=== PATIENT | male | born 1955 | race Caucasian/White ===

== ENCOUNTER 2016-05-28 11:41 | Emergency (ER) | payer MEDICARE, OTHER ==
[~2016-05-28] VITALS: Ht 180.3 cm; Wt 66.0 kg
[~2016-05-28 11:41] MED LIST: ASPI81TA82 PO; DILA8TAB4 PO; LOSA25TA31 PO; METO100 PO; NORV5TAB PO
[2016-05-28 11:43] VITALS: BP 216/117; PULSE 84; RESP 20; TEMP 97.8; O2SAT 95
[2016-05-28] MEDS ORDERED: CLINDAMYCIN PHOS 900 MG/6 ML VIAL IM ONE (13:00)
[2016-05-28] MEDS ORDERED: KETOROLAC TROMETHAMINE 60 MG/2 ML (IM) VIAL IM ONE (13:00)
[2016-05-28] MEDS ORDERED: LIDOCAINE 1%/EPINEPHrine 1:100,000 SOLN 20 ML VIAL INFIL ONE (13:00)
--- NOTE | 2016-05-28 13:04 | PD ---
HPI Chief Complaint: Skin Problem Time Seen by Provider: 12:59 Travel History International Travel<30 days: No Contact w/Intl Traveler<30days: No Traveled to known affect area: No History of Present Illness HPI 61-year-old male presents the emergency department with abscess to the right upper arm. 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 Patient states he had some erythema in the area yesterday and today has a very large indurated firm abscess with pain 10 over 10. Patient is in moderate distress. He denies fever, chills, or other symptoms. He has history of MRSA in the past. He is allergic to simvastatin. PFSH Past Medical History Arthritis: Yes Asthma: No Blood Disorders: No Anxiety: Yes Depression: No Heart Rhythm Problems: No Cancer: Yes Cardiovascular Problems: Yes Chemotherapy: Yes Chest Pain: No Congestive Heart Failure: No COPD: No Cerebrovascular Accident: Yes Coronary Artery Disease: Yes Diabetes: No Diminished Hearing: No Endocrine: No GERD: No Genitourinary: No Headaches: No Hepatitis: Yes (HEP C) Hiatal Hernia: No Hypertension: Yes Immune Disorder: Yes (HEP C) Kidney Stones: No Musculoskeletal: Yes Neurologic: Yes Psychiatric: Yes (PTSD) Respiratory: No Migraines: No Myocardial Infarction: Yes (2007) Radiation Therapy: Yes Renal Failure: No Seizures: No Sleep Apnea: Yes Ulcer: Yes Past Surgical History Abdominal Surgery: No AICD: No Appendectomy: No Arteriovenous Shunt: No Cardiac Surgery: No Cholecystectomy: No Ear Surgery: No Endocrine Surgery: No Eye Surgery: Yes Genitourinary Surgery: No Gynecologic Surgery: No Insulin Pump: No Joint Replacement: Yes (L SHOULDER) Oral Surgery: No Pacemaker: No Thoracic Surgery: No Other Surgery: Yes (PLASTIC SURGERY TO HEAD AND FACE ,) Social History Alcohol Use: No Tobacco Use: Yes (1 ppd) Substance Use: No Allergies-Medications (Allergen,Severity, Reaction): Coded Allergies: Simvastatin (Verified Allergy, Severe, Joint Pain, 10/07/15) COULD NOT TOLERATE STATINS *MDRO Multi-Drug Resistant Organism (Verified Allergy, Unknown, 10/07/15) MRSA Reported Meds & Prescriptions Reported Meds & Active Scripts Active Reported Norvasc (Amlodipine Besylate) 5 Mg Tab 5 Mg PO DAILY Dilaudid 8 mg (Hydromorphone HCl) 8 Mg Tab 8 Mg PO Q6H PRN Cozaar (Losartan Potassium) 25 Mg Tab 25 Mg PO DAILY Aspir-81 (Aspirin) 81 Mg Tab 162 Mg PO DAILY Metoprolol Tartrate 100 Mg Tab 100 Mg PO BID Review of Systems Except as stated in HPI: all other systems reviewed are Neg General / Constitutional: No: Fever Eyes: No: Visual changes HENT: No: Headaches Cardiovascular: No: Chest Pain or Discomfort Respiratory: No: Shortness of Breath Gastrointestinal: No: Abdominal Pain Genitourinary: No: Dysuria Musculoskeletal: No: Pain Skin: Positive Other (abscess), No Rash Neurologic: No: Weakness Psychiatric: No: Depression Endocrine: No: Polydipsia Hematologic/Lymphatic: No: Easy Bruising Physical Exam Narrative GENERAL: Patient is in moderate distress. SKIN: Warm and dry. Patient has a large obvious abscess to the right upper inner arm measuring 7 cm x 5 cm with localized erythema but no lymphangitis. HEAD: Atraumatic. Normocephalic. EYES: Pupils equal and round. No scleral icterus. No injection or drainage. ENT: No nasal bleeding or discharge. Mucous membranes pink and moist. Pharynx is normal. NECK: Trachea midline. No JVD. Supple without significant lymphadenopathy. CARDIOVASCULAR: Regular rate and rhythm. RESPIRATORY: No accessory muscle use. Clear to auscultation. Breath sounds equal bilaterally. MUSCULOSKELETAL: Extremities without clubbing, cyanosis, or edema. No obvious deformities. NEUROLOGICAL: Awake and alert. No obvious cranial nerve deficits. Motor grossly within normal limits. Five out of 5 muscle strength in the arms and legs. Normal speech. PSYCHIATRIC: Appropriate mood and affect; insight and judgment normal. Data Data Last Documented VS Vital Signs Date Time Temp Pulse Resp B/P Pulse Ox O2 Delivery O2 Flow Rate FiO2 05/28/16 11:43 97.8 84 20 216/117 95 Room Air Orders Wound Culture And Gram Stain (05/28/16 12:57) Ketorolac Inj (Toradol Inj) (05/28/16 13:00) Clindamycin Inj (Cleocin Inj) (05/28/16 13:00) Lidocai-Epi 1%-1:100,000 Inj (Xylocaine- (05/28/16 13:00) MDM Medical Decision Making Medical Screen Exam Complete: Yes Emergency Medical Condition: Yes Medical Record Reviewed: Yes Differential Diagnosis Cellulitis. Abscess. MRSA. Narrative Course Patient is medically stable at time of exam. I&D of abscess is performed with a large amount of pus removed as well as blood clots, and packing is applied. Patient is given 900 mg clindamycin IM as well as 60 mg Toradol IM. Wound cultures sent to the lab. Patient is given a prescription for clindamycin 300 mg 4 times a day for 10 days. Patient is given a prescription for ibuprofen 800 mg 3 times daily with food # 30. Dressing is to remain in place as discussed with the patient. Patient is return to the emergency Department in 2 days for packing removal and wound check. Patient should return sooner for any worsening symptoms develop as discussed. Work note is given. Procedures Procedure Narrative After the risks and benefits were discussed the following procedure was performed: INCISION AND DRAINAGE OF ABSCESS: The area was prepped and was sterilely draped. A subcutaneous wheal of 1 % Xylocaine with epinephrine with a total number 3 mL was used to anesthetize the area. The area was properly anesthetized. A number 11 scalpel was used to make a 1-cm incision across the area of the abscess. Cultures were obtained. The abscess was drained an irrigated with normal saline. Quarter inch iodoform packing was placed in the wound. Sterile dressing applied. Patient advised to have packing removed in two days. Diagnosis Primary Impression: Abscess Patient Instructions: Abscess Incision and Drainage (ED), General Instructions Departure Forms: Work Release Enter return to work date: Jun 01, 2016 Additional Instructions: I&D of abscess is performed with a large amount of pus removed as well as blood clots, and packing is applied. Patient is given 900 mg clindamycin IM as well as 60 mg Toradol IM. Wound cultures sent to the lab. Patient is given a prescription for clindamycin 300 mg 4 times a day for 10 days. Patient is given a prescription for ibuprofen 800 mg 3 times daily with food # 30. Dressing is to remain in place as discussed with the patient. Patient is return to the emergency Department in 2 days for packing removal and wound check. Patient should return sooner for any worsening symptoms develop as discussed. Work note is given. Med/Other Pt SpecificInfo: Prescription(s) given Disposition: 01 DISCHARGE HOME Condition: Stable Luther Villalba May 28, 2016 13:04
[2016-05-28] MEDS ORDERED: IBUP800T23 PO (13:06)
[2016-05-28] MEDS ORDERED: CLIN1CAP5 PO (13:06)
[2016-05-28] MEDS ORDERED: CLINDAMYCIN PHOS 600 MG/4 ML VIAL IM ONE (13:15)
== END 2016-05-28 14:36 | disposition home or self-care (01) ==
LOC: NEPB 11:41
DX: L02.413 Cutaneous abscess of right upper limb (principal); B95.61 Methicillin susceptible Staphylococcus aureus infection as the cause of diseases classified elsewhere
CPT/HCPCS: 10061; 86403; 87070; 87186; 96372; 99283; J1885

== ENCOUNTER 2016-05-29 12:07 | Inpatient (IN) | payer MEDICARE, OTHER ==
[2016-05-29] VITALS (12 sets, daily range): BP systolic 129–175; BP diastolic 58–100; PULSE 56–104; RESP 12–20; TEMP 92.7–99.2; O2SAT 95–99
[~2016-05-29] VITALS: Ht 180.3 cm; Wt 73.8 kg
[~2016-05-29 12:07] MED LIST changes: +CLIN1CAP5 PO; +IBUP800T23 PO; +NORMOSOL R INJ 2,000 ML IV ONE; +PHENYLEPH/NS 1000 MCG/10 ML SYR IV ONE; +PROPOFOL 200 MG/20 ML AMP IV ONE; +ePHEDrine/NS 25 MG/5 ML SYR IV ONE
[2016-05-29] MEDS ORDERED: MORPHINE SULFATE 8 MG/ML INJ ONE (12:19)
[2016-05-29] MEDS ORDERED: ONDANSETRON HCL 4 MG/2 ML VIAL ONE (12:19)
--- NOTE | 2016-05-29 12:41 | PD ---
HPI Chief Complaint: Bleeding Time Seen by Provider: 12:13 Travel History International Travel<30 days: No Contact w/Intl Traveler<30days: No Traveled to known affect area: No History of Present Illness HPI Patient is a pleasant 61-year-old male who presents the emergency department with complaint of bleeding. Patient was here yesterday and had an I&D of an abscess in his right upper extremity on the inner aspect of the bicep. 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 The abscess was incised, drained and purulent fluid and a small amount of clot was removed. This is packed and patient has been doing well in the interim. Approximately 15 minutes prior to arrival patient had pulsatile blood coming from the area of the incision and drainage. He notes pain at the site, denies any lightheadedness, dizziness or syncope. PFSH Past Medical History Arthritis: Yes Asthma: No Blood Disorders: No Anxiety: Yes Depression: No Heart Rhythm Problems: No Cancer: Yes Cardiovascular Problems: Yes Chemotherapy: Yes (X 2 R/T PROSTATE CA) Chest Pain: No Congestive Heart Failure: No COPD: No Cerebrovascular Accident: Yes Coronary Artery Disease: Yes Diabetes: No Diminished Hearing: No Endocrine: No Gastrointestinal Disorders: Yes GERD: No Genitourinary: No Headaches: No Hepatitis: Yes (HEP C) Hiatal Hernia: No Hypertension: Yes Immune Disorder: Yes (HEP C) Kidney Stones: No Musculoskeletal: Yes Neurologic: Yes Psychiatric: Yes (PTSD) Respiratory: No Migraines: No Myocardial Infarction: Yes (2007) Radiation Therapy: Yes Renal Failure: No Seizures: No Sleep Apnea: Yes Ulcer: Yes Past Surgical History Abdominal Surgery: No AICD: No Appendectomy: No Arteriovenous Shunt: No Cardiac Surgery: No Cholecystectomy: No Ear Surgery: No Endocrine Surgery: No Eye Surgery: Yes Genitourinary Surgery: No Gynecologic Surgery: No Insulin Pump: No Joint Replacement: Yes (L SHOULDER) Neurologic Surgery: No Oral Surgery: No Pacemaker: No Thoracic Surgery: No Other Surgery: Yes (PLASTIC SURGERY TO HEAD AND FACE ,) Social History Alcohol Use: No Tobacco Use: Yes (1 ppd) Substance Use: No Allergies-Medications (Allergen,Severity, Reaction): Coded Allergies: Simvastatin (Verified Allergy, Severe, Joint Pain, 05/29/16) COULD NOT TOLERATE STATINS *MDRO Multi-Drug Resistant Organism (Verified Allergy, Unknown, 05/29/16) MRSA Reported Meds & Prescriptions Reported Meds & Active Scripts Active Ibuprofen 800 Mg Tab 800 Mg PO Q8H PRN Clindamycin (Clindamycin HCl) 150 Mg Cap 300 Mg PO Q6H 10 Days Reported Norvasc (Amlodipine Besylate) 5 Mg Tab 5 Mg PO DAILY Dilaudid 8 mg (Hydromorphone HCl) 8 Mg Tab 8 Mg PO Q6H PRN Cozaar (Losartan Potassium) 25 Mg Tab 25 Mg PO DAILY Aspir-81 (Aspirin) 81 Mg Tab 162 Mg PO DAILY Metoprolol Tartrate 100 Mg Tab 100 Mg PO BID Review of Systems ROS Limitations: Clinical Condition Except as stated in HPI: all other systems reviewed are Neg Physical Exam Exam Limitations: Clinical Condition Narrative GENERAL: Well-appearing male with arterial bleeding come from the right upper extremity SKIN: Warm slightly diaphoretic. Focused exam of the skin of the right upper extremity reveals wound, see below HEAD: Normocephalic. EYES: No scleral icterus. No injection or drainage. ENT: Mucous membranes pink and moist. NECK: Supple CARDIOVASCULAR: Regular rate and rhythm. RESPIRATORY: No accessory muscle use. MUSCULOSKELETAL: Right upper extremity incision and drainage site along the inner aspect of the bicep region with ecchymotic swollen region with palpable thrill, pulse. There is active arterial bleeding, direct pressure was placed. Distal pulses, capillary refill are intact. Denies any numbness or tingling in distal strength/function intact. NEUROLOGICAL: Awake and alert. Normal speech. PSYCHIATRIC: Appropriate mood and affect; insight and judgment normal. Data Data Last Documented VS Vital Signs Date Time Temp Pulse Resp B/P Pulse Ox O2 Delivery O2 Flow Rate FiO2 05/29/16 12:07 98.0 104 20 140/100 99 Orders Basic Metabolic Panel (Bmp) (05/29/16 12:14) Complete Blood Count With Diff (05/29/16 12:14) Prothrombin Time / Inr (Pt) (05/29/16 12:14) Act Partial Throm Time (Ptt) (05/29/16 12:14) Type And Screen (05/29/16 12:14) Iv Access Insert/Monitor (05/29/16 12:14) Ecg Monitoring (05/29/16 12:14) Oximetry (05/29/16 12:14) Oxygen Administration (05/29/16 12:14) Sodium Chloride 0.9% Flush (Ns Flush) (05/29/16 12:15) Us Arm Hematoma/Pseudoaneurysm (05/29/16 ) Morphine Inj (Morphine Inj) (05/29/16 12:19) Ondansetron Inj (Zofran Inj) (05/29/16 12:19) Admit Order (Ed Use Only) (05/29/16 12:34) MDM Medical Decision Making Medical Screen Exam Complete: Yes Emergency Medical Condition: Yes Medical Record Reviewed: Yes Differential Diagnosis 61-year-old male here with complaint of right upper extremity bleeding after I& D performed yesterday. Differential includes pseudoaneurysm, AV fistula, arterial and/or venous injury. Narrative Course Patient emergently bedded and met by myself. Placed on monitor, multiple IV attempts were unsuccessful by nursing in the EJ was placed by myself. Blood obtained. Direct pressure was held along the active arterial bleeding in the right upper extremity with hemostasis. Patient's distal pulses remain intact. A tourniquet was placed prophylactically but was not use while the patient was in the emergency department. Vascular surgery was emergently consulted and emergent ultrasound was performed to evaluate for AV fistula versus pseudoaneurysm. Dr. Martino came to bedside as ultrasound was being performed, showing pseudoaneurysm. Patient will be taken emergently to the OR for operative control. Labs remain pending at time of this dictation. Critical Care Narrative Aggregate critical care time was 40 minutes. Time to perform other separately billable procedures was not included in the critical care time. My time did not include minutes spent treating any other patients simultaneously or on activities that did not directly contribute to the patient's treatment. The services I provided to this patient were to treat and/or prevent clinically significant deterioration that could result in: Hemorrhage, loss of limb, , disability I provided critical care services requiring my management, as noted below: Chart data review, documentation time, medication orders and management, vital sign assessments/reviewing monitor data, ordering and reviewing lab tests, ordering and interpreting/reviewing x-rays and diagnostic studies, care of the patient and discussion of the patient with the admitting physicians. Procedures Procedure Narrative External jugular 18-gauge IV was placed in the left neck with success. Diagnosis Primary Impression: Pseudoaneurysm of brachial artery Admitting Information Admitting Physician Requests: Admit Sita Heard MD May 29, 2016 12:41
[2016-05-29 12:45] LABS: AUTOMATED NEUTROPHIL # 7.8 TH/MM3 (1.8-7.7); BASOPHIL # 0.1 TH/MM3 (0-0.2); BASOPHIL % 0.6 % (0.0-2.0); EOSINOPHIL # 0.2 TH/MM3 (0-0.4); EOSINOPHIL % 2.2 % (0.0-4.0); HEMATOCRIT 33.4 % (39.0-51.0); HEMO FLAGS DIFF FINAL; LYMPH % 15.2 % (9.0-44.0); LYMPHOCYTE # 1.6 TH/MM3 (1.0-4.8); MEAN CELL VOLUME 84.5 FL (80.0-100.0); MEAN CORPUSCULAR HEMOGLOBIN 28.9 PG (27.0-34.0); MEAN CORPUSCULAR HGB CONC 34.2 % (32.0-36.0); MONO % 9.4 % (0.0-8.0); NEUT % 72.6 % (16.0-70.0); PLATELET COUNT 248 TH/MM3 (150-450); RED BLOOD COUNT 3.96 MIL/MM3 (4.50-5.90); RED CELL DISTRIBUTION WIDTH 14.9 % (11.6-17.2); WHITE BLOOD COUNT 10.8 TH/MM3 (4.0-11.0)
--- NOTE | 2016-05-29 12:50 | RADRPT ---
EXAM DATE/TIME: 05/29/2016 12:19 CORRECTION Corrected on: May 29, 2016; [facility] COMPARISON: No previous studies available for comparison. INDICATIONS : Right arm puncture four days ago, irrigation and drainage 05/28/16. Patient has pulsatile mass right a rm today. MEDICAL HISTORY : Hypertension. Cardiovascular disease Hepatitis C. Chemotherapy. CVA. CAD. SURGICAL HISTORY : Left shoulder surgery. I&D 05/28/16 right arm. ENCOUNTER: Initial ACUITY: 1 day PAIN SCORE: Nonresponsive. LOCATION: Right arm. AREA EVALUATED: Right arm. FINDINGS: There is a pseudoaneurysm in the right arm with pulsatile flow is 2.5 cm. CONCLUSION: Pseudoaneurysm right arm. Corey Hays MD FACR on May 29, 2016 at 12:48 Board Certified Radiologist. This report was verified electronically. Corey Hays MD FACR on May 29, 2016 at 13:10 Board Certified Radiologist. This report was verified electronically.
--- NOTE | 2016-05-29 12:52 | PD.VS.CON ---
History of Present Illness Chief Complaint: R arm pseudoaneurysm Consult Requested by: Dr. Heard, ED History of Present Illness 61 yo male with h/o "boil" R UE, lanced in ED yesterday, swollen today and presented to ED, started bleeding and clinically has clear pseudoaneurysm. No hand trouble. 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 Home Medications Active Scripts Ibuprofen 800 Mg [id number] Mg PO Q8H PRN (Pain/Inflammation) #30 TAB Prov:Guido Del Rio MD 05/28/16 Clindamycin 150 Mg [id number] Mg PO Q6H 10 Days Prov:Guido Del Rio MD 05/28/16 Reported Medications Norvasc 5 Mg Tab5 Mg PO DAILY 09/01/14 Hydromorphone 8 mg (Dilaudid 8 mg)8 Mg Tab8 Mg PO Q6H PRN 07/04/13 Losartan Potassium (Cozaar)25 Mg Tab25 Mg PO DAILY 12/05/11 Aspirin (Aspir-81)81 Mg [id number] Mg PO DAILY 12/05/11 Metoprolol Tartrate 100 Mg [id number] Mg PO BID 12/05/11 Coded Allergies: Simvastatin (Verified Allergy, Severe, Joint Pain, 05/29/16) COULD NOT TOLERATE STATINS *MDRO Multi-Drug Resistant Organism (Verified Allergy, Unknown, 05/29/16) MRSA Review of Systems Constitutional: DENIES: Fever, Chills Cardiovascular: DENIES: Chest pain, Claudication Physical Exam Vitals/I&O Date Time Temp Pulse Resp B/P Pulse Ox O2 Delivery O2 Flow Rate FiO2 05/29/16 12:07 98.0 104 20 140/100 99 Neuro: intact, alert, responsive HEENT: NC/AT old posterior head trauma Neck: no JVD Heart: reg rate Lungs: nonlabored Vascular: R UE palpable ulnar pulse R UE with clear pseudoaneurysm with no active extravasation but very tenuous Laboratory Tests Test 05/29/16 12:35 White Blood Count 10.8 Red Blood Count 3.96 Hemoglobin 11.4 Hematocrit 33.4 Mean Corpuscular Volume 84.5 Mean Corpuscular Hemoglobin 28.9 Mean Corpuscular Hemoglobin 34.2 Concent Red Cell Distribution Width 14.9 Platelet Count 248 Mean Platelet Volume 7.9 Neutrophils (%) (Auto) 72.6 Lymphocytes (%) (Auto) 15.2 Monocytes (%) (Auto) 9.4 Eosinophils (%) (Auto) 2.2 Basophils (%) (Auto) 0.6 Neutrophils # (Auto) 7.8 Lymphocytes # (Auto) 1.6 Monocytes # (Auto) 1.0 Eosinophils # (Auto) 0.2 Basophils # (Auto) 0.1 CBC Comment DIFF FINAL Differential Comment Assessment and Plan Plan OR emergently for exploration and likely arterial bypass. I explained the procedure to the patient and he understands. Operative site marked. To OR. Ismael Martino MD May 29, 2016 12:51
[2016-05-29 12:58] LABS: APTT (PATIENT) 22.2 SEC (24.3-30.1); PROTHROMBIN TIME - PATIENT 10.8 SEC (9.8-11.6)
[2016-05-29 12:59] LABS: BICARBONATE 23.8 MEQ/L (21.0-32.0); POTASSIUM 3.8 MEQ/L (3.5-5.1)
[2016-05-29] MEDS ORDERED: ceFAZolin INJ 1,000 MG VIAL IV ONE (13:35)
[2016-05-29] MEDS ORDERED: HEPARIN SODIUM - IV 10,000 UNITS/10 ML VIAL ONE (14:10)
[2016-05-29] MEDS ORDERED: ceFAZolin 2 GM PREMIX 50 ML ONE (14:10)
[2016-05-29] MEDS ORDERED: HEPARIN SODIUM - SQ 10,000 UNITS/ML VIAL ONE (14:10)
[2016-05-29] MEDS ORDERED: THROMBIN (TOPICAL) 5,000 UNIT VIAL OTHER ONE (15:04)
--- NOTE | 2016-05-29 15:35 | HHI.PR ---
Immediate Post Op Note Procedure Date: May 29, 2016 Pre Op Diagnosis: RIGHT brachial pseudoaneurysm Post Op Diagnosis: RIGHT brachial pseudoaneurysm Surgeon: Ismael Martino Brick Burner(s): Kristy Dorsey Procedure: R brachial artery bypass with interposition R GSV (reversed) Findings: pseudoaneurysm with degenerated artery, very inflamed tissue Additional Information: strong radial and ulnar Doppler signals after bypass Complications: none apparent Specimen(s) removed: none Estimated blood loss: 250 mL Anesthesia: General Drains: None Fluids: 4700 mL x'oid; 250 mL UOP IVF Patient to: Other ([facility]) Patient Condition: Good Implant/Devices: SEE IMPLANT LOG (if applicable) Date/Time of Procedure: SEE SURGICAL CARE RECORD Ismael Martino MD May 29, 2016 15:35
[2016-05-29] MEDS ORDERED: diphenhydrAMINE HCL 50 MG/ML VIAL IV PRN (15:45)
[2016-05-29] MEDS ORDERED: diphenhydrAMINE HCL 25 MG CAP PO PRN (15:45)
[2016-05-29] MEDS ORDERED: NALOXONE HCL 0.4 MG/ML AMP IV PRN (15:45)
[2016-05-29] MEDS ORDERED: DO NOT ADM ANY ANTICOAGULANT DRUGS XX PRN (15:48)
[2016-05-29] MEDS ORDERED: THROMBIN (TOPICAL) 5,000 UNIT VIAL ONE (16:10)
[2016-05-29] MEDS ORDERED: MIDAZOLAM HCL 2 MG/2 ML VIAL ONE (16:13)
[2016-05-29] MEDS ORDERED: MORPHINE SULFATE 4 MG/ML INJ ONE ×3 (16:13→17:49)
[2016-05-29] MEDS ORDERED: fentaNYL CITRATE 250 MCG/5 ML AMP ONE (16:13)
[2016-05-29] MEDS ORDERED: ENALAPRILAT 2.5 MG/2 ML VIAL ONE (16:38)
[2016-05-29] MEDS: HYDROmorphone HCL PCA 6 MG/30 ML IV SCH ×2 (16:48→23:07)
[2016-05-29 18:00] LABS: HEMATOCRIT 26.4 % (39.0-51.0); MEAN CELL VOLUME 83.7 FL (80.0-100.0); MEAN CORPUSCULAR HEMOGLOBIN 28.4 PG (27.0-34.0); MEAN CORPUSCULAR HGB CONC 33.9 % (32.0-36.0); PLATELET COUNT 194 TH/MM3 (150-450); RED BLOOD COUNT 3.16 MIL/MM3 (4.50-5.90); REVIEW FLAG FINAL; WHITE BLOOD COUNT 9.5 TH/MM3 (4.0-11.0)
[2016-05-29] MEDS: MORPHINE SULFATE 4 MG/ML INJ IV PRN ×5 (18:09→22:33)
[2016-05-29 18:29] LABS: POTASSIUM 3.4 MEQ/L (3.5-5.1)
[2016-05-29 19:15] LABS: CALCIUM-PROTEIN CORRECTED 7.7 MG/DL (8.5-10.1)
[2016-05-29] MEDS ORDERED: ENOXAPARIN SODIUM 30 MG/0.3 ML SYRINGE SQ SCH (20:00)
[2016-05-29] MEDS: ATORVASTATIN 40 MG TAB PO SCH (20:30)
[2016-05-29] MEDS: SODIUM CHLORIDE 0.9% FLUSH 5 ML FLUSH IVF PRN (20:30)
[2016-05-29] MEDS: METOPROLOL TARTRATE 50 MG TAB PO SCH (20:30)
[2016-05-29] MEDS: DOCUSATE SODIUM 100 MG CAP PO SCH (21:00)
[2016-05-29] MEDS: PCA - TOTAL MG DILAUDID DELIVERED PER SHIFT OTHER SCH (22:00)
[2016-05-29] MEDS: ceFAZolin 1,000 MG/NS 100 ML IV SCH ×2 (22:42)
[2016-05-30] VITALS (15 sets, daily range): BP systolic 129–164; BP diastolic 59–90; PULSE 51–80; RESP 16–20; TEMP 98.7–102.5; O2SAT 94–98
[2016-05-30] MEDS: MORPHINE SULFATE 4 MG/ML INJ IV PRN ×7 (01:51→22:53)
[2016-05-30] MEDS: METOPROLOL TARTRATE 5 MG/5 ML VIAL IV PUSH PRN (01:52)
[2016-05-30] MEDS ORDERED: ACETAMINOPHEN 325 MG TAB ONE (03:17)
[2016-05-30] MEDS ORDERED: ACETAMINOPHEN 325 MG TAB PO PRN (03:30)
[2016-05-30 04:09] LABS: HEMATOCRIT 24.4 % (39.0-51.0); MEAN CELL VOLUME 83.4 FL (80.0-100.0); MEAN CORPUSCULAR HEMOGLOBIN 28.6 PG (27.0-34.0); MEAN CORPUSCULAR HGB CONC 34.3 % (32.0-36.0); PLATELET COUNT 177 TH/MM3 (150-450); RED BLOOD COUNT 2.93 MIL/MM3 (4.50-5.90); RED CELL DISTRIBUTION WIDTH 15.2 % (11.6-17.2); REVIEW FLAG FINAL; WHITE BLOOD COUNT 5.9 TH/MM3 (4.0-11.0)
[2016-05-30 04:27] LABS: BICARBONATE 25.5 MEQ/L (21.0-32.0); POTASSIUM 3.8 MEQ/L (3.5-5.1)
[2016-05-30] MEDS: PCA - TOTAL MG DILAUDID DELIVERED PER SHIFT OTHER SCH ×3 (06:00→22:00)
[2016-05-30] MEDS: ceFAZolin 1,000 MG/NS 100 ML IV SCH ×6 (06:18→22:49)
[2016-05-30] MEDS: PANTOPRAZOLE SOD 40 MG DELAYED RELEASE TAB PO SCH (08:12)
[2016-05-30] MEDS: METOPROLOL TARTRATE 50 MG TAB PO SCH ×2 (08:12→20:39)
[2016-05-30] MEDS: ASPIRIN 325 MG TAB PO SCH (08:12)
[2016-05-30] MEDS: DOCUSATE SODIUM 100 MG CAP PO SCH ×2 (08:13→20:39)
[2016-05-30] MEDS: SODIUM CHLORIDE 0.9% FLUSH 5 ML FLUSH IVF PRN (08:14)
--- NOTE | 2016-05-30 09:14 | PD.VS.PN ---
Subjective POD #: 1 Procedure(s): R brachial artery bypass with rR GSV Subjective/Hospital Course Burning in R arm but hand ok with good strength and normal motor function. Objective Vitals/I&O Date Time Temp Pulse Resp B/P Pulse Ox O2 Delivery O2 Flow Rate FiO2 05/30/16 08:17 98 Nasal Cannula 2.00 05/30/16 08:00 58 05/30/16 08:00 99.0 64 20 164/72 94 155/59 05/30/16 07:17 18 05/30/16 06:00 22 05/30/16 06:00 80 05/30/16 03:00 102.5 76 18 156/78 96 135/64 05/30/16 03:00 76 05/30/16 02:00 73 05/30/16 01:20 98 Nasal Cannula 2.00 05/30/16 01:00 61 05/30/16 00:00 58 05/29/16 23:07 18 05/29/16 23:00 99.2 65 18 146/90 95 145/58 05/29/16 23:00 76 05/29/16 22:00 71 05/29/16 22:00 20 05/29/16 21:00 72 05/29/16 20:00 70 05/29/16 19:01 18 05/29/16 19:00 72 05/29/16 19:00 97.6 72 18 129/62 97 05/29/16 16:48 12 05/29/16 16:24 92.7 62 12 154/62 98 151/93 05/29/16 16:00 56 05/29/16 12:50 86 18 150/86 96 Room Air 05/29/16 12:45 82 18 169/91 97 Room Air 05/29/16 12:38 84 18 175/98 96 Room Air 05/29/16 12:30 85 18 97 Room Air 05/29/16 12:30 96 Room Air 05/29/16 12:30 97 Room Air 05/29/16 12:07 98.0 104 20 140/100 99 Exam: R arm wrapped Palpable R radial pulse, 2+ Good hand strength Laboratory Laboratory Tests Test 05/29/16 05/29/16 05/29/16 05/30/16 12:35 16:00 17:30 03:45 White Blood Count 10.8 9.5 5.9 Red Blood Count 3.96 3.16 2.93 Hemoglobin 11.4 9.0 8.4 Hematocrit 33.4 26.4 24.4 Mean Corpuscular Volume 84.5 83.7 83.4 Mean Corpuscular Hemoglobin 28.9 28.4 28.6 Mean Corpuscular Hemoglobin 34.2 33.9 34.3 Concent Red Cell Distribution Width 14.9 15.0 15.2 Platelet Count 248 194 177 Mean Platelet Volume 7.9 7.5 7.9 Neutrophils (%) (Auto) 72.6 Lymphocytes (%) (Auto) 15.2 Monocytes (%) (Auto) 9.4 Eosinophils (%) (Auto) 2.2 Basophils (%) (Auto) 0.6 Neutrophils # (Auto) 7.8 Lymphocytes # (Auto) 1.6 Monocytes # (Auto) 1.0 Eosinophils # (Auto) 0.2 Basophils # (Auto) 0.1 CBC Comment DIFF FINAL Differential Comment Prothrombin Time 10.8 Prothromb Time International 1.0 Ratio Activated Partial 22.2 Thromboplast Time Sodium Level 138 140 143 Potassium Level 3.8 3.4 3.8 Chloride Level 105 105 108 Carbon Dioxide Level 23.8 26.0 25.5 Anion Gap 9 9 10 Blood Urea Nitrogen 48 39 36 Creatinine 2.47 2.00 2.10 Estimat Glomerular Filtration 27 34 32 Rate Random Glucose 142 101 115 Calcium Level 8.1 7.0 7.5 Blood Type O POSITIVE Antibody Screen NEGATIVE Nasal Screen MRSA (PCR) NEGATIVE Protein Corrected Calcium 7.7 Total Protein 5.8 Assessment and Plan Plan 1. Bypass patent; needs PT/hand exercises 2. Hct stable. 3. Will take arm dressing down tomorrow 4. Cardiac diet, Servin out, a-line out 5. Creatinine 2.1 from 2.5. Likely baseline. Good UOP. Ismael Martino MD May 30, 2016 09:14
[2016-05-30] MEDS: HYDROmorphone HCL PCA 6 MG/30 ML IV SCH (11:10)
[2016-05-30] MEDS: HEPARIN SODIUM - SQ 10,000 UNITS/ML VIAL SQ SCH ×2 (15:16→22:49)
[2016-05-30] MEDS: ATORVASTATIN 40 MG TAB PO SCH (20:39)
[2016-05-31] VITALS (11 sets, daily range): BP systolic 155–175; BP diastolic 74–94; PULSE 50–72; RESP 16–18; TEMP 97.4–98.3; O2SAT 94–99
[2016-05-31] MEDS: SODIUM CHLOR 0.9% 1000 ML INJ 1,000 ML IV SCH ×3 (00:59→17:38)
[2016-05-31] MEDS: MORPHINE SULFATE 4 MG/ML INJ IV PRN ×8 (01:43→23:52)
[2016-05-31] MEDS: PCA - TOTAL MG DILAUDID DELIVERED PER SHIFT OTHER SCH ×3 (05:28→22:00)
[2016-05-31] MEDS: HEPARIN SODIUM - SQ 10,000 UNITS/ML VIAL SQ SCH ×2 (06:07→15:00)
[2016-05-31] MEDS: ceFAZolin 1,000 MG/NS 100 ML IV SCH ×4 (06:07→15:00)
[2016-05-31 07:11] LABS: HEMATOCRIT 22.2 % (39.0-51.0); MEAN CELL VOLUME 84.7 FL (80.0-100.0); MEAN CORPUSCULAR HEMOGLOBIN 28.6 PG (27.0-34.0); MEAN CORPUSCULAR HGB CONC 33.8 % (32.0-36.0); PLATELET COUNT 158 TH/MM3 (150-450); RED BLOOD COUNT 2.62 MIL/MM3 (4.50-5.90); RED CELL DISTRIBUTION WIDTH 15.2 % (11.6-17.2); REVIEW FLAG FINAL; WHITE BLOOD COUNT 5.7 TH/MM3 (4.0-11.0)
[2016-05-31 07:26] LABS: BICARBONATE 25.5 MEQ/L (21.0-32.0); POTASSIUM 4.3 MEQ/L (3.5-5.1)
[2016-05-31] MEDS: PANTOPRAZOLE SOD 40 MG DELAYED RELEASE TAB PO SCH (08:21)
[2016-05-31] MEDS: ASPIRIN 325 MG TAB PO SCH (08:21)
[2016-05-31] MEDS: DOCUSATE SODIUM 100 MG CAP PO SCH ×2 (08:21→20:01)
[2016-05-31] MEDS: METOPROLOL TARTRATE 50 MG TAB PO SCH ×2 (08:21→20:01)
[2016-05-31] MEDS: HYDROmorphone HCL PCA 6 MG/30 ML IV SCH (08:34)
--- NOTE | 2016-05-31 09:20 | MP ---
cc: EDWARDO MARTINO MD DATE OF SURGERY: 05/29/2016 PREOPERATIVE DIAGNOSIS: 1. Right brachial artery pseudoaneurysm. POSTOPERATIVE DIAGNOSIS: 1. Right brachial artery pseudoaneurysm. PROCEDURE Repair of right brachial artery pseudoaneurysm with interposition graft using reverse right saphenous vein. ATTENDING SURGEON Edwardo Martino MD BRAND EXECUTIVE SURGEON Kristy Dorsey ANESTHESIA General. INDICATION Mr. Beard is a 61-year-old gentleman who came in through the emergency department with a clear pseudoaneurysm, active extravasation and zoë bleeding. Manual pressure was held and he was taken to the operating room emergently. DESCRIPTION OF PROCEDURE No informed consent was obtained from the patient, this is an emergency procedure, but I had a long conversation with the patient and detailed the operative risks and he verbally provided consent in front of several witnesses. He was taken to the operating room, placed supine on the operating table. Appropriate timeout was taken to ensure the patient's identity, the operative site and planned procedure. 2 grams of Kefzol was initiated prior to skin incision, but we discontinued after a single preoperative dose. Everyone in the room agreed with the timeout procedure. His right arm was prepped and draped as well as both lower extremities. Incision was made in the medial aspect of the upper thigh on the right-hand side, carried down to subcutaneous tissue with electrocautery. The saphenous vein was identified, side branches were ligated with 3-0 Silk. The vein was marked for orientation, clamped proximally and distally, tied and resected. The wound was irrigated and closed with 2-0 Polysorb, 3-0 Polysorb and 4-0 Monocryl. Proximal control of the brachial artery was obtained. We now make an incision in the upper arm and carried down to the subcutaneous tissue with electrocautery. Dense inflammation was encountered and the mid brachial artery was encircled with a vessel loop. We then dissected down distally into the pseudoaneurysm itself. A hematoma was encountered. Two fresh ends of the artery were identified and completely and were clamped with the profunda clamps. The edges were then cleaned up and we resected these back proximally and distally. The patient was systemically heparinized with 6000 units of IV heparin. The mid brachial artery was transected, the distal ends oversewn with 3-0 Silk. The artery was spatulated and the vein was flushed and sewn end-to-end with running 6-0 Prolene suture. At the completion it was flushed and noted to be hemostastic. The vein was then clamped distally, marked for orientation and the distal end of the brachial artery was freshened surgically. The edges of the distal endobrachial artery were freshened surgically and the vein and artery were spatulated and sewn end-to-end with running 6-0 Prolene suture. At the completion it was flushed and noted to be hemostatic. There were nice Doppler signals in the wrist. The heparin was reversed with protamine. The wound was then irrigated with pulse lavage, debrided and closed with 2-0 Polysorb, 3-0 Polysorb and 3-0 Nylon. Sponge and needle counts were correct at the end of the case. I was present and scrubbed and performed the entire procedure. MD MOHAN Salazar/MO /3:38 PM /8:35 AM
--- NOTE | 2016-05-31 09:33 | PD.VS.PN ---
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 Hand ok, good strength. Objective Vitals/I&O Date Time Temp Pulse Resp B/P Pulse Ox O2 Delivery O2 Flow Rate FiO2 05/31/16 08:34 18 05/31/16 07:32 97 Nasal Cannula 2.00 05/31/16 05:30 16 05/31/16 05:28 16 05/31/16 04:00 98.2 52 16 155/80 94 05/31/16 03:30 50 05/30/16 23:50 51 05/30/16 23:00 99.0 51 16 150/85 96 05/30/16 22:00 16 05/30/16 20:39 18 05/30/16 20:00 99.4 61 16 151/86 97 Arterial Line 05/30/16 19:55 96 Nasal Cannula 2.00 05/30/16 19:08 68 05/30/16 15:00 61 05/30/16 15:00 99.7 61 20 153/90 97 05/30/16 14:00 16 05/30/16 13:20 16 05/30/16 11:10 21 05/30/16 11:00 53 05/30/16 11:00 98.7 53 20 129/80 95 05/31/16 05/31/16 05/31/16 07:00 15:00 23:00 Intake Total 1772 ml Output Total 550 ml Balance 1222 ml Exam: R UE with incision intact, minimal erythema mid-wound. R LE saphenectomy intact Pulses: Palpable radial pulse Laboratory Laboratory Tests Test 05/31/16 05:45 White Blood Count 5.7 Red Blood Count 2.62 Hemoglobin 7.5 Hematocrit 22.2 Mean Corpuscular Volume 84.7 Mean Corpuscular Hemoglobin 28.6 Mean Corpuscular Hemoglobin 33.8 Concent Red Cell Distribution Width 15.2 Platelet Count 158 Mean Platelet Volume 8.6 Sodium Level 142 Potassium Level 4.3 Chloride Level 112 Carbon Dioxide Level 25.5 Anion Gap 5 Blood Urea Nitrogen 32 Creatinine 1.83 Estimat Glomerular Filtration 38 Rate Random Glucose 101 Calcium Level 7.8 Assessment and Plan Plan 1. Bypass patent; continue hand exercises 2. Daily dry dressing 3. On Kefzol - if worsening erythema tomorrow, will broaden 4. Creatinine continues to improve - 1.8 today Ismael Martino MD May 31, 2016 09:33
[2016-05-31] MEDS ORDERED: hydrALAZINE HCL 20 MG/ML VIAL ONE (17:06)
[2016-05-31] MEDS: hydrALAZINE HCL 20 MG/ML VIAL IV PRN (17:16)
[2016-05-31] MEDS: ATORVASTATIN 40 MG TAB PO SCH (20:01)
[2016-06-01] VITALS (15 sets, daily range): BP systolic 143–197; BP diastolic 76–104; PULSE 55–81; RESP 16–18; TEMP 98.3–99.5; O2SAT 95–98
[2016-06-01] MEDS: HEPARIN SODIUM - SQ 10,000 UNITS/ML VIAL SQ SCH ×4 (01:03→23:17)
[2016-06-01] MEDS: ceFAZolin 1,000 MG/NS 100 ML IV SCH ×8 (01:03→23:17)
[2016-06-01] MEDS: MORPHINE SULFATE 4 MG/ML INJ IV PRN ×4 (03:13→21:46)
[2016-06-01] MEDS: hydrALAZINE HCL 20 MG/ML VIAL IV PRN ×3 (03:35→22:23)
[2016-06-01] MEDS: SODIUM CHLOR 0.9% 1000 ML INJ 1,000 ML IV SCH (03:38)
[2016-06-01 04:32] LABS: BICARBONATE 24.4 MEQ/L (21.0-32.0); POTASSIUM 4.3 MEQ/L (3.5-5.1)
[2016-06-01] MEDS: METOPROLOL TARTRATE 5 MG/5 ML VIAL IV PUSH PRN ×2 (04:55→05:00)
[2016-06-01 05:03] LABS: HEMATOCRIT 25.7 % (39.0-51.0); MEAN CELL VOLUME 83.3 FL (80.0-100.0); MEAN CORPUSCULAR HEMOGLOBIN 28.5 PG (27.0-34.0); MEAN CORPUSCULAR HGB CONC 34.2 % (32.0-36.0); PLATELET COUNT 170 TH/MM3 (150-450); RED BLOOD COUNT 3.09 MIL/MM3 (4.50-5.90); RED CELL DISTRIBUTION WIDTH 15.3 % (11.6-17.2); REVIEW FLAG FINAL; WHITE BLOOD COUNT 8.7 TH/MM3 (4.0-11.0)
[2016-06-01] MEDS: PCA - TOTAL MG DILAUDID DELIVERED PER SHIFT OTHER SCH (06:00)
--- NOTE | 2016-06-01 07:49 | PD.VS.PN ---
Subjective POD #: 3 Procedure(s): R brachial artery bypass with rR GSV Subjective/Hospital Course Still has arm pain but tolerable Jay po. Objective Vitals/I&O Date Time Temp Pulse Resp B/P Pulse Ox O2 Delivery O2 Flow Rate FiO2 06/01/16 07:22 96 21 06/01/16 06:00 20 06/01/16 03:00 66 06/01/16 03:00 95 Room Air 06/01/16 03:00 98.3 66 18 180/93 95 06/01/16 00:00 18 05/31/16 23:00 98.3 63 18 175/90 98 05/31/16 23:00 63 05/31/16 22:00 18 05/31/16 21:30 20 05/31/16 21:10 18 05/31/16 19:59 95 21 05/31/16 19:00 99 Room Air 05/31/16 19:00 57 05/31/16 19:00 98.3 54 18 160/81 99 05/31/16 16:00 66 05/31/16 15:15 98.3 54 18 167/94 97 05/31/16 14:00 18 05/31/16 11:25 97.4 72 18 158/74 95 05/31/16 11:25 95 Room Air 05/31/16 11:00 60 05/31/16 08:34 18 06/01/16 06/01/16 06/01/16 07:00 15:00 23:00 Intake Total 1130 ml Output Total 1350 ml Balance -220 ml Exam: R UE edematous, erythema slightly improved Pulses: palpable radial pulse Incisions: intact RUE with serous drainage to mid-arm Laboratory Laboratory Tests Test 06/01/16 03:59 White Blood Count 8.7 Red Blood Count 3.09 Hemoglobin 8.8 Hematocrit 25.7 Mean Corpuscular Volume 83.3 Mean Corpuscular Hemoglobin 28.5 Mean Corpuscular Hemoglobin 34.2 Concent Red Cell Distribution Width 15.3 Platelet Count 170 Mean Platelet Volume 9.1 Hematology Comments Sodium Level 142 Potassium Level 4.3 Chloride Level 110 Carbon Dioxide Level 24.4 Anion Gap 8 Blood Urea Nitrogen 28 Creatinine 1.51 Estimat Glomerular Filtration 48 Rate Random Glucose 89 Calcium Level 8.0 Assessment and Plan Plan 1. Bypass patent; continue hand exercises 2. Daily dry dressing 3. On Kefzol - will continue until Wednesday (7d total) 4. Creatinine continues to improve - 1.5 today 5. 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 Transfer to [facility] Ismael Martino MD Jun 01, 2016 07:49
[2016-06-01] MEDS: PANTOPRAZOLE SOD 40 MG DELAYED RELEASE TAB PO SCH (08:46)
[2016-06-01] MEDS: METOPROLOL TARTRATE 50 MG TAB PO SCH ×2 (08:46→20:53)
[2016-06-01] MEDS: DOCUSATE SODIUM 100 MG CAP PO SCH ×2 (08:46→20:53)
[2016-06-01] MEDS: ASPIRIN 325 MG TAB PO SCH (08:46)
[2016-06-01] MEDS: ATORVASTATIN 40 MG TAB PO SCH (20:53)
[2016-06-02] VITALS (31 sets, daily range): BP systolic 156–242; BP diastolic 78–103; PULSE 52–90; RESP 16–17; TEMP 98.1–98.7; O2SAT 97–99
[2016-06-02] MEDS: MORPHINE SULFATE 4 MG/ML INJ IV PRN ×7 (00:59→21:38)
[2016-06-02] MEDS: hydrALAZINE HCL 20 MG/ML VIAL IV PRN ×6 (01:07→23:23)
[2016-06-02] MEDS: HEPARIN SODIUM - SQ 10,000 UNITS/ML VIAL SQ SCH ×3 (06:34→23:19)
[2016-06-02] MEDS: ceFAZolin 1,000 MG/NS 100 ML IV SCH ×6 (06:34→23:20)
[2016-06-02] MEDS: SODIUM CHLORIDE 0.9% FLUSH 5 ML FLUSH IVF PRN (07:29)
[2016-06-02] MEDS: PANTOPRAZOLE SOD 40 MG DELAYED RELEASE TAB PO SCH (07:32)
[2016-06-02] MEDS: ASPIRIN 325 MG TAB PO SCH (07:32)
[2016-06-02] MEDS: METOPROLOL TARTRATE 50 MG TAB PO SCH ×2 (07:32→20:18)
[2016-06-02] MEDS: DOCUSATE SODIUM 100 MG CAP PO SCH ×2 (07:32→20:18)
--- NOTE | 2016-06-02 10:13 | PD.VS.PN ---
Subjective POD #: 4 Procedure(s): R brachial artery bypass with rR GSV Subjective/Hospital Course Pt c/o Right arm swelling with improvement and pain Slight serous drainage from center of incision Objective Vitals/I&O Date Time Temp Pulse Resp B/P Pulse Ox O2 Delivery O2 Flow Rate FiO2 06/02/16 09:28 98 21 06/02/16 09:00 58 06/02/16 08:00 60 06/02/16 07:49 97 Room Air 06/02/16 07:23 68 17 177/88 97 06/02/16 07:00 63 06/02/16 06:00 54 06/02/16 05:00 60 06/02/16 04:00 60 06/02/16 03:00 98 Room Air 06/02/16 03:00 98.1 60 16 163/84 98 06/02/16 03:00 60 06/02/16 02:00 61 06/02/16 01:45 156/80 06/02/16 01:00 61 06/02/16 01:00 172/92 06/02/16 00:00 70 06/01/16 23:00 76 06/01/16 23:00 98.5 81 16 168/85 97 06/01/16 23:00 97 Room Air 06/01/16 22:19 197/102 06/01/16 22:00 80 06/01/16 21:00 68 06/01/16 20:30 99.5 70 16 174/90 98 06/01/16 20:30 98 Room Air 06/01/16 20:00 66 06/01/16 19:06 97 Nasal Cannula 2.00 06/01/16 19:00 64 06/01/16 18:14 182/92 06/01/16 18:01 18 06/01/16 18:00 196/104 06/01/16 15:00 Room Air 06/01/16 15:00 98.4 57 18 170/82 98 06/01/16 15:00 57 06/01/16 11:00 55 06/01/16 11:00 96 Room Air 06/01/16 11:00 98.6 55 18 143/84 96 06/02/16 06/02/16 06/02/16 07:00 15:00 23:00 Intake Total 340 ml Output Total 1800 ml Balance -1460 ml Exam: GENERAL: A&OX3, GSC15, NAD noted SKIN: Warm and dry. sutures intact, dressing changed while at BS, Incision to RUE intact with "improved" swelling and minimal serous drainage (center) of incision NECK: Supple CARDIOVASCULAR: RRR RESPIRATORY: Breath sounds equal bilaterally. No accessory muscle use. Bilat radial pulses palpable strong and bounding Pulses: Radial pulses palpable and strong Incisions: Sutures and incision to right arm intact Laboratory Allergies Coded Allergies Type Severity Reaction Last Updated Verified Simvastatin Allergy Severe Joint Pain 05/29/16 Yes *MDRO Multi-Drug Resistant Organism Allergy Unknown 05/29/16 Yes 05/31//5/173/6/6/173/7/ 06:00 18:00 06:00 18:00 06:00 18:00 Intake Total 2500 ml 3562 ml 1130 ml 730 ml 340 ml Output Total 900 ml 1750 ml 1350 ml 1150 ml 1800 ml Balance 1600 ml 1812 ml -220 ml -420 ml -1460 ml Intake Oral 1200 ml 1240 ml 630 ml 730 ml 240 ml IV Total 1300 ml 2322 ml 500 ml 100 ml Output Urine Total 900 ml 1750 ml 1350 ml 1150 ml 1800 ml # Bowel Movements 0 0 0 0 Laboratory Tests Test 05/31/16 06/01/16 05:45 03:59 White Blood Count 5.7 TH/MM3 8.7 TH/MM3 Red Blood Count 2.62 MIL/MM3 3.09 MIL/MM3 Hemoglobin 7.5 GM/DL 8.8 GM/DL Hematocrit 22.2 % 25.7 % Mean Corpuscular Volume 84.7 FL 83.3 FL Mean Corpuscular Hemoglobin 28.6 PG 28.5 PG Mean Corpuscular Hemoglobin 33.8 % 34.2 % Concent Red Cell Distribution Width 15.2 % 15.3 % Platelet Count 158 TH/MM3 170 TH/MM3 Mean Platelet Volume 8.6 FL 9.1 FL Sodium Level 142 MEQ/L 142 MEQ/L Potassium Level 4.3 MEQ/L 4.3 MEQ/L Chloride Level 112 MEQ/L 110 MEQ/L Carbon Dioxide Level 25.5 MEQ/L 24.4 MEQ/L Anion Gap 5 MEQ/L 8 MEQ/L Blood Urea Nitrogen 32 MG/DL 28 MG/DL Creatinine 1.83 MG/DL 1.51 MG/DL Estimat Glomerular Filtration 38 ML/MIN 48 ML/MIN Rate Random Glucose 101 MG/DL 89 MG/DL Calcium Level 7.8 MG/DL 8.0 MG/DL Hematology Comments Procedure Category Date Status Time Diet Heart Healthy DIET 05/30/16 Transmitted Dinner Resp Oxygen Travis C RSP 05/30/16 Logged Titrat 1-4 L 09:15 Basic Metabolic Panel LAB 06/01/16 Complete (Bmp) 06:00 Cbc No Diff, Includes LAB 06/01/16 Complete Plts 06:00 Hydralazine Inj MED 05/31/16 Complete (Apresoline Inj) 17:06 Hydralazine Inj MED 05/31/16 In Process (Apresoline Inj) 17:15 Oxycodone (Roxicodone) MED 06/01/16 In Process 07:45 ^ Other Nursing Orders DAVIS 06/01/16 In Process 07:47 Tunnel Kiln Firer / DAVIS 06/01/16 Complete Telemetry 07:47 Patient Transfer ADMITTING 06/01/16 Transmitted Oxycodone (Roxicodone) MED 06/01/16 In Process 10:00 Mrsa Screen LORIN 06/01/16 In Process 11:37 Vital Signs Date Time Temp Pulse Resp B/P Pulse Ox O2 Delivery O2 Flow Rate FiO2 06/02/16 09:28 98 21 06/02/16 09:00 58 06/02/16 08:00 60 06/02/16 07:49 97 Room Air 06/02/16 07:23 68 17 177/88 97 06/02/16 07:00 63 06/02/16 06:00 54 06/02/16 05:00 60 06/02/16 04:00 60 06/02/16 03:00 98 Room Air 06/02/16 03:00 98.1 60 16 163/84 98 06/02/16 03:00 60 06/02/16 02:00 61 06/02/16 01:45 156/80 06/02/16 01:00 61 06/02/16 01:00 172/92 06/02/16 00:00 70 06/01/16 23:00 76 06/01/16 23:00 98.5 81 16 168/85 97 06/01/16 23:00 97 Room Air 06/01/16 22:19 197/102 06/01/16 22:00 80 06/01/16 21:00 68 06/01/16 20:30 99.5 70 16 174/90 98 06/01/16 20:30 98 Room Air 06/01/16 20:00 66 06/01/16 19:06 97 Nasal Cannula 2.00 06/01/16 19:00 64 06/01/16 18:14 182/92 06/01/16 18:01 18 06/01/16 18:00 196/104 06/01/16 15:00 Room Air 06/01/16 15:00 98.4 57 18 170/82 98 06/01/16 15:00 57 06/01/16 11:00 55 06/01/16 11:00 96 Room Air 06/01/16 11:00 98.6 55 18 143/84 96 06/01/16 07:22 96 21 06/01/16 07:00 98.4 69 16 163/76 97 06/01/16 07:00 97 Room Air 06/01/16 07:00 69 06/01/16 06:00 20 06/01/16 03:00 66 06/01/16 03:00 95 Room Air 06/01/16 03:00 98.3 66 18 180/93 95 05/31/16 23:00 98.3 63 18 175/90 98 05/31/16 23:00 63 05/31/16 22:00 18 05/31/16 21:30 20 05/31/16 21:10 18 05/31/16 19:59 95 21 05/31/16 19:00 99 Room Air 05/31/16 19:00 57 05/31/16 19:00 98.3 54 18 160/81 99 05/31/16 16:00 66 05/31/16 15:15 98.3 54 18 167/94 97 05/31/16 14:00 18 05/31/16 11:25 97.4 72 18 158/74 95 05/31/16 11:25 95 Room Air 05/31/16 11:00 60 05/31/16 08:34 18 05/31/16 07:32 97 Nasal Cannula 2.00 05/31/16 07:00 60 05/31/16 07:00 98 Nasal Cannula 1.00 05/31/16 07:00 97.4 72 18 171/83 98 05/31/16 05:28 16 05/31/16 04:00 98.2 52 16 155/80 94 05/31/16 03:30 50 05/30/16 23:50 51 05/30/16 23:00 99.0 51 16 150/85 96 05/30/16 22:00 16 05/30/16 20:00 99.4 61 16 151/86 97 Arterial Line 05/30/16 19:55 96 Nasal Cannula 2.00 05/30/16 19:08 68 05/30/16 15:00 61 05/30/16 15:00 99.7 61 20 153/90 97 05/30/16 14:00 16 05/30/16 11:10 21 05/30/16 11:00 53 05/30/16 11:00 98.7 53 20 129/80 95 Date/Time Procedure Status Source Growth 06/01/16 10:35 MRSA Surveillance Culture Received Other Pending Assessment and Plan Assessment: (1) Pseudoaneurysm of brachial artery Status: Acute (2) Abscess Status: Acute Plan 1.Continue hand exercises 2. Daily dry dressing 3. OOB today Discharge Planning Potentially tomorrow AM Karime Ruiz Jun 02, 2016 10:13
[2016-06-02] MEDS ORDERED: DILTIAZEM HCL 60 MG TAB PO SCH (18:00)
[2016-06-02] MEDS: ATORVASTATIN 40 MG TAB PO SCH (20:18)
[2016-06-03] VITALS (16 sets, daily range): BP systolic 161–179; BP diastolic 83–99; PULSE 52–93; RESP 16–18; TEMP 97.2–98.1; O2SAT 98–100
[2016-06-03] MEDS: MORPHINE SULFATE 4 MG/ML INJ IV PRN ×3 (01:11→07:52)
[2016-06-03] MEDS: hydrALAZINE HCL 20 MG/ML VIAL IV PRN ×2 (05:16→07:52)
[2016-06-03] MEDS: HEPARIN SODIUM - SQ 10,000 UNITS/ML VIAL SQ SCH (06:46)
[2016-06-03] MEDS: ceFAZolin 1,000 MG/NS 100 ML IV SCH ×2 (06:46)
[2016-06-03] MEDS: DOCUSATE SODIUM 100 MG CAP PO SCH (07:52)
[2016-06-03] MEDS: SODIUM CHLORIDE 0.9% FLUSH 5 ML FLUSH IVF PRN (07:53)
[2016-06-03] MEDS: PANTOPRAZOLE SOD 40 MG DELAYED RELEASE TAB PO SCH (07:53)
[2016-06-03] MEDS: METOPROLOL TARTRATE 50 MG TAB PO SCH (07:53)
[2016-06-03] MEDS: ASPIRIN 325 MG TAB PO SCH (07:53)
--- NOTE | 2016-06-03 10:36 | PD.VS.PN ---
Subjective POD #: 5 Procedure(s): R brachial artery bypass with rR GSV Subjective/Hospital Course Arm better, hand ok. Pain controlled Objective Vitals/I&O Date Time Temp Pulse Resp B/P Pulse Ox O2 Delivery O2 Flow Rate FiO2 06/03/16 10:00 52 06/03/16 09:50 99 21 06/03/16 09:00 55 06/03/16 08:25 17 06/03/16 08:00 76 06/03/16 07:30 97.2 85 18 161/87 99 06/03/16 07:30 Room Air 06/03/16 07:00 92 06/03/16 06:00 84 06/03/16 05:45 170/84 06/03/16 05:00 84 06/03/16 05:00 179/83 06/03/16 04:00 84 06/03/16 03:00 89 06/03/16 03:00 98.1 93 16 174/94 98 06/03/16 03:00 98 Room Air 06/03/16 02:00 83 06/03/16 01:00 89 06/03/16 00:00 86 06/02/16 23:00 97 Room Air 06/02/16 23:00 90 06/02/16 23:00 98.7 81 16 175/85 97 06/02/16 22:00 74 06/02/16 21:20 176/91 06/02/16 21:00 74 06/02/16 21:00 21 06/02/16 20:45 190/93 06/02/16 20:00 99 Room Air 06/02/16 20:00 66 06/02/16 20:00 98.3 71 16 242/103 99 06/02/16 19:00 70 06/02/16 18:09 17 06/02/16 18:00 61 06/02/16 17:00 62 06/02/16 16:06 59 06/02/16 15:34 180/83 06/02/16 15:11 98.1 59 17 182/84 98 06/02/16 15:00 98 Room Air 06/02/16 15:00 60 06/02/16 14:00 59 06/02/16 13:00 58 06/02/16 12:00 52 06/02/16 11:00 98.2 54 17 160/78 98 3/7/17 11:00 54 06/02/16 11:00 98 Room Air 06/03/16 06/03/16 06/03/16 07:00 15:00 23:00 Intake Total 580 ml Output Total 875 ml Balance -295 ml Exam: R UE incision with serous drainage but intact Pulses: palpable radial artery Laboratory Date/Time Procedure Status Source Growth 06/01/16 10:35 MRSA Surveillance Culture - Final Complete Other NO MRSA ISOLATED Assessment and Plan Assessment: (1) Pseudoaneurysm of brachial artery Status: Acute (2) Abscess Status: Acute Plan 1.D/C today 2. Finish 7d total of antibiotics (stop 06/05) 3. RTC Thursday 06/08 Discharge Planning today Ismael Martino MD Jun 03, 2016 10:35
[2016-06-03] MEDS ORDERED: BACT800T5 PO (12:23)
--- NOTE | 2016-06-03 12:34 | PD.VS.DC ---
Discharge Summary Admission Date: May 29, 2016 at 12:35 Discharge Date: Jun 03, 2016 Admission Diagnosis: (1) Abscess (2) Pseudoaneurysm of brachial artery Discharge Diagnosis: (1) Pseudoaneurysm of brachial artery Status: Resolved (2) Abscess Status: Acute Brief History from admission 61 yo male with h/o "boil" R UE, lanced in ED, Pt c/o increased swelling and presented to the ED, Pt started bleeding and clinically has clear pseudoaneurysm. No hand trouble. 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 Procedure(s): R brachial artery bypass with rR GSV Significant Findings GENERAL: A&OX3, GCS 15, NAD SKIN: Warm and dry. Incision to right arm intact, sutures intact, No redness, minimal arm swelling noted- improved since yesterday's assessment, denies pain NECK: Supple CARDIOVASCULAR: + S1, S2, RRR RESPIRATORY: Breath sounds equal bilaterally. No accessory muscle use. Palpable bilat strong Radial pulses noted Allergies Coded Allergies Type Severity Reaction Last Updated Verified Simvastatin Allergy Severe Joint Pain 05/29/16 Yes *MDRO Multi-Drug Resistant Organism Allergy Unknown 05/29/16 Yes 06/01//6/173/7/173/7/173/8/173/11/12 06:00 18:00 06:00 18:00 06:00 18:00 Intake Total 1130 ml 730 ml 340 ml 1380 ml Output Total 1350 ml 1150 ml 1800 ml 2025 ml Balance -220 ml -420 ml -1460 ml -645 ml Intake Oral 630 ml 730 ml 240 ml 1280 ml IV Total 500 ml 100 ml 100 ml Output Urine Total 1350 ml 1150 ml 1800 ml 2025 ml # Bowel Movements 0 0 0 Laboratory Tests Test 06/01/16 03:59 White Blood Count 8.7 TH/MM3 Red Blood Count 3.09 MIL/MM3 Hemoglobin 8.8 GM/DL Hematocrit 25.7 % Mean Corpuscular Volume 83.3 FL Mean Corpuscular Hemoglobin 28.5 PG Mean Corpuscular Hemoglobin 34.2 % Concent Red Cell Distribution Width 15.3 % Platelet Count 170 TH/MM3 Mean Platelet Volume 9.1 FL Hematology Comments Sodium Level 142 MEQ/L Potassium Level 4.3 MEQ/L Chloride Level 110 MEQ/L Carbon Dioxide Level 24.4 MEQ/L Anion Gap 8 MEQ/L Blood Urea Nitrogen 28 MG/DL Creatinine 1.51 MG/DL Estimat Glomerular Filtration 48 ML/MIN Rate Random Glucose 89 MG/DL Calcium Level 8.0 MG/DL Procedure Category Date Status Time Hydralazine Inj MED 05/31/16 Complete (Apresoline Inj) 17:06 Hydralazine Inj MED 05/31/16 In Process (Apresoline Inj) 17:15 Oxycodone (Roxicodone) MED 06/01/16 In Process 07:45 ^ Other Nursing Orders DAVIS 06/01/16 In Process 07:47 Call Or Contact Centre Coach / DAVIS 06/01/16 Complete Telemetry 07:47 Patient Transfer ADMITTING 06/01/16 Transmitted Oxycodone (Roxicodone) MED 06/01/16 In Process 10:00 Mrsa Screen LORIN 06/01/16 Complete 11:37 ^ Other Nursing Orders [facility] 06/02/16 In Process 10:24 Eveline Tavarez Disp Lrg SPD 06/02/16 Transmitted 10:24 Pt Activity PT 06/02/16 Logged 10:24 ^ Sling [facility] 06/02/16 In Process 10:24 Vascular Access Team [facility] 06/02/16 In Process Consult 11:04 Vascular Poc IMGUS 06/02/16 Taken Ultrasound Propofol 200 Mg/20 Ml MED 05/29/16 Complete Inj (Diprivan 200 12:00 Ephedrine/Ns 25 Mg/5 MED 05/29/16 Complete Ml Syr (Ephedrine/N 12:00 Phenyleph/Ns 1000 MED 05/29/16 Complete Mcg/10ml Syr (Neosynep 12:00 Normosol R Inj MED 05/29/16 Complete (Normosol R Inj) 12:00 Diltiazem (Cardizem) MED 06/02/16 Complete 18:00 Attending Discharge DISCHARGE 06/03/16 Transmitted Order Vital Signs Date Time Temp Pulse Resp B/P Pulse Ox O2 Delivery O2 Flow Rate FiO2 06/03/16 11:29 97.9 64 18 179/99 100 06/03/16 11:09 Room Air 06/03/16 11:00 65 06/03/16 10:00 52 06/03/16 09:50 99 21 06/03/16 09:00 55 06/03/16 08:25 17 06/03/16 08:00 76 06/03/16 07:30 97.2 85 18 161/87 99 06/03/16 07:30 Room Air 06/03/16 07:00 92 06/03/16 06:00 84 06/03/16 05:45 170/84 06/03/16 05:00 84 06/03/16 05:00 179/83 06/03/16 04:00 84 06/03/16 03:00 89 06/03/16 03:00 98.1 93 16 174/94 98 06/03/16 03:00 98 Room Air 06/03/16 02:00 83 06/03/16 01:00 89 06/03/16 00:00 86 06/02/16 23:00 97 Room Air 06/02/16 23:00 90 06/02/16 23:00 98.7 81 16 175/85 97 06/02/16 22:00 74 06/02/16 21:20 176/91 06/02/16 21:00 74 06/02/16 21:00 21 06/02/16 20:45 190/93 06/02/16 20:00 99 Room Air 06/02/16 20:00 66 06/02/16 20:00 98.3 71 16 242/103 99 06/02/16 19:00 70 06/02/16 18:09 17 06/02/16 18:00 61 06/02/16 17:00 62 06/02/16 16:06 59 06/02/16 15:34 180/83 06/02/16 15:11 98.1 59 17 182/84 98 06/02/16 15:00 98 Room Air 06/02/16 15:00 60 06/02/16 14:00 59 06/02/16 13:00 58 06/02/16 12:00 52 06/02/16 11:00 98.2 54 17 160/78 98 06/02/16 11:00 54 06/02/16 11:00 98 Room Air 06/02/16 10:00 55 06/02/16 09:28 98 21 06/02/16 09:00 58 06/02/16 08:00 60 06/02/16 07:49 97 Room Air 06/02/16 07:23 68 17 177/88 97 06/02/16 07:00 63 06/02/16 06:00 54 06/02/16 05:00 60 06/02/16 04:00 60 06/02/16 03:00 98 Room Air 06/02/16 03:00 98.1 60 16 163/84 98 06/02/16 03:00 60 06/02/16 02:00 61 06/02/16 01:45 156/80 06/02/16 01:00 61 06/02/16 01:00 172/92 06/02/16 00:00 70 06/01/16 23:00 76 06/01/16 23:00 98.5 81 16 168/85 97 06/01/16 23:00 97 Room Air 06/01/16 22:19 197/102 06/01/16 22:00 80 06/01/16 21:00 68 06/01/16 20:30 99.5 70 16 174/90 98 06/01/16 20:30 98 Room Air 06/01/16 20:00 66 06/01/16 19:06 97 Nasal Cannula 2.00 06/01/16 19:00 64 06/01/16 18:14 182/92 06/01/16 18:00 196/104 06/01/16 15:00 Room Air 06/01/16 15:00 98.4 57 18 170/82 98 06/01/16 15:00 57 06/01/16 11:00 55 06/01/16 11:00 96 Room Air 06/01/16 11:00 98.6 55 18 143/84 96 06/01/16 07:22 96 21 06/01/16 07:00 98.4 69 16 163/76 97 06/01/16 07:00 97 Room Air 06/01/16 07:00 69 06/01/16 06:00 20 06/01/16 03:00 66 06/01/16 03:00 95 Room Air 06/01/16 03:00 98.3 66 18 180/93 95 05/31/16 23:00 98.3 63 18 175/90 98 05/31/16 23:00 63 05/31/16 22:00 18 05/31/16 21:10 18 05/31/16 19:59 95 21 05/31/16 19:00 99 Room Air 05/31/16 19:00 57 05/31/16 19:00 98.3 54 18 160/81 99 05/31/16 16:00 66 05/31/16 15:15 98.3 54 18 167/94 97 05/31/16 14:00 18 Laboratory Tests Test 06/01/16 03:59 Red Blood Count 3.09 MIL/MM3 (4.50-5.90) Hemoglobin 8.8 GM/DL (13.0-17.0) Hematocrit 25.7 % (39.0-51.0) Chloride Level 110 MEQ/L (98-107) Blood Urea Nitrogen 28 MG/DL (7-18) Creatinine 1.51 MG/DL (0.60-1.30) Estimat Glomerular Filtration 48 ML/MIN (>89) Rate Calcium Level 8.0 MG/DL (8.5-10.1) Hospital Course: 61 yo male with h/o "boil" R UE, lanced in ED, Pt c/o increased swelling and presented to the ED, Pt started bleeding and clinically has clear pseudoaneurysm. No hand trouble. 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 Pt procedure- R brachial artery bypass with rR GSV- done on 06/12 pt has done well post-op with right arm feeling better with a minimal and improved R arm swelling noted, hand ok-Pain controlled, pt will RTC on Wednesday for follow-up. Allergies Coded Allergies Type Severity Reaction Last Updated Verified Simvastatin Allergy Severe Joint Pain 05/29/16 Yes *MDRO Multi-Drug Resistant Organism Allergy Unknown 05/29/16 Yes 06/01//6/173/7/// 06:00 18:00 06:00 18:00 06:00 18:00 Intake Total 1130 ml 730 ml 340 ml 1380 ml Output Total 1350 ml 1150 ml 1800 ml 2025 ml Balance -220 ml -420 ml -1460 ml -645 ml Intake Oral 630 ml 730 ml 240 ml 1280 ml IV Total 500 ml 100 ml 100 ml Output Urine Total 1350 ml 1150 ml 1800 ml 2025 ml # Bowel Movements 0 0 0 Laboratory Tests Test 06/01/16 03:59 White Blood Count 8.7 TH/MM3 Red Blood Count 3.09 MIL/MM3 Hemoglobin 8.8 GM/DL Hematocrit 25.7 % Mean Corpuscular Volume 83.3 FL Mean Corpuscular Hemoglobin 28.5 PG Mean Corpuscular Hemoglobin 34.2 % Concent Red Cell Distribution Width 15.3 % Platelet Count 170 TH/MM3 Mean Platelet Volume 9.1 FL Hematology Comments Sodium Level 142 MEQ/L Potassium Level 4.3 MEQ/L Chloride Level 110 MEQ/L Carbon Dioxide Level 24.4 MEQ/L Anion Gap 8 MEQ/L Blood Urea Nitrogen 28 MG/DL Creatinine 1.51 MG/DL Estimat Glomerular Filtration 48 ML/MIN Rate Random Glucose 89 MG/DL Calcium Level 8.0 MG/DL Procedure Category Date Status Time Hydralazine Inj MED 05/31/16 Complete (Apresoline Inj) 17:06 Hydralazine Inj MED 05/31/16 In Process (Apresoline Inj) 17:15 Oxycodone (Roxicodone) MED 06/01/16 In Process 07:45 ^ Other Nursing Orders DAVIS 06/01/16 In Process 07:47 Call Or Contact Centre Coach / DAVIS 06/01/16 Complete Telemetry 07:47 Patient Transfer ADMITTING 06/01/16 Transmitted Oxycodone (Roxicodone) MED 06/01/16 In Process 10:00 Mrsa Screen LORIN 06/01/16 Complete 11:37 ^ Other Nursing Orders [facility] 06/02/16 In Process 10:24 Eveline Tavarez Disp Lrg SPD 06/02/16 Transmitted 10:24 Pt Activity PT 06/02/16 Logged 10:24 ^ Sling [facility]IS 06/02/16 In Process 10:24 Vascular Access Team [facility]IS 06/02/16 In Process Consult 11:04 Vascular Poc IMGUS 06/02/16 Taken Ultrasound Propofol 200 Mg/20 Ml MED 05/29/16 Complete Inj (Diprivan 200 12:00 Ephedrine/Ns 25 Mg/5 MED 05/29/16 Complete Ml Syr (Ephedrine/N 12:00 Phenyleph/Ns 1000 MED 05/29/16 Complete Mcg/10ml Syr (Neosynep 12:00 Normosol R Inj MED 05/29/16 Complete (Normosol R Inj) 12:00 Diltiazem (Cardizem) MED 06/02/16 Complete 18:00 Attending Discharge DISCHARGE 06/03/16 Transmitted Order Vital Signs Date Time Temp Pulse Resp B/P Pulse Ox O2 Delivery O2 Flow Rate FiO2 06/03/16 11:29 97.9 64 18 179/99 100 06/03/16 11:09 Room Air 06/03/16 11:00 65 06/03/16 10:00 52 06/03/16 09:50 99 21 06/03/16 09:00 55 06/03/16 08:25 17 06/03/16 08:00 76 06/03/16 07:30 97.2 85 18 161/87 99 06/03/16 07:30 Room Air 06/03/16 07:00 92 06/03/16 06:00 84 06/03/16 05:45 170/84 06/03/16 05:00 84 06/03/16 05:00 179/83 06/03/16 04:00 84 06/03/16 03:00 89 06/03/16 03:00 98.1 93 16 174/94 98 06/03/16 03:00 98 Room Air 06/03/16 02:00 83 06/03/16 01:00 89 06/03/16 00:00 86 06/02/16 23:00 97 Room Air 06/02/16 23:00 90 06/02/16 23:00 98.7 81 16 175/85 97 06/02/16 22:00 74 06/02/16 21:20 176/91 06/02/16 21:00 74 06/02/16 21:00 21 06/02/16 20:45 190/93 06/02/16 20:00 99 Room Air 06/02/16 20:00 66 06/02/16 20:00 98.3 71 16 242/103 99 06/02/16 19:00 70 06/02/16 18:09 17 06/02/16 18:00 61 06/02/16 17:00 62 06/02/16 16:06 59 06/02/16 15:34 180/83 06/02/16 15:11 98.1 59 17 182/84 98 06/02/16 15:00 98 Room Air 06/02/16 15:00 60 06/02/16 14:00 59 06/02/16 13:00 58 06/02/16 12:00 52 06/02/16 11:00 98.2 54 17 160/78 98 06/02/16 11:00 54 06/02/16 11:00 98 Room Air 06/02/16 10:00 55 06/02/16 09:28 98 21 06/02/16 09:00 58 06/02/16 08:00 60 06/02/16 07:49 97 Room Air 06/02/16 07:23 68 17 177/88 97 06/02/16 07:00 63 06/02/16 06:00 54 06/02/16 05:00 60 06/02/16 04:00 60 06/02/16 03:00 98 Room Air 06/02/16 03:00 98.1 60 16 163/84 98 06/02/16 03:00 60 06/02/16 02:00 61 06/02/16 01:45 156/80 06/02/16 01:00 61 06/02/16 01:00 172/92 06/02/16 00:00 70 06/01/16 23:00 76 06/01/16 23:00 98.5 81 16 168/85 97 06/01/16 23:00 97 Room Air 06/01/16 22:19 197/102 06/01/16 22:00 80 06/01/16 21:00 68 06/01/16 20:30 99.5 70 16 174/90 98 06/01/16 20:30 98 Room Air 06/01/16 20:00 66 06/01/16 19:06 97 Nasal Cannula 2.00 06/01/16 19:00 64 06/01/16 18:14 182/92 06/01/16 18:00 196/104 06/01/16 15:00 Room Air 06/01/16 15:00 98.4 57 18 170/82 98 06/01/16 15:00 57 06/01/16 11:00 55 06/01/16 11:00 96 Room Air 06/01/16 11:00 98.6 55 18 143/84 96 06/01/16 07:22 96 21 06/01/16 07:00 98.4 69 16 163/76 97 06/01/16 07:00 97 Room Air 06/01/16 07:00 69 06/01/16 06:00 20 06/01/16 03:00 66 06/01/16 03:00 95 Room Air 06/01/16 03:00 98.3 66 18 180/93 95 05/31/16 23:00 98.3 63 18 175/90 98 05/31/16 23:00 63 05/31/16 22:00 18 05/31/16 21:10 18 05/31/16 19:59 95 21 05/31/16 19:00 99 Room Air 05/31/16 19:00 57 05/31/16 19:00 98.3 54 18 160/81 99 05/31/16 16:00 66 05/31/16 15:15 98.3 54 18 167/94 97 05/31/16 14:00 18 Discharge Condition: Good Discharge Disposition: Discharge Home Discharge Instructions: Follow-up in OPC on Wednesday06/08/16 at 1100 Keep dressing dry and intact, change dressing daily or as needed if soiled Call the office with any questions or concerns Karime VILLEGAS [facility] [phone] Any questions or concerns: Call [facility] at [facility] [phone] Karime Ruiz Jun 03, 2016 12:34
== END 2016-06-03 13:00 | disposition home or self-care (01) | DRG 908 ==
LOC: NEPI 12:07 → NEDA 12:35 → HCVR 16:17 → HCIN 06-01 13:40
PROVIDERS: ADMIT Surgery; ATTEND Surgery
PROC: 03B70ZZ Excision of Right Brachial Artery, Open Approach (ICD-10-PCS; principal; 2016-05-29 12:57)
DX: T81.89XA Other complications of procedures, not elsewhere classified, initial encounter (principal); L02.413 Cutaneous abscess of right upper limb; I72.1 Aneurysm of artery of upper extremity; I10 Essential (primary) hypertension; Y83.8 Other surgical procedures as the cause of abnormal reaction of the patient, or of later complication, without mention of misadventure at the time of the procedure; F41.9 Anxiety disorder, unspecified; F17.210 Nicotine dependence, cigarettes, uncomplicated; B95.61 Methicillin susceptible Staphylococcus aureus infection as the cause of diseases classified elsewhere
CPT/HCPCS: 10061; 76937; 80048; 84155; 85025; 85027; 85610; 85730; 86403; 86850; 86900; 86901; 87070; 87081; 87186; 87641; 93931; 96372; 99291; J0360; J0690; J1170; J1644; J1885; J2250; J2270; J2370; J2405; J3010; J7030

== ENCOUNTER 2016-06-10 08:57 | Emergency (ER) | payer MEDICARE, OTHER ==
[~2016-06-10] VITALS: Ht 175.3 cm; Wt 70.0 kg
[~2016-06-10 08:57] MED LIST changes: +BACT800T5 PO; -CLIN1CAP5 PO; -NORMOSOL R INJ 2,000 ML IV ONE; -PHENYLEPH/NS 1000 MCG/10 ML SYR IV ONE; -PROPOFOL 200 MG/20 ML AMP IV ONE; -ePHEDrine/NS 25 MG/5 ML SYR IV ONE
[2016-06-10 09:19] VITALS: BP 231/102; PULSE 85; RESP 18; TEMP 98.4; O2SAT 99
[2016-06-10] MEDS ORDERED: CLINDAMYCIN INJ 600 MG in SODIUM CHLORIDE 0.9% INJ 100 ML IV ONE (09:30)
--- NOTE | 2016-06-10 09:48 | PD ---
HPI Chief Complaint: Edema Time Seen by Provider: 09:07 Travel History International Travel<30 days: No Contact w/Intl Traveler<30days: No Traveled to known affect area: No History of Present Illness HPI The patient is a 61-year-old male who presents to the emergency department for right upper extremity pain and swelling. The patient has a history of recent abscess status post incision and drainage, accompanied the next day by pseudoaneurysm that bled. The patient was seen in the emergency department and went to the operating room with Dr. Martino, and underwent a right brachial artery bypass with radial to radial grafting. The patient was placed on antibiotics, was in the hospital for several days, and assisted going home because he had [id number] to take care of. The patient states he has been at home, doing well, to yesterday when he started having increasing swelling to the right arm and right hand. He now notes numbness over the fifth , fourth, third digit of the right hand. He also notes swelling over the extensor surface of the right hand that extends into the forearm. He does complain of mild pain over the medial aspect of the surgical incision, but denies any significant drainage from the affected area. However, he is not changed bandages since going home. He has been taking antibiotics, Septra. The patient states he missed his follow-up appointment with his vascular surgeon several days ago. PFSH Past Medical History Arthritis: Yes Asthma: No Blood Disorders: No Anxiety: Yes Depression: No Heart Rhythm Problems: No Cancer: Yes Cardiovascular Problems: Yes Chemotherapy: Yes Chest Pain: Yes Congestive Heart Failure: No COPD: No Cerebrovascular Accident: Yes Coronary Artery Disease: Yes Diabetes: No Diminished Hearing: No Endocrine: No Gastrointestinal Disorders: Yes GERD: No Genitourinary: No Headaches: No Hepatitis: Yes (HEP C) Hiatal Hernia: No Hypertension: Yes Immune Disorder: Yes (HEP C) Kidney Stones: No Musculoskeletal: Yes Neurologic: Yes Psychiatric: Yes Respiratory: Yes Migraines: No Myocardial Infarction: Yes (2007) Radiation Therapy: Yes Renal Failure: No Seizures: No Sleep Apnea: Yes Ulcer: Yes Past Surgical History Abdominal Surgery: No AICD: No Appendectomy: No Arteriovenous Shunt: No Cardiac Surgery: No Cholecystectomy: No Ear Surgery: No Endocrine Surgery: No Eye Surgery: Yes Genitourinary Surgery: No Gynecologic Surgery: No Insulin Pump: No Joint Replacement: Yes (L SHOULDER) Neurologic Surgery: No Oral Surgery: Yes Pacemaker: No Thoracic Surgery: No Other Surgery: Yes (PLASTIC SURGERY TO HEAD AND FACE ,) Social History Alcohol Use: No Tobacco Use: Yes (1 ppd) Substance Use: No Allergies-Medications (Allergen,Severity, Reaction): Coded Allergies: Simvastatin (Verified Allergy, Severe, Joint Pain, 06/10/16) COULD NOT TOLERATE STATINS *MDRO Multi-Drug Resistant Organism (Verified Allergy, Unknown, 06/10/16) MRSA Reported Meds & Prescriptions Reported Meds & Active Scripts Active Bactrim DS (Sulfamethoxazole-Trimethoprim) 800-160 Mg Tab 1 Tab PO BID 10 Days Ibuprofen 800 Mg Tab 800 Mg PO Q8H PRN Clindamycin (Clindamycin HCl) 150 Mg Cap 300 Mg PO Q6H 10 Days Reported Dilaudid 8 mg (Hydromorphone HCl) 8 Mg Tab 8 Mg PO Q6H PRN Cozaar (Losartan Potassium) 25 Mg Tab 25 Mg PO DAILY Aspir-81 (Aspirin) 81 Mg Tab 162 Mg PO DAILY Metoprolol Tartrate 100 Mg Tab 100 Mg PO BID Review of Systems Except as stated in HPI: all other systems reviewed are Neg General / Constitutional: Positive: Fever (subjective fever last night) Cardiovascular: No: Chest Pain or Discomfort Respiratory: No: Shortness of Breath Gastrointestinal: No: Nausea, Vomiting Musculoskeletal: Positive: Edema, Pain Skin: Positive Other (as noted in history of present illness) Neurologic: Positive: Paresthesia, Sensory Disturbance Physical Exam Narrative GENERAL: Awake, alert, pleasant 61-year-old male who appears his stated age and is in no acute respiratory distress. SKIN: Warm and dry. HEAD: Atraumatic. Normocephalic. EYES: No injection or drainage. ENT: No nasal bleeding or discharge. Mucous membranes pink and moist. NECK: Trachea midline. No JVD. CARDIOVASCULAR: Regular rate and rhythm. No murmur appreciated. RESPIRATORY: No accessory muscle use. Clear to auscultation. Breath sounds equal bilaterally. GASTROINTESTINAL: Abdomen soft, non-tender, nondistended. Hepatic and splenic margins not palpable. MUSCULOSKELETAL: The right upper extremity does have an incision medial aspect of the right arm with sutures in place. There is a slight open area measuring 3 cm x 1.5 cm with a slight foul smell. There is edema the forearm and hand. Positive right radial pulse. Slightly diminished capillary refill. Intrinsic hand muscles are intact, no weakness noted of intrinsic hand muscles. NEUROLOGICAL: Awake and alert. No obvious cranial nerve deficits. Motor grossly within normal limits. Normal speech. Sensation is decreased to soft touch over the ulnar distribution of the right hand, intact to the median and radial distribution. PSYCHIATRIC: Appropriate mood and affect; insight and judgment normal. Data Data Last Documented VS Vital Signs Date Time Temp Pulse Resp B/P Pulse Ox O2 Delivery O2 Flow Rate FiO2 06/10/16 09:23 76 18 99 Room Air 06/10/16 09:19 98.4 231/102 Orders Complete Blood Count With Diff (06/10/16 09:23) Comprehensive Metabolic Panel (06/10/16 09:23) Blood Culture (06/10/16 09:23) Lactic Acid (06/10/16 09:23) Us Arm Venous Doppler (06/10/16 ) Clindamycin Inj (Cleocin Inj) (06/10/16 09:30) Morphine Inj (Morphine Inj) (06/10/16 10:15) Ondansetron Inj (Zofran Inj) (06/10/16 10:15) Labs Laboratory Tests Test 06/10/16 09:35 White Blood Count 10.4 TH/MM3 Red Blood Count 3.32 MIL/MM3 Hemoglobin 9.5 GM/DL Hematocrit 28.6 % Mean Corpuscular Volume 86.0 FL Mean Corpuscular Hemoglobin 28.6 PG Mean Corpuscular Hemoglobin 33.3 % Concent Red Cell Distribution Width 16.4 % Platelet Count 402 TH/MM3 Mean Platelet Volume 7.5 FL Neutrophils (%) (Auto) 77.6 % Lymphocytes (%) (Auto) 11.8 % Monocytes (%) (Auto) 8.6 % Eosinophils (%) (Auto) 1.5 % Basophils (%) (Auto) 0.5 % Neutrophils # (Auto) 8.1 TH/MM3 Lymphocytes # (Auto) 1.2 TH/MM3 Monocytes # (Auto) 0.9 TH/MM3 Eosinophils # (Auto) 0.2 TH/MM3 Basophils # (Auto) 0.0 TH/MM3 CBC Comment DIFF FINAL Differential Comment Sodium Level 138 MEQ/L Potassium Level 4.5 MEQ/L Chloride Level 104 MEQ/L Carbon Dioxide Level 25.2 MEQ/L Anion Gap 9 MEQ/L Blood Urea Nitrogen 30 MG/DL Creatinine 2.36 MG/DL Estimat Glomerular Filtration 28 ML/MIN Rate Random Glucose 163 MG/DL Lactic Acid Level 1.0 mmol/L Calcium Level 8.9 MG/DL Total Bilirubin 0.2 MG/DL Aspartate Amino Transf 49 U/L (AST/SGOT) Alanine Aminotransferase 46 U/L (ALT/SGPT) Alkaline Phosphatase 176 U/L Total Protein 8.3 GM/DL Albumin 2.9 GM/DL [facility] Medical Decision Making Medical Screen Exam Complete: Yes Emergency Medical Condition: Yes Medical Record Reviewed: Yes Interpretation(s) Ultrasound arm negative for DVT anastomosis. Laboratory Tests Test 06/10/16 09:35 White Blood Count 10.4 TH/MM3 Red Blood Count 3.32 MIL/MM3 Hemoglobin 9.5 GM/DL Hematocrit 28.6 % Mean Corpuscular Volume 86.0 FL Mean Corpuscular Hemoglobin 28.6 PG Mean Corpuscular Hemoglobin 33.3 % Concent Red Cell Distribution Width 16.4 % Platelet Count 402 TH/MM3 Mean Platelet Volume 7.5 FL Neutrophils (%) (Auto) 77.6 % Lymphocytes (%) (Auto) 11.8 % Monocytes (%) (Auto) 8.6 % Eosinophils (%) (Auto) 1.5 % Basophils (%) (Auto) 0.5 % Neutrophils # (Auto) 8.1 TH/MM3 Lymphocytes # (Auto) 1.2 TH/MM3 Monocytes # (Auto) 0.9 TH/MM3 Eosinophils # (Auto) 0.2 TH/MM3 Basophils # (Auto) 0.0 TH/MM3 CBC Comment DIFF FINAL Differential Comment Sodium Level 138 MEQ/L Potassium Level 4.5 MEQ/L Chloride Level 104 MEQ/L Carbon Dioxide Level 25.2 MEQ/L Anion Gap 9 MEQ/L Blood Urea Nitrogen 30 MG/DL Creatinine 2.36 MG/DL Estimat Glomerular Filtration 28 ML/MIN Rate Random Glucose 163 MG/DL Lactic Acid Level 1.0 mmol/L Calcium Level 8.9 MG/DL Total Bilirubin 0.2 MG/DL Aspartate Amino Transf 49 U/L (AST/SGOT) Alanine Aminotransferase 46 U/L (ALT/SGPT) Alkaline Phosphatase 176 U/L Total Protein 8.3 GM/DL Albumin 2.9 GM/DL Differential Diagnosis Differential diagnosis includes DVT, abscess, cellulitis, postoperative infection, ulnar neuropathy. Narrative Course Ultrasound-guided IV was placed of the left upper extremity. Ultrasound was obtained of the right upper extremity to evaluate for DVT. I discussed the patient with the on-call vascular surgeon, Dr. Parekh, who states the patient is expected to have some edema of the affected area. After discussion was agreed the patient a laboratory evaluation and ultrasound, if negative for DVT, will go to the [address] [place] [address], [address], to be evaluated for vascular surgery. If ultrasound is positive for DVT, patient will be admitted. We also had a discussion regarding antibiotics, the patient will receive clindamycin assess her milligrams intravenously 1 and we will evaluate his previous cultures. The patient's creatinine is 2.38, his baseline is approximately 2. DVT ultrasound is negative. The patient will be sent to the vascular surgeon's office directly from echo pod. Procedures Procedure Narrative I placed an ultrasound-guided IV in the left upper extremity with a 20-gauge, 1.88 inch, ultrasound-guided IV using a linear probe. The IV was placed easily , there was good blood return, and the IV flowed without difficulty. The patient tolerated the procedure without any complications. Diagnosis Primary Impression: Postoperative cellulitis of surgical wound Qualified Code: T81.4XXA - Postoperative cellulitis of surgical wound, initial encounter Patient Instructions: General Instructions Additional Instructions: Go directly to Dr. Parekh's office in the [address] [place] [address], [address]. Please bring a copy of the patient's ultrasound and lab results to the vascular surgeon 's office. Med/Other Pt SpecificInfo: Prescription(s) given Scripts Hydrocodone-Acetaminophen ([place])5-325 mg Tab1 Tab PO Q6H PRN (PAIN) #20 TAB Ref 0 Prov:Jose Coats MD 06/10/16 Clindamycin (Cleocin)150 Mg [id number] Mg PO Q6H 7 Days Ref 0 Prov:Jose Coats MD 06/10/16 Disposition: 01 DISCHARGE HOME Condition: Stable Jose Coats MD Jun 10, 2016 09:48
[2016-06-10 09:57] LABS: AUTOMATED NEUTROPHIL # 8.1 TH/MM3 (1.8-7.7); BASOPHIL % 0.5 % (0.0-2.0); EOSINOPHIL # 0.2 TH/MM3 (0-0.4); EOSINOPHIL % 1.5 % (0.0-4.0); HEMATOCRIT 28.6 % (39.0-51.0); HEMO FLAGS DIFF FINAL; LYMPH % 11.8 % (9.0-44.0); LYMPHOCYTE # 1.2 TH/MM3 (1.0-4.8); MEAN CORPUSCULAR HEMOGLOBIN 28.6 PG (27.0-34.0); MEAN CORPUSCULAR HGB CONC 33.3 % (32.0-36.0); MONO % 8.6 % (0.0-8.0); NEUT % 77.6 % (16.0-70.0); PLATELET COUNT 402 TH/MM3 (150-450); RED BLOOD COUNT 3.32 MIL/MM3 (4.50-5.90); RED CELL DISTRIBUTION WIDTH 16.4 % (11.6-17.2); WHITE BLOOD COUNT 10.4 TH/MM3 (4.0-11.0)
[2016-06-10] MEDS ORDERED: ONDANSETRON HCL 4 MG/2 ML VIAL IV PUSH ONE (10:15)
[2016-06-10] MEDS ORDERED: MORPHINE SULFATE 4 MG/ML INJ IV PUSH ONE (10:15)
[2016-06-10 10:49] LABS: ALKALINE PHOSPHATASE 176 U/L (45-117); ALT (GPT) 46 U/L (12-78); ANION GAP 9 MEQ/L (5-15); AST (GOT) 49 U/L (15-37); BICARBONATE 25.2 MEQ/L (21.0-32.0); BLOOD UREA NITROGEN 30 MG/DL (7-18); CHLORIDE 104 MEQ/L (98-107); GLOMERULAR FILTRATION RATE 28 ML/MIN (>89); POTASSIUM 4.5 MEQ/L (3.5-5.1); SODIUM (NA) 138 MEQ/L (136-145); TOTAL BILIRUBIN ADULT 0.2 MG/DL (0.2-1.0)
--- NOTE | 2016-06-10 12:44 | RADRPT ---
EXAM DATE/TIME: 06/10/2016 10:37 [facility] COMPARISON: No previous studies available for comparison. INDICATIONS : Right arm edema. MEDICAL HISTORY : Pseudoaneurysm, right arm 05/29/16.Hypertension. Cardiovascular disease. Hepat itis C. Chemotherapy. CVA. CAD. SURGICAL HISTORY : Left shoulder surgery. I&D 05/28/16 right arm. Right brachial artery bypass with radial to radial grafting, 05/29/16. ENCOUNTER: Subsequent ACUITY: 1 week PAIN SCORE: 3/10 LOCATION: Right arm. FINDINGS: There is spontaneous flow documented in the brachial, basilic, cephalic, axillary, and subclavian vei ns. The vessels are compressible and augmentation response is documented. No filling defects are se en. The flow is phasic with respiration. Direction of flow in the jugular vein is caudal. CONCLUSION: Negative for DVT anastomosis. Corey Hays MD FACR on June 10, 2016 at 12:42 Board Certified Radiologist. This report was verified electronically.
[2016-06-10] MEDS ORDERED: CLIN150 PO (12:55)
[2016-06-10] MEDS ORDERED: NORC5TAB PO (12:55)
== END 2016-06-10 13:22 | disposition home or self-care (01) ==
LOC: NEPE 08:57
DX: T81.4XXA Infection following a procedure, initial encounter (principal); R20.0 Anesthesia of skin; I10 Essential (primary) hypertension; G47.30 Sleep apnea, unspecified; I25.2 Old myocardial infarction; F17.200 Nicotine dependence, unspecified, uncomplicated; Z87.39 Personal history of other diseases of the musculoskeletal system and connective tissue; Z86.79 Personal history of other diseases of the circulatory system; Z87.19 Personal history of other diseases of the digestive system; Z86.19 Personal history of other infectious and parasitic diseases; Z86.69 Personal history of other diseases of the nervous system and sense organs; Z87.09 Personal history of other diseases of the respiratory system; Z86.59 Personal history of other mental and behavioral disorders
CPT/HCPCS: 80053; 83605; 85025; 87040; 93971; 96374; 96375; 99284; J2270; J2405

== ENCOUNTER 2016-06-15 15:38 | Inpatient (IN) | payer MEDICARE, OTHER ==
[2016-06-15] VITALS (8 sets, daily range): BP systolic 158–186; BP diastolic 89–98; PULSE 62–76; RESP 18; TEMP 98–98.2; O2SAT 98
[~2016-06-15 15:38] MED LIST changes: +CLIN150 PO; +NORC5TAB PO
[2016-06-15] MEDS ORDERED: HYDROmorphone HCL 2 MG TAB PO PRN (16:45)
--- NOTE | 2016-06-15 17:05 | HHI.HP ---
History of Present Illness Chief Complaint: Mr. Beard is a pleasant 61/M patient c/o dehisced incision at the center of the incision with increased redness and swelling History of Present Illness Pt was seen in our OPC this afternoon c/o dehisced area at the center of the incision with increased redness and swelling. Pt has failed out patient antibiotic therapy and recently completed Bactrim DS and Clindamycin PO. Pt denies any chills or fevers. Pt was admitted as a direct admit to [facility] from our OPC S/P: RUE pseudoaneurysm of the brachial artery that was repaired by Dr. Martino on 05/29/16. 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 Home Medications Active Scripts Hydrocodone-Acetaminophen (Maud)5-325 mg Tab1 Tab PO Q6H PRN (PAIN) #20 TAB Ref 0 Prov:Jose Coats MD 06/10/16 Clindamycin (Cleocin)150 Mg [id number] Mg PO Q6H 7 Days Ref 0 Prov:Jose Coats MD 06/10/16 Sulfamethoxazole-Trimethoprim (Bactrim DS)800-160 Mg Tab1 Tab PO BID 10 Days Ref 0 Prov:Karime Ruiz 06/03/16 Ibuprofen 800 Mg [id number] Mg PO Q8H PRN (Pain/Inflammation) #30 TAB Prov:Guido Del Rio MD 05/28/16 Reported Medications Norvasc 5 Mg Tab5 Mg PO DAILY 09/01/14 Hydromorphone 8 mg (Dilaudid 8 mg)8 Mg Tab8 Mg PO Q6H PRN 07/04/13 Losartan Potassium (Cozaar)25 Mg Tab25 Mg PO DAILY 12/05/11 Aspirin (Aspir-81)81 Mg [id number] Mg PO DAILY 12/05/11 Metoprolol Tartrate 100 Mg [id number] Mg PO BID 12/05/11 Coded Allergies: Simvastatin (Verified Allergy, Severe, Joint Pain, 06/10/16) COULD NOT TOLERATE STATINS *MDRO Multi-Drug Resistant Organism (Verified Allergy, Unknown, 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 Martino IV antibiotics and pain management Problem Qualifiers (1) Cellulitis: Karime Ruiz Jun 15, 2016 17:05
[2016-06-15] MEDS: MORPHINE SULFATE 4 MG/ML INJ IV PRN ×2 (17:24→20:14)
[2016-06-15] MEDS: VANCOMYCIN INJ 1,000 MG in SODIUM CHLOR 0.9% 250 ML INJ 250 ML IV SCH (17:26)
[2016-06-15] MEDS: METOPROLOL TARTRATE 25 MG TAB PO SCH (20:14)
[2016-06-15] MEDS ORDERED: ATORVASTATIN 40 MG TAB PO SCH (21:00)
[2016-06-15] MEDS ORDERED: hydrALAZINE HCL 20 MG/ML VIAL IV PRN (22:00)
[2016-06-15 22:46] LABS: HEMATOCRIT 25.2 % (39.0-51.0); MEAN CELL VOLUME 85.2 FL (80.0-100.0); MEAN CORPUSCULAR HEMOGLOBIN 29.4 PG (27.0-34.0); MEAN CORPUSCULAR HGB CONC 34.5 % (32.0-36.0); PLATELET COUNT 375 TH/MM3 (150-450); RED BLOOD COUNT 2.96 MIL/MM3 (4.50-5.90); WHITE BLOOD COUNT 6.1 TH/MM3 (4.0-11.0)
[2016-06-15 22:47] LABS: REVIEW FLAG FINAL
[2016-06-15 23:02] LABS: BICARBONATE 23.9 MEQ/L (21.0-32.0); POTASSIUM 4.2 MEQ/L (3.5-5.1); VANCOMYCIN TROUGH 10.6 MCG/ML (5.0-10.0)
[2016-06-16] VITALS (18 sets, daily range): BP systolic 148–162; BP diastolic 76–93; PULSE 50–84; RESP 18–20; TEMP 97.5–98.7; O2SAT 98
[2016-06-16] MEDS ORDERED: D5-1/2 NS + KCL 20 MEQ INJ 1,000 ML IV SCH (00:01)
[2016-06-16] MEDS: MORPHINE SULFATE 4 MG/ML INJ IV PRN ×5 (00:17→22:45)
[2016-06-16] MEDS ORDERED: SODIUM CHLORID 0.9% 500 ML IV SCH (03:45)
[2016-06-16] MEDS ORDERED: LACTATED RINGER'S 1000 ML IV SCH (03:45)
[2016-06-16] MEDS ORDERED: INSULIN HUMAN REGULAR 1,000 UNITS/10 ML VIAL SQ PRN (03:45)
--- NOTE | 2016-06-16 05:26 | PD.VS.PN ---
Pre-operative Note Pre-operative diagnosis: R arm wound s/p pseudoaneurysm repair (brachial artery bypass with R GSV) Planned procedure: wound exploration, closure Interval History: pt was adm yesterday with wound separation and concern for infection. Started on IV antibitiotics and will be taken to OR urgently today. Has palpable R UE pulse Labs: Laboratory Results Test 06/15/16 22:23 White Blood Count 6.1 TH/MM3 (4.0-11.0) Red Blood Count 2.96 MIL/MM3 (4.50-5.90) Hemoglobin 8.7 GM/DL (13.0-17.0) Hematocrit 25.2 % (39.0-51.0) Mean Corpuscular Volume 85.2 FL (80.0-100.0) Mean Corpuscular Hemoglobin 29.4 PG (27.0-34.0) Mean Corpuscular Hemoglobin 34.5 % Concent (32.0-36.0) Red Cell Distribution Width 16.0 % (11.6-17.2) Platelet Count 375 TH/MM3 (150-450) Mean Platelet Volume 7.4 FL (7.0-11.0) Sodium Level 139 MEQ/L (136-145) Potassium Level 4.2 MEQ/L (3.5-5.1) Chloride Level 106 MEQ/L (98-107) Carbon Dioxide Level 23.9 MEQ/L (21.0-32.0) Anion Gap 9 MEQ/L (5-15) Blood Urea Nitrogen 36 MG/DL (7-18) Random Glucose 127 MG/DL (74-106) Calcium Level 8.4 MG/DL (8.5-10.1) Blood: T&C 2U Imaging: none needed Orders: NPO after MN on Vancomycin Post-operative destination: PACU Operative site marked: Yes Consent: Informed consent has been obtained from Kwadwo Beard. I have explained the procedure in detail and discussed the risks, benefits, and potential complications. All questions have been answered. Ismael Martino MD Jun 16, 2016 05:26
[2016-06-16] MEDS: METOPROLOL TARTRATE 25 MG TAB PO SCH (08:23)
[2016-06-16] MEDS: amLODIPine BESYLATE 5 MG TAB PO SCH (08:23)
[2016-06-16] MEDS: LOSARTAN 25 MG TAB PO SCH (08:23)
[2016-06-16] MEDS ORDERED: ASPIRIN 325 MG TAB PO SCH (09:00)
[2016-06-16] MEDS ORDERED: LACTATED RINGER'S 1000 ML INJ 1,000 ML IV ONE (12:00)
[2016-06-16] MEDS ORDERED: PROPOFOL 200 MG/20 ML AMP IV ONE (12:00)
[2016-06-16] MEDS ORDERED: PHENYLEPH/NS 1000 MCG/10 ML SYR IV ONE (12:00)
[2016-06-16] MEDS ORDERED: NEOSTIGMINE 3 MG/3 ML SYR IV ONE (12:00)
[2016-06-16] MEDS ORDERED: ONDANSETRON HCL 4 MG/2 ML VIAL IV PUSH ONE (12:00)
[2016-06-16] MEDS ORDERED: ePHEDrine/NS 25 MG/5 ML SYR IV ONE (12:00)
[2016-06-16] MEDS ORDERED: FAMOTIDINE 20 MG/2 ML VIAL ONE (14:55)
[2016-06-16] MEDS ORDERED: MIDAZOLAM HCL 2 MG/2 ML VIAL ONE (14:55)
[2016-06-16] MEDS ORDERED: fentaNYL CITRATE 250 MCG/5 ML AMP ONE (15:01)
[2016-06-16] MEDS ORDERED: MORPHINE SULFATE 4 MG/ML INJ ONE (15:06)
[2016-06-16] MEDS: VANCOMYCIN INJ 1,000 MG in SODIUM CHLOR 0.9% 250 ML INJ 250 ML IV SCH ×2 (16:23→20:00)
[2016-06-16] MEDS ORDERED: HEPARIN SODIUM - IV 10,000 UNITS/10 ML VIAL ONE (16:28)
[2016-06-16] MEDS ORDERED: PROTAMINE SULFATE 50 MG/5 ML VIAL ONE (16:46)
--- NOTE | 2016-06-16 17:24 | HHI.PR ---
Immediate Post Op Note Procedure Date: Jun 16, 2016 Pre Op Diagnosis: R brachial pseudoaneurysm, wound dehiscence Post Op Diagnosis: R brachial pseudoaneurysm, wound dehiscence Surgeon: Ismael Martino Disaster Recovery Manager(s): none Procedure: R brachial artery bypass revision rotational flap of biceps Findings: section of bypass excised and primary anastomosis Biceps muscle rotated over for coverage Complications: none apparent Specimen(s) removed: none Estimated blood loss: 100 mL Anesthesia: General Drains: None Fluids: 700 mL IVF Patient to: PACU Patient Condition: Good Implant/Devices: SEE IMPLANT LOG (if applicable) Date/Time of Procedure: SEE SURGICAL CARE RECORD Ismael Martino MD Jun 16, 2016 17:24
[2016-06-16] MEDS ORDERED: ACETAMINOPHEN/HYDROcodone 325 MG/5 MG TAB PO PRN (17:30)
[2016-06-16] MEDS ORDERED: IBUPROFEN 800 MG TAB PO PRN (17:30)
[2016-06-16] MEDS ORDERED: DO NOT ADM ANY ANTICOAGULANT DRUGS XX PRN (17:30)
[2016-06-16] MEDS ORDERED: *morphine SULFATE 8 MG/ML PERIprocedure ONLY ONE (17:41)
--- NOTE | 2016-06-16 18:29 | RADRPT ---
EXAM DATE/TIME: 06/16/2016 17:39 [place] COMPARISON: No previous studies available for comparison. INDICATIONS : Central line placement. MEDICAL HISTORY : Carcinoma, prostatic SURGICAL HISTORY : None. ENCOUNTER: Initial ACUITY: 1 day PAIN SCORE: Non-responsive. LOCATION: Bilateral chest FINDINGS: The lungs are clear without infiltrate, nodule, or mass. There is no appreciable pleural effusion fo r technique. Heart and mediastinum are unremarkable. Left IJ line is present with tip overlapping th e expected region of the SVC. No definite pneumothorax is seen for technique. CONCLUSION: No acute cardiopulmonary disease. Jose Alejandro Tran MD on June 16, 2016 at 18:26 Board Certified Radiologist. This report was verified electronically.
[2016-06-16] MEDS ORDERED: LACTATED RINGER'S 1000 ML INJ 1,000 ML IV SCH (19:00)
[2016-06-16] MEDS: HYDROmorphone HCL 4 MG TAB PO PRN (20:42)
[2016-06-16] MEDS: METOPROLOL TARTRATE 100 MG TAB PO SCH (22:06)
[2016-06-17] VITALS (28 sets, daily range): BP systolic 153–185; BP diastolic 84–96; PULSE 52–70; RESP 14–20; TEMP 97.9–98.6; O2SAT 98–100
[2016-06-17] MEDS: MORPHINE SULFATE 4 MG/ML INJ IV PRN ×4 (01:34→20:27)
[2016-06-17] MEDS: HYDROmorphone HCL 4 MG TAB PO PRN ×4 (04:44→23:48)
[2016-06-17 06:33] LABS: HEMATOCRIT 25.2 % (39.0-51.0); MEAN CELL VOLUME 83.9 FL (80.0-100.0); MEAN CORPUSCULAR HEMOGLOBIN 28.2 PG (27.0-34.0); MEAN CORPUSCULAR HGB CONC 33.7 % (32.0-36.0); PLATELET COUNT 361 TH/MM3 (150-450); RED BLOOD COUNT 3.01 MIL/MM3 (4.50-5.90); RED CELL DISTRIBUTION WIDTH 15.8 % (11.6-17.2); REVIEW FLAG FINAL; WHITE BLOOD COUNT 5.3 TH/MM3 (4.0-11.0)
[2016-06-17 06:49] LABS: BICARBONATE 25.1 MEQ/L (21.0-32.0); POTASSIUM 4.3 MEQ/L (3.5-5.1)
--- NOTE | 2016-06-17 07:01 | PD.VS.PN ---
Subjective POD #: 1 Procedure(s): R arm bypass revision and biceps rotational flap Subjective/Hospital Course c/o arm (not hand) pain. Swelling better. Hand ok Objective Vitals/I&O Date Time Temp Pulse Resp B/P Pulse Ox O2 Delivery O2 Flow Rate FiO2 06/17/16 06:00 58 06/17/16 05:00 54 06/17/16 04:49 98.0 56 14 168/88 99 06/17/16 03:00 56 06/17/16 02:00 58 06/17/16 01:49 97.9 64 18 165/84 99 06/17/16 01:00 60 06/17/16 00:00 67 06/16/16 23:00 64 06/16/16 22:00 64 06/16/16 21:00 62 06/16/16 20:00 67 06/16/16 19:43 97.5 67 20 160/90 98 06/16/16 19:00 62 06/16/16 18:43 60 06/16/16 18:00 63 12 149/86 100 Room Air 06/16/16 17:45 70 12 160/83 100 Room Air 06/16/16 17:29 97.4 63 12 140/72 100 Room Air 06/16/16 12:12 98.0 50 18 148/76 98 06/16/16 09:17 98.0 58 18 158/88 98 06/16/16 07:56 84 06/17/16 06/17/16 06/17/16 07:00 15:00 23:00 Intake Total 850 ml Output Total 1250 ml Balance -400 ml Exam: Forearm swollen; arm ok. Jig Builder strength good. Pulses: Palpable radial Incisions: serosanguinous drainage in incision Laboratory Laboratory Tests Test 06/17/16 05:45 White Blood Count 5.3 Red Blood Count 3.01 Hemoglobin 8.5 Hematocrit 25.2 Mean Corpuscular Volume 83.9 Mean Corpuscular Hemoglobin 28.2 Mean Corpuscular Hemoglobin 33.7 Concent Red Cell Distribution Width 15.8 Platelet Count 361 Mean Platelet Volume 7.3 Sodium Level 141 Potassium Level 4.3 Chloride Level 107 Carbon Dioxide Level 25.1 Anion Gap 9 Blood Urea Nitrogen 29 Creatinine 1.88 Estimat Glomerular Filtration 37 Rate Random Glucose 124 Calcium Level 8.5 Assessment and Plan Assessment: (1) Cellulitis Status: Acute (2) Pseudoaneurysm of brachial artery Status: Resolved Plan Doing well - incisional but not hand pain. Bypass patent by clinical exam Creatinine better. Hct stable. 1. PT/OT for hand 2. Compression fingers to shoulder 3. OOB ad darinel, reg diet 4. Continue vanc and check trough before 4th dose. Vanc at 1g IV q24h for renal insufficiency 5. D/C dressing tomorrow (POD#2) Problem Qualifiers (1) Cellulitis: Ismael Martino MD Jun 17, 2016 07:01
[2016-06-17] MEDS: METOPROLOL TARTRATE 100 MG TAB PO SCH ×3 (08:35→20:33)
[2016-06-17] MEDS: LOSARTAN 25 MG TAB PO SCH (08:35)
[2016-06-17] MEDS: amLODIPine BESYLATE 5 MG TAB PO SCH (08:35)
[2016-06-17] MEDS: ASPIRIN 81 MG CHEW TAB PO SCH (08:36)
--- NOTE | 2016-06-17 11:05 | EKG ---
Date Performed: 06/16/2016 Time Performed: 14:14:32 PTAGE: 61 years EKG: SINUS BRADYCARDIA BORDERLINE LEFT AXIS DEVIATION RIGHT BUNDLE BRANCH BLOCK ABNORMAL ECG PREVIOUS TRACING : 12/02/2011 20.48 DOCTOR: Angel Murillo Interpretating Date/Time 06/17/2016 11:04:54
[2016-06-17] MEDS: HEPARIN SODIUM - SQ 10,000 UNITS/ML VIAL SQ SCH ×2 (18:10→23:50)
[2016-06-17] MEDS: VANCOMYCIN INJ 1,000 MG in SODIUM CHLOR 0.9% 250 ML INJ 250 ML IV SCH (23:49)
[2016-06-18] VITALS (9 sets, daily range): BP systolic 151–190; BP diastolic 90–100; PULSE 50–65; RESP 14–20; TEMP 98–98.8; O2SAT 98
[2016-06-18] MEDS: MORPHINE SULFATE 4 MG/ML INJ IV PRN ×3 (01:20→08:36)
[2016-06-18] MEDS: HYDROmorphone HCL 4 MG TAB PO PRN ×2 (06:15→11:01)
--- NOTE | 2016-06-18 07:14 | MP ---
cc: ISMAEL MARTINO MD DATE OF SURGERY 06/16/2016 PREOPERATIVE DIAGNOSIS Wound dehiscence status post right brachial artery bypass for pseudoaneurysm. POSTOPERATIVE DIAGNOSIS Wound dehiscence status post right brachial artery bypass for pseudoaneurysm. PROCEDURE 1. Right upper extremity bypass revision (resection of bypass and primary reanastomosis. 2. Rotational right biceps flap. SURGEON Ismael Martino MD RESIDENT SURGEON None ANESTHESIA General INDICATIONS Mr. Beard is a 61 year-old gentleman who had a clear bleeding pseudoaneurysm that was repaired emergently. He had immense arm swelling and despite having a palpable radial pulse, he presented to the clinic with a wound dehiscence. Because of the proximity of the graft to the wound, he was taken to the operating room for surgical exploration and eventual revision of his bypass. DESCRIPTION OF PROCEDURE Informed consent was obtained from the patient. He was taken to the operating room, placed supine on the operating room table. An appropriate time out was taken to ensure the patient's identity, operative site and planned procedure. The administration of antibiotics was not necessary. The patient was already on systemic Vancomycin and it was dosed appropriately for his diminished renal function and will be continued postoperatively for ongoing therapy of cellulitis. Everyone in the room agreed with the time out and we proceeded. His right arm and left leg were prepped and draped. His previous incision was opened and the graft was noted to be palpable and intact. Pulse lavage was used to irrigate the entire area with a nice result. There was one area of the graft which was denuded and appeared quite weak. After several attempts to primarily buttress a weakening in the wall, we decided to resect this portion of the graft. The patient was systemically heparinized with 3000 units of IV Heparin. Proximal control of this area was obtained with profunda clamps and this portion of the graft was excised. The end had been mobilized and a primary venovenostomy was then made with running 6-0 Prolene sutures. At the conclusion it was flushed, noted to be hemostatic. The clamps were released. There was a nice Doppler signal in the radial and ulnar locations at the wrist and the heparin was reversed with Protamine. The wound was then made hemostatic. On the medial aspect of the wound, the biceps muscle was identified. It was incised and rotated around its pedicle to provide additional coverage for the graft. It was secured in place over top of the graft with running 2-0 Polysorb suture. The subdermal layer was then closed with 3-0 interrupted suture and the skin was closed with 2-0 nylon sutures. The sponge and needle counts were correct at the end of the case. I was present and scrubbed for the entire procedure. MD MOHAN Salazar/FITO /9:28 PM /7:02 AM
[2016-06-18 07:17] LABS: BICARBONATE 27.4 MEQ/L (21.0-32.0); POTASSIUM 4.2 MEQ/L (3.5-5.1)
--- NOTE | 2016-06-18 08:35 | HHI.FF ---
Face to Face Verification Diagnosis: (1) Postoperative cellulitis of surgical wound (2) Pseudoaneurysm of brachial artery Home Health Nursing Order: Wound care and dressing changes (Pt will need home heealth for wound care changes daily once D/C'd ) I have seen patient Kwadwo Beard on 06/18/16. My clinical findings support the need for the requested home health care services because: Pt has failed out patient wound care from previous episode. Pt will need assistance with monitoring wound care/daily dressing changes while at home. Ltd mobility - disease progression Infection w/ risk of complications I certify that my clinical findings support that this patient is homebound because: Post-op weakness (Pt will need assisitance with large right arm incision) Karime Ruiz Jun 18, 2016 08:35
[2016-06-18] MEDS: HEPARIN SODIUM - SQ 10,000 UNITS/ML VIAL SQ SCH (09:07)
[2016-06-18] MEDS: METOPROLOL TARTRATE 100 MG TAB PO SCH (09:08)
[2016-06-18] MEDS: LOSARTAN 25 MG TAB PO SCH (09:08)
[2016-06-18] MEDS: amLODIPine BESYLATE 5 MG TAB PO SCH (09:08)
[2016-06-18] MEDS: ASPIRIN 81 MG CHEW TAB PO SCH (09:08)
--- NOTE | 2016-06-18 10:03 | PD.VS.PN ---
Subjective POD #: 3 Procedure(s): R arm bypass revision and biceps rotational flap Subjective/Hospital Course c/o arm (not hand) pain that is better Swelling much better. Hand ok Objective Vitals/I&O Date Time Temp Pulse Resp B/P Pulse Ox O2 Delivery O2 Flow Rate FiO2 06/18/16 08:27 98.8 65 14 190/100 98 06/18/16 06:00 50 06/18/16 05:00 52 06/18/16 04:38 98.0 56 20 168/95 98 06/18/16 04:00 98.2 54 20 168/95 98 06/18/16 04:00 50 06/18/16 03:00 54 06/18/16 02:01 53 06/18/16 01:00 54 06/18/16 00:00 98.2 56 20 151/90 98 06/18/16 00:00 54 06/17/16 23:00 62 06/17/16 22:00 66 06/17/16 21:00 68 06/17/16 20:00 98.2 69 20 169/90 98 06/17/16 20:00 70 06/17/16 19:00 66 06/17/16 18:01 64 06/17/16 17:00 66 06/17/16 16:00 60 06/17/16 15:01 98.3 61 18 185/96 98 06/17/16 15:00 56 06/17/16 14:00 56 06/17/16 13:00 54 06/17/16 12:01 52 06/17/16 11:01 98.6 52 20 153/85 100 06/17/16 11:00 55 Exam: R UE incision c/d/i; serosanguinous drainage Good hand strength Laboratory Laboratory Tests Test 06/18/16 06:24 Sodium Level 139 Potassium Level 4.2 Chloride Level 104 Carbon Dioxide Level 27.4 Anion Gap 8 Blood Urea Nitrogen 28 Creatinine 1.50 Estimat Glomerular Filtration 48 Rate Random Glucose 99 Calcium Level 8.8 Assessment and Plan Assessment: (1) Cellulitis Status: Acute (2) Pseudoaneurysm of brachial artery Status: Resolved Plan Doing well, wound ok Hand ok creatinine better 1. PT/OT for hand 2. Compression fingers to shoulder 3. OOB ad darinel, reg diet 4. Continue vanc and check trough before 4th dose (today's dose) anticipate d/c on bactrim Discharge Planning likely tomorrow with HHRN Problem Qualifiers (1) Cellulitis: Ismael Martino MD Jun 18, 2016 10:03
[2016-06-18] MEDS ORDERED: BACT800T5 PO (10:55)
--- NOTE | 2016-06-18 11:11 | PD.VS.DC ---
Discharge Summary Admission Date: Jun 15, 2016 at 15:39 Discharge Date: Jun 18, 2016 Admission Diagnosis: (1) Postoperative cellulitis of surgical wound Discharge Diagnosis: (1) Cellulitis Status: Acute (2) Pseudoaneurysm of brachial artery Status: Resolved (3) Postoperative cellulitis of surgical wound Status: Resolved Brief History from admission Pt was seen in our OPC this afternoon c/o dehisced area at the center of the incision with increased redness and swelling. Pt has failed out patient antibiotic therapy and recently completed Bactrim DS and Clindamycin PO. Pt denies any chills or fevers. Pt was admitted as a direct admit to [facility] from our OPC S/P: RUE pseudoaneurysm of the brachial artery that was repaired by Dr. Martino on 05/29/16. Procedure(s): R arm bypass revision and biceps rotational flap Significant Findings GENERAL: A&OX3, GCS 15, NAD, afebrile SKIN: Warm and dry. Incision to right arm intact with sutures in place, No redness with minimal swelling, + serosanguineous fluid NECK: Supple, No JVD or lymphadenopathy. CARDIOVASCULAR: +S1,S2 RRR RESPIRATORY: Breath sounds equal bilaterally. No accessory muscle use. GASTROINTESTINAL: Abdomen soft, non-tender, nondistended. MUSCULOSKELETAL: No cyanosis, or edema. Bilat Radial pulses palpable Laboratory Tests Test 06/15/16 06/17/16 06/18/16 22:23 05:45 06:24 Red Blood Count 2.96 MIL/MM3 3.01 MIL/MM3 (4.50-5.90) (4.50-5.90) Hemoglobin 8.7 GM/DL 8.5 GM/DL (13.0-17.0) (13.0-17.0) Hematocrit 25.2 % 25.2 % (39.0-51.0) (39.0-51.0) Blood Urea Nitrogen 36 MG/DL (7-18) 29 MG/DL (7-18) 28 MG/DL (7-18) Creatinine 2.17 MG/DL 1.88 MG/DL 1.50 MG/DL (0.60-1.30) (0.60-1.30) (0.60-1.30) Estimat Glomerular Filtration 31 ML/MIN (>89) 37 ML/MIN (>89) 48 ML/MIN (>89) Rate Random Glucose 127 MG/DL 124 MG/DL (74-106) (74-106) Calcium Level 8.4 MG/DL (8.5-10.1) Vancomycin Level Trough 10.6 MCG/ML (5.0-10.0) Hospital Course: Pt was seen in our OPC and was directly admitted to [facility] with post operative cellulitis of surgical wound Pt underwent R arm bypass revision/biceps rotational flap surgical intervention Pt has done well post-op and is Ok to be d/c today Will continue to follow up with pt in our OPC (06/19/16) Allergies Coded Allergies Type Severity Reaction Last Updated Verified Simvastatin Allergy Severe Joint Pain 06/10/16 Yes *MDRO Multi-Drug Resistant Organism Adverse Reaction Unknown 06/16/16 Yes Recent Impressions Chest X-Ray 06/16/16 0000 Signed Impressions: Service Date/Time: Thursday, June 16, 2016 17:39 - CONCLUSION: No acute cardiopulmonary disease. Jose Alejandro Tran MD ///// 06:00 18:00 06:00 18:00 06:00 18:00 Intake Total 960 ml 880 ml 850 ml 1150 ml Output Total 975 ml 100 ml 600 ml 650 ml 600 ml Balance -15 ml 780 ml -600 ml 200 ml 550 ml Intake Oral 960 ml 0 ml 600 ml 900 ml IV Total 180 ml 250 ml 250 ml Other 700 ml Output Urine Total 975 ml 600 ml 650 ml 600 ml Estimated Blood Loss 100 ml # Voids 3 3 # Bowel Movements 0 0 1 Laboratory Tests Test 06/15/16 06/15/16 06/17/16 06/18/16 18:56 22:23 05:45 06:24 Blood Type O POSITIVE Antibody Screen NEGATIVE White Blood Count 6.1 TH/MM3 5.3 TH/MM3 Red Blood Count 2.96 MIL/MM3 3.01 MIL/MM3 Hemoglobin 8.7 GM/DL 8.5 GM/DL Hematocrit 25.2 % 25.2 % Mean Corpuscular Volume 85.2 FL 83.9 FL Mean Corpuscular Hemoglobin 29.4 PG 28.2 PG Mean Corpuscular Hemoglobin 34.5 % 33.7 % Concent Red Cell Distribution Width 16.0 % 15.8 % Platelet Count 375 TH/MM3 361 TH/MM3 Mean Platelet Volume 7.4 FL 7.3 FL Sodium Level 139 MEQ/L 141 MEQ/L 139 MEQ/L Potassium Level 4.2 MEQ/L 4.3 MEQ/L 4.2 MEQ/L Chloride Level 106 MEQ/L 107 MEQ/L 104 MEQ/L Carbon Dioxide Level 23.9 MEQ/L 25.1 MEQ/L 27.4 MEQ/L Anion Gap 9 MEQ/L 9 MEQ/L 8 MEQ/L Blood Urea Nitrogen 36 MG/DL 29 MG/DL 28 MG/DL Creatinine 2.17 MG/DL 1.88 MG/DL 1.50 MG/DL Estimat Glomerular Filtration 31 ML/MIN 37 ML/MIN 48 ML/MIN Rate Random Glucose 127 MG/DL 124 MG/DL 99 MG/DL Calcium Level 8.4 MG/DL 8.5 MG/DL 8.8 MG/DL Vancomycin Level Trough 10.6 MCG/ML Procedure Category Date Status Time Admit To Inpatient ADMITTING 06/15/16 Transmitted Vital Signs (Adult) [facility] 06/15/16 Complete 15:59 Activity Oob Ad Mili DAVIS 06/15/16 In Process 15:59 ^ Notify Dr. CANNON 06/15/16 In Process Parameters 15:59 ^ Wound [facility] 06/15/16 In Process 15:59 Basic Metabolic Panel LAB 06/15/16 Complete (Bmp) 15:59 Cbc No Diff, Includes LAB 06/15/16 Complete Plts 15:59 D5-1/2 Ns + Kcl 20 MED 06/16/16 Complete Meq Inj (D5-1/2 Ns + 00:01 Aspirin (Aspirin) MED 06/16/16 Complete 09:00 Metoprolol Tartrate MED 06/15/16 Complete (Lopressor) 21:00 Atorvastatin (Lipitor) MED 06/15/16 Complete 21:00 Inpatient ADMITTING 06/15/16 Transmitted Certification Type And Screen BBK 06/15/16 Complete 16:17 Vancomycin Inj MED 06/15/16 Complete (Vancomycin Inj) 17:00 Vascular Access Team DAVIS 06/15/16 In Process Consult 16:29 Vascular Poc IMGUS 3/20/17 Taken Ultrasound Oxycodone (Roxicodone) MED 06/15/16 Complete 16:45 Hydromorphone MED 06/15/16 Complete (Dilaudid) 16:45 Morphine Inj MED 06/15/16 In Process (Morphine Inj) 16:45 ^ Other Nursing Orders DAVIS 06/15/16 In Process 16:43 Losartan (Cozaar) MED 06/16/16 In Process 09:00 Amlodipine (Norvasc) MED 06/16/16 In Process 09:00 Equip, Iv Pump Use Of [facility] 06/15/16 Logged 17:22 Diet Heart Healthy DIET 06/15/16 Complete Dinner Equip, Isolation Cart [facility] 06/15/16 Logged 21:53 Isolation DAVIS 06/15/16 In Process 21:53 Hydralazine Inj MED 06/15/16 In Process (Apresoline Inj) 22:00 Vancomycin Trough LAB 06/15/16 Complete 22:23 Diet Npo DIET 06/16/16 Complete Breakfast ^ Diet Progression DAVIS 06/16/16 In Process Instruction 03:32 ^ Obtain DAVIS 06/16/16 In Process 03:32 ^ Lab Studies DAVIS 06/16/16 In Process 03:32 ^ Write Order DAVIS 06/16/16 In Process 03:32 Scd / Luis / Foot Pump DAVIS 06/16/16 In Process 03:32 ^ Iv Setup For Or DAVIS 06/16/16 In Process 03:32 ^ IV DAVIS 06/16/16 In Process 03:32 ^ Iv Piggyback For Or DAVIS 06/16/16 In Process 03:32 Bedside Glucose DAVIS 06/16/16 In Process 03:32 ^ Medication DAVIS 06/16/16 In Process Indications 03:32 Lactated Ringer's MED 06/16/16 Complete 1000 Ml Inj (Lr 1000 M 03:45 Sodium Chlorid 0.9% MED 06/16/16 Complete 500 Ml Inj (Ns 500 M 03:45 Insulin Human Regular MED 06/16/16 Complete Inj (Novolin R Inj 03:45 ^ Other Nursing Orders DAVIS 06/16/16 In Process 10:27 Electrocardiogram CAV 06/16/16 Resulted Midazolam Inj (Versed MED 06/16/16 Complete Inj) 14:55 Famotidine Inj MED 06/16/16 Complete (Pepcid Inj) 14:55 Fentanyl Inj MED 06/16/16 Complete (Fentanyl Inj) 15:01 Morphine Inj MED 06/16/16 Complete (Morphine Inj) 15:06 Heparin Inj (Heparin MED 06/16/16 Complete Inj) 16:28 Protamine Sulfate Inj MED 06/16/16 Complete (Protamine Sulfate 16:46 Admit To Inpatient ADMITTING 06/16/16 Transmitted Code Status CODE 06/16/16 Transmitted 17:24 Vital Signs (Adult) [facility] 06/16/16 Complete 17:24 Extractor Operator Helper / DAVIS 06/16/16 Complete Telemetry 17:24 Activity Bed Rest DAVIS 06/16/16 In Process 17:24 ^ Notify Dr. CANNON 06/16/16 In Process Parameters 17:24 ^ Precautions DAVIS 06/16/16 In Process 17:24 Diet Heart Healthy DIET 06/16/16 Transmitted Dinner Basic Metabolic Panel LAB 06/17/16 Complete (Bmp) 06:00 Cbc No Diff, Includes LAB 06/17/16 Complete Plts 06:00 Case Management CONS 06/16/16 Transmitted Consult Consult Pt Eval & PT 06/16/16 Complete Treat 17:24 Lactated Ringer's MED 06/16/16 In Process 1000 Ml Inj (Lr 1000 M 19:00 Inpatient ADMITTING 06/16/16 Transmitted Certification Aspirin Chew (Aspirin MED 06/17/16 In Process Chew) 09:00 Acetamin-Hydrocod MED 06/16/16 In Process 325-5 Mg (Pinon 5-325 17:30 Hydromorphone MED 06/16/16 In Process (Dilaudid) 17:30 Ibuprofen (Motrin) MED 06/16/16 Complete 17:30 Metoprolol Tartrate MED 06/16/16 In Process (Lopressor) 21:00 Vancomycin Inj MED 06/16/16 In Process (Vancomycin Inj) 20:00 Chest, Single Ap RADDIAG 06/16/16 Resulted *Morphine Inj MED 06/16/16 Complete (*Morphine Inj 17:41 Heparin Inj (Heparin MED 06/17/16 In Process Inj) 16:30 Misc Nursing MED 06/16/16 Complete Information 17:30 [facility] Complete MIN [facility] 06/16[facility]16 Complete Post Anesthesia [facility]16 Complete Basic Metabolic Panel LAB 06/18/16 Complete (Bmp) 06:00 Propofol 200 Mg/20 Ml MED 06/16/16 Complete Inj (Diprivan 200 12:00 Ephedrine/Ns 25 Mg/5 MED 06/16/16 Complete Ml Syr (Ephedrine/N 12:00 Neostigmine Inj MED 06/16/16 Complete (Prostigmin Inj) 12:00 Ondansetron Inj MED 06/16/16 Complete (Zofran Inj) 12:00 Phenyleph/Ns 1000 MED 06/16/16 Complete Mcg/10ml Syr (Neosynep 12:00 Lactated Ringer's MED 06/16/16 Complete 1000 Ml Inj (Lr 1000 M 12:00 Vancomycin Trough LAB 06/18/16 In Process 19:00 Attending Discharge DISCHARGE 06/18/16 Transmitted Order Vital Signs Date Time Temp Pulse Resp B/P Pulse Ox O2 Delivery O2 Flow Rate FiO2 06/18/16 08:27 98.8 65 14 190/100 98 06/18/16 06:00 50 06/18/16 05:00 52 06/18/16 04:38 98.0 56 20 168/95 98 06/18/16 04:00 98.2 54 20 168/95 98 06/18/16 04:00 50 06/18/16 03:00 54 06/18/16 02:01 53 06/18/16 01:00 54 06/18/16 00:00 98.2 56 20 151/90 98 06/18/16 00:00 54 06/17/16 23:00 62 06/17/16 22:00 66 06/17/16 21:00 68 06/17/16 20:00 98.2 69 20 169/90 98 06/17/16 20:00 70 06/17/16 19:00 66 06/17/16 18:01 64 06/17/16 17:00 66 06/17/16 16:00 60 06/17/16 15:01 98.3 61 18 185/96 98 06/17/16 15:00 56 06/17/16 14:00 56 06/17/16 13:00 54 06/17/16 12:01 52 06/17/16 11:01 98.6 52 20 153/85 100 06/17/16 11:00 55 06/17/16 10:00 56 06/17/16 09:00 52 06/17/16 08:01 98.6 55 18 177/91 98 06/17/16 08:00 58 06/17/16 07:00 56 06/17/16 06:00 58 06/17/16 05:00 54 06/17/16 04:49 98.0 56 14 168/88 99 06/17/16 03:00 56 06/17/16 02:00 58 06/17/16 01:49 97.9 64 18 165/84 99 06/17/16 01:00 60 06/17/16 00:00 67 06/16/16 23:00 64 06/16/16 22:00 64 06/16/16 21:00 62 06/16/16 20:00 67 06/16/16 19:43 97.5 67 20 160/90 98 06/16/16 19:00 62 06/16/16 18:43 60 06/16/16 18:00 63 12 149/86 100 Room Air 06/16/16 17:45 70 12 160/83 100 Room Air 06/16/16 17:29 97.4 63 12 140/72 100 Room Air 06/16/16 12:12 98.0 50 18 148/76 98 06/16/16 09:17 98.0 58 18 158/88 98 06/16/16 07:56 84 06/16/16 06:00 54 06/16/16 05:00 52 06/16/16 04:20 98.7 60 18 162/93 98 06/16/16 04:00 54 06/16/16 03:00 56 06/16/16 02:00 54 06/16/16 01:00 52 06/16/16 00:25 16 06/16/16 00:00 54 06/15/16 23:09 98.2 64 18 158/89 98 06/15/16 23:00 62 06/15/16 22:05 18 06/15/16 22:00 64 06/15/16 22:00 172/92 06/15/16 21:00 72 06/15/16 20:00 70 06/15/16 19:15 98.2 66 18 186/96 98 06/15/16 19:00 72 06/15/16 16:30 98.0 76 18 176/98 98 Discharge Condition: Good Discharge Disposition: Disch w/ Home Health Serv (daily wound care dressing changes) Discharge Instructions: Follow up tomorrow in our OPC at 1130 Report any new onset fever, chills, increased redness or swelling Call the office with any questions or concern Keep dressing clean any dry Change dressing daily or as needed if soiled Apply non stick (telfa), 4x4, Kerlix then tape to R arm Karime VILLEGAS [facility] [phone] Any questions or concerns: Call [facility] at [facility] [phone] Karime Ruiz Jun 18, 2016 11:11
== END 2016-06-18 12:30 | disposition home or self-care (01) | DRG 253 ==
LOC: HCIS 15:38 → OBSVTOIN 15:39
PROVIDERS: ADMIT Surgery; ATTEND Surgery
PROC: 03WY07Z Revision of Autologous Tissue Substitute in Upper Artery, Open Approach (ICD-10-PCS; principal; 2016-06-16 15:08)
PROC: 0KX Muscles, Transfer (ICD-10-PCS; 2016-06-16 15:08)
DX: I72.1 Aneurysm of artery of upper extremity (principal); T81.30XA Disruption of wound, unspecified, initial encounter; L03.113 Cellulitis of right upper limb; I69.151 Hemiplegia and hemiparesis following nontraumatic intracerebral hemorrhage affecting right dominant side; I10 Essential (primary) hypertension; F17.210 Nicotine dependence, cigarettes, uncomplicated; M06.9 Rheumatoid arthritis, unspecified; Z86.19 Personal history of other infectious and parasitic diseases; Z85.46 Personal history of malignant neoplasm of prostate
CPT/HCPCS: 71010; 76937; 80048; 80202; 85027; 86850; 86900; 86901; 93005; J0360; J1644; J2250; J2270; J2370; J2405; J2710; J2720; J3010; J3370; J3480; J7050; J7120

== ENCOUNTER 2016-06-30 16:28 | Emergency (ER) | payer MEDICARE, OTHER ==
[~2016-06-30] VITALS: Ht 180.3 cm; Wt 70.0 kg
[2016-06-30 16:30] VITALS: BP 186/94; PULSE 85; RESP 12; TEMP 98; O2SAT 98
--- NOTE | 2016-06-30 16:38 | PD ---
Physical Exam Date Seen by Provider: Jun 30, 2016 Time Seen by Provider: 16:36 Narrative 61 YOWM 6DAY H/O N/V, R FLANK PAIN,INCREASE URINE OUTPUT. JUST IN THE HOSP VSS, AWAITING BED PLACEMENT Data Data Last Documented VS Vital Signs Date Time Temp Pulse Resp B/P Pulse Ox O2 Delivery O2 Flow Rate FiO2 06/30/16 16:30 98.0 85 12 186/94 98 MDM Medical Record Reviewed: Yes Supervised Visit with SHAR: Yes Neel Duque Jun 30, 2016 16:38
[2016-06-30] MEDS ORDERED: SODIUM CHLOR 0.9% 1000 ML INJ 1,000 ML IV SCH (18:24)
[2016-06-30] MEDS ORDERED: ONDANSETRON HCL 4 MG/2 ML VIAL IVP ONE (18:30)
[2016-06-30] MEDS ORDERED: SODIUM CHLORIDE 0.9% FLUSH 10 ML FLUSH IV FLUSH PRN (18:30)
--- NOTE | 2016-06-30 18:37 | PD ---
HPI Chief Complaint: GI Complaint Time Seen by Provider: 18:33 Travel History International Travel<30 days: No Contact w/Intl Traveler<30days: No Traveled to known affect area: No History of Present Illness HPI Patient comes in complaining of vomiting 4 days and right flank pain 2 days. Patient denies any known fevers, chest pain, shortness of breath, diarrhea, or abdominal pain. Patient states he's been trying to eat cereal and drank milk has not been helping. Patient reports he's vomited approximately 12 times today alone. Patient reports one episode of blood in his vomit yesterday and since cleared up. PFSH Past Medical History Arthritis: Yes Asthma: No Blood Disorders: No Anxiety: Yes Depression: No Heart Rhythm Problems: No Cancer: Yes Cardiovascular Problems: Yes Chemotherapy: Yes Chest Pain: Yes Congestive Heart Failure: No COPD: No Cerebrovascular Accident: Yes Coronary Artery Disease: Yes Diabetes: No Diminished Hearing: No Endocrine: No Gastrointestinal Disorders: Yes GERD: No Genitourinary: No Headaches: No Hepatitis: Yes (HEP C) Hiatal Hernia: No Hypertension: Yes Immune Disorder: Yes (HEP C) Kidney Stones: No Musculoskeletal: Yes Neurologic: Yes Psychiatric: Yes Respiratory: Yes Migraines: No Myocardial Infarction: Yes (2007) Radiation Therapy: Yes Renal Failure: No Seizures: No Sleep Apnea: Yes Ulcer: Yes Past Surgical History Abdominal Surgery: No AICD: No Appendectomy: No Arteriovenous Shunt: No Cardiac Surgery: No Cholecystectomy: No Ear Surgery: No Endocrine Surgery: No Eye Surgery: Yes Genitourinary Surgery: No Gynecologic Surgery: No Insulin Pump: No Joint Replacement: Yes (L SHOULDER) Neurologic Surgery: Yes Oral Surgery: Yes Pacemaker: No Thoracic Surgery: No Other Surgery: Yes (PLASTIC SURGERY TO HEAD AND FACE ,) Social History Alcohol Use: No Tobacco Use: Yes (1 ppd) Substance Use: No Allergies-Medications (Allergen,Severity, Reaction): Coded Allergies: Simvastatin (Verified Allergy, Severe, Joint Pain, 06/30/16) COULD NOT TOLERATE STATINS *MDRO Multi-Drug Resistant Organism (Verified Adverse Reaction, Unknown, ) 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 Reported Meds & Prescriptions Reported Meds & Active Scripts Active Zofran Odt (Ondansetron Odt) 4 Mg Tab 4 Mg SL Q6HR PRN [place] (Hydrocodone-Acetaminophen) 5-325 mg Tab 1 Tab PO Q6H PRN Cleocin (Clindamycin HCl) 150 Mg Cap 150 Mg PO Q6H 7 Days Ibuprofen 800 Mg Tab 800 Mg PO Q8H PRN Reported Norvasc (Amlodipine Besylate) 5 Mg Tab 5 Mg PO DAILY Lisinopril 10 Mg Tab 10 Mg PO DAILY Dilaudid (Hydromorphone HCl) 8 Mg Tab 8 Mg PO Q6H PRN Review of Systems Except as stated in HPI: all other systems reviewed are Neg Physical Exam Narrative GENERAL: Well-developed, well nourished, in no acute distress, and non-ill appearing. SKIN: Focused skin assessment warm and dry. Healing surgical wound noted right upper extremity sutures in place there dry clean intact is mildly erythematous, afebrile, nontender, and without fluctuation, drainage, crepitus, or induration. HEAD: Atraumatic. Normocephalic. EYES: Pupils equal and round. EOMI. No scleral icterus. No injection or drainage. ENT: No nasal bleeding or discharge. Mucous membranes pink and moist. NECK: Trachea midline. Supple. No nuclear rigidity. CARDIOVASCULAR: Regular rate and rhythm. No murmur appreciated. RESPIRATORY: No accessory muscle use. No respiratory distress. Clear to auscultation. Breath sounds equal bilaterally. GASTROINTESTINAL: Abdomen soft, non-tender, nondistended. Hepatic and splenic margins not palpable. Normal bowel sounds 4. No pulsatile mass. No tenderness to bilateral CVA. Patient reports tenderness just inferior to the right CVA on his back. MUSCULOSKELETAL: No obvious deformities. No clubbing. No cyanosis. No edema. Full range of motion. NEUROLOGICAL: Awake and alert. No obvious cranial nerve deficits. Motor grossly within normal limits. Normal speech. PSYCHIATRIC: Appropriate mood and affect; insight and judgment normal. Data Data Last Documented VS Vital Signs Date Time Temp Pulse Resp B/P Pulse Ox O2 Delivery O2 Flow Rate FiO2 06/30/16 22:13 98.5 81 16 186/88 97 06/30/16 19:56 Room Air Orders Complete Blood Count With Diff (06/30/16 18:24) Comprehensive Metabolic Panel (06/30/16 18:24) Lipase (06/30/16 18:24) Lactic Acid (06/30/16 18:24) Prothrombin Time / Inr (Pt) (06/30/16 18:24) Act Partial Throm Time (Ptt) (06/30/16 18:24) Urinalysis - C+S If Indicated (06/30/16 18:24) Iv Access Insert/Monitor (06/30/16 18:24) Ecg Monitoring (06/30/16 18:24) Oximetry (06/30/16 18:24) Ondansetron Inj (Zofran Inj) (06/30/16 18:30) Sodium Chlor 0.9% 1000 Ml Inj (Ns 1000 M (06/30/16 18:24) Sodium Chloride 0.9% Flush (Ns Flush) (06/30/16 18:30) Clonidine (Catapres) (06/30/16 19:00) Ct Abd/Pel W/O Iv Contrast (06/30/16 ) Diatrizoate Liq ( Gastroview Liq) (06/30/16 19:52) Hydromorphone Pf Inj (Dilaudid Pf Inj) (06/30/16 20:00) Oral Contrast - Adult (06/30/16 19:53) Labs Laboratory Tests Test 06/30/16 06/30/16 18:45 18:50 Urine Color YELLOW Urine Turbidity CLEAR Urine pH 6.0 Urine Specific [place] 1.021 Urine Protein 300 mg/dL Urine Glucose (UA) TRACE mg/dL Urine Ketones NEG mg/dL Urine Occult Blood NEG Urine Nitrite NEG Urine Bilirubin NEG Urine Urobilinogen 2.0 MG/DL Urine Leukocyte Esterase NEG Urine RBC LESS THAN 1 /hpf Urine WBC 1 /hpf Microscopic Urinalysis Comment CULT NOT INDICATED White Blood Count 7.3 TH/MM3 Red Blood Count 4.15 MIL/MM3 Hemoglobin 11.7 GM/DL Hematocrit 34.7 % Mean Corpuscular Volume 83.7 FL Mean Corpuscular Hemoglobin 28.2 PG Mean Corpuscular Hemoglobin 33.6 % Concent Red Cell Distribution Width 15.6 % Platelet Count 328 TH/MM3 Mean Platelet Volume 7.1 FL Neutrophils (%) (Auto) 69.0 % Lymphocytes (%) (Auto) 20.8 % Monocytes (%) (Auto) 7.0 % Eosinophils (%) (Auto) 2.6 % Basophils (%) (Auto) 0.6 % Neutrophils # (Auto) 5.1 TH/MM3 Lymphocytes # (Auto) 1.5 TH/MM3 Monocytes # (Auto) 0.5 TH/MM3 Eosinophils # (Auto) 0.2 TH/MM3 Basophils # (Auto) 0.0 TH/MM3 CBC Comment DIFF FINAL Differential Comment Prothrombin Time 10.6 SEC Prothromb Time International 1.0 RATIO Ratio Activated Partial 27.5 SEC Thromboplast Time Sodium Level 138 MEQ/L Potassium Level 4.8 MEQ/L Chloride Level 105 MEQ/L Carbon Dioxide Level 26.0 MEQ/L Anion Gap 7 MEQ/L Blood Urea Nitrogen 42 MG/DL Creatinine 2.30 MG/DL Estimat Glomerular Filtration 29 ML/MIN Rate Random Glucose 96 MG/DL Lactic Acid Level 1.6 mmol/L Calcium Level 9.0 MG/DL Total Bilirubin 0.2 MG/DL Aspartate Amino Transf 48 U/L (AST/SGOT) Alanine Aminotransferase 55 U/L (ALT/SGPT) Alkaline Phosphatase 162 U/L Total Protein 8.2 GM/DL Albumin 3.0 GM/DL Lipase 453 U/L [facility] Medical Decision Making Medical Screen Exam Complete: Yes Emergency Medical Condition: Yes Differential Diagnosis Renal calculi, renal colic, cholelithiasis, gastroenteritis, pancreatitis, other Narrative Course 0 RN informs me patient Elvia as he does not feel nauseous currently and is requesting something to eat. The patient presented with vomiting and right low back pain. The patient appeared comfortable, hydrated and the abdominal exam was unremarkable and nontender to me, and without defined focal tenderness. Laboratory and radiographic evaluation revealed no significant abnormality. There was no evidence of an acute, surgical abdomen at this time. There was no clinical or radiological evidence to support bowel obstruction, cholecystitis/cholelithiasis , pancreatitis, perforation of gastric ulcer, colitis, diverticulitis, bacterial peritonitis, obstruction, volvulus, early appendicitis, or hernial incarceration or strangulation at this time. There was no evidence to support vascular pathology such as AAA, mesenteric ischemia, nor significant GIB. There was also no clinical evidence by history, exam or risk factors to suggest atypical presentation of cardiac disease such as ACS, AMI or atypical angina. No evidence to suggest genitourinary etiology as well. During the course of the ED visit the patient was given IVF, the patient noted improvement. The patient was able to tolerate fluids at discharge. Clinical picture was discussed with the patient, as well as plan of care. The patient was instructed to follow up with their physician. Abdominal pain warnings were discussed with the patient. The patient is to return if worsens, pain worsens or changes, develop fever, inability to tolerate fluids with or without vomiting, unable to establish follow up or as needed. The patient agrees with plan. Patient in no obvious distress upon re-evaluation. All pertinent laboratory/ Radiology result(s) discussed with patient. Patient was asked if they wanted to speak to my attending, which the patient did not wish to do at this time. I discussed patient with Dr. Dorsey prior to discharge, who is in agreement care and disposition. Any questions/concerns in reference to patient diagnosis/ condition discussed and clarified prior to patient's discharge. Reinforced sheer importance of close follow up with patient's primary physician or primary care clinic. Instructed patient to return to ED immediately, if symptoms return/ worsen. Pt showed understanding of above instructions. Further instructions and recommendations were detailed in discharge paperwork. Pt ambulated without difficulty out of ED at discharge. Diagnosis Primary Impression: Vomiting Qualified Code: R11.10 - Non-intractable vomiting, presence of nausea not specified, unspecified vomiting type Referrals: Sofi Glynn MD Patient Instructions: Acute Nausea and Vomiting (ED), General Instructions Additional Instructions: Follow-up with your primary care physician and/or GI this week. Take all medication as prescribed. Drink plenty of non-caffeinated and nonalcoholic fluids Return to the emergency department if symptoms get worse. Med/Other Pt SpecificInfo: Prescription(s) given Scripts Ondansetron Odt (Zofran Odt)4 Mg Tab4 Mg SL Q6HR PRN (Nausea/Vomiting) #12 TAB Ref 0 Prov:Марина Dorsey MD 06/30/16 Disposition: 01 DISCHARGE HOME Condition: Stable Roe Gutierrez Jun 30, 2016 18:37
[2016-06-30] MEDS ORDERED: AMLO5 PO (18:43)
[2016-06-30] MEDS ORDERED: LISI10TA3 PO (18:43)
[2016-06-30] MEDS ORDERED: DILA8TAB4 PO (18:43)
[2016-06-30] MEDS ORDERED: cloNIDine HCL 0.1 MG TAB PO ONE (19:00)
[2016-06-30 19:05] LABS: AUTOMATED NEUTROPHIL # 5.1 TH/MM3 (1.8-7.7); BASOPHIL % 0.6 % (0.0-2.0); EOSINOPHIL # 0.2 TH/MM3 (0-0.4); EOSINOPHIL % 2.6 % (0.0-4.0); HEMATOCRIT 34.7 % (39.0-51.0); HEMO FLAGS DIFF FINAL; LYMPH % 20.8 % (9.0-44.0); LYMPHOCYTE # 1.5 TH/MM3 (1.0-4.8); MEAN CELL VOLUME 83.7 FL (80.0-100.0); MEAN CORPUSCULAR HEMOGLOBIN 28.2 PG (27.0-34.0); MEAN CORPUSCULAR HGB CONC 33.6 % (32.0-36.0); PLATELET COUNT 328 TH/MM3 (150-450); RED BLOOD COUNT 4.15 MIL/MM3 (4.50-5.90); RED CELL DISTRIBUTION WIDTH 15.6 % (11.6-17.2); WHITE BLOOD COUNT 7.3 TH/MM3 (4.0-11.0)
[2016-06-30 19:14] VITALS: BP 189/98; PULSE 64; RESP 18; O2SAT 98
[2016-06-30 19:23] LABS: BLOOD, URINE NEG (NEG); GLUCOSE,URINE TRACE mg/dL (NEG); KETONE, URINE NEG (NEG); NITRITE,URINE NEG (NEG); URINE COLOR YELLOW (YELLW/STRAW)
[2016-06-30 19:25] LABS: COMMENT (UR) CULT NOT INDICATED; CULTURE IF INDICATED CULT NOT INDICATED
[2016-06-30 19:26] LABS: ANION GAP 7 MEQ/L (5-15); AST (GOT) 48 U/L (15-37); BLOOD UREA NITROGEN 42 MG/DL (7-18); CHLORIDE 105 MEQ/L (98-107); GLOMERULAR FILTRATION RATE 29 ML/MIN (>89); POTASSIUM 4.8 MEQ/L (3.5-5.1); SODIUM (NA) 138 MEQ/L (136-145)
[2016-06-30 19:29] LABS: ALKALINE PHOSPHATASE 162 U/L (45-117); ALT (GPT) 55 U/L (12-78); TOTAL BILIRUBIN ADULT 0.2 MG/DL (0.2-1.0)
[2016-06-30 19:43] LABS: APTT (PATIENT) 27.5 SEC (24.3-30.1); PROTHROMBIN TIME - PATIENT 10.6 SEC (9.8-11.6)
[2016-06-30] MEDS ORDERED: DIATRIZOATE MEGLUM/DIATRIZOATE SOD 9 ML CUP ONE (19:52)
[2016-06-30 19:56] VITALS: BP 195/97; PULSE 60; RESP 18; O2SAT 99
[2016-06-30] MEDS ORDERED: HYDROmorphone HCL PF 1 MG/ML VIAL IV PUSH ONE (20:00)
--- NOTE | 2016-06-30 21:49 | RADRPT ---
EXAM DATE/TIME: 06/30/2016 21:00 [place] COMPARISON: No previous studies available for comparison. INDICATIONS : Right sided abdominal pain. ORAL CONTRAST: Prescribed oral contrast ingested. RADIATION DOSE: 8.90 CTDIvol (mGy) MEDICAL HISTORY : Hypertension. Hepatitis C. Carcinoma, prostate.Ulcer SURGICAL HISTORY : None. ENCOUNTER: Initial ACUITY: 1 day PAIN SCALE: 6/10 LOCATION: Right Abdomen/pelvis TECHNIQUE: Volumetric scanning of the abdomen and pelvis was performed. Using automated exposure control and ad justment of the mA and/or kV according to patient size, radiation dose was kept as low as reasonably achievable to obtain optimal diagnostic quality images. FINDINGS: LOWER LUNGS: The visualized lower lungs are clear. LIVER: Homogeneous density without lesion for noncontrast technique. There is no dilation of the biliary tr ee. No calcified gallstones. SPLEEN: Normal size without lesion. PANCREAS: Within normal limits. KIDNEYS: Normal in size and shape. There is no mass, stone, or hydronephrosis. ADRENAL GLANDS: Within normal limits. VASCULAR: There is no aortic aneurysm. BOWEL/MESENTERY: The stomach, small bowel, and colon demonstrate no acute abnormality. There is no free intraperitone al air or fluid. ABDOMINAL WALL: Within normal limits. RETROPERITONEUM: There is no lymphadenopathy. BLADDER: No wall thickening or mass. REPRODUCTIVE: Within normal limits. INGUINAL: There is no lymphadenopathy or hernia. MUSCULOSKELETAL: Within normal limits for patient age. CONCLUSION: Negative CT abdomen/pelvis without contrast. Bernabe Nicole MD on June 30, 2016 at 21:46 Board Certified Radiologist. This report was verified electronically.
[2016-06-30] MEDS ORDERED: ZOFR4TAB3 SL (22:01)
[2016-06-30 22:13] VITALS: BP 186/88; TEMP 98.5
== END 2016-06-30 22:13 | disposition home or self-care (01) ==
LOC: NEPE 16:28
DX: R11.10 Vomiting, unspecified (principal); R10.9 Unspecified abdominal pain; M54.5 Low back pain; I10 Essential (primary) hypertension; G47.30 Sleep apnea, unspecified; F17.200 Nicotine dependence, unspecified, uncomplicated; Z87.39 Personal history of other diseases of the musculoskeletal system and connective tissue; Z86.59 Personal history of other mental and behavioral disorders; Z86.79 Personal history of other diseases of the circulatory system; Z87.19 Personal history of other diseases of the digestive system; Z86.69 Personal history of other diseases of the nervous system and sense organs; Z87.09 Personal history of other diseases of the respiratory system
CPT/HCPCS: 74176; 80053; 81001; 83605; 83690; 85025; 85610; 85730; 96361; 96374; 99284; J1170; J7030; Q9963

== ENCOUNTER 2016-09-06 09:31 | Emergency (ER) | payer MEDICARE, OTHER ==
[~2016-09-06] VITALS: Ht 180.3 cm; Wt 66.0 kg
[~2016-09-06 09:31] MED LIST changes: +AMLO5 PO; -ASPI81TA82 PO; -BACT800T5 PO; +LISI10TA3 PO; -LOSA25TA31 PO; -METO100 PO; -NORV5TAB PO; +ZOFR4TAB3 SL
[2016-09-06 09:34] VITALS: BP 203/109; PULSE 89; RESP 16; TEMP 97.8; O2SAT 98
[2016-09-06 09:36] VITALS: BP 192/93; PULSE 74; RESP 16; O2SAT 100
[2016-09-06] MEDS ORDERED: ERYTOIN10 RIGHT EYE (10:51)
--- NOTE | 2016-09-06 10:51 | PD ---
HPI Chief Complaint: Eye Problems/Injury Time Seen by Provider: 10:29 Travel History International Travel<30 days: No Contact w/Intl Traveler<30days: No Traveled to known affect area: No History of Present Illness HPI Patient is a 61-year-old male who presents the emergency department with complaint of pain and redness in the right eye. Patient was working on the car approximately 4 days ago when he felt something in the right eye. He states that he washed the right eye out, and did not see any foreign body. Patient however has been having pain in the right eye, blurry vision, and redness since. He denies any foreign body sensation. Notes a previous ocular surgery on the right eye for "weak muscles". He does not work contacts or glasses. PFSH Past Medical History Arthritis: Yes Asthma: No Blood Disorders: No Anxiety: Yes Depression: No Heart Rhythm Problems: No Cancer: Yes (PROSTATE) Cardiovascular Problems: Yes Chemotherapy: Yes (5 YEARS AGO) Chest Pain: Yes Congestive Heart Failure: No COPD: No Cerebrovascular Accident: Yes (2011) Coronary Artery Disease: Yes Diabetes: No Diminished Hearing: No Endocrine: No Gastrointestinal Disorders: Yes GERD: No Genitourinary: No Headaches: No Hepatitis: Yes (HEP C) Hiatal Hernia: No Hypertension: Yes Immune Disorder: Yes (HEP C) Kidney Stones: No Musculoskeletal: Yes Neurologic: Yes Psychiatric: Yes Respiratory: Yes Migraines: No Myocardial Infarction: Yes (2007) Radiation Therapy: Yes Renal Failure: No Seizures: No Sleep Apnea: Yes Ulcer: Yes Past Surgical History Abdominal Surgery: No AICD: No Appendectomy: No Arteriovenous Shunt: No Cardiac Surgery: No Cholecystectomy: No Ear Surgery: No Endocrine Surgery: No Eye Surgery: Yes Genitourinary Surgery: No Gynecologic Surgery: No Insulin Pump: No Joint Replacement: Yes (L SHOULDER) Neurologic Surgery: Yes Oral Surgery: Yes Pacemaker: No Thoracic Surgery: Yes (RIGHT UPPER ARM ARTERY SURGERY) Other Surgery: Yes (PLASTIC SURGERY TO HEAD AND FACE ,) Social History Alcohol Use: No Tobacco Use: Yes (1 ppd) Substance Use: No Allergies-Medications (Allergen,Severity, Reaction): Coded Allergies: Simvastatin (Verified Allergy, Severe, Joint Pain, 09/06/16) COULD NOT TOLERATE STATINS *MDRO Multi-Drug Resistant Organism (Verified Adverse Reaction, Unknown, ) 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 Reported Meds & Prescriptions Reported Meds & Active Scripts Active Erythromycin Opth Oint 5 Mg/Gm Oint 1 Applic RIGHT EYE QID Reported Norvasc (Amlodipine Besylate) 5 Mg Tab 5 Mg PO DAILY Lisinopril 10 Mg Tab 10 Mg PO DAILY Dilaudid (Hydromorphone HCl) 8 Mg Tab 8 Mg PO Q6H PRN Review of Systems Except as stated in HPI: all other systems reviewed are Neg Physical Exam Narrative GENERAL: Well-appearing adult male appearing older than stated age in no acute distress SKIN: Focused skin assessment warm/dry. HEAD: Normocephalic. EYES: The right eye is injected, erythematous. There is some sparing of the limbus. Pupils are 3 mm bilaterally, equal and reactive. No afferent pupillary defect. No significant photophobia. There does appear to be a foreign body in the cornea grossly. With fluorescein staining there is a small abrasion/foreign body along the cornea but no other uptake. No evidence of open globe/Joshua sign. Visual acuity is 20/40 in the left, unaffected eye. 20 /200 in the right, unaffected eye. Intraocular pressure 13 in the right, 12 in the left. Slit lamp examination confirms foreign body in the right cornea, this appears superficial. There does not appear to be any cell or flare, hypopyon in the anterior chamber. NECK: Supple CARDIOVASCULAR: Regular rate and rhythm. RESPIRATORY: No accessory muscle use. MUSCULOSKELETAL: Normal gait NEUROLOGICAL: Awake and alert. No obvious cranial nerve deficits other than visual acuity as above. Motor grossly within normal limits. Normal speech. PSYCHIATRIC: Appropriate mood and affect; insight and judgment normal. Data Data Last Documented VS Vital Signs Date Time Temp Pulse Resp B/P Pulse Ox O2 Delivery O2 Flow Rate FiO2 09/06/16 09:36 74 16 192/93 100 09/06/16 09:34 97.8 MDM Medical Decision Making Medical Screen Exam Complete: Yes Emergency Medical Condition: Yes Medical Record Reviewed: Yes Differential Diagnosis 61-year-old male with complaint of right eye pain and blurry vision 3-4 days since he felt a foreign body sensation while working on a vehicle. Exam is consistent with corneal foreign body with concurrent abrasion. There does not appear to be any open globe, iritis, hypopyon, endophthalmitis, corneal ulcer. Narrative Course During slit lamp examination after proparacaine was instilled into the eye a 27- gauge needle was used to remove the superficial foreign body in the right cornea successfully. This was then removed with a Q-tip from the inferior palpebral fissure. Repeat examination of the eye reveals small abrasion surrounding the foreign body bed, but again no evidence of open globe, Joshua sign. The patient will be discharged home with erythromycin ointment and outpatient ophthalmology follow-up in 1-2 days. Diagnosis Primary Impression: Corneal foreign body Qualified Code: T15.01XA - Corneal foreign body, right, initial encounter Additional Impression: Corneal abrasion Qualified Code: S05.01XA - Corneal abrasion, right, initial encounter Referrals: Amy Merchant MD 1 day Call ophthalmology tomorrow for follow-up appointment in the next 1-2 days for repeat eye exam. Additional Instructions: Antibiotic ointment as prescribed. Call ophthalmology tomorrow for follow-up appointment Wednesday/Wednesday. Med/Other Pt SpecificInfo: Prescription(s) given Scripts Erythromycin Opth Oint 5 Mg/Gm Oint1 Applic RIGHT EYE QID #1 TUBE Ref 0 Prov:Sita Heard MD 09/06/16 Disposition: 01 DISCHARGE HOME Condition: Stable Sita Heard MD Sep 06, 2016 10:51 Condition: Stable Sita Heard MD Sep 06, 2016 10:51
== END 2016-09-06 11:18 | disposition home or self-care (01) ==
LOC: NEPD 09:31
DX: T15.01XA Foreign body in cornea, right eye, initial encounter (principal); S05.01XA Injury of conjunctiva and corneal abrasion without foreign body, right eye, initial encounter; I25.10 Atherosclerotic heart disease of native coronary artery without angina pectoris; B19.20 Unspecified viral hepatitis C without hepatic coma; I25.2 Old myocardial infarction; F17.210 Nicotine dependence, cigarettes, uncomplicated; X58.XXXA Exposure to other specified factors, initial encounter
CPT/HCPCS: 65222

== ENCOUNTER 2016-10-12 08:27 | Emergency (ER) | payer MEDICARE, OTHER ==
[~2016-10-12] VITALS: Ht 180.3 cm; Wt 69.0 kg
[~2016-10-12 08:27] MED LIST changes: -CLIN150 PO; +ERYTOIN10 RIGHT EYE; -IBUP800T23 PO; -NORC5TAB PO; -ZOFR4TAB3 SL
[2016-10-12 08:29] VITALS: BP 215/104; PULSE 80; RESP 15; TEMP 98.2; O2SAT 99
[2016-10-12] MEDS ORDERED: IBUPROFEN 600 MG TAB PO ONE (09:30)
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
--- NOTE | 2016-10-12 10:02 | PD ---
HPI Chief Complaint: Pain: Acute or Chronic Time Seen by Provider: 08:47 Travel History International Travel<30 days: No Contact w/Intl Traveler<30days: No Traveled to known affect area: No History of Present Illness HPI 61-year-old male complains of left shoulder left arm pain. Patient states that doing some heavy lifting last night and started having sharp stabbing pain localized left axilla area. Patient denies any pain radiation. Patient states the pain is worse with movement of the left shoulder joint. Patient has history of chronic right and left upper arm pain from injury to the right arm and vascular surgery to left upper arm. Patient denies any fever chills. On a scale of 1-10 the pain is an 8. Patient on Dilaudid for chronic pain. PFSH Past Medical History Arthritis: Yes Asthma: No Blood Disorders: No Anxiety: Yes Depression: No Heart Rhythm Problems: No Cancer: Yes (PROSTATE) Cardiovascular Problems: Yes (CAD) Chemotherapy: Yes (PROSTATE CA) Chest Pain: Yes Congestive Heart Failure: No COPD: No Cerebrovascular Accident: Yes (X3) Coronary Artery Disease: Yes Diabetes: No Diminished Hearing: No Endocrine: No Gastrointestinal Disorders: Yes GERD: No Genitourinary: No Headaches: No Hepatitis: Yes (HEP C) Hiatal Hernia: No Hypertension: Yes Immune Disorder: Yes (HEP C) Kidney Stones: No Musculoskeletal: Yes Neurologic: Yes Psychiatric: Yes Respiratory: Yes Immunizations Current: No Migraines: No Myocardial Infarction: Yes (2008) Radiation Therapy: Yes Renal Failure: No Seizures: No Sleep Apnea: Yes Ulcer: Yes Past Surgical History Abdominal Surgery: No AICD: No Appendectomy: No Arteriovenous Shunt: No Cardiac Surgery: No Cholecystectomy: No Ear Surgery: No Endocrine Surgery: No Eye Surgery: Yes Genitourinary Surgery: No Gynecologic Surgery: No Insulin Pump: No Joint Replacement: Yes (L SHOULDER) Neurologic Surgery: Yes Oral Surgery: Yes Pacemaker: No Thoracic Surgery: Yes (RIGHT UPPER ARM ARTERY SURGERY) Other Surgery: Yes (PLASTIC SURGERY TO HEAD AND FACE ,) Social History Alcohol Use: No Tobacco Use: Yes (1 ppd) Substance Use: No Allergies-Medications (Allergen,Severity, Reaction): Coded Allergies: Simvastatin (Verified Allergy, Severe, Joint Pain, 09/06/16) COULD NOT TOLERATE STATINS *MDRO Multi-Drug Resistant Organism (Verified Adverse Reaction, Unknown, ) 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 Reported Meds & Prescriptions Reported Meds & Active Scripts Active Reported Norvasc (Amlodipine Besylate) 5 Mg Tab 5 Mg PO DAILY Lisinopril 10 Mg Tab 10 Mg PO DAILY Dilaudid (Hydromorphone HCl) 8 Mg Tab 8 Mg PO Q6H PRN Review of Systems General / Constitutional: No: Fever Eyes: No: Visual changes HENT: No: Headaches Cardiovascular: No: Chest Pain or Discomfort Respiratory: No: Shortness of Breath Gastrointestinal: No: Abdominal Pain Genitourinary: No: Dysuria Musculoskeletal: Positive: Pain Skin: No Rash Neurologic: No: Weakness Psychiatric: No: Depression Endocrine: No: Polydipsia Hematologic/Lymphatic: No: Easy Bruising Physical Exam Narrative GENERAL: Well-nourished, well-developed patient. SKIN: Focused skin assessment warm/dry. HEAD: Normocephalic. EYES: No scleral icterus. No injection or drainage. NECK: Supple, trachea midline. No JVD or lymphadenopathy. CARDIOVASCULAR: Regular rate and rhythm without murmurs, gallops, or rubs. RESPIRATORY: Breath sounds equal bilaterally. No accessory muscle use. GASTROINTESTINAL: Abdomen soft, non-tender, nondistended. MUSCULOSKELETAL: No cyanosis, or edema. BACK: Nontender without obvious deformity. No CVA tenderness. Patient has mild to moderate tenderness on palpation left axilla area. No redness no heat noted. Limited range of motion the left shoulder secondary to pain. Sensorimotor function distally intact. Data Data Last Documented VS Vital Signs Date Time Temp Pulse Resp B/P Pulse Ox O2 Delivery O2 Flow Rate FiO2 10/12/16 08:29 98.2 80 15 215/104 99 Orders Shoulder, Limited(2vws) (10/12/16 08:52) Ibuprofen (Motrin) (10/12/16 09:30) MDM Medical Decision Making Medical Screen Exam Complete: Yes Emergency Medical Condition: Yes Interpretation(s) Last Impressions Shoulder X-Ray 10/12/1672 Signed Impressions: Service Date/Time: Wednesday, October 12, 2016 09:20 - CONCLUSION: 1. Mild degenerative osteoarthritis. 2. No acute fracture or dislocation. Freddy Duong MD Differential Diagnosis Differential diagnosis including strain, sprain, fracture, dislocation. Narrative Course 61-year-old male with sudden onset of left axilla pain secondary to lifting last night. History of left arm surgery in the past. Diagnosis Primary Impression: Left shoulder strain Qualified Code: S46.912A - Left shoulder strain, initial encounter Patient Instructions: General Instructions Additional Instructions: Tylenol ibuprofen as needed for pain. Ice pack as needed. Sling to left arm. Follow-up with an orthopedist if persistent problem. Med/Other Pt SpecificInfo: No Change to Meds Disposition: 01 DISCHARGE HOME Condition: Stable Guido Del Rio MD Oct 12, 2016 10:02
== END 2016-10-12 10:20 | disposition home or self-care (01) ==
LOC: NEPE 08:27
DX: S46.912A Strain of unspecified muscle, fascia and tendon at shoulder and upper arm level, left arm, initial encounter (principal); X50.9XXA Other and unspecified overexertion or strenuous movements or postures, initial encounter
CPT/HCPCS: 73030; 99283

== ENCOUNTER 2016-12-17 06:03 | Inpatient (IN) | payer MEDICARE, OTHER ==
[~2016-12-17] VITALS: Ht 180.3 cm; Wt 64.9 kg
[2016-12-17] VITALS (7 sets, daily range): BP systolic 164–217; BP diastolic 74–110; PULSE 53–62; RESP 15–25; TEMP 97.8–98.3; O2SAT 96–98
[~2016-12-17 06:03] MED LIST changes: -ERYTOIN10 RIGHT EYE
[2016-12-17] MEDS ORDERED: GADOBENATE DIM PF 529 MG/ML 5 ML VIAL (for RAD MRI) IV ONE (06:04)
[2016-12-17] MEDS ORDERED: ONDANSETRON HCL 4 MG/2 ML VIAL IV PUSH ONE ×2 (06:45→10:20)
[2016-12-17] MEDS ORDERED: HYDROmorphone HCL PF 1 MG/ML VIAL IV PUSH ONE ×2 (06:45→09:45)
[2016-12-17] MEDS ORDERED: SODIUM CHLOR 0.9% 1000 ML INJ 1,000 ML IV SCH (06:45)
--- NOTE | 2016-12-17 06:54 | PD ---
HPI Chief Complaint: Pain: Acute or Chronic Time Seen by Provider: 06:43 Travel History International Travel<30 days: No Contact w/Intl Traveler<30days: No Traveled to known affect area: No History of Present Illness HPI 61-year-old male presents to the emergency department by EMS transport from home for complaint of neck pain radiating into the right posterior shoulder and trapezius distribution. Patient states she's had progressive worsening neck pain over the past several days to weeks. Patient states she's been taking his prescription pain medication and ibuprofen without relief. Patient states he recently was hospitalized for repair of a vessel in the right upper extremity which has been described as a pseudoaneurysm repair which was performed May 2016. Patient was admitted subsequently for cellulitis of the same side. Patient has not been on antibiotic for some time and has had no fever no chills. No history of IV drug abuse. Patient has prior history of degenerative disc disease of the cervical spine but does not report any upper extremity or lower extremity numbness tingling or weakness. Patient rates pain as 10 over 10 in intensity. Patient has had no previous surgery to the cervical spine or head and neck area. 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 saphenous graft bypass , abscess, Hypertension, CVA, CAD, MS, CAD; tobacco use; nursing notes reviewed Arthritis: Yes Asthma: No Blood Disorders: No Anxiety: Yes Depression: No Heart Rhythm Problems: No Cancer: Yes (PROSTATE) Cardiovascular Problems: Yes (CAD) Chemotherapy: Yes (PROSTATE CA) Chest Pain: Yes Congestive Heart Failure: No COPD: No Cerebrovascular Accident: Yes (X3) Coronary Artery Disease: Yes Diabetes: No Diminished Hearing: No Endocrine: No Gastrointestinal Disorders: Yes GERD: No Genitourinary: No Headaches: No Hepatitis: Yes (HEP C) Hiatal Hernia: No Hypertension: Yes Immune Disorder: Yes (HEP C) Kidney Stones: No Musculoskeletal: Yes Neurologic: Yes Psychiatric: Yes Respiratory: Yes Immunizations Current: No Migraines: No Myocardial Infarction: Yes (2007) Radiation Therapy: Yes Renal Failure: No Seizures: No Sleep Apnea: Yes Ulcer: Yes Past Surgical History Abdominal Surgery: No AICD: No Appendectomy: No Arteriovenous Shunt: No Cardiac Surgery: No Cholecystectomy: No Ear Surgery: No Endocrine Surgery: No Eye Surgery: Yes Genitourinary Surgery: No Gynecologic Surgery: No Insulin Pump: No Joint Replacement: Yes (L SHOULDER) Neurologic Surgery: Yes Oral Surgery: Yes Pacemaker: No Thoracic Surgery: Yes (RIGHT UPPER ARM ARTERY SURGERY) Other Surgery: Yes (PLASTIC SURGERY TO HEAD AND FACE ,) Social History Alcohol Use: No Tobacco Use: Yes (1 ppd) Substance Use: No Allergies-Medications (Allergen,Severity, Reaction): Coded Allergies: simvastatin (Unverified Allergy, Severe, Joint Pain, 11/10/16) COULD NOT TOLERATE STATINS *MDRO Multi-Drug Resistant Organism (Verified Adverse Reaction, Unknown, ) 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 Reported Meds & Prescriptions Reported Meds & Active Scripts Active Reported Norvasc (Amlodipine Besylate) 5 Mg Tab 5 Mg PO DAILY Lisinopril 10 Mg Tab 10 Mg PO DAILY Dilaudid (Hydromorphone HCl) 8 Mg Tab 8 Mg PO Q6H PRN Review of Systems Except as stated in HPI: all other systems reviewed are Neg General / Constitutional: No: Fever, Chills HENT: No: Congestion Cardiovascular: No: Chest Pain or Discomfort, Palpitations, Tachycardia, Diaphoresis, Syncope, Dyspnea on exertion Respiratory: No: Shortness of Breath, Wheezing Gastrointestinal: No: Nausea, Vomiting, Abdominal Pain Genitourinary: No: Dysuria, Flank Pain Musculoskeletal: Positive: Pain (neck--MRI 2012 degenerative disc disease, right upper extremity since 05/2016), No: Myalgias, Arthralgias, Limited ROM Skin: No Rash (neck) Neurologic: No: Weakness, Dizziness, Syncope, Focal Abnormalities, Coordination Problem Psychiatric: No: Anxiety Endocrine: No: Heat Intolerance Hematologic/Lymphatic: No: Easy Bruising Physical Exam Narrative GENERAL: Well-developed well-nourished male in no acute distress no respiratory distress SKIN: Warm and dry. HEAD: Normocephalic. EYES: No scleral icterus. No injection or drainage. NECK: Supple, trachea midline. No JVD or lymphadenopathy. Tenderness to palpation along the posterior cervical spine mild right paracervical muscle spasm and tenderness to palpation in the trapezius distribution. CARDIOVASCULAR: Regular rate and rhythm without murmurs, gallops, or rubs. RESPIRATORY: Breath sounds equal bilaterally. No accessory muscle use. GASTROINTESTINAL: Abdomen soft, non-tender, nondistended. MUSCULOSKELETAL: No cyanosis, or edema. Bilateral upper extremity over 5 motor strength radial pulses 2+ to palpation. Sensory exam intact. Well healing scar volar aspect of right upper arm no redness no induration no tenderness no increased warmth no drainage no fluctuance no axillary tenderness or lymphadenopathy. BACK: Nontender without obvious deformity. No CVA tenderness. Data Data Last Documented VS Vital Signs Date Time Temp Pulse Resp B/P (MAP) Pulse Ox O2 Delivery O2 Flow Rate FiO2 12/17/16 06:19 62 18 196/108 (137) Room Air 12/17/16 06:16 97 Orders Orders ^ Saline Lock (12/17/16 06:43) Complete Blood Count With Diff (12/17/16 06:43) Basic Metabolic Panel (Bmp) (12/17/16 06:43) Ct Cerv Spine W/O Contrast (12/17/16 ) Hydromorphone Pf Inj (Dilaudid Pf Inj) (12/17/16 06:45) Ondansetron Inj (Zofran Inj) (12/17/16 06:45) Sodium Chlor 0.9% 1000 Ml Inj (Ns 1000 M (12/17/16 06:45) Ketorolac Inj (Toradol Inj) (12/17/16 07:00) Labs Laboratory Tests Test 12/17/16 06:50 White Blood Count 7.0 TH/MM3 Red Blood Count 4.24 MIL/MM3 Hemoglobin 11.7 GM/DL Hematocrit 35.5 % Mean Corpuscular Volume 83.8 FL Mean Corpuscular Hemoglobin 27.5 PG Mean Corpuscular Hemoglobin Concent 32.9 % Red Cell Distribution Width 15.1 % Platelet Count 377 TH/MM3 Mean Platelet Volume 7.1 FL Neutrophils (%) (Auto) 68.6 % Lymphocytes (%) (Auto) 19.6 % Monocytes (%) (Auto) 7.4 % Eosinophils (%) (Auto) 3.6 % Basophils (%) (Auto) 0.8 % Neutrophils # (Auto) 4.8 TH/MM3 Lymphocytes # (Auto) 1.4 TH/MM3 Monocytes # (Auto) 0.5 TH/MM3 Eosinophils # (Auto) 0.3 TH/MM3 Basophils # (Auto) 0.1 TH/MM3 CBC Comment DIFF FINAL Differential Comment MDM Medical Decision Making Medical Screen Exam Complete: Yes Emergency Medical Condition: Yes Medical Record Reviewed: Yes Interpretation(s) CBC & BMP Diagram 9/21/17 06:50 Vital Signs Date Time Temp Pulse Resp B/P (MAP) Pulse Ox O2 Delivery O2 Flow Rate FiO2 12/17/16 06:19 62 18 196/108 (137) Room Air 12/17/16 06:16 59 18 217/105 (142) 97 Differential Diagnosis Cervical strain, HNP, cervical radiculopathy; also to consider epidural abscess Narrative Course care signerd over to Dr Varsha Andre,Annalisa Cox MD Dec 17, 2016 06:54
[2016-12-17] MEDS ORDERED: KETOROLAC TROMETHAMINE 30 MG/ML (IVP) VIAL IV PUSH ONE (07:00)
[2016-12-17 07:01] LABS: AUTOMATED NEUTROPHIL # 4.8 TH/MM3 (1.8-7.7); BASOPHIL # 0.1 TH/MM3 (0-0.2); BASOPHIL % 0.8 % (0.0-2.0); EOSINOPHIL # 0.3 TH/MM3 (0-0.4); EOSINOPHIL % 3.6 % (0.0-4.0); HEMATOCRIT 35.5 % (39.0-51.0); HEMO FLAGS DIFF FINAL; LYMPH % 19.6 % (9.0-44.0); LYMPHOCYTE # 1.4 TH/MM3 (1.0-4.8); MEAN CELL VOLUME 83.8 FL (80.0-100.0); MEAN CORPUSCULAR HEMOGLOBIN 27.5 PG (27.0-34.0); MEAN CORPUSCULAR HGB CONC 32.9 % (32.0-36.0); MONO % 7.4 % (0.0-8.0); NEUT % 68.6 % (16.0-70.0); PLATELET COUNT 377 TH/MM3 (150-450); RED BLOOD COUNT 4.24 MIL/MM3 (4.50-5.90); RED CELL DISTRIBUTION WIDTH 15.1 % (11.6-17.2)
[2016-12-17 07:22] LABS: BICARBONATE 25.4 MEQ/L (21.0-32.0); POTASSIUM 3.5 MEQ/L (3.5-5.1)
--- NOTE | 2016-12-17 07:37 | RADRPT ---
EXAM DATE/TIME: 12/17/2016 07:08 [facility] COMPARISON: No previous studies available for comparison. INDICATIONS : Neck pain, no recent trauma. RADIATION DOSE: 22.52 CTDIvol (mGy) MEDICAL HISTORY : Stroke. Cardiovascular disease Carcinoma, prostate.Hypertension. SURGICAL HISTORY : None. ENCOUNTER: Initial ACUITY: 1 day PAIN SCALE: 10/10 LOCATION: Bilateral neck TECHNIQUE: Volumetric scanning of the cervical spine was performed. Multiplanar reconstructions in the sagittal, coronal and oblique axial planes were performed. Using automated exposure control and adjustment o f the mA and/or kV according to patient size, radiation dose was kept as low as reasonably achievable to obtain optimal diagnostic quality images. DICOM format image data is available electronically f or review and comparison. FINDINGS: VERTEBRAE: There is vertebral body height loss at the inferior aspect of C5 and superior endplate of C6. There a re irregular endplates at C5-C6. No fracture is identified. ALIGNMENT: There is 3 mm of anterolisthesis of C3 on C4. Focal kyphotic hyperangulation is present at C5-C6. The craniocervical junction and C1-C2 level demonstrate no abnormality. C2-C3: No disc herniation, canal stenosis, or neural foraminal stenosis is present. C3-C4: There is 3 mm of anterolisthesis with severe right facet arthrosis. Mild diffuse disc bulge is presen t. No canal stenosis or left neural foraminal narrowing is present. There is mild right neural forami nal stenosis. C4-C5: There is mild decreased disc height with small diffuse posterior disc osteophyte complex. However, no significant spinal canal stenosis or neural foraminal stenosis is present. C5-C6: There are irregular endplates with disc height loss and there is a diffuse posterior disc osteophyte complex. Canal appears mildly narrowed. There is mild bilateral neural foraminal stenosis. C6-C7: There is decreased disc height with partial fusion between the vertebral bodies. No disc herniation, canal stenosis, or neural foraminal narrowing is present. There is minimal posterior osteophyte. C7-T1: No disc herniation, canal stenosis, or neural foraminal stenosis. Visualized paraspinous structures demonstrate possible prevertebral or retropharyngeal edema/fluid an terior to the C4-C5 level. CONCLUSION: 1. Abnormal C5-C6 level with endplate destruction and irregularity with associated kyphosis. This mario earance is nonspecific but may related to prior infection. Based on the appearance, acute discitis is felt unlikely. However, since there is questionable prevertebral fluid near this level suggest corre lation for any clinical signs of infection. MRI could offer additional characterization, if needed. 2. Partial fusion between C6-C7 possibly related to a similar process has occurred at C5-C6. 3. There is degenerative disease disease at C4-C5 and there is grade one anterolisthesis at C3-C4 sec ondary to right facet arthrosis. Jaylan Mayer MD on December 17, 2016 at 7:28 Board Certified Radiologist. This report was verified electronically.
[2016-12-17] MEDS ORDERED: SODIUM CHLOR 0.9% 1000 ML INJ 1,000 ML IV ONE (08:00)
--- NOTE | 2016-12-17 09:55 | PD ---
Physical Exam Narrative GENERAL: Well-nourished, well-developed patient. SKIN: Warm and dry. HEAD: Normocephalic and atraumatic. EYES: No injection or drainage. ENT: No nasal drainage noted. NECK: Supple, trachea midline. notes pain with movement of neck to lower cervical spine CARDIOVASCULAR: Regular rate and rhythm RESPIRATORY: no increased effort. No accessory muscle use. EXTREMITIES: No edema. NEUROLOGICAL: Awake and alert. Motor and sensory grossly within normal limits. Normal speech. Data Data Last Documented VS Vital Signs Date Time Temp Pulse Resp B/P (MAP) Pulse Ox O2 Delivery O2 Flow Rate FiO2 12/17/16 10:45 53 15 164/74 (104) 98 12/17/16 08:09 97.8 Room Air Orders Orders ^ Saline Lock (12/17/16 06:43) Complete Blood Count With Diff (12/17/16 06:43) Basic Metabolic Panel (Bmp) (12/17/16 06:43) Ct Cerv Spine W/O Contrast (12/17/16 ) Hydromorphone Pf Inj (Dilaudid Pf Inj) (12/17/16 06:45) Ondansetron Inj (Zofran Inj) (12/17/16 06:45) Sodium Chlor 0.9% 1000 Ml Inj (Ns 1000 M (12/17/16 06:45) Ketorolac Inj (Toradol Inj) (12/17/16 07:00) Lactic Acid Sepsis Protocol (12/17/16 07:47) Blood Culture (12/17/16 07:47) Sodium Chlor 0.9% 1000 Ml Inj (Ns 1000 M (12/17/16 08:00) Hydromorphone Pf Inj (Dilaudid Pf Inj) (12/17/16 09:45) Mri C Spine W&W/O Contrast (12/17/16 09:35) Gadobenate Dimeglimine Pf Inj (Multihanc (12/17/16 06:04) NPO (12/17/16 13:10) Admit Order (Ed Use Only) (12/17/16 13:11) Consult Neurosurgery (12/17/16 ) Labs Laboratory Tests Test 12/17/16 06:50 12/17/16 08:19 White Blood Count 7.0 TH/MM3 Red Blood Count 4.24 MIL/MM3 Hemoglobin 11.7 GM/DL Hematocrit 35.5 % Mean Corpuscular Volume 83.8 FL Mean Corpuscular Hemoglobin 27.5 PG Mean Corpuscular Hemoglobin Concent 32.9 % Red Cell Distribution Width 15.1 % Platelet Count 377 TH/MM3 Mean Platelet Volume 7.1 FL Neutrophils (%) (Auto) 68.6 % Lymphocytes (%) (Auto) 19.6 % Monocytes (%) (Auto) 7.4 % Eosinophils (%) (Auto) 3.6 % Basophils (%) (Auto) 0.8 % Neutrophils # (Auto) 4.8 TH/MM3 Lymphocytes # (Auto) 1.4 TH/MM3 Monocytes # (Auto) 0.5 TH/MM3 Eosinophils # (Auto) 0.3 TH/MM3 Basophils # (Auto) 0.1 TH/MM3 CBC Comment DIFF FINAL Differential Comment Blood Urea Nitrogen 30 MG/DL Creatinine 2.07 MG/DL Random Glucose 135 MG/DL Calcium Level 8.7 MG/DL Sodium Level 140 MEQ/L Potassium Level 3.5 MEQ/L Chloride Level 107 MEQ/L Carbon Dioxide Level 25.4 MEQ/L Anion Gap 8 MEQ/L Estimat Glomerular Filtration Rate 33 ML/MIN Lactic Acid Level 1.0 mmol/L MDM Supervised Visit with SHAR: No Interpretation(s) Last 24 hours Impressions [address]ine CT 12/17/16 0000 Signed Impressions: Service Date/Time: November 07:08 - CONCLUSION: 1. Abnormal C5-C6 level with endplate destruction and irregularity with associated kyphosis. This appearance is nonspecific but may related to prior infection. Based on the appearance, acute discitis is felt unlikely. However, since there is questionable prevertebral fluid near this level suggest correlation for any clinical signs of infection. MRI could offer additional characterization, if needed. 2. Partial fusion between C6-C7 possibly related to a similar process has occurred at C5-C6. 3. There is degenerative disease disease at C4-C5 and there is grade one anterolisthesis at C3-C4 secondary to right facet arthrosis. Jaylan Mayer MD Last 24 hours Impressions Cervical Spine MRI 12/17/16 0935 Signed Impressions: Service Date/Time: November 09:58 - CONCLUSION: 1. Extensive marrow edema and enhancement in C5 and C6 with destruction of the disc interspace and some fluid in the area of the disc interspace. Findings are most characteristic of an osteomyelitis probably with a previous associated discitis. Also questionable early involvement of C4 inferiorly and C7 superiorly. There is also edema and inflammation around the posterior elements. There is mild canal stenosis between C4 and C7 but no cord edema identified. No enhancing epidural fluid collections to suggest epidural abscess. Neel Lal MD Cervical Spine CT 12/17/16 0000 Signed Impressions: Service Date/Time: November 07:08 - CONCLUSION: 1. Abnormal C5-C6 level with endplate destruction and irregularity with associated kyphosis. This appearance is nonspecific but may related to prior infection. Based on the appearance, acute discitis is felt unlikely. However, since there is questionable prevertebral fluid near this level suggest correlation for any clinical signs of infection. MRI could offer additional characterization, if needed. 2. Partial fusion between C6-C7 possibly related to a similar process has occurred at C5-C6. 3. There is degenerative disease disease at C4-C5 and there is grade one anterolisthesis at C3-C4 secondary to right facet arthrosis. Jaylan Mayer MD CBC & BMP Diagram 12/17/16 06:50 Calcium Level 8.7 Narrative Course patient updated agrees to mri patient given dilaudid to help with mri imaging Given MRI findings patient will need to be admitted, will discuss with neurosurgeon patient updated, agrees to admit, understands importance of npo Physician Communication Physician Communication dr caicedo states to hold antibiotics and check mri dr caicedo states keep npo, admit to medicine, wait on antibiotics for OR culture resident team agrees to admit Diagnosis Primary Impression: Osteomyelitis of cervical spine Admitting Information Admitting Physician Requests: Admit Margo Maddox MD Dec 17, 2016 09:55
[2016-12-17] MEDS ORDERED: ceFAZolin INJ 1,000 MG VIAL IV ONE ×2 (10:20→19:03)
[2016-12-17] MEDS ORDERED: GLYCOPYRROLATE 1 MG/5 ML SYRINGE IV PUSH ONE (10:20)
[2016-12-17] MEDS ORDERED: PROPOFOL 200 MG/20 ML AMP IV ONE (10:20)
[2016-12-17] MEDS ORDERED: ROCURONIUM INJ 50 MG/5 ML SYRINGE IV PUSH ONE (10:20)
[2016-12-17] MEDS ORDERED: SODIUM CHLORIDE 0.9% 20 ML VIAL IV ONE (10:20)
[2016-12-17] MEDS ORDERED: LIDOCAINE HCL 1% PF 5 ML AMPULE OTHER ONE (10:20)
[2016-12-17] MEDS ORDERED: DEXAMETHASONE SOD PHOS 4 MG/ML VIAL IV ONE (10:20)
[2016-12-17] MEDS ORDERED: hydrALAZINE HCL 20 MG/ML VIAL IV ONE (10:20)
[2016-12-17] MEDS ORDERED: LACTATED RINGER'S 1000 ML INJ 1,000 ML IV ONE (10:20)
[2016-12-17] MEDS ORDERED: NEOSTIGMINE 3 MG/3 ML SYR IV ONE (10:20)
[2016-12-17] MEDS ORDERED: LABETALOL HCL 20 MG/4 ML VIAL IV ONE (10:20)
[2016-12-17] MEDS ORDERED: STERILE WATER FOR INJECTION 20 ML VIAL IV ONE (10:20)
--- NOTE | 2016-12-17 11:01 | RADRPT ---
EXAM DATE/TIME: 12/17/2016 09:58 [facility] COMPARISON: No previous studies available for comparison. INDICATIONS : Osteomyelitis. Severe neck pain. No known injury. Abnormal CT . CONTRAST: 14 cc Multihance (gadobenate) IV MEDICAL HISTORY : Hypertension. Arthritis. Myocardial infarction. SURGICAL HISTORY : Rotator cuff, left. Right arm graft. Bilateral knee surgery. Left ankle surgery. Orbital recon structive surgery. ENCOUNTER: Subsequent ACUITY: 1 day PAIN SCORE: 9/10 LOCATION: NECK TECHNIQUE: Multiplanar, multisequence MRI examination of the cervical spine was performed. FINDINGS: There is extensive abnormal marrow replacement and marrow enhancement in the C5-6 vertebral bodies wi th destruction of the joint space. Findings are most characteristic of an osteomyelitis which may hav e began as a discitis. There is some fluid between the C5 and C6 vertebral bodies. There is some mini mal edema and enhancement also at the inferior endplate of C4 and superior endplate of C7. There is s light reversal of the normal cervical lordosis. There is a mild AP canal stenosis between C4 and C7. There is no significant cord compression. There is slight deflection of the cord posteriorly. No cord edema. There is also some mild edema in the posterior elements around C5 and C6. CONCLUSION: 1. Extensive marrow edema and enhancement in C5 and C6 with destruction of the disc interspace and so me fluid in the area of the disc interspace. Findings are most characteristic of an osteomyelitis pro bably with a previous associated discitis. Also questionable early involvement of C4 inferiorly and C 7 superiorly. There is also edema and inflammation around the posterior elements. There is mild canal stenosis between C4 and C7 but no cord edema identified. No enhancing epidural fluid collections to suggest epidural abscess. Neel Lal MD on December 17, 2016 at 10:46 Board Certified Radiologist. This report was verified electronically.
--- NOTE | 2016-12-17 13:42 | HHI.HP ---
HPI Service Family Medicine Primary Care Physician No Primary Care Physician Admission Diagnosis cervical osteomyelitis Diagnoses: Chief Complaint: neck pain International Travel<30 Days: No Contact w/Intl Traveler<30days: No Known Affected Area: No History of Present Illness Mr Beard is a 61 YO male w/PMHx HTN, CVA, CAD, [place], CAD and tobacco use s/p abscess I&D of right arm requiring vascular repair of right brachial artery with right greater saphenous graft bypass in May 2016 who presents today with at least 4 days of increasing pain in his neck. Pt states pain is incredible and makes him "want to put a gun to his head" it is so bad. Describes pain as throbbing in nature and constant; his PO dilaudid and ibuprofen (lots of ibuprofen) bring pain relief while standing up makes it worse. Pt denies IVDU, CP, SOB, N/D, dizziness, fever, chills, but had nonbloody, nonbilious emesis yesterday x3. MRI of cervical spine shows osteomyelitis of cervical spine; neurosurgery will be performing surgical exploration and bone bx; ID has been consulted. (Kaveh Casiano MD R1) Review of Systems Constitutional: COMPLAINS OF: Night Sweats (neck sweats while sleeping), DENIES : Fever, Weight gain, Weight loss, Chills, Dizziness Eyes: DENIES: Blurred vision, Eye inflammation, Eye pain, Vision loss Ears, nose, mouth, throat: DENIES: Tinnitus, Hearing loss, Running Nose, Epistaxis, Sinus Pain, Toothache Respiratory: DENIES: Cough, Wheezing, Sputum production, Shortness of breath Cardiovascular: DENIES: Chest pain, Palpitations, Syncope Gastrointestinal: COMPLAINS OF: Vomiting (3x yesterday, nonbilious, nonbloody) , DENIES: Abdominal pain, Black stools, Bloody stools, Constipation, Diarrhea, Nausea Genitourinary: DENIES: Urinary incontinence, Urgency, Dysuria Musculoskeletal: COMPLAINS OF: Back pain, Neck pain Integumentary: DENIES: Pruritus, Rash Hematologic/lymphatic: DENIES: Lymphadenopathy Immunologic/allergic: DENIES: Urticaria (Kaveh Casiano MD R1) Past Family Social History Past Medical History Rheumatoid arthritis in remission (last flare 9 years ago) HTN CVA CAD [place] tobacco use PTSD prostate cancer 15 yrs ago -- chemo, interferon, radiation Past Surgical History Pseudoaneurysm post abscess I&D repair with right greater saphenous graft bypass 2016 arthroscopic surgery on both knees left ankle fracture repair ([facility]) Reported Medications Reported Meds & Active Scripts Active Reported Norvasc (Amlodipine Besylate) 5 Mg Tab 5 Mg PO DAILY Lisinopril 10 Mg Tab 10 Mg PO DAILY Dilaudid (Hydromorphone HCl) 8 Mg Tab 8 Mg PO Q6H PRN (Kaveh Casiano MD R1) Allergies: Coded Allergies: simvastatin (Unverified Allergy, Severe, Joint Pain, 11/10/16) COULD NOT TOLERATE STATINS *MDRO Multi-Drug Resistant Organism (Verified Adverse Reaction, Unknown, ) 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 Active Ordered Medications Current Medications Medications (Trade) Dose Ordered Sig/James Route Start Time Stop Time Status Last Admin (Norvasc) 5 mg DAILY PO 12/18/16 09:00 (Dilaudid) 8 mg Q6H PRN PO 12/17/16 14:00 (Prinivil) 10 mg DAILY PO 12/18/16 09:00 (Dilaudid Pf Inj) 1 mg Q2HR PRN IV PUSH 12/17/16 14:00 12/17/16 15:00 Sodium Chloride 1,000 ml @ 110 mls/hr Q9H6M IV 12/17/16 14:54 (NS Flush) 2 ml UNSCH PRN IV FLUSH 12/17/16 15:00 (NS Flush) 2 ml BID IV FLUSH 12/17/16 21:00 (Tylenol) 650 mg Q4H PRN PO 12/17/16 15:00 (Zofran Inj) 4 mg Q6H PRN IVP 12/17/16 15:00 (Narcan Inj) 0.4 mg UNSCH PRN IV PUSH 12/17/16 15:00 (Mary Lou-Colace) 1 tab BID PO 12/17/16 21:00 (Milk Of Magnesia Liq) 30 ml Q12H PRN PO 12/17/16 15:00 (Senokot) 17.2 mg Q12H PRN PO 12/17/16 15:00 (Dulcolax Supp) 10 mg DAILY PRN RECTAL 12/17/16 15:00 (Lactulose Liq) 30 ml DAILY PRN PO 12/17/16 15:00 (Catapres) 0.1 mg Q6H PRN PO 12/17/16 15:15 (Apresoline Inj) 10 mg Q6H PRN IV 12/17/16 15:15 Family History Father: Mother: PNA 23 yrs ago Social History tobacco: 1 cigarette every 3-4 days EtOH: no Drugs: no IVDU, on PO dilaudid for rheumatoid arthritis 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 SKIN: No rashes, ecchymoses or lesions. Cool and dry. HEAD: Atraumatic. Normocephalic. No temporal or scalp tenderness. EYES: Pupils equal round and reactive. Extraocular motions intact. No scleral icterus. No injection or drainage. ENT: Nose without bleeding, purulent drainage or septal hematoma. Poor dentition. Uvula midline. Airway patent. NECK: Trachea midline. No lymphadenopathy. Tender, no meningeal signs. CARDIOVASCULAR: Regular rate and rhythm without murmurs, gallops, or rubs. RESPIRATORY: Clear to auscultation. Breath sounds equal bilaterally. No wheezes , rales, or rhonchi. GASTROINTESTINAL: Abdomen soft, non-tender, nondistended. No hepato-splenomegaly , or palpable masses. No guarding. MUSCULOSKELETAL: Extremities without clubbing, cyanosis, or edema. No joint tenderness, effusion, or edema noted. No calf tenderness. NEUROLOGICAL: Awake and alert. Cranial nerves II through XII intact. Motor and sensory grossly within normal limits. Five out of 5 muscle strength in all muscle groups. Normal speech. Laboratory Laboratory Tests Test 12/17/16 06:50 12/17/16 08:19 White Blood Count 7.0 Red Blood Count 4.24 Hemoglobin 11.7 Hematocrit 35.5 Mean Corpuscular Volume 83.8 Mean Corpuscular Hemoglobin 27.5 Mean Corpuscular Hemoglobin Concent 32.9 Red Cell Distribution Width 15.1 Platelet Count 377 Mean Platelet Volume 7.1 Neutrophils (%) (Auto) 68.6 Lymphocytes (%) (Auto) 19.6 Monocytes (%) (Auto) 7.4 Eosinophils (%) (Auto) 3.6 Basophils (%) (Auto) 0.8 Neutrophils # (Auto) 4.8 Lymphocytes # (Auto) 1.4 Monocytes # (Auto) 0.5 Eosinophils # (Auto) 0.3 Basophils # (Auto) 0.1 CBC Comment DIFF FINAL Differential Comment Blood Urea Nitrogen 30 Creatinine 2.07 Random Glucose 135 Calcium Level 8.7 Sodium Level 140 Potassium Level 3.5 Chloride Level 107 Carbon Dioxide Level 25.4 Anion Gap 8 Estimat Glomerular Filtration Rate 33 Lactic Acid Level 1.0 Date/Time Source Procedure Growth Status 12/17/16 08:15 Blood Peripheral Aerobic Blood Culture Pending Received 12/17/16 08:15 Blood Peripheral Anaerobic Blood Culture Pending Received (Kaveh Casiano MD R1) Result Diagram: 12/17/16 0650 12/17/16 0650 Imaging Last Impressions Cervical Spine MRI 12/17/16 0935 Signed Impressions: Service Date/Time: November 09:58 - CONCLUSION: 1. Extensive marrow edema and enhancement in C5 and C6 with destruction of the disc interspace and some fluid in the area of the disc interspace. Findings are most characteristic of an osteomyelitis probably with a previous associated discitis. Also questionable early involvement of C4 inferiorly and C7 superiorly. There is also edema and inflammation around the posterior elements. There is mild canal stenosis between C4 and C7 but no cord edema identified. No enhancing epidural fluid collections to suggest epidural abscess. Neel Lal MD Cervical Spine CT 12/17/16 0000 Signed Impressions: Service Date/Time: November 07:08 - CONCLUSION: 1. Abnormal C5-C6 level with endplate destruction and irregularity with associated kyphosis. This appearance is nonspecific but may related to prior infection. Based on the appearance, acute discitis is felt unlikely. However, since there is questionable prevertebral fluid near this level suggest correlation for any clinical signs of infection. MRI could offer additional characterization, if needed. 2. Partial fusion between C6-C7 possibly related to a similar process has occurred at C5-C6. 3. There is degenerative disease disease at C4-C5 and there is grade one anterolisthesis at C3-C4 secondary to right facet arthrosis. Jaylan Mayer MD (Kaveh Casiano MD R1) Septic Shock Reassessment Heart: Regular rate and rhythm Lungs: Clear Skin: Cold, Dry Peripheral Pulses: Bounding Right Dorsalis Pedis Bounding Left Dorsalis Pedis Capillary Refill: <2 seconds (Kaveh Casiano MD R1) Caprini VTE Risk Assessment Caprini VTE Risk Assessment: No/Low Risk (score <= 1) VTE Pharm Contraindication: Spinal surgery (Kaveh Casiano MD R1) Assessment and Plan Assessment and Plan 61 YO male with MRI positive for osteomyelitis of cervical spine and epidural abscess ruled out for now. Neurosurgery taking to OR this afternoon for exploration and bone biopsy. ID, Dr Dumont has seen and will start Cefepime and Vancomycin after surgery. Code Status FULL Discussed Condition With Dr Garcia and will be discussed with Dr Becerra (Kaveh Casiano MD R1) Attending Attestation Patient seen and examined. Case reviewed and discussed with the resident team. Agree with plan of care as discussed with me and documented in the resident note. pt seen in ED initially prior to going to his bone biopsy (Nalini Becerra MD) Problem List: (1) Osteomyelitis of cervical spine ICD Codes: M46.22 - Osteomyelitis of vertebra, cervical region Status: Acute Plan: MRI positive for osteomyelitis of cervical spine and negative for epidural abscess -Dr Dumont ID has seen and plan is: --No Abx until after surgery -- then Cefepime and Vancomycin with renal dosing q12h -Hold NPO for surgery this afternoon -Tylenol for fever -Pain control: home dose PO dilaudid 8 mg q6h pain 1-10, dilaudid 1mg IV q2h -Blood cx x2 -Daily CBC, BMP -Monitor vitals (2) SELIN (acute kidney injury) ICD Codes: N17.9 - Acute kidney failure, unspecified Status: Acute Plan: BL Cr 1.5-1.8 in the HH record at 2.07 on admit -- acute on chronic selin -Fluids: NS IVF @ 110 ml/hr -Renal dosing of meds -Monitor labs (3) Hypertension ICD Codes: I10 - Essential (primary) hypertension Status: Acute Plan: Elevated BP on admission to 212/110 with bradycardia to 53 -Continue home Lisinopril 10 mg day -Continue home Norvasc 5 mg day -Start hydralyzine 10 mg PO PRN -Start Clonidine 0.1 mg PRN (4) FEN/GI/PPx Status: Acute Plan: Fluids: NS IVF GI: no PPI indicated; zofran 4 mg IV PRN for nausea Diet: NPO for surgery DVT PPx: SCDs Constipation: Mary Lou-colace, senna PRN OOB ad darinel (Kaveh Casiano MD R1) Physician Certification 2 Midnight Certification Type: Admission for Inpatient Services Order for Inpatient Services The services are ordered in accordance with Medicare regulations or non- Medicare payer requirements, as applicable. In the case of services not specified as inpatient-only, they are appropriately provided as inpatient services in accordance with the 2-midnight benchmark. Estimated LOS (days): 2 2 days is the estimated time the patient will need to remain in the hospital, assuming treatment plan goals are met and no additional complications. Post-Hospital Plan: Home (Kaveh Casiano MD R1) Problem Qualifiers (1) Hypertension: Qualified Codes: I10 - Essential (primary) hypertension Kaveh Casiano MD R1 Dec 17, 2016 13:42 Nalini Becerra MD Dec 18, 2016 14:45
[2016-12-17] MEDS: SODIUM CHLOR 0.9% 1000 ML INJ 1,000 ML IV SCH (14:54)
[2016-12-17] MEDS ORDERED: LACTULOSE SYRUP 20 GM/30 ML CUP PO PRN (15:00)
[2016-12-17] MEDS ORDERED: ACETAMINOPHEN 325 MG TAB PO PRN (15:00)
[2016-12-17] MEDS ORDERED: NALOXONE HCL 0.4 MG/ML AMP IV PUSH PRN (15:00)
[2016-12-17] MEDS ORDERED: SODIUM CHLORIDE 0.9% FLUSH 10 ML FLUSH IV FLUSH PRN (15:00)
[2016-12-17] MEDS ORDERED: BISACODYL 10 MG SUPP RECTAL PRN (15:00)
[2016-12-17] MEDS: HYDROmorphone HCL PF 1 MG/ML VIAL IV PUSH PRN ×2 (15:00→22:13)
[2016-12-17] MEDS ORDERED: cloNIDine HCL 0.1 MG TAB PO PRN (15:15)
[2016-12-17] MEDS ORDERED: hydrALAZINE HCL 20 MG/ML VIAL IV PRN (15:15)
--- NOTE | 2016-12-17 15:41 | PD.ID.CON ---
History of Present Illness Service ID Consult Requested By Dr Mcdonald Reason for Consult C spine osteo Primary Care Physician No Primary Care Physician Diagnoses: History of Present Illness 61 male with h/o necrotizing fasciitis of R forearm in May 2016 s/p sx and antibiotics tx presented today with 2 weeks of new onset neck pain + radiating down BUE denies fever, chills, night sweats No incontinenc no walking issues MRI of C spine showed discitis , osteomyelitis, and no epidural abscess Dr Mcdonald saw the pt and planned to operate Pt has no abx use prior to his surgery (prior to admission and during admission) Review of Systems Musculoskeletal: COMPLAINS OF: Neck pain Except as stated in HPI: all other systems reviewed are Neg Past Family Social History Allergies: Coded Allergies: simvastatin (Unverified Allergy, Severe, Joint Pain, 11/10/16) COULD NOT TOLERATE STATINS *MDRO Multi-Drug Resistant Organism (Verified Adverse Reaction, Unknown, ) 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 Past Medical History Rheumatoid arthritis in remission (last flare 9 years ago) HTN CVA CAD AL tobacco use PTSD prostate cancer 15 yrs ago -- chemo, interferon, radiation Past Surgical History Pseudoaneurysm post abscess I&D repair with right greater saphenous graft bypass 2017 arthroscopic surgery on both knees left ankle fracture repair (ORIF) Active Ordered Medications Medications where reviewed in EMR Antibiotics Include: none Family History reviewed non contributory to current condiotion Social History + tobacco: 1 cigarette every 3-4 days No EtOH: no IVDU, - denies, ever Physical Exam Vital Signs Vital Signs Date Time Temp Pulse Resp B/P (MAP) Pulse Ox O2 Delivery O2 Flow Rate FiO2 12/17/16 15:04 98.3 61 20 212/110 (144) 98 Room Air 12/17/16 13:44 58 25 98 12/17/16 10:45 53 15 164/74 (104) 98 12/17/16 08:09 97.8 54 15 (137) 96 Room Air 12/17/16 06:19 62 18 196/108 (137) Room Air 12/17/16 06:16 59 18 217/105 (142) 97 Physical Exam CONSTITUTIONAL/GENERAL: This is an adequately nourished patient, in no apparent distress. TUBES/LINES/DRAINS: SKIN: No jaundice, rashes, or lesions. Skin temperature appropriate. Not diaphoretic. HEAD: Atraumatic. Normocephalic. EYES: Pupils equal and round and reactive. Extraocular motions intact. No scleral icterus. No injection or drainage. Fundi not examined. ENT: Hearing grossly normal. Nose without bleeding or purulent drainage. Oral mucosae moist without visible erythema, exudates, masses, or lesions. POor denttion NECK: Trachea midline. Supple, +tender. CARDIOVASCULAR: Regular rate and rhythm without murmurs, gallops, or rubs. No JVD. Peripheral pulses symmetric. RESPIRATORY/CHEST: Symmetric, unlabored respirations. Clear to auscultation. Breath sounds equal bilaterally. No wheezes, rales, or rhonchi. GASTROINTESTINAL: Abdomen soft, non-tender, nondistended. No hepato-splenomegaly , or palpable masses. No guarding. Bowel sounds present. GENITOURINARY: Without palpable bladder distension. MUSCULOSKELETAL: Extremities without clubbing, cyanosis, or edema. No joint tenderness or effusion noted. No calf tenderness. No mottling or clubbing. Well healed incision RUE LYMPHATICS: No palpable cervical or supraclavicular adenopathy. NEUROLOGICAL: Awake and alert. Motor and sensory grossly within normal limits. Follows commands. Clear speech . Moves all extremities. PSYCHIATRIC: No obvious anxiety/depression. no apparent hallucinations or other psychotic thought process. Laboratory Laboratory Tests Test 12/17/16 06:50 12/17/16 08:19 White Blood Count 7.0 Red Blood Count 4.24 Hemoglobin 11.7 Hematocrit 35.5 Mean Corpuscular Volume 83.8 Mean Corpuscular Hemoglobin 27.5 Mean Corpuscular Hemoglobin Concent 32.9 Red Cell Distribution Width 15.1 Platelet Count 377 Mean Platelet Volume 7.1 Neutrophils (%) (Auto) 68.6 Lymphocytes (%) (Auto) 19.6 Monocytes (%) (Auto) 7.4 Eosinophils (%) (Auto) 3.6 Basophils (%) (Auto) 0.8 Neutrophils # (Auto) 4.8 Lymphocytes # (Auto) 1.4 Monocytes # (Auto) 0.5 Eosinophils # (Auto) 0.3 Basophils # (Auto) 0.1 CBC Comment DIFF FINAL Differential Comment Blood Urea Nitrogen 30 Creatinine 2.07 Random Glucose 135 Calcium Level 8.7 Sodium Level 140 Potassium Level 3.5 Chloride Level 107 Carbon Dioxide Level 25.4 Anion Gap 8 Estimat Glomerular Filtration Rate 33 Lactic Acid Level 1.0 Date/Time Source Procedure Growth Status 12/17/16 08:15 Blood Peripheral Aerobic Blood Culture Pending Received 12/17/16 08:15 Blood Peripheral Anaerobic Blood Culture Pending Received Result Diagram: 12/17/16 0650 12/17/16 0650 Imaging Last Impressions Cervical Spine MRI 12/17/16 0935 Signed Impressions: Service Date/Time: November 09:58 - CONCLUSION: 1. Extensive marrow edema and enhancement in C5 and C6 with destruction of the disc interspace and some fluid in the area of the disc interspace. Findings are most characteristic of an osteomyelitis probably with a previous associated discitis. Also questionable early involvement of C4 inferiorly and C7 superiorly. There is also edema and inflammation around the posterior elements. There is mild canal stenosis between C4 and C7 but no cord edema identified. No enhancing epidural fluid collections to suggest epidural abscess. Neel aLl MD Cervical Spine CT 12/17/16 0000 Signed Impressions: Service Date/Time: November 07:08 - CONCLUSION: 1. Abnormal C5-C6 level with endplate destruction and irregularity with associated kyphosis. This appearance is nonspecific but may related to prior infection. Based on the appearance, acute discitis is felt unlikely. However, since there is questionable prevertebral fluid near this level suggest correlation for any clinical signs of infection. MRI could offer additional characterization, if needed. 2. Partial fusion between C6-C7 possibly related to a similar process has occurred at C5-C6. 3. There is degenerative disease disease at C4-C5 and there is grade one anterolisthesis at C3-C4 secondary to right facet arthrosis. Jaylan Mayer MD Assessment and Plan Assessment and Plan C spine diskitis, osteo for sx today MSSA cSSTI RUE in May 2016 pt is going to OR will start broad spectrum abx (vanco, cefepime) while op clx are P after specimen obtained fu op clx chk BCx 2 Discussed Condition With Stephenie Bergman,Shayla Noble MD Dec 17, 2016 15:41
[2016-12-17] MEDS ORDERED: LACTATED RINGER'S 1000 ML INJ 1,000 ML ONE (15:57)
[2016-12-17] MEDS ORDERED: THROMBIN (TOPICAL) 5,000 UNIT VIAL ONE (16:04)
[2016-12-17] MEDS ORDERED: GELFOAM SIZE 100 ONE ×2 (16:04→16:08)
[2016-12-17] MEDS ORDERED: GENTAMICIN SULFATE 80 MG/2 ML VIAL ONE (16:05)
[2016-12-17] MEDS ORDERED: LIDOCAINE 2%/EPINEPHrine PF 1:200,000 20ML SDV ONE (16:08)
[2016-12-17] MEDS ORDERED: MIDAZOLAM HCL 2 MG/2 ML VIAL ONE (16:20)
[2016-12-17] MEDS ORDERED: FAMOTIDINE 20 MG/2 ML VIAL ONE (16:20)
[2016-12-17] MEDS ORDERED: SUFentanil INJ 250 MCG/5 ML AMP ONE (17:07)
--- NOTE | 2016-12-17 17:59 | PD.CONS ---
History of Present Illness Service Neurosurgery Consult Requested By Emergency room Primary Care Physician No Primary Care Physician Diagnoses: (1) Osteomyelitis of cervical spine History of Present Illness 61-year-old male previously presented in early May 2016 with a right upper extremity cellulitis. He underwent repair of a right brachial artery pseudoaneurysm by vascular surgery on 05/29/16. Initial cultures grew staph aureus. He was treated with outpatient antibiotics. He states that he has had no significant previous neck pain up until 2 weeks ago. Since then he has experienced progressive severe neck pain without radiation to the upper extremities. He has no complaint of upper or lower extremity pain weakness or numbness. He has a history of chronic low back pain, which she states is a little worse in the past couple of weeks. He denies any fevers chills. He does complain of nausea yesterday. He has been taking at least 1000 mg of Motrin a day to try to control the pain. He presented to the emergency room today due to the persistent pain symptoms. Review of Systems Constitutional: DENIES: Fatigue, Fever, Weight loss Eyes: DENIES: Blurred vision, Diplopia Ears, nose, mouth, throat: DENIES: Hearing loss, Vertigo Respiratory: COMPLAINS OF: Cough, Sputum production, DENIES: Shortness of breath Cardiovascular: DENIES: Chest pain, Palpitations Gastrointestinal: COMPLAINS OF: Nausea, DENIES: Abdominal pain, Diarrhea Musculoskeletal: COMPLAINS OF: Back pain, Neck pain, DENIES: Joint pain, Muscle aches Hematologic/lymphatic: DENIES: Bruising Neurologic: DENIES: Abnormal gait, Headache, Localized weakness, Speech Problems Psychiatric: DENIES: Anxiety, Confusion Past Family Social History Allergies: Coded Allergies: simvastatin (Unverified Allergy, Severe, Joint Pain, 11/10/16) COULD NOT TOLERATE STATINS *MDRO Multi-Drug Resistant Organism (Verified Adverse Reaction, Unknown, ) 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 Past Medical History Hypertension Rheumatoid arthritis History of MRSA Past Surgical History Bilateral knee surgery Surgery for right upper extremity infection May 2016 Right eye surgery Reported Medications Reported Meds & Active Scripts Active Reported Norvasc (Amlodipine Besylate) 5 Mg Tab 5 Mg PO DAILY Lisinopril 10 Mg Tab 10 Mg PO DAILY Dilaudid (Hydromorphone HCl) 8 Mg Tab 8 Mg PO Q6H PRN Family History Positive for diabetes in his mother and father Social History Stop smoking cigarettes heavily at least 10 years ago. States he smokes 1 cigarette every 2 or 3 days now. No alcohol for approximately 10 years. Denies illicit drug use Physical Exam Vital Signs Vital Signs Date Time Temp Pulse Resp B/P (MAP) Pulse Ox O2 Delivery O2 Flow Rate FiO2 12/17/16 15:56 12/17/16 15:04 98.3 61 20 212/110 (144) 98 Room Air 12/17/16 13:44 58 25 98 12/17/16 10:45 53 15 164/74 (104) 98 12/17/16 08:09 97.8 54 15 (137) 96 Room Air 12/17/16 06:19 62 18 196/108 (137) Room Air 12/17/16 06:16 59 18 217/105 (142) 97 Physical Exam GENERAL: This is a normally developed, somewhat disheveled patient, no apparent distress. SKIN: He has scattered areas of abrasion and superficial skin ulcerations throughout the upper extremities. No significant extremity edema. HEAD: Atraumatic. Normocephalic. No temporal or scalp tenderness. EYES: Sclerae are clear and nonicteric ENT: No facial edema or ecchymosis. No periorbital edema. No CSF otorrhea or rhinorrhea. No palpable facial fracture or deformity. NECK: Trachea midline. Mild to moderate cervical spine tenderness. Normal range of motion. No nuchal rigidity. CARDIOVASCULAR: Regular rate and rhythm without murmurs, gallops, or rubs. RESPIRATORY: Clear to auscultation. Breath sounds equal bilaterally. No wheezes , rales, or rhonchi. GASTROINTESTINAL: Abdomen soft, non-tender, nondistended. No hepato-splenomegaly , or palpable masses. No guarding. MUSCULOSKELETAL: Extremities without cyanosis, or edema. No joint tenderness, or edema noted. No calf tenderness. Dorsalis pedis pulses 2+ bilateral NEUROLOGICAL: Awake and alert Oriented X 3 Speech is clear Conversant and appropriate Follow simple commands well Answers questions appropriately Reasonable judgment and insight Recent and remote memory are intact No evidence of anxiety or depression Pupils are equal and reactive to accommodation. Extra-ocular movements, visual welch to confrontation, facial sensorimotor, tongue, palate, sternocleidomastoid testing, hearing to finger rub testing, and bilateral shoulder shrug are all intact. Sensation is intact to light touch in all extremities Strength normal major flexion and extension groups all extremities Sheree's absent bilaterally No ankle clonus Plantar responses absent bilateral Fine motor movements intact upper extremities Laboratory Laboratory Tests Test 12/17/16 06:50 12/17/16 08:19 White Blood Count 7.0 Red Blood Count 4.24 Hemoglobin 11.7 Hematocrit 35.5 Mean Corpuscular Volume 83.8 Mean Corpuscular Hemoglobin 27.5 Mean Corpuscular Hemoglobin Concent 32.9 Red Cell Distribution Width 15.1 Platelet Count 377 Mean Platelet Volume 7.1 Neutrophils (%) (Auto) 68.6 Lymphocytes (%) (Auto) 19.6 Monocytes (%) (Auto) 7.4 Eosinophils (%) (Auto) 3.6 Basophils (%) (Auto) 0.8 Neutrophils # (Auto) 4.8 Lymphocytes # (Auto) 1.4 Monocytes # (Auto) 0.5 Eosinophils # (Auto) 0.3 Basophils # (Auto) 0.1 CBC Comment DIFF FINAL Differential Comment Blood Urea Nitrogen 30 Creatinine 2.07 Random Glucose 135 Calcium Level 8.7 Sodium Level 140 Potassium Level 3.5 Chloride Level 107 Carbon Dioxide Level 25.4 Anion Gap 8 Estimat Glomerular Filtration Rate 33 Lactic Acid Level 1.0 Date/Time Source Procedure Growth Status 12/17/16 08:15 Blood Peripheral Aerobic Blood Culture Pending Received 12/17/16 08:15 Blood Peripheral Anaerobic Blood Culture Pending Received Result Diagram: 12/17/16 0650 12/17/16 0650 Imaging 12/17/16 CT and MRI cervical spine images reviewed by the undersigned. Agree with findings as noted below: There appears to be a possible small prevertebral fluid collection at the C5 6 level. There is soft tissue edema in the mid cervical prevertebral- retropharyngeal region. Cervical Spine MRI 12/17/16 0935 Signed Impressions: Service Date/Time: November 09:58 - CONCLUSION: 1. Extensive marrow edema and enhancement in C5 and C6 with destruction of the disc interspace and some fluid in the area of the disc interspace. Findings are most characteristic of an osteomyelitis probably with a previous associated discitis. Also questionable early involvement of C4 inferiorly and C7 superiorly. There is also edema and inflammation around the posterior elements. There is mild canal stenosis between C4 and C7 but no cord edema identified. No enhancing epidural fluid collections to suggest epidural abscess. Neel Lal MD Cervical Spine CT 12/17/16 0000 Signed Impressions: Service Date/Time: November 07:08 - CONCLUSION: 1. Abnormal C5-C6 level with endplate destruction and irregularity with associated kyphosis. This appearance is nonspecific but may related to prior infection. Based on the appearance, acute discitis is felt unlikely. However, since there is questionable prevertebral fluid near this level suggest correlation for any clinical signs of infection. MRI could offer additional characterization, if needed. 2. Partial fusion between C6-C7 possibly related to a similar process has occurred at C5-C6. 3. There is degenerative disease disease at C4-C5 and there is grade one anterolisthesis at C3-C4 secondary to right facet arthrosis. Jaylan Mayer MD Assessment and Plan Assessment and Plan Impression: 1. Findings are strongly suggestive of C5 6 discitis-osteomyelitis with possible small prevertebral abscess. 2. Hypertension 3. Rheumatoid arthritis Plan: Findings were discussed with infectious disease. Findings discussed with emergency room physician Findings discussed with the patient in detail in the emergency room. Due to the strong likelihood of C5 6 osteomyelitis with possible prevertebral abscess based on his symptoms and imaging studies, surgical debridement of the disc space, possible evacuation of epidural abscess, possible interbody fusion with instrumentation in the event and significant instability recommended. The procedures been discussed in detail. Risk and possible complications have been discussed including the risk of anesthesia, organ failure, stroke, , bleeding, infection, nerve damage, pain, weakness, numbness, paralysis, loss of bowel, bladder or sexual function, spinal fluid leak, failure of instrumentation or fusion. I advised him that it is very likely that further surgical intervention will be necessary in the future after the infection is treated, in the event of development of instability or significant kyphosis or neural compression. Instrumentation or fusion will be performed at the time of this procedure only if there is evidence of significant neural compression or instability, due to the presence of active infection. Consents have been reviewed with the patient , signed and witnessed in the office today. All questions have been answered. He appears to understand the above and wishes to proceed with surgery in the near future. Ricardo Mcdonald MD Dec 17, 2016 17:59
[2016-12-17] MEDS ORDERED: VANCOMYCIN HCL 1000 MG VIAL ONE (18:23)
[2016-12-17] MEDS: D5-1/2 NS + KCL 20 MEQ INJ 1,000 ML IV SCH (19:31)
[2016-12-17] MEDS ORDERED: SODIUM CHLORIDE 0.9% FLUSH 5 ML FLUSH IVF PRN (19:45)
--- NOTE | 2016-12-17 19:47 | PD.OP ---
Operative Report Date of Surgery: Dec 17, 2016 Preoperative Diagnosis: (1) Osteomyelitis of cervical spine C5-6 discitis-osteomyelitis Postoperative Diagnosis: (1) Osteomyelitis of cervical spine C5-6 discitis-osteomyelitis Procedure: C5-6 anterior cervical discectomy, debridement osteomyelitis Anesthesia: Gen. Surgeon: Ricardo Mcdonald Hitting Coach(s): Marco Alonzo Operation and Findings: Findings: Severely degenerative C5-6 disc with significant inflammation and edema of the anterior longitudinal ligament and surrounding longus coli musculature. Moderate bone erosion of the adjacent anterior C5 and C6 vertebral bodies. Procedure in detail: The patient was brought into the operating room and positioned in supine position on the 3080 table with the head and neck in neutral position. Lines were established by Anesthesia. Gen. endotracheal anesthesia was induced without difficulty, taking care not to significantly flex or extend the patient's neck during intubation and positioning. All extremities were appropriately padded. The neck and upper chest were shaved with clippers and sterilely prepped and draped. Appropriate timeout procedure was performed with all personnel present and in agreement 1% Xylocaine with epinephrine was used for local infiltration over the incision site which was made transversely at the left C5 6 level and carried sharply down through the platysma muscle. The exposure was continued medial to the sternocleidomastoid muscle and carotid artery, and lateral to the trachea and esophagus. The prevertebral fascia was elevated away from the anterior longitudinal ligament with a Kitner sponge. The longus coli muscle on each side was elevated with the Del Toro elevator. The appropriate levels were confirmed with intraoperative C-arm and preoperative imaging studies. There was significant inflammation and edema of the anterior longitudinal ligament and longus coli muscles on each side. The 15 blade knife was used to incise a window in the central anterior longitudinal ligament. Upon entering the intervertebral disc space at C5 6, fragments of severely degenerative-desiccated disc material were removed with the pituitary biopsy forceps. The cartilaginous endplate adjacent to the C5 6 level was absent and there was moderate erosion of the central to anterior C5- C6 vertebral bodies adjacent to the endplates. Small fragments of bone were mixed in with the degenerative disc. The findings were consistent with discitis-osteomyelitis. No abscess was noted in the prevertebral or intervertebral disc space. The areas of damage disc and vertebral body were debrided with the curet and the pituitary biopsy forceps. The thin ligament dissector was used to free the posterior longitudinal ligament away from the vertebral body margin, and some retropulsed bone and disc fragments were removed to decompress the anterior canal. The region of the uncovertebral joint and neural foramen on each side was cleared of any debris. The region was well irrigated with antibiotic irrigation. Bleeding was carefully controlled with bipolar forceps and temporary application of Gelfoam and thrombin. The 10 Frisian drain was brought out through a small incision in the left lower neck and secured to the skin with nylon suture and attached to sterile suction. The closure was performed with 3-0 Vicryl running for the platysma and interrupted for the subcutaneous closure, with 4-0 Vicryl running for the subcuticular closure. A dressing of sterile Mastisol, Steri-Strips, and Primapore dressing was placed. The patient was placed into a cervical collar, and taken to recovery room in stable condition. All counts were correct at the end of the case. Estimated blood loss was 25 cc Specimen of the disc and damage vertebral body at the C5 6 level was sent for bacterial, fungal cultures and AFB. . Ricardo Mcdonald MD Dec 17, 2016 19:47
[2016-12-17] MEDS ORDERED: *RESP: ALBUTEROL 2.5 MG/3 ML NEB (PRN) PERIprocedural Use ONLY NEB ONE (19:49)
--- NOTE | 2016-12-17 19:50 | RADRPT ---
EXAM DATE/TIME: 12/17/2016 18:16 [facility] COMPARISON: MRI CERVICAL SPINE W & W/O CONTRAST, December 17, 2016, 9:58. CT CERVICAL SPINE W/O CONTRAST, Slim damon2016, 7:08. INDICATIONS : Post debridement cervical abscess MEDICAL HISTORY : Hypertension. Arthritis. Myocardial infarction. SURGICAL HISTORY : Rotator cuff, left. Right arm graft. Bilateral knee surgery. Left ankle surgery. Orbital reconstructi ve surgery ENCOUNTER: Initial ACUITY: 1 day PAIN SCORE: Non-responsive. LOCATION: Cervical spine FINDINGS: A single lateral view in the operating room shows anterior pointer at C5/C6. CONCLUSION: Pointer is at C5/C6. Jaylan Eid MD on December 17, 2016 at 19:46 Board Certified Radiologist. This report was verified electronically.
[2016-12-17] MEDS ORDERED: PROPOFOL 1000 MG/100 ML INJ 100 ML ONE (19:59)
[2016-12-17] MEDS ORDERED: SUGAMMADEX SODIUM 200 MG/2 ML VIAL IV PUSH ONE ×2 (20:02)
[2016-12-17 20:26] LABS: BLOOD GAS BASE EXCESS -2.6 mmol/L (-2-2); BLOOD GAS HCO3 22 mmol/L (22-26); BLOOD GAS METHEMOGLOBIN 0.9 % (0-2); BLOOD GAS O2 HGB SATURATION 94 % (90-100); BLOOD GAS OXYGEN CONTENT 13.4 Vol % (12.0-20.0); BLOOD GAS PCO2 43 mmHg (38-42); BLOOD GAS PO2 88 mmHg (61-120); BLOOD GAS TOTAL HGB 10.1 G/DL (12.0-16.0); TEMP CORR TO 98.6
[2016-12-17 20:27] LABS: CRITICAL VALUE NO; DRAW SITE ART LINE; LITER FLOW 4 L/M; OXYGEN DEVICE NASAL CANNULA; STAT YES
[2016-12-17] MEDS ORDERED: *HYDROmorphone PF 1 MG VIAL PERIprocedural Use ONLY ONE ×3 (20:27→21:17)
[2016-12-17] MEDS ORDERED: SODIUM CHLORIDE 0.9% FLUSH 10 ML FLUSH IV FLUSH SCH (21:00)
[2016-12-17] MEDS: DOCUSATE SODIUM 50 MG/SENNA 8.6 MG TAB PO SCH (21:00)
[2016-12-17] MEDS: SODIUM CHLORIDE 0.9% FLUSH 5 ML FLUSH IVF SCH (21:00)
[2016-12-17] MEDS ORDERED: Vancomycin Consult Pharmacy 1 EA OTHER SCH (23:00)
[2016-12-17] MEDS ORDERED: CEFEPIME INJ 2,000 MG in SODIUM CHLORIDE 0.9% INJ 100 ML IV SCH (23:00)
[2016-12-17] MEDS: HYDROmorphone HCL 4 MG TAB PO PRN (23:43)
[2016-12-18] VITALS (11 sets, daily range): BP systolic 144–213; BP diastolic 25–99; PULSE 48–79; RESP 12–18; TEMP 97.6–98.2; O2SAT 92–99
[2016-12-18] MEDS: SODIUM CHLOR 0.9% 1000 ML INJ 1,000 ML IV SCH
[2016-12-18] MEDS ORDERED: VANCOMYCIN INJ 1,250 MG in SODIUM CHLOR 0.9% 250 ML INJ 250 ML IV ONE ×2
[2016-12-18] MEDS ORDERED: hydrALAZINE HCL 20 MG/ML VIAL IV PRN (01:00)
[2016-12-18] MEDS: ACETAMINOPHEN 1000 MG/100 ML VIAL IV SCH ×4 (01:00→17:41)
[2016-12-18] MEDS ORDERED: NALOXONE HCL 0.4 MG/ML AMP IV PUSH PRN (01:00)
[2016-12-18] MEDS: HYDROmorphone HCL PF 2 MG/ML VIAL IV PUSH PRN ×9 (01:17→21:50)
[2016-12-18] MEDS: cloNIDine HCL 0.1 MG TAB PO PRN ×2 (01:17→22:37)
[2016-12-18] MEDS: METHOCARBAMOL 500 MG TAB PO PRN ×2 (05:17→13:47)
[2016-12-18] MEDS: D5-1/2 NS + KCL 20 MEQ INJ 1,000 ML IV SCH ×2 (05:17→11:32)
[2016-12-18 05:53] LABS: AUTOMATED NEUTROPHIL # 5.3 TH/MM3 (1.8-7.7); BASOPHIL % 0.3 % (0.0-2.0); EOSINOPHIL % 0.1 % (0.0-4.0); HEMATOCRIT 28.7 % (39.0-51.0); HEMO FLAGS DIFF FINAL; LYMPH % 11.7 % (9.0-44.0); LYMPHOCYTE # 0.7 TH/MM3 (1.0-4.8); MEAN CELL VOLUME 83.1 FL (80.0-100.0); MEAN CORPUSCULAR HEMOGLOBIN 27.3 PG (27.0-34.0); MEAN CORPUSCULAR HGB CONC 32.8 % (32.0-36.0); MONO % 3.9 % (0.0-8.0); PLATELET COUNT 312 TH/MM3 (150-450); RED BLOOD COUNT 3.46 MIL/MM3 (4.50-5.90); RED CELL DISTRIBUTION WIDTH 14.9 % (11.6-17.2); WHITE BLOOD COUNT 6.3 TH/MM3 (4.0-11.0)
[2016-12-18 06:19] LABS: ANION GAP 7 MEQ/L (5-15); AST (GOT) 49 U/L (15-37); BICARBONATE 24.2 MEQ/L (21.0-32.0); BLOOD UREA NITROGEN 24 MG/DL (7-18); CHLORIDE 110 MEQ/L (98-107); GLOMERULAR FILTRATION RATE 42 ML/MIN (>89); SODIUM (NA) 141 MEQ/L (136-145)
[2016-12-18 06:23] LABS: ALKALINE PHOSPHATASE 140 U/L (45-117); ALT (GPT) 61 U/L (12-78); TOTAL BILIRUBIN ADULT 0.2 MG/DL (0.2-1.0)
[2016-12-18] MEDS: HYDROmorphone HCL 4 MG TAB PO PRN (07:53)
[2016-12-18] MEDS ORDERED: HYDROmorphone HCL 4 MG TAB PO PRN (08:15)
[2016-12-18] MEDS: LISINOPRIL 10 MG TAB PO SCH (08:52)
[2016-12-18] MEDS: DOCUSATE SODIUM 50 MG/SENNA 8.6 MG TAB PO SCH ×2 (08:52→20:21)
[2016-12-18] MEDS: SODIUM CHLORIDE 0.9% FLUSH 5 ML FLUSH IVF SCH ×2 (08:52→20:21)
[2016-12-18] MEDS: amLODIPine BESYLATE 5 MG TAB PO SCH (08:52)
--- NOTE | 2016-12-18 10:09 | HHI.NSPN ---
(Ronny Paris) History Chief Complaint: Headache and aches all over. (Ronny Paris) Interval History 12/17: 61-year-old male previously admitted in May 2016 with right upper extremity cellulitis, MRSA. He states that he has had no significant previous neck pain up until 2 weeks ago. Since then he has experienced progressive severe neck pain without radiation to the upper extremities. He has no complaint of upper or lower extremity pain weakness or numbness. He has a history of chronic low back pain, which she states is a little worse in the past couple of weeks. He denies any fevers chills. He does complain of nausea yesterday. He has been taking at least 1000 mg of Motrin a day to try to control the pain. He presented to the emergency room today due to the persistent pain symptoms. The patient was taken for a C5-6 anterior cervical discetomy. Post-operatively he was transferred to the [facility] due to concerns of pupillary changes. 12/18: The patient has done well since admission to the [facility]. This morning when seen he says he is doing good. He does complain of pain to the base of the skull and aching in "the bones." (Ronny Paris) System Review Comments Constitutional: Patient denies any fever or chills. HEENT: Patient complains of pain to the base of the skull. He denies any visual or hearing problems. Respiratory: Patient denies any shortness of breath or productive cough. Cardiovascular: Patient denies any chest pain, palpitations or irregular heartbeat. Gastrointestinal: Patient complains of abdominal pain. He denies any nausea, vomiting or incontinence of stool. Genitourinary: Patient denies any incontinence of urine. Musculoskeletal: Patient complains of aching all over in the bones. Neurologic: Patient complains of headache at the base of the skull. He denies any dizziness, numbness or tingling. (Ronny Paris) Exam Results 12/16/16 12/16/16 12/17/16 12/17/1617 9/22/17 06:00 18:00 06:00 18:00 06:00 18:00 Intake Total 1000 ml 3268 ml Output Total 570 ml Balance 1000 ml 2698 ml Intake Oral 480 ml IV Total 1000 ml 1088 ml Other 1700 ml Output Urine Total 525 ml Drainage Total 20 ml Estimated Blood Loss 25 ml Vital Signs Date Time Temp Pulse Resp B/P (MAP) Pulse Ox O2 Delivery O2 Flow Rate FiO2 12/18/16 08:00 97.9 57 17 176/94 (121) 97 12/18/16 07:00 98 Room Air 12/18/16 06:00 48 12/18/16 04:00 97.6 52 13 148/62 (90) 98 144/68 (93) 12/18/16 04:00 52 12/18/16 02:00 53 12/18/16 00:16 98 12/18/16 00:00 97.6 73 13 167/72 (103) 97 150/77 (101) 12/18/16 00:00 73 12/17/16 22:00 97 Room Air 12/17/16 22:00 97.8 56 15 178/82 (114) 97 Automatic Cuff 12/17/16 22:00 56 12/17/16 21:15 58 20 133/72 (92) 94 Room Air 12/17/16 21:00 57 20 136/76 (96) 94 Room Air 12/17/16 20:45 57 20 151/75 (100) 100 Room Air 12/17/16 20:30 59 20 157/77 (103) 100 Room Air 12/17/16 20:15 61 20 160/72 (101) 96 Simple Mask 6 12/17/16 19:54 98.1 74 20 214/132 (159) 94 Simple Mask 6 12/17/16 15:56 12/17/16 15:04 98.3 61 20 212/110 (144) 98 Room Air 12/17/16 13:44 58 25 98 12/17/16 10:45 53 15 164/74 (104) 98 12/17/16 08:09 97.8 54 15 (137) 96 Room Air 12/17/16 06:19 62 18 196/108 (137) Room Air 12/17/16 06:16 59 18 217/105 (142) 97 (Ronny Paris) Physical Examination GENERAL: Awake & alert, [facility]. Affect normal. NAD. SKIN: Warm & dry. Anterior neck surgical incision w/intact dressing. Multiple scattered abrasions and superficial skin ulcerations to the upper extremities. HEENT: Normocephalic, atraumatic. PERRLA, EOMI. MMM & pink, poor dentition, tongue midline to protrusion. NECK: [place] J cervical collar in place. Intact dressing to anterior surgical incision w/steri-strips intact, NTTP, VANESSA drain to bulb suction w/scant sanguinous drainage. Midline cervical spine mildly TTP. No JVD, trachea midline. CARDIOVASCULAR: S1S2 w/RRR w/o M/G/R, radial & pedal pulses 2+ bilaterally, cap refill < 2 sec, no pedal edema. Monitor is sinus bradycardia to sinus rhythm w/ o any ectopy noted. RESPIRATORY: CTAB w/o W/R/R, equal excursion, nonlaboured, on RA. GASTROINTESTINAL: Abdomen soft, mildly TTP to RUQ, positive bowel sounds. MUSCULOSKELETAL: TRISTAN w/o difficulty, no evident deformity or clubbing. NEUROLOGICAL: AAOx3. Speech clear & appropriate. Follows simple commands w/o difficulty. Sensation intact to light touch to all extremities. Motor strength 5/5 to all extremities except for right deltoid 4+/5 and right hand intrinsics/extrinsics 3/5. The patient does endorse chronic right upper extremity weakness due to a prior stroke and right hand weakness also due to hand fractures from boxing. (Ronny Paris) Lab, Micro, Other Results Recent Impressions Cervical Spine MRI 12/17/16 0935 Signed Impressions: Service Date/Time: November 09:58 - CONCLUSION: 1. Extensive marrow edema and enhancement in C5 and C6 with destruction of the disc interspace and some fluid in the area of the disc interspace. Findings are most characteristic of an osteomyelitis probably with a previous associated discitis. Also questionable early involvement of C4 inferiorly and C7 superiorly. There is also edema and inflammation around the posterior elements. There is mild canal stenosis between C4 and C7 but no cord edema identified. No enhancing epidural fluid collections to suggest epidural abscess. Neel Lal MD Cervical Spine X-Ray 12/17/16 0000 Signed Impressions: Service Date/Time: November 18:16 - CONCLUSION: Pointer is at C5/C6. Jaylan Eid MD Cervical Spine CT 12/17/16 0000 Signed Impressions: Service Date/Time: November 07:08 - CONCLUSION: 1. Abnormal C5-C6 level with endplate destruction and irregularity with associated kyphosis. This appearance is nonspecific but may related to prior infection. Based on the appearance, acute discitis is felt unlikely. However, since there is questionable prevertebral fluid near this level suggest correlation for any clinical signs of infection. MRI could offer additional characterization, if needed. 2. Partial fusion between C6-C7 possibly related to a similar process has occurred at C5-C6. 3. There is degenerative disease disease at C4-C5 and there is grade one anterolisthesis at C3-C4 secondary to right facet arthrosis. Jaylan Mayer MD Laboratory Tests Test 12/17/16 06:50 12/17/16 08:19 12/17/16 20:08 12/17/16 22:00 White Blood Count 7.0 TH/MM3 Red Blood Count 4.24 MIL/MM3 Hemoglobin 11.7 GM/DL Hematocrit 35.5 % Mean Corpuscular Volume 83.8 FL Mean Corpuscular Hemoglobin 27.5 PG Mean Corpuscular Hemoglobin Concent 32.9 % Red Cell Distribution Width 15.1 % Platelet Count 377 TH/MM3 Mean Platelet Volume 7.1 FL Neutrophils (%) (Auto) 68.6 % Lymphocytes (%) (Auto) 19.6 % Monocytes (%) (Auto) 7.4 % Eosinophils (%) (Auto) 3.6 % Basophils (%) (Auto) 0.8 % Neutrophils # (Auto) 4.8 TH/MM3 Lymphocytes # (Auto) 1.4 TH/MM3 Monocytes # (Auto) 0.5 TH/MM3 Eosinophils # (Auto) 0.3 TH/MM3 Basophils # (Auto) 0.1 TH/MM3 CBC Comment DIFF FINAL Differential Comment Blood Urea Nitrogen 30 MG/DL Creatinine 2.07 MG/DL Random Glucose 135 MG/DL Calcium Level 8.7 MG/DL Sodium Level 140 MEQ/L Potassium Level 3.5 MEQ/L Chloride Level 107 MEQ/L Carbon Dioxide Level 25.4 MEQ/L Anion Gap 8 MEQ/L Estimat Glomerular Filtration Rate 33 ML/MIN Lactic Acid Level 1.0 mmol/L Blood Gas Puncture Site ART LINE Blood Gas Patient Temperature 98.6 Blood Gas HCO3 22 mmol/L Blood Gas Base Excess -2.6 mmol/L Blood Gas Oxygen Saturation 94 % Arterial Blood pH 7.34 Arterial Blood Partial Pressure CO2 43 mmHg Arterial Blood Partial Pressure O2 88 mmHg Arterial Blood Oxygen Content 13.4 Vol % Arterial Blood Carboxyhemoglobin 2.0 % Arterial Blood Methemoglobin 0.9 % Blood Gas Hemoglobin 10.1 G/DL Oxygen Delivery Device NASAL CANNULA Blood Gas Liter Flow 4 L/M Nasal Screen MRSA (PCR) MRSA NOT DETECTED Test 12/18/16 05:25 White Blood Count 6.3 TH/MM3 Red Blood Count 3.46 MIL/MM3 Hemoglobin 9.4 GM/DL Hematocrit 28.7 % Mean Corpuscular Volume 83.1 FL Mean Corpuscular Hemoglobin 27.3 PG Mean Corpuscular Hemoglobin Concent 32.8 % Red Cell Distribution Width 14.9 % Platelet Count 312 TH/MM3 Mean Platelet Volume 7.1 FL Neutrophils (%) (Auto) 84.0 % Lymphocytes (%) (Auto) 11.7 % Monocytes (%) (Auto) 3.9 % Eosinophils (%) (Auto) 0.1 % Basophils (%) (Auto) 0.3 % Neutrophils # (Auto) 5.3 TH/MM3 Lymphocytes # (Auto) 0.7 TH/MM3 Monocytes # (Auto) 0.2 TH/MM3 Eosinophils # (Auto) 0.0 TH/MM3 Basophils # (Auto) 0.0 TH/MM3 CBC Comment DIFF FINAL Differential Comment Blood Urea Nitrogen 24 MG/DL Creatinine 1.68 MG/DL Random Glucose 160 MG/DL Total Protein 6.7 GM/DL Albumin 2.1 GM/DL Calcium Level 8.1 MG/DL Alkaline Phosphatase 140 U/L Aspartate Amino Transf (AST/SGOT) 49 U/L Alanine Aminotransferase (ALT/SGPT) 61 U/L Total Bilirubin 0.2 MG/DL Sodium Level 141 MEQ/L Potassium Level 4.0 MEQ/L Chloride Level 110 MEQ/L Carbon Dioxide Level 24.2 MEQ/L Anion Gap 7 MEQ/L Estimat Glomerular Filtration Rate 42 ML/MIN (Ronny Paris) Medical Decision Making Impression and Plan Impression: 1. Findings are strongly suggestive of C5 6 discitis-osteomyelitis with possible small prevertebral abscess. 2. Hypertension 3. Rheumatoid arthritis Postoperative Diagnosis: (1) Osteomyelitis of cervical spine C5-6 discitis-osteomyelitis Cultures in process. Patient is doing well overall and is neurologically intact. He states that he has chronic weakness to the right hand secondary to fractures from boxing as well as some residual weakness from a stroke. POD #1 () s/p: C5-6 anterior cervical discectomy, debridement osteomyelitis Plan: Plan of care discussed with the patient and Nursing. Primary management per Family Medicine. Antibiotics per Infectious Disease. Neuro checks. Maintain cervical collar when HOB is > 30 degrees or when OOB. Diet as tolerated. PT/OT eval & tx. D/C VANESSA drain. Okay to transfer to a regular med/surg floor from NSGY's perspective. (Ronny Paris) Attending Statement I have personally seen and examined the patient on the date of this note. Pertinent documentation and study results have been reviewed by the undersigned. I have personally developed the treatment plan and performed medical decision making. Agree with findings, exam, and treatment plan as noted above. Minimal drain output. Drain discontinued today. Dressing dry and intact No hoarseness of voice or difficulty swallowing No focal upper or lower extremity sensorimotor deficit. No evidence of myelopathy Initial cultures indicate Pseudomonas. Final LORIN pending Continuing antibiotics per infectious disease A mobilized out of bed with brace as tolerated Continue PT as needed (Ricardo Mcdonald MD) Ronny Paris Dec 18, 2016 10:09 Ricardo Mcdonald MD Dec 18, 2016 20:35
--- NOTE | 2016-12-18 10:21 | HHI.HP ---
HPI Service Family Medicine Primary Care Physician No Primary Care Physician Admission Diagnosis cervical osteomyelitis Diagnoses: (1) Osteomyelitis of cervical spine Diagnosis: Principal (2) SELIN (acute kidney injury) Diagnosis: Principal (3) Hypertension Diagnosis: Principal (4) FEN/GI/PPx Diagnosis: Principal International Travel<30 Days: No Contact w/Intl Traveler<30days: No Known Affected Area: No History of Present Illness Mr Beard is a 61 YO male w/PMHx HTN, CVA, CAD, NE, CAD and tobacco use s/p abscess I&D of right arm requiring vascular repair of right brachial artery with right greater saphenous graft bypass in May 2016 who presented with at least 4 days of increasing pain in his neck. Pt stated pain is incredible and makes him "want to put a gun to his head" it is so bad. Describes pain as throbbing in nature and constant; his PO dilaudid and ibuprofen (lots of ibuprofen) bring pain relief while standing up makes it worse. Pt denies IVDU, CP, SOB, N/D, dizziness, fever, chills, but had nonbloody, nonbilious emesis x3. MRI of cervical spine shows osteomyelitis of cervical spine; neurosurgery performed surgical exploration and bone bx; ID has been consulted. He is lying in bed and feeling his pain is reasonably controlled with his home po dilaudid and iv as needed. He is ready to transfer to the floor as he is hemodynamically stable today. Per ID, he needs to continue current abx until 3 days of negative cultures of bone and blood. If he has positive cultures he will likely need a very extended course of weeks of abx. Review of Systems Other Constitutional: COMPLAINS OF: Night Sweats (neck sweats while sleeping), DENIES : Fever, Weight gain, Weight loss, Chills, Dizziness Eyes: DENIES: Blurred vision, Eye inflammation, Eye pain, Vision loss Ears, nose, mouth, throat: DENIES: Tinnitus, Hearing loss, Running Nose, Epistaxis, Sinus Pain, Toothache Respiratory: DENIES: Cough, Wheezing, Sputum production, Shortness of breath Cardiovascular: DENIES: Chest pain, Palpitations, Syncope Gastrointestinal: COMPLAINS OF: Vomiting (3x yesterday, nonbilious, nonbloody) , DENIES: Abdominal pain, Black stools, Bloody stools, Constipation, Diarrhea, Nausea Genitourinary: DENIES: Urinary incontinence, Urgency, Dysuria Musculoskeletal: COMPLAINS OF: Back pain, Neck pain Integumentary: DENIES: Pruritus, Rash Hematologic/lymphatic: DENIES: Lymphadenopathy Immunologic/allergic: DENIES: Urticaria Past Family Social History Past Medical History per pt Rheumatoid arthritis in remission (last flare 9 years ago) (hands look very good) HTN CVA CAD NE tobacco use PTSD prostate cancer 15 yrs ago -- chemo, interferon, radiation Past Surgical History Pseudoaneurysm post abscess I&D repair with right greater saphenous graft bypass 2017 arthroscopic surgery on both knees left ankle fracture repair (ORIF) Allergies: Coded Allergies: simvastatin (Unverified Allergy, Severe, Joint Pain, 11/10/16) COULD NOT TOLERATE STATINS *MDRO Multi-Drug Resistant Organism (Verified Adverse Reaction, Unknown, ) 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 Family History Father: Mother: PNA 23 yrs ago Social History tobacco: 1 cigarette every 3-4 days EtOH: no Drugs: no IVDU, on PO dilaudid for rheumatoid arthritis 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), 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, 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 Physical Exam Vital Signs Vital Signs Date Time Temp Pulse Resp B/P (MAP) Pulse Ox O2 Delivery O2 Flow Rate FiO2 12/18/16 09:05 21 12/18/16 08:00 97.9 57 17 176/94 (121) 97 12/18/16 07:00 98 Room Air 12/18/16 06:00 48 12/18/16 04:00 97.6 52 13 148/62 (90) 98 144/68 (93) 12/18/16 04:00 52 12/18/16 02:00 53 12/18/16 00:16 98 12/18/16 00:00 97.6 73 13 167/72 (103) 97 150/77 (101) 12/18/16 00:00 73 12/17/16 22:00 97 Room Air 12/17/16 22:00 97.8 56 15 178/82 (114) 97 Automatic Cuff 12/17/16 22:00 56 12/17/16 21:15 58 20 133/72 (92) 94 Room Air 12/17/16 21:00 57 20 136/76 (96) 94 Room Air 12/17/16 20:45 57 20 151/75 (100) 100 Room Air 12/17/16 20:30 59 20 157/77 (103) 100 Room Air 12/17/16 20:15 61 20 160/72 (101) 96 Simple Mask 6 12/17/16 19:54 98.1 74 20 214/132 (159) 94 Simple Mask 6 12/17/16 15:56 12/17/16 15:04 98.3 61 20 212/110 (144) 98 Room Air 12/17/16 13:44 58 25 98 12/17/16 10:45 53 15 164/74 (104) 98 Physical Exam GENERAL: This is a well-nourished, well-developed patient, in mild distress. He is more comfortable now with his neck collar restricting movement and change in medicine SKIN: No rashes, ecchymoses or lesions. Cool and dry. HEAD: Atraumatic. Normocephalic. EYES: Pupils equal round and reactive. Extraocular motions intact. No scleral icterus. No injection or drainage. ENT: Nose without bleeding, purulent drainage or septal hematoma. Poor dentition. Uvula midline. Airway patent. NECK: Trachea midline. No lymphadenopathy. Tender, no meningeal signs. CARDIOVASCULAR: Regular rate and rhythm without murmurs, gallops, or rubs. RESPIRATORY: Clear to auscultation. Breath sounds equal bilaterally. No wheezes , rales, or rhonchi. GASTROINTESTINAL: Abdomen soft, non-tender, nondistended. No hepato-splenomegaly , or palpable masses. No guarding. MUSCULOSKELETAL: Extremities without clubbing, cyanosis, or edema. No joint tenderness, effusion, or edema noted. No calf tenderness. NEUROLOGICAL: Awake and alert. Cranial nerves II through XII intact. Motor and sensory grossly within normal limits. Five out of 5 muscle strength in all muscle groups. Normal speech. Laboratory Laboratory Tests Test 12/17/16 20:08 12/17/16 22:00 12/18/16 05:25 Blood Gas Puncture Site ART LINE Blood Gas Patient Temperature 98.6 Blood Gas HCO3 22 Blood Gas Base Excess -2.6 Blood Gas Oxygen Saturation 94 Arterial Blood pH 7.34 Arterial Blood Partial Pressure CO2 43 Arterial Blood Partial Pressure O2 88 Arterial Blood Oxygen Content 13.4 Arterial Blood Carboxyhemoglobin 2.0 Arterial Blood Methemoglobin 0.9 Blood Gas Hemoglobin 10.1 Oxygen Delivery Device NASAL CANNULA Blood Gas Liter Flow 4 Nasal Screen MRSA (PCR) MRSA NOT DETECTED White Blood Count 6.3 Red Blood Count 3.46 Hemoglobin 9.4 Hematocrit 28.7 Mean Corpuscular Volume 83.1 Mean Corpuscular Hemoglobin 27.3 Mean Corpuscular Hemoglobin Concent 32.8 Red Cell Distribution Width 14.9 Platelet Count 312 Mean Platelet Volume 7.1 Neutrophils (%) (Auto) 84.0 Lymphocytes (%) (Auto) 11.7 Monocytes (%) (Auto) 3.9 Eosinophils (%) (Auto) 0.1 Basophils (%) (Auto) 0.3 Neutrophils # (Auto) 5.3 Lymphocytes # (Auto) 0.7 Monocytes # (Auto) 0.2 Eosinophils # (Auto) 0.0 Basophils # (Auto) 0.0 CBC Comment DIFF FINAL Differential Comment Blood Urea Nitrogen 24 Creatinine 1.68 Random Glucose 160 Total Protein 6.7 Albumin 2.1 Calcium Level 8.1 Alkaline Phosphatase 140 Aspartate Amino Transf (AST/SGOT) 49 Alanine Aminotransferase (ALT/SGPT) 61 Total Bilirubin 0.2 Sodium Level 141 Potassium Level 4.0 Chloride Level 110 Carbon Dioxide Level 24.2 Anion Gap 7 Estimat Glomerular Filtration Rate 42 Date/Time Source Procedure Growth Status 12/17/16 08:15 Blood Peripheral Aerobic Blood Culture Pending Received 12/17/16 08:15 Blood Peripheral Anaerobic Blood Culture Pending Received 12/17/16 19:12 Wound Other Fungal Smear Pending Received 12/17/16 19:12 Wound Other Fungal Culture Pending Received Result Diagram: 12/18/16 0525 12/18/16 0525 Imaging Last Impressions Cervical Spine MRI 12/17/16 0935 Signed Impressions: Service Date/Time: November 09:58 - CONCLUSION: 1. Extensive marrow edema and enhancement in C5 and C6 with destruction of the disc interspace and some fluid in the area of the disc interspace. Findings are most characteristic of an osteomyelitis probably with a previous associated discitis. Also questionable early involvement of C4 inferiorly and C7 superiorly. There is also edema and inflammation around the posterior elements. There is mild canal stenosis between C4 and C7 but no cord edema identified. No enhancing epidural fluid collections to suggest epidural abscess. Neel Lal MD Cervical Spine CT 12/17/16 0000 Signed Impressions: Service Date/Time: November 07:08 - CONCLUSION: 1. Abnormal C5-C6 level with endplate destruction and irregularity with associated kyphosis. This appearance is nonspecific but may related to prior infection. Based on the appearance, acute discitis is felt unlikely. However, since there is questionable prevertebral fluid near this level suggest correlation for any clinical signs of infection. MRI could offer additional characterization, if needed. 2. Partial fusion between C6-C7 possibly related to a similar process has occurred at C5-C6. 3. There is degenerative disease disease at C4-C5 and there is grade one anterolisthesis at C3-C4 secondary to right facet arthrosis. Jaylan Mayer MD Septic Shock Reassessment Heart: Regular rate and rhythm Lungs: Clear Skin: Warm, Dry Caprini VTE Risk Assessment Caprini VTE Risk Assessment: No/Low Risk (score <= 1) VTE Pharm Contraindication: Spinal surgery Caprini Risk Assessment Model Point Value = 1 Point Value = 2 Point Value = 3 Point Value = 5 Age 41-60 Minor surgery BMI > 25 kg/m2 Swollen legs Varicose veins or History of unexplained or recurrent spontaneous Oral contraceptives or hormone replacement Sepsis (< 1 month) Serious lung disease, including pneumonia (< 1 month) Abnormal pulmonary function Acute myocardial infarction Congestive heart failure (< 1 month) History of inflammatory bowel disease Medical patient at bed rest Age 61-74 Arthroscopic surgery Major open surgery (> 45 min) Laparoscopic surgery (> 45 min) Malignancy Confined to bed (> 72 hours) Immobilizing plaster cast Central venous access Age >= 75 History of VTE Family history of VTE Factor V Leiden Prothrombin [id number] Lupus anticoagulant Anticardiolipin antibodies Elevated serum homocysteine Heparin-induced thrombocytopenia Other congenital or acquired thrombophilia Stroke (< 1 month) Elective arthroplasty Hip, pelvis, or leg fracture Acute spinal cord injury (< 1 month) Prophylaxis Regimen Total Risk Factor Score Risk Level Prophylaxis Regimen 0-1 Low Early ambulation 2 Moderate Order ONE of the following: *Sequential Compression Device (SCD) *Heparin 5000 units SQ BID 3-4 Higher Order ONE of the following medications: *Heparin 5000 units SQ TID *Enoxaparin/Lovenox 40 mg SQ daily (WT < 150 kg, CrCl > 30 mL/min) *Enoxaparin/Lovenox 30 mg SQ daily (WT < 150 kg, CrCl > 10-29 mL/min) *Enoxaparin/Lovenox 30 mg SQ BID (WT < 150 kg, CrCl > 30 mL/min) AND/OR *Sequential Compression Device (SCD) 5 or more Highest Order ONE of the following medications: *Heparin 5000 units SQ TID (Preferred with Epidurals) *Enoxaparin/Lovenox 40 mg SQ daily (WT < 150 kg, CrCl > 30 mL/min) *Enoxaparin/Lovenox 30 mg SQ daily (WT < 150 kg, CrCl > 10-29 mL/min) *Enoxaparin/Lovenox 30 mg SQ BID (WT < 150 kg, CrCl > 30 mL/min) AND *Sequential Compression Device (SCD) Assessment and Plan Assessment and Plan 61 YO male with MRI positive for osteomyelitis of cervical spine and epidural abscess ruled out for now. Neurosurgery took pt to OR yesterday afternoon for exploration and bone biopsy. ID, Dr Dumont has seen and started Cefepime and Vancomycin after surgery. Problem List: (1) Osteomyelitis of cervical spine ICD Codes: M46.22 - Osteomyelitis of vertebra, cervical region Status: Acute Plan: MRI positive for osteomyelitis of cervical spine and negative for epidural abscess -Dr Dumont ID has seen and plan is: --No Abx until after surgery -- then Cefepime and Vancomycin with renal dosing q12h -Tylenol for fever -Pain control: home dose PO dilaudid 8 mg q6h pain 1-10, dilaudid 1mg IV q2h -Blood cx x2 -Daily CBC, BMP -Monitor vitals -Pseudomonas is growing in the biopsy, not blood cultures to date. will check UDS to be sure he has no other drug use as Pseudomonas is the second most common organism seen in iv drug abusers. he will be positive for opiates as he has been taking them in and out pt. (2) SELIN (acute kidney injury) ICD Codes: N17.9 - Acute kidney failure, unspecified Status: Acute Plan: BL Cr 1.5-1.8 in the HH record at 2.07 on admit -- acute on chronic selin -Fluids: NS IVF @ 110 ml/hr -Renal dosing of meds -Monitor labs (3) Hypertension ICD Codes: I10 - Essential (primary) hypertension Status: Acute Plan: Elevated BP on admission to 212/110 with bradycardia to 53 -Continue home Lisinopril 10 mg day -Continue home Norvasc 5 mg day -Start hydralyzine 10 mg PO PRN -Start Clonidine 0.1 mg PRN improving BPs today, may be pain related as well (4) FEN/GI/PPx Status: Acute Plan: Fluids: NS IVF GI: no PPI indicated; zofran 4 mg IV PRN for nausea Diet: ad darinel DVT PPx: SCDs, consider starting anticoagulation at least 24 hours after surgery Constipation: Mary Lou-colace, senna PRN OOB ad darinel Physician Certification 2 Midnight Certification Type: Admission for Inpatient Services Order for Inpatient Services The services are ordered in accordance with Medicare regulations or non- Medicare payer requirements, as applicable. In the case of services not specified as inpatient-only, they are appropriately provided as inpatient services in accordance with the 2-midnight benchmark. Estimated LOS (days): 5 5 days is the estimated time the patient will need to remain in the hospital, assuming treatment plan goals are met and no additional complications. Post-Hospital Plan: Not yet determined Problem Qualifiers (1) Hypertension: Qualified Codes: I10 - Essential (primary) hypertension Nalini Becerra MD Dec 18, 2016 10:21
[2016-12-18] MEDS: HYDROmorphone HCL 4 MG TAB PO SCH ×4 (10:36→22:37)
[2016-12-18] MEDS: CEFEPIME INJ 2,000 MG in SODIUM CHLORIDE 0.9% INJ 100 ML IV SCH (11:27)
[2016-12-18] MEDS: MAGNESIUM HYDROXIDE SUSP 30 ML CUP PO PRN (13:23)
[2016-12-18] MEDS ORDERED: HYDROmorphone HCL 2 MG TAB PO PRN (16:00)
--- NOTE | 2016-12-18 16:26 | HHI.PR ---
Addendum to Inpatient Note Additional Information Pt seen and examined today Full note to follow growing CLIVE Casiano dc vanco cont cefpeime add Levaquine Shayla Dumont MD Dec 18, 2016 16:26
[2016-12-18] MEDS ORDERED: PILL SPLITTER OTHER PRN (16:45)
--- NOTE | 2016-12-18 19:15 | HHI.IDPN ---
Subjective Subjective Remarks nmo fever sp surgery Growing pseudomonas from the neck wound clx co neck pain Antibiotics vanco cefepime Allergies: Coded Allergies: simvastatin (Unverified Allergy, Severe, Joint Pain, 11/10/16) COULD NOT TOLERATE STATINS *MDRO Multi-Drug Resistant Organism (Verified Adverse Reaction, Unknown, ) 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 Objective . Vital Signs Date Time Temp Pulse Resp B/P (MAP) Pulse Ox O2 Delivery O2 Flow Rate FiO2 12/18/16 16:00 97.8 61 18 180/25 (76) 99 12/18/16 12:04 Arterial Line 12/18/16 12:00 98.1 79 12 152/79 (103) 97 12/18/16 09:05 21 12/18/16 08:00 97.9 57 17 176/94 (121) 97 12/18/16 07:00 98 Room Air 12/18/16 06:00 48 12/18/16 04:00 97.6 52 13 148/62 (90) 98 144/68 (93) 12/18/16 04:00 52 12/18/16 02:00 53 12/18/16 00:16 98 12/18/16 00:00 97.6 73 13 167/72 (103) 97 150/77 (101) 12/18/16 00:00 73 12/17/16 22:00 97 Room Air 12/17/16 22:00 97.8 56 15 178/82 (114) 97 Automatic Cuff 12/17/16 22:00 56 12/17/16 21:15 58 20 133/72 (92) 94 Room Air 12/17/16 21:00 57 20 136/76 (96) 94 Room Air 12/17/16 20:45 57 20 151/75 (100) 100 Room Air 12/17/16 20:30 59 20 157/77 (103) 100 Room Air 12/17/16 20:15 61 20 160/72 (101) 96 Simple Mask 6 12/17/16 19:54 98.1 74 20 214/132 (159) 94 Simple Mask 6 . Laboratory Tests Test 12/17/16 06:50 12/18/16 05:25 White Blood Count 7.0 TH/MM3 6.3 TH/MM3 Red Blood Count 4.24 MIL/MM3 3.46 MIL/MM3 Hemoglobin 11.7 GM/DL 9.4 GM/DL Hematocrit 35.5 % 28.7 % Mean Corpuscular Volume 83.8 FL 83.1 FL Mean Corpuscular Hemoglobin 27.5 PG 27.3 PG Mean Corpuscular Hemoglobin Concent 32.9 % 32.8 % Red Cell Distribution Width 15.1 % 14.9 % Platelet Count 377 TH/MM3 312 TH/MM3 Mean Platelet Volume 7.1 FL 7.1 FL Neutrophils (%) (Auto) 68.6 % 84.0 % Lymphocytes (%) (Auto) 19.6 % 11.7 % Monocytes (%) (Auto) 7.4 % 3.9 % Eosinophils (%) (Auto) 3.6 % 0.1 % Basophils (%) (Auto) 0.8 % 0.3 % Neutrophils # (Auto) 4.8 TH/MM3 5.3 TH/MM3 Lymphocytes # (Auto) 1.4 TH/MM3 0.7 TH/MM3 Monocytes # (Auto) 0.5 TH/MM3 0.2 TH/MM3 Eosinophils # (Auto) 0.3 TH/MM3 0.0 TH/MM3 Basophils # (Auto) 0.1 TH/MM3 0.0 TH/MM3 CBC Comment DIFF FINAL DIFF FINAL Differential Comment Laboratory Tests Test 12/17/16 06:50 12/17/16 08:19 12/18/16 05:25 Blood Urea Nitrogen 30 MG/DL 24 MG/DL Creatinine 2.07 MG/DL 1.68 MG/DL Random Glucose 135 MG/DL 160 MG/DL Calcium Level 8.7 MG/DL 8.1 MG/DL Sodium Level 140 MEQ/L 141 MEQ/L Potassium Level 3.5 MEQ/L 4.0 MEQ/L Chloride Level 107 MEQ/L 110 MEQ/L Carbon Dioxide Level 25.4 MEQ/L 24.2 MEQ/L Anion Gap 8 MEQ/L 7 MEQ/L Estimat Glomerular Filtration Rate 33 ML/MIN 42 ML/MIN Lactic Acid Level 1.0 mmol/L Total Protein 6.7 GM/DL Albumin 2.1 GM/DL Alkaline Phosphatase 140 U/L Aspartate Amino Transf (AST/SGOT) 49 U/L Alanine Aminotransferase (ALT/SGPT) 61 U/L Total Bilirubin 0.2 MG/DL Microbiology Date/Time Source Procedure Growth Status 12/17/16 08:15 Blood Peripheral Aerobic Blood Culture - Preliminary NO GROWTH IN 1 DAY Resulted 12/17/16 08:15 Blood Peripheral Anaerobic Blood Culture - Preliminary NO GROWTH IN 1 DAY Resulted 12/17/16 08:10 Blood Peripheral Aerobic Blood Culture - Preliminary NO GROWTH IN 1 DAY Resulted 12/17/16 08:10 Blood Peripheral Anaerobic Blood Culture - Preliminary NO GROWTH IN 1 DAY Resulted 12/17/16 19:12 Wound Other Fungal Smear - Final NO FUNGAL ELEMENTS SEEN. Resulted 12/17/16 19:12 Wound Other Fungal Culture Pending Resulted 12/17/16 19:12 Wound Other Acid Fast Stain - Final NO ACID FAST BACILLI SEEN Resulted 12/17/16 19:12 Wound Other Mycobacterial Culture Pending Resulted 12/17/16 19:12 Wound Other Gram Stain - Final Resulted 12/17/16 19:12 Wound Culture - Preliminary Pseudomonas Species Resulted 12/17/16 19:10 Wound Other Fungal Smear - Final NO FUNGAL ELEMENTS SEEN. Resulted 12/17/16 19:10 Wound Other Fungal Culture Pending Resulted 12/17/16 19:10 Wound Other Acid Fast Stain - Final NO ACID FAST BACILLI SEEN Resulted 12/17/16 19:10 Wound Other Mycobacterial Culture Pending Resulted 12/17/16 19:10 Wound Other Gram Stain - Final Resulted 12/17/16 19:10 Wound Culture - Preliminary Pseudomonas Species Resulted Imaging Last Impressions Cervical Spine MRI 12/17/16 0935 Signed Impressions: Service Date/Time: November 09:58 - CONCLUSION: 1. Extensive marrow edema and enhancement in C5 and C6 with destruction of the disc interspace and some fluid in the area of the disc interspace. Findings are most characteristic of an osteomyelitis probably with a previous associated discitis. Also questionable early involvement of C4 inferiorly and C7 superiorly. There is also edema and inflammation around the posterior elements. There is mild canal stenosis between C4 and C7 but no cord edema identified. No enhancing epidural fluid collections to suggest epidural abscess. Neel Lal MD Cervical Spine X-Ray 12/17/16 0000 Signed Impressions: Service Date/Time: November 18:16 - CONCLUSION: Pointer is at C5/C6. Jaylan Eid MD Cervical Spine CT 12/17/16 0000 Signed Impressions: Service Date/Time: November 07:08 - CONCLUSION: 1. Abnormal C5-C6 level with endplate destruction and irregularity with associated kyphosis. This appearance is nonspecific but may related to prior infection. Based on the appearance, acute discitis is felt unlikely. However, since there is questionable prevertebral fluid near this level suggest correlation for any clinical signs of infection. MRI could offer additional characterization, if needed. 2. Partial fusion between C6-C7 possibly related to a similar process has occurred at C5-C6. 3. There is degenerative disease disease at C4-C5 and there is grade one anterolisthesis at C3-C4 secondary to right facet arthrosis. Jaylan Mayer MD Physical Exam CONSTITUTIONAL/GENERAL: This is an adequately nourished patient, in no apparent distress. TUBES/LINES/DRAINS: SKIN: No jaundice, rashes, or lesions. NECK: C collar in place CARDIOVASCULAR: Regular rate and rhythm without murmurs, gallops, or rubs. . RESPIRATORY/CHEST: Symmetric, unlabored respirations. Clear to auscultation. GASTROINTESTINAL: Abdomen soft, non-tender, nondistended. Bowel sounds present. MUSCULOSKELETAL: Extremities without clubbing, cyanosis, or edema. NEUROLOGICAL: Awake and alert. Motor and sensory grossly within normal limits. Follows commands. Clear speech . Moves all extremities. PSYCHIATRIC: No obvious anxiety/depression. no apparent hallucinations or other psychotic thought process. Assessment & Plan Remarks C spine diskitis, osteo - s/p surgery - Pseudomonas from clx MSSA cSSTI RUE in May 2016 REC's: d/c vancomycin cont cefepime add lavaquine 2 D echo antici[[place] long terma IV abx Discussed Condition With Dr Stephenie Dumont,Shayla Noble MD Dec 18, 2016 19:15
[2016-12-18 21:53] LABS: HEMOGLOBIN A1b 1.6 %; HEMOGLOBIN Ao 84.5 %; HEMOGLOBIN LA1C 2.5 %; HEMOGLOBIN P3 5.6 %
[2016-12-18] MEDS: SENNOSIDES 8.6 MG TAB PO PRN (22:15)
[2016-12-18] MEDS ORDERED: VANCOMYCIN 1,500 MG/NS 500 ML IV SCH ×2 (23:00)
[2016-12-19] VITALS (15 sets, daily range): BP systolic 177–228; BP diastolic 92–117; PULSE 73–107; RESP 12–27; TEMP 97.6–98.2; O2SAT 92–97
[2016-12-19] MEDS: hydrALAZINE HCL 10 MG TAB PO SCH ×4 (00:13→17:27)
[2016-12-19] MEDS: HYDROmorphone HCL PF 2 MG/ML VIAL IV PUSH PRN ×7 (00:43→20:32)
[2016-12-19] MEDS: HYDROmorphone HCL 4 MG TAB PO SCH ×6 (02:22→22:08)
--- NOTE | 2016-12-19 02:44 | RADRPT ---
EXAM DATE/TIME: 12/19/2016 02:31 [place] COMPARISON: No previous studies available for comparison. INDICATIONS : Hypertension, blurry vision. RADIATION DOSE: 35.38 CTDIvol (mGy) MEDICAL HISTORY : Cerebrovascular disease. Hepatitis C. SURGICAL HISTORY : None. ENCOUNTER: Initial ACUITY: 1 day PAIN SCALE: 0/10 LOCATION: cranial TECHNIQUE: Multiple contiguous axial images were obtained of the head. Using automated exposure control and adj ustment of the mA and/or kV according to patient size, radiation dose was kept as low as reasonably a chievable to obtain optimal diagnostic quality images. DICOM format image data is available electro nically for review and comparison. FINDINGS: CEREBRUM: The ventricles are normal for age. No evidence of midline shift, mass lesion, hemorrhage or acute in farction. No extra-axial fluid collections are seen. Diffuse decreased attenuation in the supratent orial white matter suggests ischemic change. There is a 1 cm oval cystic structure in the anterior i nferior right middle cranial fossa which could represent a prominent inferior sylvian fissure. POSTERIOR FOSSA: The cerebellum and brainstem are intact. The 4th ventricle is midline. The cerebellopontine angle i s unremarkable. EXTRACRANIAL: The visualized portion of the orbits is intact. SKULL: The calvaria is intact. No evidence of skull fracture. CONCLUSION: No acute findings in the brain. Bernabe Nicole MD on December 19, 2016 at 2:39 Board Certified Radiologist. This report was verified electronically.
--- NOTE | 2016-12-19 02:49 | HHI.FPPN ---
Addendum to progress note ADDENDUM Reason for addendum: Additonal documentation Additional information Patient is a 61 year old male with a PMHx of HTN, CVA, CAD, ND, CAD and tobacco use, who is s/p C5-6 anterior cervical discectomy and debridement on post- operative day two. Resident team was paged at 00:18 with regard to patient's elevated blood pressures. Despite receiving 0.1 mg clonidine at 22:37 in addition to pain medication, patient's blood pressure remained in 200s/90s. Nurse informed team that hydralazine IV PRN cannot be given on floor. Order was changed to hydralazine PO PRN. Patient was to receive hydralazine PO as well as scheduled pain medication with follow-up blood pressure check one hour later. Neuro checks with every vital sign check were also ordered. At one hour blood pressure check, patient was found to have blood pressure of 210/104. Resident team was paged. Resident team evaluated patient at bedside. Subjective: Patient reports pain in his neck, at surgery site. Patient denies headaches. He states that he has been experiencing blurry vision in both eyes, worse in right than left, for the past 6 hours. Patient denies chest pain, heart palpitations and shortness of breath. Patient reports constipation; has not had a bowel movement in two days despite laxatives. Patient denies calf tenderness. Objective: Vital signs: Temperature 97.3F, heart rate 69 bpm, blood pressure 231/95, pulse ox 92% on room air. GENERAL: This is a well-nourished, well-developed patient, in no apparent distress. Patient was not wearing a neck collar at time of exam. EYES: Pupils equal round and reactive. Extraocular motions intact. CARDIOVASCULAR: Regular rate and rhythm without murmurs, gallops, or rubs. RESPIRATORY: Clear to auscultation. Breath sounds equal bilaterally. No wheezes , rales, or rhonchi. NEUROLOGICAL: Awake and alert. Cranial nerves II through XII intact. Motor and sensory grossly within normal limits. Five out of 5 muscle strength in all muscle groups. Normal speech. Assessment and Plan: 1. CVA -rule out Imaging: * STAT Head CT - no acute findings in the brain. * STAT EKG pending. * MRI brain without contrast pending. * MRA brain without contrast pending. * US carotid arteries bilaterally pending. * Echo 2-D with Doppler pending. Labs: * Lipid Profile Consult: * Neurology consulted. Nursing Order: * Activity Bed Rest - HOB flat for 12 hours; may elevate HOB 30 degrees for all meals to prevent aspiration; after 12 hours, OOB ad darinel * Neuro checks q2h x12, q4h. * Cardiac telemetry ordered. Medications: * Aspirin 325 mg PO daily. * Heparin 5,000 units SQ q8h. * Nicardipine HCl 25mg/ NaCl infusion - start infusion if blood pressure > 220/ 120 mmHg; blood pressure should lower no more than 15% within first 24 hours. Transfer to ICU necessary to start infusion. 2. HTN Urgency * Due to neurological symptoms, patient treated as if suffered ischemic stroke until workup has been completed. Therefore, see blood pressure management above. 3. Constipation * Day team may consider more aggressive management. Patient was seen, examined and discussed with Dr. Bateman. Aliyah May MD R1 Dec 19, 2016 02:49
[2016-12-19] MEDS: METHOCARBAMOL 500 MG TAB PO PRN (03:11)
[2016-12-19] MEDS: ASPIRIN 325 MG TAB PO SCH ×2 (03:49→09:08)
[2016-12-19] MEDS: MAGNESIUM HYDROXIDE SUSP 30 ML CUP PO PRN ×2 (04:00→07:41)
[2016-12-19] MEDS: niCARdipine INJ 25 MG in SODIUM CHLOR 0.9% 250 ML INJ 250 ML IV PRN ×2 (05:02→12:03)
[2016-12-19] MEDS: HEPARIN SODIUM - SQ 10,000 UNITS/ML VIAL SQ SCH ×3 (05:54→21:59)
[2016-12-19] MEDS: ONDANSETRON HCL 4 MG/2 ML VIAL IVP PRN (06:42)
[2016-12-19] MEDS: SODIUM CHLORIDE 0.9% FLUSH 5 ML FLUSH IVF SCH ×2 (08:13→20:32)
[2016-12-19] MEDS: LISINOPRIL 10 MG TAB PO SCH (09:08)
[2016-12-19] MEDS: LEVOFLOXACIN 750 MG TAB PO SCH (09:08)
[2016-12-19] MEDS: DOCUSATE SODIUM 50 MG/SENNA 8.6 MG TAB PO SCH ×2 (09:08→20:31)
[2016-12-19] MEDS: amLODIPine BESYLATE 5 MG TAB PO SCH (09:09)
--- NOTE | 2016-12-19 09:24 | RADRPT ---
EXAM DATE/TIME: 12/19/2016 08:22 [facility] COMPARISON: No previous studies available for comparison. INDICATIONS : Cerebrovascular accident. MEDICAL HISTORY : Hypertension. Cerebrovascular disease. Arthritis. Emphysema. RA. Hepatic C. SURGICAL HISTORY : Right arm artery surgery. Left shoulder joint replacement. ENCOUNTER: Initial ACUITY: 1 day PAIN SCORE: 0/10 LOCATION: Bilateral neck PEAK SYSTOLIC VELOCITIES (cm/sec): ICA/CCA RATIO: Right: 0.9 Left: 0.8 ICA: Right: 84 Left: 81 CCA: Right: 178 Left: 122 ECA: Right: 133 Left: 133 VERTEBRAL: Right: 55 antegrade Left: 112 antegrade Elevated flow velocities and ICA/CCA ratios have been found to correlate with increased degrees of vessel stenosis, calculated as percentage of diameter relative to a normal segment of distal ICA/CCA FINDINGS: RIGHT CAROTID: There is a mild to moderate severity calcified plaque in the carotid bulb and proximal internal carot id artery. LEFT CAROTID: There is mild to moderate noncalcified plaque throughout the mid common carotid artery. Noncalcified plaque is present in the carotid bulb and proximal internal carotid artery. VERTEBRAL ARTERIES: Antegrade flow is seen in both vertebral arteries. MISCELLANEOUS: None. CONCLUSION: 1. Mild to moderate atherosclerotic plaque bilaterally, as above. However, Doppler assessment indicat es less than 50% stenosis within both internal carotid arteries. 2. There is antegrade flow within both vertebral arteries. Jaylan Mayer MD on December 19, 2016 at 9:21 Board Certified Radiologist. This report was verified electronically.
--- NOTE | 2016-12-19 11:03 | RADRPT ---
EXAM DATE/TIME: 12/19/2016 09:54 [facility] COMPARISON: No previous studies available for comparison. INDICATIONS : Constipation for 3 days MEDICAL HISTORY : Hypertension. Hepatitis C. Carcinoma, prostate. Ulcer SURGICAL HISTORY : None. ENCOUNTER: Initial ACUITY: 3 days PAIN SCORE: 10/10 LOCATION: Bilateral abdomen FINDINGS: 2 supine frontal views of the abdomen demonstrate air within bowel a nonobstructive pattern. There is stool in the right colon and sigmoid colon and there is air distended transverse and descending colo n. No abnormal mass effect is appreciated. There is no organomegaly. Bones demonstrate no acute findi ng. CONCLUSION: Mild gaseous distention of the colon with stool in the right colon. No acute finding is identified. Jaylan Mayer MD on December 19, 2016 at 11:00 Board Certified Radiologist. This report was verified electronically.
[2016-12-19] MEDS: CEFEPIME INJ 2,000 MG in SODIUM CHLORIDE 0.9% INJ 100 ML IV SCH (12:02)
[2016-12-19] MEDS: SENNOSIDES 8.6 MG TAB PO PRN (12:22)
[2016-12-19 12:29] LABS: AUTOMATED NEUTROPHIL # 8.8 TH/MM3 (1.8-7.7); BASOPHIL # 0.1 TH/MM3 (0-0.2); EOSINOPHIL # 0.2 TH/MM3 (0-0.4); EOSINOPHIL % 1.6 % (0.0-4.0); HEMATOCRIT 38.1 % (39.0-51.0); HEMO FLAGS DIFF FINAL; LYMPH % 14.6 % (9.0-44.0); LYMPHOCYTE # 1.6 TH/MM3 (1.0-4.8); MEAN CELL VOLUME 84.2 FL (80.0-100.0); MEAN CORPUSCULAR HEMOGLOBIN 27.2 PG (27.0-34.0); MEAN CORPUSCULAR HGB CONC 32.3 % (32.0-36.0); MONO % 4.8 % (0.0-8.0); PLATELET COUNT 361 TH/MM3 (150-450); RED BLOOD COUNT 4.53 MIL/MM3 (4.50-5.90); RED CELL DISTRIBUTION WIDTH 14.7 % (11.6-17.2); WHITE BLOOD COUNT 11.3 TH/MM3 (4.0-11.0)
--- NOTE | 2016-12-19 12:29 | MB ---
cc: JENNY WALDRON M.D. DATE OF CONSULTATION: 12/19/2016 REASON FOR CONSULTATION: This is a 61-year-old seen in neurological consultation, in regards to some blurriness of vision. HISTORY: The patient was admitted on the with a couple of weeks history of neck pain, found to have C5-C6 osteomyelitis treated with surgery. Last evening the patient developed some visual complaints. The patient seems to be minimizing the symptoms at this point. He is telling me his neck pain was so severe that his blood pressure became markedly elevated and he had some brief blurriness of vision. He is vague about this and feels this has been overemphasized and he feels he had no stroke at all. He feels is completely back to baseline. It is difficult to gather exactly what symptoms. He head but there was no double vision. At some point in the chart is described that he had some blurriness on his right more than left eye and he may have lasted a few hours. The patient has a history of hypertension, coronary artery disease apparent prior history of stroke. He had the abscess on the right arm requiring brachial artery repair and saphenous graft bypass in May of this year. NEUROLOGIC EXAMINATION: The neurologic exam shows him to be alert, somewhat anxious, oriented. Ocular movements and visual welch full. Pupils equal and reactive. I could not see the disks well. There is no facial weakness. Speech is normal. He has good strength in all four limbs on the bedside exam. I saw him ambulating as he was coming out of the bathroom when I walk in. His reflexes were 2+ throughout, plantar responses flexor. LABORATORY FINDINGS: Laboratory data noted. Lipid profile pending. BUN 24, creatinine 1.68, glucose 160, this is from yesterday. WBC 6.3, hemoglobin 9.4 platelets 312 yesterday. RADIOLOGIC: He had a carotid ultrasound today showing mild to moderate plaque with less than 50% stenosis bilaterally. CT brain also from early this morning showing no acute abnormality. Awaiting for an MRI brain, and echocardiogram studies. ASSESSMENT Transient visual symptoms in association with severe neck pain and elevated blood pressure to above 200. Currently being treated for cervical spinal osteomyelitis. He was started on aspirin, pending lipid profile. Difficult to be certain as to this cause of his visual blurriness and even the better syndrome diagnostic assessment due to the nonspecificity and limitation of the symptoms discussed above. Evidentially being admitted as if this is a cerebral vascular event and I agree with that evaluation. Thank you for asking us to assist in his care. I will follow the neurological course. Jenny Waldron MD [facility]/ /10:48 AM /11:55 AM
[2016-12-19] MEDS ORDERED: niCARdipine INJ 25 MG in SODIUM CHLOR 0.9% 250 ML INJ 250 ML IV PRN ×2 (12:30→13:45)
[2016-12-19] MEDS ORDERED: LACTULOSE SYRUP 20 GM/30 ML CUP PO ONE (12:30)
--- NOTE | 2016-12-19 12:31 | HHI.FPPN ---
Subjective Remarks Overnight, patient complained of blurry vision. He was also noted to have elevated blood pressures at that time up to 228/117. There was concern for stroke, and a stroke workup was initiated. However, patient denied any stroke symptoms at any point last night. He reports that he felt scared last night, he was in a lot of pain after the surgery, almost as much pain as when he initially presented, which she says makes him want to put a gun to his head. He was also thinking about his daughter, his abdominal pain, his neck brace and limited range of motion. Patient still complains of persistent blurry vision and abdominal pain and distension. He reports that he has chronic blurry vision of his right eye. Patient does report a h/o a previous stroke with residual deficits that took years before he returned to baseline. Neurology saw patient and recommended continuing stroke work up. (Kirby Garcia MD R2) Objective Vitals Vital Signs Date Time Temp Pulse Resp B/P (MAP) Pulse Ox O2 Delivery O2 Flow Rate FiO2 12/19/16 10:33 34 12/19/16 10:00 90 12/19/16 08:00 90 12/19/16 08:00 97.7 91 12 182/92 (122) 96 12/19/16 07:37 14 12/19/16 07:00 93 12/19/16 07:00 96 Nasal Cannula 3.00 12/19/16 06:00 104 12/19/16 05:02 85 222/105 12/19/16 05:00 97.9 73 16 222/105 (144) 94 12/19/16 03:35 76 228/117 (154) 96 12/19/16 00:55 97.6 73 20 197/98 (131) 92 12/18/16 22:33 67 207/99 (135) 93 12/18/16 22:30 93 21 12/18/16 20:21 Room Air 12/18/16 20:00 98.2 71 18 213/98 (136) 92 12/18/16 16:00 97.8 61 18 180/25 (76) 99 12/18/16 12:04 Arterial Line I/O 12/18/16 12/18/16 12/18/16 12/19/16 12/19/16 12/19/16 07:00 15:00 23:00 07:00 15:00 23:00 Intake Total 1568 ml 0 ml Output Total 545 ml Balance 1023 ml 0 ml Intake Oral 480 ml IV Total 1088 ml Other 0 ml Output Urine Total 525 ml Drainage Total 20 ml (Kirby Garcia MD R2) Result Diagram: 12/18/1625 12/18/16524 Other Results Microbiology Date/Time Source Procedure Growth Status 12/17/16 08:15 Blood Peripheral Aerobic Blood Culture - Preliminary NO GROWTH IN 2 DAYS Resulted 12/17/16 08:15 Blood Peripheral Anaerobic Blood Culture - Preliminary NO GROWTH IN 2 DAYS Resulted 12/17/16 08:10 Blood Peripheral Aerobic Blood Culture - Preliminary NO GROWTH IN 2 DAYS Resulted 12/17/16 08:10 Blood Peripheral Anaerobic Blood Culture - Preliminary NO GROWTH IN 2 DAYS Resulted 12/17/16 19:12 Wound Other Fungal Smear - Final NO FUNGAL ELEMENTS SEEN. Resulted 12/17/16 19:12 Wound Other Fungal Culture Pending Resulted 12/17/16 19:12 Wound Other Acid Fast Stain - Final NO ACID FAST BACILLI SEEN Resulted 12/17/16 19:12 Wound Other Mycobacterial Culture Pending Resulted 12/17/16 19:12 Wound Other Gram Stain - Final Resulted 12/17/16 19:12 Wound Culture - Preliminary Pseudomonas Species Resulted 12/17/16 19:10 Wound Other Fungal Smear - Final NO FUNGAL ELEMENTS SEEN. Resulted 12/17/16 19:10 Wound Other Fungal Culture Pending Resulted 12/17/16 19:10 Wound Other Acid Fast Stain - Final NO ACID FAST BACILLI SEEN Resulted 12/17/16 19:10 Wound Other Mycobacterial Culture Pending Resulted 12/17/16 19:10 Wound Other Gram Stain - Final Resulted 12/17/16 19:10 Wound Culture - Preliminary Pseudomonas Species Resulted Imaging Last Impressions Head CT 12/19/16 0000 Signed Impressions: Service Date/Time: Monday, December 19, 2016 02:31 - CONCLUSION: No acute findings in the brain. Bernabe Nicole MD Carotid Artery Ultrasound 12/19/16 0000 Signed Impressions: Service Date/Time: Monday, December 19, 2016 08:22 - CONCLUSION: 1. Mild to moderate atherosclerotic plaque bilaterally, as above. However, Doppler assessment indicates less than 50%% stenosis within both internal carotid arteries. 2. There is antegrade flow within both vertebral arteries. Jaylan Mayer MD Abdomen X-Ray 12/19/16 0000 Signed Impressions: Service Date/Time: Monday, December 19, 2016 09:54 - CONCLUSION: Mild gaseous distention of the colon with stool in the right colon. No acute finding is identified. Jaylan Mayer MD Cervical Spine MRI 12/17/16 0935 Signed Impressions: Service Date/Time: November 09:58 - CONCLUSION: 1. Extensive marrow edema and enhancement in C5 and C6 with destruction of the disc interspace and some fluid in the area of the disc interspace. Findings are most characteristic of an osteomyelitis probably with a previous associated discitis. Also questionable early involvement of C4 inferiorly and C7 superiorly. There is also edema and inflammation around the posterior elements. There is mild canal stenosis between C4 and C7 but no cord edema identified. No enhancing epidural fluid collections to suggest epidural abscess. Neel Lal MD Cervical Spine X-Ray 12/17/16 0000 Signed Impressions: Service Date/Time: November 18:16 - CONCLUSION: Pointer is at C5/C6. Jaylan Eid MD Cervical Spine CT 12/17/16 0000 Signed Impressions: Service Date/Time: November 07:08 - CONCLUSION: 1. Abnormal C5-C6 level with endplate destruction and irregularity with associated kyphosis. This appearance is nonspecific but may related to prior infection. Based on the appearance, acute discitis is felt unlikely. However, since there is questionable prevertebral fluid near this level suggest correlation for any clinical signs of infection. MRI could offer additional characterization, if needed. 2. Partial fusion between C6-C7 possibly related to a similar process has occurred at C5-C6. 3. There is degenerative disease disease at C4-C5 and there is grade one anterolisthesis at C3-C4 secondary to right facet arthrosis. Jaylan Mayer MD Objective Remarks GENERAL: Well-nourished, well-developed patient. Talkative. SKIN: Warm and dry. HEAD: Normocephalic. EYES: No scleral icterus. No injection or drainage. NECK: Patient with c-collar on and gauze bandage over the anterior neck that is clean, dry, intact. CARDIOVASCULAR: Regular rate and rhythm without murmurs, gallops, or rubs. RESPIRATORY: Breath sounds equal bilaterally. No accessory muscle use. GASTROINTESTINAL: +BS, Abdomen non-tender, but distended +/- guarding EXTREMITIES: No cyanosis, or edema, or calf tenderness. NEUROLOGICAL: Awake, alert, and oriented x 3. Non-focal. Neurological exam is benign: no facial droop, slurred speech, motor and sensation intact bilaterally. Patient has good visual acuity. chronic blurry vision of his right eye c/w exam. (Kirby Garcia MD R2) A/P Assessment and Plan 61 YO male with MRI positive for osteomyelitis of cervical spine and epidural abscess ruled out for now. Neurosurgery took pt to OR on 12/16/16 afternoon for exploration and bone biopsy, growing pseudomonas from culture. ID, Dr Dumont has seen and started Cefepime and Levaquin after surgery. Anticipate long-term IV antibiotics. Early am of 12/19/16, there was c/f CVA in the context of hypertensive urgency, so CVA w/u initiated. Discharge Planning per ID and neurosurgery rec's (Kirby Garcia MD R2) Attending Attestation Patient seen and examined. Case reviewed and discussed with the resident team. Agree with plan of care as discussed with me and documented in the resident note. agree with keeping him on his home dose of meds and adding on top of that. Osteo and a bone biopsy is painful but his pain should improve over a few days with the antibiotics and bone healing. He has Psychiatric problems like PTSD, etc. which may be contributing to his pain (Nalini Becerra MD) Problem List: (1) Osteomyelitis of cervical spine ICD Codes: M46.22 - Osteomyelitis of vertebra, cervical region Status: Acute Plan: MRI positive for osteomyelitis of cervical spine and negative for epidural abscess. Patient is POD #2 s/p C5-6 anterior cervical discectomy, debridement of osteomyelitis () -Neurosurgery consulted and appreciated Neuro checks. Maintain cervical collar when HOB is > 30 degrees or when OOB. PT/OT eval & tx. PT recommends home with no PT D/C VANESSA drain. -ID has seen pt and plan is: Given the patient is growing Pseudomonas from culture, continue cefepime and add Levaquin. Anticipate long-term IV antibiotics 2-D echo -Tylenol for fever -Pain control: Schedule home dose of Dilaudid 8 mg po q6h, Roxicodone for pain 1 -10, dilaudid 2mg IV q2h for breakthrough pain -Blood cx x2 -Daily CBC, BMP -Monitor vitals -Pseudomonas is growing in the biopsy, but not in blood cultures to date. Will check UDS to be sure he has no other drug use as Pseudomonas is the second most common organism seen in iv drug abusers. he will be positive for opiates as he has been taking them in and out pt. (2) Hypertensive urgency ICD Codes: I16.0 - Hypertensive urgency Status: Acute Plan: Patient is persistently hypertensive despite oral medications. There was c/f CVA overnight (12/19 am) -Neurology consult appreciated: continue CVA w/u -Nicardipine drip with goal bp reduction of 15% for goal systolic blood pressure around 200 to allow for permissive HTN -CVA w/u with MRI, MRA, US carotids <50% stenosis, Echocardiogram -HOB flat, blood glucose control, gentle IVF -neuro and vitals checks as above (3) AICHA (acute kidney injury) ICD Codes: N17.9 - Acute kidney failure, unspecified Status: Resolved Plan: BL Cr 1.5-1.8 in the record at 2.07 on admit -- acute on chronic aicha. back to baseline. -Fluids: NS IVF @ 110 ml/hr -Renal dosing of meds when indicated -Monitor labs (4) Abdominal pain ICD Codes: R10.9 - Unspecified abdominal pain Status: Resolved Plan: Abdominal x-ray shows gas and stool in right colon -Simethicone -Lactulose, mary lou-colace -Other anticonstipation medications when necessary (5) Hypertension ICD Codes: I10 - Essential (primary) hypertension Status: Acute Plan: Elevated BP on admission to 212/110 with bradycardia to 53. still HTNive overnight. -nicardipine drip as above -Continue home Lisinopril 10 mg day -Continue home Norvasc 5 mg day -Hydralazine 10 mg PO PRN -Clonidine 0.1 mg PRN improving BPs today, may be pain related as well (6) FEN/GI/PPx Status: Acute Plan: Fluids: NS IVF GI: no PPI indicated; zofran 4 mg IV PRN for nausea Diet: Regular basic DVT PPx: SCDs, consider starting anticoagulation at least 24 hours after surgery Constipation: Mary Lou-colace, senna and other medications PRN Activity: OOB ad darinel (Kirby Garcai MD R2) Problem Qualifiers (1) Hypertension: Qualified Codes: I10 - Essential (primary) hypertension Kirby Garcia MD R2 Dec 19, 2016 12:31 Nalini Becerra MD Dec 21, 2016 11:09
[2016-12-19 13:05] LABS: HDL CHOLESTEROL 36.9 MG/DL (40.0-60.0)
[2016-12-19 13:19] LABS: ALKALINE PHOSPHATASE 196 U/L (45-117); ALT (GPT) 75 U/L (12-78); ANION GAP 7 MEQ/L (5-15); AST (GOT) 65 U/L (15-37); BICARBONATE 29.5 MEQ/L (21.0-32.0); BLOOD UREA NITROGEN 25 MG/DL (7-18); CHLORIDE 103 MEQ/L (98-107); GLOMERULAR FILTRATION RATE 41 ML/MIN (>89); POTASSIUM 3.7 MEQ/L (3.5-5.1); SODIUM (NA) 139 MEQ/L (136-145); TOTAL BILIRUBIN ADULT 0.5 MG/DL (0.2-1.0)
[2016-12-19] MEDS: SIMETHICONE 125 MG CHEWABLE TAB PO SCH ×2 (13:31→20:31)
[2016-12-19] MEDS: SODIUM CHLOR 0.9% 1000 ML INJ 1,000 ML IV SCH (13:43)
[2016-12-19] MEDS ORDERED: GLUCAGON 1 MG/ML VIAL OTHER PRN (13:45)
[2016-12-19] MEDS ORDERED: DEXTROSE 50% IN WATER 50 ML VIAL(D50) IV PUSH PRN (13:45)
--- NOTE | 2016-12-19 15:01 | HHI.PR ---
Addendum to Inpatient Note Additional Information Full note to follow Pt seen today around 1400 pt Xferred back to ICU 2/2 uncontrolled HTN co abd distention No BM co neck pain CT A./P noted dw Shayla Cisneros MD Dec 19, 2016 15:01
--- NOTE | 2016-12-19 15:26 | ECHRPT ---
Indication: cva/tia CONCLUSIONS The left ventricular systolic function is low normal with an estimated ejection fraction in the rang e of 50- 55%. Normal left ventricular size. Moderate concentric left ventricular hypertrophy. Poyqy-js-ship mitral valve regurgitation. There is mild tricuspid valve regurgitation. The estimated pulmonary arterial pressure is 39.2 mmHg. BP: / HR: Rhythm: MEASUREMENTS (Male / Female) Normal Values Technical Quality:Fair 2D ECHO LV Diastolic Diameter PLAX 5.3 cm 4.2 - 5.9 / 3.9 - 5.3 cm LV Systolic Diameter PLAX 4.2 cm IVS Diastolic Thickness 1.5 cm 0.6 - 1.0 / 0.6 - 0.9 cm LVPW Diastolic Thickness 1.2 cm 0.6 - 1.0 / 0.6 - 0.9 cm LV Relative Wall Thickness 0.5 RV Internal Dim ED PLAX 2.9 cm M-MODE Aortic Root Diameter MM 4.0 cm LA Systolic Diameter MM 3.4 cm LA Ao Ratio MM 0.8 AV Cusp Separation MM 2.6 cm DOPPLER Mitral E Point Velocity 88.8 cm/s Mitral A Point Velocity 123.0 cm/s Mitral E to A Ratio 0.7 LV E' Lateral Velocity 6.8 cm/s Mitral E to LV E' Lateral Ratio 13.0 LV E' Septal Velocity 6.2 cm/s Mitral E to LV E' Septal Ratio 14.2 TR Peak Velocity 270.0 cm/s TR Peak Gradient 29.2 mmHg Right Atrial Pressure 10.0 mmHg Pulmonary Artery Systolic Pressu 39.2 mmHg Right Ventricular Systolic Press 39.2 mmHg FINDINGS LEFT VENTRICLE The left ventricular systolic function is low normal with an estimated ejection fraction in the rang e of 50- 55%. Normal left ventricular size. Moderate concentric left ventricular hypertrophy. Doppler parameters are consistent with impaired left ventricular relaxtion (grade 1 diastolic dysfun ction). RIGHT VENTRICLE Normal right ventricular size and systolic function. LEFT ATRIUM The left atrial size is normal. RIGHT ATRIUM The right atrial size is normal. ATRIAL SEPTUM Normal atrial septal thickness without atrial level shunting by limited color doppler interrogation. AORTA The aortic root and proximal ascending aorta are normal in size on limited imaging. MITRAL VALVE Structurally normal mitral valve. Bcnae-iw-pjua mitral valve regurgitation. AORTIC VALVE Trileaflet aortic valve. No aortic valve stenosis or regurgitation. TRICUSPID VALVE Structurally normal tricuspid valve. There is mild tricuspid valve regurgitation. The estimated pulmonary arterial pressure is 39.2 mmHg. PULMONARY VALVE No pulmonary valve regurgitation or stenosis. VESSELS The inferior vena cava is normal in size. PERICARDIUM No pericardial effusion. Blaise Peterson MD (Electronically Signed) Final Date:19 December 2016 15:25
[2016-12-19] MEDS: INSULIN ASPART SUPPLEMENTAL SCALE SQ SCH ×2 (17:00→21:00)
--- NOTE | 2016-12-19 17:14 | RADRPT ---
EXAM DATE/TIME: 12/19/2016 15:25 [facility] COMPARISON: MRI BRAIN W/O CONTRAST, December 03, 2011, 9:45. INDICATIONS : Blurred vision. MEDICAL HISTORY : Hypertension. Arthritis. SURGICAL HISTORY : Discectomy, cervical. Orthopaedic. ENCOUNTER: Initial ACUITY: 1 day PAIN SCORE: 0/10 LOCATION: cranial TECHNIQUE: Multiplanar, multisequence MRI of the brain was performed without contrast. FINDINGS: CEREBRUM: The ventricles are normal for age. No evidence of midline shift, mass lesion, hemorrhage or acute in farction. No extraaxial fluid collections are seen. The pituitary gland and suprasellar cistern are normal in configuration. WHITE MATTER: Extensive increased signal is again noted throughout the deep white matter and periventricular white matter and this has increased mildly the prior study. POSTERIOR FOSSA: The cerebellum and brainstem are intact. The 4th ventricle is midline. The cerebellopontine angle is unremarkable. The cerebellar tonsils are normal in position. DIFFUSION IMAGING: No focal areas of restricted diffusion are seen. No evidence of acute infarction. EXTRACRANIAL: The visualized portions of the orbits are unremarkable. Chronic opacification of the right maxillary sinus is again noted. CONCLUSION: 1. No acute hemorrhage or stroke. 2. Extensive abnormal white matter signal which has progressed mildly since the prior study. 3. Chronic opacification of the right maxillary sinus is again noted. Kirby López MD on December 19, 2016 at 17:10 Board Certified Radiologist. This report was verified electronically.
--- NOTE | 2016-12-19 17:24 | RADRPT ---
EXAM DATE/TIME: 12/19/2016 15:25 [place] COMPARISON: MRA BRAIN W/O CONTRAST, December 03, 2011, 9:45. INDICATIONS : Blurred vision. MEDICAL HISTORY : Hypertension. Arthritis. SURGICAL HISTORY : Discectomy, cervical. Orthopedic. ENCOUNTER: Initial ACUITY: 1 day PAIN SCORE: 0/10 LOCATION: cranial Please note a normal MRA of the brain does not entirely exclude the possibility of a small aneurysm, nor the possibility of distal intracranial vessel disease. TECHNIQUE: 3D time of flight MRA was performed. Source images, multiplanar STS MIP, and 3D volume MIP reconstru ctions were reviewed. FINDINGS: There is excellent visualization of the major intracranial arteries out to the second-order branch ve ssels. There is no evidence for aneurysm, vessel truncation or stenosis, and no evidence for vascula r malformation. CONCLUSION: Unremarkable exam. Kirby López MD on December 19, 2016 at 17:21 Board Certified Radiologist. This report was verified electronically.
[2016-12-19] MEDS: LORazepam 2 MG/ML VIAL IV PUSH PRN (20:38)
[2016-12-19] MEDS: cloNIDine HCL 0.1 MG TAB PO PRN (21:06)
--- NOTE | 2016-12-19 22:25 | HHI.IDPN ---
Subjective Subjective Remarks delayed note Pt seen today around 1400 Event noted pt Xferred back to ICU 2/2 uncontrolled HTN co abd distention No BM co neck pain CT A./P with ileus, no acute pathology Antibiotics cefepime levaquine Allergies: Coded Allergies: simvastatin (Unverified Allergy, Severe, Joint Pain, 11/10/16) COULD NOT TOLERATE STATINS Objective . Vital Signs Date Time Temp Pulse Resp B/P (MAP) Pulse Ox O2 Delivery O2 Flow Rate FiO2 12/19/16 22:11 97 21 12/19/16 22:00 93 12/19/16 21:17 12 12/19/16 20:00 95 12/19/16 20:00 98.2 95 27 185/94 (124) 95 12/19/16 19:00 99 Nasal Cannula 3.00 12/19/16 18:27 22 12/19/16 18:00 88 12/19/16 16:00 96 12/19/16 16:00 98.0 96 24 177/113 (134) 96 12/19/16 15:00 84 12/19/16 14:00 89 12/19/16 12:03 104 188/88 12/19/16 12:00 101 12/19/16 12:00 97.8 107 25 192/98 (129) 92 12/19/16 10:33 34 12/19/16 10:00 90 12/19/16 08:00 90 12/19/16 08:00 97.7 91 12 182/92 (122) 96 12/19/16 07:00 93 12/19/16 07:00 96 Nasal Cannula 3.00 12/19/16 06:00 104 12/19/16 05:02 85 222/105 12/19/16 05:00 97.9 73 16 222/105 (144) 94 12/19/16 03:35 76 228/117 (154) 96 12/19/16 00:55 97.6 73 20 197/98 (131) 92 12/18/16 22:33 67 207/99 (135) 93 12/18/16 22:30 93 21 12/19/16 12/19/16 12/20/16 15:00 23:00 07:00 Intake Total 1332 ml Output Total 275 ml Balance 1057 ml Intake Oral 500 ml IV Total 832 ml Output Urine Total 275 ml . Last Impressions Head Magnetic Resonance Angiography 12/19/16 Signed Impressions: Service Date/Time: Monday, December 19, 2016 15:25 - CONCLUSION: Unremarkable exam. Kirby López MD Head CT 12/19/16 Signed Impressions: Service Date/Time: Monday, December 19, 2016 02:31 - CONCLUSION: No acute findings in the brain. Bernabe Nicole MD Carotid Artery Ultrasound 12/19/16 Signed Impressions: Service Date/Time: Monday, December 19, 2016 08:22 - CONCLUSION: 1. Mild to moderate atherosclerotic plaque bilaterally, as above. However, Doppler assessment indicates less than 50%% stenosis within both internal carotid arteries. 2. There is antegrade flow within both vertebral arteries. Jaylan Mayer MD Brain MRI 12/19/16 Signed Impressions: Service Date/Time: Monday, December 19, 2016 15:25 - CONCLUSION: 1. No acute hemorrhage or stroke. 2. Extensive abnormal white matter signal which has progressed mildly since the prior study. 3. Chronic opacification of the right maxillary sinus is again noted. Kirby López MD Abdomen X-Ray 12/19/16 Signed Impressions: Service Date/Time: Monday, December 19, 2016 09:54 - CONCLUSION: Mild gaseous distention of the colon with stool in the right colon. No acute finding is identified. Jaylan Mayer MD Cervical Spine MRI 12/17/16 0935 Signed Impressions: Service Date/Time: November 09:58 - CONCLUSION: 1. Extensive marrow edema and enhancement in C5 and C6 with destruction of the disc interspace and some fluid in the area of the disc interspace. Findings are most characteristic of an osteomyelitis probably with a previous associated discitis. Also questionable early involvement of C4 inferiorly and C7 superiorly. There is also edema and inflammation around the posterior elements. There is mild canal stenosis between C4 and C7 but no cord edema identified. No enhancing epidural fluid collections to suggest epidural abscess. Neel Lal MD Cervical Spine X-Ray 12/17/16 Signed Impressions: Service Date/Time: November 18:16 - CONCLUSION: Pointer is at C5/C6. Jaylan Eid MD Cervical Spine CT 12/17/16 Signed Impressions: Service Date/Time: November 07:08 - CONCLUSION: 1. Abnormal C5-C6 level with endplate destruction and irregularity with associated kyphosis. This appearance is nonspecific but may related to prior infection. Based on the appearance, acute discitis is felt unlikely. However, since there is questionable prevertebral fluid near this level suggest correlation for any clinical signs of infection. MRI could offer additional characterization, if needed. 2. Partial fusion between C6-C7 possibly related to a similar process has occurred at C5-C6. 3. There is degenerative disease disease at C4-C5 and there is grade one anterolisthesis at C3-C4 secondary to right facet arthrosis. Jaylan Mayer MD Imaging Last Impressions Cervical Spine MRI 12/17/16 0935 Signed Impressions: Service Date/Time: November 09:58 - CONCLUSION: 1. Extensive marrow edema and enhancement in C5 and C6 with destruction of the disc interspace and some fluid in the area of the disc interspace. Findings are most characteristic of an osteomyelitis probably with a previous associated discitis. Also questionable early involvement of C4 inferiorly and C7 superiorly. There is also edema and inflammation around the posterior elements. There is mild canal stenosis between C4 and C7 but no cord edema identified. No enhancing epidural fluid collections to suggest epidural abscess. Neel Lal MD Cervical Spine X-Ray 12/17/16 0000 Signed Impressions: Service Date/Time: November 18:16 - CONCLUSION: Pointer is at C5/C6. Jaylan Eid MD Cervical Spine CT 12/17/16 0000 Signed Impressions: Service Date/Time: November 07:08 - CONCLUSION: 1. Abnormal C5-C6 level with endplate destruction and irregularity with associated kyphosis. This appearance is nonspecific but may related to prior infection. Based on the appearance, acute discitis is felt unlikely. However, since there is questionable prevertebral fluid near this level suggest correlation for any clinical signs of infection. MRI could offer additional characterization, if needed. 2. Partial fusion between C6-C7 possibly related to a similar process has occurred at C5-C6. 3. There is degenerative disease disease at C4-C5 and there is grade one anterolisthesis at C3-C4 secondary to right facet arthrosis. Jaylan Mayer MD Physical Exam CONSTITUTIONAL/GENERAL: This is an adequately nourished patient, in no apparent distress. TUBES/LINES/DRAINS: SKIN: No jaundice, rashes, or lesions. NECK: C collar in place CARDIOVASCULAR: Regular rate and rhythm without murmurs, gallops, or rubs. . RESPIRATORY/CHEST: Symmetric, unlabored respirations. Clear to auscultation. GASTROINTESTINAL: Abdomen soft, mildly to moderately tender, markedly distended. Bowel sounds diminished MUSCULOSKELETAL: Extremities without clubbing, cyanosis, or edema. NEUROLOGICAL: Awake and alert. Motor and sensory grossly within normal limits. Follows commands. Clear speech . Moves all extremities. PSYCHIATRIC: No obvious anxiety/depression. no apparent hallucinations or other psychotic thought process. Assessment & Plan Remarks C spine diskitis, osteo - s/p surgery - Pseudomonas from clx No bactremia 2 D echo w/o vegetations MSSA cSSTI RUE in May 2016 REC's: cont cefepime cont lavaquine 2 D echo antici[monroy long terma IV abx Discussed Condition With Shayla Cisneros MD Dec 19, 2016 22:25
[2016-12-20] VITALS (14 sets, daily range): BP systolic 155–192; BP diastolic 79–101; PULSE 84–95; RESP 11–28; TEMP 97.6–98.7; O2SAT 93–96
[2016-12-20] MEDS: hydrALAZINE HCL 10 MG TAB PO SCH ×4 (00:03→18:20)
[2016-12-20] MEDS: HYDROmorphone HCL PF 2 MG/ML VIAL IV PUSH PRN ×6 (00:24→23:04)
[2016-12-20] MEDS: SODIUM CHLOR 0.9% 1000 ML INJ 1,000 ML IV SCH (00:28)
[2016-12-20] MEDS: hydrALAZINE HCL 20 MG/ML VIAL IV PUSH PRN ×2 (00:42→08:42)
[2016-12-20] MEDS: HYDROmorphone HCL 4 MG TAB PO SCH ×6 (01:46→22:34)
[2016-12-20] MEDS: HEPARIN SODIUM - SQ 10,000 UNITS/ML VIAL SQ SCH ×3 (05:15→21:09)
[2016-12-20] MEDS: SIMETHICONE 125 MG CHEWABLE TAB PO SCH ×3 (05:16→21:09)
[2016-12-20 05:22] LABS: HDL CHOLESTEROL 35.9 MG/DL (40.0-60.0)
[2016-12-20] MEDS: SODIUM CHLORIDE 0.9% FLUSH 5 ML FLUSH IVF SCH ×2 (08:10→21:00)
[2016-12-20] MEDS: LEVOFLOXACIN 750 MG TAB PO SCH (08:10)
[2016-12-20] MEDS: amLODIPine BESYLATE 5 MG TAB PO SCH (08:10)
[2016-12-20] MEDS: DOCUSATE SODIUM 50 MG/SENNA 8.6 MG TAB PO SCH ×2 (08:10→19:41)
[2016-12-20] MEDS: LISINOPRIL 10 MG TAB PO SCH (08:10)
[2016-12-20] MEDS: ASPIRIN 325 MG TAB PO SCH (08:11)
[2016-12-20] MEDS: niCARdipine INJ 25 MG in SODIUM CHLOR 0.9% 250 ML INJ 250 ML IV PRN ×2 (09:17→16:58)
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
[2016-12-20] MEDS: LORazepam 2 MG/ML VIAL IV PUSH PRN ×2 (10:03→21:10)
--- NOTE | 2016-12-20 10:28 | HHI.NSPN ---
(Savannah Almeida) Note Status Status: Progress Note (Savannah Almeida) Interval History Interval History 12/17: 61-year-old male previously admitted in May 2016 with right upper extremity cellulitis, MRSA. He states that he has had no significant previous neck pain up until 2 weeks ago. Since then he has experienced progressive severe neck pain without radiation to the upper extremities. He has no complaint of upper or lower extremity pain weakness or numbness. He has a history of chronic low back pain, which she states is a little worse in the past couple of weeks. He denies any fevers chills. He does complain of nausea yesterday. He has been taking at least 1000 mg of Motrin a day to try to control the pain. He presented to the emergency room today due to the persistent pain symptoms. The patient was taken for a C5-6 anterior cervical discetomy. Post-operatively he was transferred to the [facility] due to concerns of pupillary changes. 12/18: The patient has done well since admission to the [facility]. This morning when seen he says he is doing good. He does complain of pain to the base of the skull and aching in "the bones." 12/20: pt was transferred to [facility] Wednesday evening due to vision changes, Neurology consulted. MRI Brain neg for acute CVA. Patient on cardene for bp control. c/ o persistent severe cervical pain. denies new sx to extremities, he is ambulating (Savannah Almeida) Labs, Micro, & Vital Signs Results Date Time Temp Pulse Resp B/P (MAP) Pulse Ox O2 Delivery O2 Flow Rate FiO2 12/20/16 09:17 76 213/90 12/20/16 08:00 98.7 86 11 182/79 (113) 96 12/20/16 08:00 86 12/20/16 07:49 96 21 12/20/16 07:19 10 12/20/16 07:00 96 Room Air 12/20/16 06:00 87 12/20/16 04:00 98.5 93 12 192/93 (126) 93 12/20/16 04:00 93 12/20/16 03:47 11 12/20/16 02:00 95 12/20/16 00:03 15 12/20/16 00:00 98.3 84 28 187/101 (129) 95 12/20/16 00:00 84 12/19/16 22:11 97 21 12/19/16 22:00 93 12/19/16 20:00 95 12/19/16 20:00 98.2 95 27 185/94 (124) 95 12/19/16 19:00 99 Nasal Cannula 3.00 12/19/16 18:00 88 12/19/16 16:00 96 12/19/16 16:00 98.0 96 24 177/113 (134) 96 12/19/16 15:00 84 12/19/16 14:00 89 12/19/16 12:03 104 188/88 12/19/16 12:00 101 12/19/16 12:00 97.8 107 25 192/98 (129) 92 12/19/16 10:33 34 Constitutional Vital Signs Date Time Temp Pulse Resp B/P (MAP) Pulse Ox O2 Delivery O2 Flow Rate FiO2 12/20/16 09:17 76 213/90 12/20/16 08:00 98.7 86 11 182/79 (113) 96 12/20/16 08:00 86 12/20/16 07:49 96 21 12/20/16 07:19 10 12/20/16 07:00 96 Room Air 12/20/16 06:00 87 12/20/16 04:00 98.5 93 12 192/93 (126) 93 12/20/16 04:00 93 12/20/16 03:47 11 12/20/16 02:00 95 12/20/16 00:03 15 12/20/16 00:00 98.3 84 28 187/101 (129) 95 12/20/16 00:00 84 12/19/16 22:11 97 21 12/19/16 22:00 93 12/19/16 20:00 95 12/19/16 20:00 98.2 95 27 185/94 (124) 95 12/19/16 19:00 99 Nasal Cannula 3.00 12/19/16 18:00 88 12/19/16 16:00 96 12/19/16 16:00 98.0 96 24 177/113 (134) 96 12/19/16 15:00 84 12/19/16 14:00 89 12/19/16 12:03 104 188/88 12/19/16 12:00 101 12/19/16 12:00 97.8 107 25 192/98 (129) 92 12/19/16 10:33 34 (Savannah Almeida) Review of Systems Constitutional: DENIES: Fever, Chills Eyes: COMPLAINS OF: Blurred vision Respiratory: DENIES: Apneas Cardiovascular: DENIES: Chest pain Genitourinary: DENIES: Urinary incontinence Musculoskeletal: COMPLAINS OF: Neck pain Neurologic: DENIES: Seizures (Savannah Almeida) Physical Exam Alert, oriented x 3. Anxious due to his current disability. Speech is fluent. Follows commands without apraxia. Surgical wound with dressing in place. Neck: immobilized with [place] collar CN: pupils equal, facial motor symmetric. Tongue midline. Motor: moves all major muscle groups of both upper and lower extremities well, decreased fine motor movement to hands. (Savannah Almeida) Medications Current Medications Current Medications Medications (Trade) Dose Ordered Sig/James Route PRN Reason Start Time Stop Time Status Last Admin Dose Admin Amlodipine Besylate (Norvasc) 5 mg DAILY PO 12/18/16 09:00 12/20/16 08:10 Lisinopril (Prinivil) 10 mg DAILY PO 12/18/16 09:00 12/20/16 08:10 Acetaminophen (Tylenol) 650 mg Q4H PRN PO TEMP > 100.4 12/17/16 15:00 Ondansetron HCl (Zofran Inj) 4 mg Q6H PRN IVP NAUSEA OR VOMITING 12/17/16 15:00 12/19/16 06:42 Senna/Docusate Sodium (Mary Lou-Colace) 1 tab BID PO 12/17/16 21:00 12/20/16 08:10 Magnesium Hydroxide (Milk Of Magnesia Liq) 30 ml Q12H PRN PO MILD - MODERATE CONSTIPATION 12/17/16 15:00 12/19/16 07:41 Sennosides (Senokot) 17.2 mg Q12H PRN PO MODERATE - SEVERE CONSTIPATION 12/17/16 15:00 12/19/16 12:22 Bisacodyl (Dulcolax Supp) 10 mg DAILY PRN RECTAL SEVERE CONSITIPATION 12/17/16 15:00 Lactulose (Lactulose Liq) 30 ml DAILY PRN PO SEVERE CONSITIPATION 12/17/16 15:00 12/18/16 16:45 IV Flush (NS Flush) 2 ml UNSCH PRN IVF FLUSH AFTER USING IV ACCESS 12/17/16 19:45 IV Flush (NS Flush) 2 ml BID IVF 12/17/16 21:00 12/20/16 08:10 Methocarbamol (Robaxin) 500 mg Q8HR PRN PO SPASM 12/17/16 20:45 12/19/16 03:11 Clonidine (Catapres) 0.1 mg Q1H PRN PO SEE LABEL COMMENTS 12/18/16 00:45 12/19/16 21:06 Naloxone HCl (Narcan Inj) 0.4 mg UNSCH PRN IV PUSH SEE LABEL COMMENTS 12/18/16 01:00 Oxycodone HCl (Roxicodone) 5 mg Q4H PRN PO PAIN SCALE 1 TO 5 12/18/16 08:15 Oxycodone HCl (Roxicodone) 10 mg Q4H PRN PO PAIN SCALE 6 TO 10 12/18/16 08:15 12/20/16 08:10 Hydromorphone HCl (Dilaudid) 8 mg Q4H PO 12/18/16 10:00 12/20/16 10:02 Cefepime HCl 2000 mg/Sodium Chloride 100 ml @ 200 mls/hr Q24H IV 12/18/16 12:00 12/19/16 12:02 Miscellaneous Information SPECIFIC LAB TO BE GEOVANI... ONCE ONCE .XX 12/20/16 22:45 12/20/16 22:46 Levofloxacin (Levaquin) 750 mg DAILY PO 12/19/16 09:00 12/20/16 08:10 Hydralazine HCl (Apresoline) 10 mg Q6HR PO 12/19/16 00:00 12/20/16 05:16 Aspirin (Aspirin) 325 mg DAILY PO 12/19/16 03:00 12/20/16 08:11 Heparin Sodium (Porcine) (Heparin Inj) 5,000 units Q8HR SQ 12/19/16 06:00 12/20/16 05:15 Hydromorphone HCl (Dilaudid Pf Inj) 2 mg Q2HR PRN IV PUSH BREAKTHROUGH PAIN 12/19/16 12:15 12/20/16 07:24 Lorazepam (Ativan Inj) 1 mg Q2H PRN IV PUSH anxiety 12/19/16 12:15 12/20/16 10:03 Simethicone (Phazyme Chew) 125 mg Q8HR PO 12/19/16 14:00 12/20/16 05:16 Sodium Chloride 1,000 ml @ 70 mls/hr [id number] IV 12/19/16 13:43 12/20/16 00:28 Dextrose (D50w (Vial) Inj) 50 ml UNSCH PRN IV PUSH HYPOGLYCEMIA-SEE COMMENTS 12/19/16 13:45 Glucagon (Glucagon Inj) 1 mg UNSCH PRN OTHER HYPOGLYCEMIA-SEE COMMENTS 12/19/16 13:45 Hydralazine HCl (Apresoline Inj) 10 mg Q6H PRN IV PUSH SBP> OR = 180, DBP> OR = 100 12/19/16 22:30 12/20/16 08:42 Nicardipine HCl 25 mg/Sodium Chloride 260 ml @ 52 mls/hr TITRATE PRN IV Maintain BP goal 12/20/16 09:00 12/20/16 09:17 (Savannah Almeida) Medical Decision Making MDM Remarks 61 y/o male with 1. C5 6 discitis-osteomyelitis with possible small prevertebral abscess s/p C5- 6 ACD, debridement osteomyelitis. neuro exam stable, ambulating, persistent cervical pain 2. Hypertension 3. Rheumatoid arthritis (Savannah Almeida) Plan Plan Remarks cont antibiotics per Infectious Disease cont OT, PT maintain cervical collar dressing changes - dw nursing cont pain control cont medical management - bp control (Savannah Almeida) Attending Statement The patient tolerated the procedure well without complication. The exam, history , and the medical decision-making described in the above note were completed with the assistance of the mid-level provider. I reviewed and agree with the findings presented. I attest that I had a [id number] encounter with the patient on the same day, and personally performed and documented my assessment and findings in the medical record. (AdamDanny godinez Margaux A. PA Dec 20, 2016 10:28 Danny Medina MD Dec 20, 2016 20:53
[2016-12-20 11:59] LABS: HEMATOCRIT 34.9 % (39.0-51.0); MEAN CORPUSCULAR HEMOGLOBIN 28.1 PG (27.0-34.0); MEAN CORPUSCULAR HGB CONC 33.8 % (32.0-36.0); PLATELET COUNT 277 TH/MM3 (150-450); RED BLOOD COUNT 4.21 MIL/MM3 (4.50-5.90); RED CELL DISTRIBUTION WIDTH 14.9 % (11.6-17.2); REVIEW FLAG FINAL; WHITE BLOOD COUNT 9.4 TH/MM3 (4.0-11.0)
[2016-12-20] MEDS: CEFEPIME INJ 2,000 MG in SODIUM CHLORIDE 0.9% INJ 100 ML IV SCH (12:00)
[2016-12-20 12:13] LABS: BICARBONATE 27.5 MEQ/L (21.0-32.0); POTASSIUM 3.9 MEQ/L (3.5-5.1)
[2016-12-20] MEDS ORDERED: amLODIPine BESYLATE 5 MG TAB PO ONE (14:15)
[2016-12-20] MEDS ORDERED: PHARMACY ORDERED LAB ONE (22:45)
[2016-12-21] VITALS (14 sets, daily range): BP systolic 157–172; BP diastolic 81–92; PULSE 76–97; RESP 11–23; TEMP 97.5–98.2; O2SAT 90–98
[2016-12-21] MEDS: ONDANSETRON HCL 4 MG/2 ML VIAL IVP PRN
[2016-12-21] MEDS: LORazepam 2 MG/ML VIAL IV PUSH PRN (00:13)
[2016-12-21] MEDS: hydrALAZINE HCL 10 MG TAB PO SCH ×3 (00:13→11:06)
[2016-12-21] MEDS: HYDROmorphone HCL PF 2 MG/ML VIAL IV PUSH PRN ×3 (01:09→13:03)
[2016-12-21] MEDS: niCARdipine INJ 25 MG in SODIUM CHLOR 0.9% 250 ML INJ 250 ML IV PRN ×2 (04:58→14:38)
[2016-12-21] MEDS: HYDROmorphone HCL 4 MG TAB PO SCH ×6 (04:59→21:58)
[2016-12-21] MEDS: SIMETHICONE 125 MG CHEWABLE TAB PO SCH ×3 (05:44→21:15)
[2016-12-21] MEDS: HEPARIN SODIUM - SQ 10,000 UNITS/ML VIAL SQ SCH (05:44)
[2016-12-21] MEDS: LEVOFLOXACIN 750 MG TAB PO SCH (08:49)
[2016-12-21] MEDS: ASPIRIN 325 MG TAB PO SCH (08:49)
[2016-12-21] MEDS: SODIUM CHLORIDE 0.9% FLUSH 5 ML FLUSH IVF SCH ×2 (08:49→21:15)
[2016-12-21] MEDS: LISINOPRIL 10 MG TAB PO SCH (08:50)
[2016-12-21] MEDS: DOCUSATE SODIUM 50 MG/SENNA 8.6 MG TAB PO SCH ×2 (08:50→21:15)
--- NOTE | 2016-12-21 10:00 | HHI.FPPN ---
Subjective Remarks No acute events overnight. Patient is lying in bed comfortably. He shouldn't continues to complain of pain despite his multiple pain medications. She has the collar off during the exam but is putting it back on. Patient denies any chest pain/shortness breath/dizziness. Patient denies any fever/chills. (Ashley Chavez MD R2) Objective Vitals Vital Signs Date Time Temp Pulse Resp B/P (MAP) Pulse Ox O2 Delivery O2 Flow Rate FiO2 12/21/16 08:00 97.5 94 13 167/84 (111) 90 12/21/16 08:00 94 12/21/16 06:00 82 12/21/16 04:58 82 145/81 12/21/16 04:00 82 12/21/16 04:00 82 21 158/92 (114) 93 12/21/16 02:00 84 12/21/16 00:00 97 12/21/16 00:00 98.2 97 11 170/89 (116) 98 12/20/16 22:00 91 12/20/16 20:01 95 21 12/20/16 20:00 97.6 88 18 175/92 (119) 95 12/20/16 20:00 88 12/20/16 19:00 96 Room Air 12/20/16 18:00 85 12/20/16 16:58 97 156/73 12/20/16 16:00 97.9 94 19 168/82 (110) 96 12/20/16 16:00 94 12/20/16 14:00 95 12/20/16 12:00 95 12/20/16 12:00 98.7 95 13 155/93 (113) 96 12/20/16 10:00 95 12/20/16 10:00 90 161/80 I/O 12/20/16 12/20/16 12/20/16 12/21/16 12/21/16 12/21/16 07:00 15:00 23:00 07:00 15:00 23:00 Intake Total 1340 ml 667 ml 287 ml 349 ml Output Total 700 ml Balance 640 ml 667 ml 287 ml 349 ml Intake Oral 480 ml IV Total 860 ml 667 ml 287 ml 349 ml Output Urine Total 700 ml Stool Total 0 ml # Voids 1 5 3 # Bowel Movements 1 0 (Ashley Chavez MD R2) Result Diagram: 12/20/16 1127 12/21/16 0450 Objective Remarks GENERAL: Well-nourished, well-developed patient. Patient is talkative SKIN: Warm and dry. HEAD: Normocephalic. EYES: No scleral icterus. No injection or drainage. NECK: Patient with c-collar off and on and gauze bandage over the anterior neck that is clean, dry, intact. CARDIOVASCULAR: Regular rate and rhythm without murmurs, gallops, or rubs. RESPIRATORY: Breath sounds equal bilaterally. No accessory muscle use. GASTROINTESTINAL: +BS, Abdomen non-tender, no distention no guarding EXTREMITIES: No cyanosis, or edema, or calf tenderness. NEUROLOGICAL: Awake, alert, and oriented x 3. Non-focal. No facial droop, slurred speech, motor and sensation intact bilaterally. (Ashley Chavez MD R2) A/P Assessment and Plan 61 YO male with MRI positive for osteomyelitis of cervical spine and epidural abscess ruled out for now. Neurosurgery took pt to OR on 12/16/16 for exploration and bone biopsy, growing pseudomonas from culture. ID, Dr Dumont has seen and started Cefepime and Levaquin after surgery. Anticipate long-term IV antibiotics. 12/19/16, there was c/f CVA in the context of hypertensive urgency, so CVA w/u initiated; results negative. Discharge Planning per ID and neurosurgery rec's (Ashley Chavez MD R2) Attending Attestation Patient examined and case discussed with resident physicians I have read the above note and agree with the assessment/plan as discussed with me I was involved in all medical decision making for this patient Jeffery Wright M.D. (Jeffery Wright MD) Problem List: (1) Osteomyelitis of cervical spine ICD Codes: M46.22 - Osteomyelitis of vertebra, cervical region Status: Acute Plan: MRI positive for osteomyelitis of cervical spine and negative for epidural abscess. Patient is POD #3 s/p C5-6 anterior cervical discectomy, debridement of osteomyelitis () -Neurosurgery consulted and appreciated Continue PT/OT eval & tx. PT recommends home with no PT maintain cervical collar dressing changes -ID has seen pt and plan is: Given the patient is growing Pseudomonas from culture, continue cefepime and add Levaquin. Anticipate long-term IV antibiotics 2-D echo: WNL -Tylenol for fever -Pain control: Ativan seems to work better than pain medications. Schedule half home dose of Dilaudid 4 mg po q4h, Dilaudid 2mg IV q2h for breakthrough pain -Blood cx x3 -Daily CBC, BMP -Monitor vitals -Pseudomonas is growing in the biopsy, negative blood cultures. - UDS positive for opiates (home dilaudid) and benzos (UDS was drawn BEFORE Ativan given) - We suspect Benzo abuse before admission - Pseudomonas is the second most common organism seen in iv drug abusers (2) Hypertensive urgency ICD Codes: I16.0 - Hypertensive urgency Status: Acute Plan: Patient is persistently hypertensive despite oral medications. There was c/f CVA overnight (12/19 am) -Neurology consult appreciated: continue CVA w/u -Nicardipine drip with goal bp reduction of 25-30% for goal systolic blood pressure 160-180; patient has completed 24 hours of permissive HTN -CVA w/u. MRI showed no acute hemorrhage or stroke, MRA unremarkable, US carotids <50% stenosis, Echocardiogram -neuro and vitals checks as above (3) Red stool ICD Codes: R19.5 - Other fecal abnormalities Plan: Patient reports having red in the stools this morning (12/20) -Hemoccult (4) SELIN (acute kidney injury) ICD Codes: N17.9 - Acute kidney failure, unspecified Status: Resolved Plan: BL Cr 1.5-1.8 in the HH record at 2.07 on admit -- acute on chronic selin. back to baseline. -no IVF -Renal dosing of meds when indicated -Monitor labs (5) Abdominal pain ICD Codes: R10.9 - Unspecified abdominal pain Status: Resolved Plan: Pt had abdominal pain & constipation on 12/20 that has resolved. No BM yet today -Simethicone -Mary Lou-colace -Other anticonstipation medications when necessary (6) Hypertension ICD Codes: I10 - Essential (primary) hypertension Status: Acute Plan: Elevated BP on admission to 212/110 with bradycardia to 53. still HTNive overnight but better control, with highest BP 182/79 -nicardipine drip as above -Continue home Lisinopril 10 mg day -Continue home Norvasc 5 mg day -Hydralazine 10 mg PO PRN -Clonidine 0.1 mg PRN improving BPs today, may be pain related as well (7) FEN/GI/PPx Status: Acute Plan: Fluids: none GI: no PPI indicated; zofran 4 mg IV PRN for nausea Diet: Regular basic DVT PPx: heparin q8h, SCDs Constipation: Mary Lou-colace, senna and other medications PRN Activity: OOB ad darinel (Ashley Chavez MD R2) Problem Qualifiers (1) Hypertension: Qualified Codes: I10 - Essential (primary) hypertension Ashley Chavez MD R2 Dec 21, 2016 10:00 Jeffery Wright MD Dec 21, 2016 14:48
--- NOTE | 2016-12-21 10:29 | HHI.NSPN ---
(Ronny Paris) History Chief Complaint: Pain to the back of the neck. (Ronny Paris) Interval History 12/17: 61-year-old male previously admitted in May 2016 with right upper extremity cellulitis, MRSA. He states that he has had no significant previous neck pain up until 2 weeks ago. Since then he has experienced progressive severe neck pain without radiation to the upper extremities. He has no complaint of upper or lower extremity pain weakness or numbness. He has a history of chronic low back pain, which she states is a little worse in the past couple of weeks. He denies any fevers chills. He does complain of nausea yesterday. He has been taking at least 1000 mg of Motrin a day to try to control the pain. He presented to the emergency room today due to the persistent pain symptoms. The patient was taken for a C5-6 anterior cervical discetomy. Post-operatively he was transferred to the [facility] due to concerns of pupillary changes. 12/18: The patient has done well since admission to the [facility]. This morning when seen he says he is doing good. He does complain of pain to the base of the skull and aching in "the bones." 12/20: pt was transferred to [facility] Wednesday evening due to vision changes, Neurology consulted. MRI Brain neg for acute CVA. Patient on cardene for bp control. c/ o persistent severe cervical pain. denies new sx to extremities, he is ambulating 12/21: The patient is alseep when seen but awakens to voice. He readily drifts back off to sleep. He does complain of pain to the back of the neck that runs down both upper extremities to the elbow. He also endorses a headache to the back of the head as well. He states the pain isn't nearly like what it was before surgery. (Ronny Paris) System Review Comments Constitutional: Patient denies any fever or chills. HEENT: Patient denies any visual or hearing problems. Respiratory: Patient denies any shortness of breath or productive cough. Cardiovascular: Patient had some chest pain last night that resolved, none at present. He denies any palpitations or irregular heartbeat. Gastrointestinal: Patient had some abdominal pain last night that resolved, none at present. He denies any nausea, vomiting or incontinence of stool. Genitourinary: Patient denies any incontinence of urine. Musculoskeletal: Patient complains of pain to the back of the neck that radiates down both arms to the elbows. Neurologic: Patient complains of headache to the back of the head. He endorses chronic right-sided weakness from a prior stroke. He denies any dizziness, numbness or tingling. (Ronny Paris) Exam Results 12/19/16 12/19/16 12/20/16 12/20/16 12/21/16 12/21/16 06:00 18:00 06:00 18:00 06:00 18:00 Intake Total 0 ml 1309 ml 1363 ml 954 ml 349 ml Output Total 275 ml 700 ml Balance 0 ml 1034 ml 663 ml 954 ml 349 ml Intake Oral 500 ml 480 ml IV Total 809 ml 883 ml 954 ml 349 ml Other 0 ml Output Urine Total 275 ml 700 ml Stool Total 0 ml # Voids 1 5 3 # Bowel Movements 1 0 Vital Signs Date Time Temp Pulse Resp B/P (MAP) Pulse Ox O2 Delivery O2 Flow Rate FiO2 12/21/16 08:00 97.5 94 13 167/84 (111) 90 12/21/16 08:00 94 12/21/16 06:00 82 12/21/16 04:58 82 145/81 12/21/16 04:00 82 12/21/16 04:00 82 21 158/92 (114) 93 12/21/16 02:00 84 12/21/16 00:00 97 12/21/16 00:00 98.2 97 11 170/89 (116) 98 12/20/16 22:00 91 12/20/16 20:01 95 21 12/20/16 20:00 97.6 88 18 175/92 (119) 95 12/20/16 20:00 88 12/20/16 19:00 96 Room Air 12/20/16 18:00 85 12/20/16 16:58 97 156/73 12/20/16 16:00 97.9 94 19 168/82 (110) 96 12/20/16 16:00 94 12/20/16 14:00 95 12/20/16 12:00 95 12/20/16 12:00 98.7 95 13 155/93 (113) 96 12/20/16 10:00 95 12/20/16 10:00 90 161/80 12/20/16 09:17 76 213/90 12/20/16 08:00 98.7 86 11 182/79 (113) 96 12/20/16 08:00 86 12/20/16 07:49 96 21 12/20/16 07:19 10 12/20/16 07:00 96 Room Air 12/20/16 06:00 87 12/20/16 04:00 98.5 93 12 192/93 (126) 93 12/20/16 04:00 93 12/20/16 03:47 11 12/20/16 02:00 95 12/20/16 00:03 15 12/20/16 00:00 98.3 84 28 187/101 (129) 95 12/20/16 00:00 84 12/19/16 22:11 97 21 12/19/16 22:00 93 12/19/16 20:00 95 12/19/16 20:00 98.2 95 27 185/94 (124) 95 12/19/16 19:00 99 Nasal Cannula 3.00 12/19/16 18:00 88 12/19/16 16:00 96 12/19/16 16:00 98.0 96 24 177/113 (134) 96 12/19/16 15:00 84 12/19/16 14:00 89 12/19/16 12:03 104 188/88 12/19/16 12:00 101 12/19/16 12:00 97.8 107 25 192/98 (129) 92 12/19/16 10:33 34 12/19/16 10:00 90 12/19/16 08:00 90 12/19/16 08:00 97.7 91 12 182/92 (122) 96 12/19/16 07:00 93 12/19/16 07:00 96 Nasal Cannula 3.00 12/19/16 06:00 104 12/19/16 05:02 85 222/105 12/19/16 05:00 97.9 73 16 222/105 (144) 94 12/19/16 03:35 76 228/117 (154) 96 12/19/16 00:55 97.6 73 20 197/98 (131) 92 12/18/16 22:33 67 207/99 (135) 93 12/18/16 22:30 93 21 12/18/16 20:21 Room Air 12/18/16 20:00 98.2 71 18 213/98 (136) 92 12/18/16 16:00 97.8 61 18 180/25 (76) 99 12/18/16 12:04 Arterial Line 12/18/16 12:00 98.1 79 12 152/79 (103) 97 (Ronny Paris) Physical Examination GENERAL: Asleep but awakens to voice. Readily interacts but drifts off back to sleep. Affect normal. NAD. SKIN: Warm & dry. Anterior neck surgical incision w/steri-strips & dressing intact. Multiple scattered abrasions and superficial skin ulcerations to the upper extremities. HEENT: Normocephalic, atraumatic. NECK: Latimer J cervical collar in place. Intact dressing to anterior surgical incision w/steri-strips intact, NTTP. Midline cervical spine mildly TTP. No JVD , trachea midline. CARDIOVASCULAR: S1S2 w/RRR w/o M/G/R, radial & pedal pulses 2+ bilaterally, cap refill < 2 sec, no pedal edema. Monitor is sinus sinus rhythm w/o any ectopy noted. SBP in the 170s when seen, on nicardipine drip at 3 mg/hr. RESPIRATORY: CTAB w/o W/R/R, equal excursion, nonlaboured, on RA. GASTROINTESTINAL: Abdomen soft, NTTP, positive bowel sounds. MUSCULOSKELETAL: TRISTAN w/o difficulty, no evident deformity or clubbing. NEUROLOGICAL: Asleep but awakens to verbal stimulation. He readily interacts but does drift back off to sleep. GCS 14 (E3 V5 M6). Speech clear & appropriate. Follows simple commands w/o difficulty. Sensation intact to light touch to all extremities. Motor strength: LUE: 5/5 to all major flexion & extension muscle groups. LLE: 5/5 to all major flexion & extension muscle groups. RUE: Deltoid 3/5, triceps, biceps 3+ to 4/5. Patient states that weakness is chronic. RLE: Iliopsoas 3+ to 4/5, quadriceps 4+/5, hamstrings 3/5, gastrocnemius 5/5 , extensor hallucis 2+ to 3/5, extensor digitorum 2+ to 3/5. (Ronny Paris) Lab, Micro, Other Results Recent Impressions Head Magnetic Resonance Angiography 12/19/16 Signed Impressions: Service Date/Time: Monday, December 19, 2016 15:25 - CONCLUSION: Unremarkable exam. Kirby López MD Head CT 12/19/16 Signed Impressions: Service Date/Time: Monday, December 19, 2016 02:31 - CONCLUSION: No acute findings in the brain. Bernabe Nicole MD Carotid Artery Ultrasound 12/19/16 0000 Signed Impressions: Service Date/Time: Monday, December 19, 2016 08:22 - CONCLUSION: 1. Mild to moderate atherosclerotic plaque bilaterally, as above. However, Doppler assessment indicates less than 50%% stenosis within both internal carotid arteries. 2. There is antegrade flow within both vertebral arteries. Jaylan Mayre MD Brain MRI 12/19/16 0000 Signed Impressions: Service Date/Time: Monday, December 19, 2016 15:25 - CONCLUSION: 1. No acute hemorrhage or stroke. 2. Extensive abnormal white matter signal which has progressed mildly since the prior study. 3. Chronic opacification of the right maxillary sinus is again noted. Kirby López MD Abdomen X-Ray 12/19/16 0000 Signed Impressions: Service Date/Time: Monday, December 19, 2016 09:54 - CONCLUSION: Mild gaseous distention of the colon with stool in the right colon. No acute finding is identified. Jalyan Mayer MD Laboratory Tests Test 12/18/16 17:00 12/19/16 11:42 12/20/16 04:30 12/20/16 11:27 Urine Opiates Screen POS Urine Barbiturates Screen NEG Urine Amphetamines Screen NEG Urine Benzodiazepines Screen POS Urine Cocaine Screen NEG Urine Cannabinoids Screen NEG White Blood Count 11.3 TH/MM3 9.4 TH/MM3 Red Blood Count 4.53 MIL/MM3 4.21 MIL/MM3 Hemoglobin 12.3 GM/DL 11.8 GM/DL Hematocrit 38.1 % 34.9 % Mean Corpuscular Volume 84.2 FL 83.0 FL Mean Corpuscular Hemoglobin 27.2 PG 28.1 PG Mean Corpuscular Hemoglobin Concent 32.3 % 33.8 % Red Cell Distribution Width 14.7 % 14.9 % Platelet Count 361 TH/MM3 277 TH/MM3 Mean Platelet Volume 7.3 FL 7.6 FL Neutrophils (%) (Auto) 78.0 % Lymphocytes (%) (Auto) 14.6 % Monocytes (%) (Auto) 4.8 % Eosinophils (%) (Auto) 1.6 % Basophils (%) (Auto) 1.0 % Neutrophils # (Auto) 8.8 TH/MM3 Lymphocytes # (Auto) 1.6 TH/MM3 Monocytes # (Auto) 0.5 TH/MM3 Eosinophils # (Auto) 0.2 TH/MM3 Basophils # (Auto) 0.1 TH/MM3 CBC Comment DIFF FINAL Differential Comment Blood Urea Nitrogen 25 MG/DL 22 MG/DL Creatinine 1.70 MG/DL 1.36 MG/DL Random Glucose 99 MG/DL 78 MG/DL Total Protein 8.3 GM/DL Albumin 3.0 GM/DL Calcium Level 9.2 MG/DL 8.7 MG/DL Alkaline Phosphatase 196 U/L Aspartate Amino Transf (AST/SGOT) 65 U/L Alanine Aminotransferase (ALT/SGPT) 75 U/L Total Bilirubin 0.5 MG/DL Sodium Level 139 MEQ/L 138 MEQ/L Potassium Level 3.7 MEQ/L 3.9 MEQ/L Chloride Level 103 MEQ/L 102 MEQ/L Carbon Dioxide Level 29.5 MEQ/L 27.5 MEQ/L Anion Gap 7 MEQ/L 9 MEQ/L Estimat Glomerular Filtration Rate 41 ML/MIN 54 ML/MIN Triglycerides Level 137 MG/DL 114 MG/DL Cholesterol Level 169 MG/DL 139 MG/DL LDL Cholesterol 105 MG/DL 80 MG/DL HDL Cholesterol 36.9 MG/DL 35.9 MG/DL Cholesterol/HDL Ratio 4.57 RATIO 3.87 RATIO Hematology Comments Test 12/21/16 04:50 Creatinine 1.40 MG/DL Estimat Glomerular Filtration Rate 52 ML/MIN (Ronny Paris) Medical Decision Making Impression and Plan Impression: 1. Findings are strongly suggestive of C5 6 discitis-osteomyelitis with possible small prevertebral abscess. 2. Hypertension 3. Rheumatoid arthritis Postoperative Diagnosis: (1) Osteomyelitis of cervical spine C5-6 discitis-osteomyelitis Wound culture with Pseudomonas aeruginosa, all other cultures negative so far. Patient continues to do well overall and appears neurologically intact. Right- sided weakness more evident today. Hypertensive. POD #4 () s/p: C5-6 anterior cervical discectomy, debridement osteomyelitis Plan: Plan of care discussed with the patient and Nursing. Primary management per Family Medicine. Antibiotics per Infectious Disease. Neuro checks. Maintain cervical collar when HOB is > 30 degrees or when OOB. Diet as tolerated. PT/OT eval & tx. Okay to transfer to a regular med/surg floor from NSGY's perspective. (Ronny Paris) Attending Statement The exam, history, and the medical decision-making described in the above note were completed with the assistance of the mid-level provider. I reviewed and agree with the findings presented. I attest that I had a [id number] encounter with the patient on the same day, and personally performed and documented my assessment and findings in the medical record. Stable neurologic exam following C5 6 discectomy Wound dry and intact No hoarseness of voice No significant dysphagia Okay to floor ID following (Ricardo Mcdonald MD) Ronny Paris Dec 21, 2016 10:29 Ricardo Mcdonald MD Jan 04, 2017 05:40
[2016-12-21] MEDS: CEFEPIME INJ 2,000 MG in SODIUM CHLORIDE 0.9% INJ 100 ML IV SCH (11:06)
[2016-12-21] MEDS ORDERED: niCARdipine INJ 25 MG in SODIUM CHLOR 0.9% 250 ML INJ 250 ML IV PRN (15:45)
--- NOTE | 2016-12-21 15:47 | HHI.FPPN ---
Addendum to progress note ADDENDUM Reason for addendum: Additonal documentation Additional information Resident paged by nursing for the following neuro status changes; patient stating that he had a hard time getting words out and had a new onset of right arm pain. Patient seen and examined bedside. He shouldn't is talkative and is able to have conversation without difficulty. Patient states is taking him a little longer to get his words out. Patient is stating his right shoulder is in severe 10 out of 10 pain and he would like more pain medication. Patient denies any weakness or numbness of any extremity. GENERAL: Well-nourished, well-developed patient. He is in no acute distress and talkative as mentioned above CARDIOVASCULAR: Regular rate and rhythm without murmurs, gallops, or rubs. RESPIRATORY: Breath sounds equal bilaterally. No accessory muscle use. EXTREMITIES: No cyanosis, or edema. NEUROLOGICAL: Awake, alert, and oriented x 3. Non-focal. Pupils reactive and equal bilaterally. Cranial nerves I-12 intact. Negative pronator drift. Sensation intact in 10 out of 10 in all extremities. Motor strength intact to 10 in all extremities. A/P: Patient is well-appearing and physical exam is benign as mentioned above. Patient's new onset right shoulder pain is likely due to delay in pain medications today. - Follow pain medicine schedule as prescribed - Addition of IV Tylenol 1 dose for right shoulder pain Ashley Chavez MD R2 Dec 21, 2016 15:47
[2016-12-21] MEDS ORDERED: ACETAMINOPHEN 1000 MG/100 ML VIAL IV ONE (16:15)
[2016-12-21 16:19] LABS: AUTOMATED NEUTROPHIL # 6.5 TH/MM3 (1.8-7.7); BASOPHIL % 0.2 % (0.0-2.0); EOSINOPHIL # 0.1 TH/MM3 (0-0.4); EOSINOPHIL % 1.7 % (0.0-4.0); HEMATOCRIT 35.4 % (39.0-51.0); HEMO FLAGS DIFF FINAL; LYMPH % 12.7 % (9.0-44.0); LYMPHOCYTE # 1.1 TH/MM3 (1.0-4.8); MEAN CELL VOLUME 83.7 FL (80.0-100.0); MEAN CORPUSCULAR HEMOGLOBIN 27.6 PG (27.0-34.0); MONO % 9.7 % (0.0-8.0); NEUT % 75.7 % (16.0-70.0); PLATELET COUNT 316 TH/MM3 (150-450); RED BLOOD COUNT 4.23 MIL/MM3 (4.50-5.90); RED CELL DISTRIBUTION WIDTH 14.7 % (11.6-17.2); WHITE BLOOD COUNT 8.6 TH/MM3 (4.0-11.0)
[2016-12-21] MEDS: cloNIDine HCL 0.1 MG TAB PO SCH ×2 (16:24→21:15)
[2016-12-21] MEDS: hydrALAZINE HCL 20 MG/ML VIAL IV PUSH PRN (16:27)
[2016-12-21] MEDS: hydrALAZINE HCL 50 MG TAB PO SCH (18:28)
[2016-12-21] MEDS: cloNIDine HCL 0.1 MG TAB PO PRN (21:58)
[2016-12-22] VITALS (10 sets, daily range): BP systolic 138–173; BP diastolic 68–87; PULSE 64–85; RESP 11–23; TEMP 98–98.6; O2SAT 97–98
[2016-12-22] MEDS: hydrALAZINE HCL 50 MG TAB PO SCH ×5 (00:21→22:42)
[2016-12-22] MEDS: HYDROmorphone HCL PF 2 MG/ML VIAL IV PUSH PRN ×6 (00:28→20:23)
[2016-12-22] MEDS: HYDROmorphone HCL 4 MG TAB PO SCH ×5 (02:59→22:42)
[2016-12-22] MEDS: hydrALAZINE HCL 20 MG/ML VIAL IV PUSH PRN (04:51)
[2016-12-22 05:29] LABS: BICARBONATE 30.2 MEQ/L (21.0-32.0); POTASSIUM 3.9 MEQ/L (3.5-5.1)
[2016-12-22] MEDS: SIMETHICONE 125 MG CHEWABLE TAB PO SCH ×3 (05:58→20:24)
[2016-12-22] MEDS: cloNIDine HCL 0.1 MG TAB PO SCH ×3 (05:59→20:24)
[2016-12-22] MEDS: ASPIRIN 325 MG TAB PO SCH (08:11)
[2016-12-22] MEDS: DOCUSATE SODIUM 50 MG/SENNA 8.6 MG TAB PO SCH ×2 (08:11→20:24)
[2016-12-22] MEDS: LEVOFLOXACIN 750 MG TAB PO SCH (08:11)
[2016-12-22] MEDS: LISINOPRIL 20 MG TAB PO SCH (08:11)
[2016-12-22] MEDS: SODIUM CHLORIDE 0.9% FLUSH 5 ML FLUSH IVF SCH ×2 (08:12→20:24)
--- NOTE | 2016-12-22 10:01 | HHI.NSPN ---
(Ronny Paris) History Chief Complaint: Neck pain (Ronny Paris) Interval History 12/17: 61-year-old male previously admitted in May 2016 with right upper extremity cellulitis, MRSA. He states that he has had no significant previous neck pain up until 2 weeks ago. Since then he has experienced progressive severe neck pain without radiation to the upper extremities. He has no complaint of upper or lower extremity pain weakness or numbness. He has a history of chronic low back pain, which she states is a little worse in the past couple of weeks. He denies any fevers chills. He does complain of nausea yesterday. He has been taking at least 1000 mg of Motrin a day to try to control the pain. He presented to the emergency room today due to the persistent pain symptoms. The patient was taken for a C5-6 anterior cervical discetomy. Post-operatively he was transferred to the [facility] due to concerns of pupillary changes. 12/18: The patient has done well since admission to the [facility]. This morning when seen he says he is doing good. He does complain of pain to the base of the skull and aching in "the bones." 12/20: pt was transferred to [facility] Wednesday evening due to vision changes, Neurology consulted. MRI Brain neg for acute CVA. Patient on cardene for bp control. c/ o persistent severe cervical pain. denies new sx to extremities, he is ambulating 12/21: The patient is alseep when seen but awakens to voice. He readily drifts back off to sleep. He does complain of pain to the back of the neck that runs down both upper extremities to the elbow. He also endorses a headache to the back of the head as well. He states the pain isn't nearly like what it was before surgery. 12/22: The patient is awake and watching TV when seen this morning. The cervical collar is laying on the bed. He states that he isn't doing good. He then lists a litany of complaints to include pain to the neck, otherwise the complaints are related to his chronic issues. It was reinforced that the patient needed to have the cervical collar on when the HOB was greater than 30 degrees or if he was out of bed. The patient verbalised his understanding. Nursing reported that the patient's blood pressure medications were adjusted and he just received them shortly before seen and his pressure should come down. She expects that he will be able to transfer to a regular med/surg floor. (Ronny Paris) System Review Comments Constitutional: Patient denies any fever or chills. HEENT: Patient denies any visual or hearing problems. Respiratory: Patient denies any shortness of breath or productive cough. Cardiovascular: Patient denies any chest pain, palpitations or irregular heartbeat. Gastrointestinal: Patient denies any abdominal pain, nausea, vomiting or incontinence of stool. Genitourinary: Patient denies any incontinence of urine. Musculoskeletal: Patient complains of pain to the back of the neck and the back. Neurologic: Patient complains of headache to the back of the head. He endorses chronic right-sided weakness from a prior stroke. He also states that he has chronic numbness to the 3rd, 4th and 5th digits of the right hand and to the right lateral foot, but no change. (Ronny Paris) Exam Results 12/20/16 12/20/16 12/21/16 12/21/16 12/22/16 12/22/16 06:00 18:00 06:00 18:00 06:00 18:00 Intake Total 1363 ml 954 ml 349 ml 1251 ml 400 ml Output Total 700 ml 1475 ml Balance 663 ml 954 ml 349 ml 1251 ml -1075 ml Intake Oral 480 ml 580 ml 400 ml IV Total 883 ml 954 ml 349 ml 671 ml Output Urine Total 700 ml 1475 ml Stool Total 0 ml # Voids 1 5 3 4 4 # Bowel Movements 1 0 0 0 Vital Signs Date Time Temp Pulse Resp B/P (MAP) Pulse Ox O2 Delivery O2 Flow Rate FiO2 12/22/16 08:00 98.0 66 18 138/68 (91) 97 12/22/16 08:00 66 12/22/16 06:00 76 12/22/16 04:00 66 12/22/16 04:00 98.0 66 13 171/87 (115) 98 12/22/16 02:00 64 12/22/16 00:00 98.6 74 11 165/86 (112) 98 12/22/16 00:00 74 12/21/16 22:00 86 12/21/16 20:11 98 21 12/21/16 20:00 98.0 84 23 157/81 (106) 98 12/21/16 20:00 84 12/21/16 18:00 88 12/21/16 16:00 97.8 81 15 162/87 (112) 94 12/21/16 16:00 81 12/21/16 14:38 88 168/94 12/21/16 14:00 87 12/21/16 12:00 98.0 76 18 172/84 (113) 96 12/21/16 12:00 77 12/21/16 11:28 95 12/21/16 10:00 83 12/21/16 08:00 97.5 94 13 167/84 (111) 90 12/21/16 08:00 94 12/21/16 06:00 82 12/21/16 04:58 82 145/81 12/21/16 04:00 82 12/21/16 04:00 82 21 158/92 (114) 93 12/21/16 02:00 84 12/21/16 00:00 97 12/21/16 00:00 98.2 97 11 170/89 (116) 98 12/20/16 22:00 91 12/20/16 20:01 95 21 12/20/16 20:00 97.6 88 18 175/92 (119) 95 12/20/16 20:00 88 12/20/16 19:00 96 Room Air 12/20/16 18:00 85 12/20/16 16:58 97 156/73 12/20/16 16:00 97.9 94 19 168/82 (110) 96 12/20/16 16:00 94 12/20/16 14:00 95 12/20/16 12:00 95 12/20/16 12:00 98.7 95 13 155/93 (113) 96 12/20/16 10:00 95 12/20/16 10:00 90 161/80 12/20/16 09:17 76 213/90 12/20/16 08:00 98.7 86 11 182/79 (113) 96 12/20/16 08:00 86 12/20/16 07:49 96 21 12/20/16 07:19 10 12/20/16 07:00 96 Room Air 12/20/16 06:00 87 12/20/16 04:00 98.5 93 12 192/93 (126) 93 12/20/16 04:00 93 12/20/16 03:47 11 12/20/16 02:00 95 12/20/16 00:03 15 12/20/16 00:00 98.3 84 28 187/101 (129) 95 12/20/16 00:00 84 12/19/16 22:11 97 21 12/19/16 22:00 93 12/19/16 20:00 95 12/19/16 20:00 98.2 95 27 185/94 (124) 95 12/19/16 19:00 99 Nasal Cannula 3.00 12/19/16 18:00 88 12/19/16 16:00 96 12/19/16 16:00 98.0 96 24 177/113 (134) 96 12/19/16 15:00 84 12/19/16 14:00 89 12/19/16 12:03 104 188/88 12/19/16 12:00 101 12/19/16 12:00 97.8 107 25 192/98 (129) 92 12/19/16 10:33 34 12/19/16 10:00 90 (Ronny Paris) Physical Examination GENERAL: Awake & alert, readily interacts. Affect normal. NAD. SKIN: Warm & dry. Anterior neck surgical incision w/steri-strips & dressing intact. Multiple scattered abrasions and superficial skin ulcerations to the upper extremities. HEENT: Normocephalic, atraumatic. NECK: Adams J cervical collar laying on bed. Intact dressing to anterior surgical incision w/steri-strips intact, NTTP. Midline cervical spine minimally TTP. No JVD, trachea midline. CARDIOVASCULAR: S1S2 w/RRR w/o M/G/R, radial & pedal pulses 2+ bilaterally, cap refill < 2 sec, no pedal edema. Monitor is sinus sinus rhythm w/o any ectopy noted. SBP in the 160s when seen, on nicardipine drip at 3 mg/hr. RESPIRATORY: CTAB w/o W/R/R, equal excursion, nonlaboured, on RA. GASTROINTESTINAL: Abdomen soft, NTTP, positive bowel sounds. MUSCULOSKELETAL: TRISTAN w/o difficulty, no evident deformity or clubbing. NEUROLOGICAL: AAOx3, GCS 15. Speech clear & appropriate. Follows simple commands w/o difficulty. Sensation intact to light touch to all extremities. Motor strength: LUE: 5/5 to all major flexion & extension muscle groups. LLE: 5/5 to all major flexion & extension muscle groups. RUE: Deltoid 3/5, triceps 4/5, biceps 4 to 4+/5. Patient states that weakness is chronic. RLE: Iliopsoas 4 to 4+/5, quadriceps 4+/5, hamstrings 4 to 4+/5, gastrocnemius 5/5, tibialis anterior 4+/5, extensor hallucis 4 to 4+/5, extensor digitorum 4 to 4+/5. The patient is initially able to give strong resistance with toes but then cannot. Patient states that weakness is chronic. (Ronny Paris) Lab, Micro, Other Results Laboratory Tests Test 12/19/16 11:42 12/20/16 04:30 12/20/16 11:27 12/21/16 04:50 White Blood Count 11.3 TH/MM3 9.4 TH/MM3 Red Blood Count 4.53 MIL/MM3 4.21 MIL/MM3 Hemoglobin 12.3 GM/DL 11.8 GM/DL Hematocrit 38.1 % 34.9 % Mean Corpuscular Volume 84.2 FL 83.0 FL Mean Corpuscular Hemoglobin 27.2 PG 28.1 PG Mean Corpuscular Hemoglobin Concent 32.3 % 33.8 % Red Cell Distribution Width 14.7 % 14.9 % Platelet Count 361 TH/MM3 277 TH/MM3 Mean Platelet Volume 7.3 FL 7.6 FL Neutrophils (%) (Auto) 78.0 % Lymphocytes (%) (Auto) 14.6 % Monocytes (%) (Auto) 4.8 % Eosinophils (%) (Auto) 1.6 % Basophils (%) (Auto) 1.0 % Neutrophils # (Auto) 8.8 TH/MM3 Lymphocytes # (Auto) 1.6 TH/MM3 Monocytes # (Auto) 0.5 TH/MM3 Eosinophils # (Auto) 0.2 TH/MM3 Basophils # (Auto) 0.1 TH/MM3 CBC Comment DIFF FINAL Differential Comment Blood Urea Nitrogen 25 MG/DL 22 MG/DL Creatinine 1.70 MG/DL 1.36 MG/DL 1.40 MG/DL Random Glucose 99 MG/DL 78 MG/DL Total Protein 8.3 GM/DL Albumin 3.0 GM/DL Calcium Level 9.2 MG/DL 8.7 MG/DL Alkaline Phosphatase 196 U/L Aspartate Amino Transf (AST/SGOT) 65 U/L Alanine Aminotransferase (ALT/SGPT) 75 U/L Total Bilirubin 0.5 MG/DL Sodium Level 139 MEQ/L 138 MEQ/L Potassium Level 3.7 MEQ/L 3.9 MEQ/L Chloride Level 103 MEQ/L 102 MEQ/L Carbon Dioxide Level 29.5 MEQ/L 27.5 MEQ/L Anion Gap 7 MEQ/L 9 MEQ/L Estimat Glomerular Filtration Rate 41 ML/MIN 54 ML/MIN 52 ML/MIN Triglycerides Level 137 MG/DL 114 MG/DL Cholesterol Level 169 MG/DL 139 MG/DL LDL Cholesterol 105 MG/DL 80 MG/DL HDL Cholesterol 36.9 MG/DL 35.9 MG/DL Cholesterol/HDL Ratio 4.57 RATIO 3.87 RATIO Hematology Comments Test 12/21/16 15:23 12/22/16 03:51 White Blood Count 8.6 TH/MM3 Red Blood Count 4.23 MIL/MM3 Hemoglobin 11.7 GM/DL Hematocrit 35.4 % Mean Corpuscular Volume 83.7 FL Mean Corpuscular Hemoglobin 27.6 PG Mean Corpuscular Hemoglobin Concent 33.0 % Red Cell Distribution Width 14.7 % Platelet Count 316 TH/MM3 Mean Platelet Volume 7.0 FL Neutrophils (%) (Auto) 75.7 % Lymphocytes (%) (Auto) 12.7 % Monocytes (%) (Auto) 9.7 % Eosinophils (%) (Auto) 1.7 % Basophils (%) (Auto) 0.2 % Neutrophils # (Auto) 6.5 TH/MM3 Lymphocytes # (Auto) 1.1 TH/MM3 Monocytes # (Auto) 0.8 TH/MM3 Eosinophils # (Auto) 0.1 TH/MM3 Basophils # (Auto) 0.0 TH/MM3 CBC Comment DIFF FINAL Differential Comment Blood Urea Nitrogen 26 MG/DL Creatinine 1.53 MG/DL Random Glucose 92 MG/DL Calcium Level 9.0 MG/DL Sodium Level 138 MEQ/L Potassium Level 3.9 MEQ/L Chloride Level 101 MEQ/L Carbon Dioxide Level 30.2 MEQ/L Anion Gap 7 MEQ/L Estimat Glomerular Filtration Rate 47 ML/MIN (Ronny Paris) Medical Decision Making Impression and Plan Impression: 1. Findings are strongly suggestive of C5 6 discitis-osteomyelitis with possible small prevertebral abscess. 2. Hypertension 3. Rheumatoid arthritis Postoperative Diagnosis: (1) Osteomyelitis of cervical spine C5-6 discitis-osteomyelitis Wound culture with Pseudomonas aeruginosa, all other cultures negative so far. Patient continues to do well overall and appears neurologically intact. Less right-sided weakness today. Hypertension improved. POD #5 () s/p: C5-6 anterior cervical discectomy, debridement osteomyelitis Plan: Plan of care discussed with the patient and Nursing. Primary management per Family Medicine. Antibiotics per Infectious Disease. Neuro checks. Maintain cervical collar when HOB is > 30 degrees or when OOB. Diet as tolerated. PT/OT eval & tx. Okay to transfer to a regular med/surg floor from NSGY's perspective. (Ronny Paris) Attending Statement The exam, history, and the medical decision-making described in the above note were completed with the assistance of the mid-level provider. I reviewed and agree with the findings presented. I attest that I had a [id number] encounter with the patient on the same day, and personally performed and documented my assessment and findings in the medical record. Remains with stable neurologic exam postop Advance diet He may transfer to the floor (Ricardo Mcdonald MD) Ronny Paris Dec 22, 2016 10:01 Ricardo Mcdonald MD Jan 04, 2017 05:41
[2016-12-22] MEDS: CEFEPIME INJ 2,000 MG in SODIUM CHLORIDE 0.9% INJ 100 ML IV SCH (11:17)
--- NOTE | 2016-12-22 12:19 | HHI.FPPN ---
Subjective Remarks No acute events overnight. Patient still hypertensive overnight, but successfully weaned off of nicardipine drip and onto oral medications. Otherwise , afebrile vital signs stable. Patient complains of diffuse pain, especially in his neck, sore throat, problems with his memory. He also continues to express concern for his daughter. (Kirby Garcia MD R2) Objective Vitals Vital Signs Date Time Temp Pulse Resp B/P (MAP) Pulse Ox O2 Delivery O2 Flow Rate FiO2 12/22/16 10:00 75 12/22/16 08:00 98.0 66 18 138/68 (91) 97 12/22/16 08:00 66 12/22/16 06:00 76 12/22/16 04:00 66 12/22/16 04:00 98.0 66 13 171/87 (115) 98 12/22/16 02:00 64 12/22/16 00:00 98.6 74 11 165/86 (112) 98 12/22/16 00:00 74 12/21/16 22:00 86 12/21/16 20:11 98 21 12/21/16 20:00 98.0 84 23 157/81 (106) 98 12/21/16 20:00 84 12/21/16 18:00 88 12/21/16 16:00 97.8 81 15 162/87 (112) 94 12/21/16 16:00 81 12/21/16 14:38 88 168/94 12/21/16 14:00 87 I/O 12/21/16 12/21/16 12/21/16 12/22/16 12/22/16 12/22/16 07:00 15:00 23:00 07:00 15:00 23:00 Intake Total 349 ml 1251 ml 400 ml Output Total 1475 ml Balance 349 ml 1251 ml -1075 ml Intake Oral 580 ml 400 ml IV Total 349 ml 671 ml Output Urine Total 1475 ml # Voids 3 4 4 # Bowel Movements 0 0 0 (Kirby Garcia MD R2) Result Diagram: 12/21/16 1523 12/22/16 0351 Imaging Last Impressions Head Magnetic Resonance Angiography 12/19/16 0000 Signed Impressions: Service Date/Time: Monday, December 19, 2016 15:25 - CONCLUSION: Unremarkable exam. Kirby López MD Head CT 12/19/16 Signed Impressions: Service Date/Time: Monday, December 19, 2016 02:31 - CONCLUSION: No acute findings in the brain. Bernabe Nicole MD Carotid Artery Ultrasound 12/19/16 Signed Impressions: Service Date/Time: Monday, December 19, 2016 08:22 - CONCLUSION: 1. Mild to moderate atherosclerotic plaque bilaterally, as above. However, Doppler assessment indicates less than 50%% stenosis within both internal carotid arteries. 2. There is antegrade flow within both vertebral arteries. Jaylan Mayer MD Brain MRI 12/19/16 Signed Impressions: Service Date/Time: Monday, December 19, 2016 15:25 - CONCLUSION: 1. No acute hemorrhage or stroke. 2. Extensive abnormal white matter signal which has progressed mildly since the prior study. 3. Chronic opacification of the right maxillary sinus is again noted. Kirby López MD Abdomen X-Ray 12/19/16 Signed Impressions: Service Date/Time: Monday, December 19, 2016 09:54 - CONCLUSION: Mild gaseous distention of the colon with stool in the right colon. No acute finding is identified. Jaylan Mayer MD Cervical Spine MRI 12/17/16 0935 Signed Impressions: Service Date/Time: November 09:58 - CONCLUSION: 1. Extensive marrow edema and enhancement in C5 and C6 with destruction of the disc interspace and some fluid in the area of the disc interspace. Findings are most characteristic of an osteomyelitis probably with a previous associated discitis. Also questionable early involvement of C4 inferiorly and C7 superiorly. There is also edema and inflammation around the posterior elements. There is mild canal stenosis between C4 and C7 but no cord edema identified. No enhancing epidural fluid collections to suggest epidural abscess. Neel Lal MD Cervical Spine X-Ray 12/17/16 Signed Impressions: Service Date/Time: November 18:16 - CONCLUSION: Pointer is at C5/C6. Jaylan Eid MD Cervical Spine CT 12/17/16 Signed Impressions: Service Date/Time: November 07:08 - CONCLUSION: 1. Abnormal C5-C6 level with endplate destruction and irregularity with associated kyphosis. This appearance is nonspecific but may related to prior infection. Based on the appearance, acute discitis is felt unlikely. However, since there is questionable prevertebral fluid near this level suggest correlation for any clinical signs of infection. MRI could offer additional characterization, if needed. 2. Partial fusion between C6-C7 possibly related to a similar process has occurred at C5-C6. 3. There is degenerative disease disease at C4-C5 and there is grade one anterolisthesis at C3-C4 secondary to right facet arthrosis. Jaylan Mayer MD Objective Remarks GENERAL: Well-nourished, well-developed patient. Patient is talkative. SKIN: Warm and dry. HEAD: Normocephalic. EYES: No scleral icterus. No injection or drainage. NECK: Patient with c-collar off and gauze bandage over the anterior neck that is clean, dry, intact. CARDIOVASCULAR: Regular rate and rhythm without murmurs, gallops, or rubs. RESPIRATORY: Breath sounds equal bilaterally. No accessory muscle use. GASTROINTESTINAL: +BS, Abdomen non-tender, no distention no guarding EXTREMITIES: No cyanosis, or edema, or calf tenderness. Less right arm weakness today. NEUROLOGICAL: Awake, alert, and oriented x 3. Non-focal. Sensation grossly intact. (Kirby Garcia MD R2) A/P Assessment and Plan 61 YO male with MRI positive for osteomyelitis of cervical spine and epidural abscess ruled out for now. Neurosurgery took pt to OR on 12/16/16 for exploration and bone biopsy, growing pseudomonas from culture. ID, Dr Dumont has seen and started Cefepime and Levaquin after surgery. Anticipate long-term IV antibiotics. 12/19/16, there was c/f CVA in the context of hypertensive urgency, so CVA w/u initiated; results negative. Discharge Planning per ID and neurosurgery rec's (Kirby Garcia MD R2) Attending Attestation Pt. examined and case discussed with resident physicians. I have read the above note and agree with the assessment and plan as discussed with me. I was involved in all medical decision making for this patient. Jeffery Wright MD (Jeffery Wright MD) Problem List: (1) Osteomyelitis of cervical spine ICD Codes: M46.22 - Osteomyelitis of vertebra, cervical region Status: Acute Plan: MRI positive for osteomyelitis of cervical spine and negative for epidural abscess. Patient is POD #5 () s/p C5-6 anterior cervical discectomy, debridement osteomyelitis and biopsy culture growing pseudomonas. -Neurosurgery consulted and appreciated Continue PT/OT eval & tx. PT recommends home with no PT Neuro checks maintain cervical collar when the HOB is greater than 30 degrees or if he is out of bed. ok to transfer to med/surg floor -ID has seen pt and plan is: Given that the patient is growing Pseudomonas from culture, continue cefepime and Levaquin. Anticipate long-term IV antibiotics 2-D echo: WNL -Tylenol for fever -Pain control: Ativan seems to work better than pain medications. Schedule acetaminophen 1 g IV every 6 hours, Toradol 15 mg every 6 hours, home dose of Dilaudid 8 mg po q6h -Roxicodone for pain 1-10, Dilaudid 2mg IV q2h for breakthrough pain -Ativan 1 mg IV push every 2 hours when necessary for anxiety -Methocarbamol/Robaxin 500 mg by mouth every 8 hours when necessary for muscle spasm -Simethicone -Mary Lou-colace -Other anticonstipation medications when necessary -Blood cx NGTD -Daily CBC, BMP -Monitor vitals -Pseudomonas is growing in the biopsy, negative blood cultures. - UDS positive for opiates (home dilaudid) and benzos (UDS was drawn BEFORE Ativan given) - We suspect Benzo abuse before admission - Pseudomonas is the second most common organism seen in IV drug abusers (2) Hypertensive urgency ICD Codes: I16.0 - Hypertensive urgency Status: Acute Plan: Patient is persistently hypertensive. There was c/f CVA in the am on . Neurology consult appreciated: CVA w/u negative. -Nicardipine drip stopped; transitioned to oral antihypertensive medications as below -neuro and vitals checks as above (3) Red stool ICD Codes: R19.5 - Other fecal abnormalities Plan: Patient reports having red in his stools on 12/20. -Hemoccult (4) Hypertension ICD Codes: I10 - Essential (primary) hypertension Status: Chronic Plan: Elevated BP on admission to 212/110 with bradycardia to 53. still HTNive overnight but controlled on oral medications without the Cardene drip -nicardipine drip stopped -Lisinopril 40 mg day -Norvasc 10 mg day -Clonidine 0.1 mg by mouth every 8 hours -Hydralazine 50 mg by mouth every 6 hours -Hydralazine 20 mg IV every 4 hours PRN blood pressure over 170/100 -Clonidine 0.1 mg PRN for blood pressure over 160/95 -Vasotec 1.25 mg IV push every 6 hours when necessary for hypertension over 180/ 105 (5) Sore throat ICD Codes: J02.9 - Acute pharyngitis, unspecified Status: Acute Plan: -Chloraseptic [place] PRN for sore throat -Magic mouthwash 4 times a day (6) FEN/GI/PPx Status: Acute Plan: Fluids: none GI: no PPI indicated; zofran 4 mg IV PRN for nausea Diet: Regular basic DVT PPx: heparin q8h, SCDs Constipation: Mary Lou-colace, senna and other medications PRN Activity: OOB ad darinel (Kirby Garcia MD R2) Problem Qualifiers (1) Hypertension: Qualified Codes: I10 - Essential (primary) hypertension Kirby Garcia MD R2 Dec 22, 2016 12:19 Jeffery Wright MD Dec 22, 2016 18:33
[2016-12-22] MEDS: NYSTAT/DIPHENHY/LIDO MOUTHWASH (Adult) 120ML SWISH-SWAL SCH ×3 (13:00→20:24)
[2016-12-22] MEDS ORDERED: KETOROLAC TROMETHAMINE 60 MG/2 ML (IM) VIAL IM SCH (13:00)
[2016-12-22] MEDS ORDERED: PHENOL 1.4% SOLN 180 ML BTL OROPHARYNG PRN (14:00)
[2016-12-22] MEDS: KETOROLAC TROMETHAMINE 30 MG/ML (IVP) VIAL IV PUSH SCH ×3 (14:16→22:41)
[2016-12-22] MEDS: ACETAMINOPHEN 1000 MG/100 ML VIAL IV SCH ×3 (14:16→22:42)
[2016-12-22] MEDS ORDERED: ENALAPRILAT 1.25 MG/ML VIAL IV PUSH PRN (17:30)
[2016-12-23] VITALS (10 sets, daily range): BP systolic 144–208; BP diastolic 43–93; PULSE 55–73; RESP 12–22; TEMP 97.6–98.8; O2SAT 97–99
[2016-12-23] MEDS: HYDROmorphone HCL PF 2 MG/ML VIAL IV PUSH PRN ×6 (00:32→20:48)
[2016-12-23] MEDS: LORazepam 2 MG/ML VIAL IV PUSH PRN (03:01)
[2016-12-23] MEDS: cloNIDine HCL 0.1 MG TAB PO PRN (03:09)
[2016-12-23] MEDS: ACETAMINOPHEN 1000 MG/100 ML VIAL IV SCH ×3 (05:41→18:35)
[2016-12-23] MEDS: hydrALAZINE HCL 50 MG TAB PO SCH ×4 (05:42→23:57)
[2016-12-23] MEDS: SIMETHICONE 125 MG CHEWABLE TAB PO SCH ×3 (05:42→20:47)
[2016-12-23] MEDS: cloNIDine HCL 0.1 MG TAB PO SCH ×3 (05:42→21:43)
[2016-12-23] MEDS: KETOROLAC TROMETHAMINE 30 MG/ML (IVP) VIAL IV PUSH SCH ×4 (05:42→23:57)
[2016-12-23] MEDS: HYDROmorphone HCL 4 MG TAB PO SCH ×4 (05:42→23:15)
[2016-12-23] MEDS: LEVOFLOXACIN 750 MG TAB PO SCH (08:09)
[2016-12-23] MEDS: LISINOPRIL 20 MG TAB PO SCH (08:09)
[2016-12-23] MEDS: ASPIRIN 325 MG TAB PO SCH (08:09)
[2016-12-23] MEDS: DOCUSATE SODIUM 50 MG/SENNA 8.6 MG TAB PO SCH ×2 (08:09→20:40)
[2016-12-23] MEDS: NYSTAT/DIPHENHY/LIDO MOUTHWASH (Adult) 120ML SWISH-SWAL SCH ×4 (08:10→20:39)
[2016-12-23] MEDS: SODIUM CHLORIDE 0.9% FLUSH 5 ML FLUSH IVF SCH ×2 (08:10→20:38)
[2016-12-23 09:15] LABS: HEMATOCRIT 36.2 % (39.0-51.0); MEAN CELL VOLUME 83.7 FL (80.0-100.0); MEAN CORPUSCULAR HEMOGLOBIN 28.1 PG (27.0-34.0); MEAN CORPUSCULAR HGB CONC 33.6 % (32.0-36.0); PLATELET COUNT 303 TH/MM3 (150-450); RED BLOOD COUNT 4.32 MIL/MM3 (4.50-5.90); RED CELL DISTRIBUTION WIDTH 14.7 % (11.6-17.2); REVIEW FLAG FINAL; WHITE BLOOD COUNT 5.4 TH/MM3 (4.0-11.0)
--- NOTE | 2016-12-23 09:51 | HHI.NSPN ---
(Ronny Paris) History Chief Complaint: Some neck pain. (Ronny Paris) Interval History 12/17: 61-year-old male previously admitted in May 2016 with right upper extremity cellulitis, MRSA. He states that he has had no significant previous neck pain up until 2 weeks ago. Since then he has experienced progressive severe neck pain without radiation to the upper extremities. He has no complaint of upper or lower extremity pain weakness or numbness. He has a history of chronic low back pain, which she states is a little worse in the past couple of weeks. He denies any fevers chills. He does complain of nausea yesterday. He has been taking at least 1000 mg of Motrin a day to try to control the pain. He presented to the emergency room today due to the persistent pain symptoms. The patient was taken for a C5-6 anterior cervical discetomy. Post-operatively he was transferred to the [facility] due to concerns of pupillary changes. 12/18: The patient has done well since admission to the [facility]. This morning when seen he says he is doing good. He does complain of pain to the base of the skull and aching in "the bones." 12/20: pt was transferred to [facility] Wednesday evening due to vision changes, Neurology consulted. MRI Brain neg for acute CVA. Patient on cardene for bp control. c/ o persistent severe cervical pain. denies new sx to extremities, he is ambulating 12/21: The patient is alseep when seen but awakens to voice. He readily drifts back off to sleep. He does complain of pain to the back of the neck that runs down both upper extremities to the elbow. He also endorses a headache to the back of the head as well. He states the pain isn't nearly like what it was before surgery. 12/22: The patient is awake and watching TV when seen this morning. The cervical collar is laying on the bed. He states that he isn't doing good. He then lists a litany of complaints to include pain to the neck, otherwise the complaints are related to his chronic issues. It was reinforced that the patient needed to have the cervical collar on when the HOB was greater than 30 degrees or if he was out of bed. The patient verbalised his understanding. Nursing reported that the patient's blood pressure medications were adjusted and he just received them shortly before seen and his pressure should come down. She expects that he will be able to transfer to a regular med/surg floor. 12/23: This morning the patient is awake and alert and eating breakfast. He says he is doing good. He does have some neck pain that is better and the headache is less. He is off the nicardipine drip and transfer orders were written for a regular med/surg floor yesterday. (Ronny Paris) System Review Comments Constitutional: Patient denies any fever or chills. HEENT: Patient denies any visual or hearing problems. Respiratory: Patient feels that he is not able to catch his breath at times. He denies any productive cough. Cardiovascular: Patient denies any chest pain, palpitations or irregular heartbeat. Gastrointestinal: Patient denies any abdominal pain, nausea, vomiting or incontinence of stool. Genitourinary: Patient denies any incontinence of urine. Musculoskeletal: Patient has some neck pain. He denies any pain to the back or the extremities. Neurologic: Patient states his headache is better. He endorses chronic right- sided weakness and numbness from a prior stroke without change. (Ronny Paris) Exam Results 12/21/16 12/21/16 12/22/16 12/22/16 12/23/16 12/23/16 06:00 18:00 06:00 18:00 06:00 18:00 Intake Total 349 ml 1251 ml 400 ml 100 ml 990 ml Output Total 1475 ml 1750 ml Balance 349 ml 1251 ml -1075 ml 100 ml -760 ml Intake Oral 580 ml 400 ml 590 ml IV Total 349 ml 671 ml 100 ml 400 ml Output Urine Total 1475 ml 1750 ml # Voids 3 4 4 # Bowel Movements 0 0 0 0 Vital Signs Date Time Temp Pulse Resp B/P (MAP) Pulse Ox O2 Delivery O2 Flow Rate FiO2 12/23/16 08:00 55 12/23/16 08:00 98.1 55 15 156/91 (112) 97 12/23/16 06:42 18 12/23/16 06:42 18 12/23/16 06:11 10 12/23/16 06:00 55 12/23/16 04:00 98.6 62 18 208/93 (131) 12/23/16 04:00 62 12/23/16 03:31 10 12/23/16 02:33 99 21 12/23/16 02:00 69 12/23/16 01:02 12 12/23/16 00:00 68 12/23/16 00:00 98.6 68 12 173/85 (114) 97 12/22/16 22:00 66 12/22/16 20:00 65 12/22/16 20:00 98.5 65 12 173/85 (114) 97 12/22/16 16:00 98.0 69 13 152/81 (104) 97 12/22/16 16:00 69 12/22/16 12:00 98.0 85 23 154/75 (101) 98 12/22/16 12:00 85 12/22/16 10:00 75 12/22/16 08:00 98.0 66 18 138/68 (91) 97 12/22/16 08:00 66 12/22/16 06:00 76 12/22/16 04:00 66 12/22/16 04:00 98.0 66 13 171/87 (115) 98 12/22/16 02:00 64 12/22/16 00:00 98.6 74 11 165/86 (112) 98 12/22/16 00:00 74 12/21/16 22:00 86 12/21/16 20:11 98 21 12/21/16 20:00 98.0 84 23 157/81 (106) 98 12/21/16 20:00 84 12/21/16 18:00 88 12/21/16 16:00 97.8 81 15 162/87 (112) 94 12/21/16 16:00 81 12/21/16 14:38 88 168/94 12/21/16 14:00 87 12/21/16 12:00 98.0 76 18 172/84 (113) 96 12/21/16 12:00 77 12/21/16 11:28 95 12/21/16 10:00 83 12/21/16 08:00 97.5 94 13 167/84 (111) 90 12/21/16 08:00 94 12/21/16 06:00 82 12/21/16 04:58 82 145/81 12/21/16 04:00 82 12/21/16 04:00 82 21 158/92 (114) 93 12/21/16 02:00 84 12/21/16 00:00 97 12/21/16 00:00 98.2 97 11 170/89 (116) 98 12/20/16 22:00 91 12/20/16 20:01 95 21 12/20/16 20:00 97.6 88 18 175/92 (119) 95 12/20/16 20:00 88 12/20/16 19:00 96 Room Air 12/20/16 18:00 85 12/20/16 16:58 97 156/73 12/20/16 16:00 97.9 94 19 168/82 (110) 96 12/20/16 16:00 94 12/20/16 14:00 95 12/20/16 12:00 95 12/20/16 12:00 98.7 95 13 155/93 (113) 96 12/20/16 10:00 95 12/20/16 10:00 90 161/80 (Ronny Paris) Physical Examination GENERAL: Awake & alert, readily interacts. Affect normal. NAD. SKIN: Warm & dry. Anterior neck surgical incision w/steri-strips & dressing intact. Multiple scattered abrasions and superficial skin ulcerations to the upper extremities. HEENT: Normocephalic, atraumatic. NECK: Fisher J cervical collar laying on bed. Intact dressing to anterior surgical incision w/steri-strips intact, NTTP. Midline cervical spine minimally TTP. No JVD, trachea midline. CARDIOVASCULAR: S1S2 w/RRR w/o M/G/R, radial & pedal pulses 2+ bilaterally, cap refill < 2 sec, no pedal edema. Monitor is sinus sinus bradycardia w/o any ectopy noted. RESPIRATORY: CTAB w/o W/R/R, equal excursion, nonlaboured, on RA. GASTROINTESTINAL: Abdomen soft, NTTP, positive bowel sounds. MUSCULOSKELETAL: TRISTAN w/o difficulty, no evident deformity or clubbing. NEUROLOGICAL: AAOx3, GCS 15. Speech clear & appropriate. Follows simple commands w/o difficulty. Sensation intact to light touch to all extremities. Motor strength: LUE: 5/5 to all major flexion & extension muscle groups. LLE: 5/5 to all major flexion & extension muscle groups. RUE: Deltoid 4/5, triceps 4/5, biceps 4 to 4+/5. Patient states that weakness is chronic. RLE: Iliopsoas 4+/5, quadriceps 4+/5, hamstrings 4 to 4+/5, gastrocnemius 5/ 5, tibialis anterior 4+/5, extensor hallucis 4 to 4+/5, extensor digitorum 4 to 4+/5. The patient is initially able to give strong resistance with toes but then cannot. Patient states that weakness is chronic. (Ronny Paris) Lab, Micro, Other Results Laboratory Tests Test 12/20/16 11:27 12/21/16 04:50 12/21/16 15:23 12/22/16 03:51 White Blood Count 9.4 TH/MM3 8.6 TH/MM3 Red Blood Count 4.21 MIL/MM3 4.23 MIL/MM3 Hemoglobin 11.8 GM/DL 11.7 GM/DL Hematocrit 34.9 % 35.4 % Mean Corpuscular Volume 83.0 FL 83.7 FL Mean Corpuscular Hemoglobin 28.1 PG 27.6 PG Mean Corpuscular Hemoglobin Concent 33.8 % 33.0 % Red Cell Distribution Width 14.9 % 14.7 % Platelet Count 277 TH/MM3 316 TH/MM3 Mean Platelet Volume 7.6 FL 7.0 FL Hematology Comments Blood Urea Nitrogen 22 MG/DL 26 MG/DL Creatinine 1.36 MG/DL 1.40 MG/DL 1.53 MG/DL Random Glucose 78 MG/DL 92 MG/DL Calcium Level 8.7 MG/DL 9.0 MG/DL Sodium Level 138 MEQ/L 138 MEQ/L Potassium Level 3.9 MEQ/L 3.9 MEQ/L Chloride Level 102 MEQ/L 101 MEQ/L Carbon Dioxide Level 27.5 MEQ/L 30.2 MEQ/L Anion Gap 9 MEQ/L 7 MEQ/L Estimat Glomerular Filtration Rate 54 ML/MIN 52 ML/MIN 47 ML/MIN Neutrophils (%) (Auto) 75.7 % Lymphocytes (%) (Auto) 12.7 % Monocytes (%) (Auto) 9.7 % Eosinophils (%) (Auto) 1.7 % Basophils (%) (Auto) 0.2 % Neutrophils # (Auto) 6.5 TH/MM3 Lymphocytes # (Auto) 1.1 TH/MM3 Monocytes # (Auto) 0.8 TH/MM3 Eosinophils # (Auto) 0.1 TH/MM3 Basophils # (Auto) 0.0 TH/MM3 CBC Comment DIFF FINAL Differential Comment Test 12/23/16 08:24 White Blood Count 5.4 TH/MM3 Red Blood Count 4.32 MIL/MM3 Hemoglobin 12.2 GM/DL Hematocrit 36.2 % Mean Corpuscular Volume 83.7 FL Mean Corpuscular Hemoglobin 28.1 PG Mean Corpuscular Hemoglobin Concent 33.6 % Red Cell Distribution Width 14.7 % Platelet Count 303 TH/MM3 Mean Platelet Volume 7.8 FL (Ronny Paris) Medical Decision Making Impression and Plan Impression: 1. Findings are strongly suggestive of C5 6 discitis-osteomyelitis with possible small prevertebral abscess. 2. Hypertension 3. Rheumatoid arthritis Postoperative Diagnosis: (1) Osteomyelitis of cervical spine C5-6 discitis-osteomyelitis Wound culture with Pseudomonas aeruginosa, all other cultures negative so far. Patient is doing well and is neurologically stable. Hypertension improved. POD #6 () s/p: C5-6 anterior cervical discectomy, debridement osteomyelitis Plan: Plan of care discussed with the patient and Nursing. Primary management per Family Medicine. Antibiotics per Infectious Disease. Neuro checks. Maintain cervical collar when HOB is > 30 degrees or when OOB. Diet as tolerated. PT/OT eval & tx. Okay to transfer to a regular med/surg floor from NSGY's perspective. (Ronny Paris) Attending Statement The exam, history, and the medical decision-making described in the above note were completed with the assistance of the mid-level provider. I reviewed and agree with the findings presented. I attest that I had a [id number] encounter with the patient on the same day, and personally performed and documented my assessment and findings in the medical record. Neurologic exam remained stable Tolerating diet PT Arrange outpatient antibiotics (Ricardo Mcdonald MD) Ronny Paris Dec 23, 2016 09:51 Ricardo Mcdonald MD Jan 04, 2017 05:41
[2016-12-23 10:45] LABS: ALKALINE PHOSPHATASE 288 U/L (45-117); TOTAL BILIRUBIN ADULT 0.2 MG/DL (0.2-1.0)
--- NOTE | 2016-12-23 10:49 | HHI.FPPN ---
Subjective Remarks Patient was visited by his 8-year-old daughter last night, which made him very happy. He did have one episode of hypertension up to 208/, which resolved with pain medication. Patient is still hypertensive, but blood pressure is mostly stable on oral medications. Patient also reports that his current pain medication regimen the best pain control he has had since being in the hospital. Patient vocalizes understanding of the instructions about how to use the c-collar. (Kirby Garcia MD R2) Objective Vitals Vital Signs Date Time Temp Pulse Resp B/P (MAP) Pulse Ox O2 Delivery O2 Flow Rate FiO2 12/23/16 10:00 55 12/23/16 08:00 55 12/23/16 08:00 98.1 55 15 156/91 (112) 97 12/23/16 06:42 18 12/23/16 06:42 18 12/23/16 06:11 10 12/23/16 06:00 55 12/23/16 04:00 98.6 62 18 208/93 (131) 12/23/16 04:00 62 12/23/16 03:31 10 12/23/16 02:33 99 21 12/23/16 02:00 69 12/23/16 01:02 12 12/23/16 00:00 68 12/23/16 00:00 98.6 68 12 173/85 (114) 97 12/22/16 22:00 66 12/22/16 20:00 65 12/22/16 20:00 98.5 65 12 173/85 (114) 97 12/22/16 16:00 98.0 69 13 152/81 (104) 97 12/22/16 16:00 69 12/22/16 12:00 98.0 85 23 154/75 (101) 98 12/22/16 12:00 85 I/O 12/22/16 12/22/16 12/22/16 12/23/16 12/23/16 12/23/16 07:00 15:00 23:00 07:00 15:00 23:00 Intake Total 400 ml 100 ml 550 ml 440 ml Output Total 1475 ml 1050 ml 700 ml Balance -1075 ml 100 ml -500 ml -260 ml Intake Oral 400 ml 350 ml 240 ml IV Total 100 ml 200 ml 200 ml Output Urine Total 1475 ml 1050 ml 700 ml # Voids 4 # Bowel Movements 0 0 0 (Kirby Garcia MD R2) Result Diagram: 12/23/16 0824 12/22/16 0351 Imaging Last Impressions Head Magnetic Resonance Angiography 12/19/16 0000 Signed Impressions: Service Date/Time: Monday, December 19, 2016 15:25 - CONCLUSION: Unremarkable exam. Kirby López MD Head CT 12/19/16 0000 Signed Impressions: Service Date/Time: Monday, December 19, 2016 02:31 - CONCLUSION: No acute findings in the brain. Bernabe Nicole MD Carotid Artery Ultrasound 12/19/16 0000 Signed Impressions: Service Date/Time: Monday, December 19, 2016 08:22 - CONCLUSION: 1. Mild to moderate atherosclerotic plaque bilaterally, as above. However, Doppler assessment indicates less than 50%% stenosis within both internal carotid arteries. 2. There is antegrade flow within both vertebral arteries. Jaylan Mayer MD Brain MRI 12/19/16 0000 Signed Impressions: Service Date/Time: Monday, December 19, 2016 15:25 - CONCLUSION: 1. No acute hemorrhage or stroke. 2. Extensive abnormal white matter signal which has progressed mildly since the prior study. 3. Chronic opacification of the right maxillary sinus is again noted. Kirby López MD Abdomen X-Ray 12/19/16 Signed Impressions: Service Date/Time: Monday, December 19, 2016 09:54 - CONCLUSION: Mild gaseous distention of the colon with stool in the right colon. No acute finding is identified. Jaylan Mayer MD Cervical Spine MRI 12/17/16 0935 Signed Impressions: Service Date/Time: November 09:58 - CONCLUSION: 1. Extensive marrow edema and enhancement in C5 and C6 with destruction of the disc interspace and some fluid in the area of the disc interspace. Findings are most characteristic of an osteomyelitis probably with a previous associated discitis. Also questionable early involvement of C4 inferiorly and C7 superiorly. There is also edema and inflammation around the posterior elements. There is mild canal stenosis between C4 and C7 but no cord edema identified. No enhancing epidural fluid collections to suggest epidural abscess. Neel Lal MD Cervical Spine X-Ray 12/17/16 0000 Signed Impressions: Service Date/Time: November 18:16 - CONCLUSION: Pointer is at C5/C6. Jaylan Eid MD Cervical Spine CT 12/17/16 0000 Signed Impressions: Service Date/Time: November 07:08 - CONCLUSION: 1. Abnormal C5-C6 level with endplate destruction and irregularity with associated kyphosis. This appearance is nonspecific but may related to prior infection. Based on the appearance, acute discitis is felt unlikely. However, since there is questionable prevertebral fluid near this level suggest correlation for any clinical signs of infection. MRI could offer additional characterization, if needed. 2. Partial fusion between C6-C7 possibly related to a similar process has occurred at C5-C6. 3. There is degenerative disease disease at C4-C5 and there is grade one anterolisthesis at C3-C4 secondary to right facet arthrosis. Jaylan Mayer MD Objective Remarks GENERAL: Well-nourished, well-developed patient. Patient is sleepy as he is finishing his breakfast. SKIN: Warm and dry. HEAD: Normocephalic. EYES: No scleral icterus. No injection or drainage. NECK: Patient is lying in bed with head of bed elevated about 30. Patient with c-collar off and Steri-Strips over the anterior neck that are clean, dry, intact. CARDIOVASCULAR: Regular rate and rhythm without murmurs, gallops, or rubs. RESPIRATORY: Breath sounds equal bilaterally. No accessory muscle use. GASTROINTESTINAL: +BS, Abdomen non-tender, no distention no guarding EXTREMITIES: No cyanosis, or edema, or calf tenderness. NEUROLOGICAL: Awake, alert, and oriented x 3. Non-focal. Normal speech. (Kirby Garcia MD R2) A/P Assessment and Plan 61 YO male with MRI positive for osteomyelitis of cervical spine and epidural abscess ruled out for now. Neurosurgery took pt to OR on 12/16/16 for exploration and bone biopsy, growing pseudomonas from culture. ID has seen and started Cefepime and Levaquin after surgery. Anticipate long-term IV antibiotics. Unable to discharge patient with long-term IV access given history of IVDU. 12/19/16, there was c/f CVA in the context of hypertensive urgency, so CVA w/u initiated; results negative. Discharge Planning per ID and neurosurgery rec's (Kirby Garcia MD R2) Attending Attestation Pt. examined and case discussed with resident physicians. I have read the above note and agree with the assessment and plan as discussed with me. I was involved in all medical decision making for this patient. Jeffery Wright MD (Jeffery Wright MD) Problem List: (1) Osteomyelitis of cervical spine ICD Codes: M46.22 - Osteomyelitis of vertebra, cervical region Status: Acute Plan: MRI positive for osteomyelitis of cervical spine and negative for epidural abscess. Patient is POD #5 () s/p C5-6 anterior cervical discectomy, debridement osteomyelitis and biopsy culture growing pseudomonas. -Neurosurgery consulted and appreciated Continue PT/OT eval & tx. PT recommends home with no PT Neuro checks maintain cervical collar when the HOB is greater than 30 degrees or if he is out of bed. ok to transfer to med/surg floor -ID has seen pt and plan is: Given that the patient is growing Pseudomonas from culture, continue cefepime and Levaquin. Anticipate long-term IV antibiotics 2-D echo: EF 50-55% -Tylenol for fever -Pain control: Stop Scheduled acetaminophen 1 g IV every 6 hours because of increase in LFT's, Toradol 15 mg every 6 hours, home dose of Dilaudid 8 mg po q6h -Roxicodone for pain 1-10, Dilaudid 2mg IV q2h for breakthrough pain -Ativan 1 mg IV push every 2 hours when necessary for anxiety -Methocarbamol/Robaxin 500 mg by mouth every 8 hours when necessary for muscle spasm -Simethicone -Mary Lou-colace -Other anticonstipation medications when necessary -Blood cx NGTD -Daily CBC, BMP -Monitor vitals -Pseudomonas is growing in the biopsy, negative blood cultures. - UDS positive for opiates (home dilaudid) and benzos (UDS was drawn BEFORE Ativan given) - We suspect Benzo abuse before admission - Pseudomonas is the second most common organism seen in IV drug abusers (2) Hypertensive urgency ICD Codes: I16.0 - Hypertensive urgency Status: Acute Plan: Patient is persistently hypertensive. There was c/f CVA in the am on . Neurology consult appreciated: CVA w/u negative. -Nicardipine drip stopped; transitioned to oral antihypertensive medications as below -neuro and vitals checks as above (3) Red stool ICD Codes: R19.5 - Other fecal abnormalities Plan: Patient reports having red in his stools on 12/20. Hgb stable. -Hemoccult (4) Hypertension ICD Codes: I10 - Essential (primary) hypertension Status: Chronic Plan: Elevated BP on admission to 212/110 with bradycardia to 53. still HTNive overnight but controlled on oral medications without the Cardene drip -nicardipine drip stopped -Lisinopril 40 mg day -Norvasc 10 mg day -Increased Clonidine from 0.1 mg to 0.2 by mouth every 8 hours -Hydralazine 50 mg by mouth every 6 hours -Clonidine 0.1 mg PRN for blood pressure over 160/95 -Hydralazine 20 mg IV every 4 hours PRN blood pressure over 170/100 -Vasotec 1.25 mg IV push every 6 hours when necessary for hypertension over 180/ 105 (5) Sore throat ICD Codes: J02.9 - Acute pharyngitis, unspecified Status: Acute Plan: -Chloraseptic [place] PRN for sore throat -Magic mouthwash 4 times a day (6) FEN/GI/PPx Status: Acute Plan: Fluids: none GI: no PPI indicated; zofran 4 mg IV PRN for nausea Diet: Regular basic DVT PPx: heparin q8h, SCDs Constipation: Mary Lou-colace, and other medications PRN Activity: OOB ad darinel with c-collar (Kirby Garcia MD R2) Problem Qualifiers (1) Hypertension: Qualified Codes: I10 - Essential (primary) hypertension Kirby Garcia MD R2 Dec 23, 2016 10:49 Jeffery Wright MD Dec 23, 2016 21:24
[2016-12-23 10:58] LABS: ALT (GPT) 99 U/L (12-78); ANION GAP 6 MEQ/L (5-15); AST (GOT) 132 U/L (15-37); BICARBONATE 28.4 MEQ/L (21.0-32.0); BLOOD UREA NITROGEN 28 MG/DL (7-18); CHLORIDE 102 MEQ/L (98-107); GLOMERULAR FILTRATION RATE 45 ML/MIN (>89); POTASSIUM 4.3 MEQ/L (3.5-5.1); SODIUM (NA) 136 MEQ/L (136-145)
[2016-12-23] MEDS: CEFEPIME INJ 2,000 MG in SODIUM CHLORIDE 0.9% INJ 100 ML IV SCH (11:01)
--- NOTE | 2016-12-23 13:53 | HHI.PR ---
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
--- NOTE | 2016-12-23 23:27 | HHI.IDPN ---
Subjective Subjective Remarks Pt seen arounf 1330 today delayed entry co neck pain, stable afebrile Antibiotics cefepime levaquine Allergies: Coded Allergies: simvastatin (Unverified Allergy, Severe, Joint Pain, 11/10/16) COULD NOT TOLERATE STATINS Objective . Vital Signs Date Time Temp Pulse Resp B/P (MAP) Pulse Ox O2 Delivery O2 Flow Rate FiO2 12/23/16 20:48 21 12/23/16 20:00 98.8 58 15 177/43 (87) 12/23/16 16:00 97.6 66 22 151/88 (109) 98 12/23/16 12:00 98.4 73 18 144/65 (91) 98 12/23/16 10:00 55 12/23/16 08:00 55 12/23/16 08:00 98.1 55 15 156/91 (112) 97 12/23/16 06:42 18 12/23/16 06:42 18 12/23/16 06:11 10 12/23/16 06:00 55 12/23/16 04:00 98.6 62 18 208/93 (131) 12/23/16 04:00 62 12/23/16 03:31 10 12/23/16 02:33 99 21 12/23/16 02:00 69 12/23/16 01:02 12 12/23/16 00:00 68 12/23/16 00:00 98.6 68 12 173/85 (114) 97 12/23/16 12/23/16 12/24/16 15:00 23:00 07:00 Intake Total 900 ml Output Total 800 ml Balance 100 ml Intake Oral 600 ml IV Total 300 ml Output Urine Total 800 ml # Bowel Movements 0 . Laboratory Tests Test 12/23/16 08:24 White Blood Count 5.4 TH/MM3 Red Blood Count 4.32 MIL/MM3 Hemoglobin 12.2 GM/DL Hematocrit 36.2 % Mean Corpuscular Volume 83.7 FL Mean Corpuscular Hemoglobin 28.1 PG Mean Corpuscular Hemoglobin Concent 33.6 % Red Cell Distribution Width 14.7 % Platelet Count 303 TH/MM3 Mean Platelet Volume 7.8 FL Laboratory Tests Test 12/22/16 03:51 12/23/16 08:24 Blood Urea Nitrogen 26 MG/DL 28 MG/DL Creatinine 1.53 MG/DL 1.59 MG/DL Random Glucose 92 MG/DL 87 MG/DL Calcium Level 9.0 MG/DL 9.0 MG/DL Sodium Level 138 MEQ/L 136 MEQ/L Potassium Level 3.9 MEQ/L 4.3 MEQ/L Chloride Level 101 MEQ/L 102 MEQ/L Carbon Dioxide Level 30.2 MEQ/L 28.4 MEQ/L Anion Gap 7 MEQ/L 6 MEQ/L Estimat Glomerular Filtration Rate 47 ML/MIN 45 ML/MIN Total Protein 7.4 GM/DL Albumin 2.4 GM/DL Alkaline Phosphatase 288 U/L Aspartate Amino Transf (AST/SGOT) 132 U/L Alanine Aminotransferase (ALT/SGPT) 99 U/L Total Bilirubin 0.2 MG/DL Imaging Last Impressions Head Magnetic Resonance Angiography 12/19/16 0000 Signed Impressions: Service Date/Time: Monday, December 19, 2016 15:25 - CONCLUSION: Unremarkable exam. Kirby López MD Head CT 12/19/16 0000 Signed Impressions: Service Date/Time: Monday, December 19, 2016 02:31 - CONCLUSION: No acute findings in the brain. Bernabe Nicole MD Carotid Artery Ultrasound 12/19/16 0000 Signed Impressions: Service Date/Time: Monday, December 19, 2016 08:22 - CONCLUSION: 1. Mild to moderate atherosclerotic plaque bilaterally, as above. However, Doppler assessment indicates less than 50%% stenosis within both internal carotid arteries. 2. There is antegrade flow within both vertebral arteries. Jaylan Mayer MD Brain MRI 12/19/16 0000 Signed Impressions: Service Date/Time: Monday, December 19, 2016 15:25 - CONCLUSION: 1. No acute hemorrhage or stroke. 2. Extensive abnormal white matter signal which has progressed mildly since the prior study. 3. Chronic opacification of the right maxillary sinus is again noted. Kirby López MD Abdomen X-Ray 12/19/16 0000 Signed Impressions: Service Date/Time: Monday, December 19, 2016 09:54 - CONCLUSION: Mild gaseous distention of the colon with stool in the right colon. No acute finding is identified. Jaylan Mayer MD Cervical Spine MRI 12/17/16 0935 Signed Impressions: Service Date/Time: November 09:58 - CONCLUSION: 1. Extensive marrow edema and enhancement in C5 and C6 with destruction of the disc interspace and some fluid in the area of the disc interspace. Findings are most characteristic of an osteomyelitis probably with a previous associated discitis. Also questionable early involvement of C4 inferiorly and C7 superiorly. There is also edema and inflammation around the posterior elements. There is mild canal stenosis between C4 and C7 but no cord edema identified. No enhancing epidural fluid collections to suggest epidural abscess. Neel Lal MD Cervical Spine X-Ray 12/17/16 0000 Signed Impressions: Service Date/Time: November 18:16 - CONCLUSION: Pointer is at C5/C6. Jaylan Eid MD Cervical Spine CT 12/17/16 0000 Signed Impressions: Service Date/Time: November 07:08 - CONCLUSION: 1. Abnormal C5-C6 level with endplate destruction and irregularity with associated kyphosis. This appearance is nonspecific but may related to prior infection. Based on the appearance, acute discitis is felt unlikely. However, since there is questionable prevertebral fluid near this level suggest correlation for any clinical signs of infection. MRI could offer additional characterization, if needed. 2. Partial fusion between C6-C7 possibly related to a similar process has occurred at C5-C6. 3. There is degenerative disease disease at C4-C5 and there is grade one anterolisthesis at C3-C4 secondary to right facet arthrosis. Jaylan Mayer MD Physical Exam CONSTITUTIONAL/GENERAL: This is an adequately nourished patient, in no apparent distress. TUBES/LINES/DRAINS: SKIN: No jaundice, rashes, or lesions. NECK: C collar in place Incision looks clean, dry CARDIOVASCULAR: Regular rate and rhythm without murmurs, gallops, or rubs. . RESPIRATORY/CHEST: Symmetric, unlabored respirations. Clear to auscultation. GASTROINTESTINAL: Abdomen soft, mildly to moderately tender, markedly distended. Bowel sounds diminished MUSCULOSKELETAL: Extremities without clubbing, cyanosis, or edema. NEUROLOGICAL: Awake and alert. Motor and sensory grossly within normal limits. Follows commands. Clear speech . Moves all extremities. PSYCHIATRIC: No obvious anxiety/depression. no apparent hallucinations or other psychotic thought process. Assessment & Plan Remarks C spine diskitis, osteo - s/p surgery - Pseudomonas from clx No bactremia 2 D echo w/o vegetations MSSA cSSTI RUE in May 2016 REC's: cont cefepime cont levaquine OK to dc to SNF [facility][[place] long terma IV followed by po Discussed Condition With Shayla Cisneros MD Dec 23, 2016 23:27
[2016-12-24] VITALS (7 sets, daily range): BP systolic 134–185; BP diastolic 74–97; PULSE 57–80; RESP 11–27; TEMP 97.8–98.7; O2SAT 99
[2016-12-24] MEDS: HYDROmorphone HCL PF 2 MG/ML VIAL IV PUSH PRN ×4 (00:45→15:01)
[2016-12-24] MEDS: HYDROmorphone HCL 4 MG TAB PO SCH ×3 (04:20→16:16)
[2016-12-24] MEDS: hydrALAZINE HCL 20 MG/ML VIAL IV PUSH PRN (04:21)
[2016-12-24 05:46] LABS: BICARBONATE 29.3 MEQ/L (21.0-32.0); POTASSIUM 4.4 MEQ/L (3.5-5.1)
[2016-12-24] MEDS: SIMETHICONE 125 MG CHEWABLE TAB PO SCH ×3 (06:00→14:00)
[2016-12-24] MEDS: hydrALAZINE HCL 50 MG TAB PO SCH ×3 (06:47→16:16)
[2016-12-24] MEDS: cloNIDine HCL 0.1 MG TAB PO SCH ×2 (06:47→13:52)
[2016-12-24] MEDS: KETOROLAC TROMETHAMINE 30 MG/ML (IVP) VIAL IV PUSH SCH ×3 (06:47→17:19)
[2016-12-24] MEDS: LEVOFLOXACIN 750 MG TAB PO SCH (08:42)
[2016-12-24] MEDS: DOCUSATE SODIUM 50 MG/SENNA 8.6 MG TAB PO SCH (08:42)
[2016-12-24] MEDS: ASPIRIN 325 MG TAB PO SCH (08:42)
[2016-12-24] MEDS: LISINOPRIL 20 MG TAB PO SCH (08:42)
[2016-12-24] MEDS: SODIUM CHLORIDE 0.9% FLUSH 5 ML FLUSH IVF SCH (08:43)
[2016-12-24] MEDS: NYSTAT/DIPHENHY/LIDO MOUTHWASH (Adult) 120ML SWISH-SWAL SCH ×3 (08:43→17:19)
--- NOTE | 2016-12-24 09:00 | HHI.FPPN ---
Subjective Remarks Patient reports that overnight he had significant back pain. Patient still hypertensive overnight. Otherwise, he denies any complaints. He reports that he recently had 2 bowel movements. He denied any red or black in these bowel movements. (Kirby Garcia MD R2) Objective Vitals Vital Signs Date Time Temp Pulse Resp B/P (MAP) Pulse Ox O2 Delivery O2 Flow Rate FiO2 12/24/16 08:03 99 21 12/24/16 08:00 97.8 73 14 157/88 (111) 12/24/16 07:54 18 12/24/16 04:00 98.1 58 12 185/88 (120) 12/24/16 00:00 98.6 57 11 149/93 (111) 12/23/16 20:48 21 12/23/16 20:00 98.8 58 15 177/43 (87) 12/23/16 16:00 97.6 66 22 151/88 (109) 98 12/23/16 12:00 98.4 73 18 144/65 (91) 98 12/23/16 10:00 55 I/O 12/23/16 12/23/16 12/23/16 12/24/16 12/24/16 12/24/16 07:00 15:00 23:00 07:00 15:00 23:00 Intake Total 440 ml 900 ml Output Total 700 ml 800 ml 925 ml Balance -260 ml 100 ml -925 ml Intake Oral 240 ml 600 ml IV Total 200 ml 300 ml Output Urine Total 700 ml 800 ml 925 ml # Bowel Movements 0 0 2 (Kirby Garcia MD R2) Result Diagram: 12/23/16 0824 12/24/16 0448 Imaging Last Impressions Head Magnetic Resonance Angiography 12/19/16 0000 Signed Impressions: Service Date/Time: Monday, December 19, 2016 15:25 - CONCLUSION: Unremarkable exam. Kirby López MD Head CT 12/19/16 0000 Signed Impressions: Service Date/Time: Monday, December 19, 2016 02:31 - CONCLUSION: No acute findings in the brain. Bernabe Nicole MD Carotid Artery Ultrasound 12/19/16 0000 Signed Impressions: Service Date/Time: Monday, December 19, 2016 08:22 - CONCLUSION: 1. Mild to moderate atherosclerotic plaque bilaterally, as above. However, Doppler assessment indicates less than 50%% stenosis within both internal carotid arteries. 2. There is antegrade flow within both vertebral arteries. Jaylan Mayer MD Brain MRI 12/19/16 Signed Impressions: Service Date/Time: Monday, December 19, 2016 15:25 - CONCLUSION: 1. No acute hemorrhage or stroke. 2. Extensive abnormal white matter signal which has progressed mildly since the prior study. 3. Chronic opacification of the right maxillary sinus is again noted. Kirby López MD Abdomen X-Ray 12/19/16 Signed Impressions: Service Date/Time: Monday, December 19, 2016 09:54 - CONCLUSION: Mild gaseous distention of the colon with stool in the right colon. No acute finding is identified. Jaylan Mayer MD Cervical Spine MRI 12/17/16 0935 Signed Impressions: Service Date/Time: November 09:58 - CONCLUSION: 1. Extensive marrow edema and enhancement in C5 and C6 with destruction of the disc interspace and some fluid in the area of the disc interspace. Findings are most characteristic of an osteomyelitis probably with a previous associated discitis. Also questionable early involvement of C4 inferiorly and C7 superiorly. There is also edema and inflammation around the posterior elements. There is mild canal stenosis between C4 and C7 but no cord edema identified. No enhancing epidural fluid collections to suggest epidural abscess. Neel Lal MD Cervical Spine X-Ray 12/17/16 Signed Impressions: Service Date/Time: November 18:16 - CONCLUSION: Pointer is at C5/C6. Jaylan Eid MD Cervical Spine CT 12/17/16 Signed Impressions: Service Date/Time: November 07:08 - CONCLUSION: 1. Abnormal C5-C6 level with endplate destruction and irregularity with associated kyphosis. This appearance is nonspecific but may related to prior infection. Based on the appearance, acute discitis is felt unlikely. However, since there is questionable prevertebral fluid near this level suggest correlation for any clinical signs of infection. MRI could offer additional characterization, if needed. 2. Partial fusion between C6-C7 possibly related to a similar process has occurred at C5-C6. 3. There is degenerative disease disease at C4-C5 and there is grade one anterolisthesis at C3-C4 secondary to right facet arthrosis. Jaylan Mayer MD Objective Remarks GENERAL: Well-nourished, well-developed patient. Patient is asleep but wakes up when he hears us after the room and is quickly back to his talkative self. SKIN: Warm and dry. HEAD: Normocephalic. EYES: No scleral icterus. No injection or drainage. NECK: Patient is lying in bed with head of bed elevated about 30. Patient with c-collar off and Steri-Strips over the anterior neck that are clean, dry, intact. CARDIOVASCULAR: Borderline bradycardic rate and regular rhythm without murmurs, gallops, or rubs. RESPIRATORY: Breath sounds equal bilaterally. No accessory muscle use. GASTROINTESTINAL: +BS, Abdomen non-tender, no distention no guarding EXTREMITIES: No cyanosis, or edema, or calf tenderness. NEUROLOGICAL: Awake, alert, and oriented x 3. Non-focal. Normal speech. Decreased strength in right upper extremity. (Kirby Garcia MD R2) A/P Assessment and Plan 61 YO male with MRI positive for osteomyelitis of cervical spine and epidural abscess ruled out for now. Neurosurgery took pt to OR on 12/16/16 for exploration and bone biopsy, growing pseudomonas from culture. ID has seen and started Cefepime and Levaquin after surgery. Anticipate long-term IV antibiotics. Unable to discharge patient with long-term IV access given history of IVDU. 12/19/16, there was c/f CVA in the context of hypertensive urgency, so CVA w/u initiated; results negative. Discharge Planning ID and neurosurgery are okay with patient being discharged to SNF for long-term IV antibiotics (Kirby Garcia MD R2) Attending Attestation Pt. examined and case discussed with resident physicians I have read the above note and agree with the assessment/plan as discussed with me I was involved in all medical decision making for this patient Jeffery Wright MD (Jeffery Wright MD) Problem List: (1) Osteomyelitis of cervical spine ICD Codes: M46.22 - Osteomyelitis of vertebra, cervical region Status: Acute Plan: MRI positive for osteomyelitis of cervical spine and negative for epidural abscess. Patient is POD #5 () s/p C5-6 anterior cervical discectomy, debridement osteomyelitis and biopsy culture growing pseudomonas. -Neurosurgery consulted and appreciated Continue PT/OT eval & tx. PT recommends home with no PT Neuro checks maintain cervical collar when the HOB is greater than 30 degrees or if he is out of bed. ok to transfer to SNF [facility] IV abx -ID has seen pt and plan is: Given that the patient is growing Pseudomonas from culture, continue cefepime and Levaquin. Anticipate long-term IV antibiotics followed by PO. 2-D echo: EF 50-55% ok to transfer to SNF for [place] [facility] IV abx -Tylenol for fever -Pain control: Stop Scheduled acetaminophen 1 g IV every 6 hours because of increase in LFT's, Toradol 15 mg every 6 hours, home dose of Dilaudid 8 mg po q6h -Roxicodone for pain 1-10, Dilaudid 2mg IV q2h for breakthrough pain -Ativan 1 mg IV push every 2 hours when necessary for anxiety -Methocarbamol/Robaxin 500 mg by mouth every 8 hours when necessary for muscle spasm -Simethicone -Mary Lou-colace -Other anticonstipation medications when necessary -Blood cx NGTD -Daily CBC, BMP -Monitor vitals -Pseudomonas is growing in the biopsy, negative blood cultures. - UDS positive for opiates (home dilaudid) and benzos (UDS was drawn BEFORE Ativan given) - We suspect Benzo abuse before admission - Pseudomonas is the second most common organism seen in IV drug abusers (2) Hypertensive urgency ICD Codes: I16.0 - Hypertensive urgency Status: Resolved Plan: Patient is persistently hypertensive. There was c/f CVA in the am on . Neurology consult appreciated: CVA w/u negative. -Nicardipine drip stopped; transitioned to oral antihypertensive medications as below -neuro and vitals checks as above (3) Red stool ICD Codes: R19.5 - Other fecal abnormalities Status: Resolved Plan: Patient reports having red in his stools on 12/20. Hgb stable. Denied on . Resolved. (4) Hypertension ICD Codes: I10 - Essential (primary) hypertension Status: Chronic Plan: Elevated BP on admission to 212/110 with bradycardia to 53. still HTNive overnight but controlled on oral medications without the Cardene drip -nicardipine drip stopped -Lisinopril 40 mg day -Norvasc 10 mg day -Increased Clonidine 0.2 by mouth every 8 hours -Hydralazine 50 mg by mouth increased to every 4 hours -Clonidine 0.1 mg PRN for blood pressure over 160/95 -Hydralazine 20 mg IV every 4 hours PRN blood pressure over 170/100 -Vasotec 1.25 mg IV push every 6 hours when necessary for hypertension over 180/ 105 (5) Sore throat ICD Codes: J02.9 - Acute pharyngitis, unspecified Status: Acute Plan: -Chloraseptic [place] PRN for sore throat -Magic mouthwash 4 times a day (6) FEN/GI/PPx Status: Acute Plan: Fluids: none GI: no PPI indicated; zofran 4 mg IV PRN for nausea Diet: Regular basic DVT PPx: heparin q8h, SCDs Constipation: Mary Lou-colace, and other medications PRN Activity: OOB ad darinel with c-collar (Kirby Garcia MD R2) Problem Qualifiers (1) Hypertension: Qualified Codes: I10 - Essential (primary) hypertension Kirby Garcia MD R2 Dec 24, 2016 09:00 Jeffery Wright MD Dec 24, 2016 14:47
[2016-12-24] MEDS: CEFEPIME INJ 2,000 MG in SODIUM CHLORIDE 0.9% INJ 100 ML IV SCH (12:19)
[2016-12-24] MEDS ORDERED: DILA8TAB4 PO (13:32)
[2016-12-24] MEDS ORDERED: OXYC-395 PO (13:32)
[2016-12-24] MEDS ORDERED: OXYC-392 PO (13:32)
[2016-12-24] MEDS ORDERED: ATIV2INJ2 IV PUSH (13:32)
[2016-12-24] MEDS ORDERED: HYDR2INJ6 IV PUSH (13:32)
--- NOTE | 2016-12-24 14:16 | HHI.DCPOC ---
Discharge Care Plan Diagnosis: (1) Osteomyelitis of cervical spine (2) Abscess (3) SELIN (acute kidney injury) (4) Hypertension Goals to Promote Your Health * To prevent worsening of your condition and complications * To maintain your health at the optimal level Directions to Meet Your Goals Take your medications as prescribed Follow your dietary instruction Follow activity as directed Keep your appointments as scheduled Take your immunizations and boosters as scheduled If your symptoms worsen call your PCP, if no PCP go to Urgent Care Center or Emergency Room Smoking is Dangerous to Your Health. Avoid second hand smoke Call the 24-hour hour crisis hotline for domestic abuse at Ashley Chavez MD R2 Dec 24, 2016 14:16
--- NOTE | 2016-12-24 15:17 | HHI.FF ---
Infusion Therapy Location of Infusion Therapy: [facility] Infusion Therapy Order Patient Information Patient Weight 64.9 kg Diagnosis: Diagnosis epidural abscess Coded Allergies: simvastatin (Unverified Allergy, Severe, Joint Pain, 11/10/16) COULD NOT TOLERATE STATINS Administer Medication Cefepime 2 grams IV q 8 hours Start Treatment: Dec 24, 2016 Stop Treatment: Jan 27, 2017 Additional Information Venous access: PICC Line Additional Instructions [x] Peripheral flush and dressing changes per protocol [x] Implanted port and central online content coordinator: * Implanted port: 10 ml Normal Saline followed by 5 ml Heparin 100 units/ml Heparin flush after each use and monthly to maintain. [] May leave port accessed during therapy. [] May leave peripheral site accessed for duration of therapy. [x] If patient has SOB or respiratory distress, check oxygen saturation. If less than 90% or clinical signs of respiratory distress, administer oxygen at 2 L/min. via nasal cannula and notify physician. [x] Anaphylaxis/Reaction orders: * Stop infusion. * Keep IV line open with saline flush. * Notify physician. * Monitor vital signs every 15 minutes until symptoms resolve. * Check Oxygen saturation; Oxygen at 2 L/min. via nasal cannula if less than 90% or clinical signs of respiratory distress. * Administer diphenhydramine (Benadryl) 25 mg IV STAT, (unless patient has received as pre-med). May repeat once, if necessary. * Solu-Cortef 250 mg IVP over 30-60 seconds, use 100 mg vials for each dissolution. * Epinephrine (1mg/1 ml) 0.3 mg subcutaneously or IVP now with any signs of respiratory distress. * Check with physician for new additional pre-med orders if patient is re- challenged or re-treated. [x] May remove PICC line when treatment complete, after confirming with Physician. [x] If the patient is admitted to the hospital, the ED, or transferred via [facility] , complete transfer form including medication reconciliation order sheet. Laboratory Tests Weekly Labs: CBC w/diff, Creatinine, LFT's (Hepatic function test), SED Rate Shayla Dumont MD Dec 24, 2016 15:17
[2016-12-24] MEDS ORDERED: CEFE2INJ9 IV (15:20)
[2016-12-24] MEDS ORDERED: EPIN1INJ21 SQ (15:20)
[2016-12-24] MEDS ORDERED: EPIN1INJ21 IV PUSH (15:20)
[2016-12-24] MEDS ORDERED: SOLU250I IV PUSH (15:20)
[2016-12-24] MEDS ORDERED: LEVA750T9 PO (15:39)
--- NOTE | 2016-12-24 15:41 | HHI.PR ---
Addendum to Inpatient Note Additional Information Pt need to complete 6 weeks of IV cefepime with concommitant Levaquine up to 8 weeks based on clincil radiological pic and ESR Treatment progress should be monitored by weekly ESR OK to dc to [facility] residents OPAT filled out PICCordered Shayla Dumont MD Dec 24, 2016 15:41
--- NOTE | 2016-12-28 10:45 | HHI.DS ---
Discharge Summary Admission Date Dec 17, 2016 at 13:13 Discharge Date: Dec 24, 2016 Admitting Diagnosis cervical osteomyelitis (1) Osteomyelitis of cervical spine Plan: MRI positive for osteomyelitis of cervical spine and negative for epidural abscess. Patient is POD #5 () s/p C5-6 anterior cervical discectomy, debridement osteomyelitis and biopsy culture growing pseudomonas. -Neurosurgery consulted and appreciated Continue PT/OT eval & tx. PT recommends home with no PT Neuro checks maintain cervical collar when the HOB is greater than 30 degrees or if he is out of bed. ok to transfer to SNF for [facility] IV abx -ID has seen pt and plan is: Given that the patient is growing Pseudomonas from culture, continue cefepime and Levaquin. Anticipate long-term IV antibiotics followed by PO. 2-D echo: EF 50-55% ok to transfer to SNF for [facility] IV abx -Tylenol for fever -Pain control: Stop Scheduled acetaminophen 1 g IV every 6 hours because of increase in LFT's, Toradol 15 mg every 6 hours, home dose of Dilaudid 8 mg po q6h -Roxicodone for pain 1-10, Dilaudid 2mg IV q2h for breakthrough pain -Ativan 1 mg IV push every 2 hours when necessary for anxiety -Methocarbamol/Robaxin 500 mg by mouth every 8 hours when necessary for muscle spasm -Simethicone -Mary Lou-colace -Other anticonstipation medications when necessary -Blood cx NGTD -Daily CBC, BMP -Monitor vitals -Pseudomonas is growing in the biopsy, negative blood cultures. - UDS positive for opiates (home dilaudid) and benzos (UDS was drawn BEFORE Ativan given) - We suspect Benzo abuse before admission - Pseudomonas is the second most common organism seen in IV drug abusers ICD Codes: M46.22 - Osteomyelitis of vertebra, cervical region Status: Resolved (2) Hypertensive urgency Plan: Patient is persistently hypertensive. There was c/f CVA in the am on . Neurology consult appreciated: CVA w/u negative. -Nicardipine drip stopped; transitioned to oral antihypertensive medications as below -neuro and vitals checks as above ICD Codes: I16.0 - Hypertensive urgency Status: Resolved (3) Red stool Plan: Patient reports having red in his stools on 12/20. Hgb stable. Denied on . Resolved. ICD Codes: R19.5 - Other fecal abnormalities Status: Resolved (4) Hypertension Plan: Elevated BP on admission to 212/110 with bradycardia to 53. still HTNive overnight but controlled on oral medications without the Cardene drip -nicardipine drip stopped -Lisinopril 40 mg day -Norvasc 10 mg day -Increased Clonidine 0.2 by mouth every 8 hours -Hydralazine 50 mg by mouth increased to every 4 hours -Clonidine 0.1 mg PRN for blood pressure over 160/95 -Hydralazine 20 mg IV every 4 hours PRN blood pressure over 170/100 -Vasotec 1.25 mg IV push every 6 hours when necessary for hypertension over 180/ 105 ICD Codes: I10 - Essential (primary) hypertension Status: Chronic (5) Sore throat Plan: -Chloraseptic [place] PRN for sore throat -Magic mouthwash 4 times a day ICD Codes: J02.9 - Acute pharyngitis, unspecified Status: Acute (6) FEN/GI/PPx Plan: Fluids: none GI: no PPI indicated; zofran 4 mg IV PRN for nausea Diet: Regular basic DVT PPx: heparin q8h, SCDs Constipation: Mary Lou-colace, and other medications PRN Activity: OOB ad darinel with c-collar Status: Acute Brief History Mr Beard is a 61 YO male w/PMHx HTN, CVA, CAD, [place], CAD and tobacco use s/p abscess I&D of right arm requiring vascular repair of right brachial artery with right greater saphenous graft bypass in May 2016 who presented with at least 4 days of increasing pain in his neck. Pt stated pain is incredible and makes him "want to put a gun to his head" it is so bad. Describes pain as throbbing in nature and constant; his PO dilaudid and ibuprofen (lots of ibuprofen) bring pain relief while standing up makes it worse. Pt denies IVDU, CP, SOB, N/D, dizziness, fever, chills, but had nonbloody, nonbilious emesis x3. MRI of cervical spine shows osteomyelitis of cervical spine; neurosurgery performed surgical exploration and bone bx; ID has been consulted. He is lying in bed and feeling his pain is reasonably controlled with his home po dilaudid and iv as needed. He is ready to transfer to the floor as he is hemodynamically stable today. Per ID, he needs to continue current abx until 3 days of negative cultures of bone and blood. If he has positive cultures he will likely need a very extended course of weeks of abx. CBC/BMP: 12/24/16 0448 PE at Discharge GENERAL: Well-nourished, well-developed patient. Patient is asleep but wakes up when he hears us after the room and is quickly back to his talkative self. SKIN: Warm and dry. HEAD: Normocephalic. EYES: No scleral icterus. No injection or drainage. NECK: Patient is lying in bed with head of bed elevated about 30. Patient with c-collar off and Steri-Strips over the anterior neck that are clean, dry, intact. CARDIOVASCULAR: Borderline bradycardic rate and regular rhythm without murmurs, gallops, or rubs. RESPIRATORY: Breath sounds equal bilaterally. No accessory muscle use. GASTROINTESTINAL: +BS, Abdomen non-tender, no distention no guarding EXTREMITIES: No cyanosis, or edema, or calf tenderness. NEUROLOGICAL: Awake, alert, and oriented x 3. Non-focal. Normal speech. Decreased strength in right upper extremity. Pt Condition on Discharge: Stable Discharge Disposition: Discharge to SNF Discharge Instructions DIET: Follow Instructions for: As Tolerated, No Restrictions Activities you can perform: See Additionl Instruction Other Activity Instructions: Use Collar when not at 30degree angle Follow up Referrals: Neurosurgery - 2 Weeks PCP Follow-up - 2 Weeks SNF/CUSTODIAL/ with [facility] New Medications: Cefepime Inj (Maxipime Inj) 2 Gram Inj 2 GM IV Q8H for Infection for 35 Days, VIAL 0 Refills Epinephrine Inj (Epinephrine Inj) 1 Mg/Ml (1 Ml) Inj 0.3 MG IV PUSH ONCE PRN for ALLERGIC REACTION, #1 VIAL Epinephrine Inj (Epinephrine Inj) 1 Mg/Ml (1 Ml) Inj 0.3 MG SQ ONCE PRN for ALLERGIC REACTION, #1 VIAL Give with any signs of respiratory distress. Hydrocortisone Inj (Solu-Cortef Inj) 250 Mg/2 Ml Inj 250 MG IV PUSH ONCE PRN for ALLERGIC REACTION, #1 VIAL 0 Refills Give over 30-60 seconds. Levofloxacin (Levaquin) 750 Mg Tablet 750 MG PO DAILY for Infection for 60 Days, #60 TAB 0 Refills Hydromorphone (Hydromorphone Dosette) 2 Mg/Ml Inj 2 MG IV PUSH Q2HR PRN for BREAKTHROUGH PAIN for 30 Days, INJECTION Lorazepam Inj (Ativan Inj) 2 Mg/Ml Inj 1 MG IV PUSH Q2H PRN for anxiety for 30 Days, INJECTION Oxycodone (Oxycodone) 10 Mg Tab 20 MG PO Q4HR PRN for PAIN SCALE 6 TO 10 for 30 Days, #120 TAB Oxycodone (Oxycodone) 5 Mg Tab 10 MG PO Q4H PRN for PAIN SCALE 1 TO 5 for 30 Days, #120 TAB Continued Medications: Hydromorphone (Dilaudid) 8 Mg Tab 8 MG PO Q6H PRN for Pain Management for 30 Days, #120 TAB 0 Refills (This prescription has been renewed) Discontinued Medications: Amlodipine (Norvasc) 5 Mg Tab 5 MG PO DAILY for Blood Pressure Management, #30 TAB 0 Refills Lisinopril (Lisinopril) 10 Mg Tab 10 MG PO DAILY, #30 TAB 0 Refills Additional Information Mr Beard is a 61 YO male w/PMHx HTN, CVA, CAD, [place], CAD and tobacco use s/p abscess I&D of right arm requiring vascular repair of right brachial artery with right greater saphenous graft bypass in May 2016 who presented with at least 4 days of increasing pain in his neck. MRI of cervical spine shows osteomyelitis of cervical spine; neurosurgery performed surgical exploration and bone bx; ID has been consulted. ID gave confirmation of ok to d/c to SNF on 6weeks of IV cefepime and Levaquine up to 8weeks depending on radiology f/u and ESR. Weekly ESR will be monitored. Ashley Chavez MD R2 Dec 28, 2016 10:44
== END 2016-12-24 18:09 | DRG 519 ==
LOC: NEPC 06:03 → NEDA 13:13 → N03A 21:39 → N05B 12-18 14:13 → N03A 12-19 04:47
PROVIDERS: ADMIT Family Medicine; ATTEND Family Medicine
PROC: 0PB30ZZ Excision of Cervical Vertebra, Open Approach (ICD-10-PCS; 2016-12-17)
PROC: 0RB30ZZ Excision of Cervical Vertebral Disc, Open Approach (ICD-10-PCS; principal; 2016-12-17 17:20)
DX: M46.22 Osteomyelitis of vertebra, cervical region (principal); B96.5 Pseudomonas (aeruginosa) (mallei) (pseudomallei) as the cause of diseases classified elsewhere; N17.9 Acute kidney failure, unspecified; M46.42 Discitis, unspecified, cervical region; I10 Essential (primary) hypertension; I25.10 Atherosclerotic heart disease of native coronary artery without angina pectoris; Z86.73 Personal history of transient ischemic attack (TIA), and cerebral infarction without residual deficits; I25.2 Old myocardial infarction; F43.10 Post-traumatic stress disorder, unspecified; I16.0 Hypertensive urgency; H53.8 Other visual disturbances; K59.00 Constipation, unspecified; J02.9 Acute pharyngitis, unspecified; R19.5 Other fecal abnormalities; F17.210 Nicotine dependence, cigarettes, uncomplicated; Z86.14 Personal history of Methicillin resistant Staphylococcus aureus infection; Z86.19 Personal history of other infectious and parasitic diseases; Z85.46 Personal history of malignant neoplasm of prostate; Z92.21 Personal history of antineoplastic chemotherapy; Z92.3 Personal history of irradiation
CPT/HCPCS: 70450; 70544; 70551; 72020; 72125; 72156; 74000; 76000; 76937; 80048; 80053; 80061; 80307; 82565; 82805; 82948; 83036; 83605; 85025; 85027; 87015; 87040; 87070; 87077; 87102; 87116; 87186; 87205; 87206; 87641; 93306; 93880; 94150; 96361; 96374; 96375; 96376; A9577; J0131; J0360; J0690; J0692; J1100; J1170; J1580; J1644; J1885; J2060; J2250; J2405; J2710; J3370; J3480; J7030; J7050; J7120; J7613; L0150; L0172

== ENCOUNTER 2017-01-04 22:00 | Emergency (ER) | payer MEDICARE, OTHER ==
[~2017-01-04] VITALS: Ht 177.8 cm; Wt 60.0 kg
[~2017-01-04 22:00] MED LIST changes: -AMLO5 PO; +ATIV2INJ2 IV PUSH; +CEFE2INJ9 IV; +EPIN1INJ21 IV PUSH; +EPIN1INJ21 SQ; +HYDR2INJ6 IV PUSH; +LEVA750T9 PO; -LISI10TA3 PO; +OXYC-392 PO; +OXYC-395 PO; +SOLU250I IV PUSH
[2017-01-04 22:02] VITALS: BP 179/92; PULSE 96; RESP 18; TEMP 98.2; O2SAT 94
--- NOTE | 2017-01-04 22:46 | PD ---
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 He reports that this evening after receiving his third dose of cefepime for the day he attempted to flush his PICC line and it was clogged. Nursing staff attempted to flush it again upon arrival here and this was unsuccessful. The patient denies pain. Symptoms are aggravated by inability to flush PICC line, no alleviating factors. He denies any other complaints at this time. PFSH Past Medical History Arthritis: Yes Asthma: No Autoimmune Disease: No Blood Disorders: No Anxiety: Yes Depression: No Heart Rhythm Problems: No Cancer: Yes (PROSTATE) Cardiovascular Problems: Yes (CAD) High Cholesterol: No Chemotherapy: Yes (PROSTATE CA) Chest Pain: Yes Congestive Heart Failure: No COPD: No Cerebrovascular Accident: Yes (X3) Coronary Artery Disease: Yes Diabetes: No Diminished Hearing: No Endocrine: No Gastrointestinal Disorders: Yes GERD: No Genitourinary: No Headaches: No Hepatitis: Yes (HEP C) Hiatal Hernia: No Hypertension: Yes Immune Disorder: Yes (HEP C) Kidney Stones: No Musculoskeletal: Yes Neurologic: Yes Psychiatric: Yes Reproductive: No Respiratory: Yes Immunizations Current: No Migraines: No Myocardial Infarction: Yes (2008) Radiation Therapy: Yes Renal Failure: No Seizures: No Sickle Cell Disease: No Sleep Apnea: Yes Thyroid Disease: No Ulcer: Yes Tetanus Vaccination: < 5 Years Past Surgical History Abdominal Surgery: No AICD: No Appendectomy: No Arteriovenous Shunt: No Cardiac Surgery: No Cholecystectomy: No Ear Surgery: No Endocrine Surgery: No Eye Surgery: Yes Genitourinary Surgery: No Gynecologic Surgery: No Insulin Pump: No Joint Replacement: Yes (L SHOULDER) Neurologic Surgery: Yes Oral Surgery: Yes Pacemaker: No Thoracic Surgery: Yes (RIGHT UPPER ARM ARTERY SURGERY) Other Surgery: Yes (PLASTIC SURGERY TO HEAD AND FACE ,) Social History Alcohol Use: No Tobacco Use: Yes (1 ppd) Substance Use: No Allergies-Medications (Allergen,Severity, Reaction): Coded Allergies: simvastatin (Unverified Allergy, Severe, Joint Pain, 01/04/17) COULD NOT TOLERATE STATINS Reported Meds & Prescriptions Reported Meds & Active Scripts Active Levaquin (Levofloxacin) 750 Mg Tablet 750 Mg PO DAILY 60 Days Epinephrine Inj 1 Mg/Ml (1 Ml) Inj 0.3 Mg SQ ONCE PRN Give with any signs of respiratory distress. Epinephrine Inj 1 Mg/Ml (1 Ml) Inj 0.3 Mg IV PUSH ONCE PRN Solu-Cortef Inj (Hydrocortisone Sodium Succinate) 250 Mg/2 Ml Inj 250 Mg IV PUSH ONCE PRN Give over 30-60 seconds. Maxipime Inj (Cefepime HCl) 2 Gram Inj 2 Gm IV Q8H 35 Days Ativan Inj (Lorazepam) 2 Mg/Ml Inj 1 Mg IV PUSH Q2H PRN 30 Days Oxycodone (Oxycodone HCl) 5 Mg Tab 10 Mg PO Q4H PRN 30 Days Oxycodone (Oxycodone HCl) 10 Mg Tab 20 Mg PO Q4HR PRN 30 Days Hydromorphone Dosette (Hydromorphone HCl) 2 Mg/Ml Inj 2 Mg IV PUSH Q2HR PRN 30 Days Dilaudid (Hydromorphone HCl) 8 Mg Tab 8 Mg PO Q6H PRN 30 Days Review of Systems Except as stated in HPI: all other systems reviewed are Neg Physical Exam Narrative GENERAL: Well-nourished male in no acute distress cervical collar in place SKIN: Warm and dry. HEAD: Atraumatic. Normocephalic. EYES: Pupils equal and round. No scleral icterus. No injection or drainage. ENT: No nasal bleeding or discharge. Mucous membranes pink and moist. NECK: Trachea midline. No JVD. CARDIOVASCULAR: Regular rate and rhythm. No murmur appreciated. RESPIRATORY: No accessory muscle use. Clear to auscultation. Breath sounds equal bilaterally. GASTROINTESTINAL: Abdomen soft, non-tender, nondistended. Hepatic and splenic margins not palpable. MUSCULOSKELETAL: No obvious deformities. PICC line noted on the left arm with no obvious extravasation of fluids and no tenderness to palpation or ecchymosis. NEUROLOGICAL: Awake and alert. No obvious cranial nerve deficits. Motor grossly within normal limits. Normal speech. PSYCHIATRIC: Appropriate mood and affect; insight and judgment normal. Data Data Last Documented VS Vital Signs Date Time Temp Pulse Resp B/P (MAP) Pulse Ox O2 Delivery O2 Flow Rate FiO2 01/04/17 22:08 98 18 96 Room Air 01/04/17 22:02 98.2 179/92 (121) [facility] Medical Decision Making Medical Screen Exam Complete: Yes Emergency Medical Condition: Yes Medical Record Reviewed: Yes Differential Diagnosis PICC line malfunction, infiltration, thrombosis Narrative Course The patient will be given a prescription for outpatient PICC line insertion and he will follow up tomorrow with interventional radiology. Discussed the instructions with him at great detail. He is stable for discharge. Diagnosis Primary Impression: Occluded PICC line Qualified Codes: T82.898A - Other specified complication of vascular prosthetic devices, implants and grafts, initial encounter Additional Instructions: As discussed, call centralized scheduling tomorrow in order to schedule having PICC line replacement with interventional radiology. Return for any emergent medical conditions. Med/Other Pt SpecificInfo: No Change to Meds Disposition: 01 DISCHARGE HOME Condition: Stable Billy aFlk Jan 04, 2017 22:46
== END 2017-01-04 23:05 | disposition home or self-care (01) ==
LOC: NEPE 22:00
DX: T82.898A Other specified complication of vascular prosthetic devices, implants and grafts, initial encounter (principal); M83.9 Adult osteomalacia, unspecified; I25.10 Atherosclerotic heart disease of native coronary artery without angina pectoris; I10 Essential (primary) hypertension
CPT/HCPCS: 99283

== ENCOUNTER 2017-01-08 10:58 | Emergency (ER) | payer MEDICARE, OTHER ==
[~2017-01-08] VITALS: Ht 180.3 cm; Wt 60.0 kg
[2017-01-08 11:01] VITALS: BP 213/114; PULSE 102; RESP 16; TEMP 98.5; O2SAT 98
--- NOTE | 2017-01-08 11:54 | PD ---
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 Patient reports easy minutes during cefepime 2 g every 8 hours for osteomyelitis. Patient states he last had a dose yesterday. Patient has his antibiotics with him, but is unable to use his PICC line secondary to coming out. Patient denies any fevers, nausea or vomiting, chest pain, shortness of breath, or other concerns. Patient states the EMS tried to maneuver back in without success. Denies anything making it worse. Patient reports he is supposed to be on IV antibiotics for another 30 days. Denies any fevers, chest pain, shortness of breath, nausea, vomiting, or other medical concerns. PFSH Past Medical History Arthritis: Yes Asthma: No Autoimmune Disease: No Blood Disorders: No Anxiety: Yes Depression: No Heart Rhythm Problems: No Cancer: Yes (PROSTATE) Cardiovascular Problems: Yes (CAD) High Cholesterol: No Chemotherapy: Yes (PROSTATE CA) Chest Pain: Yes Congestive Heart Failure: No COPD: No Cerebrovascular Accident: Yes (X3) Coronary Artery Disease: Yes Diabetes: No Diminished Hearing: No Endocrine: No Gastrointestinal Disorders: Yes GERD: No Genitourinary: No Headaches: No Hepatitis: Yes (HEP C) Hiatal Hernia: No Heparin Induced Thrombocytopen: No Hypertension: Yes Immune Disorder: Yes (HEP C) Kidney Stones: No Musculoskeletal: Yes Neurologic: Yes Psychiatric: Yes Reproductive: No Respiratory: Yes Immunizations Current: No Migraines: No Myocardial Infarction: Yes (2007) Radiation Therapy: Yes Renal Failure: No Seizures: No Sickle Cell Disease: No Sleep Apnea: Yes Thyroid Disease: No Ulcer: Yes Tetanus Vaccination: > 5 Years Influenza Vaccination: Yes Past Surgical History Abdominal Surgery: No AICD: No Appendectomy: No Arteriovenous Shunt: No Cardiac Surgery: No Cholecystectomy: No Ear Surgery: No Endocrine Surgery: No Eye Surgery: Yes Genitourinary Surgery: No Gynecologic Surgery: No Insulin Pump: No Joint Replacement: Yes (L SHOULDER) Neurologic Surgery: Yes Oral Surgery: Yes Pacemaker: No Thoracic Surgery: Yes (RIGHT UPPER ARM ARTERY SURGERY) Other Surgery: Yes (PLASTIC SURGERY TO HEAD AND FACE ,) Social History Alcohol Use: No Tobacco Use: Yes (1 ppd) Substance Use: No Allergies-Medications (Allergen,Severity, Reaction): Coded Allergies: simvastatin (Unverified Adverse Reaction, Severe, Joint Pain, 01/08/17) COULD NOT TOLERATE STATINS Reported Meds & Prescriptions Reported Meds & Active Scripts Active Epinephrine Inj 1 Mg/Ml (1 Ml) Inj 0.3 Mg SQ ONCE PRN Give with any signs of respiratory distress. Maxipime Inj (Cefepime HCl) 2 Gram Inj 2 Gm IV Q8H 35 Days Oxycodone (Oxycodone HCl) 5 Mg Tab 10 Mg PO Q4H PRN 30 Days Dilaudid (Hydromorphone HCl) 8 Mg Tab 8 Mg PO Q6H PRN 30 Days Review of Systems Except as stated in HPI: all other systems reviewed are Neg Physical Exam Narrative GENERAL: Well-developed, under nourished, in no acute distress, and non-ill appearing. SKIN: Focused skin assessment warm and dry. PICC line left upper extremity appears to be out 80% [address] the way. HEAD: Atraumatic. Normocephalic. EYES: Pupils equal and round. EOMI. No scleral icterus. No injection or drainage. ENT: No nasal bleeding or discharge. Mucous membranes pink and moist. NECK: Trachea midline. Supple. No nuclear rigidity. RESPIRATORY: No accessory muscle use. No respiratory distress. MUSCULOSKELETAL: No obvious deformities. No clubbing. No cyanosis. No edema. Full range of motion. NEUROLOGICAL: Awake and alert. No obvious cranial nerve deficits. Motor grossly within normal limits. Normal speech. PSYCHIATRIC: Appropriate mood and affect; insight and judgment normal. Data Data Last Documented VS Vital Signs Date Time Temp Pulse Resp B/P (MAP) Pulse Ox O2 Delivery O2 Flow Rate FiO2 01/08/17 13:45 01/08/17 11:21 100 17 98 01/08/17 11:01 98.5 Orders Orders Iv Access Insert/Monitor (01/08/17 11:46) Cefepime Inj (Maxipime Inj) (01/08/17 12:00) MDM Medical Decision Making Medical Screen Exam Complete: Yes Emergency Medical Condition: Yes Differential Diagnosis PICC line exchanged, PICC line malfunction, other Narrative Course Patient was seen and examined. IV established patient was given a dose of his cefepime here. Vascular access was consult as they were unable to place the PICC line. I spoke with special procedures who stated that vascular access team to do this. Again spoke with vascular access, who stated they would evaluate the patient. Vascular access called back stating that they could not do this and he can be scheduled as an outpatient. Dr. De Guzman then spoke to vascular access secondary to the patient and his antibiotics every 8 hours for his osteomyelitis and it being Wednesday with no primary care doctor. [place] as it was reported to Dr. De Guzman will come and place the PICC line. Patient got tired of waiting as he is going to get on the road and hit the work and signed out AGAINST MEDICAL ADVICE. Patient states he will stop at a hospital along the way to get a PICC line placed. The risks of leaving against medical advice without further evaluation treatment were discussed with the patient. These risks include cardiac dysfunction, cardiac dysrhythmia, possible heart attack, possible stroke or . The patient indicated understanding of these risks and appeared to have the capacity to make this decision. Patient in no obvious distress upon re-evaluation. Patient ambulated without difficulty out of ED at discharge AGAINST MEDICAL ADVICE. Diagnosis Primary Impression: Left against medical advice Disposition: 07 AGAINST MEDICAL ADVICE Condition: Stable Roe Gutierrez Jan 08, 2017 11:54
[2017-01-08] MEDS ORDERED: CEFEPIME INJ 2,000 MG in SODIUM CHLORIDE 0.9% INJ 100 ML IV ONE (12:00)
== END 2017-01-08 13:45 | disposition left against medical advice (07) ==
LOC: NEPC 10:58
DX: T82.897A Other specified complication of cardiac prosthetic devices, implants and grafts, initial encounter (principal); M86.10 Other acute osteomyelitis, unspecified site; F41.9 Anxiety disorder, unspecified; I25.10 Atherosclerotic heart disease of native coronary artery without angina pectoris; Z86.73 Personal history of transient ischemic attack (TIA), and cerebral infarction without residual deficits; Z85.46 Personal history of malignant neoplasm of prostate; I10 Essential (primary) hypertension; B19.20 Unspecified viral hepatitis C without hepatic coma; I25.2 Old myocardial infarction; F17.200 Nicotine dependence, unspecified, uncomplicated; Z79.899 Other long term (current) drug therapy; Y82.8 Other medical devices associated with adverse incidents
CPT/HCPCS: 96365; 99284; J0692

== ENCOUNTER 2017-07-01 18:14 | Inpatient (IN) | payer MEDICARE, OTHER ==
[~2017-07-01] VITALS: Ht 180.3 cm; Wt 67.9 kg
[~2017-07-01 18:14] MED LIST changes: -ATIV2INJ2 IV PUSH; -EPIN1INJ21 IV PUSH; -HYDR2INJ6 IV PUSH; -LEVA750T9 PO; -OXYC-395 PO; -SOLU250I IV PUSH
[2017-07-01 18:47] VITALS: BP 191/99; PULSE 90; RESP 16; TEMP 98.1; O2SAT 98
[2017-07-01] MEDS ORDERED: AMLO10 PO (19:12)
[2017-07-01] MEDS ORDERED: LISI10TA3 PO (19:12)
--- NOTE | 2017-07-01 19:12 | PD ---
HPI Chief Complaint: Cardiac Complaint Time Seen by Provider: 19:00 Travel History International Travel<30 days: No Contact w/Intl Traveler<30days: No Traveled to known affect area: No History of Present Illness HPI 62-year-old male with history of CAD, hypertension, cervical osteomyelitis last year, tobaccoism, here for evaluation of 2 separate complaints. For 1 the patient complains of a painful right-sided neck mass. He states he first noticed the mass about 1.5 months ago and since then it has been increasing in size. Today the past became painful, 6 out of 10, constant, worse with palpation. He is able to swallow and tolerate his secretions. Patient is also noted intermittent chest tightness throughout the day today. There are no modifying factors to this pain. Currently he is pain-free. No new paresthesias or motor deficits. No dyspnea. No fevers. He denies IVDU. PFSH Past Medical History Arthritis: Yes Asthma: No Autoimmune Disease: No Blood Disorders: No Anxiety: Yes Depression: No Heart Rhythm Problems: No Cancer: Yes (PROSTATE) Cardiovascular Problems: Yes (CAD) High Cholesterol: No Chemotherapy: Yes (PROSTATE CA) Chest Pain: Yes Congestive Heart Failure: No COPD: No Cerebrovascular Accident: Yes (X3) Coronary Artery Disease: Yes Diabetes: No Diminished Hearing: No Endocrine: No Gastrointestinal Disorders: Yes GERD: No Genitourinary: No Headaches: No Hepatitis: Yes (HEP C) Hiatal Hernia: No Heparin Induced Thrombocytopen: No Hypertension: Yes Immune Disorder: Yes (HEP C) Kidney Stones: No Musculoskeletal: Yes Neurologic: Yes Psychiatric: Yes Reproductive: No Respiratory: Yes Immunizations Current: No Migraines: No Myocardial Infarction: Yes (2007) Radiation Therapy: Yes Renal Failure: No Seizures: No Sickle Cell Disease: No Sleep Apnea: Yes Thyroid Disease: No Ulcer: Yes Past Surgical History Abdominal Surgery: No AICD: No Appendectomy: No Arteriovenous Shunt: No Cardiac Surgery: No Cholecystectomy: No Ear Surgery: No Endocrine Surgery: No Eye Surgery: Yes Genitourinary Surgery: No Gynecologic Surgery: No Insulin Pump: No Joint Replacement: Yes (L SHOULDER) Neurologic Surgery: Yes Oral Surgery: Yes Pacemaker: No Thoracic Surgery: Yes (RIGHT UPPER ARM ARTERY SURGERY) Other Surgery: Yes (PLASTIC SURGERY TO HEAD AND FACE ,) Social History Alcohol Use: No Tobacco Use: Yes (1 ppd) Substance Use: No Allergies-Medications (Allergen,Severity, Reaction): Coded Allergies: simvastatin (Unverified Adverse Reaction, Severe, Joint Pain, 01/19/17) COULD NOT TOLERATE STATINS Reported Meds & Prescriptions Reported Meds & Active Scripts Active Reported Norvasc (Amlodipine Besylate) 10 Mg Tab 10 Mg PO DAILY Lisinopril 10 Mg Tab 10 Mg PO DAILY Review of Systems Except as stated in HPI: all other systems reviewed are Neg Physical Exam Narrative GENERAL: Well-developed, well-nourished, comfortable, no apparent distress. SKIN: Focused skin assessment warm/dry. HEAD: Atraumatic. Normocephalic. EYES: Pupils equal and round. No scleral icterus. No injection or drainage. ENT: No nasal bleeding or discharge. Mucous membranes pink and moist. Poor dentition with upper dentures. No drooling or stridor. Normal phonation. Normal pharynx. NECK: Trachea midline. No JVD. Right lateral neck preauricular nodule about 3 cm x 3 cm, firm, fixed, slightly tender. CARDIOVASCULAR: Regular rate and rhythm. RESPIRATORY: No accessory muscle use. Clear to auscultation. Breath sounds equal bilaterally. GASTROINTESTINAL: Abdomen soft, non-tender, nondistended. Hepatic and splenic margins not palpable. MUSCULOSKELETAL: No obvious deformities. No clubbing. No cyanosis. No edema. NEUROLOGICAL: Awake and alert. No obvious cranial nerve deficits. Motor grossly within normal limits. Normal speech. PSYCHIATRIC: Appropriate mood and affect; insight and judgment normal. Data Data Last Documented VS Vital Signs Date Time Temp Pulse Resp B/P (MAP) Pulse Ox O2 Delivery O2 Flow Rate FiO2 07/01/17 18:47 98.1 90 16 191/99 (129) 98 Orders Orders Electrocardiogram (07/01/17 19:06) Ckmb (Isoenzyme) Profile (07/01/17 19:06) Complete Blood Count With Diff (07/01/17 19:06) Comprehensive Metabolic Panel (07/01/17 19:06) Magnesium (Mg) (07/01/17 19:06) Prothrombin Time / Inr (Pt) (07/01/17 19:06) Act Partial Throm Time (Ptt) (07/01/17 19:06) Troponin I (07/01/17 19:06) Chest, Single Ap (07/01/17 19:06) Ecg Monitoring (07/01/17 19:06) Iv Access Insert/Monitor (07/01/17 19:06) Oximetry (07/01/17 19:06) Aspirin Chew (Aspirin Chew) (07/01/17 19:15) Sodium Chloride 0.9% Flush (Ns Flush) (07/01/17 19:15) Ct Soft Tiss Neck W/O Iv Cont (07/01/17 ) CKMB (07/01/17 19:35) CKMB% (07/01/17 19:35) Sodium Chlor 0.9% 1000 Ml Inj (Ns 1000 M (07/01/17 20:29) Morphine Inj (Morphine Inj) (07/01/17 21:45) Labs Laboratory Tests Test 07/01/17 19:35 White Blood Count 7.6 TH/MM3 Red Blood Count 4.26 MIL/MM3 Hemoglobin 12.6 GM/DL Hematocrit 37.0 % Mean Corpuscular Volume 86.9 FL Mean Corpuscular Hemoglobin 29.5 PG Mean Corpuscular Hemoglobin Concent 33.9 % Red Cell Distribution Width 14.9 % Platelet Count 262 TH/MM3 Mean Platelet Volume 7.6 FL Neutrophils (%) (Auto) 68.2 % Lymphocytes (%) (Auto) 21.4 % Monocytes (%) (Auto) 7.8 % Eosinophils (%) (Auto) 1.7 % Basophils (%) (Auto) 0.9 % Neutrophils # (Auto) 5.2 TH/MM3 Lymphocytes # (Auto) 1.6 TH/MM3 Monocytes # (Auto) 0.6 TH/MM3 Eosinophils # (Auto) 0.1 TH/MM3 Basophils # (Auto) 0.1 TH/MM3 CBC Comment DIFF FINAL Differential Comment Prothrombin Time 10.6 SEC Prothromb Time International Ratio 1.0 RATIO Activated Partial Thromboplast Time 27.3 SEC Blood Urea Nitrogen 28 MG/DL Creatinine 2.88 MG/DL Random Glucose 69 MG/DL Total Protein 8.0 GM/DL Albumin 3.3 GM/DL Calcium Level 8.6 MG/DL Magnesium Level 1.9 MG/DL Alkaline Phosphatase 151 U/L Aspartate Amino Transf (AST/SGOT) 74 U/L Alanine Aminotransferase (ALT/SGPT) 93 U/L Total Bilirubin 0.3 MG/DL Sodium Level 139 MEQ/L Potassium Level 4.2 MEQ/L Chloride Level 109 MEQ/L Carbon Dioxide Level 19.5 MEQ/L Anion Gap 11 MEQ/L Estimat Glomerular Filtration Rate 22 ML/MIN Total Creatine Kinase 181 U/L Creatine Kinase MB 5.5 NG/ML Troponin I 0.06 NG/ML MDM Medical Decision Making Medical Screen Exam Complete: Yes Emergency Medical Condition: Yes Interpretation(s) EKG: Sinus, rate 83, leftward axis, RBBB, T-wave inversions in precordial and lateral leads which are new compared to May 2016, Q waves in septal and anterior leads. Differential Diagnosis Neck mass, ACS, pneumothorax, pericarditis, PE, pneumonia Narrative Course Initial vital signs show heart rate 90, blood pressure 191/99, pulse ox 98% on room air, oral temperature 98.1F. CBC: WBC 7.6, hemoglobin 12.6, hematocrit 37, platelets 262. CMP is remarkable for BUN 20, creatinine 1.8, GFR 22, AST 74, ALT 93. Troponin is 0.06. Chest x-ray shows no acute disease. CT soft tissue neck: 1. There is a least a 2.5 cm mass in the posterior right lingual region with probable metastatic adenopathy in the upper right cervical region measuring up to 2.9 cm in diameter. 2. Chronic right maxillary sinus disease with thinning or erosion of the anterior and posterior patiño of the right maxillary sinus and complete sinus opacification. 3. Extensive dental caries with small periapical abscesses in the mandible. Patient was made aware of all findings. He is complaining of pain mainly in his right neck. No chest pain while in the emergency department. Patient has an EKG with signs of ischemia with T-wave inversions in precordial and lateral leads as well as a troponin of 0.06. He also has acute on chronic renal insufficiency and a new neck mass. Because of this she will be admitted for further treatment and evaluation. Case discussed with hospitalist Dr. Brooks who will admit the patient to her service. Diagnosis Primary Impression: Chest pain Qualified Codes: R07.9 - Chest pain, unspecified Additional Impressions: Abnormal EKG Acute on chronic renal insufficiency Neck mass Admitting Information Admitting Physician Requests: Admit Sanju Beltrán MD Jul 01, 2017 19:12
[2017-07-01] MEDS ORDERED: SODIUM CHLORIDE 0.9% FLUSH 10 ML FLUSH IVF PRN (19:15)
[2017-07-01] MEDS ORDERED: ASPIRIN 81 MG CHEW TAB PO ONE (19:15)
[2017-07-01 19:50] LABS: AUTOMATED NEUTROPHIL # 5.2 TH/MM3 (1.8-7.7); BASOPHIL # 0.1 TH/MM3 (0-0.2); BASOPHIL % 0.9 % (0.0-2.0); EOSINOPHIL # 0.1 TH/MM3 (0-0.4); EOSINOPHIL % 1.7 % (0.0-4.0); HEMOGLOBIN 12.6 GM/DL (13.0-17.0); LYMPH % 21.4 % (9.0-44.0); LYMPHOCYTE # 1.6 TH/MM3 (1.0-4.8); MEAN CELL VOLUME 86.9 FL (80.0-100.0); MEAN CORPUSCULAR HEMOGLOBIN 29.5 PG (27.0-34.0); MEAN CORPUSCULAR HGB CONC 33.9 % (32.0-36.0); MEAN PLATELET VOLUME 7.6 FL (7.0-11.0); MONO % 7.8 % (0.0-8.0); MONOCYTE # 0.6 TH/MM3 (0-0.9); NEUT % 68.2 % (16.0-70.0); PLATELET COUNT 262 TH/MM3 (150-450); RED BLOOD COUNT 4.26 MIL/MM3 (4.50-5.90); RED CELL DISTRIBUTION WIDTH 14.9 % (11.6-17.2); WHITE BLOOD COUNT 7.6 TH/MM3 (4.0-11.0)
[2017-07-01 19:54] LABS: PROTHROMBIN TIME - PATIENT 10.6 SEC (9.8-11.6)
[2017-07-01 20:00] VITALS: BP 169/90; PULSE 76; RESP 21; O2SAT 98
--- NOTE | 2017-07-01 20:06 | RADRPT ---
EXAM DATE/TIME: 07/01/2017 19:49 [facility] COMPARISON: CHEST SINGLE AP, June 16, 2016, 17:39. INDICATIONS : Chest pain MEDICAL HISTORY : Hypertension. Arthritis SURGICAL HISTORY : Discectomy, cervical. ENCOUNTER: Initial ACUITY: 1 day PAIN SCORE: 3/10 LOCATION: chest FINDINGS: A single view of the chest demonstrates the lungs to be symmetrically aerated without evidence of mas s, infiltrate or effusion. The cardiomediastinal contours are unremarkable. Osseous structures are intact. CONCLUSION: No acute disease. No significant change has occurred. Neel Lal MD on July 01, 2017 at 20:03 Board Certified Radiologist. This report was verified electronically.
[2017-07-01 20:15] LABS: ALBUMIN 3.3 GM/DL (3.4-5.0); ALT (GPT) 93 U/L (12-78); AST (GOT) 74 U/L (15-37); BICARBONATE 19.5 MEQ/L (21.0-32.0); BLOOD UREA NITROGEN 28 MG/DL (7-18); CALCIUM 8.6 MG/DL (8.5-10.1); CHLORIDE 109 MEQ/L (98-107); CREATININE 2.88 MG/DL (0.60-1.30); GLOMERULAR FILTRATION RATE 22 ML/MIN (>89); GLUCOSE,RANDOM 69 MG/DL (74-106); MAGNESIUM 1.9 MG/DL (1.5-2.5); SODIUM (NA) 139 MEQ/L (136-145)
[2017-07-01 20:19] LABS: ALKALINE PHOSPHATASE 151 U/L (45-117); TOTAL BILIRUBIN ADULT 0.3 MG/DL (0.2-1.0); TROPONIN I 0.06 NG/ML (0.02-0.05)
[2017-07-01] MEDS: SODIUM CHLOR 0.9% 1000 ML INJ 1,000 ML IV SCH ×3 (21:05→23:42)
--- NOTE | 2017-07-01 21:39 | RADRPT ---
EXAM DATE/TIME: 07/01/2017 20:52 [facility] COMPARISON: No previous studies available for comparison. INDICATIONS : Swelling to right side of neck. RADIATION DOSE: 16.80 CTDIvol (mGy) MEDICAL HISTORY : Carcinoma, prostate. Hepatitis C. Hypertension. SURGICAL HISTORY : None. ENCOUNTER: Initial ACUITY: 1 month PAIN SCORE: 3/10 LOCATION: Right neck TECHNIQUE: Volumetric scanning of the neck was performed. Using automated exposure control and adjustment of th e mA and/or kV according to patient size, radiation dose was kept as low as reasonably achievable to obtain optimal diagnostic quality images. DICOM format image data is available electronically for re view and comparison. FINDINGS: There is an irregular mass in the posterior lingual region on the right side extending into the perera cula. Contrast not administered and exact dimensions are difficult to ascertain but lesion measures a t least 2.5 cm in diameter. There is a soft tissue mass in the upper right cervical region measuring up to 2.9 cm in diameter, pr obably metastatic lymph node. Other smaller surrounding lymph nodes are present.. There are carotid a rtery calcifications bilaterally. There is chronic right maxillary sinus disease with some erosion of the anterior and posterior patiño. Extensive dental caries and probable small periapical abscesses bilaterally in the mandible. CONCLUSION: 1. There is a least a 2.5 cm mass in the posterior right lingual region with probable metastatic la opathy in the upper right cervical region measuring up to 2.9 cm in diameter. 2. Chronic right maxillary sinus disease with thinning or erosion of the anterior and posterior patiño of the right maxillary sinus and complete sinus opacification. 3. Extensive dental caries with small periapical abscesses in the mandible. Neel Lal MD on July 01, 2017 at 21:30 Board Certified Radiologist. This report was verified electronically.
[2017-07-01] MEDS ORDERED: MORPHINE SULFATE 2 MG/ML SYRINGE IV PUSH ONE ×2 (21:45→23:00)
[2017-07-01] MEDS ORDERED: ACETAMINOPHEN/HYDROcodone 325 MG/7.5 MG TAB PO PRN (22:30)
[2017-07-01] MEDS ORDERED: ACETAMINOPHEN 500 MG CPLT PO PRN (22:30)
[2017-07-01] MEDS ORDERED: NITROGLYCERIN 0.4 MG SL 25 TABS/BTL SL PRN (22:30)
[2017-07-01] MEDS ORDERED: SODIUM CHLORIDE 0.9% FLUSH 10 ML FLUSH IV FLUSH PRN (22:30)
[2017-07-01 23:00] VITALS: BP 169/94; PULSE 77; RESP 20; O2SAT 97
[2017-07-01] MEDS: HEPARIN SODIUM - SQ 10,000 UNITS/ML VIAL SQ SCH (23:27)
[2017-07-02] VITALS (17 sets, daily range): BP systolic 126–191; BP diastolic 57–121; PULSE 60–88; RESP 16–24; TEMP 97.4–98.6; O2SAT 96–100
[2017-07-02] MEDS ORDERED: hydrALAZINE HCL 20 MG/ML VIAL IV PUSH ONE ×2 (00:15→04:15)
[2017-07-02 01:23] LABS: ALBUMIN 2.7 GM/DL (3.4-5.0); ALT (GPT) 81 U/L (12-78); AST (GOT) 64 U/L (15-37); BICARBONATE 24.1 MEQ/L (21.0-32.0); BLOOD UREA NITROGEN 30 MG/DL (7-18); CALCIUM 7.9 MG/DL (8.5-10.1); CHLORIDE 113 MEQ/L (98-107); CREATININE 2.65 MG/DL (0.60-1.30); GLOMERULAR FILTRATION RATE 25 ML/MIN (>89); GLUCOSE,RANDOM 86 MG/DL (74-106); SODIUM (NA) 142 MEQ/L (136-145)
[2017-07-02 01:26] LABS: ALKALINE PHOSPHATASE 133 U/L (45-117); TOTAL BILIRUBIN ADULT 0.3 MG/DL (0.2-1.0); TROPONIN I 0.07 NG/ML (0.02-0.05)
[2017-07-02] MEDS: cloNIDine HCL 0.1 MG TAB PO PRN ×2 (01:54→20:22)
[2017-07-02] MEDS: MORPHINE SULFATE 2 MG/ML SYRINGE IV PUSH PRN ×5 (02:36→23:18)
[2017-07-02 03:15] LABS: AUTOMATED NEUTROPHIL # 4.1 TH/MM3 (1.8-7.7); BASOPHIL # 0.1 TH/MM3 (0-0.2); BASOPHIL % 0.9 % (0.0-2.0); EOSINOPHIL # 0.3 TH/MM3 (0-0.4); HEMOGLOBIN 12.2 GM/DL (13.0-17.0); LYMPH % 27.8 % (9.0-44.0); LYMPHOCYTE # 1.9 TH/MM3 (1.0-4.8); MEAN CELL VOLUME 86.5 FL (80.0-100.0); MEAN CORPUSCULAR HEMOGLOBIN 29.3 PG (27.0-34.0); MEAN CORPUSCULAR HGB CONC 33.9 % (32.0-36.0); MEAN PLATELET VOLUME 7.7 FL (7.0-11.0); MONO % 9.1 % (0.0-8.0); MONOCYTE # 0.6 TH/MM3 (0-0.9); NEUT % 58.2 % (16.0-70.0); PLATELET COUNT 266 TH/MM3 (150-450); RED BLOOD COUNT 4.17 MIL/MM3 (4.50-5.90); RED CELL DISTRIBUTION WIDTH 14.9 % (11.6-17.2)
--- NOTE | 2017-07-02 05:34 | EKG ---
Date Performed: 07/01/2017 Time Performed: 19:07:35 PTAGE: 62 years EKG: Sinus rhythm LEFT ATRIAL ENLARGEMENT LEFT AXIS DEVIATION RIGHT BUNDLE BRANCH BLOCK ANTEROSEPTAL MYOCARDIAL INFARC TION T-WAVE ABNORMALITY, CONSIDER ANTEROLATERAL ISCHEMIA ABNORMAL ECG PREVIOUS TRACING : 06/16/2016 14.14 Compared to previous tracing, anterolateral T wave inversio n is now present, heart rate has increased. DOCTOR: Kimani Brock Interpretating Date/Time 07/02/2017 05:34:17
[2017-07-02] MEDS: HEPARIN SODIUM - SQ 10,000 UNITS/ML VIAL SQ SCH ×2 (06:02→14:41)
[2017-07-02] MEDS: SODIUM CHLOR 0.9% 1000 ML INJ 1,000 ML IV SCH ×2 (08:00→22:18)
[2017-07-02] MEDS: SODIUM CHLORIDE 0.9% FLUSH 10 ML FLUSH IV FLUSH SCH ×2 (08:57→20:18)
[2017-07-02 09:25] LABS: TROPONIN I 0.08 NG/ML (0.02-0.05)
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
[2017-07-02] MEDS ORDERED: NITROGLYCERIN 0.4 MG SL 25 TABS/BTL SL PRN (18:15)
[2017-07-02] MEDS ORDERED: HEPARIN-D5W 25,000 U/250 ML 250 ML IV PRN (18:15)
[2017-07-02] MEDS ORDERED: HEPARIN 25,000 UNITS-D5W 250 ML - PREMIX IV PRN (18:45)
[2017-07-02 18:49] LABS: HEMATOCRIT 39.6 % (39.0-51.0); HEMOGLOBIN 13.3 GM/DL (13.0-17.0); MEAN CELL VOLUME 87.3 FL (80.0-100.0); MEAN CORPUSCULAR HEMOGLOBIN 29.2 PG (27.0-34.0); MEAN CORPUSCULAR HGB CONC 33.5 % (32.0-36.0); MEAN PLATELET VOLUME 7.8 FL (7.0-11.0); PLATELET COUNT 252 TH/MM3 (150-450); RED BLOOD COUNT 4.54 MIL/MM3 (4.50-5.90); WHITE BLOOD COUNT 6.6 TH/MM3 (4.0-11.0)
[2017-07-02 19:02] LABS: PROTHROMBIN TIME - PATIENT 10.5 SEC (9.8-11.6)
[2017-07-02] MEDS: METOPROLOL TARTRATE 25 MG TAB PO SCH (20:17)
[2017-07-02] MEDS: ATORVASTATIN 10 MG TAB PO SCH (20:17)
[2017-07-02 20:31] LABS: CHOLESTEROL/ HDL RATIO 3.07 RATIO; HDL CHOLESTEROL 41.6 MG/DL (40.0-60.0)
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
[2017-07-02] MEDS: ENALAPRILAT 1.25 MG/ML VIAL IV PUSH PRN (22:22)
--- NOTE | 2017-07-02 23:55 | RADRPT ---
EXAM DATE/TIME: 07/02/2017 23:23 [facility] COMPARISON: CT SOFT TISSUE NECK W/O CONTRAST, July 01, 2017, 20:52. INDICATIONS : Mass. Evaluate for metastatic disease. RADIATION DOSE: 6.15 CTDIvol (mGy) MEDICAL HISTORY : Carcinoma, not otherwise specified. SURGICAL HISTORY : None. ENCOUNTER: Initial ACUITY: 1 day PAIN SCALE: 0/10 LOCATION: chest TECHNIQUE: Volumetric scanning of the chest was performed. Using automated exposure control and adjustment of t he mA and/or kV according to patient size, radiation dose was kept as low as reasonably achievable to obtain optimal diagnostic quality images. DICOM format image data is available electronically for r eview and comparison. Follow-up recommendations for detected pulmonary nodules are based at a minimum on nodule size and pa tient risk factors according to Fleischner Society Guidelines. FINDINGS: LUNGS: Linear opacity at the lung apices indicating scarring. Scattered mild linear and groundglass opacitie s in the midlungs indicating scarring or atelectasis. Dependent atelectasis at the lung bases. No nod ules or masses identified.. PLEURAE: Trace bilateral pleural effusions. MEDIASTINUM: Aortic and coronary artery calcification indicating atherosclerotic disease. Precarinal lymph node me asuring 2.0 x 1.2 cm. Pretracheal lymph node measuring 1.8 x 1.6 cm. AXILLAE: Within normal limits. No lymphadenopathy. MUSCULOSKELETAL: Within normal limits for patient age. MISCELLANEOUS: The visualized upper abdominal organs demonstrate no acute abnormality. CONCLUSION: 1. Mild patchy atelectasis and scarring in the lungs. No pulmonary nodules or masses identified. 2. Borderline enlarged pretracheal and precarinal lymph nodes. 3. Small bilateral pleural effusions. Greg Muro MD on July 02, 2017 at 23:47 Board Certified Radiologist. This report was verified electronically.
[2017-07-03] VITALS (22 sets, daily range): BP systolic 142–174; BP diastolic 88–101; PULSE 51–122; RESP 16–20; TEMP 97.4–98.7; O2SAT 65–97
[2017-07-03] MEDS: MORPHINE SULFATE 2 MG/ML SYRINGE IV PUSH PRN ×3 (03:11→09:19)
[2017-07-03] MEDS: cloNIDine HCL 0.1 MG TAB PO PRN ×2 (04:37→17:09)
--- NOTE | 2017-07-03 08:37 | PD.CONS ---
HPI Consult Requested By Primary Care Physician No Primary Care Physician History of Present Illness 62-year-old male with a past medical history of CAD, HTN, hep C, CKD who presented for neck pain. He states that he has known cancer in his neck and came for this. It also been noted that he has been having chest pain recently, but he is not concerned about this, states it is related to stress. 2 days ago he had a few minutes of chest discomfort. He states the last time he has had discomfort like this was about 10 years ago and reports that he had a heart attack at that time that was related to stress. His troponins are minimally elevated at 0.08, likely secondary to acute on chronic renal insufficiency with creatinine 2.65. However, his EKG does seem to show some anterolateral T-wave inversions that are new from previous. The patient has been seen by oncology and ENT here and plan is for biopsy of neck mass early next week. (Man Thomas) Review of Systems Negative except as stated in the HPI (Man Thomas) Past Family Social History Allergies: Coded Allergies: simvastatin (Unverified Adverse Reaction, Severe, Joint Pain, 01/19/17) COULD NOT TOLERATE STATINS Past Medical History History of OR Hypertension Hepatitis C Chronic kidney disease stage III/IV Past Surgical History Multiple left shoulder surgery Neck surgery due to vertebral osteomyelitis Right facial surgery due to physical trauma Reported Medications Reported Meds & Active Scripts Active Reported Norvasc (Amlodipine Besylate) 10 Mg Tab 10 Mg PO DAILY Lisinopril 10 Mg Tab 10 Mg PO DAILY Active Ordered Medications Current Medications Medications (Trade) Dose Ordered Sig/James Route Start Time Stop Time Status Last Admin Sodium Chloride 1,000 ml @ 100 mls/hr Q10H IV 07/01/17 23:00 07/02/17 22:18 (NS Flush) 2 ml BID IV FLUSH 07/02/17 09:00 07/02/17 20:18 (NS Flush) 2 ml UNSCH PRN IV FLUSH 07/01/17 22:30 (Nitrostat Sl) 0.4 mg Q5M PRN SL 07/01/17 22:30 (Tylenol) 500 mg Q4H PRN PO 07/01/17 22:30 (Lucas 7.5-325 Mg) 1 tab Q4H PRN PO 07/01/17 22:30 07/02/17 12:35 (Morphine Inj) 2 mg Q3H PRN IV PUSH 07/01/17 23:00 07/03/17 06:00 (Norvasc) 10 mg DAILY PO 07/02/17 09:00 07/02/17 08:57 (Catapres) 0.1 mg Q6H PRN PO 07/02/17 00:15 07/03/17 04:37 (Ecotrin Ec) 325 mg DAILY PO 07/03/17 09:00 (Nitrostat Sl) 0.4 mg Q5M PRN SL 07/02/17 18:15 (Lopressor) 12.5 mg BID PO 07/02/17 21:00 07/02/17 20:17 (Lipitor) 10 mg HS PO 07/02/17 21:00 07/02/17 20:17 Heparin Sodium/ Dextrose 250 ml @ 8 mls/hr TITRATE PRN IV 07/02/17 18:45 07/02/17 20:37 (Vasotec Inj) 1.25 mg Q6H PRN IV PUSH 07/02/17 19:15 07/02/17 22:22 (Prinivil) 10 mg DAILY PO 07/03/17 09:00 Family History Grandmother with heart disease Social History Current tobacco use denies alcohol or illicit drug abuse (Man Thomas) Physical Exam Vital Signs Vital Signs Date Time Temp Pulse Resp B/P (MAP) Pulse Ox O2 Delivery O2 Flow Rate FiO2 07/03/17 08:03 98.2 122 18 157/95 (115) 97 07/03/17 06:00 54 07/03/17 05:00 54 07/03/17 04:32 97.7 61 18 154/98 (116) 97 07/03/17 04:00 51 07/03/17 03:00 56 07/03/17 02:00 56 07/03/17 01:00 56 07/03/17 00:02 55 07/03/17 00:00 97.7 57 20 142/88 (106) 97 07/02/17 23:18 152/89 (110) 07/02/17 23:00 60 07/02/17 22:12 66 18 163/97 (119) 96 07/02/17 22:00 68 07/02/17 21:00 88 07/02/17 20:15 98.0 74 18 187/116 (139) 100 07/02/17 20:09 66 07/02/17 16:00 98.6 70 18 150/80 (103) 100 07/02/17 13:35 18 07/02/17 11:38 97.4 71 19 156/86 (109) 96 Physical Exam GENERAL: Well-developed well-nourished. In no acute distress. NECK: No carotid bruits. No JVD. CARDIOVASCULAR: Regular rate and rhythm. No murmur appreciated. RESPIRATORY: No accessory muscle use. Clear to auscultation. Breath sounds equal bilaterally. MUSCULOSKELETAL: No clubbing or cyanosis. No edema. NEUROLOGICAL: Awake and alert. Normal speech. Laboratory Laboratory Tests Test 07/02/17 18:31 07/03/17 02:21 White Blood Count 6.6 Red Blood Count 4.54 Hemoglobin 13.3 Hematocrit 39.6 Mean Corpuscular Volume 87.3 Mean Corpuscular Hemoglobin 29.2 Mean Corpuscular Hemoglobin Concent 33.5 Red Cell Distribution Width 15.0 Platelet Count 252 Mean Platelet Volume 7.8 Prothrombin Time 10.5 Prothromb Time International Ratio 1.0 Activated Partial Thromboplast Time 25.8 29.9 (Man Thomas) Result Diagram: 07/02/17 1831 07/02/17 0030 Imaging Last Impressions Chest CT 07/02/17 0000 Signed Impressions: Service Date/Time: Sunday, July 02, 2017 23:23 - CONCLUSION: 1. Mild patchy atelectasis and scarring in the lungs. No pulmonary nodules or masses identified. 2. Borderline enlarged pretracheal and precarinal lymph nodes. 3. Small bilateral pleural effusions. Greg Muro MD Chest X-Ray 07/01/17 1906 Signed Impressions: Service Date/Time: June 19:49 - CONCLUSION: No acute disease. No significant change has occurred. Neel Lal MD Neck CT 07/01/17 0000 Signed Impressions: Service Date/Time: June 20:52 - CONCLUSION: 1. There is a least a 2.5 cm mass in the posterior right lingual region with probable metastatic adenopathy in the upper right cervical region measuring up to 2.9 cm in diameter. 2. Chronic right maxillary sinus disease with thinning or erosion of the anterior and posterior patiño of the right maxillary sinus and complete sinus opacification. 3. Extensive dental caries with small periapical abscesses in the mandible. Neel Lal MD (Man Thomas) Assessment and Plan Assessment and Plan 62-year-old male with a past medical history of CAD, HTN, hep C, CKD who presented for neck pain. He states that he has known cancer in his neck and came for this. It also been noted that he has been having chest pain recently, but he is not concerned about this, states it is related to stress. 2 days ago he had a few minutes of chest discomfort. He states the last time he has had discomfort like this was about 10 years ago and reports that he had a heart attack at that time that was related to stress. The patient has been seen by oncology and ENT here and plan is for biopsy of neck mass early next week. Chest pain: Minimal troponin elevation is likely secondary to renal disease, however there do appear to be nonspecific EKG changes. Regardless, with advanced renal disease, the patient is a poor interventional candidate currently. Could consider ischemic evaluation if renal function were to improve , however for now will medically manage, add Imdur and titrate metoprolol as heart rate allows. Aspirin and statin. Discussed Condition With Patient, Dr. Murillo (Man Thomas) Assessment and Plan given SELIN on CKD, will proceed with medical mgt approach. BB ASA nitrate if Cr improves, and symptoms worsen, could consider ischemic workup clear from cardio perspective for biopsy will sign off call with further questions (Angel Murillo MD) Man Thomas Jul 03, 2017 08:37 Angel Murillo MD Jul 03, 2017 10:16
[2017-07-03] MEDS: ASPIRIN EC 325 MG TABEC PO SCH (09:00)
[2017-07-03] MEDS: ISOSORBIDE MONONITRATE 30 MG CR TAB (IMDUR) PO SCH (09:10)
[2017-07-03] MEDS: LISINOPRIL 10 MG TAB PO SCH (09:11)
[2017-07-03] MEDS: METOPROLOL TARTRATE 25 MG TAB PO SCH ×2 (09:11→20:02)
[2017-07-03] MEDS: SODIUM CHLORIDE 0.9% FLUSH 10 ML FLUSH IV FLUSH SCH ×2 (09:12→20:03)
[2017-07-03] MEDS: SODIUM CHLOR 0.9% 1000 ML INJ 1,000 ML IV SCH ×2 (11:00→15:00)
--- NOTE | 2017-07-03 11:11 | HHI.PR ---
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 Patient presented to the hospital complaining of almost few days of chest pain comes and goes no diaphoresis in the center of the chest no cough no fever or chills. No exacerbating or alleviating factor, patient also have right sided neck mass under his jaw that he noticed a few weeks ago it is about 2 cm rubbery, patient is concerned about having lymphoma or infection he denied drug abuse. Patient mentioned he has breast prostate cancer 10 years ago which has been treated with surgery and in remission, patient had physical injury that caused him to lose the right side and he has a metal reconstruction facial surgery in the past, history of hep C, COPD, history of PTSD 4-7 PATIENT SEEN BY ENT AND ONCOLOGY TO HAVE BIOPSY OF RIGHT NECK TOMORROW NPO AFTERMIDNIGHT DW RN AND PT AND CASE MANAGEMENT PAIN CONTROL Objective Vitals Vital Signs Date Time Temp Pulse Resp B/P (MAP) Pulse Ox O2 Delivery O2 Flow Rate FiO2 07/03/17 09:22 65 21 07/03/17 08:03 98.2 122 18 157/95 (115) 97 07/03/17 06:00 54 07/03/17 05:00 54 07/03/17 04:32 97.7 61 18 154/98 (116) 97 07/03/17 04:00 51 07/03/17 03:00 56 07/03/17 02:00 56 07/03/17 01:00 56 07/03/17 00:02 55 07/03/17 00:00 97.7 57 20 142/88 (106) 97 07/02/17 23:18 152/89 (110) 07/02/17 23:00 60 07/02/17 22:12 66 18 163/97 (119) 96 07/02/17 22:00 68 07/02/17 21:00 88 07/02/17 20:15 98.0 74 18 187/116 (139) 100 07/02/17 20:09 66 07/02/17 16:00 98.6 70 18 150/80 (103) 100 07/02/17 13:35 18 07/02/17 11:38 97.4 71 19 156/86 (109) 96 I/O 07/02/17 07/02/17 07/02/17 07/03/17 07/03/17 07/03/17 07:00 15:00 23:00 07:00 15:00 23:00 Intake Total 600 ml 240 ml Output Total 1 ml 120 ml Balance 599 ml 120 ml Intake Oral 600 ml 240 ml Output Urine Total 120 ml Stool Total 1 ml # Voids 4 4 Result Diagram: 07/02/17 1831 07/02/17 0030 Other Results Laboratory Tests Test 07/01/17 19:35 07/02/17 00:30 07/02/17 02:54 07/02/17 07:44 White Blood Count 7.6 TH/MM3 7.0 TH/MM3 Red Blood Count 4.26 MIL/MM3 4.17 MIL/MM3 Hemoglobin 12.6 GM/DL 12.2 GM/DL Hematocrit 37.0 % 36.0 % Mean Corpuscular Volume 86.9 FL 86.5 FL Mean Corpuscular Hemoglobin 29.5 PG 29.3 PG Mean Corpuscular Hemoglobin Concent 33.9 % 33.9 % Red Cell Distribution Width 14.9 % 14.9 % Platelet Count 262 TH/MM3 266 TH/MM3 Mean Platelet Volume 7.6 FL 7.7 FL Neutrophils (%) (Auto) 68.2 % 58.2 % Lymphocytes (%) (Auto) 21.4 % 27.8 % Monocytes (%) (Auto) 7.8 % 9.1 % Eosinophils (%) (Auto) 1.7 % 4.0 % Basophils (%) (Auto) 0.9 % 0.9 % Neutrophils # (Auto) 5.2 TH/MM3 4.1 TH/MM3 Lymphocytes # (Auto) 1.6 TH/MM3 1.9 TH/MM3 Monocytes # (Auto) 0.6 TH/MM3 0.6 TH/MM3 Eosinophils # (Auto) 0.1 TH/MM3 0.3 TH/MM3 Basophils # (Auto) 0.1 TH/MM3 0.1 TH/MM3 CBC Comment DIFF FINAL DIFF FINAL Differential Comment Prothrombin Time 10.6 SEC Prothromb Time International Ratio 1.0 RATIO Activated Partial Thromboplast Time 27.3 SEC Blood Urea Nitrogen 28 MG/DL 30 MG/DL Creatinine 2.88 MG/DL 2.65 MG/DL Random Glucose 69 MG/DL 86 MG/DL Total Protein 8.0 GM/DL 7.0 GM/DL Albumin 3.3 GM/DL 2.7 GM/DL Calcium Level 8.6 MG/DL 7.9 MG/DL Magnesium Level 1.9 MG/DL Alkaline Phosphatase 151 U/L 133 U/L Aspartate Amino Transf (AST/SGOT) 74 U/L 64 U/L Alanine Aminotransferase (ALT/SGPT) 93 U/L 81 U/L Total Bilirubin 0.3 MG/DL 0.3 MG/DL Sodium Level 139 MEQ/L 142 MEQ/L Potassium Level 4.2 MEQ/L 4.0 MEQ/L Chloride Level 109 MEQ/L 113 MEQ/L Carbon Dioxide Level 19.5 MEQ/L 24.1 MEQ/L Anion Gap 11 MEQ/L 5 MEQ/L Estimat Glomerular Filtration Rate 22 ML/MIN 25 ML/MIN Total Creatine Kinase 181 U/L 140 U/L 111 U/L Creatine Kinase MB 5.5 NG/ML Troponin I 0.06 NG/ML 0.07 NG/ML 0.08 NG/ML Triglycerides Level 69 MG/DL Cholesterol Level 128 MG/DL LDL Cholesterol 73 MG/DL HDL Cholesterol 41.6 MG/DL Cholesterol/HDL Ratio 3.07 RATIO Test 07/02/17 18:31 07/03/17 02:21 07/03/17 09:15 White Blood Count 6.6 TH/MM3 Red Blood Count 4.54 MIL/MM3 Hemoglobin 13.3 GM/DL Hematocrit 39.6 % Mean Corpuscular Volume 87.3 FL Mean Corpuscular Hemoglobin 29.2 PG Mean Corpuscular Hemoglobin Concent 33.5 % Red Cell Distribution Width 15.0 % Platelet Count 252 TH/MM3 Mean Platelet Volume 7.8 FL Prothrombin Time 10.5 SEC Prothromb Time International Ratio 1.0 RATIO Activated Partial Thromboplast Time 25.8 SEC 29.9 SEC 32.5 SEC Imaging Last Impressions Chest CT 07/02/17 0000 Signed Impressions: Service Date/Time: Sunday, July 02, 2017 23:23 - CONCLUSION: 1. Mild patchy atelectasis and scarring in the lungs. No pulmonary nodules or masses identified. 2. Borderline enlarged pretracheal and precarinal lymph nodes. 3. Small bilateral pleural effusions. Greg Muro MD Chest X-Ray 07/01/17 1906 Signed Impressions: Service Date/Time: June 19:49 - CONCLUSION: No acute disease. No significant change has occurred. Neel Lal MD Neck CT 07/01/17 0000 Signed Impressions: Service Date/Time: June 20:52 - CONCLUSION: 1. There is a least a 2.5 cm mass in the posterior right lingual region with probable metastatic adenopathy in the upper right cervical region measuring up to 2.9 cm in diameter. 2. Chronic right maxillary sinus disease with thinning or erosion of the anterior and posterior patiño of the right maxillary sinus and complete sinus opacification. 3. Extensive dental caries with small periapical abscesses in the mandible. Neel Lal MD Objective Remarks GENERAL: Awake alert and oriented 3 talkative and cooperative SKIN: Warm and dry. HEAD: Atraumatic. Normocephalic. EYES: Pupils equal and round. No scleral icterus. No injection or drainage. Extraocular muscles intact ENT: No nasal bleeding or discharge. Mucous membranes pink and moist. Tongue is midline NECK: Trachea midline. No JVD. Supple right-sided lymphadenopathy CARDIOVASCULAR: Regular rate and rhythm. S1-S2 no S3-S4 RESPIRATORY: No accessory muscle use. Clear to auscultation. Breath sounds equal bilaterally. GASTROINTESTINAL: Abdomen soft, non-tender, nondistended. Hepatic and splenic margins not palpable. MUSCULOSKELETAL: Extremities without clubbing, cyanosis, or edema. No obvious deformities. NEUROLOGICAL: Awake and alert. No obvious cranial nerve deficits. Motor grossly within normal limits. Five out of 5 muscle strength in the arms and legs. Normal speech. PSYCHIATRIC: Appropriate mood and affect; insight and judgment normal. Medications and IVs Laboratory Tests Test 07/01/17 19:35 07/02/17 00:30 07/02/17 02:54 07/02/17 07:44 Red Blood Count 4.26 MIL/MM3 (4.50-5.90) 4.17 MIL/MM3 (4.50-5.90) Hemoglobin 12.6 GM/DL (13.0-17.0) 12.2 GM/DL (13.0-17.0) Hematocrit 37.0 % (39.0-51.0) 36.0 % (39.0-51.0) Blood Urea Nitrogen 28 MG/DL (7-18) 30 MG/DL (7-18) Creatinine 2.88 MG/DL (0.60-1.30) 2.65 MG/DL (0.60-1.30) Random Glucose 69 MG/DL (74-106) Albumin 3.3 GM/DL (3.4-5.0) 2.7 GM/DL (3.4-5.0) Alkaline Phosphatase 151 U/L (45-117) 133 U/L (45-117) Aspartate Amino Transf (AST/SGOT) 74 U/L (15-37) 64 U/L (15-37) Alanine Aminotransferase (ALT/SGPT) 93 U/L (12-78) 81 U/L (12-78) Chloride Level 109 MEQ/L (98-107) 113 MEQ/L (98-107) Carbon Dioxide Level 19.5 MEQ/L (21.0-32.0) Estimat Glomerular Filtration Rate 22 ML/MIN (>89) 25 ML/MIN (>89) Creatine Kinase MB 5.5 NG/ML (0.5-3.6) Troponin I 0.06 NG/ML (0.02-0.05) 0.07 NG/ML (0.02-0.05) 0.08 NG/ML (0.02-0.05) Calcium Level 7.9 MG/DL (8.5-10.1) Monocytes (%) (Auto) 9.1 % (0.0-8.0) Test 07/02/17 18:31 07/03/17 02:21 07/03/17 09:15 Activated Partial Thromboplast Time 32.5 SEC (24.3-30.1) A/P Assessment and Plan 62 years old male veterans with history of prostate cancer presented with chest pain and right neck mass Chest pain atypical rule out ACS 2.5 cm adenopathy submandibular showed on CT of the neck Elevated troponin Uncontrolled hypertension History of coronary artery disease patient had stress test 10 years ago which was negative Chronic kidney disease with creatinine baseline around 2 History of prostate cancer in remission 10 years ago History of PTSD History of hep C DVT prophylaxis will be on heparin drip Plan: Admit to inpatient with telemetry 3 sets of cardiac enzymes [id number] Morphine, sublingual nitroglycerin, Start heparin drip, consult cardiology, EKG reviewed personally by me showing sinus rhythm with left atrial hypertrophy, which can explain the extra heart sounds revealed on exam, RBBB with possible anteroseptal ischemia Consult oncology for neck lymph node, discussed with Dr. Pena and he showed me on the CT scan possible basal lung mass which can be contributed, recommended ENT consult Continue amlodipine and lisinopril from med rec, creatinine seems to be around his baseline so we will continue DILMA inhibitor, Vasotec as needed Discharge Planning Pending ENT and oncology clearance Corey Mann DO Jul 03, 2017 11:11
[2017-07-03] MEDS ORDERED: MORPHINE SULFATE 2 MG/ML SYRINGE IV PUSH PRN (11:15)
[2017-07-03] MEDS ORDERED: oxyCODONE/ACETAMINOPHEN 5 MG/325 MG TAB PO PRN (11:15)
[2017-07-03] MEDS ORDERED: ACETAMINOPHEN 325 MG TAB PO PRN ×2 (11:15)
[2017-07-03] MEDS ORDERED: ONDANSETRON HCL 4 MG/2 ML VIAL IVP PRN (11:15)
[2017-07-03] MEDS ORDERED: MAGNESIUM HYDROXIDE SUSP 30 ML CUP PO PRN (11:15)
[2017-07-03] MEDS ORDERED: ZOLPIDEM TARTRATE 5 MG TAB PO PRN (11:15)
[2017-07-03] MEDS ORDERED: BISACODYL 10 MG SUPP RECTAL PRN (11:15)
[2017-07-03] MEDS ORDERED: SENNOSIDES 8.6 MG TAB PO PRN (11:15)
[2017-07-03] MEDS ORDERED: METOCLOPRAMIDE HCL 10 MG/2 ML VIAL IV PUSH PRN (11:15)
[2017-07-03] MEDS ORDERED: LACTULOSE SYRUP 20 GM/30 ML CUP PO PRN (11:15)
[2017-07-03] MEDS ORDERED: NALOXONE HCL 0.4 MG/ML AMP IV PUSH PRN (11:15)
[2017-07-03] MEDS: oxyCODONE/ACETAMINOPHEN 10 MG/325 MG TAB PO PRN ×2 (12:36→20:03)
[2017-07-03] MEDS: MORPHINE SULFATE 4 MG/ML INJ IV PUSH PRN ×3 (14:11→21:17)
--- NOTE | 2017-07-03 17:22 | EKG ---
Date Performed: 07/02/2017 Time Performed: 18:39:30 PTAGE: 62 years EKG: Sinus rhythm INDETERMINATE AXIS RIGHT BUNDLE BRANCH BLOCK LEFT ANTERIOR FASCICULAR BLOCK SEPTAL MYOCARDIAL INFARC TION , OF INDETERMINATE AGE MODERATE T-WAVE ABNORMALITY, CONSIDER ANTEROLATERAL ISCHEMIA Compared to previous tracing, there's improvement in the R force in V3, which may be due to lead placement, other [place] no significant change ABNORMAL ECG PREVIOUS TRACING : 07/01/2017 19.07 DOCTOR: Silvestre Woodall Interpretating Date/Time 07/03/2017 17:22:02
--- NOTE | 2017-07-03 17:23 | EKG ---
Date Performed: 07/03/2017 Time Performed: 06:13:06 PTAGE: 62 years EKG: Sinus bradycardia Left axis deviation RBBB with left anterior fascicular block Cannot rule out anteroseptal infarct - age undetermined LVH with secondary repolarization abnormality Inferior/la teral ST-T changes may be due to hypertrophy and/or ischemia Compared to previous tracing, no signifi cant change noted Abnormal ECG PREVIOUS TRACING : 07/02/2017 23.48 DOCTOR: Silvestre Woodall Interpretating Date/Time 07/03/2017 17:23:14
--- NOTE | 2017-07-03 17:23 | EKG ---
Date Performed: 07/02/2017 Time Performed: 23:48:58 PTAGE: 62 years EKG: Sinus bradycardia Left axis deviation RBBB with left anterior fascicular block Anteroseptal infarct - age undetermined LVH with secondary repolarization abnormality Inferior/lateral ST-T hernandez es may be due to hypertrophy and/or ischemia Compared to previous tracing, Q wave change is slightly more prominent anterolaterally, otherwise no significant change Abnormal ECG PREVIOUS TRACING : 07/02/2017 18.39 DOCTOR: Silvestre Woodall Interpretating Date/Time 07/03/2017 17:22:52
--- NOTE | 2017-07-03 18:07 | ECHRPT ---
Indication: CHEST PAIN CONCLUSIONS The left ventricular systolic function is low normal with an estimated ejection fraction in the rang e of 50- 55%. Moderate concentric left ventricular hypertrophy. Mild mitral valve regurgitation. Trace aortic valve regurgitation. There is trace tricuspid valve regurgitation. Trivial pulmonary valve regurgitation. BP: 154 / 98 HR: 116 Rhythm: Sinus MEASUREMENTS (Male / Female) Normal Values Technical Quality:Good 2D ECHO LV Diastolic Diameter PLAX 5.4 cm 4.2 - 5.9 / 3.9 - 5.3 cm LV Systolic Diameter PLAX 3.9 cm IVS Diastolic Thickness 2.0 cm 0.6 - 1.0 / 0.6 - 0.9 cm LVPW Diastolic Thickness 1.8 cm 0.6 - 1.0 / 0.6 - 0.9 cm LV Relative Wall Thickness 0.7 RV Internal Dim ED PLAX 2.6 cm LVOT Diameter 2.1 cm LA Systolic Diameter LX 3.8 cm 3.0 - 4.0 / 2.7 - 3.8 cm LV Ejection Fraction MOD 4C 61.2 % LV Ejection Fraction 4C AL 63.4 % M-MODE Aortic Root Diameter MM 3.0 cm AV Cusp Separation MM 2.0 cm DOPPLER AV Peak Velocity 139.0 cm/s AV Peak Gradient 7.7 mmHg LVOT Peak Velocity 116.0 cm/s LVOT Peak Gradient 5.4 mmHg AV Area Cont Eq pk 2.9 cm MV Area PHT 2.6 cm Mitral E Point Velocity 102.0 cm/s Mitral A Point Velocity 46.9 cm/s Mitral E to A Ratio 2.2 TR Peak Velocity 307.0 cm/s TR Peak Gradient 37.7 mmHg Right Atrial Pressure 10.0 mmHg Pulmonary Artery Systolic Pressu 47.7 mmHg Right Ventricular Systolic Press 47.7 mmHg PV Peak Velocity 89.6 cm/s PV Peak Gradient 3.2 mmHg FINDINGS LEFT VENTRICLE The left ventricular systolic function is low normal with an estimated ejection fraction in the rang e of 50- 55%. Normal left ventricular size. Moderate concentric left ventricular hypertrophy. No regional wall motion abnormalities are present. This study was not technically sufficient to allow for evaluation of left ventricular diastolic func tion. RIGHT VENTRICLE Normal right ventricular size and systolic function. LEFT ATRIUM The left atrial size is upper limits of normal. RIGHT ATRIUM The right atrial size is normal. ATRIAL SEPTUM Normal atrial septal thickness AORTA The aortic root and proximal ascending aorta are normal in size on limited imaging. MITRAL VALVE Structurally normal mitral valve. Mild mitral valve regurgitation. No mitral valve stenosis. AORTIC VALVE Trileaflet aortic valve. Trace aortic valve regurgitation. No aortic valve stenosis. TRICUSPID VALVE Structurally normal tricuspid valve. There is trace tricuspid valve regurgitation. The estimated pulmonary arterial pressure is 47.7 mmHg. PULMONARY VALVE Trivial pulmonary valve regurgitation. VESSELS The inferior vena cava is normal in size. PERICARDIUM No pericardial effusion. Mal Lebron DO (Electronically Signed) Final Date:03 July 2017 18:05
[2017-07-03] MEDS: ATORVASTATIN 10 MG TAB PO SCH (20:02)
[2017-07-03] MEDS: DOCUSATE SODIUM 50 MG/SENNA 8.6 MG TAB PO SCH (20:03)
[2017-07-03] MEDS: ENALAPRILAT 1.25 MG/ML VIAL IV PUSH PRN (21:25)
[2017-07-04] VITALS (13 sets, daily range): BP systolic 150–185; BP diastolic 91–113; PULSE 62–77; RESP 16–20; TEMP 97.3–98.4; O2SAT 90–96
[2017-07-04] MEDS: SODIUM CHLOR 0.9% 1000 ML INJ 1,000 ML IV SCH (01:04)
[2017-07-04] MEDS: oxyCODONE/ACETAMINOPHEN 10 MG/325 MG TAB PO PRN ×3 (02:09→19:54)
[2017-07-04] MEDS: cloNIDine HCL 0.1 MG TAB PO PRN (03:44)
[2017-07-04] MEDS ORDERED: RESP: ALBUTEROL 2.5 MG/IPRATROPIUM 0.5 MG NEB (PRN) NEB (06:15)
[2017-07-04] MEDS ORDERED: RESP: ALBUTEROL 2.5 MG/IPRATROPIUM 0.5 MG NEB (SCH) NEB ONE (06:15)
[2017-07-04] MEDS ORDERED: LORazepam 2 MG/ML VIAL IV PUSH ONE (06:15)
[2017-07-04] MEDS: ENALAPRILAT 1.25 MG/ML VIAL IV PUSH PRN (06:19)
--- NOTE | 2017-07-04 06:41 | RADRPT ---
EXAM DATE/TIME: 07/04/2017 06:10 [facility] COMPARISON: CHEST SINGLE AP, July 01, 2017, 19:49. INDICATIONS : Shortness of breath. MEDICAL HISTORY : Carcinoma, not otherwise specified. SURGICAL HISTORY : None. ENCOUNTER: Subsequent ACUITY: 1 day PAIN SCORE: 0/10 LOCATION: Bilateral chest FINDINGS: Single AP view of the chest. Bilateral diffuse hazy/ interstitial pulmonary opacity with lower lung z one predominance. Mild cardiac silhouette enlargement unchanged. Small right pleural effusion. No radhika dence of pneumothorax. CONCLUSION: New bilateral interstitial lung opacity with lower lobe predominance suggesting pulmonary edema. Mild cardiac silhouette enlargement unchanged. Greg Muro MD on July 04, 2017 at 6:38 Board Certified Radiologist. This report was verified electronically.
[2017-07-04] MEDS ORDERED: FUROSEMIDE 40 MG/4 ML VIAL IV PUSH ONE (06:45)
[2017-07-04 07:37] LABS: AUTOMATED NEUTROPHIL # 5.9 TH/MM3 (1.8-7.7); BASOPHIL # 0.1 TH/MM3 (0-0.2); BASOPHIL % 0.7 % (0.0-2.0); EOSINOPHIL # 0.2 TH/MM3 (0-0.4); EOSINOPHIL % 2.5 % (0.0-4.0); HEMATOCRIT 36.8 % (39.0-51.0); HEMOGLOBIN 12.3 GM/DL (13.0-17.0); LYMPH % 17.8 % (9.0-44.0); LYMPHOCYTE # 1.5 TH/MM3 (1.0-4.8); MEAN CORPUSCULAR HEMOGLOBIN 29.5 PG (27.0-34.0); MEAN CORPUSCULAR HGB CONC 33.5 % (32.0-36.0); MEAN PLATELET VOLUME 8.9 FL (7.0-11.0); MONO % 7.5 % (0.0-8.0); MONOCYTE # 0.6 TH/MM3 (0-0.9); NEUT % 71.5 % (16.0-70.0); PLATELET COUNT 228 TH/MM3 (150-450); RED BLOOD COUNT 4.18 MIL/MM3 (4.50-5.90); RED CELL DISTRIBUTION WIDTH 15.2 % (11.6-17.2); WHITE BLOOD COUNT 8.2 TH/MM3 (4.0-11.0)
[2017-07-04] MEDS: LISINOPRIL 10 MG TAB PO SCH (07:57)
[2017-07-04] MEDS: METOPROLOL TARTRATE 25 MG TAB PO SCH ×2 (07:57→19:53)
[2017-07-04] MEDS: ISOSORBIDE MONONITRATE 30 MG CR TAB (IMDUR) PO SCH (07:57)
[2017-07-04] MEDS: DOCUSATE SODIUM 50 MG/SENNA 8.6 MG TAB PO SCH ×2 (07:57→19:54)
[2017-07-04] MEDS: ASPIRIN EC 325 MG TABEC PO SCH (07:58)
[2017-07-04] MEDS: SODIUM CHLORIDE 0.9% FLUSH 10 ML FLUSH IV FLUSH SCH ×2 (07:58→19:56)
[2017-07-04 08:16] LABS: ALBUMIN 2.9 GM/DL (3.4-5.0); AST (GOT) 65 U/L (15-37); BICARBONATE 22.2 MEQ/L (21.0-32.0); BLOOD UREA NITROGEN 29 MG/DL (7-18); CALCIUM 8.5 MG/DL (8.5-10.1); CHLORIDE 111 MEQ/L (98-107); CREATININE 2.39 MG/DL (0.60-1.30); GLOMERULAR FILTRATION RATE 28 ML/MIN (>89); GLUCOSE,RANDOM 88 MG/DL (74-106); MAGNESIUM 2.1 MG/DL (1.5-2.5); SODIUM (NA) 141 MEQ/L (136-145)
[2017-07-04 08:26] LABS: ALKALINE PHOSPHATASE 134 U/L (45-117); ALT (GPT) 81 U/L (12-78); FREE T4 1.04 NG/DL (0.76-1.46); PHOSPHORUS 3.1 MG/DL (2.5-4.9); TOTAL BILIRUBIN ADULT 0.3 MG/DL (0.2-1.0); TOTAL PROTEIN 7.6 GM/DL (6.4-8.2)
--- NOTE | 2017-07-04 10:51 | HHI.PR ---
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 Patient presented to the hospital complaining of almost few days of chest pain comes and goes no diaphoresis in the center of the chest no cough no fever or chills. No exacerbating or alleviating factor, patient also have right sided neck mass under his jaw that he noticed a few weeks ago it is about 2 cm rubbery, patient is concerned about having lymphoma or infection he denied drug abuse. Patient mentioned he has breast prostate cancer 10 years ago which has been treated with surgery and in remission, patient had physical injury that caused him to lose the right side and he has a metal reconstruction facial surgery in the past, history of hep C, COPD, history of PTSD 4-7 PATIENT SEEN BY ENT AND ONCOLOGY TO HAVE BIOPSY OF RIGHT NECK TOMORROW NPO AFTERMIDNIGHT LELO RN AND PT AND CASE MANAGEMENT PAIN CONTROL 4-8 WILL CONSULT IR FOR BIOPSY OF RIGHT SIDE LYMPH NODE LELO RN AND PT AND CM HAD ATIVAN LAST NIGHT BECAME CONFUSED NO MORE ATIVAN EVER Objective Vitals Vital Signs Date Time Temp Pulse Resp B/P (MAP) Pulse Ox O2 Delivery O2 Flow Rate FiO2 07/04/17 10:39 92 Nasal Cannula 3.00 07/04/17 08:05 96 Nasal Cannula 3.00 07/04/17 08:05 69 07/04/17 06:30 73 16 179/113 (135) 91 07/04/17 06:15 95 Nasal Cannula 3.00 07/04/17 05:58 70 185/102 (129) 94 07/04/17 04:00 63 07/04/17 03:41 98.0 64 17 175/102 (126) 95 07/04/17 01:06 92 Nasal Cannula 2.50 07/04/17 00:50 97.3 67 16 157/92 (113) 90 07/04/17 00:00 62 07/03/17 23:45 55 07/03/17 23:00 67 16 165/98 (120) 94 07/03/17 21:30 65 16 161/98 (119) 92 07/03/17 21:20 174/93 (120) 07/03/17 20:00 60 07/03/17 19:53 97.7 62 18 165/93 (117) 95 07/03/17 19:21 21 07/03/17 16:30 98.7 85 18 162/101 (121) 94 07/03/17 16:00 55 07/03/17 12:30 97.4 67 18 160/95 (116) 96 07/03/17 12:00 56 I/O 07/03/17 07/03/17 07/03/17 07/04/17 07/04/17 07/04/17 07:00 15:00 23:00 07:00 15:00 23:00 Intake Total 240 ml 1000 ml 960 ml 480 ml Output Total 120 ml 500 ml 600 ml Balance 120 ml 1000 ml 460 ml -120 ml Intake Oral 240 ml 960 ml 480 ml IV Total 1000 ml Output Urine Total 120 ml 500 ml 600 ml # Voids 4 2 # Bowel Movements 1 Result Diagram: 07/04/17 0533 07/04/17 0533 Other Results Laboratory Tests Test 07/01/17 19:35 07/02/17 00:30 07/02/17 02:54 07/02/17 07:44 White Blood Count 7.6 TH/MM3 7.0 TH/MM3 Red Blood Count 4.26 MIL/MM3 4.17 MIL/MM3 Hemoglobin 12.6 GM/DL 12.2 GM/DL Hematocrit 37.0 % 36.0 % Mean Corpuscular Volume 86.9 FL 86.5 FL Mean Corpuscular Hemoglobin 29.5 PG 29.3 PG Mean Corpuscular Hemoglobin Concent 33.9 % 33.9 % Red Cell Distribution Width 14.9 % 14.9 % Platelet Count 262 TH/MM3 266 TH/MM3 Mean Platelet Volume 7.6 FL 7.7 FL Neutrophils (%) (Auto) 68.2 % 58.2 % Lymphocytes (%) (Auto) 21.4 % 27.8 % Monocytes (%) (Auto) 7.8 % 9.1 % Eosinophils (%) (Auto) 1.7 % 4.0 % Basophils (%) (Auto) 0.9 % 0.9 % Neutrophils # (Auto) 5.2 TH/MM3 4.1 TH/MM3 Lymphocytes # (Auto) 1.6 TH/MM3 1.9 TH/MM3 Monocytes # (Auto) 0.6 TH/MM3 0.6 TH/MM3 Eosinophils # (Auto) 0.1 TH/MM3 0.3 TH/MM3 Basophils # (Auto) 0.1 TH/MM3 0.1 TH/MM3 CBC Comment DIFF FINAL DIFF FINAL Differential Comment Prothrombin Time 10.6 SEC Prothromb Time International Ratio 1.0 RATIO Activated Partial Thromboplast Time 27.3 SEC Blood Urea Nitrogen 28 MG/DL 30 MG/DL Creatinine 2.88 MG/DL 2.65 MG/DL Random Glucose 69 MG/DL 86 MG/DL Total Protein 8.0 GM/DL 7.0 GM/DL Albumin 3.3 GM/DL 2.7 GM/DL Calcium Level 8.6 MG/DL 7.9 MG/DL Magnesium Level 1.9 MG/DL Alkaline Phosphatase 151 U/L 133 U/L Aspartate Amino Transf (AST/SGOT) 74 U/L 64 U/L Alanine Aminotransferase (ALT/SGPT) 93 U/L 81 U/L Total Bilirubin 0.3 MG/DL 0.3 MG/DL Sodium Level 139 MEQ/L 142 MEQ/L Potassium Level 4.2 MEQ/L 4.0 MEQ/L Chloride Level 109 MEQ/L 113 MEQ/L Carbon Dioxide Level 19.5 MEQ/L 24.1 MEQ/L Anion Gap 11 MEQ/L 5 MEQ/L Estimat Glomerular Filtration Rate 22 ML/MIN 25 ML/MIN Total Creatine Kinase 181 U/L 140 U/L 111 U/L Creatine Kinase MB 5.5 NG/ML Troponin I 0.06 NG/ML 0.07 NG/ML 0.08 NG/ML Triglycerides Level 69 MG/DL Cholesterol Level 128 MG/DL LDL Cholesterol 73 MG/DL HDL Cholesterol 41.6 MG/DL Cholesterol/HDL Ratio 3.07 RATIO Test 07/02/17 18:31 07/03/17 02:21 07/03/17 09:15 07/04/17 05:33 White Blood Count 6.6 TH/MM3 8.2 TH/MM3 Red Blood Count 4.54 MIL/MM3 4.18 MIL/MM3 Hemoglobin 13.3 GM/DL 12.3 GM/DL Hematocrit 39.6 % 36.8 % Mean Corpuscular Volume 87.3 FL 88.0 FL Mean Corpuscular Hemoglobin 29.2 PG 29.5 PG Mean Corpuscular Hemoglobin Concent 33.5 % 33.5 % Red Cell Distribution Width 15.0 % 15.2 % Platelet Count 252 TH/MM3 228 TH/MM3 Mean Platelet Volume 7.8 FL 8.9 FL Prothrombin Time 10.5 SEC Prothromb Time International Ratio 1.0 RATIO Activated Partial Thromboplast Time 25.8 SEC 29.9 SEC 32.5 SEC Neutrophils (%) (Auto) 71.5 % Lymphocytes (%) (Auto) 17.8 % Monocytes (%) (Auto) 7.5 % Eosinophils (%) (Auto) 2.5 % Basophils (%) (Auto) 0.7 % Neutrophils # (Auto) 5.9 TH/MM3 Lymphocytes # (Auto) 1.5 TH/MM3 Monocytes # (Auto) 0.6 TH/MM3 Eosinophils # (Auto) 0.2 TH/MM3 Basophils # (Auto) 0.1 TH/MM3 CBC Comment DIFF FINAL Differential Comment Blood Urea Nitrogen 29 MG/DL Creatinine 2.39 MG/DL Random Glucose 88 MG/DL Total Protein 7.6 GM/DL Albumin 2.9 GM/DL Calcium Level 8.5 MG/DL Phosphorus Level 3.1 MG/DL Magnesium Level 2.1 MG/DL Alkaline Phosphatase 134 U/L Aspartate Amino Transf (AST/SGOT) 65 U/L Alanine Aminotransferase (ALT/SGPT) 81 U/L Total Bilirubin 0.3 MG/DL Sodium Level 141 MEQ/L Potassium Level 4.6 MEQ/L Chloride Level 111 MEQ/L Carbon Dioxide Level 22.2 MEQ/L Anion Gap 8 MEQ/L Estimat Glomerular Filtration Rate 28 ML/MIN Free Thyroxine 1.04 NG/DL Thyroid Stimulating Hormone 3rd Gen 2.370 uIU/ML Test 07/04/17 07:20 Blood Gas Puncture Site LT RADIAL Blood Gas Patient Temperature 98.6 Blood Gas HCO3 22 mmol/L Blood Gas Base Excess -3.5 mmol/L Blood Gas Oxygen Saturation 90 % Arterial Blood pH 7.32 Arterial Blood Partial Pressure CO2 44 mmHg Arterial Blood Partial Pressure O2 70 mmHg Arterial Blood Oxygen Content 14.9 Vol % Arterial Blood Carboxyhemoglobin 1.2 % Arterial Blood Methemoglobin 1.0 % Blood Gas Hemoglobin 11.7 G/DL Blood Gas Liter Flow 3 L/M Imaging Last Impressions Chest X-Ray 07/04/17 0000 Signed Impressions: Service Date/Time: Tuesday, July 04, 2017 06:10 - CONCLUSION: New bilateral interstitial lung opacity with lower lobe predominance suggesting pulmonary edema. Mild cardiac silhouette enlargement unchanged. Greg Muro MD Chest CT 07/02/17 0000 Signed Impressions: Service Date/Time: Sunday, July 02, 2017 23:23 - CONCLUSION: 1. Mild patchy atelectasis and scarring in the lungs. No pulmonary nodules or masses identified. 2. Borderline enlarged pretracheal and precarinal lymph nodes. 3. Small bilateral pleural effusions. Greg Muro MD Neck CT 07/01/17 0000 Signed Impressions: Service Date/Time: June 20:52 - CONCLUSION: 1. There is a least a 2.5 cm mass in the posterior right lingual region with probable metastatic adenopathy in the upper right cervical region measuring up to 2.9 cm in diameter. 2. Chronic right maxillary sinus disease with thinning or erosion of the anterior and posterior patiño of the right maxillary sinus and complete sinus opacification. 3. Extensive dental caries with small periapical abscesses in the mandible. Neel Lal MD Objective Remarks GENERAL: Awake alert and oriented 3 talkative and cooperative SKIN: Warm and dry. HEAD: Atraumatic. Normocephalic. EYES: Pupils equal and round. No scleral icterus. No injection or drainage. Extraocular muscles intact ENT: No nasal bleeding or discharge. Mucous membranes pink and moist. Tongue is midline NECK: Trachea midline. No JVD. Supple right-sided lymphadenopathy CARDIOVASCULAR: Regular rate and rhythm. S1-S2 no S3-S4 RESPIRATORY: No accessory muscle use. Clear to auscultation. Breath sounds equal bilaterally. GASTROINTESTINAL: Abdomen soft, non-tender, nondistended. Hepatic and splenic margins not palpable. MUSCULOSKELETAL: Extremities without clubbing, cyanosis, or edema. No obvious deformities. NEUROLOGICAL: Awake and alert. No obvious cranial nerve deficits. Motor grossly within normal limits. Five out of 5 muscle strength in the arms and legs. Normal speech. PSYCHIATRIC: Appropriate mood and affect; insight and judgment normal. Medications and IVs Current Medications Aspirin (Aspirin Chew) 324 mg ONCE ONCE PO Last administered on 07/01/17at 19:45 ; Start 07/01/17 at 19:15; Stop 07/01/17 at 19:16; Status DC Sodium Chloride (NS Flush) 2 ml UNSCH PRN IVF FLUSH AFTER USING IV ACCESS; Start 07/01/17 at 19:15; Stop 07/01/17 at 22:52; Status DC Sodium Chloride 1,000 ml @ 125 mls/hr Q8H IV Last administered on 07/01/17 23: 28; Start 07/01/17 at 20:29; Stop 07/02/17 at 04:28; Status DC Morphine Sulfate (Morphine Inj) 4 mg ONCE ONCE IV PUSH Last administered on 23:27; Start 07/01/17 at 21:45; Stop 07/01/17 at 21:46; Status DC Sodium Chloride 1,000 ml @ 100 mls/hr Q10H IV Last administered on 07/04/17at 01 :04; Start 07/01/17 at 23:00; Status Future Hold Sodium Chloride (NS Flush) 2 ml BID IV FLUSH Last administered on 07/04/17at 07: 58; Start 07/02/17 at 09:00 Sodium Chloride (NS Flush) 2 ml UNSCH PRN IV FLUSH FLUSH AFTER USING IV ACCESS ; Start 07/01/17 at 22:30 Nitroglycerin (Nitrostat Sl) 0.4 mg Q5M PRN SL ANGINA; Start 07/01/17 at 22:30; Stop 07/03/17 at 08:40; Status DC Acetaminophen (Tylenol) 500 mg Q4H PRN PO HEADACHE; Start 07/01/17 at 22:30 Acetaminophen/ Hydrocodone Bitart (Erskine 7.5-325 Mg) 1 tab Q4H PRN PO PAIN SCALE 1 TO 5 Last administered on 07/02/17at 12:35; Start 07/01/17 at 22:30; Stop 07/03/17 at 11:32; Status DC Morphine Sulfate (Morphine Inj) 2 mg Q3H PRN IV PUSH PAIN SCALE 6 TO 10 Last administered on 07/03/17at 09:19; Start 07/01/17 at 23:00; Stop 07/03/17 at 11:32; Status DC Heparin Sodium (Porcine) (Heparin Inj) 5,000 units Q8H SQ Last administered on 07/02/17at 14:41; Start 07/01/17 at 22:30; Stop 07/02/17 at 18:11; Status DC Amlodipine Besylate (Norvasc) 10 mg DAILY PO Last administered on 07/04/17at 07: 57; Start 07/02/17 at 09:00 Morphine Sulfate (Morphine Inj) 4 mg ONCE ONCE IV PUSH ; Start 07/01/17 at 23:00 ; Stop 07/01/17 at 23:01; Status DC Hydralazine HCl (Apresoline Inj) 10 mg ONCE ONCE IV PUSH Last administered on 07/02/17at 00:39; Start 07/02/17 at 00:15; Stop 07/02/17 at 00:16; Status DC Clonidine (Catapres) 0.1 mg Q6H PRN PO SBP>160, DBP>90 Last administered on 07/04 03:44; Start 07/02/17 at 00:15 Hydralazine HCl (Apresoline Inj) 20 mg ONCE ONCE IV PUSH Last administered on 07/02/17 04:25; Start 07/02/17 at 04:15; Stop 07/02/17 at 04:17; Status DC Aspirin (Ecotrin Ec) 325 mg DAILY PO Last administered on 07/04/17 07:58; Start 07/03/17 at 09:00 Nitroglycerin (Nitrostat Sl) 0.4 mg Q5M PRN SL CHEST PAIN; Start 07/02/17 at 18: 15 Metoprolol Tartrate (Lopressor) 12.5 mg BID PO Last administered on 07/04/17 07 :57; Start 07/02/17 at 21:00 Atorvastatin Calcium (Lipitor) 10 mg HS PO Last administered on 07/03/17 20:02 ; Start 07/02/17 at 21:00 Heparin Sodium/ Dextrose 250 ml @ 0 mls/hr TITRATE PRN IV Coagulation Management; Start 07/02/17 at 18:15; Status UNV Heparin Sodium/ Dextrose 250 ml @ 8 mls/hr TITRATE PRN IV Coagulation Management Last administered on 07/02/17 20:37; Start 07/02/17 at 18:45; Stop 07/03/17 at 08:30; Status DC Enalaprilat (Vasotec Inj) 1.25 mg Q6H PRN IV PUSH bp>160/90 Last administered on 07/04/17 06:19; Start 07/02/17 at 19:15 Lisinopril (Prinivil) 10 mg DAILY PO Last administered on 07/04/17 07:57; Start 07/03/17 at 09:00 Isosorbide Mononitrate (Imdur) 30 mg DAILY@07 PO Last administered on 07/04/17at 07:57; Start 07/03/17 at 09:00 Acetaminophen (Tylenol) 650 mg Q4H PRN PO TEMP > 100.4; Start 07/03/17 at 11:15 Ondansetron HCl (Zofran Inj) 4 mg Q6H PRN IVP NAUSEA OR VOMITING Last administered on 07/03/17at 20:06; Start 07/03/17 at 11:15 Metoclopramide HCl (Reglan Inj) 5 mg Q6H PRN IV PUSH NAUSEA OR VOMITING; Start 07/03/17 at 11:15 Zolpidem Tartrate (Ambien) 5 mg HS PRN PO INSOMNIA; Start 07/03/17 at 11:15 Acetaminophen (Tylenol) 650 mg Q6H PRN PO PAIN SCALE 1 TO 2; Start 07/03/17 at 11:15 Oxycodone/ Acetaminophen (Percocet 5-325 Mg) 1 tab Q6H PRN PO PAIN SCALE 3 TO 5; Start 07/03/17 at 11:15 Oxycodone/ Acetaminophen (Percocet 10-325 Mg) 1 tab Q6H PRN PO PAIN SCALE 6 TO 10 Last administered on 07/04/17at 02:09; Start 07/03/17 at 11:15 Morphine Sulfate (Morphine Inj) 2 mg Q3H PRN IV PUSH Pain 3-5; if PO NOT WORKING Last administered on 07/04/17at 03:36; Start 07/03/17 at 11:15 Morphine Sulfate (Morphine Inj) 4 mg Q3H PRN IV PUSH Pain 6-10;if PO NOT WORKING Last administered on 07/03/17at 17:09; Start 07/03/17 at 11:15 Morphine Sulfate (Morphine Inj) 4 mg Q3H PRN IV PUSH BREAKTHROUGH PAIN Last administered on 07/03/17at 21:17; Start 07/03/17 at 11:15 Naloxone HCl (Narcan Inj) 0.4 mg UNSCH PRN IV PUSH SEE LABEL COMMENTS; Start at 11:15 Senna/Docusate Sodium (Mary Lou-Colace) 1 tab BID PO Last administered on 07/04/17at 07:57; Start 07/03/17 at 21:00 Magnesium Hydroxide (Milk Of Magnesia Liq) 30 ml Q12H PRN PO Mild constipation ; Start 07/03/17 at 11:15 Sennosides (Senokot) 17.2 mg Q12H PRN PO Moderate constipation; Start 07/03/17 at 11:15 Bisacodyl (Dulcolax Supp) 10 mg DAILY PRN RECTAL SEVERE CONSITIPATION; Start at 11:15 Lactulose (Lactulose Liq) 30 ml DAILY PRN PO SEVERE CONSITIPATION; Start at 11:15 Lorazepam (Ativan Inj) 0.5 mg ONCE ONCE IV PUSH Last administered on 07/04/17at 06:18; Start 07/04/17 at 06:15; Stop 07/04/17 at 06:16; Status DC Albuterol/ Ipratropium (Duoneb Neb) 1 ampule ONCE ONCE NEB Last administered on 07/04/17at 06:44; Start 07/04/17 at 06:15; Stop 07/04/17 at 06:16; Status DC Albuterol/ Ipratropium (Duoneb Neb) 1 ampule Q4HR NEB PRN NEB sob/wheezing; Start 07/04/17 at 06:15 Furosemide (Lasix Inj) 40 mg ONCE ONCE IV PUSH Last administered on 07/04/17at 06:49; Start 07/04/17 at 06:45; Stop 07/04/17 at 06:46; Status DC A/P Assessment and Plan 62 years old male veterans with history of prostate cancer presented with chest pain and right neck mass Chest pain atypical rule out ACS 2.5 cm adenopathy submandibular showed on CT of the neck Elevated troponin Uncontrolled hypertension ADD HYDRALAZINE- ON DILMA, BETA, AMLODIPINE,PRN CATAPRES ADD HYDRALAZINE History of coronary artery disease patient had stress test 10 years ago which was negative Chronic kidney disease with creatinine baseline around 2 History of prostate cancer in remission 10 years ago History of PTSD History of hep C DVT prophylaxis will be on heparin drip Plan: Admit to inpatient with telemetry 3 sets of cardiac enzymes [id number] Morphine, sublingual nitroglycerin, Start heparin drip, consult cardiology, EKG reviewed personally by me showing sinus rhythm with left atrial hypertrophy, which can explain the extra heart sounds revealed on exam, RBBB with possible anteroseptal ischemia- NO INTERVENTIONS PER CARDIOLOGY Consult oncology for neck lymph node, discussed with Dr. Pena and he showed me on the CT scan possible basal lung mass which can be contributed, recommended ENT consult - WILL CONSULT IR FOR LYMPH NODE BIOPSY Continue amlodipine and lisinopril from med rec, creatinine seems to be around his baseline so we will continue DILMA inhibitor, Vasotec as needed Discharge Planning Pending oncology clearance Corey Mann DO Jul 04, 2017 10:51
[2017-07-04] MEDS ORDERED: NICOTINE 14 MG/24 HR PATCH T-DERMAL ONE (12:00)
[2017-07-04 12:49] LABS: HEMOGLOBIN A1C 5.1 % (4.3-6.0)
[2017-07-04] MEDS: hydrALAZINE HCL 50 MG TAB PO SCH ×3 (15:00→22:00)
[2017-07-04] MEDS: ATORVASTATIN 10 MG TAB PO SCH (19:54)
[2017-07-04] MEDS: MORPHINE SULFATE 4 MG/ML INJ IV PUSH PRN (22:16)
[2017-07-05] VITALS (14 sets, daily range): BP systolic 165–202; BP diastolic 90–118; PULSE 60–87; RESP 12–20; TEMP 97–97.8; O2SAT 92–98
[2017-07-05] MEDS: cloNIDine HCL 0.1 MG TAB PO PRN ×2 (01:15→15:24)
[2017-07-05] MEDS: oxyCODONE/ACETAMINOPHEN 10 MG/325 MG TAB PO PRN (03:14)
[2017-07-05] MEDS: ENALAPRILAT 1.25 MG/ML VIAL IV PUSH PRN ×3 (03:17→18:22)
[2017-07-05] MEDS: hydrALAZINE HCL 50 MG TAB PO SCH ×3 (04:50→22:33)
[2017-07-05] MEDS: MORPHINE SULFATE 4 MG/ML INJ IV PUSH PRN ×6 (04:50→22:34)
[2017-07-05] MEDS: ISOSORBIDE MONONITRATE 30 MG CR TAB (IMDUR) PO SCH (06:22)
--- NOTE | 2017-07-05 08:06 | PD.ONC.PN ---
Subjective Subjective Remarks Patient seen and examined, vital signs, labs, medications reviewed. Patient tells me he was seen by an ENT surgeon over the weekend who performed a laryngoscopy. The patient was told the tumor was found behind his tongue. The patient is now reporting pain with swallowing and pain along the right side of his neck. He tells me he has a history of hepatitis C. He is not aware of kidney problems. Objective Data Date Time Temp Pulse Resp B/P (MAP) Pulse Ox O2 Delivery O2 Flow Rate FiO2 07/05/17 04:00 81 07/05/17 03:16 73 16 175/92 (119) 93 07/05/17 02:17 77 07/05/17 01:20 92 Nasal Cannula 3.00 07/05/17 01:01 97.6 87 17 191/106 (134) 92 07/05/17 00:00 70 07/04/17 20:00 75 18 175/100 (125) 95 07/04/17 20:00 95 Room Air 07/04/17 20:00 77 07/04/17 16:46 98.4 64 18 150/91 (110) 96 07/04/17 16:00 64 07/04/17 12:40 97.8 69 20 170/99 (122) 94 07/04/17 12:00 65 07/04/17 10:39 92 Nasal Cannula 3.00 07/05/17 07/05/17 07/05/17 07:00 15:00 23:00 Intake Total 240 ml Output Total 200 ml Balance 40 ml Result Diagram: 07/04/17 0533 07/04/17 0533 Administered Medications Medications (Trade) Dose Ordered Sig/James Route PRN Reason Start Time Stop Time Status Last Admin Dose Admin Sodium Chloride 1,000 ml @ 100 mls/hr Q10H IV 07/01/17 23:00 Future Hold 07/04/17 01:04 Sodium Chloride (NS Flush) 2 ml BID IV FLUSH 07/02/17 09:00 07/04/17 19:56 Amlodipine Besylate (Norvasc) 10 mg DAILY PO 07/02/17 09:00 07/04/17 07:57 Aspirin (Ecotrin Ec) 325 mg DAILY PO 07/03/17 09:00 07/04/17 07:58 Metoprolol Tartrate (Lopressor) 12.5 mg BID PO 07/02/17 21:00 07/04/17 19:53 Atorvastatin Calcium (Lipitor) 10 mg HS PO 07/02/17 21:00 07/04/17 19:54 Enalaprilat (Vasotec Inj) 1.25 mg Q6H PRN IV PUSH bp>160/90 07/02/17 19:15 07/05/17 03:17 Lisinopril (Prinivil) 10 mg DAILY PO 07/03/17 09:00 07/04/17 07:57 Isosorbide Mononitrate (Imdur) 30 mg DAILY@07 PO 07/03/17 09:00 07/05/17 06:22 Ondansetron HCl (Zofran Inj) 4 mg Q6H PRN IVP NAUSEA OR VOMITING 07/03/17 11:15 07/03/17 20:06 Oxycodone/ Acetaminophen (Percocet 10-325 Mg) 1 tab Q6H PRN PO PAIN SCALE 6 TO 10 07/03/17 11:15 07/05/17 03:14 Morphine Sulfate (Morphine Inj) 2 mg Q3H PRN IV PUSH Pain 3-5; if PO NOT WORKING 07/03/17 11:15 07/04/17 03:36 Morphine Sulfate (Morphine Inj) 4 mg Q3H PRN IV PUSH Pain 6-10;if PO NOT WORKING 07/03/17 11:15 07/03/17 17:09 Morphine Sulfate (Morphine Inj) 4 mg Q3H PRN IV PUSH BREAKTHROUGH PAIN 07/03/17 11:15 07/05/17 04:50 Senna/Docusate Sodium (Mary Lou-Colace) 1 tab BID PO 07/03/17 21:00 07/04/17 19:54 Hydralazine HCl (Apresoline) 50 mg Q8HR PO 07/04/17 14:00 07/05/17 04:50 Clonidine (Catapres) 0.1 mg Q4H PRN PO SBP>160, DBP>90 07/04/17 11:00 07/05/17 01:15 Objective Remarks GENERAL PHYSICAL APPEARANCE: Mr. Beard is a middle-aged male. He is of medium height and moderate build. He appears to be in no acute distress and has a pleasant disposition. HEENT: Head is atraumatic, normocephalic. Conjunctivae are non pale. Sclerae are anicteric, EOMI, PERRLA. Oral exam - No pharyngeal erythema. No masses noted. He has multiple teeth in various stages of decay. NECK: Pathologically enlarged right level II cervical lymph node. This is attached to the underlying soft tissues. No additional submental, cervical or supraclavicular lymphadenopathy is noted. RESPIRATORY: Good air movement bilaterally, no added breath sounds. CARDIOVASCULAR: Regular rate and rhythm. S1, S2. No obvious murmurs, rubs or gallops. ABDOMEN: Thin belly. Soft and nontender, nondistended. No palpable organ enlargement. EXTREMITIES: No pretibial edema, no calf tenderness. LICENSED DIRECT ENTRY MIDWIFE: Focal sensory or motor deficits. MUSCULOSKELETAL: Adequate muscle mass, tone and strength. Assessment/Plan Assessment Mr. Beard is a 62-year-old male with a significant history of tobaccoism who presents to the hospital with complaints of a mass along the right side of the neck, which has been enlarging over the past 1 month. He denies symptoms of difficulty swallowing or soreness in the throat. 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 On imaging studies, he was noted to have a mass along the right base of the tongue/hypopharyngeal area associated with pathologically enlarged right-sided upper cervical lymphadenopathy. Additionally, he was noted to have renal insufficiency with a creatinine of 2.8 at the time of presentation with an EGFR in the low 20s. The patient's renal failure appears to be acute on chronic. 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 Plan Mr. Beard was found to have a mass involving the hypopharynx on flexible laryngoscopy per his own report. I do not see a written report either in the chart or in the EMR from the ENT consultation. The patient is not certain which surgeon was in to see him he does not recall the name. CT thorax results are reviewed, there is no definite evidence of metastatic disease to mediastinal lymph nodes or to the lung parenchyma. He will still need an outpatient PET CT scan for staging. Mr. Beard is expressed his desire to have pre-treatment workup performed in the inpatient setting. He tells me he wants to get going "as soon as possible ". I have therefore requested a radiation oncology evaluation as well as an evaluation by an oral surgeon for tooth extraction. A feeding tube will be required to help maintain nutrition once he does start treatment. At this point I do not see the role for neoadjuvant therapy given the anticipation of starting treatment with minimal delays. 1. Await ultrasound/image guided biopsy of the right level II cervical lymph node. 2. I will consult that oral surgery for maxillary tooth extraction in preparation for radiation. 3. Consult radiation oncology. 4. Interventional radiology consultation for feeding tube placement. Disposition: Remain inpatient until pretreatment workup/evaluations and procedures are performed. Mateo Pena MD Jul 05, 2017 08:06
[2017-07-05] MEDS: NICOTINE 14 MG/24 HR PATCH T-DERMAL SCH (08:46)
[2017-07-05] MEDS: METOPROLOL TARTRATE 25 MG TAB PO SCH ×2 (08:47→22:32)
[2017-07-05] MEDS: DOCUSATE SODIUM 50 MG/SENNA 8.6 MG TAB PO SCH ×2 (08:48→22:33)
[2017-07-05] MEDS: LISINOPRIL 10 MG TAB PO SCH (08:48)
[2017-07-05] MEDS: ASPIRIN EC 325 MG TABEC PO SCH (08:49)
[2017-07-05] MEDS: SODIUM CHLORIDE 0.9% FLUSH 10 ML FLUSH IV FLUSH SCH ×2 (08:49→22:29)
[2017-07-05] MEDS: REMOVE OLD PATCH T-DERMAL SCH (09:00)
[2017-07-05 09:02] LABS: WHITE BLOOD COUNT 9.3 TH/MM3 (4.0-11.0)
[2017-07-05 09:03] LABS: AUTOMATED NEUTROPHIL # 6.2 TH/MM3 (1.8-7.7); BASOPHIL # 0.1 TH/MM3 (0-0.2); EOSINOPHIL # 0.2 TH/MM3 (0-0.4); EOSINOPHIL % 2.2 % (0.0-4.0); HEMATOCRIT 38.7 % (39.0-51.0); LYMPH % 21.2 % (9.0-44.0); MEAN CELL VOLUME 85.9 FL (80.0-100.0); MEAN CORPUSCULAR HEMOGLOBIN 28.9 PG (27.0-34.0); MEAN CORPUSCULAR HGB CONC 33.7 % (32.0-36.0); MEAN PLATELET VOLUME 8.3 FL (7.0-11.0); MONO % 8.7 % (0.0-8.0); MONOCYTE # 0.8 TH/MM3 (0-0.9); NEUT % 66.9 % (16.0-70.0); PLATELET COUNT 275 TH/MM3 (150-450); RED CELL DISTRIBUTION WIDTH 14.5 % (11.6-17.2)
[2017-07-05 09:05] LABS: INTERNATIONAL NORMALIZED RATIO 1.1 RATIO; PROTHROMBIN TIME - PATIENT 10.7 SEC (9.8-11.6)
[2017-07-05 09:48] LABS: ALBUMIN 3.1 GM/DL (3.4-5.0); ALT (GPT) 83 U/L (12-78); AST (GOT) 65 U/L (15-37); BICARBONATE 23.7 MEQ/L (21.0-32.0); BLOOD UREA NITROGEN 31 MG/DL (7-18); CALCIUM 8.9 MG/DL (8.5-10.1); CHLORIDE 108 MEQ/L (98-107); CREATININE 2.41 MG/DL (0.60-1.30); GLOMERULAR FILTRATION RATE 28 ML/MIN (>89); GLUCOSE,RANDOM 88 MG/DL (74-106); SODIUM (NA) 137 MEQ/L (136-145)
[2017-07-05 09:51] LABS: ALKALINE PHOSPHATASE 161 U/L (45-117); TOTAL BILIRUBIN ADULT 0.7 MG/DL (0.2-1.0); TOTAL PROTEIN 8.1 GM/DL (6.4-8.2)
--- NOTE | 2017-07-05 10:52 | HHI.PR ---
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 Patient presented to the hospital complaining of almost few days of chest pain comes and goes no diaphoresis in the center of the chest no cough no fever or chills. No exacerbating or alleviating factor, patient also have right sided neck mass under his jaw that he noticed a few weeks ago it is about 2 cm rubbery, patient is concerned about having lymphoma or infection he denied drug abuse. Patient mentioned he has breast prostate cancer 10 years ago which has been treated with surgery and in remission, patient had physical injury that caused him to lose the right side and he has a metal reconstruction facial surgery in the past, history of hep C, COPD, history of PTSD 4-7 PATIENT SEEN BY ENT AND ONCOLOGY TO HAVE BIOPSY OF RIGHT NECK TOMORROW NPO AFTERMIDNIGHT DW RN AND PT AND CASE MANAGEMENT PAIN CONTROL 4-8 WILL CONSULT IR FOR BIOPSY OF RIGHT SIDE LYMPH NODE LELO RN AND PT AND CM HAD ATIVAN LAST NIGHT BECAME CONFUSED NO MORE ATIVAN EVER 4-9 patient is scheduled to have biopsy of right side of neck/lymph node Discussed with patient and RN and case management Oncology has consulted interventional radiology for PEG as well as for dentistry for tooth removal has also been consulted by radiation Objective Vitals Vital Signs Date Time Temp Pulse Resp B/P (MAP) Pulse Ox O2 Delivery O2 Flow Rate FiO2 07/05/17 04:00 81 07/05/17 03:16 73 16 175/92 (119) 93 07/05/17 02:17 77 07/05/17 01:20 92 Nasal Cannula 3.00 07/05/17 01:01 97.6 87 17 191/106 (134) 92 07/05/17 00:00 70 07/04/17 20:00 75 18 175/100 (125) 95 07/04/17 20:00 95 Room Air 07/04/17 20:00 77 07/04/17 16:46 98.4 64 18 150/91 (110) 96 07/04/17 16:00 64 07/04/17 12:40 97.8 69 20 170/99 (122) 94 07/04/17 12:00 65 I/O 4/8/18 4/11/1307/04/17 07/05/17 07/05/17 07/05/17 07:00 15:00 23:00 07:00 15:00 23:00 Intake Total 480 ml 1320 ml 240 ml Output Total 600 ml 1250 ml 200 ml Balance -120 ml 70 ml 40 ml Intake Oral 480 ml 1320 ml 240 ml Output Urine Total 600 ml 1250 ml 200 ml # Voids 2 # Bowel Movements 1 Result Diagram: 07/05/17 0754 07/05/17 0754 Other Results Laboratory Tests Test 07/02/17 18:31 07/03/17 02:21 07/03/17 09:15 07/04/17 05:33 White Blood Count 6.6 TH/MM3 8.2 TH/MM3 Red Blood Count 4.54 MIL/MM3 4.18 MIL/MM3 Hemoglobin 13.3 GM/DL 12.3 GM/DL Hematocrit 39.6 % 36.8 % Mean Corpuscular Volume 87.3 FL 88.0 FL Mean Corpuscular Hemoglobin 29.2 PG 29.5 PG Mean Corpuscular Hemoglobin Concent 33.5 % 33.5 % Red Cell Distribution Width 15.0 % 15.2 % Platelet Count 252 TH/MM3 228 TH/MM3 Mean Platelet Volume 7.8 FL 8.9 FL Prothrombin Time 10.5 SEC Prothromb Time International Ratio 1.0 RATIO Activated Partial Thromboplast Time 25.8 SEC 29.9 SEC 32.5 SEC Neutrophils (%) (Auto) 71.5 % Lymphocytes (%) (Auto) 17.8 % Monocytes (%) (Auto) 7.5 % Eosinophils (%) (Auto) 2.5 % Basophils (%) (Auto) 0.7 % Neutrophils # (Auto) 5.9 TH/MM3 Lymphocytes # (Auto) 1.5 TH/MM3 Monocytes # (Auto) 0.6 TH/MM3 Eosinophils # (Auto) 0.2 TH/MM3 Basophils # (Auto) 0.1 TH/MM3 CBC Comment DIFF FINAL Differential Comment Blood Urea Nitrogen 29 MG/DL Creatinine 2.39 MG/DL Random Glucose 88 MG/DL Total Protein 7.6 GM/DL Albumin 2.9 GM/DL Calcium Level 8.5 MG/DL Phosphorus Level 3.1 MG/DL Magnesium Level 2.1 MG/DL Alkaline Phosphatase 134 U/L Aspartate Amino Transf (AST/SGOT) 65 U/L Alanine Aminotransferase (ALT/SGPT) 81 U/L Total Bilirubin 0.3 MG/DL Sodium Level 141 MEQ/L Potassium Level 4.6 MEQ/L Chloride Level 111 MEQ/L Carbon Dioxide Level 22.2 MEQ/L Anion Gap 8 MEQ/L Estimat Glomerular Filtration Rate 28 ML/MIN Hemoglobin A1c 5.1 % Free Thyroxine 1.04 NG/DL Thyroid Stimulating Hormone 3rd Gen 2.370 uIU/ML Test 07/04/17 07:20 07/05/17 07:54 Blood Gas Puncture Site LT RADIAL Blood Gas Patient Temperature 98.6 Blood Gas HCO3 22 mmol/L Blood Gas Base Excess -3.5 mmol/L Blood Gas Oxygen Saturation 90 % Arterial Blood pH 7.32 Arterial Blood Partial Pressure CO2 44 mmHg Arterial Blood Partial Pressure O2 70 mmHg Arterial Blood Oxygen Content 14.9 Vol % Arterial Blood Carboxyhemoglobin 1.2 % Arterial Blood Methemoglobin 1.0 % Blood Gas Hemoglobin 11.7 G/DL Blood Gas Liter Flow 3 L/M White Blood Count 9.3 TH/MM3 Red Blood Count 4.50 MIL/MM3 Hemoglobin 13.0 GM/DL Hematocrit 38.7 % Mean Corpuscular Volume 85.9 FL Mean Corpuscular Hemoglobin 28.9 PG Mean Corpuscular Hemoglobin Concent 33.7 % Red Cell Distribution Width 14.5 % Platelet Count 275 TH/MM3 Mean Platelet Volume 8.3 FL Neutrophils (%) (Auto) 66.9 % Lymphocytes (%) (Auto) 21.2 % Monocytes (%) (Auto) 8.7 % Eosinophils (%) (Auto) 2.2 % Basophils (%) (Auto) 1.0 % Neutrophils # (Auto) 6.2 TH/MM3 Lymphocytes # (Auto) 2.0 TH/MM3 Monocytes # (Auto) 0.8 TH/MM3 Eosinophils # (Auto) 0.2 TH/MM3 Basophils # (Auto) 0.1 TH/MM3 CBC Comment DIFF FINAL Differential Comment Prothrombin Time 10.7 SEC Prothromb Time International Ratio 1.1 RATIO Blood Urea Nitrogen 31 MG/DL Creatinine 2.41 MG/DL Random Glucose 88 MG/DL Total Protein 8.1 GM/DL Albumin 3.1 GM/DL Calcium Level 8.9 MG/DL Phosphorus Level 3.0 MG/DL Magnesium Level 2.0 MG/DL Alkaline Phosphatase 161 U/L Aspartate Amino Transf (AST/SGOT) 65 U/L Alanine Aminotransferase (ALT/SGPT) 83 U/L Total Bilirubin 0.7 MG/DL Sodium Level 137 MEQ/L Potassium Level 4.0 MEQ/L Chloride Level 108 MEQ/L Carbon Dioxide Level 23.7 MEQ/L Anion Gap 5 MEQ/L Estimat Glomerular Filtration Rate 28 ML/MIN Imaging Last Impressions Chest X-Ray 07/04/17 0000 Signed Impressions: Service Date/Time: Tuesday, July 04, 2017 06:10 - CONCLUSION: New bilateral interstitial lung opacity with lower lobe predominance suggesting pulmonary edema. Mild cardiac silhouette enlargement unchanged. Greg Muro MD Chest CT 07/02/17 0000 Signed Impressions: Service Date/Time: Sunday, July 02, 2017 23:23 - CONCLUSION: 1. Mild patchy atelectasis and scarring in the lungs. No pulmonary nodules or masses identified. 2. Borderline enlarged pretracheal and precarinal lymph nodes. 3. Small bilateral pleural effusions. Greg Muro MD Neck CT 07/01/17 0000 Signed Impressions: Service Date/Time: June 20:52 - CONCLUSION: 1. There is a least a 2.5 cm mass in the posterior right lingual region with probable metastatic adenopathy in the upper right cervical region measuring up to 2.9 cm in diameter. 2. Chronic right maxillary sinus disease with thinning or erosion of the anterior and posterior patiño of the right maxillary sinus and complete sinus opacification. 3. Extensive dental caries with small periapical abscesses in the mandible. Neel Lal MD Objective Remarks GENERAL: Awake alert and oriented 3 talkative and cooperative SKIN: Warm and dry. HEAD: Atraumatic. Normocephalic. EYES: Pupils equal and round. No scleral icterus. No injection or drainage. Extraocular muscles intact ENT: No nasal bleeding or discharge. Mucous membranes pink and moist. Tongue is midline NECK: Trachea midline. No JVD. Supple right-sided lymphadenopathy CARDIOVASCULAR: Regular rate and rhythm. S1-S2 no S3-S4 RESPIRATORY: No accessory muscle use. Clear to auscultation. Breath sounds equal bilaterally. GASTROINTESTINAL: Abdomen soft, non-tender, nondistended. Hepatic and splenic margins not palpable. MUSCULOSKELETAL: Extremities without clubbing, cyanosis, or edema. No obvious deformities. NEUROLOGICAL: Awake and alert. No obvious cranial nerve deficits. Motor grossly within normal limits. Five out of 5 muscle strength in the arms and legs. Normal speech. PSYCHIATRIC: Appropriate mood and affect; insight and judgment normal. Medications and IVs Current Medications Aspirin (Aspirin Chew) 324 mg ONCE ONCE PO Last administered on 07/01/17 19:45 ; Start 07/01/17 at 19:15; Stop 07/01/17 at 19:16; Status DC Sodium Chloride (NS Flush) 2 ml UNSCH PRN IVF FLUSH AFTER USING IV ACCESS; Start 07/01/17 at 19:15; Stop 07/01/17 at 22:52; Status DC Sodium Chloride 1,000 ml @ 125 mls/hr Q8H IV Last administered on 07/01/17at 23: 28; Start 07/01/17 at 20:29; Stop 07/02/17 at 04:28; Status DC Morphine Sulfate (Morphine Inj) 4 mg ONCE ONCE IV PUSH Last administered on 07/01/17at 23:27; Start 07/01/17 at 21:45; Stop 07/01/17 at 21:46; Status DC Sodium Chloride 1,000 ml @ 100 mls/hr Q10H IV Last administered on 07/04/17at 01 :04; Start 07/01/17 at 23:00; Status Future Hold Sodium Chloride (NS Flush) 2 ml BID IV FLUSH Last administered on 07/05/17at 08: 49; Start 07/02/17 at 09:00 Sodium Chloride (NS Flush) 2 ml UNSCH PRN IV FLUSH FLUSH AFTER USING IV ACCESS ; Start 07/01/17 at 22:30 Nitroglycerin (Nitrostat Sl) 0.4 mg Q5M PRN SL ANGINA; Start 07/01/17 at 22:30; Stop 07/03/17 at 08:40; Status DC Acetaminophen (Tylenol) 500 mg Q4H PRN PO HEADACHE; Start 07/01/17 at 22:30 Acetaminophen/ Hydrocodone Bitart ([place] 7.5-325 Mg) 1 tab Q4H PRN PO PAIN SCALE 1 TO 5 Last administered on 07/02/17at 12:35; Start 07/01/17 at 22:30; Stop 07/03/17 at 11:32; Status DC Morphine Sulfate (Morphine Inj) 2 mg Q3H PRN IV PUSH PAIN SCALE 6 TO 10 Last administered on 4/7/18at 09:19; Start 07/01/17 at 23:00; Stop 07/03/17 at 11:32; Status DC Heparin Sodium (Porcine) (Heparin Inj) 5,000 units Q8H SQ Last administered on 07/02/17at 14:41; Start 07/01/17 at 22:30; Stop 07/02/17 at 18:11; Status DC Amlodipine Besylate (Norvasc) 10 mg DAILY PO Last administered on 07/05/17at 08: 46; Start 07/02/17 at 09:00 Morphine Sulfate (Morphine Inj) 4 mg ONCE ONCE IV PUSH ; Start 07/01/17 at 23:00 ; Stop 07/01/17 at 23:01; Status DC Hydralazine HCl (Apresoline Inj) 10 mg ONCE ONCE IV PUSH Last administered on 07/02/17at 00:39; Start 07/02/17 at 00:15; Stop 07/02/17 at 00:16; Status DC Clonidine (Catapres) 0.1 mg Q6H PRN PO SBP>160, DBP>90 Last administered on 07/04at 03:44; Start 07/02/17 at 00:15; Stop 07/04/17 at 11:20; Status DC Hydralazine HCl (Apresoline Inj) 20 mg ONCE ONCE IV PUSH Last administered on 07/02/17 04:25; Start 07/02/17 at 04:15; Stop 07/02/17 at 04:17; Status DC Aspirin (Ecotrin Ec) 325 mg DAILY PO Last administered on 07/04/17at 07:58; Start 07/03/17 at 09:00 Nitroglycerin (Nitrostat Sl) 0.4 mg Q5M PRN SL CHEST PAIN; Start 07/02/17 at 18: 15 Metoprolol Tartrate (Lopressor) 12.5 mg BID PO Last administered on 07/05/17at 08 :47; Start 07/02/17 at 21:00 Atorvastatin Calcium (Lipitor) 10 mg HS PO Last administered on 07/04/17at 19:54 ; Start 07/02/17 at 21:00 Heparin Sodium/ Dextrose 250 ml @ 0 mls/hr TITRATE PRN IV Coagulation Management; Start 07/02/17 at 18:15; Status UNV Heparin Sodium/ Dextrose 250 ml @ 8 mls/hr TITRATE PRN IV Coagulation Management Last administered on 07/02/17at 20:37; Start 07/02/17 at 18:45; Stop 07/03/17 at 08:30; Status DC Enalaprilat (Vasotec Inj) 1.25 mg Q6H PRN IV PUSH bp>160/90 Last administered on 07/05/17at 03:17; Start 07/02/17 at 19:15 Lisinopril (Prinivil) 10 mg DAILY PO Last administered on 07/05/17at 08:48; Start 07/03/17 at 09:00 Isosorbide Mononitrate (Imdur) 30 mg DAILY@07 PO Last administered on 07/05/17at 06:22; Start 07/03/17 at 09:00 Acetaminophen (Tylenol) 650 mg Q4H PRN PO TEMP > 100.4; Start 07/03/17 at 11:15 Ondansetron HCl (Zofran Inj) 4 mg Q6H PRN IVP NAUSEA OR VOMITING Last administered on 07/03/17at 20:06; Start 07/03/17 at 11:15 Metoclopramide HCl (Reglan Inj) 5 mg Q6H PRN IV PUSH NAUSEA OR VOMITING; Start 07/03/17 at 11:15 Zolpidem Tartrate (Ambien) 5 mg HS PRN PO INSOMNIA; Start 07/03/17 at 11:15 Acetaminophen (Tylenol) 650 mg Q6H PRN PO PAIN SCALE 1 TO 2; Start 07/03/17 at 11:15 Oxycodone/ Acetaminophen (Percocet 5-325 Mg) 1 tab Q6H PRN PO PAIN SCALE 3 TO 5; Start 07/03/17 at 11:15 Oxycodone/ Acetaminophen (Percocet 10-325 Mg) 1 tab Q6H PRN PO PAIN SCALE 6 TO 10 Last administered on 07/05/17at 03:14; Start 07/03/17 at 11:15 Morphine Sulfate (Morphine Inj) 2 mg Q3H PRN IV PUSH Pain 3-5; if PO NOT WORKING Last administered on 07/04/17at 03:36; Start 07/03/17 at 11:15 Morphine Sulfate (Morphine Inj) 4 mg Q3H PRN IV PUSH Pain 6-10;if PO NOT WORKING Last administered on 07/05/17at 08:48; Start 07/03/17 at 11:15 Morphine Sulfate (Morphine Inj) 4 mg Q3H PRN IV PUSH BREAKTHROUGH PAIN Last administered on 07/05/17at 04:50; Start 07/03/17 at 11:15 Naloxone HCl (Narcan Inj) 0.4 mg UNSCH PRN IV PUSH SEE LABEL COMMENTS; Start at 11:15 Senna/Docusate Sodium ([place]-Colace) 1 tab BID PO Last administered on 07/05/17at 08:48; Start 07/03/17 at 21:00 Magnesium Hydroxide (Milk Of Magnesia Liq) 30 ml Q12H PRN PO Mild constipation ; Start 07/03/17 at 11:15 Sennosides (Senokot) 17.2 mg Q12H PRN PO Moderate constipation; Start 07/03/17 at 11:15 Bisacodyl (Dulcolax Supp) 10 mg DAILY PRN RECTAL SEVERE CONSITIPATION; Start at 11:15 Lactulose (Lactulose Liq) 30 ml DAILY PRN PO SEVERE CONSITIPATION; Start at 11:15 Lorazepam (Ativan Inj) 0.5 mg ONCE ONCE IV PUSH Last administered on 07/04/17at 06:18; Start 07/04/17 at 06:15; Stop 07/04/17 at 06:16; Status DC Albuterol/ Ipratropium (Duoneb Neb) 1 ampule ONCE ONCE NEB Last administered on 07/04/17at 06:44; Start 07/04/17 at 06:15; Stop 07/04/17 at 06:16; Status DC Albuterol/ Ipratropium (Duoneb Neb) 1 ampule Q4HR NEB PRN NEB sob/wheezing; Start 07/04/17 at 06:15 Furosemide (Lasix Inj) 40 mg ONCE ONCE IV PUSH Last administered on 07/04/17at 06:49; Start 07/04/17 at 06:45; Stop 07/04/17 at 06:46; Status DC Hydralazine HCl (Apresoline) 50 mg Q8HR PO Last administered on 07/05/17at 04:50 ; Start 07/04/17 at 14:00 Clonidine (Catapres) 0.1 mg Q4H PRN PO SBP>160, DBP>90 Last administered on 07/05at 01:15; Start 07/04/17 at 11:00 Nicotine (Habitrol 14 Mg Patch.24 Hr) 1 patch ONCE ONCE T-DERMAL Last administered on 07/04/17at 15:00; Start 07/04/17 at 12:00; Stop 07/04/17 at 12:05; Status DC Nicotine (Habitrol 14 Mg Patch.24 Hr) 1 patch DAILY T-DERMAL ; Start 07/05/17 at 09:00 Miscellaneous Information 1 DAILY T-DERMAL ; Start 07/05/17 at 09:00 A/P Assessment and Plan 62 years old male veterans with history of prostate cancer presented with chest pain and right neck mass Chest pain atypical rule out ACS 2.5 cm adenopathy submandibular showed on CT of the neck Elevated troponin Uncontrolled hypertension ADD HYDRALAZINE- ON DILMA, BETA, AMLODIPINE,PRN CATAPRES ADD HYDRALAZINE History of coronary artery disease patient had stress test 10 years ago which was negative Chronic kidney disease with creatinine baseline around 2 History of prostate cancer in remission 10 years ago History of PTSD History of hep C DVT prophylaxis will be on heparin drip Plan: Admit to inpatient with telemetry 3 sets of cardiac enzymes [id number] Morphine, sublingual nitroglycerin, Start heparin drip, consult cardiology, EKG reviewed personally by me showing sinus rhythm with left atrial hypertrophy, which can explain the extra heart sounds revealed on exam, RBBB with possible anteroseptal ischemia- NO INTERVENTIONS PER CARDIOLOGY Consult oncology for neck lymph node, discussed with Dr. Pena and he showed me on the CT scan possible basal lung mass which can be contributed, recommended ENT consult - WILL CONSULT IR FOR LYMPH NODE BIOPSY Continue amlodipine and lisinopril from med rec, creatinine seems to be around his baseline so we will continue DILMA inhibitor, Vasotec as needed Interventional radiology for right lymph node biopsies Consult radiation oncology Consult palliative care Consult oral surgery for teeth extraction Consult interventional radiology for PEG tube placed Discharge Planning Pending oncology clearance Corey Mann DO Jul 05, 2017 10:52
[2017-07-05] MEDS ORDERED: LIDOCAINE HCL 1% PF 30 ML VIAL ONE (14:48)
--- NOTE | 2017-07-05 15:48 | RADRPT ---
EXAM DATE/TIME: 07/05/2017 13:30 [facility] COMPARISON: No previous studies available for comparison. INDICATIONS : Right neck mass. MEDICAL HISTORY : PTSD. Hepatitis C. CKD. CAD. Prostate cancer. SURGICAL HISTORY : Left shoulder surgery. ENCOUNTER: Initial ACUITY: 2 weeks PAIN SCORE: 5/10 LOCATION: Right neck. ORGAN: Right lymph node SPECIMENS: One core specimen(s) submitted for pathologic evaluation. DEVICE: 18 gauge needle Post procedure scanning reveals no hematoma or other complication. The possibility does exist that the tissue obtained will be non-diagnostic. If the sample is non-govind gnostic a repeat biopsy or surgical biopsy may need to be performed. TECHNIQUE: 1. Ultrasound guidance for needle biopsy. 2. Needle biopsy. The risks, benefits and alternatives to the procedure were explained and verbal and written consent w as obtained. The site was prepped in sterile fashion. Full sterile technique was used, including ca p, mask, sterile gloves and gown and a large sterile sheet. Hand hygiene and 2% chlorhexidine and/or betadine/alcohol prep was utilized per protocol for cutaneous antisepsis. The skin and subcutaneous tissues were infiltrated with local anesthetic solution. Sterile gel and sterile probe cover were u tilized for ultrasound guidance. With the patient on the ultrasound table, images were obtained. A needle was advanced into the identified target and the number of specimens as above obtained and mathis bmitted for pathologic evaluation. The patient tolerated the procedure well and left the ultrasound suite in stable condition. CONCLUSION: Uncomplicated ultrasound guided needle biopsy right periparotid lymph node.. Corey Hays MD FACR on July 05, 2017 at 15:45 Board Certified Radiologist. This report was verified electronically.
[2017-07-05] MEDS: ATORVASTATIN 10 MG TAB PO SCH (22:33)
[2017-07-06] VITALS (13 sets, daily range): BP systolic 152–180; BP diastolic 84–114; PULSE 50–75; RESP 16–20; TEMP 97.5–98.3; O2SAT 94–99
[2017-07-06] MEDS: ENALAPRILAT 1.25 MG/ML VIAL IV PUSH PRN (00:51)
[2017-07-06] MEDS: MORPHINE SULFATE 4 MG/ML INJ IV PUSH PRN ×7 (01:04→23:32)
[2017-07-06] MEDS: ISOSORBIDE MONONITRATE 30 MG CR TAB (IMDUR) PO SCH (07:08)
[2017-07-06] MEDS: hydrALAZINE HCL 50 MG TAB PO SCH ×3 (07:08→20:37)
[2017-07-06] MEDS: NICOTINE 14 MG/24 HR PATCH T-DERMAL SCH (09:00)
[2017-07-06] MEDS: REMOVE OLD PATCH T-DERMAL SCH (09:00)
[2017-07-06] MEDS: ASPIRIN EC 325 MG TABEC PO SCH (09:00)
[2017-07-06] MEDS: LISINOPRIL 10 MG TAB PO SCH (09:29)
[2017-07-06] MEDS: METOPROLOL TARTRATE 25 MG TAB PO SCH ×2 (09:30→20:37)
[2017-07-06] MEDS: DOCUSATE SODIUM 50 MG/SENNA 8.6 MG TAB PO SCH ×2 (09:30→20:36)
[2017-07-06] MEDS: SODIUM CHLORIDE 0.9% FLUSH 10 ML FLUSH IV FLUSH SCH ×2 (09:31→20:38)
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
[2017-07-06] MEDS ORDERED: cloNIDine HCL 0.1 MG TAB PO PRN (15:00)
[2017-07-06] MEDS: ATORVASTATIN 10 MG TAB PO SCH (20:36)
[2017-07-07] VITALS (11 sets, daily range): BP systolic 153–170; BP diastolic 84–90; PULSE 50–62; RESP 18–20; TEMP 97.5–97.8; O2SAT 95–98
[2017-07-07] MEDS: MORPHINE SULFATE 4 MG/ML INJ IV PUSH PRN ×3 (02:23→09:23)
[2017-07-07] MEDS: ISOSORBIDE MONONITRATE 30 MG CR TAB (IMDUR) PO SCH (05:23)
[2017-07-07] MEDS: hydrALAZINE HCL 50 MG TAB PO SCH ×2 (05:23→12:23)
[2017-07-07 08:00] LABS: AUTOMATED NEUTROPHIL # 5.9 TH/MM3 (1.8-7.7); BASOPHIL # 0.1 TH/MM3 (0-0.2); BASOPHIL % 0.6 % (0.0-2.0); EOSINOPHIL # 0.2 TH/MM3 (0-0.4); EOSINOPHIL % 2.7 % (0.0-4.0); HEMOGLOBIN 13.2 GM/DL (13.0-17.0); LYMPH % 15.9 % (9.0-44.0); LYMPHOCYTE # 1.3 TH/MM3 (1.0-4.8); MEAN CELL VOLUME 86.6 FL (80.0-100.0); MEAN CORPUSCULAR HEMOGLOBIN 29.4 PG (27.0-34.0); MEAN CORPUSCULAR HGB CONC 33.9 % (32.0-36.0); MEAN PLATELET VOLUME 8.4 FL (7.0-11.0); MONO % 8.9 % (0.0-8.0); MONOCYTE # 0.7 TH/MM3 (0-0.9); NEUT % 71.9 % (16.0-70.0); PLATELET COUNT 265 TH/MM3 (150-450); RED CELL DISTRIBUTION WIDTH 14.6 % (11.6-17.2); WHITE BLOOD COUNT 8.2 TH/MM3 (4.0-11.0)
[2017-07-07 08:24] LABS: ALT (GPT) 73 U/L (12-78); AST (GOT) 57 U/L (15-37); BICARBONATE 23.3 MEQ/L (21.0-32.0); BLOOD UREA NITROGEN 35 MG/DL (7-18); CALCIUM 8.9 MG/DL (8.5-10.1); CHLORIDE 108 MEQ/L (98-107); CREATININE 2.33 MG/DL (0.60-1.30); GLOMERULAR FILTRATION RATE 29 ML/MIN (>89); GLUCOSE,RANDOM 113 MG/DL (74-106); MAGNESIUM 2.2 MG/DL (1.5-2.5); SODIUM (NA) 139 MEQ/L (136-145)
[2017-07-07 08:27] LABS: ALKALINE PHOSPHATASE 158 U/L (45-117); PHOSPHORUS 3.5 MG/DL (2.5-4.9); TOTAL BILIRUBIN ADULT 0.3 MG/DL (0.2-1.0); TOTAL PROTEIN 7.8 GM/DL (6.4-8.2)
[2017-07-07] MEDS: REMOVE OLD PATCH T-DERMAL SCH (09:00)
[2017-07-07] MEDS: NICOTINE 14 MG/24 HR PATCH T-DERMAL SCH (09:00)
[2017-07-07] MEDS: LISINOPRIL 10 MG TAB PO SCH (09:20)
[2017-07-07] MEDS: METOPROLOL TARTRATE 25 MG TAB PO SCH (09:21)
[2017-07-07] MEDS: DOCUSATE SODIUM 50 MG/SENNA 8.6 MG TAB PO SCH (09:21)
[2017-07-07] MEDS: SODIUM CHLORIDE 0.9% FLUSH 10 ML FLUSH IV FLUSH SCH (09:22)
[2017-07-07] MEDS: ASPIRIN EC 325 MG TABEC PO SCH (09:22)
--- NOTE | 2017-07-07 09:22 | PD.ONC.PN ---
Subjective Subjective Remarks Afebrile overnight. patient resting in bed. wants to go home and get started on treatment as soon as possible. waiting for PEG tube placement. Objective Data Date Time Temp Pulse Resp B/P (MAP) Pulse Ox O2 Delivery O2 Flow Rate FiO2 07/07/17 08:41 97.7 51 18 153/87 (109) 98 07/07/17 06:00 58 07/07/17 05:28 18 07/07/17 05:21 97.5 55 20 164/90 (114) 95 07/07/17 05:00 50 07/07/17 03:52 54 07/07/17 03:00 56 07/07/17 02:00 50 07/07/17 01:00 62 07/07/17 00:14 55 07/06/17 23:27 98.3 55 20 173/98 (123) 98 07/06/17 23:00 62 07/06/17 22:00 66 07/06/17 21:00 52 07/06/17 20:27 97.7 60 16 180/114 (136) 97 07/06/17 20:27 Room Air 07/06/17 20:07 99 21 07/06/17 20:07 75 07/06/17 18:04 60 171/95 (120) 97 07/06/17 16:05 97.5 54 16 168/104 (125) 97 07/06/17 12:12 97.7 50 16 152/84 (106) 97 07/07/17 07/07/17 07/07/17 07:00 15:00 23:00 Intake Total 480 ml Balance 480 ml Result Diagram: 07/07/1765707/07/1758 Laboratory Results Laboratory Tests Test 07/07/17 06:58 White Blood Count 8.2 TH/MM3 Red Blood Count 4.50 MIL/MM3 Hemoglobin 13.2 GM/DL Hematocrit 39.0 % Mean Corpuscular Volume 86.6 FL Mean Corpuscular Hemoglobin 29.4 PG Mean Corpuscular Hemoglobin Concent 33.9 % Red Cell Distribution Width 14.6 % Platelet Count 265 TH/MM3 Mean Platelet Volume 8.4 FL Neutrophils (%) (Auto) 71.9 % Lymphocytes (%) (Auto) 15.9 % Monocytes (%) (Auto) 8.9 % Eosinophils (%) (Auto) 2.7 % Basophils (%) (Auto) 0.6 % Neutrophils # (Auto) 5.9 TH/MM3 Lymphocytes # (Auto) 1.3 TH/MM3 Monocytes # (Auto) 0.7 TH/MM3 Eosinophils # (Auto) 0.2 TH/MM3 Basophils # (Auto) 0.1 TH/MM3 CBC Comment DIFF FINAL Differential Comment Blood Urea Nitrogen 35 MG/DL Creatinine 2.33 MG/DL Random Glucose 113 MG/DL Total Protein 7.8 GM/DL Albumin 3.0 GM/DL Calcium Level 8.9 MG/DL Phosphorus Level 3.5 MG/DL Magnesium Level 2.2 MG/DL Alkaline Phosphatase 158 U/L Aspartate Amino Transf (AST/SGOT) 57 U/L Alanine Aminotransferase (ALT/SGPT) 73 U/L Total Bilirubin 0.3 MG/DL Sodium Level 139 MEQ/L Potassium Level 4.1 MEQ/L Chloride Level 108 MEQ/L Carbon Dioxide Level 23.3 MEQ/L Anion Gap 8 MEQ/L Estimat Glomerular Filtration Rate 29 ML/MIN Administered Medications Medications (Trade) Dose Ordered Sig/James Route PRN Reason Start Time Stop Time Status Last Admin Dose Admin Sodium Chloride 1,000 ml @ 100 mls/hr Q10H IV 07/01/17 23:00 Future Hold 07/04/17 01:04 Sodium Chloride (NS Flush) 2 ml BID IV FLUSH 07/02/17 09:00 07/06/17 20:38 Amlodipine Besylate (Norvasc) 10 mg DAILY PO 07/02/17 09:00 07/06/17 09:29 Aspirin (Ecotrin Ec) 325 mg DAILY PO 07/03/17 09:00 07/06/17 09:00 Metoprolol Tartrate (Lopressor) 12.5 mg BID PO 07/02/17 21:00 07/06/17 20:37 Atorvastatin Calcium (Lipitor) 10 mg HS PO 07/02/17 21:00 07/06/17 20:36 Enalaprilat (Vasotec Inj) 1.25 mg Q6H PRN IV PUSH bp>160/90 07/02/17 19:15 07/06/17 00:51 Lisinopril (Prinivil) 10 mg DAILY PO 07/03/17 09:00 07/06/17 09:29 Isosorbide Mononitrate (Imdur) 30 mg DAILY@07 PO 07/03/17 09:00 07/07/17 05:23 Ondansetron HCl (Zofran Inj) 4 mg Q6H PRN IVP NAUSEA OR VOMITING 07/03/17 11:15 07/03/17 20:06 Oxycodone/ Acetaminophen (Percocet 10-325 Mg) 1 tab Q6H PRN PO PAIN SCALE 6 TO 10 07/03/17 11:15 07/05/17 03:14 Morphine Sulfate (Morphine Inj) 2 mg Q3H PRN IV PUSH Pain 3-5; if PO NOT WORKING 07/03/17 11:15 07/04/17 03:36 Morphine Sulfate (Morphine Inj) 4 mg Q3H PRN IV PUSH Pain 6-10;if PO NOT WORKING 07/03/17 11:15 07/07/17 05:23 Morphine Sulfate (Morphine Inj) 4 mg Q3H PRN IV PUSH BREAKTHROUGH PAIN 07/03/17 11:15 07/05/17 04:50 Senna/Docusate Sodium (Mary Lou-Colace) 1 tab BID PO 07/03/17 21:00 07/06/17 20:36 Clonidine (Catapres) 0.2 mg Q4H PRN PO SBP>160, DBP>90 07/06/17 15:00 07/06/17 23:31 Hydralazine HCl (Apresoline) 100 mg Q8HR PO 07/06/17 14:00 07/07/17 05:23 Objective Remarks GENERAL: Middle aged male, sitting up in bed in [facility]. SKIN: Warm and dry. HEAD: Normocephalic. EYES: No scleral icterus. No injection or drainage. NECK: Supple, trachea midline. right neck with bandage in place, c/d/i. CARDIOVASCULAR: Regular rate and rhythm RESPIRATORY: Breath sounds equal bilaterally. No accessory muscle use. GASTROINTESTINAL: Abdomen soft, non-tender, nondistended. EXTREMITIES: No cyanosis, or edema. NEUROLOGICAL: no obvious focal deficit. Assessment/Plan Assessment 62y/o male with suspected head and neck cancer, admitted with right neck mass, now s/p biopsy, awaiting pathology. History (from initial consult): Mr. Beard is a 62-year-old male with a significant history of tobaccoism who presents to the hospital with complaints of a mass along the right side of the neck, which has been enlarging over the past 1 month. He denies symptoms of difficulty swallowing or soreness in the throat. 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 On imaging studies, he was noted to have a mass along the right base of the tongue/hypopharyngeal area associated with pathologically enlarged right-sided upper cervical lymphadenopathy. Additionally, he was noted to have renal insufficiency with a creatinine of 2.8 at the time of presentation with an EGFR in the low 20s. The patient's renal failure appears to be acute on chronic. 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 CT thorax shows no definite evidence of metastatic disease to mediastinal lymph nodes or to the lung parenchyma. will still need an outpatient PET CT scan for staging. Plan 1. PEG tube placement today 2. face sheet faxed to new patient referrals for follow up next week 3. once PEG tube placed patient clear for discharge home. Candelaria Perez Jul 07, 2017 09:22
--- NOTE | 2017-07-07 11:20 | HHI.PR ---
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 Patient presented to the hospital complaining of almost few days of chest pain comes and goes no diaphoresis in the center of the chest no cough no fever or chills. No exacerbating or alleviating factor, patient also have right sided neck mass under his jaw that he noticed a few weeks ago it is about 2 cm rubbery, patient is concerned about having lymphoma or infection he denied drug abuse. Patient mentioned he has breast prostate cancer 10 years ago which has been treated with surgery and in remission, patient had physical injury that caused him to lose the right side and he has a metal reconstruction facial surgery in the past, history of hep C, COPD, history of PTSD 4-7 PATIENT SEEN BY ENT AND ONCOLOGY TO HAVE BIOPSY OF RIGHT NECK TOMORROW NPO AFTERMIDNIGHT L[facility] RN AND PT AND CASE MANAGEMENT PAIN CONTROL 4-8 WILL CONSULT IR FOR BIOPSY OF RIGHT SIDE LYMPH NODE L[facility] RN AND PT AND CM HAD ATIVAN LAST NIGHT BECAME CONFUSED NO MORE ATIVAN EVER 4-9 patient is scheduled to have biopsy of right side of neck/lymph node Discussed with patient and RN and case management Oncology has consulted interventional radiology for PEG as well as for dentistry for tooth removal has also been consulted by radiation 4-10 patient had the lymph node biopsy on the right side of his neck yesterday July 05 Await pathology Has been seen by dentistry they recommend that he start radiation and his teeth can be extracted later Patient has a 8-year-old child that is staying with his boss at this time--this will probably make his treatment more difficult States he is taking some pain medications for the right-sided neck pain Await pathology Discussed with RN and patient and case management Blood pressure still not at goal increase hydralazine AM LABS - LELO RN AND PT AND CM TO GET PEG WITH IR TODAY DC TO HOME TODAY AFTER PROCEDURE FOLLOW UP WITH [facility] FOLLOW UP WITH ONCOLOGY AND RADIATION DC LATER TODAY IF STABLE AFTER PEG PLACEMENT Objective Vitals Vital Signs Date Time Temp Pulse Resp B/P (MAP) Pulse Ox O2 Delivery O2 Flow Rate FiO2 07/07/17 08:41 97.7 51 18 153/87 (109) 98 07/07/17 06:00 58 4/11/18 05:28 18 07/07/17 05:21 97.5 55 20 164/90 (114) 95 07/07/17 05:00 50 07/07/17 03:52 54 07/07/17 03:00 56 07/07/17 02:00 50 07/07/17 01:00 62 07/07/17 00:14 55 07/06/17 23:27 98.3 55 20 173/98 (123) 98 07/06/17 23:00 62 07/06/17 22:00 66 07/06/17 21:00 52 07/06/17 20:27 97.7 60 16 180/114 (136) 97 07/06/17 20:27 Room Air 07/06/17 20:07 99 21 07/06/17 20:07 75 07/06/17 18:04 60 171/95 (120) 97 07/06/17 16:05 97.5 54 16 168/104 (125) 97 07/06/17 12:12 97.7 50 16 152/84 (106) 97 I/O 07/06/17 07/06/17 07/06/17 07/07/17 07/07/17 07/07/17 07:00 15:00 23:00 07:00 15:00 23:00 Intake Total 240 ml 480 ml Balance 240 ml 480 ml Intake Oral 240 ml 480 ml # Voids 3 Result Diagram: 07/07/1765707/07/17657 Other Results Laboratory Tests Test 07/05/17 07:54 07/05/17 11:30 07/07/17 06:58 White Blood Count 9.3 TH/MM3 8.2 TH/MM3 Red Blood Count 4.50 MIL/MM3 4.50 MIL/MM3 Hemoglobin 13.0 GM/DL 13.2 GM/DL Hematocrit 38.7 % 39.0 % Mean Corpuscular Volume 85.9 FL 86.6 FL Mean Corpuscular Hemoglobin 28.9 PG 29.4 PG Mean Corpuscular Hemoglobin Concent 33.7 % 33.9 % Red Cell Distribution Width 14.5 % 14.6 % Platelet Count 275 TH/MM3 265 TH/MM3 Mean Platelet Volume 8.3 FL 8.4 FL Neutrophils (%) (Auto) 66.9 % 71.9 % Lymphocytes (%) (Auto) 21.2 % 15.9 % Monocytes (%) (Auto) 8.7 % 8.9 % Eosinophils (%) (Auto) 2.2 % 2.7 % Basophils (%) (Auto) 1.0 % 0.6 % Neutrophils # (Auto) 6.2 TH/MM3 5.9 TH/MM3 Lymphocytes # (Auto) 2.0 TH/MM3 1.3 TH/MM3 Monocytes # (Auto) 0.8 TH/MM3 0.7 TH/MM3 Eosinophils # (Auto) 0.2 TH/MM3 0.2 TH/MM3 Basophils # (Auto) 0.1 TH/MM3 0.1 TH/MM3 CBC Comment DIFF FINAL DIFF FINAL Differential Comment Prothrombin Time 10.7 SEC Prothromb Time International Ratio 1.1 RATIO Blood Urea Nitrogen 31 MG/DL 35 MG/DL Creatinine 2.41 MG/DL 2.33 MG/DL Random Glucose 88 MG/DL 113 MG/DL Total Protein 8.1 GM/DL 7.8 GM/DL Albumin 3.1 GM/DL 3.0 GM/DL Calcium Level 8.9 MG/DL 8.9 MG/DL Phosphorus Level 3.0 MG/DL 3.5 MG/DL Magnesium Level 2.0 MG/DL 2.2 MG/DL Alkaline Phosphatase 161 U/L 158 U/L Aspartate Amino Transf (AST/SGOT) 65 U/L 57 U/L Alanine Aminotransferase (ALT/SGPT) 83 U/L 73 U/L Total Bilirubin 0.7 MG/DL 0.3 MG/DL Sodium Level 137 MEQ/L 139 MEQ/L Potassium Level 4.0 MEQ/L 4.1 MEQ/L Chloride Level 108 MEQ/L 108 MEQ/L Carbon Dioxide Level 23.7 MEQ/L 23.3 MEQ/L Anion Gap 5 MEQ/L 8 MEQ/L Estimat Glomerular Filtration Rate 28 ML/MIN 29 ML/MIN Hepatitis A IgM Antibody NONREACTIVE Hepatitis B Surface Antigen NONREACTIVE Hepatitis B Core IgM Antibody NONREACTIVE Hepatitis C IgG Antibody REACTIVE Imaging Last Impressions Lymph Node Biopsy Ultrasound 07/05/17 0000 Signed Impressions: Service Date/Time: Wednesday, July 05, 2017 13:30 - CONCLUSION: Uncomplicated ultrasound guided needle biopsy right periparotid lymph node.. Corey Hays MD FACR Chest X-Ray 07/04/17 0000 Signed Impressions: Service Date/Time: Tuesday, July 04, 2017 06:10 - CONCLUSION: New bilateral interstitial lung opacity with lower lobe predominance suggesting pulmonary edema. Mild cardiac silhouette enlargement unchanged. Greg Muro MD Chest CT 07/02/17 0000 Signed Impressions: Service Date/Time: Sunday, July 02, 2017 23:23 - CONCLUSION: 1. Mild patchy atelectasis and scarring in the lungs. No pulmonary nodules or masses identified. 2. Borderline enlarged pretracheal and precarinal lymph nodes. 3. Small bilateral pleural effusions. Greg Muro MD Neck CT 07/01/17 0000 Signed Impressions: Service Date/Time: June 20:52 - CONCLUSION: 1. There is a least a 2.5 cm mass in the posterior right lingual region with probable metastatic adenopathy in the upper right cervical region measuring up to 2.9 cm in diameter. 2. Chronic right maxillary sinus disease with thinning or erosion of the anterior and posterior patiño of the right maxillary sinus and complete sinus opacification. 3. Extensive dental caries with small periapical abscesses in the mandible. Neel Lal MD Objective Remarks GENERAL: Awake alert and oriented 3 talkative and cooperative SKIN: Warm and dry. HEAD: Atraumatic. Normocephalic. EYES: Pupils equal and round. No scleral icterus. No injection or drainage. Extraocular muscles intact ENT: No nasal bleeding or discharge. Mucous membranes pink and moist. Tongue is midline NECK: Trachea midline. No JVD. Supple right-sided lymphadenopathy CARDIOVASCULAR: Regular rate and rhythm. S1-S2 no S3-S4 RESPIRATORY: No accessory muscle use. Clear to auscultation. Breath sounds equal bilaterally. GASTROINTESTINAL: Abdomen soft, non-tender, nondistended. Hepatic and splenic margins not palpable. MUSCULOSKELETAL: Extremities without clubbing, cyanosis, or edema. No obvious deformities. NEUROLOGICAL: Awake and alert. No obvious cranial nerve deficits. Motor grossly within normal limits. Five out of 5 muscle strength in the arms and legs. Normal speech. PSYCHIATRIC: Appropriate mood and affect; insight and judgment normal. Procedures Right side of neck biopsy by interventional radiology PEG TUBE LATER TODAY- 07-07 Medications and IVs Current Medications Aspirin (Aspirin Chew) 324 mg ONCE ONCE PO Last administered on 07/01/17at 19:45 ; Start 07/01/17 at 19:15; Stop 07/01/17 at 19:16; Status DC Sodium Chloride (NS Flush) 2 ml UNSCH PRN IVF FLUSH AFTER USING IV ACCESS; Start 07/01/17 at 19:15; Stop 07/01/17 at 22:52; Status DC Sodium Chloride 1,000 ml @ 125 mls/hr Q8H IV Last administered on 07/01/17at 23: 28; Start 07/01/17 at 20:29; Stop 07/02/17 at 04:28; Status DC Morphine Sulfate (Morphine Inj) 4 mg ONCE ONCE IV PUSH Last administered on 07/01/17at 23:27; Start 07/01/17 at 21:45; Stop 07/01/17 at 21:46; Status DC Sodium Chloride 1,000 ml @ 100 mls/hr Q10H IV Last administered on 07/04/17at 01 :04; Start 07/01/17 at 23:00; Status Future Hold Sodium Chloride (NS Flush) 2 ml BID IV FLUSH Last administered on 07/07/17at 09: 22; Start 07/02/17 at 09:00 Sodium Chloride (NS Flush) 2 ml UNSCH PRN IV FLUSH FLUSH AFTER USING IV ACCESS ; Start 07/01/17 at 22:30 Nitroglycerin (Nitrostat Sl) 0.4 mg Q5M PRN SL ANGINA; Start 07/01/17 at 22:30; Stop 07/03/17 at 08:40; Status DC Acetaminophen (Tylenol) 500 mg Q4H PRN PO HEADACHE; Start 07/01/17 at 22:30 Acetaminophen/ Hydrocodone Bitart ([place] 7.5-325 Mg) 1 tab Q4H PRN PO PAIN SCALE 1 TO 5 Last administered on 07/02/17at 12:35; Start 07/01/17 at 22:30; Stop 07/03/17 at 11:32; Status DC Morphine Sulfate (Morphine Inj) 2 mg Q3H PRN IV PUSH PAIN SCALE 6 TO 10 Last administered on 07/03/17at 09:19; Start 07/01/17 at 23:00; Stop 07/03/17 at 11:32; Status DC Heparin Sodium (Porcine) (Heparin Inj) 5,000 units Q8H SQ Last administered on 07/02/17at 14:41; Start 07/01/17 at 22:30; Stop 07/02/17 at 18:11; Status DC Amlodipine Besylate (Norvasc) 10 mg DAILY PO Last administered on 07/07/17at 09: 21; Start 07/02/17 at 09:00 Morphine Sulfate (Morphine Inj) 4 mg ONCE ONCE IV PUSH ; Start 07/01/17 at 23:00 ; Stop 07/01/17 at 23:01; Status DC Hydralazine HCl (Apresoline Inj) 10 mg ONCE ONCE IV PUSH Last administered on 07/02/17at 00:39; Start 07/02/17 at 00:15; Stop 07/02/17 at 00:16; Status DC Clonidine (Catapres) 0.1 mg Q6H PRN PO SBP>160, DBP>90 Last administered on 07/04at 03:44; Start 07/02/17 at 00:15; Stop 07/04/17 at 11:20; Status DC Hydralazine HCl (Apresoline Inj) 20 mg ONCE ONCE IV PUSH Last administered on 07/02/17at 04:25; Start 07/02/17 at 04:15; Stop 07/02/17 at 04:17; Status DC Aspirin (Ecotrin Ec) 325 mg DAILY PO Last administered on 07/07/17at 09:22; Start 07/03/17 at 09:00 Nitroglycerin (Nitrostat Sl) 0.4 mg Q5M PRN SL CHEST PAIN; Start 07/02/17 at 18: 15 Metoprolol Tartrate (Lopressor) 12.5 mg BID PO Last administered on 07/07/17at 09:21; Start 07/02/17 at 21:00 Atorvastatin Calcium (Lipitor) 10 mg HS PO Last administered on 07/06/17at 20:36 ; Start 07/02/17 at 21:00 Heparin Sodium/ Dextrose 250 ml @ 0 mls/hr TITRATE PRN IV Coagulation Management; Start 07/02/17 at 18:15; Status UNV Heparin Sodium/ Dextrose 250 ml @ 8 mls/hr TITRATE PRN IV Coagulation Management Last administered on 07/02/17at 20:37; Start 07/02/17 at 18:45; Stop 07/03/17 at 08:30; Status DC Enalaprilat (Vasotec Inj) 1.25 mg Q6H PRN IV PUSH bp>160/90 Last administered on 07/06/17at 00:51; Start 07/02/17 at 19:15 Lisinopril (Prinivil) 10 mg DAILY PO Last administered on 07/07/17at 09:20; Start 07/03/17 at 09:00 Isosorbide Mononitrate (Imdur) 30 mg DAILY@07 PO Last administered on at 05:23; Start 07/03/17 at 09:00 Acetaminophen (Tylenol) 650 mg Q4H PRN PO TEMP > 100.4; Start 07/03/17 at 11:15 Ondansetron HCl (Zofran Inj) 4 mg Q6H PRN IVP NAUSEA OR VOMITING Last administered on 07/03/17at 20:06; Start 07/03/17 at 11:15 Metoclopramide HCl (Reglan Inj) 5 mg Q6H PRN IV PUSH NAUSEA OR VOMITING; Start 07/03/17 at 11:15 Zolpidem Tartrate (Ambien) 5 mg HS PRN PO INSOMNIA; Start 07/03/17 at 11:15 Acetaminophen (Tylenol) 650 mg Q6H PRN PO PAIN SCALE 1 TO 2; Start 07/03/17 at 11:15 Oxycodone/ Acetaminophen (Percocet 5-325 Mg) 1 tab Q6H PRN PO PAIN SCALE 3 TO 5; Start 07/03/17 at 11:15; Stop 07/07/17 at 11:14; Status DC Oxycodone/ Acetaminophen (Percocet 10-325 Mg) 1 tab Q6H PRN PO PAIN SCALE 6 TO 10 Last administered on 07/05/17at 03:14; Start 07/03/17 at 11:15; Stop 07/07/17 at 11:14; Status DC Morphine Sulfate (Morphine Inj) 2 mg Q3H PRN IV PUSH Pain 3-5; if PO NOT WORKING Last administered on 07/04/17at 03:36; Start 07/03/17 at 11:15 Morphine Sulfate (Morphine Inj) 4 mg Q3H PRN IV PUSH Pain 6-10;if PO NOT WORKING Last administered on 07/07/17at 09:23; Start 07/03/17 at 11:15 Morphine Sulfate (Morphine Inj) 4 mg Q3H PRN IV PUSH BREAKTHROUGH PAIN Last administered on 07/05/17at 04:50; Start 07/03/17 at 11:15 Naloxone HCl (Narcan Inj) 0.4 mg UNSCH PRN IV PUSH SEE LABEL COMMENTS; Start at 11:15 Senna/Docusate Sodium (Mary Lou-Colace) 1 tab BID PO Last administered on at 09:21; Start 07/03/17 at 21:00 Magnesium Hydroxide (Milk Of Magnesia Liq) 30 ml Q12H PRN PO Mild constipation ; Start 07/03/17 at 11:15 Sennosides (Senokot) 17.2 mg Q12H PRN PO Moderate constipation; Start 07/03/17 at 11:15 Bisacodyl (Dulcolax Supp) 10 mg DAILY PRN RECTAL SEVERE CONSITIPATION; Start at 11:15 Lactulose (Lactulose Liq) 30 ml DAILY PRN PO SEVERE CONSITIPATION; Start at 11:15 Lorazepam (Ativan Inj) 0.5 mg ONCE ONCE IV PUSH Last administered on 07/04/17at 06:18; Start 07/04/17 at 06:15; Stop 07/04/17 at 06:16; Status DC Albuterol/ Ipratropium (Duoneb Neb) 1 ampule ONCE ONCE NEB Last administered on 07/04/17at 06:44; Start 07/04/17 at 06:15; Stop 07/04/17 at 06:16; Status DC Albuterol/ Ipratropium (Duoneb Neb) 1 ampule Q4HR NEB PRN NEB sob/wheezing; Start 07/04/17 at 06:15 Furosemide (Lasix Inj) 40 mg ONCE ONCE IV PUSH Last administered on 07/04/17at 06:49; Start 07/04/17 at 06:45; Stop 07/04/17 at 06:46; Status DC Hydralazine HCl (Apresoline) 50 mg Q8HR PO Last administered on 07/06/17at 07:08 ; Start 07/04/17 at 14:00; Stop 07/06/17 at 11:59; Status DC Clonidine (Catapres) 0.1 mg Q4H PRN PO SBP>160, DBP>90 Last administered on 07/05at 15:24; Start 07/04/17 at 11:00; Stop 07/06/17 at 11:59; Status DC Nicotine (Habitrol 14 Mg Patch.24 Hr) 1 patch ONCE ONCE T-DERMAL Last administered on 07/04/17at 15:00; Start 07/04/17 at 12:00; Stop 07/04/17 at 12:05; Status DC Nicotine (Habitrol 14 Mg Patch.24 Hr) 1 patch DAILY T-DERMAL ; Start 07/05/17 at 09:00 Miscellaneous Information 1 DAILY T-DERMAL ; Start 07/05/17 at 09:00 Lidocaine HCl (Xylocaine-Mpf 1% Inj) 30 ml STK-MED ONCE .ROUTE ; Start 07/05/17 at 14:48; Stop 07/05/17 at 14:49; Status DC Clonidine (Catapres) 0.2 mg Q4H PRN PO SBP>160, DBP>90 Last administered on 01/13at 23:31; Start 07/06/17 at 15:00 Hydralazine HCl (Apresoline) 100 mg Q8HR PO Last administered on 07/07/17at 05: 23; Start 07/06/17 at 14:00 Oxycodone HCl (Roxicodone) 5 mg Q4H PRN PO PAIN 1 TO 5; Start 07/07/17 at 11:15 ; Status UNV Oxycodone HCl (Roxicodone) 10 mg Q4H PRN PO PAIN 6 TO 10; Start 07/07/17 at 11: 15; Status UNV A/P Assessment and Plan 62 years old male with history of prostate cancer presented with chest pain and right neck mass Chest pain atypical rule out ACS 2.5 cm adenopathy submandibular showed on CT of the neck status post right sided interventional radiology lymph node biopsy Elevated troponin Uncontrolled hypertension ADD HYDRALAZINE- ON DILMA, BETA, AMLODIPINE,PRN CATAPRES ADD HYDRALAZINE will need to adjust History of coronary artery disease patient had stress test 10 years ago which was negative Chronic kidney disease with creatinine baseline around 2 History of prostate cancer in remission 10 years ago History of PTSD History of hep C DVT prophylaxis will be on heparin drip Plan: Admit to inpatient with telemetry 3 sets of cardiac enzymes [id number] Morphine, sublingual nitroglycerin, Start heparin drip, consult cardiology, EKG reviewed personally by me showing sinus rhythm with left atrial hypertrophy, which can explain the extra heart sounds revealed on exam, RBBB with possible anteroseptal ischemia- NO INTERVENTIONS PER CARDIOLOGY Consult oncology for neck lymph node, discussed with Dr. Pena and he showed me on the CT scan possible basal lung mass which can be contributed, recommended ENT consult - WILL CONSULT IR FOR LYMPH NODE BIOPSY Continue amlodipine and lisinopril from med rec, creatinine seems to be around his baseline so we will continue DILMA inhibitor, Vasotec as needed we will need to increase hydralazine Interventional radiology for right lymph node biopsies Consult radiation oncology Consult palliative care Consult oral surgery for teeth extraction Consult interventional radiology for PEG tube placed WILL NEED ONCOLOGY FOLLOW UP RADIATION FOLLOW UP ENT FOLLOW UP REGARDING TONGUE DENTAL FOLLOW UP REGARDING TEETH Discharge Planning Pending oncology clearance Corey Mann DO Jul 07, 2017 11:20
[2017-07-07] MEDS ORDERED: ZOFR8TAB PO (11:26)
[2017-07-07] MEDS ORDERED: LIPI10TA PO (11:26)
[2017-07-07] MEDS ORDERED: METO25TA3 PO (11:26)
[2017-07-07] MEDS ORDERED: NITR0.4S SL (11:26)
[2017-07-07] MEDS ORDERED: AMLO10 PO (11:26)
[2017-07-07] MEDS ORDERED: ISOS30TA3 PO (11:26)
[2017-07-07] MEDS ORDERED: SENN187 PO (11:26)
[2017-07-07] MEDS ORDERED: Albuterol-Ipratropium Neb NEB (11:26)
[2017-07-07] MEDS ORDERED: HYDR-3800 PO (11:26)
[2017-07-07] MEDS ORDERED: OXYC-395 PO (11:26)
[2017-07-07] MEDS ORDERED: LISI10TA3 PO (11:26)
--- NOTE | 2017-07-07 11:30 | HHI.DS ---
Discharge Summary Admission Date Jul 01, 2017 at 22:14 Discharge Date: Jul 07, 2017 Admitting Diagnosis Chest pain, abnormal EKG, neck mass (1) Acute on chronic renal insufficiency ICD Code: N28.9 - Disorder of kidney and ureter, unspecified; N18.9 - Chronic kidney disease, unspecified Diagnosis: Secondary Status: Acute (2) Chest pain ICD Code: R07.9 - Chest pain, unspecified Diagnosis: Secondary Status: Acute (3) Neck mass ICD Code: R22.1 - Localized swelling, mass and lump, neck Diagnosis: Principal Status: Acute (4) Hypertension ICD Code: I10 - Essential (primary) hypertension Diagnosis: Principal Status: Chronic (5) Hypertensive urgency ICD Code: I16.0 - Hypertensive urgency Diagnosis: Principal Status: Resolved (6) Sore throat ICD Code: J02.9 - Acute pharyngitis, unspecified Diagnosis: Principal Status: Acute (7) Vomiting ICD Code: R11.10 - Vomiting, unspecified Diagnosis: Secondary Status: Acute Procedures Right side of neck biopsy by interventional radiology PEG TUBE LATER TODAY- 07-07 Brief History - From Admission 62 years old male with history of hypertension coronary artery disease , cervical osteomyelitis of the vertebra status post surgery, tobacco abuse, patient is a who had multiple injuries on his shoulder and on his legs in the past. Patient presented to the hospital complaining of almost few days of chest pain comes and goes no diaphoresis in the center of the chest no cough no fever or chills. No exacerbating or alleviating factor, patient also have right sided neck mass under his jaw that he noticed a few weeks ago it is about 2 cm rubbery, patient is concerned about having lymphoma or infection he denied drug abuse. Patient mentioned he has breast prostate cancer 10 years ago which has been treated with surgery and in remission, patient had physical injury that caused him to lose the right side and he has a metal reconstruction facial surgery in the past, history of hep C, COPD, history of PTSD CBC/BMP: 07/07/17 0658 07/07/17 0658 Significant Findings Laboratory Tests Test 07/05/17 07:54 07/05/17 11:30 07/07/17 06:58 Hematocrit 38.7 % (39.0-51.0) Monocytes (%) (Auto) 8.7 % (0.0-8.0) 8.9 % (0.0-8.0) Blood Urea Nitrogen 31 MG/DL (7-18) 35 MG/DL (7-18) Creatinine 2.41 MG/DL (0.60-1.30) 2.33 MG/DL (0.60-1.30) Albumin 3.1 GM/DL (3.4-5.0) 3.0 GM/DL (3.4-5.0) Alkaline Phosphatase 161 U/L (45-117) 158 U/L (45-117) Aspartate Amino Transf (AST/SGOT) 65 U/L (15-37) 57 U/L (15-37) Alanine Aminotransferase (ALT/SGPT) 83 U/L (12-78) Chloride Level 108 MEQ/L (98-107) 108 MEQ/L (98-107) Estimat Glomerular Filtration Rate 28 ML/MIN (>89) 29 ML/MIN (>89) Hepatitis C IgG Antibody REACTIVE (NONREACTIVE) Neutrophils (%) (Auto) 71.9 % (16.0-70.0) Random Glucose 113 MG/DL (74-106) Imaging Last Impressions Lymph Node Biopsy Ultrasound 07/05/17 0000 Signed Impressions: Service Date/Time: Wednesday, July 05, 2017 13:30 - CONCLUSION: Uncomplicated ultrasound guided needle biopsy right periparotid lymph node.. Corey Hays MD FACR Chest X-Ray 07/04/17 0000 Signed Impressions: Service Date/Time: Tuesday, July 04, 2017 06:10 - CONCLUSION: New bilateral interstitial lung opacity with lower lobe predominance suggesting pulmonary edema. Mild cardiac silhouette enlargement unchanged. Greg Muro MD Chest CT 07/02/17 0000 Signed Impressions: Service Date/Time: Sunday, July 02, 2017 23:23 - CONCLUSION: 1. Mild patchy atelectasis and scarring in the lungs. No pulmonary nodules or masses identified. 2. Borderline enlarged pretracheal and precarinal lymph nodes. 3. Small bilateral pleural effusions. Greg Muro MD Neck CT 07/01/17 0000 Signed Impressions: Service Date/Time: June 20:52 - CONCLUSION: 1. There is a least a 2.5 cm mass in the posterior right lingual region with probable metastatic adenopathy in the upper right cervical region measuring up to 2.9 cm in diameter. 2. Chronic right maxillary sinus disease with thinning or erosion of the anterior and posterior patiño of the right maxillary sinus and complete sinus opacification. 3. Extensive dental caries with small periapical abscesses in the mandible. Neel Lal MD PE at Discharge GENERAL: Awake alert and oriented 3 talkative and cooperative SKIN: Warm and dry. HEAD: Atraumatic. Normocephalic. EYES: Pupils equal and round. No scleral icterus. No injection or drainage. Extraocular muscles intact ENT: No nasal bleeding or discharge. Mucous membranes pink and moist. Tongue is midline NECK: Trachea midline. No JVD. Supple right-sided lymphadenopathy CARDIOVASCULAR: Regular rate and rhythm. S1-S2 no S3-S4 RESPIRATORY: No accessory muscle use. Clear to auscultation. Breath sounds equal bilaterally. GASTROINTESTINAL: Abdomen soft, non-tender, nondistended. Hepatic and splenic margins not palpable. MUSCULOSKELETAL: Extremities without clubbing, cyanosis, or edema. No obvious deformities. NEUROLOGICAL: Awake and alert. No obvious cranial nerve deficits. Motor grossly within normal limits. Five out of 5 muscle strength in the arms and legs. Normal speech. PSYCHIATRIC: Appropriate mood and affect; insight and judgment normal. Hospital Course 62 years old male with history of hypertension coronary artery disease , cervical osteomyelitis of the vertebra status post surgery, tobacco abuse, patient is a who had multiple injuries on his shoulder and on his legs in the past. Patient presented to the hospital complaining of almost few days of chest pain comes and goes no diaphoresis in the center of the chest no cough no fever or chills. No exacerbating or alleviating factor, patient also have right sided neck mass under his jaw that he noticed a few weeks ago it is about 2 cm rubbery, patient is concerned about having lymphoma or infection he denied drug abuse. Patient mentioned he has breast prostate cancer 10 years ago which has been treated with surgery and in remission, patient had physical injury that caused him to lose the right side and he has a metal reconstruction facial surgery in the past, history of hep C, COPD, history of PTSD 4-7 PATIENT SEEN BY ENT AND ONCOLOGY TO HAVE BIOPSY OF RIGHT NECK TOMORROW NPO AFTERMIDNIGHT DW RN AND PT AND CASE MANAGEMENT PAIN CONTROL -8 WILL CONSULT IR FOR BIOPSY OF RIGHT SIDE LYMPH NODE DW RN AND PT AND CM HAD ATIVAN LAST NIGHT BECAME CONFUSED NO MORE ATIVAN EVER 4-9 patient is scheduled to have biopsy of right side of neck/lymph node Discussed with patient and RN and case management Oncology has consulted interventional radiology for PEG as well as for dentistry for tooth removal has also been consulted by radiation - patient had the lymph node biopsy on the right side of his neck yesterday July 05 Await pathology Has been seen by dentistry they recommend that he start radiation and his teeth can be extracted later Patient has a 8-year-old child that is staying with his boss at this time--this will probably make his treatment more difficult States he is taking some pain medications for the right-sided neck pain Await pathology Discussed with RN and patient and case management Blood pressure still not at goal increase hydralazine AM LABS Pt Condition on Discharge: Fair Discharge Disposition: Discharge Home Discharge Time: > 30 minutes Discharge Instructions DIET: Follow Instructions for: As Tolerated, No Restrictions, Heart Healthy Diet Speech Therapy-Diet Recommends: Regular Activities you can perform: Regular-No Restrictions Other Activity Instructions: NO TUB BATHS OR SWIMMING Follow up Referrals: Dental - 3-5 Days Ear Nose Throat - 1 Week with Kirby Coles MD Oncology - 1 Week Oncology/Hematology - 1 Week PCP Follow-up - 3-5 Days @ [facility] New Medications: Ondansetron (Zofran) 8 Mg Tab 8 MG PO TID PRN for NAUSEA, #30 TAB 0 Refills Atorvastatin (Lipitor) 10 Mg Tab 10 MG PO HS for Cholesterol Management, #30 TAB Hydralazine HCl (Hydralazine HCl) 50 Mg Tablet 100 MG PO Q8HR for Blood Pressure Management, #180 TAB Isosorbide Mononitrate ER (Isosorbide Mononitrate ER) 30 Mg Dhruv 30 MG PO DAILY@07 for Blood Pressure Management, #30 TAB Metoprolol Tartrate (Metoprolol Tartrate) 25 Mg Tab 12.5 MG PO BID for Blood Pressure Management, #60 TAB Nitroglycerin SL (Nitrostat SL) 0.4 Mg Subl 0.4 MG SL Q5M PRN for CHEST PAIN, #100 TAB Oxycodone (Oxycodone) 10 Mg Tab 10 MG PO Q4H PRN for PAIN 6 TO 10, #60 TAB Sennosides (Senna-Lax) 8.6 Mg Tab 17.2 MG PO Q12H PRN for Moderate constipation, #120 TAB [Albuterol-Ipratropium Neb] () 1 AMPULE NEBU 1 AMPULE NEB Q4HR NEB PRN for sob/wheezing, #180 AMPULE Continued Medications: Amlodipine (Norvasc) 10 Mg Tab 10 MG PO DAILY for Blood Pressure Management, #30 TAB 0 Refills (This prescription has been renewed) Lisinopril (Lisinopril) 10 Mg Tab 10 MG PO DAILY for Blood Pressure Management, #30 TAB 0 Refills (This prescription has been renewed) Corey Mann DO Jul 07, 2017 11:30
== END 2017-07-07 15:15 | disposition home or self-care (01) | DRG 803 ==
LOC: NEPC 18:14 → NEDA 22:14 → NEDH 07-02 02:14 → HCIN 07-02 13:11
PROVIDERS: ADMIT Hospitalist; ATTEND Hospitalist
PROC: 07B13ZX Excision of Right Neck Lymphatic, Percutaneous Approach, Diagnostic (ICD-10-PCS; principal; 2017-07-05)
DX: R59.0 Localized enlarged lymph nodes (principal); N18.4 Chronic kidney disease, stage 4 (severe); I12.9 Hypertensive chronic kidney disease with stage 1 through stage 4 chronic kidney disease, or unspecified chronic kidney disease; J44.9 Chronic obstructive pulmonary disease, unspecified; J02.9 Acute pharyngitis, unspecified; I16.0 Hypertensive urgency; R11.10 Vomiting, unspecified; R07.9 Chest pain, unspecified; F17.210 Nicotine dependence, cigarettes, uncomplicated; I25.10 Atherosclerotic heart disease of native coronary artery without angina pectoris; Z85.46 Personal history of malignant neoplasm of prostate; I45.10 Unspecified right bundle-branch block; J32.0 Chronic maxillary sinusitis; M27.2 Inflammatory conditions of jaws; G47.30 Sleep apnea, unspecified; K04.7 Periapical abscess without sinus; K02.9 Dental caries, unspecified; Z86.14 Personal history of Methicillin resistant Staphylococcus aureus infection; I25.2 Old myocardial infarction; Z86.73 Personal history of transient ischemic attack (TIA), and cerebral infarction without residual deficits; Z86.19 Personal history of other infectious and parasitic diseases; Z88.8 Allergy status to other drugs, medicaments and biological substances
CPT/HCPCS: 36600; 38505; 70490; 71045; 71250; 76937; 76942; 80053; 80061; 80074; 82550; 82552; 82805; 83036; 83735; 84100; 84439; 84443; 84484; 85025; 85027; 85610; 85730; 88305; 88333; 88341; 88342; 93005; 93306; 94664; 96360; J0360; J1644; J1940; J2060; J2270; J2405; J7030

== ENCOUNTER 2017-08-07 01:31 | Inpatient (IN) | payer MEDICARE ==
[2017-08-07] MEDS ORDERED: SODIUM CHLORIDE 0.9% FLUSH 10 ML FLUSH IVF (02:15)
[2017-08-07] MEDS: SODIUM CHLOR 0.9% 1000 ML INJ 1,000 ML IV ×2 (02:22→09:55)
[2017-08-07] MEDS: ACETAMINOPHEN 325 MG TAB PO (02:23)
[2017-08-07] MEDS: HYDROmorphone HCL PF 2 MG/ML VIAL IV PUSH ×2 (02:23→08:47)
[2017-08-07 02:31] LABS: AUTOMATED NEUTROPHIL # 4.7 TH/MM3 (1.8-7.7); BASOPHIL # 0.1 TH/MM3 (0-0.2); BASOPHIL % 0.9 % (0.0-2.0); EOSINOPHIL # 0.3 TH/MM3 (0-0.4); EOSINOPHIL % 3.7 % (0.0-4.0); HEMATOCRIT 37.7 % (39.0-51.0); HEMO FLAGS DIFF FINAL; LYMPHOCYTE # 2.3 TH/MM3 (1.0-4.8); MEAN CELL VOLUME 84.3 FL (80.0-100.0); MEAN CORPUSCULAR HGB CONC 34.4 % (32.0-36.0); MEAN PLATELET VOLUME 7.3 FL (7.0-11.0); MONO % 10.1 % (0.0-8.0); MONOCYTE # 0.8 TH/MM3 (0-0.9); NEUT % 57.3 % (16.0-70.0); PLATELET COUNT 285 TH/MM3 (150-450); RED BLOOD COUNT 4.46 MIL/MM3 (4.50-5.90); RED CELL DISTRIBUTION WIDTH 14.1 % (11.6-17.2); WHITE BLOOD COUNT 8.3 TH/MM3 (4.0-11.0)
[2017-08-07 02:44] LABS: APTT (PATIENT) 27.6 SEC (24.3-30.1); PROTHROMBIN TIME - PATIENT 10.3 SEC (9.8-11.6)
[2017-08-07] MEDS: LORazepam 2 MG/ML VIAL IV PUSH (02:45)
[2017-08-07] MEDS: cloNIDine HCL 0.1 MG TAB PO (02:50)
[2017-08-07 02:51] LABS: ALKALINE PHOSPHATASE 156 U/L (45-117); TOTAL BILIRUBIN ADULT 0.2 MG/DL (0.2-1.0); TOTAL PROTEIN 8.1 GM/DL (6.4-8.2)
[2017-08-07 02:54] LABS: ALBUMIN 3.3 GM/DL (3.4-5.0); ALT (GPT) 69 U/L (12-78); ANION GAP 10 MEQ/L (5-15); AST (GOT) 59 U/L (15-37); BICARBONATE 24.4 MEQ/L (21.0-32.0); BLOOD UREA NITROGEN 39 MG/DL (7-18); C-REACTIVE PROTEIN LESS THAN 0.29 MG/DL (0.00-0.30); CALCIUM 8.7 MG/DL (8.5-10.1); CHLORIDE 107 MEQ/L (98-107); CREATININE 2.99 MG/DL (0.60-1.30); GLOMERULAR FILTRATION RATE 22 ML/MIN (>89); GLUCOSE,RANDOM 121 MG/DL (74-106); POTASSIUM 4.8 MEQ/L (3.5-5.1); SODIUM (NA) 141 MEQ/L (136-145)
[2017-08-07 02:56] LABS: WESTERGREN SEDIMENTATION RATE 69 mm/hr (0-20)
[2017-08-07] MEDS: MORPHINE SULFATE 8 MG/ML INJ IV PUSH (03:33)
[2017-08-07] MEDS: niCARdipine INJ 25 MG in SODIUM CHLOR 0.9% 250 ML INJ 240 ML IV (04:00)
[2017-08-07] MEDS: diphenhydrAMINE HCL 50 MG/ML VIAL IV PUSH (04:25)
[2017-08-07] MEDS ORDERED: BISACODYL 10 MG SUPP RECTAL (05:00)
[2017-08-07] MEDS ORDERED: CHLORHEXIDINE GLUCONATE 2 % 1 PACK (2 CLOTHS) TOP (05:00)
[2017-08-07] MEDS ORDERED: ACETAMINOPHEN 325 MG TAB PO (05:00)
[2017-08-07] MEDS ORDERED: METOCLOPRAMIDE HCL 10 MG/2 ML VIAL IV PUSH (05:00)
[2017-08-07] MEDS ORDERED: MAGNESIUM HYDROXIDE SUSP 30 ML CUP PO (05:00)
[2017-08-07] MEDS ORDERED: NURSING INFORMATION XX (05:00)
[2017-08-07] MEDS ORDERED: SODIUM CHLORIDE 0.9% FLUSH 10 ML FLUSH IV FLUSH (05:00)
[2017-08-07] MEDS ORDERED: niCARdipine INJ 25 MG in SODIUM CHLOR 0.9% 250 ML INJ 240 ML IV (05:00)
[2017-08-07] MEDS ORDERED: SENNOSIDES 8.6 MG TAB PO (05:00)
[2017-08-07] MEDS: hydrALAZINE HCL 100 MG TAB PO ×3 (06:17→23:39)
[2017-08-07] MEDS: ISOSORBIDE MONONITRATE 30 MG CR TAB (IMDUR) PO (06:44)
[2017-08-07] MEDS ORDERED: hydrALAZINE HCL 20 MG/ML VIAL IV PUSH (08:30)
[2017-08-07] MEDS ORDERED: cloNIDine HCL 0.1 MG TAB PO (08:30)
[2017-08-07] MEDS: DOCUSATE SODIUM 50 MG/SENNA 8.6 MG TAB PO ×2 (08:47→23:40)
[2017-08-07] MEDS: METOPROLOL TARTRATE 25 MG TAB PO ×2 (08:47→23:39)
[2017-08-07] MEDS: SODIUM CHLORIDE 0.9% FLUSH 10 ML FLUSH IV FLUSH ×2 (09:56→23:39)
[2017-08-07] MEDS: REMOVE OLD PATCH T-DERMAL (10:15)
[2017-08-07] MEDS ORDERED: hydrOXYzine HCL 10 MG TAB PO (10:15)
[2017-08-07] MEDS: NICOTINE 14 MG/24 HR PATCH T-DERMAL (10:38)
[2017-08-07] MEDS: LACTULOSE SYRUP 20 GM/30 ML CUP PO (10:39)
[2017-08-07 10:41] LABS: MRSA PCR SURVEILLANCE MRSA NOT DETECTED (NOT DETECT)
[2017-08-07 18:43] LABS: BILIRUBIN, URINE NEG (NEG); BLOOD, URINE NEG (NEG); COMMENT (UR) CULT NOT INDICATED; CULTURE IF INDICATED CULT NOT INDICATED; GLUCOSE,URINE NEG (NEG); KETONE, URINE NEG (NEG); MUCUS URINE FEW /lpf (OCC); NITRITE,URINE NEG (NEG); URINE COLOR YELLOW (YELLW/STRAW); URINE LEUKOCYTE ESTERASE NEG (NEG)
[2017-08-07 23:03] LABS: I-STAT BLOOD UREA NITROGEN 39 MG/DL (5-21); I-STAT CHLORIDE 107 MMOL/L (102-111); I-STAT CREATININE 2.7 MG/DL (0.6-1.3); I-STAT GLUCOSE 86 MG/DL (68-110); I-STAT HEMOGLOBIN (CALC.) 12.2 G/DL (13.0-17.0); I-STAT POTASSIUM 5.5 MMOL/L (3.6-5.0); I-STAT SODIUM 140 MMOL/L (137-144)
[2017-08-07 23:07] LABS: AUTOMATED NEUTROPHIL # 4.5 TH/MM3 (1.8-7.7); BASOPHIL % 0.2 % (0.0-2.0); EOSINOPHIL # 0.2 TH/MM3 (0-0.4); EOSINOPHIL % 2.4 % (0.0-4.0); HEMATOCRIT 35.9 % (39.0-51.0); HEMO FLAGS DIFF FINAL; HEMOGLOBIN 12.2 GM/DL (13.0-17.0); LYMPH % 24.3 % (9.0-44.0); LYMPHOCYTE # 1.7 TH/MM3 (1.0-4.8); MEAN CELL VOLUME 85.2 FL (80.0-100.0); MEAN CORPUSCULAR HEMOGLOBIN 28.9 PG (27.0-34.0); MEAN CORPUSCULAR HGB CONC 33.9 % (32.0-36.0); MEAN PLATELET VOLUME 7.5 FL (7.0-11.0); MONO % 8.2 % (0.0-8.0); MONOCYTE # 0.6 TH/MM3 (0-0.9); NEUT % 64.9 % (16.0-70.0); PLATELET COUNT 246 TH/MM3 (150-450); RED BLOOD COUNT 4.22 MIL/MM3 (4.50-5.90); RED CELL DISTRIBUTION WIDTH 14.3 % (11.6-17.2)
[2017-08-07 23:17] LABS: APTT (PATIENT) 23.4 SEC (24.3-30.1); PROTHROMBIN TIME - PATIENT 10.3 SEC (9.8-11.6)
[2017-08-07] MEDS: HYDROmorphone HCL PF 0.5 MG/0.5 ML SYRINGE IV PUSH (23:38)
[2017-08-08] MEDS: CHLORHEXIDINE GLUCONATE 2 % 1 PACK (2 CLOTHS) TOP (02:46)
[2017-08-08] MEDS: SODIUM CHLOR 0.9% 1000 ML INJ 1,000 ML IV (04:09)
[2017-08-08] MEDS: ISOSORBIDE MONONITRATE 30 MG CR TAB (IMDUR) PO (06:06)
[2017-08-08] MEDS: hydrALAZINE HCL 100 MG TAB PO (06:06)
[2017-08-08] MEDS: HYDROmorphone HCL PF 0.5 MG/0.5 ML SYRINGE IV PUSH (06:46)
[2017-08-08 07:19] LABS: AUTOMATED NEUTROPHIL # 4.3 TH/MM3 (1.8-7.7); BASOPHIL # 0.1 TH/MM3 (0-0.2); EOSINOPHIL # 0.2 TH/MM3 (0-0.4); HEMATOCRIT 33.1 % (39.0-51.0); HEMO FLAGS DIFF FINAL; HEMOGLOBIN 11.1 GM/DL (13.0-17.0); LYMPH % 24.9 % (9.0-44.0); LYMPHOCYTE # 1.7 TH/MM3 (1.0-4.8); MEAN CELL VOLUME 84.8 FL (80.0-100.0); MEAN CORPUSCULAR HEMOGLOBIN 28.3 PG (27.0-34.0); MEAN CORPUSCULAR HGB CONC 33.4 % (32.0-36.0); MEAN PLATELET VOLUME 7.7 FL (7.0-11.0); MONO % 6.9 % (0.0-8.0); MONOCYTE # 0.5 TH/MM3 (0-0.9); NEUT % 64.2 % (16.0-70.0); PLATELET COUNT 232 TH/MM3 (150-450); RED BLOOD COUNT 3.91 MIL/MM3 (4.50-5.90); RED CELL DISTRIBUTION WIDTH 14.2 % (11.6-17.2); WHITE BLOOD COUNT 6.7 TH/MM3 (4.0-11.0)
[2017-08-08 07:38] LABS: ALBUMIN 2.7 GM/DL (3.4-5.0); ANION GAP 8 MEQ/L (5-15); AST (GOT) 60 U/L (15-37); BLOOD UREA NITROGEN 30 MG/DL (7-18); CALCIUM 8.6 MG/DL (8.5-10.1); CHLORIDE 110 MEQ/L (98-107); CREATININE 2.36 MG/DL (0.60-1.30); GLOMERULAR FILTRATION RATE 28 ML/MIN (>89); GLUCOSE,RANDOM 94 MG/DL (74-106); MAGNESIUM 2.1 MG/DL (1.5-2.5); POTASSIUM 4.2 MEQ/L (3.5-5.1); SODIUM (NA) 141 MEQ/L (136-145)
[2017-08-08 07:39] LABS: ALT (GPT) 64 U/L (12-78)
[2017-08-08 07:40] LABS: COMPLEMENT C3 106 MG/DL (90-180)
[2017-08-08 07:40] LABS: COMPLEMENT C4 23 MG/DL (10-40)
[2017-08-08 07:42] LABS: ALKALINE PHOSPHATASE 127 U/L (45-117); PHOSPHORUS 3.4 MG/DL (2.5-4.9); TOTAL BILIRUBIN ADULT 0.3 MG/DL (0.2-1.0); TOTAL PROTEIN 6.7 GM/DL (6.4-8.2)
[2017-08-08] MEDS: SODIUM CHLORIDE 0.9% FLUSH 10 ML FLUSH IV FLUSH (08:11)
[2017-08-08] MEDS: METOPROLOL TARTRATE 25 MG TAB PO (08:18)
[2017-08-08] MEDS: DOCUSATE SODIUM 50 MG/SENNA 8.6 MG TAB PO (08:21)
[2017-08-08] MEDS: NICOTINE 14 MG/24 HR PATCH T-DERMAL (08:23)
[2017-08-08] MEDS: REMOVE OLD PATCH T-DERMAL (08:23)
[2017-08-08] MEDS: HYDROmorphone HCL 4 MG TAB PO (09:52)
[2017-08-08] MEDS: cloNIDine HCL 0.2 MG TAB PO (10:29)
[2017-08-08] MEDS ORDERED: NIFEdipine 60 MG SUSTAINED RELEASE TAB PO (21:00)
[2017-08-08] MEDS ORDERED: PILL SPLITTER OTHER (21:00)
[2017-08-09 10:54] LABS: ANA SCREEN POS (NEG)
== END 2017-08-08 12:27 | disposition home or self-care (01) | DRG 304 ==
LOC: NEPC 01:31 → NEDA 04:38 → HIME 05:30 → N05B 15:48
DX: I16.0 Hypertensive urgency (principal); G93.40 Encephalopathy, unspecified; N17.9 Acute kidney failure, unspecified; C76.0 Malignant neoplasm of head, face and neck; I16.1 Hypertensive emergency; N18.3 Chronic kidney disease, stage 3 (moderate); I12.9 Hypertensive chronic kidney disease with stage 1 through stage 4 chronic kidney disease, or unspecified chronic kidney disease; E86.0 Dehydration; B19.20 Unspecified viral hepatitis C without hepatic coma; M54.2 Cervicalgia; R51 Headache; I25.10 Atherosclerotic heart disease of native coronary artery without angina pectoris; F41.9 Anxiety disorder, unspecified; R80.9 Proteinuria, unspecified; F17.210 Nicotine dependence, cigarettes, uncomplicated; H54.61 Unqualified visual loss, right eye, normal vision left eye; H02.402 Unspecified ptosis of left eyelid; Z85.46 Personal history of malignant neoplasm of prostate; Z79.899 Other long term (current) drug therapy
CPT/HCPCS: 70450; 76775; 80048; 80053; 81001; 83735; 84100; 85025; 85610; 85652; 85730; 86021; 86021-59; 86038; 86039; 86140; 86160; 86850; 86900; 86901; 87641; 93005; 96361; 96365; 96375; 99285-25

== ENCOUNTER 2017-08-16 19:13 | Emergency (ER) | payer MEDICARE ==
[~2017-08-16] VITALS: Ht 180.3 cm; Wt 65.9 kg
[~2017-08-16 19:13] MED LIST changes: +Albuterol-Ipratropium Neb NEB; -CEFE2INJ9 IV; -EPIN1INJ21 SQ; +HYDR-3800 PO; +ISOS30TA3 PO; +LIPI10TA PO; +LISI10TA3 PO; +NIFE60TA8 PO; +NITR0.4S SL; -OXYC-392 PO; +SENN187 PO; +ZOFR8TAB PO
[2017-08-16 19:41] VITALS: BP 200/96; PULSE 86; RESP 18; TEMP 98.8; O2SAT 98
[2017-08-16 20:24] VITALS: BP 199/102; PULSE 77; RESP 18; O2SAT 99
[2017-08-16] MEDS ORDERED: AMLO10TA2 PO (20:30)
[2017-08-16] MEDS ORDERED: HYDR-3583 PO (20:30)
--- NOTE | 2017-08-16 20:40 | PD ---
HPI Chief Complaint: Pain: Acute or Chronic Time Seen by Provider: 20:33 Travel History International Travel<30 days: No Contact w/Intl Traveler<30days: No Traveled to known affect area: No History of Present Illness HPI The patient is a 62 year old male who presents to the [facility] emergency department with a history of recent diagnosis of head and neck cancer in June 2017. The patient is currently under the care of Dr. Pena, his oncologist, and radiation oncologist. The patient's social research assistant is . The plan is for the patient to undergo radiation therapy, however according to the radiation oncologist last note from August 10 they recommended that the patient undergo dental extractions prior to the radiation therapy being started. The patient presents to the emergency department today with concerns of increased pain today with elevated blood pressure. The patient reports that he has severe neck pain. He denies having any neck stiffness. He denies having any known recent fevers. He is not currently on chemotherapy. He did 4 days ago undergo dental extractions as recommended by his radiation oncologist. He has not followed up with his primary oncologist, Dr. Pena. He reports that he was unaware that he needed to follow-up with Dr. Pena and his radiation oncologist. The patient reports that he has been taking his blood pressure medications as prescribed. He reports that he last took for pain, hydrocodone 3 hours prior to arrival. Review of systems otherwise, the patient denies having any congestion, chest pain, shortness of breath, abdominal pain, vomiting, diarrhea, urinary symptoms, or neurologic symptoms. He last moved his bowels earlier today. He reports that he recently quit smoking. [facility] Past Medical History Narrative Medical The patient's past medical history is significant for anxiety disorder, prostate cancer, hypertension, coronary artery disease, hepatitis C, tobacco abuse, recent diagnosis of head and neck cancer. Arthritis: Yes Asthma: No Autoimmune Disease: No Blood Disorders: No Anxiety: Yes Depression: No Heart Rhythm Problems: No Cancer: Yes (hx PROSTATE) Cardiovascular Problems: Yes (CAD) High Cholesterol: No Chemotherapy: Yes (with prostate ) Chest Pain: Yes Congestive Heart Failure: No COPD: No Cerebrovascular Accident: Yes (X3) Coronary Artery Disease: Yes Diabetes: No Diminished Hearing: No Endocrine: No Gastrointestinal Disorders: Yes GERD: No Genitourinary: No Headaches: No Hepatitis: Yes (HEP C) Hiatal Hernia: No Heparin Induced Thrombocytopen: No Hypertension: Yes Immune Disorder: Yes (HEP C) Implanted Vascular Access Dvce: No Kidney Stones: No Musculoskeletal: Yes Neurologic: Yes Psychiatric: Yes Reproductive: No Respiratory: Yes Immunizations Current: No Migraines: No Myocardial Infarction: Yes (2007) Radiation Therapy: Yes Renal Failure: No Seizures: No Sickle Cell Disease: No Sleep Apnea: Yes Thyroid Disease: No Ulcer: Yes Tetanus Vaccination: < 5 Years Influenza Vaccination: Yes Past Surgical History Narrative Surgical The patient's past surgical history is significant for left shoulder surgery, right arm surgery. Abdominal Surgery: No AICD: No Appendectomy: No Arteriovenous Shunt: No Cardiac Surgery: No Cholecystectomy: No Ear Surgery: No Endocrine Surgery: No Eye Surgery: Yes Genitourinary Surgery: No Gynecologic Surgery: No Insulin Pump: No Joint Replacement: Yes (L SHOULDER) Neurologic Surgery: Yes Oral Surgery: Yes Pacemaker: No Thoracic Surgery: Yes (RIGHT UPPER ARM ARTERY SURGERY) Other Surgery: Yes (PLASTIC SURGERY TO HEAD AND FACE ,) Social History Alcohol Use: No Tobacco Use: No (sometimes july 27 here anf there) Substance Use: No Allergies-Medications (Allergen,Severity, Reaction): Coded Allergies: simvastatin (Unverified Adverse Reaction, Severe, Joint Pain, 08/07/17) COULD NOT TOLERATE STATINS Reported Meds & Prescriptions Reported Meds & Active Scripts Active Dilaudid (Hydromorphone HCl) 8 Mg Tab 8 Mg PO Q6H PRN Cancer related pain management. Nifedipine ER 24 HR (Nifedipine) 60 Mg Tab 60 Mg PO Q12HR Zofran (Ondansetron HCl) 8 Mg Tab 8 Mg PO TID PRN Senna-Lax (Sennosides) 8.6 Mg Tab 17.2 Mg PO Q12H PRN Nitrostat SL (Nitroglycerin) 0.4 Mg Subl 0.4 Mg SL Q5M PRN Isosorbide Mononitrate ER (Isosorbide Mononitrate) 30 Mg Dhruv 30 Mg PO DAILY@07 Hydralazine HCl 50 Mg Tablet 100 Mg PO Q8HR Lipitor (Atorvastatin Calcium) 10 Mg Tab 10 Mg PO HS Lisinopril 10 Mg Tab 10 Mg PO DAILY Reported Hydrocodone-Acetaminophen 10-325 mg Tab 1 Tab PO Q4H PRN Amlodipine (Amlodipine Besylate) 10 Mg Tab 10 Mg PO DAILY Review of Systems Except as stated in HPI: all other systems reviewed are Neg General / Constitutional: No: Fever Eyes: No: Visual changes HENT: Positive: Neck Pain, No: Headaches, Neck Stiffness Cardiovascular: No: Chest Pain or Discomfort, Dyspnea on exertion Respiratory: No: Shortness of Breath Gastrointestinal: No: Nausea, Vomiting, Diarrhea, Abdominal Pain Genitourinary: No: Dysuria Musculoskeletal: No: Pain Skin: No Rash Neurologic: No: Weakness, Focal Abnormalities, Headache, Change in Mentation, Slurred Speech, Sensory Disturbance Psychiatric: No: Depression Endocrine: No: Polydipsia Hematologic/Lymphatic: No: Easy Bruising Physical Exam Narrative General: The patient is a well-developed well-nourished male in no acute distress. Head and Neck exam: Head is normocephalic atraumatic. Eyes: EOMI, pupils are equal round and reactive to light. Nose: Midline septum with pink mucous membranes Mouth: Dentition unremarkable. Moist mucus membranes. Posterior oropharynx is not erythematous. No tonsillar hypertrophy. Uvula midline. Airway patent. Neck: No nuchal rigidity. No thyromegaly. The patient on examination of his neck is noted to have palpable right neck mass that is firm to palpation. Cardiovascular: Regular rate and rhythm without murmurs, gallops, or rubs. No pulse deficit to the extremities on simultaneous auscultation and palpation of his radial artery. Lungs: Clear to auscultation bilaterally. No wheezes, rhonchi, or rales. Abdomen: Soft, without tenderness to palpation in all 4 quadrants of the abdomen. No guarding, rebound, or rigidity. Normal bowel sounds are audible. No tenderness on palpation of McBurney's point. Extremities: No clubbing, cyanosis, or edema. 2+ pulses in all 4 extremities. No calf tenderness on palpation. Back: No spinous process tenderness to palpation. No costovertebral angle tenderness to palpation. Neurologic Exam: Cranial nerves 2-12 were intact on exam. Strength is 5/5 in all 4 extremities. No sensory deficits noted. Skin Exam: No rash noted. Intact skin that is warm and dry. Data Data Last Documented VS Vital Signs Date Time Temp Pulse Resp B/P (MAP) Pulse Ox O2 Delivery O2 Flow Rate FiO2 08/16/17 23:46 08/16/17 23:03 69 16 99 Room Air 08/16/17 19:41 98.8 Orders Orders Electrocardiogram (08/16/17 21:00) Complete Blood Count With Diff (08/16/17 21:00) Basic Metabolic Panel (Bmp) (08/16/17 21:00) Iv Access Insert/Monitor (08/16/17 21:00) Ecg Monitoring (08/16/17 21:00) Oximetry (08/16/17 21:00) Sodium Chlorid 0.9% 500 Ml Inj (Ns 500 M (08/16/17 21:00) Ondansetron Odt (Zofran Odt) (08/16/17 21:00) Hydromorphone Pf Inj (Dilaudid Pf Inj) (08/16/17 21:30) Hydralazine (Apresoline) (08/16/17 22:15) Hydromorphone Pf Inj (Dilaudid Pf Inj) (08/16/17 22:30) Labs Laboratory Tests Test 08/16/17 21:07 White Blood Count 6.7 TH/MM3 Red Blood Count 4.55 MIL/MM3 Hemoglobin 13.2 GM/DL Hematocrit 38.9 % Mean Corpuscular Volume 85.6 FL Mean Corpuscular Hemoglobin 29.1 PG Mean Corpuscular Hemoglobin Concent 34.0 % Red Cell Distribution Width 14.3 % Platelet Count 278 TH/MM3 Mean Platelet Volume 7.5 FL Neutrophils (%) (Auto) 60.5 % Lymphocytes (%) (Auto) 25.2 % Monocytes (%) (Auto) 11.0 % Eosinophils (%) (Auto) 2.7 % Basophils (%) (Auto) 0.6 % Neutrophils # (Auto) 4.0 TH/MM3 Lymphocytes # (Auto) 1.7 TH/MM3 Monocytes # (Auto) 0.7 TH/MM3 Eosinophils # (Auto) 0.2 TH/MM3 Basophils # (Auto) 0.0 TH/MM3 CBC Comment DIFF FINAL Differential Comment Blood Urea Nitrogen 38 MG/DL Creatinine 3.07 MG/DL Random Glucose 90 MG/DL Calcium Level 8.9 MG/DL Sodium Level 138 MEQ/L Potassium Level 4.6 MEQ/L Chloride Level 106 MEQ/L Carbon Dioxide Level 21.3 MEQ/L Anion Gap 11 MEQ/L Estimat Glomerular Filtration Rate 21 ML/MIN MDM Medical Decision Making Medical Screen Exam Complete: Yes Emergency Medical Condition: Yes Medical Record Reviewed: Yes Differential Diagnosis Pain causing hypertension, versus uncontrolled hypertension with current medication regimen, versus hypertensive urgency, versus hypertensive emergency. Narrative Course During the course of the patient's emergency department visit, the patient's history, examination, and differential diagnosis were reviewed with the patient. The patient was placed on a coping machine assembler with oximetry and frequent blood pressure monitoring. The patient had IV access obtained and blood work sent for analysis. The patient's blood pressure on arrival was 200/96 and on arrival back to the room is 199/102. The patient otherwise has no symptoms associated with this other than his neck pain. From reviewing the electronic medical record the patient was discharged home on 8 mg of hydromorphone every 6 hours. He reports that he ran out of that prescription and has not followed up with his primary oncologist, Dr. Pena. He instead has now been placed on hydrocodone. He reports that the hydrocodone is not alleviating his pain. The patient had an EKG done on arrival that shows a sinus rhythm heart rate of 60, QRS duration 157 ms, QTC 472 ms. Right bundle branch block is noted. A left anterior fascicular block is noted. This is compared to prior EKGs done at this facility and is similar to an EKG last done here on August 07, 2017. The patient was initially provided hydromorphone 1 mg IV, Zofran 4 mg ODT, normal saline at 500 mL bolus 1. The patient's laboratory studies were reviewed and remarkable for a CBC shows a white count of 6.7, hemoglobin 13.2, platelets 278 with 11 monocytes, basic metabolic profile is remarkable for a BUN of 38, creatinine 3.07 which is compared to prior renal function test done at this facility and on August 08 was last noted to be 30 and 2.36 respectively. The patient has a history of renal insufficiency. The patient continued to have pain and was given an additional 1 mg of hydromorphone IV. The patient was given his nighttime dose of hydralazine 100 mg p.o. 1. In the 4 square he was done on this patient. The patient was last given hydrocodone/acetaminophen 10/325 by the radiation oncologist on July 31. The patient at that time was given 50 tablets. The patient's medication regimen for his high blood pressure was reviewed with him as he seemed to be confused about how many times a day to take his blood pressure medication. A printout of his discharge summary with current medication recommendations was provided to him and reviewed with him. The patient was given a 1 day prescription for hydromorphone as recommended by his oncologist, Dr. Pena. He was instructed to follow-up with Dr. Pena for an appointment in the next 24-48 hours. The patient is resting comfortably and feels better, is alert and in no distress. The patient's results and examination findings were discussed with the patient. The repeat examination is unremarkable and benign. The history, exam, diagnostic testing, and current condition do not suggest any significant pathology to warrant further testing, continued ED treatment, admission, or surgical evaluation at this point. The vital signs have been stable. The patient does not have uncontrollable pain, intractable vomiting, or other significant symptoms. The patient's condition is stable and appropriate for discharge. The patient will pursue further outpatient evaluation with a primary care physician or other designated or consulting physician as indicated in the discharge instructions. The patient is instructed to report back to the emergency department immediately for reexamination in the mean time if he/ she develops any new or worsening signs or symptoms. The patient expressed understanding and was agreeable with this plan. Diagnosis Primary Impression: Intractable pain Additional Impressions: Head and neck cancer Hypertension Qualified Codes: I10 - Essential (primary) hypertension Referrals: Mateo Pena MD 1 day Patient Instructions: General Instructions, Hypertension (ED), Neck Pain (ED) Additional Instructions: The patient is instructed to avoid taking hydrocodone at the same time as the hydromorphone that was prescribed. Med/Other Pt SpecificInfo: Prescription(s) given, Med Stopped (Hydrocodone) Scripts Hydromorphone (Dilaudid) 8 Mg Tab 8 MG PO Q6H Y for Pain Management, #4 TAB 0 Refills Cancer related pain management. Prov: Марина Dorsey MD 08/16/17 Disposition: 01 DISCHARGE HOME Condition: Stable Марина Dorsey MD August 16, 2017 20:40
[2017-08-16] MEDS ORDERED: ONDANSETRON ODT 4 MG TAB PO ONE (21:00)
[2017-08-16] MEDS ORDERED: SODIUM CHLORID 0.9% 500 ML INJ 500 ML IV ONE (21:00)
[2017-08-16] MEDS ORDERED: HYDROmorphone HCL PF 1 MG/ML VIAL IV PUSH ONE ×2 (21:00→22:30)
[2017-08-16 21:22] LABS: BASOPHIL % 0.6 % (0.0-2.0); EOSINOPHIL # 0.2 TH/MM3 (0-0.4); EOSINOPHIL % 2.7 % (0.0-4.0); HEMATOCRIT 38.9 % (39.0-51.0); HEMOGLOBIN 13.2 GM/DL (13.0-17.0); LYMPH % 25.2 % (9.0-44.0); LYMPHOCYTE # 1.7 TH/MM3 (1.0-4.8); MEAN CELL VOLUME 85.6 FL (80.0-100.0); MEAN CORPUSCULAR HEMOGLOBIN 29.1 PG (27.0-34.0); MEAN PLATELET VOLUME 7.5 FL (7.0-11.0); MONOCYTE # 0.7 TH/MM3 (0-0.9); NEUT % 60.5 % (16.0-70.0); PLATELET COUNT 278 TH/MM3 (150-450); RED BLOOD COUNT 4.55 MIL/MM3 (4.50-5.90); RED CELL DISTRIBUTION WIDTH 14.3 % (11.6-17.2); WHITE BLOOD COUNT 6.7 TH/MM3 (4.0-11.0)
[2017-08-16 21:28] VITALS: RESP 18; O2SAT 98
[2017-08-16] MEDS ORDERED: HYDROmorphone HCL PF 0.5 MG/0.5 ML SYRINGE IV PUSH ONE (21:30)
[2017-08-16 22:05] LABS: BICARBONATE 21.3 MEQ/L (21.0-32.0); CALCIUM 8.9 MG/DL (8.5-10.1); CREATININE 3.07 MG/DL (0.60-1.30)
[2017-08-16] MEDS ORDERED: hydrALAZINE HCL 100 MG TAB PO ONE (22:15)
[2017-08-16] MEDS ORDERED: HYDROmorphone HCL PF 0.5 MG/0.5 ML SYRINGE IV ONE (22:30)
[2017-08-16 23:03] VITALS: BP 194/89; PULSE 69; RESP 16; O2SAT 99
[2017-08-16] MEDS ORDERED: DILA8TAB4 PO (23:17)
--- NOTE | 2017-08-17 16:57 | EKG ---
Date Performed: 08/16/2017 Time Performed: 22:08:57 PTAGE: 62 years EKG: Sinus rhythm RIGHT BUNDLE BRANCH BLOCK LEFT ANTERIOR FASCICULAR BLOCK SEPTAL MYOCARDIAL INFARCTION ABNORMAL ECG PREVIOUS TRACING : 08/07/2017 22.44 Since the previous tracing, no significant change noted DOCTOR: Eboni Maguire Interpretating Date/Time 08/17/2017 16:56:46
== END 2017-08-16 23:47 | disposition home or self-care (01) ==
LOC: NEPE 19:13
DX: G89.3 Neoplasm related pain (acute) (chronic) (principal); C76.0 Malignant neoplasm of head, face and neck; I10 Essential (primary) hypertension; Z87.891 Personal history of nicotine dependence
CPT/HCPCS: 80048; 85025; 93005; 96374; 96376; 99284; J1170; J7040

== ENCOUNTER 2017-08-19 09:08 | Emergency (ER) | payer MEDICARE ==
[~2017-08-19] VITALS: Ht 180.3 cm; Wt 66.0 kg
[~2017-08-19 09:08] MED LIST changes: +AMLO10TA2 PO; -Albuterol-Ipratropium Neb NEB; +HYDR-3583 PO
[2017-08-19 09:25] VITALS: BP 169/81; PULSE 90; RESP 20; TEMP 99.3; O2SAT 98
[2017-08-19] MEDS ORDERED: HYDR8TAB PO (10:43)
[2017-08-19] MEDS ORDERED: HYDROmorphone HCL 4 MG TAB PO ONE (10:45)
--- NOTE | 2017-08-19 10:51 | PD ---
HPI Chief Complaint: Hypertension Time Seen by Provider: 10:33 Travel History International Travel<30 days: No Contact w/Intl Traveler<30days: No Traveled to known affect area: No History of Present Illness HPI 62-year-old male with history of head and neck cancer followed by Dr. Pena, his oncologist, and Dr. Coles, his ENT physician, presents emergency department with ongoing increased hypertension secondary to his pain. Patient was given #4 hydromorphone 8 mg every 6 hours on [address] Dorsey for similar complaint. Patient is having difficulty getting his regular prescriptions due to authorization issues getting in with his oncologist. He has been taking his blood pressure medications as previously prescribed. Blood pressure is not significantly elevated in triage. His pain currently is 9 out of 10. He has been taking hydrocodone, which is not covering his pain. He has been out of his hydromorphone that he was prescribed since yesterday. He denies any other acute issues. He is allergic to Lipitor. PFSH Past Medical History Arthritis: Yes Asthma: No Autoimmune Disease: No Blood Disorders: No Anxiety: Yes Depression: No Heart Rhythm Problems: No Cancer: Yes (hx PROSTATE, head and neck and throat Ca ) Cardiovascular Problems: Yes (CAD) High Cholesterol: No Chemotherapy: Yes (with prostate ) Chest Pain: Yes Congestive Heart Failure: No COPD: No Cerebrovascular Accident: Yes (X3) Coronary Artery Disease: Yes Diabetes: No Diminished Hearing: No Endocrine: No Gastrointestinal Disorders: Yes GERD: No Genitourinary: No Headaches: No Hepatitis: Yes (HEP C) Hiatal Hernia: No Heparin Induced Thrombocytopen: No Hypertension: Yes Immune Disorder: Yes (HEP C) Implanted Vascular Access Dvce: No Kidney Stones: No Medical other: Yes (OSTEOMYELITIS ) Musculoskeletal: Yes Neurologic: Yes Psychiatric: Yes Reproductive: No Respiratory: Yes Immunizations Current: No Migraines: No Myocardial Infarction: Yes (2008) Radiation Therapy: Yes Renal Failure: No Seizures: No Sickle Cell Disease: No Sleep Apnea: Yes Thyroid Disease: No Ulcer: Yes Tetanus Vaccination: < 5 Years Influenza Vaccination: Yes Past Surgical History Abdominal Surgery: No AICD: No Appendectomy: No Arteriovenous Shunt: No Cardiac Surgery: No Cholecystectomy: No Ear Surgery: No Endocrine Surgery: No Eye Surgery: Yes Genitourinary Surgery: No Gynecologic Surgery: No Insulin Pump: No Joint Replacement: Yes (L SHOULDER) Neurologic Surgery: Yes (NECK FUSION ) Oral Surgery: Yes Pacemaker: No Thoracic Surgery: Yes (RIGHT UPPER ARM ARTERY SURGERY) Other Surgery: Yes (PLASTIC SURGERY TO HEAD AND FACE ,) Social History Alcohol Use: No Tobacco Use: No (quit ) Substance Use: No Allergies-Medications (Allergen,Severity, Reaction): Coded Allergies: simvastatin (Unverified Adverse Reaction, Severe, Joint Pain, 08/07/17) COULD NOT TOLERATE STATINS Reported Meds & Prescriptions Reported Meds & Active Scripts Active Hydromorphone (Hydromorphone HCl) 8 Mg Tab 8 Mg PO Q6H PRN Dilaudid (Hydromorphone HCl) 8 Mg Tab 8 Mg PO Q6H PRN Cancer related pain management. Nifedipine ER 24 HR (Nifedipine) 60 Mg Tab 60 Mg PO Q12HR Zofran (Ondansetron HCl) 8 Mg Tab 8 Mg PO TID PRN Senna-Lax (Sennosides) 8.6 Mg Tab 17.2 Mg PO Q12H PRN Nitrostat SL (Nitroglycerin) 0.4 Mg Subl 0.4 Mg SL Q5M PRN Isosorbide Mononitrate ER (Isosorbide Mononitrate) 30 Mg Dhruv 30 Mg PO DAILY@07 Hydralazine HCl 50 Mg Tablet 100 Mg PO Q8HR Lipitor (Atorvastatin Calcium) 10 Mg Tab 10 Mg PO HS Lisinopril 10 Mg Tab 10 Mg PO DAILY Reported Hydrocodone-Acetaminophen 10-325 mg Tab 1 Tab PO Q4H PRN Amlodipine (Amlodipine Besylate) 10 Mg Tab 10 Mg PO DAILY Review of Systems Except as stated in HPI: all other systems reviewed are Neg General / Constitutional: No: Fever Eyes: No: Visual changes HENT: No: Headaches Cardiovascular: No: Chest Pain or Discomfort Respiratory: No: Shortness of Breath Gastrointestinal: No: Abdominal Pain Genitourinary: No: Dysuria Musculoskeletal: Positive: Myalgias, Arthralgias, Pain Skin: No Rash Neurologic: No: Weakness Psychiatric: No: Depression Endocrine: No: Polydipsia Hematologic/Lymphatic: No: Easy Bruising Physical Exam Narrative GENERAL: Patient appears in mild distress. SKIN: Warm and dry. Normal color. Normal turgor. No rash. HEAD: Atraumatic. Normocephalic. EYES: Pupils equal and round. No scleral icterus. No injection or drainage. ENT: No nasal bleeding or discharge. Mucous membranes pink and moist. NECK: Trachea midline. The patient has palpable firm lump on the right neck consistent with his history. CARDIOVASCULAR: Regular rate and rhythm. RESPIRATORY: No accessory muscle use. Clear to auscultation. Breath sounds equal bilaterally. GASTROINTESTINAL: Abdomen soft, non-tender, nondistended. Hepatic and splenic margins not palpable. MUSCULOSKELETAL: Extremities without clubbing, cyanosis, or edema. No obvious deformities. NEUROLOGICAL: Awake and alert. No obvious cranial nerve deficits. Motor grossly within normal limits. Five out of 5 muscle strength in the arms and legs. Normal speech. PSYCHIATRIC: Appropriate mood and affect; insight and judgment normal. Data Data Last Documented VS Vital Signs Date Time Temp Pulse Resp B/P (MAP) Pulse Ox O2 Delivery O2 Flow Rate FiO2 08/19/17 09:25 99.3 90 20 169/81 (110) 98 Orders Orders Hydromorphone (Dilaudid) (08/19/17 10:45) [facility] Medical Decision Making Medical Screen Exam Complete: Yes Emergency Medical Condition: Yes Differential Diagnosis Cancer pain. Hypertension. Hypertension secondary to lack of pain control. Narrative Course Patient is discussed with Dr. Riggs who agrees to a refill of #12 8 mg hydromorphone, 1 every 6 hours as needed. Patient is given 4 mg hydromorphone p.o. now Patient is recommended to follow-up with Dr. Pena, Dr. Coles, or Dr. Martinez for further pain medicine treatment. He should continue his other medications as previously prescribed. Diagnosis Primary Impression: Head and neck cancer Additional Impressions: Intractable pain Hypertension Qualified Codes: I10 - Essential (primary) hypertension Referrals: Petar Mendoza MD,Mateo Coles,Kirby Noble MD Patient Instructions: General Instructions Additional Instructions: Patient is discussed with Dr. Riggs who agrees to a refill of #12 8 mg hydromorphone, 1 every 6 hours as needed. Patient is given 4 mg hydromorphone p.o. now Patient is recommended to follow-up with Dr. Pena, Dr. Coles, or Dr. Martinez for further pain medicine treatment. He should continue his other medications as previously prescribed. Med/Other Pt SpecificInfo: Prescription(s) given Scripts Hydromorphone (Hydromorphone) 8 Mg Tab 8 MG PO Q6H Y for Pain Management, #12 TAB 0 Refills Prov: Angel Riggs MD 08/19/17 Disposition: 01 DISCHARGE HOME Condition: Stable Luther Villalba August 19, 2017 10:51
[2017-08-19 11:09] VITALS: BP 158/101; PULSE 69; RESP 16; O2SAT 100
== END 2017-08-19 11:14 | disposition home or self-care (01) ==
LOC: NEPD 09:08
DX: R52 Pain, unspecified (principal); I10 Essential (primary) hypertension; C76.0 Malignant neoplasm of head, face and neck; C79.89 Secondary malignant neoplasm of other specified sites; M19.90 Unspecified osteoarthritis, unspecified site; I25.10 Atherosclerotic heart disease of native coronary artery without angina pectoris; F41.9 Anxiety disorder, unspecified; Z86.19 Personal history of other infectious and parasitic diseases; Z86.73 Personal history of transient ischemic attack (TIA), and cerebral infarction without residual deficits
CPT/HCPCS: 99281

== ENCOUNTER 2017-08-23 08:53 | Emergency (ER) | payer MEDICARE ==
[~2017-08-23] VITALS: Ht 180.3 cm; Wt 65.0 kg
[~2017-08-23 08:53] MED LIST changes: +HYDR8TAB PO
[2017-08-23 08:55] VITALS: BP 206/121; PULSE 98; RESP 16; TEMP 98.7; O2SAT 99
[2017-08-23 09:24] VITALS: BP 219/104; PULSE 80; RESP 18; O2SAT 100
--- NOTE | 2017-08-23 09:36 | PD ---
HPI Chief Complaint: General Weakness Time Seen by Provider: 09:04 Travel History International Travel<30 days: No Contact w/Intl Traveler<30days: No Traveled to known affect area: No History of Present Illness HPI He was actually admitted here patient is a 8-year-old male with a history of squamous cell cancer of the head and neck presents emergency department for evaluation of neck pain. Patient has been seen here several times for this, [facility] and states he has been having a difficult time establishing with oncologist. 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 States very difficult to get [facility] and therefore follow-up so he has not done so. He has actually been here several times since that admission for similar complaints. Of note the patient does reveal he has a history of osteomyelitis of the cervical spine which was diagnosed at this hospital in November of last year. States symptoms have been gradually worsening, they are not associate with any numbness and tingling loss of sensation loss of motor function of any extremity. No injury reported. Context as above, duration is over a month. PFSH Past Medical History Arthritis: Yes Asthma: No Autoimmune Disease: No Blood Disorders: No Anxiety: Yes Depression: No Heart Rhythm Problems: No Cancer: Yes (hx PROSTATE, head and neck and throat Ca ) Cardiovascular Problems: Yes High Cholesterol: No Chemotherapy: Yes (with prostate ) Chest Pain: Yes Congestive Heart Failure: No COPD: No Cerebrovascular Accident: Yes (X3) Coronary Artery Disease: Yes Diabetes: No Diminished Hearing: No Endocrine: No Gastrointestinal Disorders: Yes GERD: No Genitourinary: No Headaches: No Hepatitis: Yes (HEP C) Hiatal Hernia: No Heparin Induced Thrombocytopen: No Hypertension: Yes Immune Disorder: Yes (HEP C) Implanted Vascular Access Dvce: No Kidney Stones: No Musculoskeletal: Yes Neurologic: Yes Psychiatric: Yes Reproductive: No Respiratory: Yes Immunizations Current: No Migraines: No Myocardial Infarction: Yes (2007) Radiation Therapy: Yes Renal Failure: No Seizures: No Sickle Cell Disease: No Sleep Apnea: Yes Thyroid Disease: No Ulcer: Yes Tetanus Vaccination: > 5 Years Influenza Vaccination: No Past Surgical History Abdominal Surgery: No AICD: No Appendectomy: No Arteriovenous Shunt: No Cardiac Surgery: No Cholecystectomy: No Ear Surgery: No Endocrine Surgery: No Eye Surgery: Yes Genitourinary Surgery: No Gynecologic Surgery: No Insulin Pump: No Joint Replacement: Yes (L SHOULDER) Neurologic Surgery: Yes (NECK FUSION ) Oral Surgery: Yes Pacemaker: No Thoracic Surgery: Yes (RIGHT UPPER ARM ARTERY SURGERY) Other Surgery: Yes (PLASTIC SURGERY TO HEAD AND FACE ,) Social History Alcohol Use: No Tobacco Use: No (quit ) Substance Use: No Allergies-Medications (Allergen,Severity, Reaction): Coded Allergies: simvastatin (Unverified Adverse Reaction, Severe, Joint Pain, 08/23/17) COULD NOT TOLERATE STATINS Reported Meds & Prescriptions Reported Meds & Active Scripts Active Dilaudid (Hydromorphone HCl) 8 Mg Tab 8 Mg PO Q6H PRN Hydromorphone (Hydromorphone HCl) 8 Mg Tab 8 Mg PO Q6H PRN Dilaudid (Hydromorphone HCl) 8 Mg Tab 8 Mg PO Q6H PRN Cancer related pain management. Nifedipine ER 24 HR (Nifedipine) 60 Mg Tab 60 Mg PO Q12HR Zofran (Ondansetron HCl) 8 Mg Tab 8 Mg PO TID PRN Senna-Lax (Sennosides) 8.6 Mg Tab 17.2 Mg PO Q12H PRN Nitrostat SL (Nitroglycerin) 0.4 Mg Subl 0.4 Mg SL Q5M PRN Isosorbide Mononitrate ER (Isosorbide Mononitrate) 30 Mg Dhruv 30 Mg PO DAILY@07 Hydralazine HCl 50 Mg Tablet 100 Mg PO Q8HR Lipitor (Atorvastatin Calcium) 10 Mg Tab 10 Mg PO HS Lisinopril 10 Mg Tab 10 Mg PO DAILY Reported Hydrocodone-Acetaminophen 10-325 mg Tab 1 Tab PO Q4H PRN Amlodipine (Amlodipine Besylate) 10 Mg Tab 10 Mg PO DAILY Review of Systems Except as stated in HPI: all other systems reviewed are Neg Physical Exam Narrative GENERAL: Well-developed thin male unkempt but in no obvious distress. Quite pleasant. SKIN: Focused skin assessment warm/dry. HEAD: Atraumatic. Normocephalic. EYES: Pupils equal and round. No scleral icterus. No injection or drainage. ENT: No nasal bleeding or discharge. Mucous membranes pink and moist. There is a mass versus enlarged lymph node at the right angle of the jaw, nontender to palpation overlying erythema. He states this is the site of the squamous cell carcinoma. NECK: Trachea midline. No JVD. CARDIOVASCULAR: Regular rate and rhythm. No murmur appreciated. RESPIRATORY: No accessory muscle use. Clear to auscultation. Breath sounds equal bilaterally. GASTROINTESTINAL: Abdomen soft, non-tender, nondistended. Hepatic and splenic margins not palpable. MUSCULOSKELETAL: No obvious deformities. No clubbing. No cyanosis. No edema. No midline CT or L-spine tenderness, 2+ bilateral equal pulses in all 4 extremities, motor and sensory intact distally in all 4 extremities. NEUROLOGICAL: Awake and alert. No obvious cranial nerve deficits. Motor grossly within normal limits. Normal speech. PSYCHIATRIC: Appropriate mood and affect; insight and judgment normal. Data Data Last Documented VS Vital Signs Date Time Temp Pulse Resp B/P (MAP) Pulse Ox O2 Delivery O2 Flow Rate FiO2 08/23/17 12:44 75 18 202/119 (146) 100 08/23/17 10:31 Room Air 08/23/17 08:55 98.7 Orders Orders Basic Metabolic Panel (Bmp) (08/23/17 09:33) Complete Blood Count With Diff (08/23/17 09:33) Hydromorphone (Dilaudid) (08/23/17 10:15) Mri C Spine W/O Contrast (08/23/17 ) Ed Discharge Order (08/23/17 12:31) Labs Laboratory Tests Test 08/23/17 09:45 White Blood Count 8.3 TH/MM3 Red Blood Count 4.59 MIL/MM3 Hemoglobin 12.9 GM/DL Hematocrit 39.2 % Mean Corpuscular Volume 85.2 FL Mean Corpuscular Hemoglobin 28.0 PG Mean Corpuscular Hemoglobin Concent 32.9 % Red Cell Distribution Width 14.6 % Platelet Count 296 TH/MM3 Mean Platelet Volume 7.2 FL Neutrophils (%) (Auto) 69.9 % Lymphocytes (%) (Auto) 18.8 % Monocytes (%) (Auto) 8.8 % Eosinophils (%) (Auto) 1.9 % Basophils (%) (Auto) 0.6 % Neutrophils # (Auto) 5.8 TH/MM3 Lymphocytes # (Auto) 1.6 TH/MM3 Monocytes # (Auto) 0.7 TH/MM3 Eosinophils # (Auto) 0.2 TH/MM3 Basophils # (Auto) 0.1 TH/MM3 CBC Comment DIFF FINAL Differential Comment Blood Urea Nitrogen 36 MG/DL Creatinine 2.48 MG/DL Random Glucose 101 MG/DL Calcium Level 9.3 MG/DL Sodium Level 141 MEQ/L Potassium Level 4.7 MEQ/L Chloride Level 108 MEQ/L Carbon Dioxide Level 28.5 MEQ/L Anion Gap 5 MEQ/L Estimat Glomerular Filtration Rate 27 ML/MIN MDM Medical Decision Making Medical Screen Exam Complete: Yes Emergency Medical Condition: Yes Differential Diagnosis Acute on chronic neck pain, osteomyelitis of the neck seems unlikely, significant spinal stenosis seems unlikely peer Narrative Course Patient roomed in the emergency department, he appears nontoxic, I think that given this is 1 of several presentations he has had to the emergency department for similar complaints he does deserve exclusion of osteomyelitis, an MRI of his C-spine was ordered: Last 24 hours Impressions Cervical Spine MRI 08/23/17 0000 Signed Impressions: CONCLUSION: 1. Partial fusion. Degenerative changes. 2. Minimal anterolisthesis C3 on 4 and C4 on 5. 3. Minimal retrolisthesis and partial fusion C5-6. No canal stenosis. I reviewed the films and certainly does have significant fusion and curvature of the spine but does not appear to have any significant changes consistent with osteomyelitis nor cervical stenosis. Patient was given 2 mg p.o. Dilaudid , Dilaudid p.o. prescription was written for him to go home, he was urged to follow-up with oncology in the [facility] at his earliest convenience before he becomes sicker. He wishes to have treatment of his cancer as he has a young child at home. He is stable for discharge at this time. Diagnosis Primary Impression: Neck pain Med/Other Pt SpecificInfo: Prescription(s) given Scripts Hydromorphone (Dilaudid) 8 Mg Tab 8 MG PO Q6H Y for Pain Management, #10 TAB 0 Refills Prov: Ismael Manriquez MD 08/23/17 Disposition: 01 DISCHARGE HOME Condition: Stable Ismael Manriquez MD August 23, 2017 09:36
[2017-08-23 10:00] LABS: AUTOMATED NEUTROPHIL # 5.8 TH/MM3 (1.8-7.7); BASOPHIL # 0.1 TH/MM3 (0-0.2); BASOPHIL % 0.6 % (0.0-2.0); EOSINOPHIL # 0.2 TH/MM3 (0-0.4); EOSINOPHIL % 1.9 % (0.0-4.0); HEMATOCRIT 39.2 % (39.0-51.0); HEMOGLOBIN 12.9 GM/DL (13.0-17.0); LYMPH % 18.8 % (9.0-44.0); LYMPHOCYTE # 1.6 TH/MM3 (1.0-4.8); MEAN CELL VOLUME 85.2 FL (80.0-100.0); MEAN CORPUSCULAR HGB CONC 32.9 % (32.0-36.0); MEAN PLATELET VOLUME 7.2 FL (7.0-11.0); MONO % 8.8 % (0.0-8.0); MONOCYTE # 0.7 TH/MM3 (0-0.9); NEUT % 69.9 % (16.0-70.0); PLATELET COUNT 296 TH/MM3 (150-450); RED BLOOD COUNT 4.59 MIL/MM3 (4.50-5.90); RED CELL DISTRIBUTION WIDTH 14.6 % (11.6-17.2); WHITE BLOOD COUNT 8.3 TH/MM3 (4.0-11.0)
[2017-08-23] MEDS ORDERED: HYDROmorphone HCL 2 MG TAB PO ONE (10:15)
[2017-08-23 10:22] LABS: BICARBONATE 28.5 MEQ/L (21.0-32.0); CALCIUM 9.3 MG/DL (8.5-10.1); CREATININE 2.48 MG/DL (0.60-1.30)
[2017-08-23 10:31] VITALS: BP 209/98; PULSE 65; RESP 16; O2SAT 100
--- NOTE | 2017-08-23 12:21 | RADRPT ---
EXAM DATE: 08/23/2017 12:13 PM EDT AGE/SEX: 62 years / Male INDICATIONS: . Lumpt to right side of neck. CLINICAL DATA: This is the patient's initial encounter. Patient reports that signs and symptoms have been present for 1 day and indicates a pain score of 2/10. MEDICAL/SURGICAL HISTORY: Cardiovascular disease. Carcinoma, prostatic. Hepatitis C. Head,ne ck,throat cancer. Fusion, cervical. COMPARISON: [facility] – [place], [place] CERVICAL SPINE W/O CONTRAST, 12/04/2011. . TECHNIQUE: Multiplanar, multisequence MRI examination of the cervical spine was performed without co ntrast. FINDINGS: Vertebrae: Partial fusion C5-6 and C6-7 with slight retrolisthesis C5 on 6. Anterolisthesis C3 on 4 and C4-5. Degenerative changes at C4-5 and C5-C7. Alignment: Normal. Cord: Normal configuration and signal. Post Fossa: The cerebellar tonsils are normal in position. C2-C3: The thecal sac has a normal configuration. There is no evidence of disc herniation or spinal canal stenosis. The neural foramina are patent bilaterally. C3-C4: Minimal anterolisthesis. The thecal sac has a normal configuration. There is no evidence of disc herniation or spinal canal stenosis. The neural foramina are patent bilaterally. C4-C5: Minimal anterolisthesis and small broad based posterior disc osteophyte complex. No canal guido nosis. The neural foramina are patent bilaterally. C5-C6: Minimal retrolisthesis and partial fusion with small broad based posterior disc osteophyte co mplex. No canal stenosis. The neural foramina are patent bilaterally. C6-C7: The thecal sac has a normal configuration. There is no evidence of disc herniation or spinal canal stenosis. The neural foramina are patent bilaterally. C7-T1: No epidural impressions seen. CONCLUSION: 1. Partial fusion. Degenerative changes. 2. Minimal anterolisthesis C3 on 4 and C4 on 5. 3. Minimal retrolisthesis and partial fusion C5-6. No canal stenosis. Electronically signed by: Ross Lassiter MD 08/23/2017 12:20 PM EDT
[2017-08-23] MEDS ORDERED: DILA8TAB4 PO (12:31)
[2017-08-23 12:44] VITALS: BP 202/119
== END 2017-08-23 12:45 | disposition home or self-care (01) ==
LOC: NEPC 08:53
DX: M54.2 Cervicalgia (principal); C44.42 Squamous cell carcinoma of skin of scalp and neck; F41.9 Anxiety disorder, unspecified; B19.20 Unspecified viral hepatitis C without hepatic coma; I10 Essential (primary) hypertension; I25.10 Atherosclerotic heart disease of native coronary artery without angina pectoris; I25.2 Old myocardial infarction; Z86.73 Personal history of transient ischemic attack (TIA), and cerebral infarction without residual deficits; Z87.891 Personal history of nicotine dependence
CPT/HCPCS: 72141; 80048; 85025

== ENCOUNTER 2017-09-02 13:15 | Inpatient (IN) | payer MEDICARE, OTHER ==
[~2017-09-02] VITALS: Ht 180.3 cm; Wt 68.6 kg
[2017-09-02 13:26] VITALS: BP 203/97; PULSE 75; RESP 18; TEMP 98.6; O2SAT 98
[2017-09-02] MEDS ORDERED: SODIUM CHLOR 0.9% 1000 ML INJ 1,000 ML IV ONE (13:32)
[2017-09-02 13:48] LABS: AUTOMATED NEUTROPHIL # 6.7 TH/MM3 (1.8-7.7); BASOPHIL % 0.5 % (0.0-2.0); EOSINOPHIL # 0.1 TH/MM3 (0-0.4); EOSINOPHIL % 0.8 % (0.0-4.0); HEMATOCRIT 31.1 % (39.0-51.0); HEMOGLOBIN 10.5 GM/DL (13.0-17.0); LYMPH % 18.1 % (9.0-44.0); LYMPHOCYTE # 1.6 TH/MM3 (1.0-4.8); MEAN CELL VOLUME 85.5 FL (80.0-100.0); MEAN CORPUSCULAR HEMOGLOBIN 28.9 PG (27.0-34.0); MEAN CORPUSCULAR HGB CONC 33.8 % (32.0-36.0); MEAN PLATELET VOLUME 7.9 FL (7.0-11.0); MONO % 5.8 % (0.0-8.0); MONOCYTE # 0.5 TH/MM3 (0-0.9); NEUT % 74.8 % (16.0-70.0); PLATELET COUNT 291 TH/MM3 (150-450); RED BLOOD COUNT 3.63 MIL/MM3 (4.50-5.90); RED CELL DISTRIBUTION WIDTH 14.8 % (11.6-17.2); WHITE BLOOD COUNT 8.9 TH/MM3 (4.0-11.0)
[2017-09-02 13:57] LABS: PROTHROMBIN TIME - PATIENT 10.5 SEC (9.8-11.6)
[2017-09-02 14:00] VITALS: O2SAT 97
--- NOTE | 2017-09-02 14:00 | RADRPT ---
EXAM DATE: 09/02/2017 1:50 PM EDT AGE/SEX: 62 years / Male INDICATIONS: Stroke alert, right sided weakness and facial droop. CLINICAL DATA: This is the patient's initial encounter. Patient reports that signs and symptoms have been present for 1 day and indicates a pain score of Nonresponsive. MEDICAL/SURGICAL HISTORY: Non-responsive. Non-responsive. RADIATION DOSE: 56.35 CTDI (mGy) [place] [facility] [place]. . Report was called by [ myself to Flore[place]io in the emergency room since Dr. Ravi was in the room wit h the patient.] TECHNIQUE: CT of the head without contrast. Using automated exposure control and adjustment of the mA and/or kV according to patient size, radiation dose was kept as low as reasonably achievable to ob tain optimal diagnostic quality images. FINDINGS: There is no evidence for intracranial hemorrhage, mass effect, mass lesions, or edema. The visualize d bony structures appear intact. Moderate degree of brain atrophy is seen. Moderate periventricular white matter changes are seen nonspecific mostly consistent with chronic small vessel ischemic change s. There are no signs of acute infarction for technique. CONCLUSION: Chronic small vessel ischemic and atrophic changes not significantly changed. Electronically signed by: Marycruz Tran MD 09/02/2017 1:58 PM EDT
[2017-09-02 14:11] LABS: TROPONIN I LESS THAN 0.02 NG/ML (0.02-0.05)
[2017-09-02] MEDS ORDERED: PROCHLORPERAZINE INJ 10 MG/2 ML VIAL IV PUSH ONE (14:15)
[2017-09-02] MEDS ORDERED: MORPHINE SULFATE 4 MG/ML INJ IV PUSH ONE (14:15)
[2017-09-02 14:28] VITALS: O2SAT 94
--- NOTE | 2017-09-02 14:29 | RADRPT ---
EXAM DATE: 09/02/2017 2:21 PM EDT AGE/SEX: 62 years / Male INDICATIONS: Stroke alert. CLINICAL DATA: This is the patient's initial encounter. Patient reports that signs and symptoms have been present for 1 day and indicates a pain score of 0/10. MEDICAL/SURGICAL HISTORY: . head and neck cancer None. [place] [facility] [place]. . FINDINGS: A single AP view of the chest demonstrates the lungs to be symmetrically aerated without evidence of mass, infiltrate or effusion. The cardiomediastinal contours are unremarkable. Osseous structures a re intact. Osteoarthritis involving the left shoulder. CONCLUSION: Negative examination. Electronically signed by: Bernabe Pederson MD 09/02/2017 2:27 PM EDT
[2017-09-02 15:48] VITALS: BP 156/74; PULSE 66; RESP 16; O2SAT 97
[2017-09-02 15:57] LABS: BILIRUBIN, URINE NEG (NEG); BLOOD, URINE NEG (NEG); GLUCOSE,URINE NEG (NEG); KETONE, URINE NEG (NEG); NITRITE,URINE NEG (NEG); PH, URINE 6.5 (5.0-8.5); URINE COLOR LIGHT-YELLOW (YELLW/STRAW); URINE LEUKOCYTE ESTERASE NEG (NEG)
--- NOTE | 2017-09-02 16:11 | HHI.HP ---
[facility] Unknown Admission Diagnosis CVA vs stroke, cephalgia, head and neck cancer, ckd Diagnoses: Chief Complaint: left facial droop and right sided weakness Travel History International Travel<30 Days: No Contact w/Intl Traveler <30 Da: No Traveled to Known Affected Are: No History of Present Illness This is a 62/M with h/o HTN, Prostate CA, CAD, CKD, prostate CA in remission for 12 years and head & neck CA diagnosed about 1.5 mos ago presenting as a stroke alert. Patient reports that he was brushing his teeth and getting ready to go to the oncology center. Around that time he noted a left-sided facial droop with slurred speech and right sided upper and lower extremity weakness. He also noted a mild headache. He denies any nausea or vomiting. He also complained of mild left lower extremity edema. Upon further probing, he also complained of right-sided numbness Review of Systems ROS Limitations: Other (All other pertinent systems were reviewed and are negative.) Past Family Social History Past Medical History Anxiety, Prostate CA, HTN, CAD, Hepatitis C, chronic kidney disease, tobacco Abuse and Head & Neck CA Past Surgical History Left Shoulder Surgery, Right Arm Surgery Reported Medications Dilaudid (Hydromorphone HCl) 8 Mg Tab 8 Mg PO Q6H PRN Hydromorphone (Hydromorphone HCl) 8 Mg Tab 8 Mg PO Q6H PRN Dilaudid (Hydromorphone HCl) 8 Mg Tab 8 Mg PO Q6H PRN Cancer related pain management. Nifedipine ER 24 HR (Nifedipine) 60 Mg Tab 60 Mg PO Q12HR Zofran (Ondansetron HCl) 8 Mg Tab 8 Mg PO TID PRN Senna-Lax (Sennosides) 8.6 Mg Tab 17.2 Mg PO Q12H PRN Nitrostat SL (Nitroglycerin) 0.4 Mg Subl 0.4 Mg SL Q5M PRN Isosorbide Mononitrate ER (Isosorbide Mononitrate) 30 Mg Dhruv 30 Mg PO DAILY@07 Hydralazine HCl 50 Mg Tablet 100 Mg PO Q8HR Lipitor (Atorvastatin Calcium) 10 Mg Tab 10 Mg PO HS Lisinopril 10 Mg Tab 10 Mg PO DAILY Hydrocodone-Acetaminophen 10-325 mg Tab 1 Tab PO Q4H PRN Amlodipine (Amlodipine Besylate) 10 Mg Tab 10 Mg PO DAILY Allergies: Coded Allergies: simvastatin (Unverified Adverse Reaction, Severe, Joint Pain, 09/02/17) COULD NOT TOLERATE STATINS Family History No h/o DM or CAD Social History Negative for alcohol or drugs. Smokes 1ppd. Physical Exam Vital Signs Vital Signs Date Time Temp Pulse Resp B/P (MAP) Pulse Ox O2 Delivery O2 Flow Rate FiO2 09/02/17 15:48 66 16 156/74 (101) 97 09/02/17 14:28 94 21 09/02/17 14:00 97 Room Air 09/02/17 14:00 97 Room Air 09/02/17 13:26 98.6 75 18 203/97 (132) 98 Physical Exam Not in distress PERRL, pink conjunctiva without injection, anicteric Nose without bleeding Positive for right cervical mass, hard, mildly tender Normal rate and regular rhythm, no murmurs gallops or rubs appreciated. Clear to auscultation and symmetric bilaterally, normal respiratory effort. Normal bowel sounds, soft, non-tender, nondistended, no guarding. Extremities without clubbing, cyanosis, 1+ edema. 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 Left nasolabial fold narrowing on the left. 4/5 right upper extremity, 4/5 left lower extremity. There is 60% touch sensory loss in the right upper extremity and 80% sensory loss in the left lower extremity. Laboratory Laboratory Tests Test 09/02/17 13:30 09/02/17 15:45 White Blood Count 8.9 Red Blood Count 3.63 Hemoglobin 10.5 Bedside Hemoglobin 10.2 Hematocrit 31.1 Bedside Hematocrit 30.0 Mean Corpuscular Volume 85.5 Mean Corpuscular Hemoglobin 28.9 Mean Corpuscular Hemoglobin Concent 33.8 Red Cell Distribution Width 14.8 Platelet Count 291 Mean Platelet Volume 7.9 Neutrophils (%) (Auto) 74.8 Lymphocytes (%) (Auto) 18.1 Monocytes (%) (Auto) 5.8 Eosinophils (%) (Auto) 0.8 Basophils (%) (Auto) 0.5 Neutrophils # (Auto) 6.7 Lymphocytes # (Auto) 1.6 Monocytes # (Auto) 0.5 Eosinophils # (Auto) 0.1 Basophils # (Auto) 0.0 CBC Comment AUTO DIFF Differential Comment AUTO DIFF CONFIRMED Prothrombin Time 10.5 Prothromb Time International Ratio 1.0 Activated Partial Thromboplast Time 24.3 Fibrinogen 405 Bedside Sodium 142 Bedside Potassium 4.3 Bedside Chloride 105 Bedside Blood Urea Nitrogen 41 Bedside Creatinine 2.3 Bedside Glucose 113 Total Creatine Kinase 99 Troponin I LESS THAN 0.02 Urine Color LIGHT-YELLOW Urine Turbidity CLEAR Urine pH 6.5 Urine Specific [place] 1.009 Urine Protein 100 Urine Glucose (UA) NEG Urine Ketones NEG Urine Occult Blood NEG Urine Nitrite NEG Urine Bilirubin NEG Urine Urobilinogen LESS THAN 2.0 Urine Leukocyte Esterase NEG Urine WBC LESS THAN 1 Urine Opiates Screen POS Urine Barbiturates Screen NEG Urine Amphetamines Screen NEG Urine Benzodiazepines Screen NEG Urine Cocaine Screen POS Urine Cannabinoids Screen NEG Result Diagram: 09/02/17 1330 Imaging Last Impressions Head CT 09/02/17 0000 Signed Impressions: CONCLUSION: Chronic small vessel ischemic and atrophic changes not significant ly changed. Chest X-Ray 09/02/17 0000 Signed Impressions: CONCLUSION: Negative examination. Caprini VTE Risk Assessment Caprini VTE Risk Assessment: Mod/High Risk (score >= 2) Caprini Risk Assessment Model Point Value = 1 Point Value = 2 Point Value = 3 Point Value = 5 Age 41-60 Minor surgery BMI > 25 kg/m2 Swollen legs Varicose veins or History of unexplained or recurrent spontaneous Oral contraceptives or hormone replacement Sepsis (< 1 month) Serious lung disease, including pneumonia (< 1 month) Abnormal pulmonary function Acute myocardial infarction Congestive heart failure (< 1 month) History of inflammatory bowel disease Medical patient at bed rest Age 61-74 Arthroscopic surgery Major open surgery (> 45 min) Laparoscopic surgery (> 45 min) Malignancy Confined to bed (> 72 hours) Immobilizing plaster cast Central venous access Age >= 75 History of VTE Family history of VTE Factor V Leiden Prothrombin [id number] Lupus anticoagulant Anticardiolipin antibodies Elevated serum homocysteine Heparin-induced thrombocytopenia Other congenital or acquired thrombophilia Stroke (< 1 month) Elective arthroplasty Hip, pelvis, or leg fracture Acute spinal cord injury (< 1 month) Prophylaxis Regimen Total Risk Factor Score Risk Level Prophylaxis Regimen 0-1 Low Early ambulation 2 Moderate Order ONE of the following: *Sequential Compression Device (SCD) *Heparin 5000 units SQ BID 3-4 Higher Order ONE of the following medications: *Heparin 5000 units SQ TID *Enoxaparin/Lovenox 40 mg SQ daily (WT < 150 kg, CrCl > 30 mL/min) *Enoxaparin/Lovenox 30 mg SQ daily (WT < 150 kg, CrCl > 10-29 mL/min) *Enoxaparin/Lovenox 30 mg SQ BID (WT < 150 kg, CrCl > 30 mL/min) AND/OR *Sequential Compression Device (SCD) 5 or more Highest Order ONE of the following medications: *Heparin 5000 units SQ TID (Preferred with Epidurals) *Enoxaparin/Lovenox 40 mg SQ daily (WT < 150 kg, CrCl > 30 mL/min) *Enoxaparin/Lovenox 30 mg SQ daily (WT < 150 kg, CrCl > 10-29 mL/min) *Enoxaparin/Lovenox 30 mg SQ BID (WT < 150 kg, CrCl > 30 mL/min) AND *Sequential Compression Device (SCD) Assessment and Plan Assessment and Plan This is a 62-year-old male with history of hypertension, recently diagnosed head and neck cancer presenting with left facial droop and right-sided weakness Likely ischemic left MCA stroke-we will check MRI and MRA of the brain, echocardiogram, carotid ultrasound, start aspirin. Neurology consulted. Consult physical therapy. Check lipid panel, neuro checks. Permissive hypertension for now Hypertension-restart nifedipine, Imdur, hydralazine, Norvasc, lisinopril Coronary artery disease-Imdur as above. Continue aspirin. Chronic renal failure-creatinine around baseline. Head and neck [id number] as outpatient DVT prophylaxis: SCDs for now, start pharmacological prophylaxis once cleared by neurology. Physician Certification 2 Midnight Certification Type: Admission for Inpatient Services Order for Inpatient Services The services are ordered in accordance with Medicare regulations or non- Medicare payer requirements, as applicable. In the case of services not specified as inpatient-only, they are appropriately provided as inpatient services in accordance with the 2-midnight benchmark. Estimated LOS (days): 2 days is the estimated time the patient will need to remain in the hospital, assuming treatment plan goals are met and no additional complications. Post-Hospital Plan: [facility] Kali Dykes MD Sep 02, 2017 16:11
--- NOTE | 2017-09-02 16:27 | PD ---
HPI Chief Complaint: Stroke Alert Time Seen by Provider: 13:32 Travel History International Travel<30 days: No Contact w/Intl Traveler<30days: No Traveled to known affect area: No History of Present Illness HPI This is a 62-year-old male with a history of head neck cancer, renal insufficiency, who presents here as a stroke alert. Patient was last seen normal at 8 AM. Patient reports that he was brushing his teeth and getting ready to go to the oncology center. He states that at that time he noted a left -sided facial droop with slurred speech. He also reported right sided upper and lower extremity weakness. Patient had previous mild stroke in the past. He could not elaborate what was affected. He reports headache. He denies any nausea or vomiting. Stroke scale was less than 4. There are no other complaints at time of examination. PFSH Past Medical History Arthritis: Yes Asthma: No Autoimmune Disease: No Blood Disorders: No Anxiety: Yes Depression: No Heart Rhythm Problems: No Cancer: Yes (hx PROSTATE, head and neck and throat Ca ) Cardiovascular Problems: Yes High Cholesterol: No Chemotherapy: Yes (with prostate ) Chest Pain: Yes Congestive Heart Failure: No COPD: No Cerebrovascular Accident: Yes (X3) Coronary Artery Disease: Yes Diabetes: No Diminished Hearing: No Endocrine: No Gastrointestinal Disorders: Yes GERD: No Genitourinary: No Headaches: No Hepatitis: Yes (HEP C) Hiatal Hernia: No Heparin Induced Thrombocytopen: No Hypertension: Yes Immune Disorder: Yes (HEP C) Implanted Vascular Access Dvce: No Kidney Stones: No Musculoskeletal: Yes Neurologic: Yes Psychiatric: Yes Reproductive: No Respiratory: Yes Immunizations Current: No Migraines: No Myocardial Infarction: Yes (2007) Radiation Therapy: Yes Renal Failure: No Seizures: No Sickle Cell Disease: No Sleep Apnea: Yes Thyroid Disease: No Ulcer: Yes Past Surgical History Abdominal Surgery: No AICD: No Appendectomy: No Arteriovenous Shunt: No Cardiac Surgery: No Cholecystectomy: No Ear Surgery: No Endocrine Surgery: No Eye Surgery: Yes Genitourinary Surgery: No Gynecologic Surgery: No Insulin Pump: No Joint Replacement: Yes (L SHOULDER) Neurologic Surgery: Yes (NECK FUSION ) Oral Surgery: Yes Pacemaker: No Thoracic Surgery: Yes (RIGHT UPPER ARM ARTERY SURGERY) Other Surgery: Yes (PLASTIC SURGERY TO HEAD AND FACE ,) Social History Alcohol Use: No Tobacco Use: No (quit ) Substance Use: No Allergies-Medications (Allergen,Severity, Reaction): Coded Allergies: simvastatin (Unverified Adverse Reaction, Severe, Joint Pain, 09/02/17) COULD NOT TOLERATE STATINS Reported Meds & Prescriptions Reported Meds & Active Scripts Active Dilaudid (Hydromorphone HCl) 8 Mg Tab 8 Mg PO Q6H PRN Hydromorphone (Hydromorphone HCl) 8 Mg Tab 8 Mg PO Q6H PRN Dilaudid (Hydromorphone HCl) 8 Mg Tab 8 Mg PO Q6H PRN Cancer related pain management. Nifedipine ER 24 HR (Nifedipine) 60 Mg Tab 60 Mg PO Q12HR Zofran (Ondansetron HCl) 8 Mg Tab 8 Mg PO TID PRN Senna-Lax (Sennosides) 8.6 Mg Tab 17.2 Mg PO Q12H PRN Nitrostat SL (Nitroglycerin) 0.4 Mg Subl 0.4 Mg SL Q5M PRN Isosorbide Mononitrate ER (Isosorbide Mononitrate) 30 Mg Dhruv 30 Mg PO DAILY@07 Hydralazine HCl 50 Mg Tablet 100 Mg PO Q8HR Lipitor (Atorvastatin Calcium) 10 Mg Tab 10 Mg PO HS Lisinopril 10 Mg Tab 10 Mg PO DAILY Reported Hydrocodone-Acetaminophen 10-325 mg Tab 1 Tab PO Q4H PRN Amlodipine (Amlodipine Besylate) 10 Mg Tab 10 Mg PO DAILY Review of Systems Except as stated in HPI: all other systems reviewed are Neg General / Constitutional: No: Fever, Chills Eyes: No: Blurred Vision, Pain HENT: Positive: Headaches, No: Lightheadedness, Neck Pain Cardiovascular: No: Chest Pain or Discomfort, Palpitations Respiratory: No: Cough, Shortness of Breath Gastrointestinal: No: Nausea, Vomiting, Abdominal Pain Genitourinary: No: Dysuria Musculoskeletal: Positive: Weakness, No: Pain Neurologic: Positive: Weakness (Right upper and lower extremity right upper and right lower extremity), Focal Abnormalities (Right upper and right lower extremity), Headache, Slurred Speech (Dysarthria), No: Paresthesia, Sensory Disturbance Psychiatric: Positive: Other (PTSD), No: Substance Abuse (Denies) Physical Exam Narrative GENERAL: Well-developed well-nourished male in no acute respiratory distress. Patient is awake answering questions. SKIN: Focused skin assessment warm/dry. HEAD: Atraumatic. Normocephalic. EYES: No scleral icterus. No injection or drainage. ENT: No nasal bleeding or discharge. Mucous membranes pink and moist. NECK: Trachea midline. No JVD. CARDIOVASCULAR: Regular rate and rhythm. No murmur appreciated. RESPIRATORY: No accessory muscle use. Clear to auscultation. Breath sounds equal bilaterally. GASTROINTESTINAL: Abdomen soft, non-tender, nondistended. MUSCULOSKELETAL: No obvious deformities. No clubbing. No cyanosis. No edema. NEUROLOGICAL: Awake and alert. Slight left-sided facial droop. There is some mild dysarthria. Patient has 4+ out of 5 strength in his right upper and right lower extremity. 5 out of 5 in his left upper and left lower extremity. PSYCHIATRIC: Appropriate mood and affect; insight and judgment normal. Data Data Last Documented VS Vital Signs Date Time Temp Pulse Resp B/P (MAP) Pulse Ox O2 Delivery O2 Flow Rate FiO2 09/02/17 14:28 94 21 09/02/17 14:00 Room Air 09/02/17 13:26 98.6 75 18 203/97 (132) Orders Orders Diet Npo (09/02/17 Lunch) Activity Bed Rest (09/02/17 ) Electrocardiogram (09/02/17 ) I-Stat Profile (09/02/17 13:32) Prothrombin Time / Inr (Pt) (09/02/17 13:32) Act Partial Throm Time (Ptt) (09/02/17 13:32) Complete Blood Count With Diff (09/02/17 13:32) Fibrinogen (09/02/17 13:32) Creatine Kinase (Cpk) (09/02/17 13:32) Troponin I (09/02/17 13:32) Ua Includes Microscopic (09/02/17 13:32) Drug Screen, Random Urine (09/02/17 13:32) Type And Screen (09/02/17 13:32) Ct Brain W/O Iv Contrast(Rout) (09/02/17 ) Chest, Single Ap (09/02/17 ) Consult Neurology (09/02/17 ) Blood Glucose (09/02/17 13:32) Ecg Monitoring (09/02/17 13:32) Neuro Checks Q2HX12,Q4H (09/02/17 13:32) Nursing Bedside Swallow Assess .ONCE (09/02/17 13:32) Iv Access Insert/Monitor (09/02/17 13:32) NPO (09/02/17 13:32) Oximetry (09/02/17 13:32) Resp Oxygen Nc Stroke (09/02/17 ) Sodium Chlor 0.9% 1000 Ml Inj (Ns 1000 M (09/02/17 13:32) Cath For Specimen (09/02/17 13:32) Vascular Access Team Consult/P PRN (09/02/17 14:11) Vascular Poc Ultrasound (09/02/17 ) Prochlorperazine Inj (Compazine Inj) (09/02/17 14:15) Morphine Inj (Morphine Inj) (09/02/17 14:15) Admit Order (Ed Use Only) (09/02/17 15:15) Labs Laboratory Tests Test 09/02/17 13:30 White Blood Count 8.9 TH/MM3 Red Blood Count 3.63 MIL/MM3 Hemoglobin 10.5 GM/DL Bedside Hemoglobin 10.2 G/DL Hematocrit 31.1 % Bedside Hematocrit 30.0 % Mean Corpuscular Volume 85.5 FL Mean Corpuscular Hemoglobin 28.9 PG Mean Corpuscular Hemoglobin Concent 33.8 % Red Cell Distribution Width 14.8 % Platelet Count 291 TH/MM3 Mean Platelet Volume 7.9 FL Neutrophils (%) (Auto) 74.8 % Lymphocytes (%) (Auto) 18.1 % Monocytes (%) (Auto) 5.8 % Eosinophils (%) (Auto) 0.8 % Basophils (%) (Auto) 0.5 % Neutrophils # (Auto) 6.7 TH/MM3 Lymphocytes # (Auto) 1.6 TH/MM3 Monocytes # (Auto) 0.5 TH/MM3 Eosinophils # (Auto) 0.1 TH/MM3 Basophils # (Auto) 0.0 TH/MM3 CBC Comment AUTO DIFF Differential Comment AUTO DIFF CONFIRMED Prothrombin Time 10.5 SEC Prothromb Time International Ratio 1.0 RATIO Activated Partial Thromboplast Time 24.3 SEC Fibrinogen 405 mg/dL Bedside Sodium 142 MMOL/L Bedside Potassium 4.3 MMOL/L Bedside Chloride 105 MMOL/L Bedside Blood Urea Nitrogen 41 MG/DL Bedside Creatinine 2.3 MG/DL Bedside Glucose 113 MG/DL Total Creatine Kinase 99 U/L Troponin I LESS THAN 0.02 NG/ML MDM Medical Decision Making Medical Screen Exam Complete: Yes Emergency Medical Condition: Yes Medical Record Reviewed: Yes Differential Diagnosis CVA versus TIA versus metastatic brain lesion versus metabolic derangement. Narrative Course 62-year-old male history of head neck cancer, presents here with left-sided facial droop, dysarthria, right upper and right lower extremity mild weakness. The patient is out of the TPA window. CT scan of the brain shows no evidence of acute process. The patient has elevated creatinine of 2.1. Therefore a CTA brain could not be performed. Case was discussed with Dr. Joshi, on-call neurologist for stroke, who agrees patient is not a candidate. He will see him in consultation. Case was also discussed with Dr. Dykes, [facility] Hospitalist, who admit the patient to his service. Diagnosis Primary Impression: CVA versus TIA Additional Impressions: Head and neck cancer Hypertension SELIN (acute kidney injury) Cephalgia Admitting Information Admitting Physician Requests: Admit Raman Ravi MD Sep 02, 2017 16:27
--- NOTE | 2017-09-02 16:58 | PD.CONS ---
History of Present Illness Service Neurology Consult Requested By ER MD for stroke alert Primary Care Physician Unknown History of Present Illness 62/M with h/o HTN, Prostate CA, CAD, CKD, prostate CA in remission for 12 years and head & neck CA diagnosed about 1.5 mos ago presenting as a stroke alert. Symptoms occurred 5 hours prior to arrival to the ER. Right facial weakness and right arm and leg weakness. Denies any previous history of stroke or TIA although he states he had a "stress reaction" that caused some weakness but resolved in the past CT brain scan no acute lesion or hemorrhage. Admits to quitting tobacco use about a month ago. Denies being on any anti-platelets or anticoagulants Past Family Social History Past Medical History Anxiety, Prostate CA, HTN, CAD, Hepatitis C, Tobacco Abuse and Head & Neck CA- followed by hematology oncology at [facility] Past Surgical History Left shoulder surgery Allergies: Coded Allergies: simvastatin (Unverified Adverse Reaction, Severe, Joint Pain, 09/02/17) COULD NOT TOLERATE STATINS Family History No h/o DM or CAD Social History Negative for alcohol or drugs. Smokes 1ppd. Review of Systems All other ROS: ROS reviewed as documented in chart Past Family Social History Allergies: Coded Allergies: simvastatin (Unverified Adverse Reaction, Severe, Joint Pain, 09/02/17) COULD NOT TOLERATE STATINS Active Ordered Medications Current Medications Medications (Trade) Dose Ordered Sig/James Route Start Time Stop Time Status Last Admin Sodium Chloride 1,000 ml @ 70 mls/hr [id number] ONCE IV 09/02/17 13:32 09/03/17 03:49 09/02/17 13:54 Exam I&O / VS Vital Signs Date Time Temp Pulse Resp B/P (MAP) Pulse Ox O2 Delivery O2 Flow Rate FiO2 09/02/17 15:48 66 16 156/74 (101) 97 09/02/17 14:28 94 21 09/02/17 14:00 97 Room Air 09/02/17 14:00 97 Room Air 09/02/17 13:26 98.6 75 18 203/97 (132) 98 General: Alert and Oriented, No acute distress Eye: EOMI Respiratory: Non-labored respirations Cardiology: Normal rate Neurologic: Alert, Oriented Psychiatric: Cooperative Exam Comments Awake alert oriented 3 mildly anxious, mild right facial weakness mild expressive aphasia, extraocular movements intact visual welch full mild right hemiparesis 3-4 out of 5 slight ankle edema Review/Management Diagnosis/Plan: (1) Acute ischemic left MCA stroke ICD Codes: I63.512 - Cerebral infarction due to unspecified occlusion or stenosis of left middle cerebral artery Status: Acute Plan: Exam suspicious for left cortical spinal tract ischemic infarct Risk factors include chronic tobacco use, potential hypercoagulable state from his head neck cancer Recommendations MRI MRA of the brain Echo, cardiac carotid ultrasound Aspirin daily PT, ST, OT evaluation Follow-up lipids Follow exam Will likely require inpatient stroke rehabilitation (2) Hypertension ICD Codes: I10 - Essential (primary) hypertension Status: Chronic (3) Head and neck cancer ICD Codes: C76.0 - Malignant neoplasm of head, face and neck Status: Chronic Plan: Followed by hematology oncology (4) Hypertensive urgency ICD Codes: I16.0 - Hypertensive urgency Status: Resolved Plan: Blood pressure improved Problem Qualifiers (1) Hypertension: Qualified Codes: I10 - Essential (primary) hypertension Rosalino Barfield MD Sep 02, 2017 16:58
[2017-09-02] MEDS ORDERED: BISACODYL 10 MG SUPP RECTAL PRN (17:00)
[2017-09-02] MEDS ORDERED: NALOXONE HCL 0.4 MG/ML AMP IV PUSH PRN (17:00)
[2017-09-02] MEDS ORDERED: SODIUM CHLORIDE 0.9% FLUSH 10 ML FLUSH IV FLUSH PRN (17:00)
[2017-09-02] MEDS ORDERED: LACTULOSE SYRUP 20 GM/30 ML CUP PO PRN (17:00)
[2017-09-02] MEDS ORDERED: MAGNESIUM HYDROXIDE SUSP 30 ML CUP PO PRN (17:00)
[2017-09-02] MEDS ORDERED: SENNOSIDES 8.6 MG TAB PO PRN ×2 (17:00→19:00)
[2017-09-02 18:00] LABS: CHOLESTEROL 136 MG/DL (120-200); TRIGLYCERIDES 79 MG/DL (42-150)
[2017-09-02 18:25] LABS: CHOLESTEROL/ HDL RATIO 2.42 RATIO; LDL CHOLESTEROL 64 MG/DL (0-99)
[2017-09-02] MEDS ORDERED: ACETAMINOPHEN/HYDROcodone 325 MG/10 MG TAB PO PRN (19:00)
[2017-09-02] MEDS ORDERED: PILL SPLITTER OTHER PRN (19:00)
[2017-09-02] MEDS ORDERED: ONDANSETRON ODT 4 MG TAB PO PRN (19:00)
[2017-09-02] MEDS: LISINOPRIL 10 MG TAB PO SCH (19:56)
[2017-09-02 20:00] VITALS: BP 191/86; PULSE 59; RESP 17; TEMP 97.6; O2SAT 96
--- NOTE | 2017-09-02 21:36 | RADRPT ---
EXAM DATE: 09/02/2017 9:29 PM EDT AGE/SEX: 62 years / Male INDICATIONS: CVA. CLINICAL DATA: This is the patient's initial encounter. Patient reports that signs and symptoms have been present for 1 day and indicates a pain score of 0/10. MEDICAL/SURGICAL HISTORY: Hypertension. Carcinoma, prostatic. Renal failure, chronic. Head a nd neck cancer. . Neck surgery. [place] [facility] [place]19/2016. [facility] [place], 09/02/2017. [facility] [place], 08/07/2017. . TECHNIQUE: Multiplanar, multisequence examination of the brain was performed without contrast. FINDINGS: Cerebrum: There is mild generalized atrophy. A few punctate areas of susceptibility artifact are see n bilaterally, stable from the prior study. No evidence of midline shift, mass lesion, hemorrhage or acute infarction. No extraaxial fluid collections are seen. The pituitary gland and suprasellar ci joel are normal in configuration. White Matter: There is severe periventricular and subcortical white matter signal change bilaterally , stable from the prior study Posterior Fossa: The cerebellum and brainstem demonstrate no acute finding. The 4th ventricle is mid line. The cerebellopontine angle is unremarkable. The cerebellar tonsils are normal in position. Diffusion Imaging: No focal areas of restricted diffusion are seen. No evidence of acute infarction . Extracranial: There is atelectasis and opacification of the right maxillary sinus, stable from the p rior study. CONCLUSION: 1. Stable brain MRI without an acute finding identified. There are no findings to indicate recent is chemia. 2. There is mild generalized atrophy and severe chronic white matter changes likely representing chr onic microvascular ischemia. Electronically signed by: Jaylan Mayer MD 09/02/2017 9:35 PM EDT
--- NOTE | 2017-09-02 21:39 | RADRPT ---
EXAM DATE: 09/02/2017 9:27 PM EDT AGE/SEX: 62 years / Male INDICATIONS: CVA. CLINICAL DATA: This is the patient's initial encounter. Patient reports that signs and symptoms have been present for 1 day and indicates a pain score of 0/10. MEDICAL/SURGICAL HISTORY: Hypertension. Carcinoma, prostatic. Renal failure, chronic. Head a nd neck cancer. . Neck surgery. COMPAR[place]: [facility] [place], 12/19/2016. . TECHNIQUE: 3D [id number] MRA was performed. Source images, multiplanar STS MIP, and 3D volum e MIP reconstructions were reviewed. FINDINGS: Anterior circulation: Internal carotid arteries demonstrate no significant narrowing or abnormality. A1 segments are symmetric. The ophthalmic arteries are visualized bilaterally. The anterior cerebral arteries and middle cerebral arteries demonstrate symmetric flow-related enhancement. No aneurysm or high-grade stenosis is visualized. Posterior circulation: The vertebral arteries are codominant. Basilar artery is within normal limits. No aneurysm is seen. Posterior cerebral arteries demonstrate symmetric flow related enhancement. CONCLUSION: No intracranial vascular abnormality is identified. Electronically signed by: Jaylan Mayer MD 09/02/2017 9:38 PM EDT
[2017-09-02] MEDS: NIFEdipine 60 MG SUSTAINED RELEASE TAB PO SCH (22:02)
[2017-09-02] MEDS: ATORVASTATIN 10 MG TAB PO SCH (22:02)
[2017-09-02] MEDS: HYDROmorphone HCL 2 MG TAB PO PRN (22:03)
[2017-09-02] MEDS: SODIUM CHLORIDE 0.9% FLUSH 10 ML FLUSH IV FLUSH SCH (22:03)
[2017-09-02] MEDS: hydrALAZINE HCL 50 MG TAB PO SCH (22:05)
[2017-09-02] MEDS: DOCUSATE SODIUM 50 MG/SENNA 8.6 MG TAB PO SCH (22:05)
[2017-09-02] MEDS: HEPARIN SODIUM - SQ 10,000 UNITS/ML VIAL SQ SCH (22:05)
[2017-09-02 22:10] VITALS: PULSE 56
[2017-09-03] VITALS (8 sets, daily range): BP systolic 120–192; BP diastolic 70–93; PULSE 57–75; RESP 16–18; TEMP 97.1–98.3; O2SAT 96–98
[2017-09-03] MEDS: ISOSORBIDE MONONITRATE 30 MG CR TAB (IMDUR) PO SCH (06:17)
[2017-09-03] MEDS: hydrALAZINE HCL 50 MG TAB PO SCH ×2 (06:17→22:19)
[2017-09-03] MEDS: HYDROmorphone HCL 2 MG TAB PO PRN ×2 (06:19→20:20)
--- NOTE | 2017-09-03 07:55 | HHI.PR ---
Review/Management Diagnosis/Plan: (1) Acute ischemic left MCA stroke ICD Codes: I63.512 - Cerebral infarction due to unspecified occlusion or stenosis of left middle cerebral artery Status: Acute Plan: Exam suspicious for left cortical spinal tract ischemic infarct Risk factors include chronic tobacco use, potential hypercoagulable state from his head neck cancer Recommendations (2) Hypertension ICD Codes: I10 - Essential (primary) hypertension Status: Chronic (3) Head and neck cancer ICD Codes: C76.0 - Malignant neoplasm of head, face and neck Status: Chronic Plan: Followed by hematology oncology (4) Hypertensive urgency ICD Codes: I16.0 - Hypertensive urgency Status: Resolved Plan: Blood pressure improved Subjective Subjective Comments No acute events reported No headache No chest pain No dyspnea Active Medications Current Medications Medications (Trade) Dose Ordered Sig/James Route Start Time Stop Time Status Last Admin (NS Flush) 2 ml UNSCH PRN IV FLUSH 09/02/17 17:00 (NS Flush) 2 ml BID IV FLUSH 09/02/17 21:00 09/02/17 22:03 (Narcan Inj) 0.4 mg UNSCH PRN IV PUSH 09/02/17 17:00 (Mary Lou-Colace) 1 tab BID PO 09/02/17 21:00 (Milk Of Magnesia Liq) 30 ml Q12H PRN PO 09/02/17 17:00 (Senokot) 17.2 mg Q12H PRN PO 09/02/17 17:00 (Dulcolax Supp) 10 mg DAILY PRN RECTAL 09/02/17 17:00 (Lactulose Liq) 30 ml DAILY PRN PO 09/02/17 17:00 (Heparin Inj) 5,000 units BID SQ 09/02/17 21:00 09/02/17 22:05 (Aspirin Supp) 300 mg DAILY RECTAL 09/02/17 17:00 (Norvasc) 10 mg DAILY PO 09/02/17 19:00 09/02/17 19:56 (Lipitor) 10 mg HS PO 09/02/17 21:00 09/02/17 22:02 (Apresoline) 100 mg Q8HR PO 09/02/17 22:00 09/03/17 06:17 (Baxter 10-325 Mg) 1 tab Q4H PRN PO 09/02/17 19:00 (Imdur) 30 mg DAILY@07 PO 09/03/17 07:00 09/03/17 06:17 (Prinivil) 10 mg DAILY PO 09/02/17 19:00 09/02/17 19:56 (Procardia Xl) 60 mg Q12HR PO 09/02/17 21:00 09/02/17 22:02 (Senokot) 17.2 mg Q12H PRN PO 09/02/17 19:00 (Zofran Odt) 8 mg TID PRN PO 09/02/17 19:00 (Dilaudid) 1 mg Q6H PRN PO 09/02/17 19:00 09/03/17 06:19 (Pill Splitter) 1 ea UNSCH PRN OTHER 09/02/17 19:00 Allergies Allergies Coded Allergies simvastatin (Unverified Adverse Reaction, Severe, Joint Pain, 09/02/17) Review of Systems All other ROS: ROS reviewed as documented in chart Exam I&O / VS Vital Signs Date Time Temp Pulse Resp B/P (MAP) Pulse Ox O2 Delivery O2 Flow Rate FiO2 09/03/17 04:00 98.0 64 17 143/72 (95) 96 09/03/17 04:00 65 09/03/17 00:00 97.1 64 18 192/93 (126) 98 09/03/17 00:00 57 09/02/17 22:10 56 09/02/17 20:00 97.6 59 17 191/86 (121) 96 09/02/17 15:48 66 16 156/74 (101) 97 09/02/17 14:28 94 21 09/02/17 14:00 97 Room Air 09/02/17 14:00 97 Room Air 09/02/17 13:26 98.6 75 18 203/97 (132) 98 General: Alert and Oriented, No acute distress Eye: EOMI Respiratory: Non-labored respirations Cardiology: Normal rate Neurologic: Alert, Oriented Psychiatric: Cooperative Exam Comments Awake alert oriented 3 mildly anxious, mild right facial weakness mild expressive aphasia, extraocular movements intact visual welch full mild right hemiparesis 3-4 out of 5 slight ankle edema Objective Micro and Labs Laboratory Tests Test 09/02/17 13:30 09/02/17 15:45 White Blood Count 8.9 Red Blood Count 3.63 Hemoglobin 10.5 Bedside Hemoglobin 10.2 Hematocrit 31.1 Bedside Hematocrit 30.0 Mean Corpuscular Volume 85.5 Mean Corpuscular Hemoglobin 28.9 Mean Corpuscular Hemoglobin Concent 33.8 Red Cell Distribution Width 14.8 Platelet Count 291 Mean Platelet Volume 7.9 Neutrophils (%) (Auto) 74.8 Lymphocytes (%) (Auto) 18.1 Monocytes (%) (Auto) 5.8 Eosinophils (%) (Auto) 0.8 Basophils (%) (Auto) 0.5 Neutrophils # (Auto) 6.7 Lymphocytes # (Auto) 1.6 Monocytes # (Auto) 0.5 Eosinophils # (Auto) 0.1 Basophils # (Auto) 0.0 CBC Comment AUTO DIFF Differential Comment AUTO DIFF CONFIRMED Prothrombin Time 10.5 Prothromb Time International Ratio 1.0 Activated Partial Thromboplast Time 24.3 Fibrinogen 405 Bedside Sodium 142 Bedside Potassium 4.3 Bedside Chloride 105 Bedside Blood Urea Nitrogen 41 Bedside Creatinine 2.3 Bedside Glucose 113 Total Creatine Kinase 99 Troponin I LESS THAN 0.02 Triglycerides Level 79 Cholesterol Level 136 LDL Cholesterol 64 HDL Cholesterol 56.0 Cholesterol/HDL Ratio 2.42 Vitamin B12 Level 681 Thyroid Stimulating Hormone 3rd Gen 0.409 Urine Color LIGHT-YELLOW Urine Turbidity CLEAR Urine pH 6.5 Urine Specific Renner 1.009 Urine Protein 100 Urine Glucose (UA) NEG Urine Ketones NEG Urine Occult Blood NEG Urine Nitrite NEG Urine Bilirubin NEG Urine Urobilinogen LESS THAN 2.0 Urine Leukocyte Esterase NEG Urine WBC LESS THAN 1 Urine Opiates Screen POS Urine Barbiturates Screen NEG Urine Amphetamines Screen NEG Urine Benzodiazepines Screen NEG Urine Cocaine Screen POS Urine Cannabinoids Screen NEG Problem Qualifiers (1) Hypertension: Qualified Codes: I10 - Essential (primary) hypertension Rosalino Barfield MD Sep 03, 2017 07:55
--- NOTE | 2017-09-03 08:19 | HHI.PR ---
Review/Management Diagnosis/Plan: (1) Acute ischemic left MCA stroke ICD Codes: I63.512 - Cerebral infarction due to unspecified occlusion or stenosis of left middle cerebral artery Status: Acute Plan: Probable left hemispheric TIA Risk factors include chronic tobacco use, potential hypercoagulable state from his head neck cancer MRI brain scan negative for acute stroke; MRA brain no significant vaso- occlusive disease UDS positive for cocaine Recommendations Spell may been related to cocaine due to cerebral vasoconstriction Discussed discontinuing illicit drug use with the patient Carotid ultrasound pending 2D echo Continue antiplatelets If echo carotid ultrasound unremarkable can be discharged from neurologic standpoint followed up outpatient setting Is to follow-up with his hematology oncology doctor and worked up for hypercoagulable state inpatient versus out defer that to the medical service Discussed with RN (2) Hypertension ICD Codes: I10 - Essential (primary) hypertension Status: Chronic (3) Head and neck cancer ICD Codes: C76.0 - Malignant neoplasm of head, face and neck Status: Chronic Plan: Followed by hematology oncology (4) Hypertensive urgency ICD Codes: I16.0 - Hypertensive urgency Status: Resolved Plan: Blood pressure improved Subjective Subjective Comments No acute events reported No headache No chest pain No dyspnea Active Medications Current Medications Medications (Trade) Dose Ordered Sig/James Route Start Time Stop Time Status Last Admin (NS Flush) 2 ml UNSCH PRN IV FLUSH 09/02/17 17:00 (NS Flush) 2 ml BID IV FLUSH 09/02/17 21:00 09/02/17 22:03 (Narcan Inj) 0.4 mg UNSCH PRN IV PUSH 09/02/17 17:00 (Mary Lou-Colace) 1 tab BID PO 09/02/17 21:00 (Milk Of Magnesia Liq) 30 ml Q12H PRN PO 09/02/17 17:00 (Senokot) 17.2 mg Q12H PRN PO 09/02/17 17:00 (Dulcolax Supp) 10 mg DAILY PRN RECTAL 09/02/17 17:00 (Lactulose Liq) 30 ml DAILY PRN PO 09/02/17 17:00 (Heparin Inj) 5,000 units BID SQ 09/02/17 21:00 09/02/17 22:05 (Aspirin Supp) 300 mg DAILY RECTAL 09/02/17 17:00 (Norvasc) 10 mg DAILY PO 09/02/17 19:00 09/02/17 19:56 (Lipitor) 10 mg HS PO 09/02/17 21:00 09/02/17 22:02 (Apresoline) 100 mg Q8HR PO 09/02/17 22:00 09/03/17 06:17 (Woodbury 10-325 Mg) 1 tab Q4H PRN PO 09/02/17 19:00 (Imdur) 30 mg DAILY@07 PO 09/03/17 07:00 09/03/17 06:17 (Prinivil) 10 mg DAILY PO 09/02/17 19:00 09/02/17 19:56 (Procardia Xl) 60 mg Q12HR PO 09/02/17 21:00 09/02/17 22:02 (Senokot) 17.2 mg Q12H PRN PO 09/02/17 19:00 (Zofran Odt) 8 mg TID PRN PO 09/02/17 19:00 (Dilaudid) 1 mg Q6H PRN PO 09/02/17 19:00 09/03/17 06:19 (Pill Splitter) 1 ea UNSCH PRN OTHER 09/02/17 19:00 Allergies Allergies Coded Allergies simvastatin (Unverified Adverse Reaction, Severe, Joint Pain, 09/02/17) Review of Systems All other ROS: ROS reviewed as documented in chart Exam I&O / VS Vital Signs Date Time Temp Pulse Resp B/P (MAP) Pulse Ox O2 Delivery O2 Flow Rate FiO2 09/03/17 04:00 98.0 64 17 143/72 (95) 96 09/03/17 04:00 65 09/03/17 00:00 97.1 64 18 192/93 (126) 98 09/03/17 00:00 57 09/02/17 22:10 56 09/02/17 20:00 97.6 59 17 191/86 (121) 96 09/02/17 15:48 66 16 156/74 (101) 97 09/02/17 14:28 94 21 09/02/17 14:00 97 Room Air 09/02/17 14:00 97 Room Air 09/02/17 13:26 98.6 75 18 203/97 (132) 98 General: Alert and Oriented, No acute distress Eye: EOMI Respiratory: Non-labored respirations Cardiology: Normal rate Neurologic: Alert, Oriented Psychiatric: Cooperative Exam Comments Awake alert oriented 3 mildly anxious, speech clear fluent slight reduced right nasolabial fold tongue midline visual welch full, strength 5 out of 5 upper lower limbs no pronator drift today Objective Micro and Labs Laboratory Tests Test 09/02/17 13:30 09/02/17 15:45 White Blood Count 8.9 Red Blood Count 3.63 Hemoglobin 10.5 Bedside Hemoglobin 10.2 Hematocrit 31.1 Bedside Hematocrit 30.0 Mean Corpuscular Volume 85.5 Mean Corpuscular Hemoglobin 28.9 Mean Corpuscular Hemoglobin Concent 33.8 Red Cell Distribution Width 14.8 Platelet Count 291 Mean Platelet Volume 7.9 Neutrophils (%) (Auto) 74.8 Lymphocytes (%) (Auto) 18.1 Monocytes (%) (Auto) 5.8 Eosinophils (%) (Auto) 0.8 Basophils (%) (Auto) 0.5 Neutrophils # (Auto) 6.7 Lymphocytes # (Auto) 1.6 Monocytes # (Auto) 0.5 Eosinophils # (Auto) 0.1 Basophils # (Auto) 0.0 CBC Comment AUTO DIFF Differential Comment AUTO DIFF CONFIRMED Prothrombin Time 10.5 Prothromb Time International Ratio 1.0 Activated Partial Thromboplast Time 24.3 Fibrinogen 405 Bedside Sodium 142 Bedside Potassium 4.3 Bedside Chloride 105 Bedside Blood Urea Nitrogen 41 Bedside Creatinine 2.3 Bedside Glucose 113 Total Creatine Kinase 99 Troponin I LESS THAN 0.02 Triglycerides Level 79 Cholesterol Level 136 LDL Cholesterol 64 HDL Cholesterol 56.0 Cholesterol/HDL Ratio 2.42 Vitamin B12 Level 681 Thyroid Stimulating Hormone 3rd Gen 0.409 Urine Color LIGHT-YELLOW Urine Turbidity CLEAR Urine pH 6.5 Urine Specific Nancy 1.009 Urine Protein 100 Urine Glucose (UA) NEG Urine Ketones NEG Urine Occult Blood NEG Urine Nitrite NEG Urine Bilirubin NEG Urine Urobilinogen LESS THAN 2.0 Urine Leukocyte Esterase NEG Urine WBC LESS THAN 1 Urine Opiates Screen POS Urine Barbiturates Screen NEG Urine Amphetamines Screen NEG Urine Benzodiazepines Screen NEG Urine Cocaine Screen POS Urine Cannabinoids Screen NEG Problem Qualifiers (1) Hypertension: Qualified Codes: I10 - Essential (primary) hypertension Rosalino Barfield MD Sep 03, 2017 08:18
[2017-09-03] MEDS: SODIUM CHLORIDE 0.9% FLUSH 10 ML FLUSH IV FLUSH SCH ×2 (09:00→20:22)
[2017-09-03] MEDS: HEPARIN SODIUM - SQ 10,000 UNITS/ML VIAL SQ SCH ×2 (09:46→20:20)
[2017-09-03] MEDS: NIFEdipine 60 MG SUSTAINED RELEASE TAB PO SCH ×2 (09:47→20:19)
[2017-09-03] MEDS: ASPIRIN 300 MG SUPP RECTAL SCH (09:47)
[2017-09-03] MEDS: DOCUSATE SODIUM 50 MG/SENNA 8.6 MG TAB PO SCH ×2 (09:47→20:20)
[2017-09-03] MEDS: LISINOPRIL 10 MG TAB PO SCH (09:47)
--- NOTE | 2017-09-03 11:22 | RADRPT ---
EXAM DATE: 09/03/2017 9:56 AM EDT AGE/SEX: 62 years / Male INDICATIONS: Cerebrovascular accident. CLINICAL DATA: This is the patient's initial encounter. Patient reports that signs and symptoms have been present for 1 day and indicates a pain score of 0/10. MEDICAL/SURGICAL HISTORY: Hypertension. Hepatitis C. Myocardial infarction. Coronary artery di sease. Chest pain. Emphysema. Sleep apnea. Ulcer. Arthritis. Liver disease. Anxiety. Prostate cancer. Throat cancer. MRSA. . Neck fusion. Eye surgery. Oral surgery. Right upper arm surgery. Left should er replacement. Chemotherapy. Radiation therapy. Plastic surgery. [place] [facility] [place] [facility]. . VELOCITY PARAMETERS: ICA/CCA Ratio: Right 0.7 , Left 0.9 ICA: Right 62.0 cm/sec, Left 90.3 cm/sec CCA: Right 85.7 cm/sec, Left 100.3 cm/sec ECA: Right 132.2 cm/sec, Left 206.6 cm/sec Vertebral: Right 52.6 cm/sec antegrade, Left 40.0 cm/sec antegrade FINDINGS: Right Carotid: There is mild to moderate noncalcified plaque in the common carotid artery. Mild calc ified and noncalcified plaque is in the carotid bulb. No high-grade stenosis is visualized on graysca le imaging. The appearance is very similar to the prior ultrasound. Left Carotid: There is mild to moderate noncalcified plaque throughout the common carotid artery wit h mild calcified and noncalcified plaque in the carotid bulb. These findings are similar to the prior ultrasound. No high-grade stenosis is visualized on grayscale imaging. Other: None. CONCLUSION: 1. Right Internal Carotid Artery: Findings indicate <50% stenosis. 2. Left Internal Carotid Artery: Findings indicate <50% stenosis. Electronically signed by: Jaylan Mayer MD 09/03/2017 11:20 AM EDT
[2017-09-03 13:30] LABS: ALBUMIN 2.8 GM/DL (3.4-5.0); ALT (GPT) 65 U/L (12-78); AST (GOT) 49 U/L (15-37); BICARBONATE 28.7 MEQ/L (21.0-32.0); BLOOD UREA NITROGEN 30 MG/DL (7-18); CALCIUM 8.4 MG/DL (8.5-10.1); CHLORIDE 107 MEQ/L (98-107); CREATININE 1.94 MG/DL (0.60-1.30); GLOMERULAR FILTRATION RATE 35 ML/MIN (>89); GLUCOSE,RANDOM 84 MG/DL (74-106); SODIUM (NA) 142 MEQ/L (136-145)
[2017-09-03 13:32] LABS: ALKALINE PHOSPHATASE 131 U/L (45-117); TOTAL BILIRUBIN ADULT 0.3 MG/DL (0.2-1.0); TOTAL PROTEIN 7.2 GM/DL (6.4-8.2)
--- NOTE | 2017-09-03 15:09 | MG ---
cc: Marc Aguilar MD, PhD TEST NUMBER: [id number] TECHNIQUE: This is a 17-channel EEG. DESCRIPTION: Background rhythm symmetrical alpha frequency 8 Hz. Some slowing in the theta range during drowsiness. Occasional muscle artifact identified. No epileptiform activity seen. No lateralizing features seen. The patient was noted to have some foot twitching during the study, but there is no epileptiform activity, only muscle artifact. Photic resulted in a normal driving response. INTERPRETATION: Normal electroencephalogram. Marc Aguilar MD, PhD KRYSTEN/LOCO , 02:58 PM , 03:08 PM
--- NOTE | 2017-09-03 15:30 | HHI.PR ---
Subjective Remarks The patient was resting comfortably in bed. He said his feet swelling and speech difficulties have completely resolved. He has been ambulating and has been tolerating a diet. He says he is shocked to hear that his urine drug screen was positive for cocaine as he has not touched anything like that in 20 years. Discussed with nursing. Objective Vitals Vital Signs Date Time Temp Pulse Resp B/P (MAP) Pulse Ox O2 Delivery O2 Flow Rate FiO2 09/03/17 12:00 66 09/03/17 12:00 97.6 68 16 140/70 (93) 96 09/03/17 08:44 96 21 09/03/17 08:00 98.2 73 18 120/77 (91) 97 09/03/17 07:30 71 09/03/17 04:00 98.0 64 17 143/72 (95) 96 09/03/17 04:00 65 09/03/17 00:00 97.1 64 18 192/93 (126) 98 09/03/17 00:00 57 09/02/17 22:10 56 09/02/17 20:00 97.6 59 17 191/86 (121) 96 09/02/17 15:48 66 16 156/74 (101) 97 I/O 09/02/17 09/02/17 09/02/17 09/03/17 09/03/17 09/03/17 07:00 15:00 23:00 07:00 15:00 23:00 Intake Total 400 ml Balance 400 ml Intake Oral 400 ml # Voids 2 Result Diagram: 09/02/17 1330 09/03/17 1225 Imaging Last Impressions Carotid Artery Ultrasound 09/03/17 0000 Signed Impressions: CONCLUSION: 1. Right Internal Carotid Artery: Findings indicate <50% stenosis. 2. Left Internal Carotid Artery: Findings indicate <50% stenosis. Head Magnetic Resonance Angiography 09/02/17 0000 Signed Impressions: CONCLUSION: No intracranial vascular abnormality is identified. Head CT 09/02/17 0000 Signed Impressions: CONCLUSION: Chronic small vessel ischemic and atrophic changes not significant ly changed. Chest X-Ray 09/02/17 0000 Signed Impressions: CONCLUSION: Negative examination. Brain MRI 09/02/17 0000 Signed Impressions: CONCLUSION: 1. Stable brain MRI without an acute finding identified. There are no findings to indicate recent ischemia. 2. There is mild generalized atrophy and severe chronic white matter changes l ikely representing chronic microvascular ischemia. Objective Remarks Not in distress PERRL, pink conjunctiva without injection, anicteric Nose without bleeding Positive for right cervical mass, hard, mildly tender Normal rate and regular rhythm, no murmurs gallops or rubs appreciated. Clear to auscultation and symmetric bilaterally, normal respiratory effort. Normal bowel sounds, soft, non-tender, nondistended, no guarding. Extremities without clubbing, cyanosis, 1+ edema. Alert awake and oriented 3, he is blind in the right eye. Normal speech. A/P Assessment and Plan This is a 62-year-old male with history of hypertension, recently diagnosed head and neck cancer presenting with left facial droop and right-sided weakness TIA MRI and MRA of the brain negative. Carotid ultrasound unremarkable. EEG normal. Neurology consult appreciated. - start aspirin. - physical therapy. - neuro checks. - follow echo results. - hypercoagulable work-up with oncologist. Hypertension Well controlled. - restart nifedipine, Imdur, hydralazine, Norvasc and lisinopril. Coronary artery disease No chest pain. - continue cardiac regimen. Chronic renal failure Creatinine around baseline. - avoid nephrotoxins. Head and neck cancer Currently undergoing chemo and radiation treatments. - follow-up as outpatient. DVT prophylaxis: heparin Discharge Planning Anticipate d/c home in [place] Ramirez DO Sep 03, 2017 15:30
--- NOTE | 2017-09-03 15:45 | EKG ---
Date Performed: 09/02/2017 Time Performed: 14:52:40 PTAGE: 62 years EKG: SINUS BRADYCARDIA MARKED LEFT AXIS DEVIATION RIGHT BUNDLE BRANCH BLOCK VOLTAGE CRITERIA FOR LVH ABNORMAL ECG Since the PREVIOUS TRACING , no significant change noted PREVIOUS TRACIN08/16/2017 22.08 DOCTOR: Eboni Maguire Interpretating Date/Time 09/03/2017 15:43:48
--- NOTE | 2017-09-03 17:43 | ECHRPT ---
Indication: CVA/TIA CONCLUSIONS The left ventricular systolic function is normal with an estimated ejection fraction in the range of 55-60%. Doppler parameters are consistent with impaired left ventricular relaxtion (grade 1 diastolic dysfun ction). Trace mitral valve regurgitation. There is trace tricuspid valve regurgitation. BP: / HR: Rhythm: MEASUREMENTS (Male / Female) Normal Values Technical Quality: 2D ECHO LV Diastolic Diameter PLAX 5.1 cm 4.2 - 5.9 / 3.9 - 5.3 cm LV Systolic Diameter PLAX 3.8 cm IVS Diastolic Thickness 1.3 cm 0.6 - 1.0 / 0.6 - 0.9 cm LVPW Diastolic Thickness 0.7 cm 0.6 - 1.0 / 0.6 - 0.9 cm LV Relative Wall Thickness 0.4 RV Internal Dim ED PLAX 1.8 cm DOPPLER Mitral E Point Velocity 56.3 cm/s Mitral A Point Velocity 83.9 cm/s Mitral E to A Ratio 0.7 TR Peak Velocity 179.0 cm/s TR Peak Gradient 12.8 mmHg Right Atrial Pressure 5.0 mmHg Pulmonary Artery Systolic Pressu 17.8 mmHg Right Ventricular Systolic Press 17.8 mmHg FINDINGS LEFT VENTRICLE Normal left ventricular size. There is assymetric septal hypertrophy. The left ventricular systolic function is normal with an estimated ejection fraction in the range of 55-60%. No regional wall motion abnormalities are present. Doppler parameters are consistent with impaired left ventricular relaxtion (grade 1 diastolic dysfun ction). RIGHT VENTRICLE Normal right ventricular size and systolic function. LEFT ATRIUM The left atrial size is normal. RIGHT ATRIUM The right atrial size is normal. ATRIAL SEPTUM Normal atrial septal thickness without atrial level shunting by limited color doppler interrogation. AORTA The aortic root and proximal ascending aorta are normal in size on limited imaging. MITRAL VALVE Structurally normal mitral valve. No mitral valve stenosis. Trace mitral valve regurgitation. AORTIC VALVE Grossly normal aortic valve. No aortic valve stenosis or regurgitation. TRICUSPID VALVE Structurally normal tricuspid valve. There is trace tricuspid valve regurgitation. No tricuspid valve stenosis. PULMONARY VALVE No pulmonary valve regurgitation or stenosis. VESSELS The inferior vena cava is normal in size. PERICARDIUM No pericardial effusion. Mal Lebron DO (Electronically Signed) Final Date:03 September 2017 17:42
[2017-09-03 19:32] LABS: HEMOGLOBIN A1C 5.8 % (4.3-6.0)
[2017-09-03] MEDS: ATORVASTATIN 10 MG TAB PO SCH (20:19)
[2017-09-04] VITALS: BP 153/64; PULSE 79; RESP 19; TEMP 98.3; O2SAT 98
[2017-09-04 04:00] VITALS: BP 149/66; PULSE 68; RESP 17; TEMP 98.4; O2SAT 97
[2017-09-04] MEDS: hydrALAZINE HCL 50 MG TAB PO SCH (06:00)
[2017-09-04] MEDS: ISOSORBIDE MONONITRATE 30 MG CR TAB (IMDUR) PO SCH (07:06)
[2017-09-04] MEDS: NIFEdipine 60 MG SUSTAINED RELEASE TAB PO SCH (07:55)
[2017-09-04] MEDS: HYDROmorphone HCL 2 MG TAB PO PRN (07:55)
[2017-09-04] MEDS: LISINOPRIL 10 MG TAB PO SCH (07:55)
[2017-09-04] MEDS: HEPARIN SODIUM - SQ 10,000 UNITS/ML VIAL SQ SCH (07:56)
[2017-09-04] MEDS: DOCUSATE SODIUM 50 MG/SENNA 8.6 MG TAB PO SCH (07:56)
[2017-09-04 07:57] VITALS: BP 135/62; PULSE 77; RESP 18; TEMP 98.3; O2SAT 97
[2017-09-04] MEDS: ASPIRIN 300 MG SUPP RECTAL SCH (07:57)
[2017-09-04] MEDS: SODIUM CHLORIDE 0.9% FLUSH 10 ML FLUSH IV FLUSH SCH (07:58)
[2017-09-04 10:14] VITALS: PULSE 72
[2017-09-04] MEDS ORDERED: ECASA81 PO (10:37)
--- NOTE | 2017-09-04 10:40 | HHI.DCPOC ---
Discharge Care Plan Diagnosis: (1) TIA (transient ischemic attack) (2) Head and neck cancer (3) Hypertensive urgency Goals to Promote Your Health * To prevent worsening of your condition and complications * To maintain your health at the optimal level Directions to Meet Your Goals Take your medications as prescribed Follow your dietary instruction Follow activity as directed Keep your appointments as scheduled Take your immunizations and boosters as scheduled If your symptoms worsen call your PCP, if no PCP go to Urgent Care Center or Emergency Room Smoking is Dangerous to Your Health. Avoid second hand smoke Call the 24-hour hour crisis hotline for domestic abuse at Kirby Valdez DO Sep 04, 2017 10:40
--- NOTE | 2017-09-04 10:48 | HHI.PR ---
Subjective Remarks The patient was anxious to go home. He said he has an oncology appointment on Wednesday. He says he still smokes a cigarette rarely. He was ambulating well. Objective Vitals Vital Signs Date Time Temp Pulse Resp B/P (MAP) Pulse Ox O2 Delivery O2 Flow Rate FiO2 09/04/17 10:14 72 09/04/17 07:57 98.3 77 18 135/62 (86) 97 09/04/17 04:00 98.4 68 17 149/66 (93) 97 09/04/17 00:00 98.3 79 19 153/64 (93) 98 09/03/17 20:00 98.3 71 17 145/70 (95) 98 09/03/17 16:00 97.7 75 18 157/75 (102) 98 09/03/17 16:00 71 09/03/17 12:00 66 09/03/17 12:00 97.6 68 16 140/70 (93) 96 I/O 09/03/17 09/03/17 09/03/17 09/04/17 09/04/17 09/04/17 07:00 15:00 23:00 07:00 15:00 23:00 Intake Total 400 ml Balance 400 ml Intake Oral 400 ml # Voids 2 3 Result Diagram: 09/02/17 1330 09/03/17 1225 Imaging Last Impressions Carotid Artery Ultrasound 09/03/17 0000 Signed Impressions: CONCLUSION: 1. Right Internal Carotid Artery: Findings indicate <50% stenosis. 2. Left Internal Carotid Artery: Findings indicate <50% stenosis. Head Magnetic Resonance Angiography 09/02/17 Signed Impressions: CONCLUSION: No intracranial vascular abnormality is identified. Head CT 09/02/17 0000 Signed Impressions: CONCLUSION: Chronic small vessel ischemic and atrophic changes not significant ly changed. Chest X-Ray 09/02/17 0000 Signed Impressions: CONCLUSION: Negative examination. Brain MRI 09/02/17 Signed Impressions: CONCLUSION: 1. Stable brain MRI without an acute finding identified. There are no findings to indicate recent ischemia. 2. There is mild generalized atrophy and severe chronic white matter changes l ikely representing chronic microvascular ischemia. Objective Remarks Not in distress PERRL, pink conjunctiva without injection, anicteric Nose without bleeding Positive for right cervical mass, hard, mildly tender Normal rate and regular rhythm, no murmurs gallops or rubs appreciated. Clear to auscultation and symmetric bilaterally, normal respiratory effort. Normal bowel sounds, soft, non-tender, nondistended, no guarding. Extremities without clubbing, cyanosis, 1+ edema. Alert awake and oriented 3, he is blind in the right eye. Normal speech. A/P Assessment and Plan This is a 62-year-old male with history of hypertension, recently diagnosed head and neck cancer presenting with left facial droop and right-sided weakness TIA MRI and MRA of the brain negative. Carotid ultrasound unremarkable. EEG normal. Neurology consult appreciated. Echo with EF 55-60%, grade 1 diastolic dysfunction. - continue aspirin 81 mg daily. Continue statin. - physical/ occupational/ speech therapy. - neuro checks. - hypercoagulable work-up with oncologist. Has follow-up appointment on Wednesday. Hypertension Improved. - restart nifedipine, Imdur, hydralazine, Norvasc and lisinopril. Coronary artery disease No chest pain. - continue cardiac regimen. ASA added. Chronic renal failure Creatinine around baseline. - avoid nephrotoxins. Head and neck cancer Currently undergoing chemo and radiation treatments. - follow-up as outpatient on Wednesday. DVT prophylaxis: heparin Discharge Planning D/c home Kirby Valdez DO Sep 04, 2017 10:48
[2017-09-04] MEDS ORDERED: ASPIRIN EC 81 MG TABEC PO SCH (11:15)
== END 2017-09-04 11:32 | disposition home or self-care (01) | DRG 69 ==
LOC: NEPE 13:15 → NEDA 15:18 → N05A 18:26
PROVIDERS: ADMIT Hospitalist; ATTEND Hospitalist
DX: G45.9 Transient cerebral ischemic attack, unspecified (principal); G81.91 Hemiplegia, unspecified affecting right dominant side; C76.0 Malignant neoplasm of head, face and neck; R47.01 Aphasia; I12.9 Hypertensive chronic kidney disease with stage 1 through stage 4 chronic kidney disease, or unspecified chronic kidney disease; R29.810 Facial weakness; I25.10 Atherosclerotic heart disease of native coronary artery without angina pectoris; I25.2 Old myocardial infarction; G47.30 Sleep apnea, unspecified; N18.9 Chronic kidney disease, unspecified; I16.0 Hypertensive urgency; M19.90 Unspecified osteoarthritis, unspecified site; F41.9 Anxiety disorder, unspecified; Z85.46 Personal history of malignant neoplasm of prostate; Z86.73 Personal history of transient ischemic attack (TIA), and cerebral infarction without residual deficits; Z87.891 Personal history of nicotine dependence; Z92.21 Personal history of antineoplastic chemotherapy; Z98.1 Arthrodesis status
CPT/HCPCS: 70450; 70544; 70551; 71045; 80048; 80053; 80061; 80307; 81001; 82550; 82607; 83036; 84443; 84484; 85025; 85384; 85610; 85730; 86850; 86900; 86901; 93005; 93306; 93880; 95819; 96361; 96374; 96375; J0780; J1644; J2270; J7030

== ENCOUNTER 2017-09-09 08:04 | Day surgery (SDC) | payer MEDICARE, OTHER ==
[~2017-09-09] VITALS: Ht 180.3 cm; Wt 65.5 kg
[~2017-09-09 08:04] MED LIST changes: +ECASA81 PO
[2017-09-09 08:25] VITALS: BP 142/93; PULSE 71; RESP 20; TEMP 98.3; O2SAT 98
[2017-09-09] MEDS ORDERED: VANCOMYCIN 1000 MG/NS 250 ML - implanted port/tunneled catheter IV SCH ×2 (09:00)
[2017-09-09] MEDS ORDERED: SODIUM CHLORIDE 0.9% 1000 ML IV SCH (09:00)
[2017-09-09] MEDS ORDERED: ceFAZolin 2 GM PREMIX 50 ML - implanted port/tunneled catheter insertion IV SCH (09:00)
[2017-09-09] MEDS ORDERED: CHLORHEXIDINE GLUCONATE 2 % 1 PACK (2 CLOTHS) TOPICAL SCH (09:00)
[2017-09-09] MEDS ORDERED: POVIDONE IODINE 5% (ANTISEPSIS KIT) 4 APPLICATIONS EACH NARE SCH (09:00)
[2017-09-09] MEDS ORDERED: OXYC15TA PO (09:32)
[2017-09-09] MEDS ORDERED: MS C30TA5 PO (09:32)
[2017-09-09] MEDS ORDERED: MIDAZOLAM HCL 5 MG/5 ML VIAL ONE (09:41)
[2017-09-09] MEDS ORDERED: fentaNYL CITRATE 250 MCG/5 ML AMP ONE (09:41)
[2017-09-09] MEDS ORDERED: LIDOCAINE 1%/EPINEPHrine 1:100,000 SOLN 20 ML VIAL ONE (09:44)
[2017-09-09] MEDS ORDERED: SODIUM BICARBONATE 8.4% INJ 50 ML ONE (09:45)
--- NOTE | 2017-09-09 10:40 | PD.RAD ---
Post Procedure Progress Note Pre Procedure Diagnosis: (1) Head and neck cancer Post Procedure Diagnosis: (1) Head and neck cancer Procedure Date: Sep 09, 2017 Supervising Radiologist: Rhett Hays Estimated blood loss: 2cc Anesthesia: Local Plan of Activity Patient to Unit: ROPU Patient Condition: Fair Additional Comments: Port placed via the right Subclavian vein Catheter in good position OK for use See PACS Report for procedural detail/treatment Rhett Hays MD Sep 09, 2017 10:40
[2017-09-09 10:45] VITALS: BP 136/78; PULSE 62; RESP 20; TEMP 97.5; O2SAT 97
[2017-09-09] MEDS ORDERED: SODIUM CHLORIDE 0.9% FLUSH 10 ML FLUSH IVF PRN (10:45)
[2017-09-09 11:00] VITALS: BP 147/70; PULSE 67; RESP 18; O2SAT 97
[2017-09-09 11:30] VITALS: BP 137/66; PULSE 63; RESP 18; O2SAT 97
[2017-09-09 12:15] VITALS: BP 133/68; PULSE 63; RESP 18; O2SAT 97
--- NOTE | 2017-09-09 14:49 | RADRPT ---
EXAM DATE: 09/09/2017 11:01 AM EDT AGE/SEX: 62 years / Male INDICATIONS: Patient presents with tongue cancer in need of port placement for treatment. CLINICAL DATA: This is the patient's initial encounter. Patient reports that signs and symptoms have been present for 2 months and indicates a pain score of 0/10. MEDICAL/SURGICAL HISTORY: Carcinoma, prostatic. Hypertension. Hepatitis C. Anxiety. CAD. Chr onic kidney disease. Tobacco abuse. Head and neck cancer. Osteoarthritis. MRSA. Osteomyelitis. Left s houlder surgery. Right arm surgery. Ankle surgery. COMPARISON: No prior exams available for comparison. FLUORO TIME (min): 0.8 IMAGE SERIES: 1 SEDATION TIME (min): 30 MEDICATION(S): 1mg midazolam (Versed) IV 50mcg fentanyl (Sublimaze) IV Prophylactic antibiotics were administered with appropriate pre-procedure timing. Vancomycin within 2 hrs of procedure, Ancef (or alternative) within 1 hr of procedure. DEVICE(S): Right 8fr Xcelon Plus Port . . PROCEDURE : 1. Continuous pulse oximetry and EKG monitoring. 2. Intravenous conscious sedation. 3. Ultrasound guidance for venous access. 4. Fluoroscopic guided implantable central venous port placement. The patient was placed supine. The neck was prepped in sterile fashion. Full sterile technique was u sed, including cap, mask, sterile gloves and gown, and a large sterile sheet. Hand hygiene and 2% ch lorhexidine Betadine was utilized per protocol for cutaneous antisepsis with appropriate dry time for site. Sterile gel and sterile probe cover were utilized for ultrasound guidance. The skin and sub cutaneous tissues were infiltrated with local anesthetic solution. Under direct ultrasound guidance, the right subclavian vein was accessed. The ultrasound images depi cting access guidance were stored and saved to PACS for permanent record. A subcutaneous pocket was created using blunt dissection. The port was introduced to the pocket. The catheter tubing was fed through a subcutaneous tunnel to the venotomy site. The catheter tubing was cut to a suitable length and then was introduced through a valved Peel-Away sheath and positioned with catheter tubing tip at the cavo-atrial junction level. The pocket incision was closed with subcuticular Vicryl suture. St sidney-Strips were applied. The port was flushed and locked with heparin solution per protocol. Steril e dressing was applied to the site. The patient tolerated the procedure well. Conscious sedation was performed with the prescribed dosages and duration as above in the presence of an independent trained radiology nurse to assist in the monitoring of the patient. EKG and oximetry remained stable throughout the procedure. The patient tolerated the procedure well and there were no complications. The patient was sent to post anesthesia recovery in stable condition. CONCLUSION: 1. Uncomplicated ultrasound and fluoroscopic guided implanted central venous port catheter placement as described in detail above. An 8 Urdu Power port was placed. Electronically signed by: Rhett Hays MD 09/09/2017 2:48 PM EDT
== END 2017-09-09 12:35 | disposition home or self-care (01) ==
LOC: HROP 08:04 → HRIP 08:05 → HROP 12:35
PROVIDERS: ATTEND Internal Medicine Hematology & Oncology
DX: Z45.2 Encounter for adjustment and management of vascular access device (principal); C02.9 Malignant neoplasm of tongue, unspecified; N18.9 Chronic kidney disease, unspecified; I12.9 Hypertensive chronic kidney disease with stage 1 through stage 4 chronic kidney disease, or unspecified chronic kidney disease; B19.20 Unspecified viral hepatitis C without hepatic coma; F41.9 Anxiety disorder, unspecified; I25.10 Atherosclerotic heart disease of native coronary artery without angina pectoris; M19.90 Unspecified osteoarthritis, unspecified site; Z79.899 Other long term (current) drug therapy; Z87.891 Personal history of nicotine dependence
CPT/HCPCS: 36561; 76937; 77001; 99152; 99153; C1788; J1642; J2250; J3010

== ENCOUNTER 2017-09-14 08:17 | Day surgery (SDC) | payer MEDICARE, OTHER ==
[~2017-09-14] VITALS: Ht 180.3 cm; Wt 65.0 kg
[~2017-09-14 08:17] MED LIST changes: -DILA8TAB4 PO; -HYDR-3583 PO; -HYDR8TAB PO; +MS C30TA5 PO; +OXYC15TA PO
[2017-09-14] MEDS ORDERED: IOHEXOL 350 MG/ML 50 ML BTL (for RAD DIAG) G-TUBE ONE (08:18)
[2017-09-14 08:50] VITALS: BP 139/84; PULSE 65; RESP 18; TEMP 97.9; O2SAT 98
[2017-09-14] MEDS ORDERED: ceFAZolin 2 GM PREMIX 50 ML - gastrostomy and jejunostomy initial insertion IV SCH (09:00)
[2017-09-14] MEDS ORDERED: SODIUM CHLORIDE 0.9% 1000 ML IV SCH (09:00)
[2017-09-14] MEDS ORDERED: GLUCAGON 1 MG/ML VIAL ONE (09:55)
[2017-09-14] MEDS ORDERED: MIDAZOLAM HCL 2 MG/2 ML VIAL ONE (09:55)
[2017-09-14] MEDS ORDERED: ONDANSETRON HCL 4 MG/2 ML VIAL ONE (10:10)
[2017-09-14] MEDS ORDERED: PROMETHAZINE INJ 25 MG/ML VIAL ONE (10:15)
[2017-09-14 10:50] VITALS: BP 139/74; PULSE 59; RESP 18; TEMP 97.9; O2SAT 100
[2017-09-14 11:05] VITALS: BP 149/77; PULSE 52; RESP 18; O2SAT 96
[2017-09-14 11:35] VITALS: BP 149/75; PULSE 58; RESP 18; O2SAT 97
[2017-09-14 12:05] VITALS: BP 170/81; PULSE 55; RESP 18; O2SAT 98
[2017-09-14 13:05] VITALS: BP 158/86; PULSE 57; RESP 18; O2SAT 97
[2017-09-14] MEDS ORDERED: HYDROmorphone HCL PF 2 MG/ML VIAL IV PUSH ONE (13:30)
[2017-09-14] MEDS ORDERED: IMPLANTED VASCULAR ACCESS PORT - SODIUM CHLORIDE FLUSH PRN IV FLUSH (14:00)
[2017-09-14] MEDS ORDERED: IMPLANTED VASCULAR ACCESS PORT - SODIUM CHLORIDE FLUSH IV FLUSH SCH (14:00)
[2017-09-14] MEDS ORDERED: HYDROmorphone HCL PF 2 MG/ML VIAL IV PUSH PRN (14:00)
--- NOTE | 2017-09-14 16:44 | RADRPT ---
EXAM DATE: 09/14/2017 11:17 AM EDT AGE/SEX: 62 years / Male INDICATIONS: Patient presents with history of tongue cancer in need of gastrostomy tube placement fo r nutrition. CLINICAL DATA: This is the patient's initial encounter. Patient reports that signs and symptoms have been present for 3 months and indicates a pain score of 5/10. MEDICAL/SURGICAL HISTORY: Arthritis. Carcinoma, prostatic. Hepatitis C. 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 Ankl e surgery.Implant-RT orbit implant.Right skull fracture requiring ORIF.Shoulder surgery.Infusion port placement.Right cervical lymph node biopsy. COMPARISON: No prior exams available for comparison. FLUORO TIME (min): 2.5 IMAGE SERIES: 2 SEDATION TIME (min): 30 CONTRAST (cc): 10 Omnipaque (iohexol) 350 MEDICATION(S): 2mg midazolam (Versed) IV 100mcg fentanyl (Sublimaze) IV 1mg Glucagon IV 12.5mg Promethazine IV 4mg Zofran(Ondsetron) IV Prophylactic antibiotics were administered with appropriate pre-procedure timing. DEVICE(S): 18 Syriac gastrostomy tube . . PROCEDURE: 1. Limited abdominal ultrasound. 2. Fluoroscopically guided gastrostomy tube placement. 3. Conscious sedation with continuous EKG and oximetry monitoring. The risks, benefits and alternatives to the procedure were explained and verbal and written consent w as obtained. The site was prepped in sterile fashion. Full sterile technique was used, including ca p, mask, sterile gloves and gown and a large sterile sheet. Hand hygiene and 2% chlorhexidine and/or betadine/alcohol prep was utilized per protocol for cutaneous antisepsis. The skin and subcutaneous tissues were infiltrated with local anesthetic solution. Sterile gel and sterile probe cover were u tilized for ultrasound guidance. Ultrasound was used to sangeetha the position of the liver. The stomach was insufflated with room air. Th ree percutaneous fasteners were placed to secure the anterior gastric wall. A small incision was made between the fasteners. The stomach was accessed with an 18 gauge needle. A n 0.035 wire was advanced into the small bowel. The tract was dilated. The gastrostomy tube was int roduced through a peel-away sheath. The position was confirmed with an injection of contrast. Conscious sedation was performed with the prescribed dosages and duration as above in the presence of an independent trained radiology nurse to assist in the monitoring of the patient. EKG and oximetry remained stable throughout the procedure. The patient tolerated the procedure well and there were n o complications. The patient was sent to post anesthesia recovery in stable condition. CONCLUSION: 1. Uncomplicated gastrostomy tube placement as above. Electronically signed by: Freddy Duong MD 09/14/2017 4:43 PM EDT
== END 2017-09-14 14:07 | disposition home or self-care (01) ==
LOC: HRIP 08:17 → HROP 08:17 → HRIP 11:57 → HROP 11:57
PROVIDERS: ATTEND Internal Medicine Hematology & Oncology
DX: C01 Malignant neoplasm of base of tongue (principal); I11.0 Hypertensive heart disease with heart failure; N18.9 Chronic kidney disease, unspecified; I25.10 Atherosclerotic heart disease of native coronary artery without angina pectoris; B19.20 Unspecified viral hepatitis C without hepatic coma; M19.90 Unspecified osteoarthritis, unspecified site; J44.9 Chronic obstructive pulmonary disease, unspecified; F41.9 Anxiety disorder, unspecified
CPT/HCPCS: 49440; 99152; 99153; C1769; C1887; C1894; J0690; J1170; J1610; J1642; J2250; J2405; J2550; J3010; J7030; Q9967

== ENCOUNTER 2017-10-09 12:09 | Inpatient (IN) ==
--- NOTE | 2017-10-09 12:49 | ED ---
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 He says that his oncologist is Dr. Mateo Pena and he recommended patient come in for possible admission for evaluation of the decreased white blood cells. Patient says that he is supposed to come in yesterday however, did not do so. He decided to come in today this is pain was uncontrolled despite taking his home pain medication. Patient says his pain is located in the right anterior cervical area where his cancer is located. Described as constant, aching, 10/10, nonradiating. Says that he is on oxycodone several times a day and was some morphine at one point but was told he cannot take this medication anymore without going to pain management. Patient says he is unable to go to pain management due to financial problems. He denies fever, chills, chest pain. He admits to some shortness of breath however, does not specify this is acute or chronic. He has an extensive history of tobacco use and had heavy alcohol use several years ago but has since stopped. Says his last round of chemotherapy was 2 weeks ago. Says he had radiation yesterday. Related Data Home Medications Medication Instructions Recorded Confirmed lisinopril 10 mg PO DAILY 10/09/17 10/09/17 oxycodone 20 mg PO Q4-6H PRN 10/09/17 10/09/17 Allergies Allergy/AdvReac Type Severity Reaction Status Date / Time simvastatin AdvReac Severe Joint Pain Verified 09/14/17 08:44 Review of Systems Except as stated in HPI: all other systems reviewed are negative [facility] Medical History Medical History HBP (high blood pressure) (Acute) Head and neck cancer (Acute) Surgical History Surgical History H/O neck surgery (Acute) History of eye surgery (Acute) History of knee surgery (Acute) PEG (percutaneous endoscopic gastrostomy) status (Acute) Social History Social History Substance History: No History of Abuse Second Hand Smoke Exposure: No Smoking Status: Former smoker Tobacco Type: Cigarettes How Often Do You Have a Drink Containing Alcohol: Never Recent Travel in [facility] within the Last 8 Weeks: No Recent Out of Country Travel within the Last 8 Weeks: No Immunization History Tetanus Immunization: >5 Years Hx Influenza Vaccine This Season: No Exam Narrative Exam Narrative: GENERAL: Well-developed, well-nourished in no apparent distress SKIN: Focused skin assessment warm/dry. HEAD: Atraumatic. Normocephalic. EYES: Pupils equal and round. No scleral icterus. No injection or drainage. ENT: No nasal bleeding or discharge. Mucous membranes pink Dry mucous membranes NECK: Trachea midline. No JVD. Right-sided mass approximately 3 cm x 2 cm, tender to palpation, no significant erythema. CARDIOVASCULAR: Regular rate and rhythm. No murmur appreciated. RESPIRATORY: No accessory muscle use. Clear to auscultation. Breath sounds equal bilaterally. GASTROINTESTINAL: Abdomen soft, non-tender, nondistended. Hepatic and splenic margins not palpable. MUSCULOSKELETAL: No obvious deformities. No clubbing. No cyanosis. No edema. NEUROLOGICAL: Awake and alert. No obvious cranial nerve deficits. Motor grossly within normal limits. Normal speech. PSYCHIATRIC: Appropriate mood and affect; insight and judgment normal. Course Initial Documented Vital Signs Temperature 98.7 F 10/09/17 12:17 Pulse Rate 95 H 10/09/17 12:17 Respiratory Rate 15 10/09/17 12:17 Blood Pressure 172/99 H 10/09/17 12:17 Pulse Oximetry 100 10/09/17 12:17 Last Documented Vital Signs Temperature 97.8 F 10/09/17 17:00 Pulse Rate 85 10/09/17 17:00 Respiratory Rate 16 10/09/17 17:00 Blood Pressure 140/77 10/09/17 17:00 Pulse Oximetry 99 10/09/17 16:00 Medical Decision Making SHAR Attestation SHAR supervised visit: Yes Attestation: I, Dr. Hancock, have reviewed the advance practice practitioner's documentation and am in agreement, met with the patient face to face, made the diagnosis, and the medical decision making was done by me. *My assessment and Findings: Patient seen and evaluated with PA, please see PA notes for further details. Patient has history of cancer of the neck, here complaining of headaches, nausea, vomiting, poor pain control. Abdomen is fairly benign on exam. Sent in by heme onc because he is doing poorly at home. Lab work shows leukopenia which appears to be baseline for this patient, there is some mild elevation of BUN and creatinine, likely secondary to some dehydration. CT of the brain and neck did not show any signs of acute processes. Patient had been given IV fluids, pain medication and nausea medication in the ER. At this point, my plan would be to admit the patient as observation, appears not to be doing well at home. [facility] Narrative Medical decision making narrative: 62-year-old male presents emergency department with concerns of decreased white blood cell count, nausea, vomiting, and uncontrolled pain. Patient has a history of poorly differentiated SCC of the tongue with metastases to the lymph nodes and follows Dr. Pena. According the patient, Dr. Pena recommended he come in to the emergency department evaluation and possible admission for further treatment. Upon initial evaluation patient is a well-developed, thin/cachectic 8-year-old male in no acute distress. There is a visible mass on the right anterior portion of the neck without evidence of erythema or superficial cellulitis. His vital signs are stable. Patient is afebrile. Initial heart rate 95 which decreased to 74 upon resting. Because of patient's concern with decreased white blood cell count, and heart rate 95, ordered septic workup. There was concern for neutropenic fever as patient is well-appearing however is frail. Dilaudid for pain. Zofran for nausea. 1 L NS administered. I discussed this patient with my attending. She recommended CT of the head and neck as patient complained of headache and persistent neck pain. Also recommended to admit this patient for persistent nausea, vomiting, pain control. Consider trending CBC if her his white blood cell count as his last chemo treatment was 2 weeks ago. Differential Diagnosis Differential Diagnosis: Leukopenia, leukocytosis, sepsis, pneumonia, medication noncompliance, dehydration Lab Data Result diagrams: 10/09/17 12:22 10/09/17 12:22 Lab Results 10/09/17 10/09/17 10/09/17 Range/Units 12:22 12:22 12:22 WBC 2.2 L (4.0-11.0) th/mm3 RBC 2.96 L (4.50-5.90) mil/mm3 Hgb 8.7 L (13.0-17.0) gm/dL Hct 25.2 L (39.0-51.0) % MCV 85.1 (80.0-100.0) fL MCH 29.2 (27.0-34.0) pg MCHC 34.3 (32.0-36.0) % RDW 17.9 H (11.6-17.2) % Plt Count 157 (150-450) th/mm3 MPV 6.8 L (7.0-11.0) fL Neut % (Auto) 70.9 H (16.0-70.0) % Lymph % (Auto) 15.9 (9.0-44.0) % Bay % (Auto) 9.2 H (0.0-8.0) % Eos % (Auto) 3.4 (0.0-4.0) % Baso % (Auto) 0.6 (0.0-2.0) % Neut # (Auto) 1.6 L (1.8-7.7) th/mm3 Lymph # (Auto) 0.4 L (1.0-4.8) th/mm3 Bay # (Auto) 0.2 (0.0-0.9) th/mm3 Eos # (Auto) 0.1 (0.0-0.4) th/mm3 Baso # (Auto) 0.0 (0.0-0.2) th/mm3 WBC Differential . Differential Comment Auto diff final PT 10.5 (9.8-11.6) sec INR 1.0 Ratio APTT 28.2 (24.3-30.1) sec Sodium 142 (136-145) meq/L Potassium 4.5 D (3.5-5.1) meq/L Chloride 109 H (98-107) meq/L Carbon Dioxide 25.8 (21.0-32.0) meq/L Anion Gap 7 (5-15) meq/L BUN 39 H (7-18) mg/dL Creatinine 2.44 H (0.60-1.30) mg/dL Estimated GFR 27 L (>89) mL/min Random Glucose 96 (74-106) mg/dL Lactic Acid (0.4-2.0) mmol/L Calcium 8.5 D (8.5-10.1) mg/dL Total Bilirubin 0.3 (0.2-1.0) mg/dL AST 33 (15-37) U/L ALT 36 (12-78) U/L Alkaline Phosphatase 142 H (45-117) U/L Total Protein 7.3 (6.4-8.2) g/dL Albumin 2.8 L (3.4-5.0) g/dL 10/09/17 Range/Units 12:40 WBC (4.0-11.0) th/mm3 RBC (4.50-5.90) mil/mm3 Hgb (13.0-17.0) gm/dL Hct (39.0-51.0) % MCV (80.0-100.0) fL MCH (27.0-34.0) pg MCHC (32.0-36.0) % RDW (11.6-17.2) % Plt Count (150-450) th/mm3 MPV (7.0-11.0) fL Neut % (Auto) (16.0-70.0) % Lymph % (Auto) (9.0-44.0) % Bay % (Auto) (0.0-8.0) % Eos % (Auto) (0.0-4.0) % Baso % (Auto) (0.0-2.0) % Neut # (Auto) (1.8-7.7) th/mm3 Lymph # (Auto) (1.0-4.8) th/mm3 Bay # (Auto) (0.0-0.9) th/mm3 Eos # (Auto) (0.0-0.4) th/mm3 Baso # (Auto) (0.0-0.2) th/mm3 WBC Differential Differential Comment PT (9.8-11.6) sec INR Ratio APTT (24.3-30.1) sec Sodium (136-145) meq/L Potassium (3.5-5.1) meq/L Chloride (98-107) meq/L Carbon Dioxide (21.0-32.0) meq/L Anion Gap (5-15) meq/L BUN (7-18) mg/dL Creatinine (0.60-1.30) mg/dL Estimated GFR (>89) mL/min Random Glucose (74-106) mg/dL Lactic Acid 0.9 (0.4-2.0) mmol/L Calcium (8.5-10.1) mg/dL Total Bilirubin (0.2-1.0) mg/dL AST (15-37) U/L ALT (12-78) U/L Alkaline Phosphatase (45-117) U/L Total Protein (6.4-8.2) g/dL Albumin (3.4-5.0) g/dL Imaging Data Radiologist's impression: Chest X-Ray 10/09/17 12:47 CONCLUSION: No acute cardiopulmonary disease. Head CT 10/09/17 14:03 CONCLUSION: No evidence of acute intracranial pathology. Chronic ischemic changes as above. There has been no significant change when compared to the prior exam. Soft Tissue Neck CT 10/09/17 14:03 CONCLUSION: 1. Decrease in size of the primary mass in the tongue base and vallecula. There is calcification of lymph nodes in the group to region on the right which bears reflect response to therapy. Limited evaluation secondary to the lack of intravenous contrast. Discharge Plan Discharge Disposition Patient Disposition: 30 Still Patient Discharge Condition Condition: Stable Discharge Details Diagnosis: Leukopenia due to antineoplastic chemotherapy, Nausea & vomiting, Chronic neoplasm-related pain Physicians Team ED Provider: Yadira Hancock ED Midlevel Provider: Fabi York Primary Care Provider: Mateo Pena Attending Provider: Shirley Cardona Status ED Status: Admitted Observation Patient
[2017-10-09] MEDS ORDERED: HYDROmorphone PF Inj 1 MG/ML Ampul IV.PUSH ONE (12:52)
[2017-10-09] MEDS ORDERED: HYDROmorphone PF Inj 2 MG/ML Vial ONE (12:56)
[2017-10-09 13:15] LABS: Baso % (Auto) 0.6 % (0.0-2.0); Eos # (Auto) 0.1 th/mm3 (0.0-0.4); Eos % (Auto) 3.4 % (0.0-4.0); Hematocrit 25.2 % (39.0-51.0); Hemoglobin 8.7 gm/dL (13.0-17.0); Lymph # (Auto) 0.4 th/mm3 (1.0-4.8); Lymph % (Auto) 15.9 % (9.0-44.0); Mean Corpuscular HGB Conc 34.3 % (32.0-36.0); Mean Corpuscular Hemoglobin 29.2 pg (27.0-34.0); Mean Corpuscular Volume 85.1 fL (80.0-100.0); Mean Platelet Volume 6.8 fL (7.0-11.0); Mono # (Auto) 0.2 th/mm3 (0.0-0.9); Mono % (Auto) 9.2 % (0.0-8.0); Neut # (Auto) 1.6 th/mm3 (1.8-7.7); Neut % (Auto) 70.9 % (16.0-70.0); Platelet Count 157 th/mm3 (150-450); Red Blood Count 2.96 mil/mm3 (4.50-5.90); Red Cell Distribution Width 17.9 % (11.6-17.2); White Blood Count 2.2 th/mm3 (4.0-11.0)
--- NOTE | 2017-10-09 13:25 | XR ---
EXAM DATE: 10/09/2017 1:21 PM EDT AGE/SEX: 62 years / Male INDICATIONS: Fever. CLINICAL DATA: This is the patient's initial encounter. Patient reports that signs and symptoms have been present for 1 day and indicates a pain score of 0/10. MEDICAL/SURGICAL HISTORY: . Arthritis. Hepatitis C. Carcinoma, prostatic. Squamous cell carc inoma of the base of the tongue. Biopsy proven metastatic disease involving right upper cervical lymp h node. Anxiety. Kidney disease stage III/IV. Lymphadenopathy. MRSA related osteomyelitis. HTN.COPD.C AD . Ankle surgery. Implant-RT orbit implant. Right skull fracture requiring ORIF. Shoulder surgery. Infusion port placement. Right cervical lymph node biopsy. [place] [facility]. . FINDINGS: A single AP view of the chest demonstrates the lungs to be symmetrically aerated without evidence of mass, infiltrate or effusion. The cardiomediastinal contours are unremarkable. Osseous structures a re intact. There is prominence of the aortic knob is with calcification characteristic of atheroscle rotic vascular disease. Lbizvm-[id number]-[id number] is in place via right subclavian approach with its tip in the s uperior vena cava. CONCLUSION: No acute cardiopulmonary disease. Electronically signed by: Eleazar Vivar MD 10/09/2017 1:24 PM EDT
[2017-10-09 13:29] LABS: Alanine Aminotransferase 36 U/L (12-78); Albumin 2.8 g/dL (3.4-5.0); Anion Gap 7 meq/L (5-15); Aspartate Aminotransferase 33 U/L (15-37); Blood Urea Nitrogen 39 mg/dL (7-18); Calcium 8.5 mg/dL (8.5-10.1); Carbon Dioxide 25.8 meq/L (21.0-32.0); Chloride 109 meq/L (98-107); Glomerular Filtration Rate 27 mL/min (>89); Glucose,Random 96 mg/dL (74-106); Potassium 4.5 meq/L (3.5-5.1); Sodium 142 meq/L (136-145)
[2017-10-09 13:31] LABS: Activated Partial Thrombo Time 28.2 sec (24.3-30.1); Prothrombin Time 10.5 sec (9.8-11.6)
[2017-10-09 13:42] LABS: Alkaline Phosphatase 142 U/L (45-117); Total Protein 7.3 g/dL (6.4-8.2)
[2017-10-09] MEDS ORDERED: Sod Chloride 0.9% Inj 1,000 ML IV.SIG ONE ×2 (13:59→17:08)
[2017-10-09] MEDS ORDERED: HYDROmorphone PF Inj 2 MG/ML Vial IV.PUSH ONE (15:38)
--- NOTE | 2017-10-09 16:18 | CT ---
EXAM DATE: 10/09/2017 4:09 PM EDT AGE/SEX: 62 years / Male INDICATIONS: Nausea and vomiting with posterior neck pain for two weeks. CLINICAL DATA: This is the patient's initial encounter. Patient reports that signs and symptoms have been present for 2 weeks and indicates a pain score of 7/10. MEDICAL/SURGICAL HISTORY: Hypertension. head and neck cancer . neck surgery, eye surgery RADIATION DOSE: 56.35 CTDI (mGy) COMPARISON: [facility] [place], 09/02/2017. . TECHNIQUE: CT of the head without contrast. Using automated exposure control and adjustment of the mA and/or kV according to patient size, radiation dose was kept as low as reasonably achievable to ob tain optimal diagnostic quality images. DICOM format image data is available electronically for revi ew and comparison. FINDINGS: Noncontrast axial head CT demonstrates the ventricles to be normal in size and configuration with a n ormal sulcal pattern. No acute intracranial hemorrhage, acute cortical infarction, mass or midline sh ift is seen. There is extensive periventricular hypodensity compatible with chronic ischemic change s ignificantly more than expected for patient this age. Posterior fossa structures are unremarkable. Bone windows are unremarkable. CONCLUSION: No evidence of acute intracranial pathology. Chronic ischemic changes as above. There has been no si gnificant change when compared to the prior exam. Electronically signed by: Eleazar Vivar MD 10/09/2017 4:16 PM EDT
--- NOTE | 2017-10-09 16:28 | CT ---
EXAM DATE: 10/09/2017 4:11 PM EDT AGE/SEX: 62 years / Male INDICATIONS: Nausea and vomiting with posterior neck pain for two weeks. CLINICAL DATA: This is the patient's initial encounter. Patient reports that signs and symptoms have been present for 2 weeks and indicates a pain score of 7/10. MEDICAL/SURGICAL HISTORY: Hypertension. head and neck cancer . neck surgery RADIATION DOSE: 16.29 CTDI (mGy) COMPARISON: No prior exams available for comparison. TECHNIQUE: Helical acquisition was performed using a multirow detector CT scanner without contrast. Using automated exposure control and adjustment of the mA and/or kV according to patient size, radiat ion dose was kept as low as reasonably achievable to obtain optimal diagnostic quality images. DICOM format image data is available electronically for review and comparison. FINDINGS: The exam is limited secondary to the lack of intravenous contrast. Examination of the skull base demo nstrates no evidence of deep infiltrating mucosal lesion. The oropharynx, hypopharynx, glottic and mathis bglottic airway demonstrate no abnormality. The previously seen abnormality involving the tongue bas e on the right extending into the vallecula is not seen on the current examination. Direct visualizat ion of this area is recommended. There is calcified lymph nodes posterior to the right parotid gland measuring 2 cm in diameter which may reflect metastatic adenopathy in this patient previously had adenopathy in this location. No cont ralateral adenopathy is seen. The thyroid gland demonstrates no abnormality. There are centrilobular emphysematous changes in both upper lobes. CONCLUSION: 1. Decrease in size of the primary mass in the tongue base and vallecula. There is calcification of lymph nodes in the group to region on the right which bears reflect response to therapy. Limited eval uation secondary to the lack of intravenous contrast. Electronically signed by: Eleazar Vivar MD 10/09/2017 4:27 PM EDT
[2017-10-09 18:21] LABS: Bilirubin,Urine Negative (Negative); Clarity,Urine Clear (Clear); Color,Urine Yellow (Yellw/Straw); Glucose,Urine (UA) 50 mg/dL (Negative); Hyaline Casts,Urine 1 /lpf (0-3); Leukocyte Esterase,Urine Negative (Negative); Nitrite,Urine Negative (Negative); Specific Gravity,Urine 1.012 (1.002-1.035); Sperm,Urine Occasional /hpf
--- NOTE | 2017-10-09 18:36 | P.HPFP ---
History of Present Illness Primary Care Physician: Mateo Pena MD <Shirley Cardona - 10/10/17 20:57> Mateo Pena MD <Yee Weaver - 10/09/17 18:36> History of Present Illness: 62 Male with PMH of HTN, DE, PTSD, osteomyelitis, currently on Chemotherapy for neck cancer here for evaluation of leukopenia. Pt was seeing Dr. Pena for chemotherapy on Wednesday and was told to come into the ED because his WBC count was low. He is also trying to be placed in a prison for further care. He confirms nausea and vomiting that started after he began chemotherapy. He also complains of right sided neck pain. He describes his pain as a 10/10 sharp pain located on the R side of his neck and runs down the base of his neck. He says that turning his head to the R makes the pain worse and his home pain medications help slightly. He said the pain sometimes is so painful it brings him to tears. Pt is still able to eat po and has a supplements provided via peg tube. He is still unsure of how to use his peg tube correctly. He has no other complaints. PMH: DE in June 2017, All others in HPI. Surg [facility]: Cervical Fusion(2017), Tonsillectomy (7 years old), [facility] Fam Hx: Mother of Pneumonia. SH: Has three children (42,27,9). Not . Pt does not drink alcohol. Quit smoking 3 months ago, smoked 1/2 ppd since the age of 11. No recreational drug use. Allergies: Simvastatin (Liver Toxicity) Meds: Reconciled. <Yee Weaver - 10/10/17 01:08> - Diagnosis (1) Leukopenia due to antineoplastic chemotherapy (2) Neck pain on right side (3) Anemia (4) Squamous cell carcinoma of pharynx (5) Nausea & vomiting (6) Chronic kidney disease (7) Hypertension (8) Hepatitis C (9) Nutrition, metabolism, and development symptoms <Shirley Cardona - 10/10/17 20:57> (1) Leukopenia due to antineoplastic chemotherapy (2) Anemia (3) Squamous cell carcinoma of pharynx (4) Nausea & vomiting (5) Chronic kidney disease (6) Nutrition, metabolism, and development symptoms (7) DVT prophylaxis <Yee Weaver 10/10/17 00:33> Inpatient Certification: CORRECTED DOCUMENTATION: Pt is admitted under observation. <Shirley Cardona 10/10/17 20:57> I certify that the inpatient services were ordered in accordance with Medicare regulations governing the order. This includes certification that hospital inpatient services are reasonable and necessary and in the case of services not specified as inpatient-only under 42 CFR 419.22(n), that they are appropriately provided as inpatient services in accordance to with the 2-midnight benchmark under 43 CFR 412.3(e) <PinkysivanYee 10/09/17 18:36> Review of Systems Constitutional: Reports night sweats, Denies chills, Denies fever(s) <Owen Yee 10/09/17 18:36> Eyes: Reports blurry vision <OwenYee 10/09/17 18:36> Ears, Nose, Mouth, and Throat: Reports abnormal hearing <wOenYee 18:36> Cardiovascular: Denies chest pain <OwenYee 10/09/17 18:36> Respiratory: Denies shortness of breath with activity <OwenYee 18:36> Gastrointestinal: Reports abdominal pain (due to peg tube) <OwenYee 10/09/17 18:36> Genitourinary: Reports urinary frequency (decreased frequency), Denies urinary incontinence <OwenYee 10/09/17 18:36> Musculoskeletal: Reports muscle weakness (due to chemotherapy) <Owen Yee 10/09/17 18:36> Neurologic: Reports abnormal hearing <OwenYee 10/09/17 18:36> PMFSH - History History Provided By: Patient <PinkysivanYee 10/09/17 18:36> - Medical History Medical History: Medical History (Last Updated 10/09/17 @ 12:43 by Claudette Diallo) HBP (high blood pressure) Head and neck cancer <Shirley Cardona 10/10/17 20:57> Medical History (Last Updated 10/09/17 @ 12:43 by Claudette Diallo) HBP (high blood pressure) Head and neck cancer <Yee Weaver - 10/09/17 18:36> - Surgical History Surgical History: Surgical History (Last Updated 10/09/17 @ 12:44 by Claudette Diallo) H/O neck surgery History of eye surgery History of knee surgery PEG (percutaneous endoscopic gastrostomy) status <Shirley Cardona - 10/10/17 20:57> Surgical History (Last Updated 10/09/17 @ 12:44 by Claudette Diallo) H/O neck surgery History of eye surgery History of knee surgery PEG (percutaneous endoscopic gastrostomy) status <Yee Weaver - 10/09/17 18:36> - Tobacco History Second Hand Smoke Exposure: No <Yee Weaver - 10/09/17 18:36> Tobacco Use In Past 30 Days: No <Yee Weaver - 10/09/17 18:36> Smoking Status: Former smoker <Yee Weaver - 10/09/17 18:36> Tobacco Type: Cigarettes <Yee Weaver - 10/09/17 18:36> - Alcohol History How Often Do You Have a Drink Containing Alcohol: Never <Yee Weaver - 18:36> - Substance Use History Substance History: No History of Abuse <Yee Weaver - 10/09/17 18:36> - Travel History Recent Travel in the [facility] Within the Last 8 Weeks: No <Yee Weaver - 18:36> Recent Travel Out of the Country Within the Last 8 Weeks: No <Yee Weaver - 10/09/17 18:36> - Immunization History Tetanus Immunization: >5 Years <Yee Weaver - 10/09/17 18:36> Hx Influenza Vaccine This Season: No <Yee Weaver - 10/09/17 18:36> Medications and Allergies Allergies Allergy/AdvReac Type Severity Reaction Status Date / Time simvastatin AdvReac Severe Joint Pain Verified 09/14/17 08:44 <Shirley Cardona - 10/10/17 20:57> Home Medications Medication Instructions Recorded Confirmed Type lisinopril 10 mg PO DAILY 10/09/17 10/09/17 History oxycodone 20 mg PO Q4-6H PRN 10/09/17 10/09/17 History <Shirley Cardona - 10/10/17 20:57> Active Medications: Active Medications Acetaminophen (Tylenol) 650 mg PO Q6H [facility] Last Admin: 10/10/17 15:13 Dose: Not Given Enoxaparin Sodium (Lovenox Inj) 30 mg SQ Q24H [facility] Last Admin: 10/09/17 20:03 Dose: 30 mg Hydromorphone HCl (Dilaudid Pf Inj) 1 mg IV.PUSH Q3H PRN PRN Reason: BREAKTHROUGH PAIN Last Admin: 10/10/17 20:11 Dose: 1 mg Hydromorphone HCl (Dilaudid Pf Inj) 1 mg IV.PUSH Q3H PRN PRN Reason: BREAKTHROUGH PAIN Sodium Chloride (Ns Inj) 1,000 mls @ 100 mls/hr IV.CONT .Q10H [facility] Last Admin: 10/10/17 16:08 Dose: 100 mls/hr Sodium Chloride (Ns Inj) 250 mls @ 15 mls/hr IV.SIG ONCE [facility] Stop: 10/11/17 07:39 Lisinopril (Prinivil) 10 mg PO DAILY [facility] Last Admin: 10/10/17 08:50 Dose: 10 mg Naloxone HCl (Narcan Inj) 0.4 mg IV.PUSH UNSCH PRN PRN Reason: SEE LABEL COMMENTS Naloxone HCl (Narcan Inj) 0.4 mg IV.PUSH UNSCH PRN PRN Reason: SEE LABEL COMMENTS Ondansetron HCl (Zofran Odt) 4 mg PO Q6H PRN PRN Reason: NAUSEA OR VOMITING Last Admin: 10/10/17 20:11 Dose: 4 mg Oxycodone HCl (Roxicodone) 20 mg PO Q4H [facility] Last Admin: 10/10/17 18:02 Dose: 20 mg Sodium Chloride (Ns Flush) 2 ml IV.FLUSH PRN PRN PRN Reason: FLUSH AFTER USING IV ACCESS Sodium Chloride (Ns Flush) 2 ml IV.FLUSH BID [facility] Last Admin: 10/10/17 11:35 Dose: Not Given <Shirley Cardona - 10/10/17 20:57> Active Medications Sodium Chloride (Ns Flush) 2 ml IV.FLUSH PRN PRN PRN Reason: FLUSH AFTER USING IV ACCESS Sodium Chloride (Ns Flush) 2 ml IV.FLUSH BID TONY <Yee Weaver - 10/09/17 18:36> Exam Vital signs: Vital Signs 10/10/17 03:10 10/10/17 07:41 10/10/17 07:49 Temperature 98.3 F 98.0 F Pulse Rate 52 L 55 L Respiratory Rate 16 16 20 Blood Pressure 178/88 H 189/91 H Pulse Oximetry 98 92 L 10/10/17 11:48 10/10/17 16:00 10/10/17 20:00 Temperature 98.7 F 98.7 F 98.7 F Pulse Rate 53 L 50 L 53 L Respiratory Rate 14 14 15 Blood Pressure 187/81 H 194/93 H 225/105 H Pulse Oximetry 99 100 99 Intake & Output 10/10/17 10/10/17 10/11/17 06:59 18:59 06:59 Intake Total 3240 / 3240 1000 / 1000 Balance 3240 / 3240 1000 / 1000 Weight 56.5 kg Intake: IV 1999 / 1999 1000 / 1000 NS Inj 1,000 ML @ 100 mls/hr IV 1000 / 1000 1000 / 1000 .CONT .Q10H TONY Rx#:[id number] NS Inj 1,000 ML @ Wide Open IV. 1000 / 1000 SIG BOLUS ONE Rx#:[id number] Oral 240 / 240 Other 1000 / 1000 Other: # Voids 4 Weight On Admission 56.5 kg <Shirley Cardona - 10/10/17 20:57> Vital Signs 10/09/17 12:17 10/09/17 12:20 10/09/17 12:47 Temperature 98.7 F 97.8 F Pulse Rate 95 H 74 Respiratory Rate 15 16 Blood Pressure 172/99 H 190/90 H Pulse Oximetry 100 100 98 10/09/17 13:20 10/09/17 14:00 10/09/17 15:00 Temperature 97.9 F 98.0 F 98.0 F Pulse Rate 62 64 60 Respiratory Rate 18 18 17 Blood Pressure 172/89 H 174/82 H 158/81 H Pulse Oximetry 99 100 97 10/09/17 16:00 10/09/17 16:12 10/09/17 17:00 Temperature 97.9 F 97.8 F Pulse Rate 54 L 85 Respiratory Rate 16 18 16 Blood Pressure 150/83 H 140/77 Pulse Oximetry 99 10/09/17 18:00 Temperature 97.7 F Pulse Rate 52 L Respiratory Rate 17 Blood Pressure 162/81 H Pulse Oximetry Intake & Output 10/08/17 10/09/17 10/09/17 18:59 06:59 18:59 Intake Total 1000 / 1000 Balance 1000 / 1000 Weight 56.5 kg Intake: IV 1000 / 1000 NS Inj 1,000 ML @ Wide Open IV. 1000 / 1000 SIG BOLUS ONE Rx#:[id number] <OwenYee - 10/09/17 20:29> - Constitutional cachectic, cooperative <OwenYee 10/09/17 20:29> - Routine HEENT Exam Head: Present: normocephalic, atraumatic <OwenYee 10/09/17 20:29> ENT: Present: mucous membranes dry, oropharynx clear <OwenYee 20:29> Comments: Dentures on the bottom and top <OwenYee 10/09/17 23:44> - Routine Neck Exam Present: swelling <OwenYee 10/09/17 20:29> Comments: Swelling present around the R maxilla and R neck area. One firm 4x4cm nodule present on the R side of the neck. Nodule slightly tender to palpation <OwenYee 10/09/17 23:44> - Routine Respiratory Exam Present: CTA bilaterally. Absent: accessory muscle use, decreased breath sounds , respiratory distress <OwenYee - 10/09/17 20:29> - Routine Cardiovascular Exam Present: RRR. Absent: murmur, gallop, rubs <OwenYee 10/09/17 20:29> - Routine Abdominal Exam Present: soft, normoactive bowel sounds. Absent: tenderness, distended <Yee Weaver 10/09/17 20:29> - Routine Extremities Exam Present: pulses intact. Absent: cyanosis, clubbing, edema, tenderness <Yee Weaver 10/09/17 20:29> - Routine Skin Exam Present: intact, dry <Yee Weaver - 10/09/17 20:29> - Routine Neurological Exam Present: alert <Yee Weaver - 10/09/17 20:29> Results - Labs Result diagrams: 10/10/17 13:00 10/10/17 13:00 <Shirley Cardona - 10/10/17 20:57> Abnormal lab results 10/10/17 10/10/17 Range/Units 13:00 13:00 WBC 2.0 L (4.0-11.0) th/mm3 RBC 2.81 L (4.50-5.90) mil/mm3 Hgb 8.1 L (13.0-17.0) gm/dL Hct 23.9 L (39.0-51.0) % RDW 17.7 H (11.6-17.2) % MPV 6.7 L (7.0-11.0) fL [place] % (Auto) 9.4 H (0.0-8.0) % Eos % (Auto) 5.6 H (0.0-4.0) % Neut # (Auto) 1.3 L (1.8-7.7) th/mm3 Lymph # (Auto) 0.4 L (1.0-4.8) th/mm3 Chloride 110 H (98-107) meq/L BUN 31 H (7-18) mg/dL Creatinine 2.07 H (0.60-1.30) mg/dL Estimated GFR 33 L (>89) mL/min Alkaline Phosphatase 120 H (45-117) U/L Albumin 2.4 L (3.4-5.0) g/dL Short CBC 10/10/17 Range/Units 13:00 WBC 2.0 L (4.0-11.0) th/mm3 Hgb 8.1 L (13.0-17.0) gm/dL Hct 23.9 L (39.0-51.0) % Plt Count 166 (150-450) th/mm3 BMP 10/10/17 13:00 Sodium 143 Potassium 4.7 Chloride 110 H Carbon Dioxide 23.8 BUN 31 H Creatinine 2.07 H Calcium 8.5 Liver Function 10/10/17 Range/Units 13:00 Total Bilirubin 0.2 (0.2-1.0) mg/dL AST 31 (15-37) U/L ALT 34 (12-78) U/L Alkaline Phosphatase 120 H (45-117) U/L Albumin 2.4 L (3.4-5.0) g/dL <Shirley Cardona - 10/10/17 20:57> Abnormal lab results 10/09/17 10/09/17 10/09/17 Range/Units 12:22 12:22 17:50 WBC 2.2 L (4.0-11.0) th/mm3 RBC 2.96 L (4.50-5.90) mil/mm3 Hgb 8.7 L (13.0-17.0) gm/dL Hct 25.2 L (39.0-51.0) % RDW 17.9 H (11.6-17.2) % MPV 6.8 L (7.0-11.0) fL Neut % (Auto) 70.9 H (16.0-70.0) % [place] % (Auto) 9.2 H (0.0-8.0) % Neut # (Auto) 1.6 L (1.8-7.7) th/mm3 Lymph # (Auto) 0.4 L (1.0-4.8) th/mm3 Chloride 109 H (98-107) meq/L BUN 39 H (7-18) mg/dL Creatinine 2.44 H (0.60-1.30) mg/dL Estimated GFR 27 L (>89) mL/min Alkaline Phosphatase 142 H (45-117) U/L Albumin 2.8 L (3.4-5.0) g/dL Urine Protein 100 H (Neg-Trace) mg/dL Urine Sperm Occasional H (None) /hpf Short CBC 10/09/17 Range/Units 12:22 WBC 2.2 L (4.0-11.0) th/mm3 Hgb 8.7 L (13.0-17.0) gm/dL Hct 25.2 L (39.0-51.0) % Plt Count 157 (150-450) th/mm3 BMP 10/09/17 12:22 Sodium 142 Potassium 4.5 D Chloride 109 H Carbon Dioxide 25.8 BUN 39 H Creatinine 2.44 H Calcium 8.5 D Liver Function 10/09/17 Range/Units 12:22 Total Bilirubin 0.3 (0.2-1.0) mg/dL AST 33 (15-37) U/L ALT 36 (12-78) U/L Alkaline Phosphatase 142 H (45-117) U/L Albumin 2.8 L (3.4-5.0) g/dL Urine 10/09/17 Range/Units 17:50 Urine Color Yellow (Yellw/Straw) Urine Clarity Clear (Clear) Urine pH 7.0 (5.0-8.5) Ur Specific [place] 1.012 (1.002-1.035) Urine Protein 100 H (Neg-Trace) mg/dL Urine Glucose (UA) 50 (Negative) mg/dL <Yee Weaver - 10/09/17 18:36> - Imaging Impressions Chest X-Ray 10/09/17 12:47 CONCLUSION: No acute cardiopulmonary disease. Head CT 10/09/17 14:03 CONCLUSION: No evidence of acute intracranial pathology. Chronic ischemic changes as above. There has been no significant change when compared to the prior exam. Soft Tissue Neck CT 10/09/17 14:03 CONCLUSION: 1. Decrease in size of the primary mass in the tongue base and vallecula. There is calcification of lymph nodes in the group to region on the right which bears reflect response to therapy. Limited evaluation secondary to the lack of intravenous contrast. <Yee Weaver - 10/09/17 18:36> Caprini VTE Risk Assessment Caprini VTE Risk Assessment: Moderate/High Risk (score >= 2) <Yee Weaver - 10/10/17 01:08> Caprini Risk Assessment Model: Point Value = 1 Point Value = 2 Point Value = 3 Point Value = 5 Age 41-60 Minor surgery BMI > 25 kg/m2 Swollen legs Varicose veins or History of unexplained or recurrent spontaneous Oral contraceptives or hormone replacement Sepsis (< 1 month) Serious lung disease, including pneumonia (< 1 month) Abnormal pulmonary function Acute myocardial infarction Congestive heart failure (< 1 month) History of inflammatory bowel disease Medical patient at bed rest Age 61-74 Arthroscopic surgery Major open surgery (> 45 min) Laparoscopic surgery (> 45 min) Malignancy Confined to bed (> 72 hours) Immobilizing plaster cast Central venous access Age >= 75 History of VTE Family history of VTE Factor V Leiden Prothrombin [id number] Lupus anticoagulant Anticardiolipin antibodies Elevated serum homocysteine Heparin-induced thrombocytopenia Other congenital or acquired thrombophilia Stroke (< 1 month) Elective arthroplasty Hip, pelvis, or leg fracture Acute spinal cord injury (< 1 month) <Shirley Cardona - 10/10/17 20:57> Point Value = 1 Point Value = 2 Point Value = 3 Point Value = 5 Age 41-60 Minor surgery BMI > 25 kg/m2 Swollen legs Varicose veins or History of unexplained or recurrent spontaneous Oral contraceptives or hormone replacement Sepsis (< 1 month) Serious lung disease, including pneumonia (< 1 month) Abnormal pulmonary function Acute myocardial infarction Congestive heart failure (< 1 month) History of inflammatory bowel disease Medical patient at bed rest Age 61-74 Arthroscopic surgery Major open surgery (> 45 min) Laparoscopic surgery (> 45 min) Malignancy Confined to bed (> 72 hours) Immobilizing plaster cast Central venous access Age >= 75 History of VTE Family history of VTE Factor V Leiden Prothrombin [id number] Lupus anticoagulant Anticardiolipin antibodies Elevated serum homocysteine Heparin-induced thrombocytopenia Other congenital or acquired thrombophilia Stroke (< 1 month) Elective arthroplasty Hip, pelvis, or leg fracture Acute spinal cord injury (< 1 month) <Yee Weaver - 10/09/17 18:36> Prophylaxis Regimen: Total Risk Factor Score Risk Level Prophylaxis Regimen 0-1 Low Early ambulation 2 Moderate Order ONE of the following: *Sequential Compression Device (SCD) *Heparin 5000 units SQ BID 3-4 Higher Order ONE of the following medications: *Heparin 5000 units SQ TID *Enoxaparin/Lovenox 40 mg SQ daily (WT < 150 kg, CrCl > 30 mL/min) *Enoxaparin/Lovenox 30 mg SQ daily (WT < 150 kg, CrCl > 10-29 mL/min) *Enoxaparin/Lovenox 30 mg SQ BID (WT < 150 kg, CrCl > 30 mL/min) AND/OR *Sequential Compression Device (SCD) 5 or more Highest Order ONE of the following medications: *Heparin 5000 units SQ TID (Preferred with Epidurals) *Enoxaparin/Lovenox 40 mg SQ daily (WT < 150 kg, CrCl > 30 mL/min) *Enoxaparin/Lovenox 30 mg SQ daily (WT < 150 kg, CrCl > 10-29 mL/min) *Enoxaparin/Lovenox 30 mg SQ BID (WT < 150 kg, CrCl > 30 mL/min) AND *Sequential Compression Device (SCD) <Shirley Cardona - 10/10/17 20:57> Total Risk Factor Score Risk Level Prophylaxis Regimen 0-1 Low Early ambulation 2 Moderate Order ONE of the following: *Sequential Compression Device (SCD) *Heparin 5000 units SQ BID 3-4 Higher Order ONE of the following medications: *Heparin 5000 units SQ TID *Enoxaparin/Lovenox 40 mg SQ daily (WT < 150 kg, CrCl > 30 mL/min) *Enoxaparin/Lovenox 30 mg SQ daily (WT < 150 kg, CrCl > 10-29 mL/min) *Enoxaparin/Lovenox 30 mg SQ BID (WT < 150 kg, CrCl > 30 mL/min) AND/OR *Sequential Compression Device (SCD) 5 or more Highest Order ONE of the following medications: *Heparin 5000 units SQ TID (Preferred with Epidurals) *Enoxaparin/Lovenox 40 mg SQ daily (WT < 150 kg, CrCl > 30 mL/min) *Enoxaparin/Lovenox 30 mg SQ daily (WT < 150 kg, CrCl > 10-29 mL/min) *Enoxaparin/Lovenox 30 mg SQ BID (WT < 150 kg, CrCl > 30 mL/min) AND *Sequential Compression Device (SCD) <Yee Weaver - 10/09/17 18:36> Assessment and Plan - Assessment (1) Leukopenia due to antineoplastic chemotherapy Code(s): D70.1 - Agranulocytosis secondary to cancer chemotherapy; T45.1X5A - Adverse effect of antineoplastic and immunosuppressive drugs, initial encounter Status: Acute (2) Neck pain on right side Code(s): M54.2 - Cervicalgia Status: Acute (3) Anemia Code(s): D64.9 - Anemia, unspecified Status: Acute (4) Squamous cell carcinoma of pharynx Code(s): C14.0 - Malignant neoplasm of pharynx, unspecified Status: Chronic (5) Nausea & vomiting Code(s): R11.2 - Nausea with vomiting, unspecified Status: Acute (6) Chronic kidney disease Code(s): N18.9 - Chronic kidney disease, unspecified Status: Acute (7) Hypertension Code(s): I10 - Essential (primary) hypertension Status: Chronic (8) Hepatitis C Code(s): B19.20 - Unspecified viral hepatitis C without hepatic coma Status: Chronic (9) Nutrition, metabolism, and development symptoms Code(s): R63.8 - Other symptoms and signs concerning food and fluid intake Status: Acute <Shirley Cardona - 10/10/17 20:57> (1) Leukopenia due to antineoplastic chemotherapy Code(s): D70.1 - Agranulocytosis secondary to cancer chemotherapy; T45.1X5A - Adverse effect of antineoplastic and immunosuppressive drugs, initial encounter Status: Acute Plan: Patient is at risk for potentially fatal infection due to low WBC count: Patient is currently afebrile. -Monitor for signs of sepsis (fever, tachycardia) -If patient becomes febrile will consider placing pt on IV Zosyn 4.5g q4 to cover Anaerobes, Pseudomonas, Strep, MSSA, E.Coli, ESCAPPM, Klebsiella. For better Gram positive coverage (MRSA) Vancomycin and Zosyn should not be given together due to high nephrotoxicity considering his CKD. -If Vancomycin needs to be added, continue to check for SELIN. -Dr. Pena of [facility] Consulted, will appreciate his recommendations moving forward. -Neutropenic precautions onboard. -Recheck CBC in AM -Continue Checking Vitals q4hr -Case Management Involved to help with prison placement (2) Anemia Code(s): D64.9 - Anemia, unspecified Status: Acute Plan: Microcytic Anemia -Hb: 8.7, MCV:85.1 -Could be due to CKD or his chemotherapy -Consider transfusion if Hb is under 7 -Continue to Monitor. (3) Squamous cell carcinoma of pharynx Code(s): C14.0 - Malignant neoplasm of pharynx, unspecified Status: Chronic Plan: Diagnosed and Started on Chemotherapy in June 2017 -Treated by Dr. Pena of [facility], currently consulted -Chemotherapy has been halted until Dr. Penas further instructions. -CT of Neck shows decrease in size of primary mass in tongue base and vallecula (4) Nausea & vomiting Code(s): R11.2 - Nausea with vomiting, unspecified Status: Acute Plan: Symptoms started after beginning chemotherapy: Most likely etiology. -Zofran 4mg IV PRN -Affecting Nutritional Status (5) Chronic kidney disease Code(s): N18.9 - Chronic kidney disease, unspecified Status: Acute Plan: Possibly Stage 2 CKD -Isolated Proteinuria, GFR:27, BUN:39,Cr:2.44 -Pt states to have low frequency urination. -Continue to Monitor: I&Os -Repeat: CMP in AM (6) Nutrition, metabolism, and development symptoms Code(s): R63.8 - Other symptoms and signs concerning food and fluid intake Status: Acute Plan: Patient is Cachectic, most likely due to chemotherapy, increased nausea/ vomiting and peg tube issues. -Fluids: NS 0/9% at 100 mls/hr -Electrolytes: Monitor and Replete PRN -Diet:Regular. Consulted Dietitian for further evaluation on peg tube feeding and poor po intake (7) DVT prophylaxis Status: Acute Plan: Placed on Enoxaparin 30 mg per day and SCDs -Continue to monitor platelet levels as Enoxaparin can cause thrombocytopenia in addition to his CKD -Platelet Count: 157 -Dose Renally <Yee Weaver - 10/10/17 00:33> - Assessment and Plan . <Yee Weaver - 10/09/17 21:14> <Yee Weaver - Last Filed: 10/10/17 00:33> (2) Anemia Qualifiers: Anemia type: unspecified type Qualified Code(s): D64.9 - Anemia, unspecified (4) Nausea & vomiting Qualifiers: Vomiting type: unspecified Vomiting Intractability: non-intractable Qualified Code(s): R11.2 - Nausea with vomiting, unspecified (5) Chronic kidney disease Qualifiers: Chronic kidney disease stage: unspecified stage Qualified Code(s): N18.9 - Chronic kidney disease, unspecified <Vey,Shirley - Last Filed: 10/10/17 20:57> (3) Anemia Qualifiers: Anemia type: unspecified type Qualified Code(s): D64.9 - Anemia, unspecified (5) Nausea & vomiting Qualifiers: Vomiting type: unspecified Vomiting Intractability: non-intractable Qualified Code(s): R11.2 - Nausea with vomiting, unspecified (6) Chronic kidney disease Qualifiers: Chronic kidney disease stage: stage 4 (severe) Qualified Code(s): N18.4 - Chronic kidney disease, stage 4 (severe) (7) Hypertension Qualifiers: Hypertension type: essential hypertension Qualified Code(s): I10 - Essential (primary) hypertension (8) Hepatitis C Qualifiers: Viral hepatitis chronicity: chronic <Yee Weaver - Last Filed: 10/10/17 00:33> (2) Anemia Qualifiers: Anemia type: unspecified type Qualified Code(s): D64.9 - Anemia, unspecified (4) Nausea & vomiting Qualifiers: Vomiting type: unspecified Vomiting Intractability: non-intractable Qualified Code(s): R11.2 - Nausea with vomiting, unspecified (5) Chronic kidney disease Qualifiers: Chronic kidney disease stage: unspecified stage Qualified Code(s): N18.9 - Chronic kidney disease, unspecified <Vey,Shirley - Last Filed: 10/10/17 20:57> (3) Anemia Qualifiers: Anemia type: unspecified type Qualified Code(s): D64.9 - Anemia, unspecified (5) Nausea & vomiting Qualifiers: Vomiting type: unspecified Vomiting Intractability: non-intractable Qualified Code(s): R11.2 - Nausea with vomiting, unspecified (6) Chronic kidney disease Qualifiers: Chronic kidney disease stage: stage 4 (severe) Qualified Code(s): N18.4 - Chronic kidney disease, stage 4 (severe) (7) Hypertension Qualifiers: Hypertension type: essential hypertension Qualified Code(s): I10 - Essential (primary) hypertension (8) Hepatitis C Qualifiers: Viral hepatitis chronicity: chronic
[2017-10-09] MEDS ORDERED: Acetaminophen 325 MG Tablet PO PRN (19:17)
[2017-10-09] MEDS ORDERED: Naloxone Inj 0.4 MG/ML Vial IV.PUSH PRN (19:36)
[2017-10-09] MEDS ORDERED: HYDROmorphone PF Inj 1 MG/ML Ampul IV.PUSH PRN (19:36)
[2017-10-09] MEDS: Enoxaparin Inj 30 MG/0.3 ML Syringe SQ SCH (20:03)
[2017-10-09] MEDS: Sod Chloride 0.9% Inj 1,000 ML IV.CONT SCH (20:03)
[2017-10-09] MEDS: HYDROmorphone PF Inj 2 MG/ML Vial IV.PUSH PRN ×2 (20:04→23:48)
[2017-10-09] MEDS: Acetaminophen 325 MG Tablet PO SCH (20:06)
[2017-10-10] MEDS: Acetaminophen 325 MG Tablet PO SCH ×4 (02:06→23:43)
[2017-10-10] MEDS: HYDROmorphone PF Inj 2 MG/ML Vial IV.PUSH PRN ×3 (06:11→20:11)
[2017-10-10] MEDS: Sod Chloride 0.9% Inj 1,000 ML IV.CONT SCH ×2 (06:12→16:08)
--- NOTE | 2017-10-10 07:30 | P.PNFP ---
Subjective Interval history: This progress note is written in conjunction with resident H&P dated 10/09/2017. 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 For further details, please see resident H&P. Overnight, he reports he remained in pain in his neck. This morning, he continues to have pain and confirms that he is taking oxycodone 20mg Q4 hours at home. He states he knows he is "going to " because he keeps losing weight. He endorses increase in urination after receiving IV fluid. ROS: Per resident H&P. Significant for: Night sweats, neck pain, abdominal pain (at peg tube site), weakness. All other systems reviewed are negative. PMH/PSxH/SocHx/FamHx: Per resident H&P. Significant for: [place]/CAD 06/2017. HTN, CKD stage III/IV, hepatitis C, cancer of head and neck as previously mentioned. PegTube and port placement, Neck surgery. Prior tobacco abuse, with 25 pack year history. No alcohol abuse, no recreational drug use. Results - Labs Result diagrams: 10/09/17 12:22 10/09/17 12:22 Abnormal lab results 10/09/17 10/09/17 10/09/17 Range/Units 12:22 12:22 17:50 WBC 2.2 L (4.0-11.0) th/mm3 RBC 2.96 L (4.50-5.90) mil/mm3 Hgb 8.7 L (13.0-17.0) gm/dL Hct 25.2 L (39.0-51.0) % RDW 17.9 H (11.6-17.2) % MPV 6.8 L (7.0-11.0) fL Neut % (Auto) 70.9 H (16.0-70.0) % [place] % (Auto) 9.2 H (0.0-8.0) % Neut # (Auto) 1.6 L (1.8-7.7) th/mm3 Lymph # (Auto) 0.4 L (1.0-4.8) th/mm3 Chloride 109 H (98-107) meq/L BUN 39 H (7-18) mg/dL Creatinine 2.44 H (0.60-1.30) mg/dL Estimated GFR 27 L (>89) mL/min Alkaline Phosphatase 142 H (45-117) U/L Albumin 2.8 L (3.4-5.0) g/dL Urine Protein 100 H (Neg-Trace) mg/dL Urine Sperm Occasional H (None) /hpf Short CBC 10/09/17 Range/Units 12:22 WBC 2.2 L (4.0-11.0) th/mm3 Hgb 8.7 L (13.0-17.0) gm/dL Hct 25.2 L (39.0-51.0) % Plt Count 157 (150-450) th/mm3 BMP 10/09/17 12:22 Sodium 142 Potassium 4.5 D Chloride 109 H Carbon Dioxide 25.8 BUN 39 H Creatinine 2.44 H Calcium 8.5 D Liver Function 10/09/17 Range/Units 12:22 Total Bilirubin 0.3 (0.2-1.0) mg/dL AST 33 (15-37) U/L ALT 36 (12-78) U/L Alkaline Phosphatase 142 H (45-117) U/L Albumin 2.8 L (3.4-5.0) g/dL Urine 10/09/17 Range/Units 17:50 Urine Color Yellow (Yellw/Straw) Urine Clarity Clear (Clear) Urine pH 7.0 (5.0-8.5) Ur Specific [place] 1.012 (1.002-1.035) Urine Protein 100 H (Neg-Trace) mg/dL Urine Glucose (UA) 50 (Negative) mg/dL - Imaging Impressions Chest X-Ray 10/09/17 12:47 CONCLUSION: No acute cardiopulmonary disease. Head CT 10/09/17 14:03 CONCLUSION: No evidence of acute intracranial pathology. Chronic ischemic changes as above. There has been no significant change when compared to the prior exam. Soft Tissue Neck CT 10/09/17 14:03 CONCLUSION: 1. Decrease in size of the primary mass in the tongue base and vallecula. There is calcification of lymph nodes in the group to region on the right which bears reflect response to therapy. Limited evaluation secondary to the lack of intravenous contrast. Physical Exam Vital signs: Vital Signs 10/09/17 12:17 10/09/17 12:20 10/09/17 12:47 Temperature 98.7 F 97.8 F Pulse Rate 95 H 74 Respiratory Rate 15 16 Blood Pressure 172/99 H 190/90 H Pulse Oximetry 100 100 98 10/09/17 13:20 10/09/17 14:00 10/09/17 15:00 Temperature 97.9 F 98.0 F 98.0 F Pulse Rate 62 64 60 Respiratory Rate 18 18 17 Blood Pressure 172/89 H 174/82 H 158/81 H Pulse Oximetry 99 100 97 10/09/17 16:00 10/09/17 16:12 10/09/17 17:00 Temperature 97.9 F 97.8 F Pulse Rate 54 L 85 Respiratory Rate 16 18 16 Blood Pressure 150/83 H 140/77 Pulse Oximetry 99 10/09/17 17:50 10/09/17 18:00 10/09/17 19:16 Temperature 97.9 F 97.7 F 97.7 F Pulse Rate 54 L 52 L 54 L Respiratory Rate 16 17 18 Blood Pressure 154/83 H 162/81 H 192/94 H Pulse Oximetry 97 10/09/17 20:00 10/10/17 03:10 Temperature 96.7 F L 98.3 F Pulse Rate 100 H 52 L Respiratory Rate 18 16 Blood Pressure 194/98 H 178/88 H Pulse Oximetry 97 98 Intake & Output 10/09/17 10/10/17 10/10/17 18:59 06:59 18:59 Intake Total 1000 / 1000 3240 / 3240 Balance 1000 / 1000 3240 / 3240 Weight 56.5 kg 56.5 kg Intake: IV 1000 / 1000 1999 / 1999 NS Inj 1,000 ML @ 100 mls/hr IV 1000 / 1000 .CONT .Q10H TONY Rx#:[id number] NS Inj 1,000 ML @ Wide Open IV. 1000 / 1000 1000 / 1000 SIG BOLUS ONE Rx#:[id number] Oral 240 / 240 Other 1000 / 1000 Other: # Voids 4 Weight On Admission 56.5 kg Narrative: Per resident H&P. Significant for: Thin, frail appearing. Right sided firm cervical lymphadenopathy, mildly tender. CTAB. +BS, soft. Peg tube in place; no surrounding erythema, no drainage at site. Right chest with port site; no surrounding erythema. Assessment and Plan - Assessment (1) Leukopenia due to antineoplastic chemotherapy Code(s): D70.1 - Agranulocytosis secondary to cancer chemotherapy; T45.1X5A - Adverse effect of antineoplastic and immunosuppressive drugs, initial encounter Status: Acute Plan: Patient is at risk for potentially fatal infection due to low WBC count: Patient is currently afebrile. -Monitor for signs of sepsis (fever, tachycardia) -If patient becomes febrile, will start antibiotics for neutropenic fever. -Dr. Pena of [facility] Consulted, will appreciate his recommendations moving forward. -Neutropenic precautions onboard. ANC>1000. -Recheck CBC in AM; pending still at the time of this note. -Case Management Involved to help with longterm placement (2) Neck pain on right side Code(s): M54.2 - Cervicalgia Status: Acute Plan: Secondary to locally metastatic head and neck cancer. Home oxycodone 20mg Q4 hours scheduled; dilaudid for breakthrough. Will adjust medications as needed. (3) Anemia Code(s): D64.9 - Anemia, unspecified Status: Acute Plan: Microcytic Anemia -Hb: 8.7, MCV:85.1 -Could be due to CKD or his chemotherapy -Consider transfusion if Hb is under 7 -Continue to Monitor. Hemodynamically stable at this time. (4) Squamous cell carcinoma of pharynx Code(s): C14.0 - Malignant neoplasm of pharynx, unspecified Status: Chronic Plan: Diagnosed and Started on Chemotherapy in June 2017 -Treated by Dr. Pena of [facility], currently consulted -Chemotherapy has been halted until Dr. Penas further instructions. -CT of Neck shows decrease in size of primary mass in tongue base and vallecula (5) Nausea & vomiting Code(s): R11.2 - Nausea with vomiting, unspecified Status: Acute Plan: Symptoms started after beginning chemotherapy: Most likely etiology. -Zofran 4mg IV PRN -Affecting Nutritional Status (6) Chronic kidney disease Code(s): N18.9 - Chronic kidney disease, unspecified Status: Acute Plan: Possibly Stage 3/4 CKD -Isolated Proteinuria, GFR:27, BUN:39,Cr:2.44 -Pt states to have low frequency urination. -Continue to Monitor: I&Os -Repeat: CMP in AM (7) Hypertension Code(s): I10 - Essential (primary) hypertension Status: Chronic Plan: Continue home medications and monitor. Pt may need an adjustment in his medications, due to continued elevation in BP or due to renal function. (8) Hepatitis C Code(s): B19.20 - Unspecified viral hepatitis C without hepatic coma Status: Chronic Plan: This may be contributing to his leukopenia. LFTs at admission WNL. (9) Nutrition, metabolism, and development symptoms Code(s): R63.8 - Other symptoms and signs concerning food and fluid intake Status: Acute Plan: Patient is Cachectic, most likely due to chemotherapy, increased nausea/ vomiting and peg tube issues. -Fluids: NS 0/9% at 100 mls/hr -Electrolytes: Monitor and Replete PRN -Diet:Regular. Consulted Dietitian for further evaluation on peg tube feeding ( and patient education regarding PEG tube) and poor po intake - Assessment and Plan . (3) Anemia Qualifiers: Anemia type: unspecified type Qualified Code(s): D64.9 - Anemia, unspecified (5) Nausea & vomiting Qualifiers: Vomiting type: unspecified Vomiting Intractability: non-intractable Qualified Code(s): R11.2 - Nausea with vomiting, unspecified (6) Chronic kidney disease Qualifiers: Chronic kidney disease stage: stage 4 (severe) Qualified Code(s): N18.4 - Chronic kidney disease, stage 4 (severe) (7) Hypertension Qualifiers: Hypertension type: essential hypertension Qualified Code(s): I10 - Essential (primary) hypertension (8) Hepatitis C Qualifiers: Viral hepatitis chronicity: chronic
[2017-10-10] MEDS: Lisinopril 10 MG Tablet PO SCH (08:50)
[2017-10-10] MEDS ORDERED: Naloxone Inj 0.4 MG/ML Vial IV.PUSH PRN (09:07)
[2017-10-10] MEDS ORDERED: HYDROmorphone PF Inj 2 MG/ML Vial IV.PUSH PRN (09:07)
[2017-10-10 13:30] LABS: Baso % (Auto) 0.7 % (0.0-2.0); Eos # (Auto) 0.1 th/mm3 (0.0-0.4); Eos % (Auto) 5.6 % (0.0-4.0); Hematocrit 23.9 % (39.0-51.0); Hemoglobin 8.1 gm/dL (13.0-17.0); Lymph # (Auto) 0.4 th/mm3 (1.0-4.8); Lymph % (Auto) 19.2 % (9.0-44.0); Mean Corpuscular HGB Conc 33.8 % (32.0-36.0); Mean Corpuscular Hemoglobin 28.7 pg (27.0-34.0); Mean Platelet Volume 6.7 fL (7.0-11.0); Mono # (Auto) 0.2 th/mm3 (0.0-0.9); Mono % (Auto) 9.4 % (0.0-8.0); Neut # (Auto) 1.3 th/mm3 (1.8-7.7); Neut % (Auto) 65.1 % (16.0-70.0); Platelet Count 166 th/mm3 (150-450); Red Blood Count 2.81 mil/mm3 (4.50-5.90); Red Cell Distribution Width 17.7 % (11.6-17.2)
[2017-10-10 13:53] LABS: Albumin 2.4 g/dL (3.4-5.0); Anion Gap 9 meq/L (5-15); Aspartate Aminotransferase 31 U/L (15-37); Blood Urea Nitrogen 31 mg/dL (7-18); Calcium 8.5 mg/dL (8.5-10.1); Carbon Dioxide 23.8 meq/L (21.0-32.0); Chloride 110 meq/L (98-107); Glomerular Filtration Rate 33 mL/min (>89); Glucose,Random 103 mg/dL (74-106); Potassium 4.7 meq/L (3.5-5.1); Sodium 143 meq/L (136-145)
[2017-10-10 13:54] LABS: Alanine Aminotransferase 34 U/L (12-78)
[2017-10-10 13:56] LABS: Alkaline Phosphatase 120 U/L (45-117); Total Protein 6.4 g/dL (6.4-8.2)
[2017-10-10] MEDS ORDERED: Sodium Chlor 0.9% Inj 250 ML IV.SIG SCH (15:00)
--- NOTE | 2017-10-10 15:24 | P.DIET ---
Nutritional Evaluation Type of nutrition evaluation: initial Nutrition consult regarding: Tube Feeding Nutrition screening: MDC Subjective Subjective Comments: Pt states he has to gain wt. He says he cannot feed himself through his PEG, " I spill and I just can't do it." Pt wants to go to a residential for a while to gain wt and regain some strength. Pt states he eats even though the food has no taste r/t chemo treatment, says chemo is on hold due to low wt and leukopenia. Pt states he drinks 2-3 Ensure supplements/day. Objective - Diagnosis Leukopenia, nausea/vomiting - Objective % IBW: 72 Body Weight Used for Calculations: Actual (56.5kg) Energy Needs - Lower Range (kCal/kg): 40 Energy Needs - Upper Range (kCal/kg): 45 Lower Limit kCal/kg (kCals): 2,260 Upper Limit kCal/kg (kCals): 2,543 Lower Limit Protein Factor (Grams per Kg): 1.3 Upper Limit Protein Factor (Grams per Kg): 1.8 Lower Protein Needs (Protein): 73 Upper Protein Needs (Protein): 102 Fluid Factor (ml/kg): 35 Estimated Fluid Needs (ml): 1,978 Dietitian Reviewed in Medical Record: Current diet, Curent medications, Intake & Output, Labs, Medical history Diet Order: Regular Oral Diet Intake Amount: Good 75-90% Objective Comments: PMH: HTN, [place], PTSD, osteomyelitis, currently on Chemotherapy for neck cancer Meds include: Lisinopril, Narcan, Zofran Labs include: WBC 2.2, Hgb 8.7, Hct 25.2 Assessment Assessment: Pt at nutritional risk r/t his current clinical status. Pt admitted with Leukopenia, has been receiving chemo for neck cancer. Pt is able to take a po diet and also has a PEG tube for nutritional supplementation. Pt's po intake has been 75-100% since admission. He is only at 72% of his ideal body wt. Discussed with pt about running TF from 6pm-8am then eating during the day, he is agreeable to that. Recommend Two Khalif HN with goal rate 70 ml/hr for 14 hours providing 1960 kcals, 82 gms protein and 686 mls free water. If pt is to bolus feed, recommend same formula, 4 cans/day providing 1900 kcals, 80 gms protein and 664 mls free water. Both options will provide pt with 87% of his calorie needs and 100% of his protein needs. Will monitor clinical course. Recommendations: Recommendations for TF options: 1. Two Khalif HN with goal rate of 70 ml/hr for 14 hrs (6pm-8am) Regular diet throughout the day with Ensure tid 2. Two Khalif HN bolus feeds: 4 cans/day suggested 7am, 11am, 3pm, 7pm 30 mls free water flushes before and after bolus feeds Regular meals in between with Ensure tid If pt goes to SNF, highly recommend nocturnal feedings and regular diet with Ensure during the day. Dietitian to Monitor: Lab values, Intake & Output, Tube feeding tolerance, Weight change, PO Intake, Medical course
--- NOTE | 2017-10-10 16:06 | MB ---
cc: Radha Mortensen MD,Shirley Pena,Mateo CHUN DATE: 10/10/2017 REFERRING PHYSICIAN: Dr. Shirley Cardona. CHIEF COMPLAINT: Dr. Cardona requests a consultation for Mr. Beard regarding squamous cell cancer of the tongue. HISTORY OF PRESENT ILLNESS: Mr. Beard is a retired [employer]. He is well known to Dr. Matoe Pena with a diagnosis of a poorly differentiated squamous cell cancer of the base of tongue, initially diagnosed in 06/2017. He has metastatic disease to the right upper cervical lymph node. He is receiving concurrent chemotherapy and radiation after a dose of induction. He is tolerating the treatment well with regression of the tumor at the base of tongue and the lymph node at the right neck. His course was complicated by poor social support. Apparently, his daughter has moved in with someone else. He is living alone. He finds it difficult to give himself PEG tube feeding for support. He has difficulty swallowing in light of his treatment to the head and neck area. He has renal insufficiency and has worsened p.o. intake. He is receiving concurrent chemotherapy and radiation. He developed cytopenias and chemotherapy was held due to the cytopenias. He, however, is able to continue with radiation treatment. In light of his toxicity, he was advised by Dr. Pena to come into the hospital. He has been offered hydration in the clinic. He apparently presented on 10/09/2017. He was noted to have pancytopenia with a white blood cell count 2.2, hemoglobin 8.7, platelet count on the lower side of normal, and 57. He has a lot of symptoms related to his head and neck cancer and toxicity from treatment. He is admitted and hematology/oncology is consulted. Laboratory evaluation shows a white blood cell count of 2.0, hemoglobin 8.1, platelet count of 166. His ANC is 1300. He feels very weak. His GFR was 27% on admission. With hydration, it improved to 33%. He has a poor p.o. intake. He feels dizzy and weak. He is tolerating his treatment. Also, has pain related to his treatment. PAST MEDICAL HISTORY: Agent [place] exposure, stage IV head and neck cancer, anxiety, arthritis, prostate cancer, hepatitis C, chronic kidney disease, history of MRSA related osteomyelitis, multiple dental caries, PTSD. PAST SURGICAL HISTORY: Ankle surgery, implant in right orbit, right skull fracture, ORIF, shoulder surgery, [id number] placement, right cervical lymph node biopsy. FAMILY HISTORY: Both parents are . SOCIAL HISTORY: He is a retired [employer]. He no longer smokes. He drinks occasionally. Denies any illicit drug use. He has a 9-year-old daughter that lives with someone else at present. PHYSICAL EXAMINATION: VITAL SIGNS: Temperature 98.7, heart rate 53, respiratory rate 14. Blood pressure 187/81, saturation 99%. GENERAL: Mr. Beard is a cachectic appearing, elderly man who looks older than his stated age. He has bitemporal wasting. SKIN: Dry. NECK: With hyperpigmentation and erythema from radiation. HEENT: His pupils are round, reactive to light and accommodation. Oropharynx with dry mucosa. NECK: Supple. Right neck adenopathy looks better than previous examination. LUNGS: Diminished breath sounds throughout. CARDIOVASCULAR: Reveals mild bradycardia. EXTREMITIES: Left upper quadrant PEG tube is in place. Lower extremity with no edema. NEUROLOGIC: Nonfocal. LABORATORY DATA: As described above. ASSESSMENT AND PLAN: Mr. Beard is a 62-year-old man with multiple medical problems described above. He is well known patient to Dr. Mateo Pena with a lymph node positive poorly differentiated squamous cell cancer of the base of tongue. He is undergoing concurrent chemotherapy and radiation. I had a lengthy discussion with Mr. Beard, the importance of continuing his treatment without interruption. His carboplatin and Taxol dose was held due to cytopenias. Defer to Dr. Pena for continued radiation sensitizing chemotherapy depending on his counts. I discussed with the patient that the cytopenias are signs of radiation sensitizing chemotherapy. It was explained to the patient that the neutropenia is a dose limiting toxicity. We need to wait for his counts to recover before next dose of radiation sensitizing chemo can be administered. However, in the meantime, it is important for him to continue his radiation therapy. Case management has been consulted. He is intent on going into [facility] as he has done previously. He has difficulty in managing his symptoms related to the treatment. He has no support for his nutrition such as the PEG tube feeding. We will consult with a Dietary to start his PEG tube feeding. He may start with bolus feeding for nutrition. He is insisting on trying to take p.o.; however, his p.o. intake, probably fails short of his caloric requirements daily. Thus, his weight loss. We will continue to monitor his renal function. He has been offered hydration by Dr. Pena. He will continue to receive hydration. We will transfer him to oncology floor. We will monitor for fevers. MD ZANDER Acevedo/MARTIN , 02:52 PM , 04:05 PM
[2017-10-10] MEDS: Enoxaparin Inj 30 MG/0.3 ML Syringe SQ SCH (21:32)
[2017-10-11] MEDS: HYDROmorphone PF Inj 2 MG/ML Vial IV.PUSH PRN ×4 (01:51→20:49)
[2017-10-11] MEDS: Sod Chloride 0.9% Inj 1,000 ML IV.CONT SCH ×3 (01:58→22:41)
[2017-10-11] MEDS: Acetaminophen 325 MG Tablet PO SCH ×4 (05:06→20:53)
--- NOTE | 2017-10-11 08:12 | P.PNONC ---
Subjective Interval history: Patient seen and examined, vital signs, labs, medications and progress note/ consultation is reviewed. Subjectively; the patient reports pain with swallowing and generalized weakness and fatigue. He tells me he can barely stand up and walk. He is curious to know where he may be transferred to specifically which longterm facility. He tells me he is unable to care for himself at home and for this reason would like to be transferred to a longterm facility where he can be fed and get assistance with transport to and from chemotherapy and radiation. Overnight; the patient was noted to be hypertensive. He was given at least one dose of clonidine for a systolic blood pressure of approximately 200 mmHg. His blood pressure did not have a very significant response to this and he remains hypertensive at this time. The nursing staff tells me he has a room upstairs but currently we are awaiting improvement in his blood pressure before transfer. Objective Vital Signs/Intake & Output: Vital Signs 10/10/17 11:48 10/10/17 16:00 10/10/17 20:00 Temperature 98.7 F 98.7 F 98.7 F Pulse Rate 53 L 50 L 53 L Respiratory Rate 14 14 15 Blood Pressure 187/81 H 194/93 H 225/105 H Pulse Oximetry 99 100 99 10/11/17 00:00 10/11/17 04:00 10/11/17 07:10 Temperature 98.6 F 98.3 F 98.3 F Pulse Rate 58 L 48 L 64 Respiratory Rate 16 16 18 Blood Pressure 160/77 H 189/86 H 200/95 H Pulse Oximetry 96 96 99 Intake & Output 10/10/17 10/11/17 10/11/17 18:59 06:59 18:59 Intake Total 1000 / 1000 1000 / 1000 Balance 1000 / 1000 1000 / 1000 Intake: IV 1000 / 1000 1000 / 1000 NS Inj 1,000 ML @ 100 mls/hr IV 1000 / 1000 1000 / 1000 .CONT .Q10H [facility] Rx#:[id number] Result Diagrams: 10/10/17 13:00 10/10/17 13:00 Laboratory Results: Laboratory Results - last 24 hr 10/10/17 10/10/17 13:00 13:00 WBC 2.0 L RBC 2.81 L Hgb 8.1 L Hct 23.9 L MCV 85.0 MCH 28.7 MCHC 33.8 RDW 17.7 H Plt Count 166 MPV 6.7 L Neut % (Auto) 65.1 Lymph % (Auto) 19.2 [place] % (Auto) 9.4 H Eos % (Auto) 5.6 H Baso % (Auto) 0.7 Neut # (Auto) 1.3 L Lymph # (Auto) 0.4 L [place] # (Auto) 0.2 Eos # (Auto) 0.1 Baso # (Auto) 0.0 WBC Differential . Differential Comment Auto diff final Sodium 143 Potassium 4.7 Chloride 110 H Carbon Dioxide 23.8 Anion Gap 9 BUN 31 H Creatinine 2.07 H Estimated GFR 33 L Random Glucose 103 Calcium 8.5 Total Bilirubin 0.2 AST 31 ALT 34 Alkaline Phosphatase 120 H Total Protein 6.4 D Albumin 2.4 L Culture Results: Microbiology 10/09/17 12:40 Aerobic Blood Culture - Preliminary Blood - Peripheral No growth in 1 day Anaerobic Blood Culture - Preliminary No growth in 1 day 10/09/17 12:40 Aerobic Blood Culture - Preliminary Blood - Peripheral No growth in 1 day Anaerobic Blood Culture - Preliminary No growth in 1 day Medications: Active Medications Generic Name Dose Route Start Last Admin Trade Name Freq PRN Reason Stop Dose Admin Acetaminophen 650 mg 10/09/17 20:00 10/11/17 05:06 Tylenol PO Not Given Q6H TONY Enoxaparin Sodium 30 mg 10/09/17 20:00 10/10/17 21:32 Lovenox Inj SQ 30 mg Q24H TONY Administration Hydromorphone HCl 1 mg 10/09/17 20:00 10/11/17 07:24 Dilaudid Pf Inj IV.PUSH 1 mg Q3H PRN Administration BREAKTHROUGH PAIN Sodium Chloride 1,000 mls @ 100 mls/hr 10/09/17 20:00 10/11/17 01:58 Ns Inj IV.CONT 100 mls/hr .Q10H TONY Administration Lisinopril 10 mg 10/10/17 09:00 10/10/17 08:50 Prinivil PO 10 mg DAILY TONY Administration Ondansetron HCl 4 mg 10/10/17 19:30 10/11/17 07:24 Zofran Odt PO 4 mg Q6H PRN Administration NAUSEA OR VOMITING Oxycodone HCl 20 mg 10/10/17 09:15 10/11/17 05:17 Roxicodone PO Not Given Q4H TONY Sodium Chloride 2 ml 10/09/17 21:00 10/10/17 23:47 Ns Flush IV.FLUSH 2 ml BID TONY Administration Objective Remarks: GENERAL: Middle-aged male, appears older than his stated age. He sitting up in bed, he appears to be comfortable. He generally has decreased muscle mass and appears to be chronically ill and near cachectic. SKIN: Warm and dry. HEAD: Normocephalic. EYES: No scleral icterus. No injection or drainage. Oropharynx: No obvious masses identified no ulceration or mucositis. NECK: 2.5 cm mass involving the right upper cervical lymph node chain. Radiation related changes involving the right side of the neck. LYMPHATIC: Pathologically enlarged right upper cervical lymph node. CARDIOVASCULAR: Regular rate and rhythm without murmurs. RESPIRATORY: Breath sounds equal bilaterally. No accessory muscle use. GASTROINTESTINAL: Abdomen soft, non-tender, nondistended. Feeding tube in place. EXTREMITIES: Atrophic muscles, decreased muscle mass. MUSCULOSKELETAL: Decreased muscle mass and tone. NEUROLOGICAL: No obvious focal deficit. Awake, alert, and oriented x3. PSYCHIATRIC: Appropriate mood and affect; insight and judgment normal. Assessment/Plan (1) Squamous cell carcinoma of pharynx Code(s): C14.0 - Malignant neoplasm of pharynx, unspecified Status: Chronic (2) Leukopenia due to antineoplastic chemotherapy Code(s): D70.1 - Agranulocytosis secondary to cancer chemotherapy; T45.1X5A - Adverse effect of antineoplastic and immunosuppressive drugs, initial encounter Status: Acute (3) Anemia Code(s): D64.9 - Anemia, unspecified Status: Acute (4) Chronic kidney disease Code(s): N18.9 - Chronic kidney disease, unspecified Status: Acute - Plan Mr. 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 The primary tumor involves the right base of the tongue and has biopsy-proven metastases to a right upper cervical lymph node. He is presently on combined systemic chemotherapy with radiation (he has been receiving weekly carboplatin and Taxol) . Based on clinical examination as well as radiographic imaging studies he has had a positive response to treatment. He is approximately [facility] through radiation treatments thus far and has approximately 14 fractions remaining. Mr. Beard has struggled greatly with keeping up with IV fluid hydration as well as caloric requirements while on treatment. He has lost in excess of 25-30 pounds over the past 4 weeks due to protein calorie malnutrition. This is despite a feeding tube which has been in place. The patient tells me he just is unable to manage his feeding tube and as treatment progresses it is becoming increasingly more difficult for him to swallow due to pain. Additionally, Mr. Beard has extremely poor social support, he had been a sole caregiver to his 9-year-old daughter and has nobody else to care for him. Last week, I saw the patient in clinic, he appeared to be clinically dehydrated and somewhat disheveled. Blood work indicated acute on chronic renal failure, the patient's creatinine was in excess of 3.5 whereas his baseline is closer to 1.6. He was given IV fluid hydration in clinic with improvement of his creatinine levels. Additionally he has cytopenias also likely related in part to chemotherapy related myelosuppression. I suspect chronic renal failure is also contributing to his anemia. Plan: 1. Oropharyngeal Squamous cell carcinoma: The case has been discussed with Dr. Martinez of radiation oncology. For the time being we will give Mr. Beard some time off of therapy to allow him to recover his cell counts and also allow him some reprieve so his nutritional status may improve. He will be reassessed later this week to determine if he is ready to resume therapy. 2. Mr. Beard will benefit from placement to a nursing facility. At the nursing facility he will reliably receive tube feeding and will also have reliable transport to and from the oncology clinic where he will be receiving chemotherapy and radiation. 3. Acute on chronic renal failure: His renal function is significantly improved with IV fluid hydration. 4. Anemia: Likely related to renal insufficiency as well as chemotherapy associated myelosuppression. Erythropoiesis stimulating agents should be avoided. Symptomatic anemia ought to be treated with red cell transfusions. 5. Nutrition: On tube feeds, additionally he is able to tolerate oral nutrition which should be encouraged as well. Appreciate the assistance of the family medicine service. Plans for transfer to the inpatient unit are noted. Should transfer to longterm facility be delayed until mid week or later I will dose carboplatin and Taxol in the inpatient setting before transferring him out if he is assessed to be an appropriate candidate for inpatient chemotherapy. (3) Anemia Qualifiers: Anemia type: unspecified type Qualified Code(s): D64.9 - Anemia, unspecified (4) Chronic kidney disease Qualifiers: Chronic kidney disease stage: stage 4 (severe) Qualified Code(s): N18.4 - Chronic kidney disease, stage 4 (severe)
[2017-10-11] MEDS: Lisinopril 10 MG Tablet PO SCH (08:14)
[2017-10-11] MEDS: hydrALAZINE 50 MG Tablet PO SCH ×3 (09:02→22:39)
[2017-10-11 12:01] LABS: Hematocrit 22.1 % (39.0-51.0); Hemoglobin 7.6 gm/dL (13.0-17.0); Mean Corpuscular HGB Conc 34.2 % (32.0-36.0); Mean Corpuscular Hemoglobin 28.9 pg (27.0-34.0); Mean Corpuscular Volume 84.4 fL (80.0-100.0); Mean Platelet Volume 6.6 fL (7.0-11.0); Platelet Count 168 th/mm3 (150-450); Red Blood Count 2.62 mil/mm3 (4.50-5.90); Red Cell Distribution Width 17.8 % (11.6-17.2)
--- NOTE | 2017-10-11 12:16 | P.PNFP ---
Subjective Interval history: Patient seen and examined this morning. He is still having pain in his neck. States that the current regimen management is not working for him. He also had a bout of vomiting last night after he had eaten by mouth and then was given a tube feeding. Since then, no nausea or vomiting. No fever /chills, no chest pain, shortness of breath, no abdominal pain, urinating and stooling well. <Nora Boateng - 10/11/17 13:53> Results - Labs Result diagrams: 10/11/17 11:37 10/11/17 11:37 <Shirley Cardona - 10/11/17 20:27> Abnormal lab results 10/11/17 10/11/17 10/11/17 Range/Units 11:37 11:37 12:50 WBC 2.0 L (4.0-11.0) th/mm3 RBC 2.62 L (4.50-5.90) mil/mm3 Hgb 7.6 L (13.0-17.0) gm/dL Hct 22.1 L (39.0-51.0) % RDW 17.8 H (11.6-17.2) % MPV 6.6 L (7.0-11.0) fL Chloride 109 H (98-107) meq/L BUN 26 H (7-18) mg/dL Creatinine 2.00 H (0.60-1.30) mg/dL Estimated GFR 34 L (>89) mL/min Calcium 8.0 L (8.5-10.1) mg/dL MTS Gel Crossmatch See Detail Short CBC 10/11/17 Range/Units 11:37 WBC 2.0 L (4.0-11.0) th/mm3 Hgb 7.6 L (13.0-17.0) gm/dL Hct 22.1 L (39.0-51.0) % Plt Count 168 (150-450) th/mm3 BMP 10/11/17 11:37 Sodium 142 Potassium 4.4 Chloride 109 H Carbon Dioxide 25.1 BUN 26 H Creatinine 2.00 H Calcium 8.0 L <Shirley Cardona - 10/11/17 20:27> Abnormal lab results 10/10/17 10/10/17 10/11/17 Range/Units 13:00 13:00 11:37 WBC 2.0 L 2.0 L (4.0-11.0) th/mm3 RBC 2.81 L 2.62 L (4.50-5.90) mil/mm3 Hgb 8.1 L 7.6 L (13.0-17.0) gm/dL Hct 23.9 L 22.1 L (39.0-51.0) % RDW 17.7 H 17.8 H (11.6-17.2) % MPV 6.7 L 6.6 L (7.0-11.0) fL [place] % (Auto) 9.4 H (0.0-8.0) % Eos % (Auto) 5.6 H (0.0-4.0) % Neut # (Auto) 1.3 L (1.8-7.7) th/mm3 Lymph # (Auto) 0.4 L (1.0-4.8) th/mm3 Chloride 110 H (98-107) meq/L BUN 31 H (7-18) mg/dL Creatinine 2.07 H (0.60-1.30) mg/dL Estimated GFR 33 L (>89) mL/min Alkaline Phosphatase 120 H (45-117) U/L Albumin 2.4 L (3.4-5.0) g/dL Short CBC 10/10/17 10/11/17 Range/Units 13:00 11:37 WBC 2.0 L 2.0 L (4.0-11.0) th/mm3 Hgb 8.1 L 7.6 L (13.0-17.0) gm/dL Hct 23.9 L 22.1 L (39.0-51.0) % Plt Count 166 168 (150-450) th/mm3 [facility] 10/10/17 13:00 Sodium 143 Potassium 4.7 Chloride 110 H Carbon Dioxide 23.8 BUN 31 H Creatinine 2.07 H Calcium 8.5 Liver Function 10/10/17 Range/Units 13:00 Total Bilirubin 0.2 (0.2-1.0) mg/dL AST 31 (15-37) U/L ALT 34 (12-78) U/L Alkaline Phosphatase 120 H (45-117) U/L Albumin 2.4 L (3.4-5.0) g/dL <Nora Boateng G - 10/11/17 12:16> Physical Exam Vital signs: Vital Signs 10/11/17 00:00 10/11/17 04:00 10/11/17 07:10 Temperature 98.6 F 98.3 F 98.3 F Pulse Rate 58 L 48 L 64 Respiratory Rate 16 16 18 Blood Pressure 160/77 H 189/86 H 200/95 H Pulse Oximetry 96 96 99 10/11/17 10:04 10/11/17 11:11 10/11/17 11:52 Temperature 98.5 F Pulse Rate 120 H Respiratory Rate 20 Blood Pressure 188/87 H 178/84 H 161/86 H Pulse Oximetry 99 10/11/17 12:00 10/11/17 15:14 10/11/17 15:33 Temperature 97.8 F 97.5 F L Pulse Rate 58 L 60 59 L Respiratory Rate 20 18 Blood Pressure 138/78 141/80 H Pulse Oximetry 100 100 10/11/17 16:00 10/11/17 18:35 Temperature 98.2 F Pulse Rate 57 L 63 Respiratory Rate Blood Pressure 140/73 Pulse Oximetry 100 Intake & Output 10/11/17 10/11/17 10/12/17 06:59 18:59 06:59 Intake Total 1000 / 1000 1400 / 1400 Balance 1000 / 1000 1400 / 1400 Intake: IV 1000 / 1000 1000 / 1000 NS Inj 1,000 ML @ 100 mls/hr IV 1000 / 1000 1000 / 1000 .CONT .Q10H [facility] Rx#:[id number] Intake (Blood Product) Amt 400 / 400 Rbc As-3 Leukoreduced Unit 400 / 400 [id number] Other: # Voids 6 Date of Last Bowel Movement 10/11/17 <Shirley Cardona - 10/11/17 20:27> Vital Signs 10/10/17 16:00 10/10/17 20:00 10/11/17 00:00 Temperature 98.7 F 98.7 F 98.6 F Pulse Rate 50 L 53 L 58 L Respiratory Rate 14 15 16 Blood Pressure 194/93 H 225/105 H 160/77 H Pulse Oximetry 100 99 96 10/11/17 04:00 10/11/17 07:10 10/11/17 10:04 Temperature 98.3 F 98.3 F Pulse Rate 48 L 64 Respiratory Rate 16 18 Blood Pressure 189/86 H 200/95 H 188/87 H Pulse Oximetry 96 99 10/11/17 11:11 10/11/17 11:52 Temperature 98.5 F Pulse Rate 120 H Respiratory Rate 20 Blood Pressure 178/84 H 161/86 H Pulse Oximetry 99 Intake & Output 10/10/17 10/11/17 10/11/17 18:59 06:59 18:59 Intake Total 1000 / 1000 1000 / 1000 1000 / 1000 Balance 1000 / 1000 1000 / 1000 1000 / 1000 Intake: IV 1000 / 1000 1000 / 1000 1000 / 1000 NS Inj 1,000 ML @ 100 mls/hr IV 1000 / 1000 1000 / 1000 1000 / 1000 .CONT .Q10H [facility] Rx#:[id number] Other: Date of Last Bowel Movement 10/11/17 <Nora Boateng - 10/11/17 12:16> Narrative: GENERAL: Cachectic white male who looks older than his stated age, laying in bed, in no acute distress SKIN: Warm and dry. HEAD: Atraumatic. Normocephalic. EYES: No scleral icterus. No injection or drainage. ENT: No nasal bleeding or discharge. NECK: Trachea midline. No JVD. CARDIOVASCULAR: Regular rate and rhythm. RESPIRATORY: No accessory muscle use. Clear to auscultation. Breath sounds equal bilaterally. GASTROINTESTINAL: Abdomen soft, non-tender, nondistended. PEG tube in place, no signs of infections, no erythema or warmth, no drainage. MUSCULOSKELETAL: Extremities without cyanosis, or edema. No obvious deformities. Slight clubbing of the fingers bilaterally. NEUROLOGICAL: Awake and alert. No obvious cranial nerve deficits. Motor grossly within normal limits. Normal speech. PSYCHIATRIC: Appropriate mood and affect; insight and judgment normal. <KiloNora G - 10/11/17 13:53> Assessment and Plan - Assessment (1) Leukopenia due to antineoplastic chemotherapy Code(s): D70.1 - Agranulocytosis secondary to cancer chemotherapy; T45.1X5A - Adverse effect of antineoplastic and immunosuppressive drugs, initial encounter Status: Acute (2) Neck pain on right side Code(s): M54.2 - Cervicalgia Status: Acute (3) Anemia Code(s): D64.9 - Anemia, unspecified Status: Acute (4) Squamous cell carcinoma of pharynx Code(s): C14.0 - Malignant neoplasm of pharynx, unspecified Status: Chronic (5) Nausea & vomiting Code(s): R11.2 - Nausea with vomiting, unspecified Status: Acute (6) Chronic kidney disease Code(s): N18.9 - Chronic kidney disease, unspecified Status: Acute (7) Hypertension Code(s): I10 - Essential (primary) hypertension Status: Chronic (8) Hepatitis C Code(s): B19.20 - Unspecified viral hepatitis C without hepatic coma Status: Chronic (9) Nutrition, metabolism, and development symptoms Code(s): R63.8 - Other symptoms and signs concerning food and fluid intake Status: Acute <Shirley Cardona - 10/11/17 20:27> (1) Leukopenia due to antineoplastic chemotherapy Code(s): D70.1 - Agranulocytosis secondary to cancer chemotherapy; T45.1X5A - Adverse effect of antineoplastic and immunosuppressive drugs, initial encounter Status: Acute Plan: WBC count on admission was 2.2, ANC calculated as 1562. 7/16 WBC count currently at 2.0 with a slight trend downward from admission. Patient is at risk for potentially fatal infection due to low WBC count: Patient is currently afebrile. -Monitor for signs of sepsis (fever, tachycardia) -If patient becomes febrile, will likely start antibiotics. -Dr. Pena of Heme Onc Consulted, appreciate recommendations -Cytopenia likely related in part to chemotherapy related myelosuppression -Neutropenic precautions -Recheck CBC with diff in AM -Case Management Involved to help with shelter placement (2) Neck pain on right side Code(s): M54.2 - Cervicalgia Status: Acute Plan: Secondary to metastatic head and neck cancer and hx of cervical fusion. Home oxycodone 20mg Q4 hours scheduled; Dilaudid increased to 2mg for breakthrough. Will continue to adjust medications as needed. (3) Anemia Code(s): D64.9 - Anemia, unspecified Status: Acute Plan: Normocytic Anemia Hb: 8.7, MCV:85.1 on admission. Likely due to CKD. -Consider transfusion if Hb is under 7 -Continue to Monitor. Hemodynamically stable at this time. (4) Squamous cell carcinoma of pharynx Code(s): C14.0 - Malignant neoplasm of pharynx, unspecified Status: Chronic Plan: Diagnosed and Started on Chemotherapy in June 2017. CT of Neck shows decrease in size of primary mass in tongue base and vallecula -Treated by Dr. Pena of Heme Onc (currently consulted) and Dr. Martinez of Radiation Oncology -Time off from therapy to be given (5) Nausea & vomiting Code(s): R11.2 - Nausea with vomiting, unspecified Status: Acute Plan: Symptoms started after beginning chemotherapy: Most likely etiology. -Zofran 4mg odt PRN -Affecting Nutritional Status (6) Chronic kidney disease Code(s): N18.9 - Chronic kidney disease, unspecified Status: Acute Plan: Possibly Stage 3/4 CKD -Isolated Proteinuria, GFR:27, BUN:39,Cr:2.44 -Pt states to have low frequency urination. -I&Os -Continue to Monitor (7) Hypertension Code(s): I10 - Essential (primary) hypertension Status: Chronic Plan: Continue home medications and monitor. Patient's blood pressure elevated to the 220s/100s overnight -Lisinopril 10 p.o. daily -Nifedipine 60 mg p.o. every 12 hours -Hydralazine 50 mg p.o. every 8 hours -Clonidine 0.1 mg p.o. every 6 hours as needed for BP >180/100 -Will continue to add back home medications as needed (8) Hepatitis C Code(s): B19.20 - Unspecified viral hepatitis C without hepatic coma Status: Chronic Plan: Pt with hx of Hepatitis C. LFTs at admission WNL. (9) Nutrition, metabolism, and development symptoms Code(s): R63.8 - Other symptoms and signs concerning food and fluid intake Status: Acute Plan: Patient is Cachectic, most likely due to chemotherapy, increased nausea/ vomiting and peg tube issues. -Fluids: NS 0/9% at 100 mls/hr -Electrolytes: Monitor and Replete PRN -Diet:Regular. Consulted Dietitian for further evaluation on peg tube feeding ( and patient education regarding PEG tube) and poor po intake Recommendations for TF options: 1. Two Khalif HN with goal rate of 70 ml/hr for 14 hrs (6pm-8am) Regular diet throughout the day with Ensure tid 2. Two Khalif HN bolus feeds: 4 cans/day suggested 7am, 11am, 3pm, 7pm 30 mls free water flushes before and after bolus feeds Regular meals in between with Ensure tid <Cordell Boatengin Carlito - 10/11/17 14:00> - Assessment and Plan 62-year-old white male with past medical history of hypertension, metastatic squamous cell carcinoma of the oropharynx presenting with neutropenia. Admitted for observation. Patient desires to go to rehab, will work with case management to see if this is possible. <Nora Boateng - 10/11/17 14:22> Discussed Condition With: Dr. Navneet Iqbal <[place] CenterCordellNora G - 10/11/17 14:22> - Attending Attestation Patient seen and examined this morning, discussed with resident team. I agree with assessment and management as documented and discussed with me. Kwadwo Beard is a 62yo gentleman with poorly differentiated squamous cell CA at the base of his tongue admitted for acute on chronic kidney failure, leukopenia , and intractable pain. He is being admitted to inpatient status today for continued stay/symptoms. He has not been eating much and is unable to use his PEG tube well, which has led to dehydration/worsening renal function. ROS: + neck pain. No fatigue, no SOB. All other systems reviewed are negative. PMH/PSxH/FamHx/SocHx: CAD, HTN, PTSD, osteomyelitis, hepatitis C, cancer as mentioned previously. Peg tube placement, port placement, C spine surgery. Fam hx of pneumonia. He lives with his 9yo daughter. Quit smoking recently, but has 25 pack year smoking history. I certify that the inpatient services were ordered in accordance with Medicare regulations governing the order. This includes certification that hospital inpatient services are reasonable and necessary and in the case of services not specified as inpatient-only under 42 CFR 419.22(n), that they are appropriately provided as inpatient services in accordance to with the 2-midnight benchmark under 43 CFR 412.3(e) <Shirley Cardona - 10/11/17 20:25> <Nora Boateng G - Last Filed: 10/11/17 14:00> (3) Anemia Qualifiers: Anemia type: unspecified type Qualified Code(s): D64.9 - Anemia, unspecified (5) Nausea & vomiting Qualifiers: Vomiting type: unspecified Vomiting Intractability: non-intractable Qualified Code(s): R11.2 - Nausea with vomiting, unspecified (6) Chronic kidney disease Qualifiers: Chronic kidney disease stage: stage 4 (severe) Qualified Code(s): N18.4 - Chronic kidney disease, stage 4 (severe) (7) Hypertension Qualifiers: Hypertension type: essential hypertension Qualified Code(s): I10 - Essential (primary) hypertension (8) Hepatitis C Qualifiers: Viral hepatitis chronicity: chronic <Shirley Cardona - Last Filed: 10/11/17 20:27> (3) Anemia Qualifiers: Anemia type: unspecified type Qualified Code(s): D64.9 - Anemia, unspecified (5) Nausea & vomiting Qualifiers: Vomiting type: unspecified Vomiting Intractability: non-intractable Qualified Code(s): R11.2 - Nausea with vomiting, unspecified (6) Chronic kidney disease Qualifiers: Chronic kidney disease stage: stage 4 (severe) Qualified Code(s): N18.4 - Chronic kidney disease, stage 4 (severe) (7) Hypertension Qualifiers: Hypertension type: essential hypertension Qualified Code(s): I10 - Essential (primary) hypertension (8) Hepatitis C Qualifiers: Viral hepatitis chronicity: chronic <Nora Boateng - Last Filed: 10/11/17 14:00> (3) Anemia Qualifiers: Anemia type: unspecified type Qualified Code(s): D64.9 - Anemia, unspecified (5) Nausea & vomiting Qualifiers: Vomiting type: unspecified Vomiting Intractability: non-intractable Qualified Code(s): R11.2 - Nausea with vomiting, unspecified (6) Chronic kidney disease Qualifiers: Chronic kidney disease stage: stage 4 (severe) Qualified Code(s): N18.4 - Chronic kidney disease, stage 4 (severe) (7) Hypertension Qualifiers: Hypertension type: essential hypertension Qualified Code(s): I10 - Essential (primary) hypertension (8) Hepatitis C Qualifiers: Viral hepatitis chronicity: chronic <Shirley Cardona - Last Filed: 10/11/17 20:27> (3) Anemia Qualifiers: Anemia type: unspecified type Qualified Code(s): D64.9 - Anemia, unspecified (5) Nausea & vomiting Qualifiers: Vomiting type: unspecified Vomiting Intractability: non-intractable Qualified Code(s): R11.2 - Nausea with vomiting, unspecified (6) Chronic kidney disease Qualifiers: Chronic kidney disease stage: stage 4 (severe) Qualified Code(s): N18.4 - Chronic kidney disease, stage 4 (severe) (7) Hypertension Qualifiers: Hypertension type: essential hypertension Qualified Code(s): I10 - Essential (primary) hypertension (8) Hepatitis C Qualifiers: Viral hepatitis chronicity: chronic
[2017-10-11 12:24] LABS: Carbon Dioxide 25.1 meq/L (21.0-32.0); Potassium 4.4 meq/L (3.5-5.1)
[2017-10-11] MEDS ORDERED: HYDROmorphone PF Inj 2 MG/ML Vial IV.PUSH PRN ×2 (13:20→16:05)
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
[2017-10-11] MEDS ORDERED: Acetaminophen 325 MG Tablet PO PRN (14:26)
[2017-10-11] MEDS: Enoxaparin Inj 30 MG/0.3 ML Syringe SQ SCH (20:54)
[2017-10-12] MEDS: HYDROmorphone PF Inj 2 MG/ML Vial IV.PUSH PRN ×6 (00:32→21:14)
[2017-10-12] MEDS: Acetaminophen 325 MG Tablet PO SCH ×4 (03:14→21:16)
[2017-10-12 06:01] LABS: Baso % (Auto) 0.2 % (0.0-2.0); Eos # (Auto) 0.1 th/mm3 (0.0-0.4); Eos % (Auto) 3.5 % (0.0-4.0); Hematocrit 25.7 % (39.0-51.0); Hemoglobin 8.8 gm/dL (13.0-17.0); Lymph # (Auto) 0.3 th/mm3 (1.0-4.8); Mean Corpuscular HGB Conc 34.3 % (32.0-36.0); Mean Corpuscular Volume 84.5 fL (80.0-100.0); Mono # (Auto) 0.2 th/mm3 (0.0-0.9); Mono % (Auto) 6.1 % (0.0-8.0); Neut # (Auto) 2.9 th/mm3 (1.8-7.7); Neut % (Auto) 81.2 % (16.0-70.0); Platelet Count 192 th/mm3 (150-450); Red Blood Count 3.04 mil/mm3 (4.50-5.90); White Blood Count 3.6 th/mm3 (4.0-11.0)
[2017-10-12 06:21] LABS: Albumin 2.4 g/dL (3.4-5.0); Anion Gap 8 meq/L (5-15); Aspartate Aminotransferase 31 U/L (15-37); Blood Urea Nitrogen 25 mg/dL (7-18); Calcium 8.2 mg/dL (8.5-10.1); Carbon Dioxide 25.8 meq/L (21.0-32.0); Chloride 108 meq/L (98-107); Glomerular Filtration Rate 36 mL/min (>89); Glucose,Random 127 mg/dL (74-106); Potassium 4.4 meq/L (3.5-5.1); Sodium 142 meq/L (136-145)
[2017-10-12 06:22] LABS: Alanine Aminotransferase 36 U/L (12-78)
[2017-10-12 06:24] LABS: Alkaline Phosphatase 131 U/L (45-117); Total Protein 6.3 g/dL (6.4-8.2)
[2017-10-12] MEDS: hydrALAZINE 50 MG Tablet PO SCH ×3 (06:46→21:15)
--- NOTE | 2017-10-12 08:09 | P.PNONC ---
Subjective Interval history: Patient seen and examined, vital signs, labs, occasions I's and O's were reviewed. Program Scheduler notes reviewed as well. Subjectively; patient reports feeling improved, he tells me he feels more energy with appropriate nourishment and nutrition. He is on tube feeds and is also trying to eat the best he can. He tells me he does best with semisolid foods such as oatmeal. He did receive 1 unit packed red blood cells yesterday. Overnight he has had low-grade temperatures of up to 100F. Objective Vital Signs/Intake & Output: Vital Signs 10/11/17 10:04 10/11/17 11:11 10/11/17 11:52 Temperature 98.5 F Pulse Rate 120 H Respiratory Rate 20 Blood Pressure 188/87 H 178/84 H 161/86 H Pulse Oximetry 99 10/11/17 12:00 10/11/17 15:14 10/11/17 15:33 Temperature 97.8 F 97.5 F L Pulse Rate 58 L 60 59 L Respiratory Rate 20 18 Blood Pressure 138/78 141/80 H Pulse Oximetry 100 100 10/11/17 16:00 10/11/17 18:35 10/11/17 20:03 Temperature 98.2 F Pulse Rate 57 L 63 71 Respiratory Rate Blood Pressure 140/73 Pulse Oximetry 100 10/11/17 20:39 10/11/17 22:39 10/12/17 00:13 Temperature 99.9 F H Pulse Rate 70 77 Respiratory Rate 18 18 Blood Pressure 178/78 H Pulse Oximetry 99 10/12/17 00:25 10/12/17 00:33 10/12/17 03:11 Temperature 100.1 F H 100 F H Pulse Rate 81 79 Respiratory Rate 18 18 18 Blood Pressure 164/87 H 148/69 H Pulse Oximetry 98 98 10/12/17 04:07 Temperature Pulse Rate 77 Respiratory Rate Blood Pressure Pulse Oximetry Intake & Output 10/11/17 10/12/17 10/12/17 18:59 06:59 18:59 Intake Total 1400 / 1400 2675 / 2675 Output Total 1350 / 1350 Balance 1400 / 1400 1325 / 1325 Weight 56.5 kg Intake: IV 1000 / 1000 1000 / 1000 NS Inj 1,000 ML @ 100 mls/hr IV 1000 / 1000 1000 / 1000 .CONT .Q10H TONY Rx#:[id number] Oral 660 / 660 Tube Feeding 745 / 745 Tube Irrigant 270 / 270 Intake (Blood Product) Amt 400 / 400 Rbc As-3 Leukoreduced Unit 400 / 400 [id number] Output: Urine 1350 / 1350 Other: # Voids 6 Date of Last Bowel Movement 10/11/17 10/11/17 Result Diagrams: 10/12/17 04:40 10/12/17 04:40 Laboratory Results: Laboratory Results - last 24 hr 10/11/17 10/11/17 10/11/17 11:37 11:37 12:50 WBC 2.0 L RBC 2.62 L Hgb 7.6 L Hct 22.1 L MCV 84.4 MCH 28.9 MCHC 34.2 RDW 17.8 H Plt Count 168 MPV 6.6 L Neut % (Auto) Lymph % (Auto) [place] % (Auto) Eos % (Auto) Baso % (Auto) Neut # (Auto) Lymph # (Auto) [place] # (Auto) Eos # (Auto) Baso # (Auto) WBC Differential Differential Comment Sodium 142 Potassium 4.4 Chloride 109 H Carbon Dioxide 25.1 Anion Gap 8 BUN 26 H Creatinine 2.00 H Estimated GFR 34 L Random Glucose 99 Calcium 8.0 L Total Bilirubin AST ALT Alkaline Phosphatase Total Protein Albumin Blood Type O Positive Antibody Screen Negative MTS Gel Crossmatch See Detail 10/12/17 10/12/17 04:40 04:40 WBC 3.6 L D RBC 3.04 L Hgb 8.8 L Hct 25.7 L MCV 84.5 MCH 29.0 MCHC 34.3 RDW 17.0 Plt Count 192 MPV 7.0 Neut % (Auto) 81.2 H Lymph % (Auto) 9.0 [place] % (Auto) 6.1 Eos % (Auto) 3.5 Baso % (Auto) 0.2 Neut # (Auto) 2.9 Lymph # (Auto) 0.3 L [place] # (Auto) 0.2 Eos # (Auto) 0.1 Baso # (Auto) 0.0 WBC Differential . Differential Comment Auto diff final Sodium 142 Potassium 4.4 Chloride 108 H Carbon Dioxide 25.8 Anion Gap 8 BUN 25 H Creatinine 1.90 H Estimated GFR 36 L Random Glucose 127 H Calcium 8.2 L Total Bilirubin 0.2 AST 31 ALT 36 Alkaline Phosphatase 131 H Total Protein 6.3 L Albumin 2.4 L Blood Type Antibody Screen MTS Gel Crossmatch Culture Results: Microbiology 10/09/17 12:40 Aerobic Blood Culture - Preliminary Blood - Peripheral No growth in 2 days Anaerobic Blood Culture - Preliminary No growth in 2 days 10/09/17 12:40 Aerobic Blood Culture - Preliminary Blood - Peripheral No growth in 2 days Anaerobic Blood Culture - Preliminary No growth in 2 days Medications: Active Medications Generic Name Dose Route Start Last Admin Trade Name Freq PRN Reason Stop Dose Admin Acetaminophen 650 mg 10/09/17 20:00 10/12/17 03:14 Tylenol PO 650 mg Q6H TONY Administration Acetaminophen 650 mg 10/11/17 14:26 10/11/17 14:32 Tylenol PO 650 mg Q4H PRN Administration SEE LABEL COMMENTS Diphenhydramine HCl 25 mg 10/11/17 14:27 10/11/17 14:35 Benadryl PO 25 mg Q4H PRN Administration SEE LABEL COMMENTS Enoxaparin Sodium 30 mg 10/09/17 20:00 10/11/17 20:54 Lovenox Inj SQ 30 mg Q24H TONY Administration Hydralazine HCl 50 mg 10/11/17 09:00 10/12/17 06:46 Apresoline PO 50 mg Q8HR TONY Administration Hydromorphone HCl 1.5 mg 10/11/17 16:06 10/12/17 04:50 Dilaudid Pf Inj IV.PUSH 1.5 mg Q4H PRN Administration BREAKTHROUGH PAIN Sodium Chloride 1,000 mls @ 100 mls/hr 10/09/17 20:00 10/11/17 22:41 Ns Inj IV.CONT 100 mls/hr .Q10H TONY Administration Lisinopril 10 mg 10/10/17 09:00 10/11/17 08:14 Prinivil PO 10 mg DAILY TONY Administration Nifedipine 60 mg 10/11/17 09:00 10/11/17 20:54 Procardia Xl PO 60 mg Q12HR TONY Administration Ondansetron HCl 4 mg 10/10/17 19:30 10/11/17 07:24 Zofran Odt PO 4 mg Q6H PRN Administration NAUSEA OR VOMITING Oxycodone HCl 30 mg 10/11/17 19:00 10/12/17 06:46 Roxicodone PO 30 mg Q4H TONY Administration Sodium Chloride 2 ml 10/09/17 17:50 10/12/17 00:33 Ns Flush IV.FLUSH 2 ml PRN PRN Administration FLUSH AFTER USING IV ACCESS Sodium Chloride 2 ml 10/09/17 21:00 10/11/17 20:54 Ns Flush IV.FLUSH 2 ml BID TONY Administration Objective Remarks: GENERAL: Middle-aged male, thin and near cachectic appearing. Not acutely distressed has a pleasant disposition. SKIN: Warm and dry. Radiation related changes along the right side of the neck. HEAD: Normocephalic. EYES: No scleral icterus. No injection or drainage. NECK: Pathologically enlarged right sided upper cervical lymph node. LYMPHATIC: pathologically enlarged right upper cervical lymph node. CARDIOVASCULAR: Regular rate and rhythm without murmurs. RESPIRATORY: Breath sounds equal bilaterally. No accessory muscle use good air movement bilaterally. GASTROINTESTINAL: Abdomen soft, non-tender, nondistended. Feeding tube in place. EXTREMITIES: No cyanosis, or edema. MUSCULOSKELETAL: Generally decreased muscle mass and tone. NEUROLOGICAL: No obvious focal deficit. Awake, alert, and oriented x3. PSYCHIATRIC: Appropriate mood and affect; insight and judgment normal. Assessment/Plan (1) Squamous cell carcinoma of pharynx Code(s): C14.0 - Malignant neoplasm of pharynx, unspecified Status: Chronic (2) Leukopenia due to antineoplastic chemotherapy Code(s): D70.1 - Agranulocytosis secondary to cancer chemotherapy; T45.1X5A - Adverse effect of antineoplastic and immunosuppressive drugs, initial encounter Status: Acute (3) Anemia Code(s): D64.9 - Anemia, unspecified Status: Acute (4) Chronic kidney disease Code(s): N18.9 - Chronic kidney disease, unspecified Status: Acute - Plan Mr. 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 The primary tumor involves the right base of the tongue and has biopsy-proven metastases to a right upper cervical lymph node. He is presently on combined systemic chemotherapy with radiation (he has been receiving weekly carboplatin and Taxol) . Based on clinical examination as well as radiographic imaging studies he has had a positive response to treatment. He is approximately long-term through radiation treatments thus far and has approximately 14 fractions remaining. Mr. Beard has struggled greatly with keeping up with IV fluid hydration as well as caloric requirements while on treatment. He has lost in excess of 25-30 pounds over the past 4 weeks due to protein calorie malnutrition. This is despite a feeding tube which has been in place. The patient tells me he just is unable to manage his feeding tube and as treatment progresses it is becoming increasingly more difficult for him to swallow due to pain. Additionally, Mr. Beard has extremely poor social support, he had been a sole caregiver to his 9-year-old daughter and has nobody else to care for him. Last week, I saw the patient in clinic, he appeared to be clinically dehydrated and somewhat disheveled. Blood work indicated acute on chronic renal failure, the patient's creatinine was in excess of 3.5 whereas his baseline is closer to 1.6. He was given IV fluid hydration in clinic with improvement of his creatinine levels. Additionally he has cytopenias also likely related in part to chemotherapy related myelosuppression. I suspect chronic renal failure is also contributing to his anemia. Plan: 1. Oropharyngeal Squamous cell carcinoma: Clinically improved with IV fluid hydration and tube feeding. Labs specifically renal function show significant improvement compared to 1 week ago; his creatinine has improved from 2.5 down to 1.9. The labile nature of his creatinine and renal function indicates the importance of hydration in managing his chronic renal insufficiency. 2. Cytopenias: Related to chemotherapy related myelosuppression as well as likely contribution by chronic renal failure as far as the anemia is concerned. Continue supportive care with red cell transfusion as needed. In addition to managing symptoms of fatigue maintaining a hemoglobin of over 8 g/dL will help manage renal insufficiency by maintaining renal perfusion. 3. Given improvement in his clinical condition and renal function I would like to proceed today with 1 additional dose of carboplatin and paclitaxel systemic chemotherapy. Chemotherapy orders were printed out and doses were personally calculated based on the patient's current renal function and current height and weight. Carboplatin will be dosed at an AUC of 2 which amounts to 105 mg 1 today. Paclitaxel will be dosed at the standard 45 mg per metered squared which amounts to approximately 77 mg today. Orders have been faxed down to the pharmacy. In my opinion he is also appropriate to resume radiation. 4. Disposition: Mr. Beard will benefit most from placement to a [facility] facility where he may reliably receive hydration as well as tube feeding and also where he can expect reliable transportation to and from the oncology center for outpatient systemic chemotherapy and radiation. Appreciate the care rendered by the [facility] medicine inpatient service in the care of this individual with a combination of complicated medical issues. (3) Anemia Qualifiers: Anemia type: unspecified type Qualified Code(s): D64.9 - Anemia, unspecified (4) Chronic kidney disease Qualifiers: Chronic kidney disease stage: stage 4 (severe) Qualified Code(s): N18.4 - Chronic kidney disease, stage 4 (severe)
[2017-10-12] MEDS: Lisinopril 10 MG Tablet PO SCH (08:20)
[2017-10-12] MEDS: Isosorbide Mononitrate 30 MG ER 24HR Tablet (Imdur) PO SCH (09:27)
--- NOTE | 2017-10-12 11:47 | P.PNFP ---
Subjective Interval history: Patient seen and examined this morning. He states that his pain is more tolerable with his new regimen. He was advised by palliative care to try to hold off on using the breakthrough Dilaudid; however, he still feels that he needs to have it. Otherwise, no fevers or chills, no chest pain, no shortness of breath, no abdominal pain, no nausea or vomiting. He is tolerating his continuous feeds. <Nora Boateng - 10/12/17 11:46> Results - Labs Result diagrams: 10/12/17 04:40 10/12/17 04:40 <Shirley Cardona - 10/12/17 20:54> Abnormal lab results 10/12/17 10/12/17 Range/Units 04:40 04:40 WBC 3.6 L D (4.0-11.0) th/mm3 RBC 3.04 L (4.50-5.90) mil/mm3 Hgb 8.8 L (13.0-17.0) gm/dL Hct 25.7 L (39.0-51.0) % Neut % (Auto) 81.2 H (16.0-70.0) % Lymph # (Auto) 0.3 L (1.0-4.8) th/mm3 Chloride 108 H (98-107) meq/L BUN 25 H (7-18) mg/dL Creatinine 1.90 H (0.60-1.30) mg/dL Estimated GFR 36 L (>89) mL/min Random Glucose 127 H (74-106) mg/dL Calcium 8.2 L (8.5-10.1) mg/dL Alkaline Phosphatase 131 H (45-117) U/L Total Protein 6.3 L (6.4-8.2) g/dL Albumin 2.4 L (3.4-5.0) g/dL Short CBC 10/12/17 Range/Units 04:40 WBC 3.6 L D (4.0-11.0) th/mm3 Hgb 8.8 L (13.0-17.0) gm/dL Hct 25.7 L (39.0-51.0) % Plt Count 192 (150-450) th/mm3 BMP 10/12/17 04:40 Sodium 142 Potassium 4.4 Chloride 108 H Carbon Dioxide 25.8 BUN 25 H Creatinine 1.90 H Calcium 8.2 L Liver Function 10/12/17 Range/Units 04:40 Total Bilirubin 0.2 (0.2-1.0) mg/dL AST 31 (15-37) U/L ALT 36 (12-78) U/L Alkaline Phosphatase 131 H (45-117) U/L Albumin 2.4 L (3.4-5.0) g/dL <Shirley Cardona - 10/12/17 20:54> Abnormal lab results 10/11/17 10/11/17 10/11/17 Range/Units 11:37 11:37 12:50 WBC 2.0 L (4.0-11.0) th/mm3 RBC 2.62 L (4.50-5.90) mil/mm3 Hgb 7.6 L (13.0-17.0) gm/dL Hct 22.1 L (39.0-51.0) % RDW 17.8 H (11.6-17.2) % MPV 6.6 L (7.0-11.0) fL Neut % (Auto) (16.0-70.0) % Lymph # (Auto) (1.0-4.8) th/mm3 Chloride 109 H (98-107) meq/L BUN 26 H (7-18) mg/dL Creatinine 2.00 H (0.60-1.30) mg/dL Estimated GFR 34 L (>89) mL/min Random Glucose (74-106) mg/dL Calcium 8.0 L (8.5-10.1) mg/dL Alkaline Phosphatase (45-117) U/L Total Protein (6.4-8.2) g/dL Albumin (3.4-5.0) g/dL MTS Gel Crossmatch See Detail 10/12/17 10/12/17 Range/Units 04:40 04:40 WBC 3.6 L D (4.0-11.0) th/mm3 RBC 3.04 L (4.50-5.90) mil/mm3 Hgb 8.8 L (13.0-17.0) gm/dL Hct 25.7 L (39.0-51.0) % RDW (11.6-17.2) % MPV (7.0-11.0) fL Neut % (Auto) 81.2 H (16.0-70.0) % Lymph # (Auto) 0.3 L (1.0-4.8) th/mm3 Chloride 108 H (98-107) meq/L BUN 25 H (7-18) mg/dL Creatinine 1.90 H (0.60-1.30) mg/dL Estimated GFR 36 L (>89) mL/min Random Glucose 127 H (74-106) mg/dL Calcium 8.2 L (8.5-10.1) mg/dL Alkaline Phosphatase 131 H (45-117) U/L Total Protein 6.3 L (6.4-8.2) g/dL Albumin 2.4 L (3.4-5.0) g/dL MTS Gel Crossmatch Short CBC 10/11/17 10/12/17 Range/Units 11:37 04:40 WBC 2.0 L 3.6 L D (4.0-11.0) th/mm3 Hgb 7.6 L 8.8 L (13.0-17.0) gm/dL Hct 22.1 L 25.7 L (39.0-51.0) % Plt Count 168 192 (150-450) th/mm3 BMP 10/11/17 10/12/17 11:37 04:40 Sodium 142 142 Potassium 4.4 4.4 Chloride 109 H 108 H Carbon Dioxide 25.1 25.8 BUN 26 H 25 H Creatinine 2.00 H 1.90 H Calcium 8.0 L 8.2 L Liver Function 10/12/17 Range/Units 04:40 Total Bilirubin 0.2 (0.2-1.0) mg/dL AST 31 (15-37) U/L ALT 36 (12-78) U/L Alkaline Phosphatase 131 H (45-117) U/L Albumin 2.4 L (3.4-5.0) g/dL <Nora Boateng G - 10/12/17 11:46> Physical Exam Vital signs: Vital Signs 10/11/17 22:39 10/12/17 00:13 10/12/17 00:25 Temperature 100.1 F H Pulse Rate 77 81 Respiratory Rate 18 18 Blood Pressure 164/87 H Pulse Oximetry 98 10/12/17 00:33 10/12/17 03:11 10/12/17 04:07 Temperature 100 F H Pulse Rate 79 77 Respiratory Rate 18 18 Blood Pressure 148/69 H Pulse Oximetry 98 10/12/17 08:11 10/12/17 12:00 10/12/17 16:00 Temperature 98.0 F 97.5 F L 98.2 F Pulse Rate 80 77 63 Respiratory Rate 18 16 16 Blood Pressure 139/77 123/59 L 124/63 Pulse Oximetry 99 100 99 Intake & Output 10/12/17 10/12/17 10/13/17 06:59 18:59 06:59 Intake Total 2675 / 2675 1000 / 1000 900 / 900 Output Total 1350 / 1350 800 / 800 Balance 1325 / 1325 1000 / 1000 100 / 100 Weight 56.5 kg 59.9 kg Intake: IV 1000 / 1000 1000 / 1000 NS Inj 1,000 ML @ 100 mls/hr IV 1000 / 1000 1000 / 1000 .CONT .Q10H [facility] Rx#:[id number] Oral 660 / 660 900 / 900 Tube Feeding 745 / 745 Tube Irrigant 270 / 270 Output: Urine 1350 / 1350 800 / 800 Other: # Incontinent Voids 1 Date of Last Bowel Movement 10/11/17 10/11/17 <Vey,Shirley - 10/12/17 20:54> Vital Signs 10/11/17 11:52 10/11/17 12:00 10/11/17 15:14 Temperature 97.8 F Pulse Rate 58 L 60 Respiratory Rate 20 Blood Pressure 161/86 H 138/78 Pulse Oximetry 100 10/11/17 15:33 10/11/17 16:00 10/11/17 18:35 Temperature 97.5 F L 98.2 F Pulse Rate 59 L 57 L 63 Respiratory Rate 18 Blood Pressure 141/80 H 140/73 Pulse Oximetry 100 100 10/11/17 20:03 10/11/17 20:39 10/11/17 22:39 Temperature 99.9 F H Pulse Rate 71 70 Respiratory Rate 18 18 Blood Pressure 178/78 H Pulse Oximetry 99 10/12/17 00:13 10/12/17 00:25 10/12/17 00:33 Temperature 100.1 F H Pulse Rate 77 81 Respiratory Rate 18 18 Blood Pressure 164/87 H Pulse Oximetry 98 10/12/17 03:11 10/12/17 04:07 10/12/17 08:11 Temperature 100 F H 98.0 F Pulse Rate 79 77 80 Respiratory Rate 18 18 Blood Pressure 148/69 H 139/77 Pulse Oximetry 98 99 Intake & Output 10/11/17 10/12/17 10/12/17 18:59 06:59 18:59 Intake Total 1400 / 1400 2675 / 2675 Output Total 1350 / 1350 Balance 1400 / 1400 1325 / 1325 Weight 56.5 kg Intake: IV 1000 / 1000 1000 / 1000 NS Inj 1,000 ML @ 100 mls/hr IV 1000 / 1000 1000 / 1000 .CONT .Q10H [facility] Rx#:[id number] Oral 660 / 660 Tube Feeding 745 / 745 Tube Irrigant 270 / 270 Intake (Blood Product) Amt 400 / 400 Rbc As-3 Leukoreduced Unit 400 / 400 [id number] Output: Urine 1350 / 1350 Other: # Voids 6 Date of Last Bowel Movement 10/11/17 10/11/17 10/11/17 <Nora Boateng - 10/12/17 11:46> Narrative: GENERAL: Cachectic white male who looks older than his stated age, sitting in chair, in no acute distress SKIN: Warm and dry. HEAD: Atraumatic. Normocephalic. EYES: No scleral icterus. No injection or drainage. ENT: No nasal bleeding or discharge. NECK: Trachea midline. No JVD. CARDIOVASCULAR: Regular rate and rhythm. RESPIRATORY: No accessory muscle use. Clear to auscultation. Breath sounds equal bilaterally. GASTROINTESTINAL: Abdomen soft, non-tender, nondistended. PEG tube in place, no signs of infections, no erythema or warmth, no drainage. MUSCULOSKELETAL: Extremities without cyanosis, or edema. No obvious deformities. Slight clubbing of the fingers bilaterally. NEUROLOGICAL: Awake and alert. No obvious cranial nerve deficits. Motor grossly within normal limits. Normal speech. PSYCHIATRIC: Appropriate mood and affect; insight and judgment normal. 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 - Malignant neoplasm of pharynx, unspecified Status: Chronic (5) Nausea & vomiting Code(s): R11.2 - Nausea with vomiting, unspecified Status: Acute (6) Chronic kidney disease Code(s): N18.9 - Chronic kidney disease, unspecified Status: Acute (7) Hypertension Code(s): I10 - Essential (primary) hypertension Status: Chronic (8) Hepatitis C Code(s): B19.20 - Unspecified viral hepatitis C without hepatic coma Status: Chronic (9) Nutrition, metabolism, and development symptoms Code(s): R63.8 - Other symptoms and signs concerning food and fluid intake Status: Acute <Shirley Cardona - 10/12/17 20:54> (1) Leukopenia due to antineoplastic chemotherapy Code(s): D70.1 - Agranulocytosis secondary to cancer chemotherapy; T45.1X5A - Adverse effect of antineoplastic and immunosuppressive drugs, initial encounter Status: Acute Plan: WBC count on admission was 2.2, ANC calculated as 1562. 7/17 WBC count currently at 3.6, ANC 2923 s/p transfusion. Blood cx NGTD Patient is at risk for potentially fatal infection due to low WBC count: Patient is currently afebrile. -Monitor for signs of sepsis (fever, tachycardia) -If patient becomes febrile, will likely start antibiotics. -Dr. Pena of Heme Onc Consulted, appreciate recommendations -Cytopenia likely related in part to chemotherapy related myelosuppression -Neutropenic precautions -Case Management involved to help with SNF placement (2) Neck pain on right side Code(s): M54.2 - Cervicalgia Status: Acute Plan: Secondary to metastatic head and neck cancer and hx of cervical fusion. Increase oxycodone to 30mg Q4 hours scheduled; Dilaudid increased to 1.5mg for breakthrough. Will continue to adjust medications as needed. (3) Anemia Code(s): D64.9 - Anemia, unspecified Status: Acute Plan: Normocytic Anemia Hgb: 8.7, MCV:85.1 on admission. Likely due to CKD. 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 CT of Neck shows decrease in size of primary mass in tongue base and vallecula -Treated by Dr. Pena of Heme Onc (currently consulted) and Dr. Martinez of Radiation Oncology -to resume chemotherapy today, 10/12, with 1 additional dose of carboplatin and paclitaxel systemic chemotherapy. Carboplatin will be dosed at an AUC of 2 which amounts to 105 mg 1 today. Paclitaxel will be dosed at the standard 45 mg per metered squared which amounts to approximately 77 mg today. (5) Nausea & vomiting Code(s): R11.2 - Nausea with vomiting, unspecified Status: Acute Plan: Symptoms started after beginning chemotherapy: Most likely etiology. -Zofran 4mg odt PRN -Affecting Nutritional Status (6) Chronic kidney disease Code(s): N18.9 - Chronic kidney disease, unspecified Status: Acute Plan: Possibly Stage 3/4 CKD 10/12 Cr has improved to 1.90 since admission -Isolated Proteinuria, GFR:27, BUN:39,Cr:2.44 -Pt states to have low frequency urination. -I&Os -Continue to Monitor (7) Hypertension Code(s): I10 - Essential (primary) hypertension Status: Chronic Plan: Continue home medications and monitor. Patient's blood pressure elevated to the 220s/100s overnight -Lisinopril 10 p.o. daily -Nifedipine 60 mg p.o. every 12 hours -Hydralazine 50 mg p.o. every 8 hours -Clonidine 0.1 mg p.o. every 6 hours as needed for BP >180/100 -Will continue to add back home medications as needed (8) Hepatitis C Code(s): B19.20 - Unspecified viral hepatitis C without hepatic coma Status: Chronic Plan: Pt with hx of Hepatitis C. LFTs at admission WNL. (9) Nutrition, metabolism, and development symptoms Code(s): R63.8 - Other symptoms and signs concerning food and fluid intake Status: Acute Plan: Patient is Cachectic, most likely due to chemotherapy, increased nausea/ vomiting and peg tube issues. -Fluids: NS at 100 mls/hr -Electrolytes: Monitor and Replete PRN -Diet:Regular. 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 Admitted for observation and changed to inpatient status on 10/11. Patient desires to go to rehab, will work with case management. <Nora Boateng - 10/12/17 11:46> - Attending Attestation Patient seen and examined, discussed with resident team this morning. I agree with assessment and management as documented with me. Pt reports pain is under better control. Continue current regimen - consider changing to PO medication tomorrow, in anticipation of placement the next day. On exam, right sided cervical lymphadenopathy, mildly tender. <Shirley Cardona - 10/12/17 20:54> <Nora Boateng - Last Filed: 10/12/17 11:29> (3) Anemia Qualifiers: Anemia type: unspecified type Qualified Code(s): D64.9 - Anemia, unspecified (5) Nausea & vomiting Qualifiers: Vomiting type: unspecified Vomiting Intractability: non-intractable Qualified Code(s): R11.2 - Nausea with vomiting, unspecified (6) Chronic kidney disease Qualifiers: Chronic kidney disease stage: stage 4 (severe) Qualified Code(s): N18.4 - Chronic kidney disease, stage 4 (severe) (7) Hypertension Qualifiers: Hypertension type: essential hypertension Qualified Code(s): I10 - Essential (primary) hypertension (8) Hepatitis C Qualifiers: Viral hepatitis chronicity: chronic <Shirley Cardona - Last Filed: 10/12/17 20:54> (3) Anemia Qualifiers: Anemia type: unspecified type Qualified Code(s): D64.9 - Anemia, unspecified (5) Nausea & vomiting Qualifiers: Vomiting type: unspecified Vomiting Intractability: non-intractable Qualified Code(s): R11.2 - Nausea with vomiting, unspecified (6) Chronic kidney disease Qualifiers: Chronic kidney disease stage: stage 4 (severe) Qualified Code(s): N18.4 - Chronic kidney disease, stage 4 (severe) (7) Hypertension Qualifiers: Hypertension type: essential hypertension Qualified Code(s): I10 - Essential (primary) hypertension (8) Hepatitis C Qualifiers: Viral hepatitis chronicity: chronic <Nora Boateng Carlito - Last Filed: 10/12/17 11:29> (3) Anemia Qualifiers: Anemia type: unspecified type Qualified Code(s): D64.9 - Anemia, unspecified (5) Nausea & vomiting Qualifiers: Vomiting type: unspecified Vomiting Intractability: non-intractable Qualified Code(s): R11.2 - Nausea with vomiting, unspecified (6) Chronic kidney disease Qualifiers: Chronic kidney disease stage: stage 4 (severe) Qualified Code(s): N18.4 - Chronic kidney disease, stage 4 (severe) (7) Hypertension Qualifiers: Hypertension type: essential hypertension Qualified Code(s): I10 - Essential (primary) hypertension (8) Hepatitis C Qualifiers: Viral hepatitis chronicity: chronic <Shirley Cardona - Last Filed: 10/12/17 20:54> (3) Anemia Qualifiers: Anemia type: unspecified type Qualified Code(s): D64.9 - Anemia, unspecified (5) Nausea & vomiting Qualifiers: Vomiting type: unspecified Vomiting Intractability: non-intractable Qualified Code(s): R11.2 - Nausea with vomiting, unspecified (6) Chronic kidney disease Qualifiers: Chronic kidney disease stage: stage 4 (severe) Qualified Code(s): N18.4 - Chronic kidney disease, stage 4 (severe) (7) Hypertension Qualifiers: Hypertension type: essential hypertension Qualified Code(s): I10 - Essential (primary) hypertension (8) Hepatitis C Qualifiers: Viral hepatitis chronicity: chronic
[2017-10-12] MEDS: Sod Chloride 0.9% Inj 1,000 ML IV.CONT SCH (11:57)
[2017-10-12] MEDS ORDERED: Sodium Chlor 0.9% Inj 250 ML IV.SIG SCH (15:00)
[2017-10-12] MEDS ORDERED: Granisetron 1 MG/ML Vial IV.PUSH ONE (16:00)
[2017-10-12] MEDS ORDERED: Famotidine PF Inj 20 MG/2 ML Vial IV.PUSH ONE (16:00)
[2017-10-12] MEDS ORDERED: Dexamethasone Inj 12 MG in Sodium Chlor 0.9% Inj 50 ML IV.SIG ONE (16:00)
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
[2017-10-12] MEDS ORDERED: PACLITAXEL IV.SIG ONE (17:00)
[2017-10-12] MEDS ORDERED: SODIUM CHLOR 0.9% IV.SIG ONE ×2 (17:00→19:00)
[2017-10-12] MEDS ORDERED: CARBOPLATIN IV.SIG ONE (19:00)
[2017-10-12] MEDS: Enoxaparin Inj 30 MG/0.3 ML Syringe SQ SCH (21:15)
[2017-10-13] MEDS: HYDROmorphone PF Inj 2 MG/ML Vial IV.PUSH PRN ×3 (01:20→08:30)
[2017-10-13] MEDS: Acetaminophen 325 MG Tablet PO SCH ×4 (03:12→20:38)
[2017-10-13] MEDS: Sod Chloride 0.9% Inj 1,000 ML IV.CONT SCH ×3 (05:24→17:18)
[2017-10-13] MEDS: Isosorbide Mononitrate 30 MG ER 24HR Tablet (Imdur) PO SCH (06:46)
[2017-10-13] MEDS: hydrALAZINE 50 MG Tablet PO SCH ×3 (07:39→22:36)
[2017-10-13 08:12] LABS: Hemoglobin 7.5 gm/dL (13.0-17.0); Mean Corpuscular HGB Conc 34.2 % (32.0-36.0); Mean Corpuscular Hemoglobin 29.2 pg (27.0-34.0); Mean Corpuscular Volume 85.5 fL (80.0-100.0); Mean Platelet Volume 7.1 fL (7.0-11.0); Platelet Count 193 th/mm3 (150-450); Red Blood Count 2.58 mil/mm3 (4.50-5.90); Red Cell Distribution Width 17.2 % (11.6-17.2); White Blood Count 2.8 th/mm3 (4.0-11.0)
[2017-10-13] MEDS: Lisinopril 10 MG Tablet PO SCH (08:29)
[2017-10-13] MEDS: Senna/Docusate Sodium 8.6/50 MG Tablet PO SCH (08:30)
[2017-10-13 08:32] LABS: Calcium 7.7 mg/dL (8.5-10.1); Carbon Dioxide 21.7 meq/L (21.0-32.0); Potassium 4.2 meq/L (3.5-5.1)
--- NOTE | 2017-10-13 10:25 | P.PNFP ---
Subjective Interval history: Patient seen and examined this morning. Patient states that his neck pain is controlled on his current pain regimen, recently changed by palliative care. He has been tolerating his tube feeds well while in the hospital. Tolerated chemotherapy treatment yesterday and planning to undergo radiation therapy today per Dr. Pena. Denies nausea, vomiting, difficulty swallowing, chest pain , shortness of breath or leg pain. Spoke to case management, who state that [facility] should be able to accept the patient as long as he has arranged transport to and from the oncology suite for chemotherapy and radiation treatments. CM will attempt to arrange this transport and call back. If unable to be accepted at [facility] , will consider evaluation by [facility] for possible placement. Results - Labs Result diagrams: 10/13/17 06:42 10/13/17 06:42 Abnormal lab results 10/13/17 10/13/17 Range/Units 06:42 06:42 WBC 2.8 L (4.0-11.0) th/mm3 RBC 2.58 L (4.50-5.90) mil/mm3 Hgb 7.5 L (13.0-17.0) gm/dL Hct 22.0 L (39.0-51.0) % Chloride 114 H (98-107) meq/L BUN 26 H (7-18) mg/dL Creatinine 1.72 H (0.60-1.30) mg/dL Estimated GFR 41 L (>89) mL/min Random Glucose 120 H (74-106) mg/dL Calcium 7.7 L (8.5-10.1) mg/dL Short CBC 10/13/17 Range/Units 06:42 WBC 2.8 L (4.0-11.0) th/mm3 Hgb 7.5 L (13.0-17.0) gm/dL Hct 22.0 L (39.0-51.0) % Plt Count 193 (150-450) th/mm3 BMP 10/13/17 06:42 Sodium 144 Potassium 4.2 Chloride 114 H Carbon Dioxide 21.7 BUN 26 H Creatinine 1.72 H Calcium 7.7 L Physical Exam Vital signs: Vital Signs 10/12/17 12:00 10/12/17 16:00 10/12/17 20:00 Temperature 97.5 F L 98.2 F 98.3 F Pulse Rate 77 63 63 Respiratory Rate 16 16 18 Blood Pressure 123/59 L 124/63 144/72 H Pulse Oximetry 100 99 99 10/12/17 20:19 10/13/17 00:11 10/13/17 00:37 Temperature 98.3 F Pulse Rate 62 77 70 Respiratory Rate 18 Blood Pressure 130/83 Pulse Oximetry 99 10/13/17 03:13 10/13/17 04:00 10/13/17 04:05 Temperature 98.2 F Pulse Rate 69 72 Respiratory Rate 16 18 Blood Pressure 156/80 H Pulse Oximetry 96 10/13/17 08:00 Temperature 97.5 F L Pulse Rate 75 Respiratory Rate 22 Blood Pressure 135/78 Pulse Oximetry 100 Intake & Output 10/12/17 10/13/17 10/13/17 18:59 06:59 18:59 Intake Total 1053 / 1053 4283.336 / 4283.336 Output Total 1800 / 1800 Balance 1053 / 1053 2483.336 / 2483.336 Weight 59.9 kg 62.2 kg Intake: IV 1053 / 1053 1523.336 / 1523.336 NS Inj 1,000 ML @ 100 mls/hr IV 1000 / 1000 1000 / 1000 .CONT .Q10H [facility] Rx#:[id number] Paraplatin Inj 105 MG In NS Inj 260.5 / 260.5 250 ML @ 521 mls/hr IV.SIG ONCE ONE Rx#:[id number] Decadron Inj 12 MG In NS Inj 50 53 / 53 ML @ 212 mls/hr IV.SIG ONCE ONE Rx#:[id number] Taxol Inj 77 MG In NS Inj 250 262.836 / 262.836 ML @ 131.417 mls/hr IV.SIG ONCE ONE Rx#:[id number] Oral 1140 / 1140 Tube Feeding 500 / 500 Tube Irrigant 120 / 120 Other 1000 / 1000 Output: Urine 1800 / 1800 Other: # Voids 6 # Incontinent Voids 1 Date of Last Bowel Movement 10/11/17 10/11/17 Narrative: GENERAL: Cachectic white male who looks older than his stated age, laying up in bed watching television, in no acute distress SKIN: Warm and dry. HEAD: Atraumatic. Normocephalic. EYES: No scleral icterus. No injection or drainage. ENT: No nasal bleeding or discharge. NECK: Trachea midline. No JVD. Swelling present around the R maxilla and R neck area. One firm 4x4cm nodule present on the R side of the neck. Nodule slightly tender to palpation. CARDIOVASCULAR: Regular rate and rhythm. RESPIRATORY: No accessory muscle use. Clear to auscultation. Breath sounds equal bilaterally. GASTROINTESTINAL: Abdomen soft, non-tender, nondistended. PEG tube in place, no signs of infections, no erythema or warmth, no drainage. MUSCULOSKELETAL: Extremities without cyanosis, or edema. No obvious deformities. Slight clubbing of the fingers bilaterally. NEUROLOGICAL: Awake and alert. No obvious cranial nerve deficits. Motor grossly within normal limits. Normal speech. PSYCHIATRIC: Appropriate mood and affect; insight and judgment normal. Assessment and Plan - Assessment (1) Leukopenia due to antineoplastic chemotherapy Code(s): D70.1 - Agranulocytosis secondary to cancer chemotherapy; T45.1X5A - Adverse effect of antineoplastic and immunosuppressive drugs, initial encounter Status: Acute Plan: WBC count on admission was 2.2, ANC calculated as 1562. 7 WBC count currently at 3.6, ANC 2923 s/p transfusion. Blood cx NGTD Patient is at risk for potentially fatal infection due to low WBC count: Patient is currently afebrile. -Monitor for signs of sepsis (fever, tachycardia) -If patient becomes febrile, will likely start antibiotics. -Dr. Pena of Heme Onc Consulted, appreciate recommendations -Cytopenia likely related in part to chemotherapy related myelosuppression -Per Dr. Pena, patient WBC/ANC stable enough to re-start chemo and radiation therapies yesterday, see plan below for further detail -Neutropenic precautions -Case Management involved to help with SNF placement (2) Squamous cell carcinoma of pharynx Code(s): C14.0 - Malignant neoplasm of pharynx, unspecified Status: Chronic Plan: Diagnosed and Started on Chemotherapy in June 2017. CT of Neck shows decrease in size of primary mass in tongue base and vallecula -Treated by Dr. Pena of Heme Onc (currently consulted) and Dr. Martinez of Radiation Oncology -resumed chemotherapy on 10/12, with 1 additional dose of carboplatin and paclitaxel systemic chemotherapy. Carboplatin will be dosed at an AUC of 2 which amounts to 105 mg 1 today. Paclitaxel will be dosed at the standard 45 mg per metered squared which amounts to approximately 77 mg. -Patient to undergo radiation therapy today (3) Neck pain on right side Code(s): M54.2 - Cervicalgia Status: Acute Plan: Secondary to metastatic head and neck cancer and hx of cervical fusion. -Oxycodone to 30mg Q4 hours scheduled -Changed Dilaudid 1.5mg IV to Oxycodone 15 mg q4h PRN for breakthrough, per palliative care recommendations in preparation for discharge. (4) Anemia Code(s): D64.9 - Anemia, unspecified Status: Acute Plan: Normocytic Anemia Hgb: 8.7, MCV:85.1 on admission. Likely due to CKD. -s/p 1 unit of pRBCs on 10/11 due Hgb of 7.6, ordered by Heme Onc -will need maintain Hgb of >8 -Continue to Monitor (5) Nausea & vomiting Code(s): R11.2 - Nausea with vomiting, unspecified Status: Acute Plan: Symptoms started after beginning chemotherapy: Most likely etiology. -Zofran 4mg odt PRN -Affecting Nutritional Status (6) Chronic kidney disease Code(s): N18.9 - Chronic kidney disease, unspecified Status: Acute Plan: Possibly Stage 3/4 CKD 10/12 Cr has improved to 1.90 since admission -Isolated Proteinuria, GFR:27, BUN:39,Cr:2.44 -Pt states to have low frequency urination. -I&Os -Continue to Monitor (7) Hypertension Code(s): I10 - Essential (primary) hypertension Status: Chronic Plan: Continue home medications and monitor. Patient's blood pressure elevated to the 220s/100s overnight -Lisinopril 10 p.o. daily -Nifedipine 60 mg p.o. every 12 hours -Hydralazine 50 mg p.o. every 8 hours -Clonidine 0.1 mg p.o. every 6 hours as needed for BP >180/100 -Will continue to add back home medications as needed (8) Hepatitis C Code(s): B19.20 - Unspecified viral hepatitis C without hepatic coma Status: Chronic Plan: Pt with hx of Hepatitis C. LFTs at admission WNL. (9) Nutrition, metabolism, and development symptoms Code(s): R63.8 - Other symptoms and signs concerning food and fluid intake Status: Acute Plan: Patient is Cachectic, most likely due to chemotherapy, increased nausea/ vomiting and peg tube issues. -Fluids: NS at 100 mls/hr -Electrolytes: Monitor and Replete PRN -Diet:Regular. 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 Admitted for observation and changed to inpatient status on 10/11. Patient desires to go to rehab, will work with case management. Possible placement at [facility] pending transport set up to oncology suite for chemo and radiation. (4) Anemia Qualifiers: Anemia type: unspecified type Qualified Code(s): D64.9 - Anemia, unspecified (5) Nausea & vomiting Qualifiers: Vomiting type: unspecified Vomiting Intractability: non-intractable Qualified Code(s): R11.2 - Nausea with vomiting, unspecified (6) Chronic kidney disease Qualifiers: Chronic kidney disease stage: stage 4 (severe) Qualified Code(s): N18.4 - Chronic kidney disease, stage 4 (severe) (7) Hypertension Qualifiers: Hypertension type: essential hypertension Qualified Code(s): I10 - Essential (primary) hypertension (8) Hepatitis C Qualifiers: Viral hepatitis chronicity: chronic
[2017-10-13] MEDS ORDERED: Cathflo Activase Inj 2 MG Vial I-CATHETER ONE (12:11)
--- NOTE | 2017-10-13 15:09 | P.DIET ---
Nutritional Evaluation Type of nutrition evaluation: follow-up Nutrition consult regarding: Tube Feeding ([facility] [place]) Nutrition screening: Weight Loss > 10 lbs Subjective Subjective Comments: Pt states he is still able to eat despite XRT treatments. He c/o pain in his throat 2/2 XRT, but "coats" his throat w/ cold liquids prior to eating. He states he drinks roughly 2-3 Ensures daily. Denied D/C, but c/o N/V after XRT. Denied trouble chewing food/feeding himself. Objective - Diagnosis Leukopenia, nausea/vomiting - Objective % IBW: 92 (UAA=850#) Body Weight Used for Calculations: IBW (67.3kg) Energy Needs - Lower Range (kCal/kg): 30 Energy Needs - Upper Range (kCal/kg): 35 Lower Limit kCal/kg (kCals): 2,019 Upper Limit kCal/kg (kCals): 2,359 Lower Limit Protein Factor (Grams per Kg): 1.2 Upper Limit Protein Factor (Grams per Kg): 1.5 Lower Protein Needs (Protein): 81 Upper Protein Needs (Protein): 101 Fluid Factor (ml/kg): 30 Estimated Fluid Needs (ml): 2,019 Dietitian Reviewed in Medical Record: Current diet, Curent medications, Intake & Output, Labs, Medical history, Tube feeding Diet Order: TF w/ Tray, Regular Oral Diet Intake Amount: Good 75-90% Objective Comments: Carboplatin and Paclitaxel yesterday LBM 10/13 Feeding - Current Tube Feeding Tube Feeding Product: Two Khalif HN Tube Feeding Method: Pump (6pm-8am) Tube Feeding Rate: 70 Current kCals Provided by Tube Feedin,960 Current Protein Provided by Tube Feeding (gPRO): 82 Current Free H2O Provided (m/l): 686 - Current PO Supplement Current Supplement: Ensure Original Current Frequency of Supplement: Three times a day Current kCals Provided by Supplement: 250 Current Protein Provided by Supplement: 9 Assessment Assessment: Pt remains on TFing as described above. He has no c/o N/V/D/C r/t to nocturnal TFings. He's very happy he's receiving the additional nutrition. He continues to eat 3 meals/day plus 2-3 Ensures. He follows up w/ the outpatient RD for the oncology center. Pt states he's D/Cing to [place] tomorrow. Per EMR, pt has ~14 XRT treatments left(?). Continue current POC. Pt declined TFing education stating, "that's why I am going to rehab". Dietitian following. Recommendations: 1. Continue nocturnal TFings as ordered. 2. Recommend continuing this regimen at D/C in addition to PO intake for wt gain. 3. Ensure TID. Dietitian to Monitor: Lab values, Supplement acceptance, Intake & Output, Diet tolerance, Tube feeding tolerance, Weight change, PO Intake, Medical course
[2017-10-13] MEDS: Enoxaparin Inj 30 MG/0.3 ML Syringe SQ SCH (20:38)
[2017-10-14] MEDS: Acetaminophen 325 MG Tablet PO SCH ×2 (02:03→08:39)
[2017-10-14] MEDS: Sod Chloride 0.9% Inj 1,000 ML IV.CONT SCH (02:57)
[2017-10-14] MEDS: Isosorbide Mononitrate 30 MG ER 24HR Tablet (Imdur) PO SCH (05:59)
[2017-10-14] MEDS: hydrALAZINE 50 MG Tablet PO SCH (05:59)
[2017-10-14 06:29] LABS: Baso % (Auto) 0.4 % (0.0-2.0); Eos # (Auto) 0.1 th/mm3 (0.0-0.4); Eos % (Auto) 3.8 % (0.0-4.0); Lymph # (Auto) 0.4 th/mm3 (1.0-4.8); Lymph % (Auto) 11.8 % (9.0-44.0); Mean Corpuscular HGB Conc 34.7 % (32.0-36.0); Mean Corpuscular Hemoglobin 29.3 pg (27.0-34.0); Mean Corpuscular Volume 84.7 fL (80.0-100.0); Mono # (Auto) 0.2 th/mm3 (0.0-0.9); Mono % (Auto) 5.1 % (0.0-8.0); Neut # (Auto) 2.5 th/mm3 (1.8-7.7); Neut % (Auto) 78.9 % (16.0-70.0); Platelet Count 232 th/mm3 (150-450); Red Blood Count 3.07 mil/mm3 (4.50-5.90); Red Cell Distribution Width 18.3 % (11.6-17.2); White Blood Count 3.2 th/mm3 (4.0-11.0)
[2017-10-14 06:40] LABS: Calcium 8.7 mg/dL (8.5-10.1); Carbon Dioxide 28.4 meq/L (21.0-32.0); Potassium 4.4 meq/L (3.5-5.1)
[2017-10-14] MEDS: Senna/Docusate Sodium 8.6/50 MG Tablet PO SCH (08:37)
[2017-10-14] MEDS: Lisinopril 10 MG Tablet PO SCH (08:37)
[2017-10-14] MEDS ORDERED: HYDROmorphone PF Inj 2 MG/ML Vial IV.PUSH ONE (11:35)
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
--- NOTE | 2017-10-14 12:15 | P.PNFP ---
Subjective Interval history: Patient seen and examined this morning. He states that he is eager to be leaving for rehab this afternoon. He states that the pain management was implemented yesterday did not work for him. He feels that the Dilaudid is better for him. Otherwise, he is doing well. No fevers or chills, no chest pain, no shortness of breath, no abdominal pain, no nausea/ vomiting. <Nora Boateng - 10/14/17 13:52> Results - Labs Result diagrams: 10/14/17 06:09 10/14/17 06:09 <Shirley Cardona - 10/14/17 20:27> Abnormal lab results 10/14/17 10/14/17 Range/Units 06:09 06:09 WBC 3.2 L (4.0-11.0) th/mm3 RBC 3.07 L (4.50-5.90) mil/mm3 Hgb 9.0 L (13.0-17.0) gm/dL Hct 26.0 L (39.0-51.0) % RDW 18.3 H (11.6-17.2) % Neut % (Auto) 78.9 H (16.0-70.0) % Lymph # (Auto) 0.4 L (1.0-4.8) th/mm3 Chloride 110 H (98-107) meq/L BUN 28 H (7-18) mg/dL Creatinine 1.83 H (0.60-1.30) mg/dL Estimated GFR 38 L (>89) mL/min Short CBC 10/14/17 Range/Units 06:09 WBC 3.2 L (4.0-11.0) th/mm3 Hgb 9.0 L (13.0-17.0) gm/dL Hct 26.0 L (39.0-51.0) % Plt Count 232 (150-450) th/mm3 BMP 10/14/17 06:09 Sodium 143 Potassium 4.4 Chloride 110 H Carbon Dioxide 28.4 BUN 28 H Creatinine 1.83 H Calcium 8.7 D <Shirley Cardona - 10/14/17 20:27> Abnormal lab results 10/14/17 10/14/17 Range/Units 06:09 06:09 WBC 3.2 L (4.0-11.0) th/mm3 RBC 3.07 L (4.50-5.90) mil/mm3 Hgb 9.0 L (13.0-17.0) gm/dL Hct 26.0 L (39.0-51.0) % RDW 18.3 H (11.6-17.2) % Neut % (Auto) 78.9 H (16.0-70.0) % Lymph # (Auto) 0.4 L (1.0-4.8) th/mm3 Chloride 110 H (98-107) meq/L BUN 28 H (7-18) mg/dL Creatinine 1.83 H (0.60-1.30) mg/dL Estimated GFR 38 L (>89) mL/min Short CBC 10/14/17 Range/Units 06:09 WBC 3.2 L (4.0-11.0) th/mm3 Hgb 9.0 L (13.0-17.0) gm/dL Hct 26.0 L (39.0-51.0) % Plt Count 232 (150-450) th/mm3 [facility] 10/14/17 06:09 Sodium 143 Potassium 4.4 Chloride 110 H Carbon Dioxide 28.4 BUN 28 H Creatinine 1.83 H Calcium 8.7 D <Nora Boateng G - 10/14/17 12:15> Physical Exam Vital signs: Vital Signs 10/13/17 23:22 10/14/17 00:09 10/14/17 03:00 Temperature 98.3 F 98.4 F Pulse Rate 81 77 71 Respiratory Rate 20 20 Blood Pressure 155/76 H 156/79 H Pulse Oximetry 97 98 10/14/17 04:01 10/14/17 06:24 10/14/17 07:20 Temperature 98.6 F Pulse Rate 75 77 Respiratory Rate 18 24 Blood Pressure 137/68 Pulse Oximetry 100 Intake & Output 10/14/17 10/14/17 10/15/17 06:59 18:59 06:59 Intake Total 1901 / 1901 Output Total 1300 / 1300 Balance 601 / 601 Weight 59.8 kg Intake: IV 1000 / 1000 NS Inj 1,000 ML @ 100 mls/hr IV 1000 / 1000 .CONT .Q10H [facility] Rx#:[id number] Oral 330 / 330 Tube Feeding 451 / 451 Tube Irrigant 120 / 120 Output: Urine 1300 / 1300 Other: # Voids 1 Date of Last Bowel Movement 10/13/17 10/12/17 # Bowel Movements 1 <Shirley Cardona - 10/14/17 20:27> Vital Signs 10/13/17 16:00 10/13/17 19:45 10/13/17 19:48 Temperature 98.3 F Pulse Rate 64 70 Respiratory Rate 18 18 Blood Pressure 133/73 Pulse Oximetry 100 10/13/17 20:00 10/13/17 23:22 10/14/17 00:09 Temperature 97.7 F 98.3 F Pulse Rate 77 81 77 Respiratory Rate 20 20 Blood Pressure 129/74 155/76 H Pulse Oximetry 95 97 10/14/17 03:00 10/14/17 04:01 10/14/17 06:24 Temperature 98.4 F Pulse Rate 71 75 Respiratory Rate 20 18 Blood Pressure 156/79 H Pulse Oximetry 98 10/14/17 07:20 Temperature 98.6 F Pulse Rate 77 Respiratory Rate 24 Blood Pressure 137/68 Pulse Oximetry 100 Intake & Output 10/13/17 10/14/17 10/14/17 18:59 06:59 18:59 Intake Total 1730 / 1730 1901 / 1901 Output Total 605 / 605 1300 / 1300 Balance 1125 / 1125 601 / 601 Weight 59.8 kg Intake: IV 1000 / 1000 1000 / 1000 NS Inj 1,000 ML @ 100 mls/hr IV 1000 / 1000 1000 / 1000 .CONT .Q10H [facility] Rx#:[id number] Oral 730 / 730 330 / 330 Tube Feeding 451 / 451 Tube Irrigant 120 / 120 Output: Urine 5 / 5 1300 / 1300 Emesis 600 / 600 Other: # Voids 1 Date of Last Bowel Movement 10/12/17 10/13/17 10/12/17 # Bowel Movements 1 <Nora Boateng G - 10/14/17 12:15> Narrative: GENERAL: Cachectic white male who looks older than his stated age, sitting at edge of bed, in no acute distress SKIN: Warm and dry. HEAD: Atraumatic. Normocephalic. EYES: No scleral icterus. No injection or drainage. ENT: No nasal bleeding or discharge. NECK: Trachea midline. No JVD. Swelling present around the R maxilla and R neck area. One firm 4x4cm nodule present on the R side of the neck. Nodule slightly tender to palpation. CARDIOVASCULAR: Regular rate and rhythm. RESPIRATORY: No accessory muscle use. Clear to auscultation. Breath sounds equal bilaterally. GASTROINTESTINAL: Abdomen soft, non-tender, nondistended. PEG tube in place, no signs of infections, no erythema or warmth, no drainage. MUSCULOSKELETAL: Extremities without cyanosis, or edema. No obvious deformities. Slight clubbing of the fingers bilaterally. NEUROLOGICAL: Awake and alert. No obvious cranial nerve deficits. Motor grossly within normal limits. Normal speech. PSYCHIATRIC: Appropriate mood and affect; insight and judgment normal. 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 - Malignant neoplasm of pharynx, unspecified Status: Chronic (3) Neck pain on right side Code(s): M54.2 - Cervicalgia Status: Acute (4) Anemia Code(s): D64.9 - Anemia, unspecified Status: Acute (5) Nausea & vomiting Code(s): R11.2 - Nausea with vomiting, unspecified Status: Acute (6) Chronic kidney disease Code(s): N18.9 - Chronic kidney disease, unspecified Status: Acute (7) Hypertension Code(s): I10 - Essential (primary) hypertension Status: Chronic (8) Hepatitis C Code(s): B19.20 - Unspecified viral hepatitis C without hepatic coma Status: Chronic (9) Protein-calorie malnutrition, severe Code(s): E43 - Unspecified severe protein-calorie malnutrition Status: Acute (10) Nutrition, metabolism, and development symptoms Code(s): R63.8 - Other symptoms and signs concerning food and fluid intake Status: Acute (11) DVT prophylaxis Status: Acute <Shirley Cardona - 10/14/17 20:27> (1) Leukopenia due to antineoplastic chemotherapy Code(s): D70.1 - Agranulocytosis secondary to cancer chemotherapy; T45.1X5A - Adverse effect of antineoplastic and immunosuppressive drugs, initial encounter Status: Acute Plan: WBC count on admission was 2.2, ANC calculated as 1562. 7/19 WBC count currently at 3.2, ANC 2525 s/p transfusion. Blood cx NGTD Patient is at risk for potentially fatal infection due to low WBC count: Patient is currently afebrile. -Monitor for signs of sepsis (fever, tachycardia) -If patient becomes febrile, will likely start antibiotics. -Dr. Pena of Heme Onc Consulted, appreciate recommendations -Cytopenia likely related in part to chemotherapy related myelosuppression -Per Dr. Pena, patient WBC/ANC stable enough to re-start chemo and radiation therapies on 10/12, see plan below for further detail -Neutropenic precautions -Case Management involved to help with SNF placement (2) Squamous cell carcinoma of pharynx Code(s): C14.0 - Malignant neoplasm of pharynx, unspecified Status: Chronic Plan: Diagnosed and Started on Chemotherapy in June 2017. CT of Neck shows decrease in size of primary mass in tongue base and vallecula -Treated by Dr. Pena of Heme Onc (currently consulted) and Dr. Martinez of Radiation Oncology -resumed chemotherapy on 10/12, with 1 additional dose of carboplatin and paclitaxel systemic chemotherapy. Carboplatin will be dosed at an AUC of 2 which amounts to 105 mg 1 today. Paclitaxel will be dosed at the standard 45 mg per metered squared which amounts to approximately 77 mg. -Patient to undergo radiation therapy as well (3) Neck pain on right side Code(s): M54.2 - Cervicalgia Status: Acute Plan: Secondary to metastatic head and neck cancer and hx of cervical fusion. -Recently changed regimen is not working for patient, palliative care adjusted as below * Hydromorphone 8 mg po q 4 hours ATC * Hydromorphone 4 mg po q 3 hours prn pain/sob (4) Anemia Code(s): D64.9 - Anemia, unspecified Status: Acute Plan: Normocytic Anemia Hgb: 8.7, MCV:85.1 on admission. Likely due to CKD. -s/p 1 unit of pRBCs on 10/11 due Hgb of 7.6, ordered by Heme Onc -will need maintain Hgb of >8 -Continue to Monitor (5) Nausea & vomiting Code(s): R11.2 - Nausea with vomiting, unspecified Status: Acute Plan: Symptoms started after beginning chemotherapy: Most likely etiology. -Zofran 4mg odt PRN -Affecting Nutritional Status (6) Chronic kidney disease Code(s): N18.9 - Chronic kidney disease, unspecified Status: Acute Plan: Possibly Stage 3/4 CKD 10/12 Cr has improved to 1.90 since admission -Isolated Proteinuria, GFR:27, BUN:39,Cr:2.44 -Pt states to have low frequency urination. -I&Os -Continue to Monitor (7) Hypertension Code(s): I10 - Essential (primary) hypertension Status: Chronic Plan: Continue home medications and monitor. Patient's blood pressure elevated to the 220s/100s overnight -Lisinopril 10 p.o. daily -Nifedipine 60 mg p.o. every 12 hours -Hydralazine 50 mg p.o. every 8 hours -Clonidine 0.1 mg p.o. every 6 hours as needed for BP >180/100 -Will continue to add back home medications as needed (8) Hepatitis C Code(s): B19.20 - Unspecified viral hepatitis C without hepatic coma Status: Chronic Plan: Pt with hx of Hepatitis C. LFTs at admission WNL. (9) Protein-calorie malnutrition, severe Code(s): E43 - Unspecified severe protein-calorie malnutrition Status: Acute Plan: Patient with weight loss of 25-30 pounds over the past 4 weeks despite feeding tube being in place. Patient was unable to correctly use his feeding tube at home and was unsure how to do so. -Plan as below (10) Nutrition, metabolism, and development symptoms Code(s): R63.8 - Other symptoms and signs concerning food and fluid intake Status: Acute Plan: Patient is Cachectic, most likely due to chemotherapy, increased nausea/ vomiting and peg tube issues. -Fluids: NS at 100 mls/hr -Electrolytes: Monitor and Replete PRN -Diet:Regular. 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 Admitted for observation and changed to inpatient status on 10/11. <Nora Boateng - 10/14/17 14:13> Discussed Condition With: Dr. Cardona <Nora Boateng - 10/14/17 14:13> Discharge Planning: Discharge to rehab facility today <Nora Boateng - 10/14/17 14:13> - Attending Attestation Patient seen and examined, discussed with resident team. I agree with assessment and management as documented and discussed with me. Pt reporst he feels better now that he will get dilaudid, as he believes it works better for him. He has had a radiation session today. He is ready for discharge to SNF. Greater than 30 minutes spent counselling and coordinating care at discharge. <Shirley Cardona - 10/14/17 20:27> <Nora Boateng G - Last Filed: 10/14/17 13:57> (4) Anemia Qualifiers: Anemia type: unspecified type Qualified Code(s): D64.9 - Anemia, unspecified (5) Nausea & vomiting Qualifiers: Vomiting type: unspecified Vomiting Intractability: non-intractable Qualified Code(s): R11.2 - Nausea with vomiting, unspecified (6) Chronic kidney disease Qualifiers: Chronic kidney disease stage: stage 4 (severe) Qualified Code(s): N18.4 - Chronic kidney disease, stage 4 (severe) (7) Hypertension Qualifiers: Hypertension type: essential hypertension Qualified Code(s): I10 - Essential (primary) hypertension (8) Hepatitis C Qualifiers: Viral hepatitis chronicity: chronic <Sri Cardonae - Last Filed: 10/14/17 20:27> (4) Anemia Qualifiers: Anemia type: unspecified type Qualified Code(s): D64.9 - Anemia, unspecified (5) Nausea & vomiting Qualifiers: Vomiting type: unspecified Vomiting Intractability: non-intractable Qualified Code(s): R11.2 - Nausea with vomiting, unspecified (6) Chronic kidney disease Qualifiers: Chronic kidney disease stage: stage 4 (severe) Qualified Code(s): N18.4 - Chronic kidney disease, stage 4 (severe) (7) Hypertension Qualifiers: Hypertension type: essential hypertension Qualified Code(s): I10 - Essential (primary) hypertension (8) Hepatitis C Qualifiers: Viral hepatitis chronicity: chronic <Nora Boateng - Last Filed: 10/14/17 13:57> (4) Anemia Qualifiers: Anemia type: unspecified type Qualified Code(s): D64.9 - Anemia, unspecified (5) Nausea & vomiting Qualifiers: Vomiting type: unspecified Vomiting Intractability: non-intractable Qualified Code(s): R11.2 - Nausea with vomiting, unspecified (6) Chronic kidney disease Qualifiers: Chronic kidney disease stage: stage 4 (severe) Qualified Code(s): N18.4 - Chronic kidney disease, stage 4 (severe) (7) Hypertension Qualifiers: Hypertension type: essential hypertension Qualified Code(s): I10 - Essential (primary) hypertension (8) Hepatitis C Qualifiers: Viral hepatitis chronicity: chronic <VeShirley addison - Last Filed: 10/14/17 20:27> (4) Anemia Qualifiers: Anemia type: unspecified type Qualified Code(s): D64.9 - Anemia, unspecified (5) Nausea & vomiting Qualifiers: Vomiting type: unspecified Vomiting Intractability: non-intractable Qualified Code(s): R11.2 - Nausea with vomiting, unspecified (6) Chronic kidney disease Qualifiers: Chronic kidney disease stage: stage 4 (severe) Qualified Code(s): N18.4 - Chronic kidney disease, stage 4 (severe) (7) Hypertension Qualifiers: Hypertension type: essential hypertension Qualified Code(s): I10 - Essential (primary) hypertension (8) Hepatitis C Qualifiers: Viral hepatitis chronicity: chronic
[2017-10-14] MEDS ORDERED: Enoxaparin Inj 40 MG/0.4 ML Syringe SQ SCH (20:00)
--- NOTE | 2017-10-17 11:39 | P.DS ---
Date of admission: 10/11/17 15:16 Primary care physician: Mateo Pena MD Brief History from admission: 62 Male with PMH of HTN, RI, PTSD, osteomyelitis, currently on Chemotherapy for neck cancer here for evaluation of leukopenia. Pt was seeing Dr. Pena for chemotherapy on Wednesday and was told to come into the ED because his WBC count was low. He is also trying to be placed in a chcf for further care. He confirms nausea and vomiting that started after he began chemotherapy. He also complains of right sided neck pain. He describes his pain as a 10/10 sharp pain located on the R side of his neck and runs down the base of his neck. He says that turning his head to the R makes the pain worse and his home pain medications help slightly. He said the pain sometimes is so painful it brings him to tears. Pt is still able to eat po and has a supplements provided via peg tube. He is still unsure of how to use his peg tube correctly. He has no other complaints. PMH: RI in June 2017, All others in HPI. 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 SH: Has three children (42,27,9). Not . Pt does not drink alcohol. Quit smoking 3 months ago, smoked 1/2 ppd since the age of 11. No recreational drug use. Allergies: Simvastatin (Liver Toxicity) Meds: Reconciled. DS: Diagnosis - Discharge Diagnosis (1) Leukopenia due to antineoplastic chemotherapy Status: Acute (2) Squamous cell carcinoma of pharynx Status: Chronic (3) Neck pain on right side Status: Acute (4) Anemia Status: Acute (5) Nausea & vomiting Status: Acute (6) Chronic kidney disease Status: Acute (7) Hypertension Status: Chronic (8) Hepatitis C Status: Chronic (9) Nutrition, metabolism, and development symptoms Status: Acute (10) DVT prophylaxis Status: Acute DS: Medications - Discharge Medications Prescriptions: hydralazine 50 mg PO Q8HR 30 Days tab hydromorphone 8 mg PO Q6H #120 tab isosorbide mononitrate 30 mg PO DAILY@0700 30 Days tab lisinopril 10 mg PO DAILY 30 Days #30 tab nifedipine 60 mg PO Q12HR 30 Days tab ondansetron 4 mg PO Q6H PRN #30 tab PRN Reason: Nausea Or Vomiting sennosides-docusate sodium [Senna Plus] 1 tab PO DAILY 30 Days #30 tab DS: Summary Hospital Course: Patient is a 62-year-old male with history of squamous cell carcinoma of the neck with metastasis to supraclavicular lymph node admitted for SNF placement for further care per patient's oncologist, Dr. Pena. On admission patient was neutropenic to 2.2 but otherwise do not meet SIRS criteria. Patient's chemotherapy was stopped due to low white blood cell count prior to admission. Heme/Onc, palliative care and nutrition consulted. Patient placed on home dose of home dose of Roxicodone 20 mg with IV Dilaudid for breakthrough pain. Patient restarted on chemotherapy and radiation while in the hospital due to improving white blood cell count per Dr. Pena's recommendations. Patient's pain regiment managed by palliative care. Patient was hypertensive throughout hospital stay continued to add back home medications including lisinopril, hydralazine, nifedipine, and isosorbide mononitrate, in addition to Clonidine PRN. Patient remained in the hospital 2 nights under observation and 3 nights of inpatient stay which qualified him for chcf placement. Patient discharged to chcf, [facility], in stable condition pain medication and prescription for hypertensive medications. Patient to continue to receive chemotherapy and radiation on an outpatient basis. Transportation from [facility] to outpatient oncology center arranged by case management. - Time Spent with Patient Total time spent providing and/or coordinating discharge services: - Quality: VTE Deep Vein Thrombosis/Pulmonary Embolism Present on Admission: No Results Procedures completed during hospitalization: none - Impressions ITS Impressions Chest X-Ray 10/09/17 12:47 CONCLUSION: No acute cardiopulmonary disease. Head CT 10/09/17 14:03 CONCLUSION: No evidence of acute intracranial pathology. Chronic ischemic changes as above. There has been no significant change when compared to the prior exam. Soft Tissue Neck CT 10/09/17 14:03 CONCLUSION: 1. Decrease in size of the primary mass in the tongue base and vallecula. There is calcification of lymph nodes in the group to region on the right which bears reflect response to therapy. Limited evaluation secondary to the lack of intravenous contrast. Discharge Plan - Discharge Disposition Patient Disposition: Discharge to SNF - Discharge Condition Condition: Stable - Discharge Order Discharge Orders: Discharge Order (Routine); Ordered 10/14/17 Ordered By: Nora Boateng - Physicians Team Primary Care Provider: Mateo Pena Attending Provider: Shirley Cardona Other Providers: Jv Cruz MD ; Mateo Pena MD ; [facility] Brew[facility]
== END 2017-10-14 13:10 ==
LOC: NEDA 12:09 → NEPC 12:09 → NEPGCP 18:20 → HCIN 10-11 11:26
PROVIDERS: ADMIT Family Medicine; ATTEND Family Medicine

== ENCOUNTER 2017-11-10 09:54 | Observation (INO) ==
[2017-11-10] MEDS ORDERED: HYDROmorphone PF Inj 2 MG/ML Vial IV.PUSH ONE ×3 (10:50→12:50)
[2017-11-10 11:12] LABS: Baso % (Auto) 0.6 % (0.0-2.0); Eos % (Auto) 0.8 % (0.0-4.0); Hematocrit 28.4 % (39.0-51.0); Hemoglobin 9.7 gm/dL (13.0-17.0); Lymph # (Auto) 0.3 th/mm3 (1.0-4.8); Lymph % (Auto) 6.3 % (9.0-44.0); Mean Corpuscular HGB Conc 34.3 % (32.0-36.0); Mean Corpuscular Hemoglobin 30.6 pg (27.0-34.0); Mean Corpuscular Volume 89.2 fL (80.0-100.0); Mean Platelet Volume 6.9 fL (7.0-11.0); Mono # (Auto) 0.5 th/mm3 (0.0-0.9); Mono % (Auto) 10.1 % (0.0-8.0); Neut # (Auto) 4.5 th/mm3 (1.8-7.7); Neut % (Auto) 82.2 % (16.0-70.0); Platelet Count 198 th/mm3 (150-450); Red Blood Count 3.18 mil/mm3 (4.50-5.90); Red Cell Distribution Width 19.4 % (11.6-17.2); White Blood Count 5.4 th/mm3 (4.0-11.0)
[2017-11-10 11:19] LABS: Activated Partial Thrombo Time 29.2 sec (24.3-30.1); INR 1.1 Ratio
[2017-11-10 11:35] LABS: Anion Gap 8 meq/L (5-15); Blood Urea Nitrogen 31 mg/dL (7-18); Calcium 8.6 mg/dL (8.5-10.1); Carbon Dioxide 26.4 meq/L (21.0-32.0); Chloride 109 meq/L (98-107); Glomerular Filtration Rate 25 mL/min (>89); Glucose,Random 89 mg/dL (74-106); Potassium 3.8 meq/L (3.5-5.1); Sodium 143 meq/L (136-145)
--- NOTE | 2017-11-10 11:38 | XR ---
EXAM DATE: 11/10/2017 11:31 AM EDT AGE/SEX: 62 years / Male INDICATIONS: Chest pain. CLINICAL DATA: This is the patient's initial encounter. Patient reports that signs and symptoms have been present for 2 days and indicates a pain score of 10/10. MEDICAL/SURGICAL HISTORY: Hypertension. Carcinoma, prostatic. Myocardial infarction. COPD. H ead and neck cancer. Stroke. . Infusaport. COMPARISON: [facility], CHEST 1V SINGLE AP, 10/09/2017. . FINDINGS: Right subclavian [id number] in stable position. No new focal pleural or parenchymal opacities. Car diomediastinal contours are stable. Bony thorax is grossly intact. CONCLUSION: 1. No acute abnormality or significant interval change. Electronically signed by: Freddy Duong MD 11/10/2017 11:37 AM EDT
--- NOTE | 2017-11-10 11:41 | ECG ---
Date Performed: 11/10/2017 Time Performed: 10:28:39 PTAGE: 62 years EKG: Sinus rhythm RIGHT BUNDLE BRANCH BLOCK ABNORMAL ECG PREVIOUS TRACING : 09/02/2017 14.52 No significant change from previous tracing noted. DOCTOR: iKmani Brock Interpretating Date/Time 11/10/2017 11:40:28
[2017-11-10] MEDS ORDERED: Labetalol HCl Inj 100 MG/20 ML Vial IV.PUSH ONE (12:35)
--- NOTE | 2017-11-10 12:37 | ED ---
HPI General Chief complaint: Chest Pain Stated complaint: chest pain/CA pt Time Seen by Provider: 11/10/17 10:20 Source: patient and RN notes reviewed Mode of arrival: ambulatory History of Present Illness HPI narrative: 62yM presenting with chest pain. The patient states that this morning he began to have left-sided chest pain which is constant, "aching" radiates to his left shoulder, not made better or worse by anything, and severe. 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 Denies fever or chills but admits to nausea and vomiting. Oncologist is Dr. Pena. Related Data Previous Rx's Medication Instructions Recorded hydralazine 50 mg PO Q8HR 30 Days tab 10/14/17 hydromorphone 8 mg PO Q6H #120 tab 10/14/17 isosorbide mononitrate 30 mg PO DAILY@0700 30 Days tab 10/14/17 lisinopril 10 mg PO DAILY 30 Days #30 tab 10/14/17 nifedipine 60 mg PO Q12HR 30 Days tab 10/14/17 ondansetron 4 mg PO Q6H PRN #30 tab 10/14/17 sennosides-docusate sodium [Senna 1 tab PO DAILY 30 Days #30 tab 10/14/17 Plus] Allergies Allergy/AdvReac Type Severity Reaction Status Date / Time simvastatin AdvReac Severe Joint Pain Verified 11/10/17 10:14 Review of Systems ROS: all other systems reviewed are negative Constitutional Denies fever(s) Eyes Denies blurry vision ENT Reports odynophagia Cardiovascular Reports chest pain Respiratory Reports cough Gastrointestinal Reports nausea and Reports vomiting Genitourinary Denies dysuria Neurologic Denies confusion Psychiatric Denies confusion Endocrine Comments: (+) recent unintentional weight loss PMFSH History History Provided By: Patient Medical History Medical History HBP (high blood pressure) (Acute) Head and neck cancer (Acute) Surgical History Surgical History H/O neck surgery (Acute) History of eye surgery (Acute) History of knee surgery (Acute) PEG (percutaneous endoscopic gastrostomy) status (Acute) Family History Family History Mother Respiratory failure Social History Social History Substance History: No History of Abuse Second Hand Smoke Exposure: No Smoking Status: Former smoker Tobacco Type: Cigarettes How Often Do You Have a Drink Containing Alcohol: Never Recent Travel in [facility] within the Last 8 Weeks: No Recent Out of Country Travel within the Last 8 Weeks: No Immunization History Tetanus Immunization: Unable to Assess Hx Influenza Vaccine This Season: No Exam Const General: healthy appearing and no acute distress HENMT Head: normocephalic and atraumatic Face and sinus: normal facial exam Eyes General: appearance normal, both eyes and all related structures Pupils: PERRL Neck Other: Palpable mass on right side of neck Chest Chest: normal inspection of the chest Resp Effort & Inspection: normal respiratory effort Auscultation: no rhonchi and no wheezes Cardio Rate: regular rate Rhythm: regular rhythm Heart Sounds: murmur GI Inspection: non-distended Palpation: soft and nontender Skin General: no rashes or lesions noted Neuro General: alert, awake, oriented x3 and no focal motor deficits Psych Affect: normal affect Course Initial Documented Vital Signs Temperature 97.4 F L 11/10/17 09:58 Pulse Rate 84 11/10/17 09:58 Respiratory Rate 22 11/10/17 09:58 Blood Pressure 127/88 11/10/17 09:58 Pulse Oximetry 100 11/10/17 09:58 Last Documented Vital Signs Temperature 98.6 F 11/10/17 10:21 Pulse Rate 80 11/10/17 10:50 Respiratory Rate 16 11/10/17 11:25 Blood Pressure 180/115 H 11/10/17 10:21 Pulse Oximetry 96 11/10/17 10:50 Clinical Decision Support HEART Score Questions History: Moderately suspicious EKG: Non-specific repolarization disturbance Age: 45-64 years Risk Factors: 3 or more Risk Factors or Hx of Atherosclerotic Disease Initial Troponin: Normal Limit Heart Score HEART Score: 5 Medical Decision Making [facility] Narrative Medical decision making narrative: Assessment: 62yM presenting with chest pain Plan: EKG and monitor CXR Labs ASA Addendum: Patient's trop and EKG negative x 1, found to have acute on chronic kidney insufficiency, has required multiple doses of IV pain medication for his chronic disseminated cancer pain. Case discussed with Dr. Boateng ( resident), patient to be kept for observation/ serial trops/ cardiac monitoring. Patient understands and agrees with plan. Medical Screen Exam Complete: Yes Emergency Medical Condition: Yes Differential Diagnosis Differential Diagnosis: Differential diagnosis includes, but is not limited to: ACS, arrhythmia, pericarditis, pneumonia, pleural effusion, PE Lab Data Result diagrams: 11/10/17 10:54 11/10/17 10:54 Lab Results 11/10/17 11/10/17 11/10/17 Range/Units 10:54 10:54 10:54 WBC 5.4 (4.0-11.0) th/mm3 RBC 3.18 L (4.50-5.90) mil/mm3 Hgb 9.7 L (13.0-17.0) gm/dL Hct 28.4 L (39.0-51.0) % MCV 89.2 (80.0-100.0) fL MCH 30.6 (27.0-34.0) pg MCHC 34.3 (32.0-36.0) % RDW 19.4 H (11.6-17.2) % Plt Count 198 D (150-450) th/mm3 MPV 6.9 L (7.0-11.0) fL Neut % (Auto) 82.2 H (16.0-70.0) % Lymph % (Auto) 6.3 L (9.0-44.0) % [place] % (Auto) 10.1 H (0.0-8.0) % Eos % (Auto) 0.8 (0.0-4.0) % Baso % (Auto) 0.6 (0.0-2.0) % Neut # (Auto) 4.5 (1.8-7.7) th/mm3 Lymph # (Auto) 0.3 L (1.0-4.8) th/mm3 [place] # (Auto) 0.5 (0.0-0.9) th/mm3 Eos # (Auto) 0.0 (0.0-0.4) th/mm3 Baso # (Auto) 0.0 (0.0-0.2) th/mm3 WBC Differential . Differential Comment Auto diff final PT 11.0 (9.8-11.6) sec INR 1.1 Ratio APTT 29.2 (24.3-30.1) sec Sodium 143 (136-145) meq/L Potassium 3.8 (3.5-5.1) meq/L Chloride 109 H (98-107) meq/L Carbon Dioxide 26.4 (21.0-32.0) meq/L Anion Gap 8 (5-15) meq/L BUN 31 H (7-18) mg/dL Creatinine 2.67 H (0.60-1.30) mg/dL Estimated GFR 25 L (>89) mL/min Random Glucose 89 (74-106) mg/dL Calcium 8.6 (8.5-10.1) mg/dL Magnesium (1.5-2.5) mg/dL Troponin I Less than 0.02 L (0.02-0.05) ng/mL B-Natriuretic Peptide (0-100) pg/mL 11/10/17 11/10/17 Range/Units 10:54 10:54 WBC (4.0-11.0) th/mm3 RBC (4.50-5.90) mil/mm3 Hgb (13.0-17.0) gm/dL Hct (39.0-51.0) % MCV (80.0-100.0) fL MCH (27.0-34.0) pg MCHC (32.0-36.0) % RDW (11.6-17.2) % Plt Count (150-450) th/mm3 MPV (7.0-11.0) fL Neut % (Auto) (16.0-70.0) % Lymph % (Auto) (9.0-44.0) % [place] % (Auto) (0.0-8.0) % Eos % (Auto) (0.0-4.0) % Baso % (Auto) (0.0-2.0) % Neut # (Auto) (1.8-7.7) th/mm3 Lymph # (Auto) (1.0-4.8) th/mm3 [place] # (Auto) (0.0-0.9) th/mm3 Eos # (Auto) (0.0-0.4) th/mm3 Baso # (Auto) (0.0-0.2) th/mm3 WBC Differential Differential Comment PT (9.8-11.6) sec INR Ratio APTT (24.3-30.1) sec Sodium (136-145) meq/L Potassium (3.5-5.1) meq/L Chloride (98-107) meq/L Carbon Dioxide (21.0-32.0) meq/L Anion Gap (5-15) meq/L BUN (7-18) mg/dL Creatinine (0.60-1.30) mg/dL Estimated GFR (>89) mL/min Random Glucose (74-106) mg/dL Calcium (8.5-10.1) mg/dL Magnesium 1.9 (1.5-2.5) mg/dL Troponin I (0.02-0.05) ng/mL B-Natriuretic Peptide 305 H (0-100) pg/mL Imaging Data Radiologist's impression: Chest X-Ray 11/10/17 10:50 CONCLUSION: 1. No acute abnormality or significant interval change. ECG Data Attestation: I personally reviewed and interpreted this ECG as follows: Interpretation: Rate: 60 BPM Rhythm: Sinus Jeffers: Normal Intervals: Complete RBBB, QTc 475 ms Q waves: None T waves: Upright, no inversions ST segments: No elevations or depressions Impression: Non-specific EKG, no changes as compared to EKG from 09/02/2017. Discharge Plan Discharge Disposition Patient Disposition: 30 Still Patient Discharge Condition Condition: Stable Discharge Details Diagnosis: Chest pain, [id number] kidney injury, Intractable pain Physicians Team ED Provider: Jalyn Keane Primary Care Provider: Mateo Pena Rxs /Orders / Referrals /Forms Prescriptions: No Action isosorbide mononitrate 30 mg Tablet Extended Release 24 Hr 30 mg PO DAILY@0700 30 Days RF: 0 sennosides-docusate sodium [Senna Plus] 8.6-50 mg Tablet 1 tab PO DAILY 30 Days Qty: 30 RF: 0 nifedipine 60 mg Tablet Extended Release 24hr 60 mg PO Q12HR 30 Days RF: 0 hydralazine 50 mg Tablet 50 mg PO Q8HR 30 Days RF: 0 ondansetron 4 mg Tablet,Disintegrating 4 mg PO Q6H PRN (Reason: Nausea Or Vomiting) Qty: 30 RF: 0 lisinopril 10 mg Tablet 10 mg PO DAILY 30 Days Qty: 30 RF: 0 hydromorphone 2 mg Tablet 8 mg PO Q6H Qty: 120 RF: 0 Discharge Instructions Patient Printed Instructions: Chest Pain (ED) Discharge Interventions Interventions: Vital Signs Last Done: 11/10/17 09:58 Status ED Status: With Doctor
--- NOTE | 2017-11-10 13:07 | P.HPFP ---
History of Present Illness Primary Care Physician: Mateo Pena MD <MariamNalini David 11/11/17 12:51> Mateo Pena MD <Nora Boateng Carlito 11/10/17 13:07> History of Present Illness: Mr. Beard is a 62-year-old white male with a past medical history of squamous cell carcinoma of the pharynx presenting to the ED with chest pain. He states that this pain started last night. He describes it as a 10/10 stabbing pain and pressure in his left chest and radiating down his left arm. It is worse with movement, better with laying down and with a dose of nitroglycerin. He also had associated shortness of breath. He has a history of NH and states that this is the same pain that he had before. He is also had recent stress with his family and from his cancer. He has had issues with his nutrition and has lost more weight. He states that he has been vomiting all his food and tube feeds. His cancer is currently managed by Dr. Pena. Patient is unsure of whether he wants to continue with therapy and would like to discuss hospice options. <Nora Boateng 11/10/17 18:52> - Diagnosis (1) Chest pain (2) Squamous cell carcinoma of pharynx (3) Anemia (4) Chronic kidney disease (5) Hypertension (6) Nutrition, metabolism, and development symptoms (7) DVT prophylaxis <[place] Jewett[place]alini 11/11/17 12:51> (1) Chest pain (2) Squamous cell carcinoma of pharynx (3) Anemia (4) Chronic kidney disease (5) Hypertension (6) Nutrition, metabolism, and development symptoms (7) DVT prophylaxis <Nora Boateng 11/10/17 18:08> Review of Systems Constitutional: Denies chills, Denies fever(s), Denies night sweats <Nora Boateng 11/10/17 13:20> Eyes: Reports blurry vision <Nora Boateng 11/10/17 13:20> Ears, Nose, Mouth, and Throat: Reports difficulty swallowing, Reports pain with swallowing <Nora Boateng 11/10/17 13:20> Cardiovascular: Reports chest pain, Reports shortness of breath <Nora Boateng - 11/10/17 13:20> Respiratory: Denies cough <Nora Boateng - 11/10/17 13:20> Gastrointestinal: Denies abdominal pain, Denies change in stools <Nora Boateng - 11/10/17 13:20> Genitourinary: Denies difficulty urinating <Nora Boateng - 11/10/17 13:20> Musculoskeletal: Reports muscle weakness, Reports neck pain <Nora Boateng 13:20> Neurologic: Reports unsteadiness, Reports weakness <Nora Boateng - 11/10/17 13 :20> PMFSH - History History Provided By: Patient <Nora Boateng 11/10/17 13:07> - Medical History Medical History: Medical History (Last Reviewed 11/10/17 @ 12:54 by Jalyn Keane DO) HBP (high blood pressure) Head and neck cancer <[place] JewettNalini gonzáles - 11/11/17 12:51> Medical History (Last Reviewed 11/10/17 @ 12:54 by Jalyn Keane DO) HBP (high blood pressure) Head and neck cancer <Nora Boateng - 11/10/17 13:07> - Surgical History Surgical History: Surgical History (Last Reviewed 11/10/17 @ 12:54 by Jalyn Keane DO) H/O neck surgery History of eye surgery History of knee surgery PEG (percutaneous endoscopic gastrostomy) status <Nalini Becerra - 11/11/17 12:51> Surgical History (Last Reviewed 11/10/17 @ 12:54 by Jalyn Keane DO) H/O neck surgery History of eye surgery History of knee surgery PEG (percutaneous endoscopic gastrostomy) status <Nora Boateng - 11/10/17 13:07> - Family History Family History: Family History (Last Reviewed 11/10/17 @ 16:15 by Jv Cruz MD) Mother Respiratory failure <[place]ini - 11/11/17 12:51> Family History (Last Reviewed 11/10/17 @ 16:15 by Jv Cruz MD) Mother Respiratory failure <Nora Boateng - 11/10/17 18:52> - Tobacco History Second Hand Smoke Exposure: No <Nora Boateng - 11/10/17 13:07> Tobacco Use In Past 30 Days: No <Nora Boateng - 11/10/17 13:07> Smoking Status: Former smoker <Nora Boateng - 11/10/17 13:07> Tobacco Type: Cigarettes <Nora Boateng - 11/10/17 13:07> - Alcohol History How Often Do You Have a Drink Containing Alcohol: Never <Nora Boateng - 13:07> - Substance Use History Substance History: No History of Abuse <Nora Boateng - 11/10/17 13:07> - Travel History Recent Travel in the [place] Within the Last 8 Weeks: No <Nora Boateng - 11/10/17 13:07> Recent Travel Out of the Country Within the Last 8 Weeks: No <Nora Boateng - 11/10/17 13:07> - Immunization History Tetanus Immunization: Unable to Assess <Nora Boateng - 11/10/17 13:07> Hx Influenza Vaccine This Season: No <Nora Boateng - 11/10/17 13:07> Medications and Allergies Allergies Allergy/AdvReac Type Severity Reaction Status Date / Time simvastatin AdvReac Severe Joint Pain Verified 11/10/17 10:14 <Nalini Becerra - 11/11/17 12:51> Active Medications: Active Medications Acetaminophen (Tylenol) 650 mg PO Q4H PRN PRN Reason: Temp > 100.4 Heparin Sodium (Porcine) (Heparin Inj) 5,000 units SQ Q12HR TONY Last Admin: 11/11/17 08:30 Dose: 5,000 units Hydralazine HCl (Apresoline) 50 mg PO Q8HR TONY Last Admin: 11/11/17 06:13 Dose: 50 mg Hydromorphone HCl (Dilaudid) 8 mg PO Q4HR TONY Last Admin: 11/11/17 11:54 Dose: 8 mg Hydromorphone HCl (Dilaudid Pf Inj) 1 mg IV.PUSH Q3H PRN PRN Reason: BREAKTHROUGH PAIN Last Admin: 11/11/17 10:17 Dose: 1 mg Sodium Chloride (Ns Inj) 1,000 mls @ 100 mls/hr IV.CONT .Q10H [facility] Last Admin: 11/11/17 06:13 Dose: 100 mls/hr Isosorbide Mononitrate (Imdur) 30 mg PO DAILY@0700 [facility] Last Admin: 11/11/17 06:13 Dose: 30 mg Lisinopril (Prinivil) 10 mg PO DAILY [facility] Last Admin: 11/11/17 08:29 Dose: 10 mg Naloxone HCl (Narcan Inj) 0.4 mg IV.PUSH UNSCH PRN PRN Reason: SEE LABEL COMMENTS Nifedipine (Procardia Xl) 60 mg PO Q12HR [facility] Last Admin: 11/11/17 08:29 Dose: 60 mg Ondansetron HCl (Zofran Inj) 4 mg IV.PUSH Q6H PRN PRN Reason: NAUSEA OR VOMITING Senna/Docusate Sodium (Mary Lou-Colace) 1 tab PO BID [facility] Last Admin: 11/11/17 08:29 Dose: 1 tab Sodium Chloride (Ns Flush) 2 ml IV.FLUSH UNSCH PRN PRN Reason: FLUSH AFTER USING IV ACCESS Temazepam (Restoril) 15 mg PO HS PRN PRN Reason: INSOMNIA <Nalini Becerra - 11/11/17 12:51> Active Medications Sodium Chloride (Ns Flush) 2 ml IV.FLUSH UNSCH PRN PRN Reason: FLUSH AFTER USING IV ACCESS <Nora Boateng - 11/10/17 13:07> Exam Vital signs: Vital Signs 11/10/17 13:08 11/10/17 13:38 11/10/17 14:22 Temperature Pulse Rate 86 Respiratory Rate 10 L 16 Blood Pressure Pulse Oximetry 11/10/17 18:00 11/10/17 19:18 11/10/17 19:29 Temperature Pulse Rate 61 Respiratory Rate 16 16 20 Blood Pressure 139/86 Pulse Oximetry 100 11/10/17 20:00 11/10/17 21:00 11/10/17 22:00 Temperature 97.5 F L Pulse Rate 78 60 58 L Respiratory Rate 18 Blood Pressure 144/87 H Pulse Oximetry 99 11/10/17 23:00 11/11/17 00:00 11/11/17 01:00 Temperature 97.9 F Pulse Rate 62 74 58 L Respiratory Rate 18 Blood Pressure 129/73 Pulse Oximetry 98 11/11/17 02:00 08/16/18 03:00 11/11/17 04:00 Temperature 97.9 F Pulse Rate 60 56 L 59 L Respiratory Rate 18 Blood Pressure 140/78 Pulse Oximetry 98 11/11/17 05:00 11/11/17 05:49 11/11/17 11:56 Temperature Pulse Rate 66 60 Respiratory Rate 18 Blood Pressure Pulse Oximetry 11/11/17 11:58 Temperature Pulse Rate Respiratory Rate 18 Blood Pressure Pulse Oximetry Intake & Output 11/10/17 11/11/17 11/11/17 18:59 06:59 18:59 Intake Total 1839 184 Balance 1839 184 Weight 56.699 kg 57.2 kg Intake: IV 1000 / 1000 NS Inj 1,000 ML @ 100 mls/hr IV 1000 / 1000 .CONT .Q10H TONY Rx#:[id number] Oral 840 / 840 Other: # Voids 4 Date of Last Bowel Movement 11/10/17 <Nalini Becerra M - 11/11/17 12:51> Vital Signs 11/10/17 09:58 11/10/17 10:21 11/10/17 10:50 Temperature 97.4 F L 98.6 F Pulse Rate 84 63 80 Respiratory Rate 22 18 Blood Pressure 127/88 180/115 H Pulse Oximetry 100 100 96 11/10/17 11:25 Temperature Pulse Rate Respiratory Rate 16 Blood Pressure Pulse Oximetry Intake & Output 11/09/17 11/10/17 11/10/17 18:59 06:59 18:59 Weight 56.699 kg <Nora Boateng G - 11/10/17 13:07> Narrative: GENERAL: cachetic white male laying in bed, in mild distress due to neck pain SKIN: Warm and dry. HEAD: Atraumatic. Normocephalic. EYES: Pupils equal and round. No scleral icterus. No injection or drainage. ENT: No nasal bleeding or discharge. Mucous membranes pink and moist. Edentulous. NECK: Trachea midline. No JVD. CARDIOVASCULAR: Regular rate and rhythm. RESPIRATORY: No accessory muscle use. Clear to auscultation. Breath sounds equal bilaterally. GASTROINTESTINAL: Abdomen soft, non-tender, nondistended. Hepatic and splenic margins not palpable. G tube in place, no signs of infection. MUSCULOSKELETAL: Extremities without clubbing, cyanosis, or edema. No obvious deformities. NEUROLOGICAL: Awake and alert. No obvious cranial nerve deficits. Motor grossly within normal limits. Normal speech. <[place]ora - 11/10/17 18:52> Results - Labs Result diagrams: 11/11/17 06:18 11/11/17 06:18 <Nalini Becerra - 11/11/17 12:51> Abnormal lab results 11/10/17 11/10/17 11/11/17 Range/Units 16:00 18:48 00:30 RBC (4.50-5.90) mil/mm3 Hgb (13.0-17.0) gm/dL Hct (39.0-51.0) % RDW (11.6-17.2) % MPV (7.0-11.0) fL Neut % (Auto) (16.0-70.0) % Lymph % (Auto) (9.0-44.0) % [place] % (Auto) (0.0-8.0) % Lymph # (Auto) (1.0-4.8) th/mm3 BUN (7-18) mg/dL Creatinine (0.60-1.30) mg/dL Estimated GFR (>89) mL/min Calcium (8.5-10.1) mg/dL Troponin I Less than 0.02 L Less than 0.02 L (0.02-0.05) ng/mL Total Protein (6.4-8.2) g/dL Albumin (3.4-5.0) g/dL Urine Clarity Cloudy H (Clear) Urine Mucus Few H (Occasional) /lpf 11/11/17 11/11/17 Range/Units 06:18 06:18 RBC 2.62 L (4.50-5.90) mil/mm3 Hgb 8.0 L (13.0-17.0) gm/dL Hct 23.3 L (39.0-51.0) % RDW 19.1 H (11.6-17.2) % MPV 6.9 L (7.0-11.0) fL Neut % (Auto) 78.3 H (16.0-70.0) % Lymph % (Auto) 8.4 L (9.0-44.0) % [place] % (Auto) 11.3 H (0.0-8.0) % Lymph # (Auto) 0.4 L (1.0-4.8) th/mm3 BUN 34 H (7-18) mg/dL Creatinine 2.40 H (0.60-1.30) mg/dL Estimated GFR 28 L (>89) mL/min Calcium 7.9 L (8.5-10.1) mg/dL Troponin I (0.02-0.05) ng/mL Total Protein 6.3 L (6.4-8.2) g/dL Albumin 2.6 L (3.4-5.0) g/dL Urine Clarity (Clear) Urine Mucus (Occasional) /lpf Short CBC 11/11/17 Range/Units 06:18 WBC 4.8 (4.0-11.0) th/mm3 Hgb 8.0 L (13.0-17.0) gm/dL Hct 23.3 L (39.0-51.0) % Plt Count 160 (150-450) th/mm3 BMP 11/11/17 06:18 Sodium 141 Potassium 3.6 Chloride 107 Carbon Dioxide 27.9 BUN 34 H Creatinine 2.40 H Calcium 7.9 L Cardiac Enzymes 11/10/17 11/11/17 Range/Units 18:48 00:30 Troponin I Less than 0.02 L Less than 0.02 L (0.02-0.05) ng/mL Liver Function 11/11/17 Range/Units 06:18 Total Bilirubin 0.2 (0.2-1.0) mg/dL AST 31 (15-37) U/L ALT 36 (12-78) U/L Alkaline Phosphatase 99 (45-117) U/L Albumin 2.6 L (3.4-5.0) g/dL Urine 11/10/17 Range/Units 16:00 Urine Color Yellow (Yellw/Straw) Urine Clarity Cloudy H (Clear) Urine pH 5.0 (5.0-8.5) Ur Specific [place] 1.015 (1.002-1.035) Urine Protein Negative (Neg-Trace) mg/dL Urine Glucose (UA) 500 or greater (Negative) mg/dL <Nalini Becerra - 11/11/17 12:51> Abnormal lab results 11/10/17 11/10/17 11/10/17 Range/Units 10:54 10:54 10:54 RBC 3.18 L (4.50-5.90) mil/mm3 Hgb 9.7 L (13.0-17.0) gm/dL Hct 28.4 L (39.0-51.0) % RDW 19.4 H (11.6-17.2) % MPV 6.9 L (7.0-11.0) fL Neut % (Auto) 82.2 H (16.0-70.0) % Lymph % (Auto) 6.3 L (9.0-44.0) % [place] % (Auto) 10.1 H (0.0-8.0) % Lymph # (Auto) 0.3 L (1.0-4.8) th/mm3 Chloride 109 H (98-107) meq/L BUN 31 H (7-18) mg/dL Creatinine 2.67 H (0.60-1.30) mg/dL Estimated GFR 25 L (>89) mL/min Troponin I Less than 0.02 L (0.02-0.05) ng/mL B-Natriuretic Peptide 305 H (0-100) pg/mL Short CBC 11/10/17 Range/Units 10:54 WBC 5.4 (4.0-11.0) th/mm3 Hgb 9.7 L (13.0-17.0) gm/dL Hct 28.4 L (39.0-51.0) % Plt Count 198 D (150-450) th/mm3 BMP 11/10/17 10:54 Sodium 143 Potassium 3.8 Chloride 109 H Carbon Dioxide 26.4 BUN 31 H Creatinine 2.67 H Calcium 8.6 Cardiac Enzymes 11/10/17 Range/Units 10:54 Troponin I Less than 0.02 L (0.02-0.05) ng/mL <Nora Boateng - 11/10/17 13:07> - Imaging Impressions Chest X-Ray 11/10/17 10:50 CONCLUSION: 1. No acute abnormality or significant interval change. <Nora Boateng - 11/10/17 18:52> Caprini VTE Risk Assessment Caprini VTE Risk Assessment: Moderate/High Risk (score >= 2) <Nora Boateng - 11/10/17 18:52> Caprini Risk Assessment Model: Point Value = 1 Point Value = 2 Point Value = 3 Point Value = 5 Age 41-60 Minor surgery BMI > 25 kg/m2 Swollen legs Varicose veins or History of unexplained or recurrent spontaneous Oral contraceptives or hormone replacement Sepsis (< 1 month) Serious lung disease, including pneumonia (< 1 month) Abnormal pulmonary function Acute myocardial infarction Congestive heart failure (< 1 month) History of inflammatory bowel disease Medical patient at bed rest Age 61-74 Arthroscopic surgery Major open surgery (> 45 min) Laparoscopic surgery (> 45 min) Malignancy Confined to bed (> 72 hours) Immobilizing plaster cast Central venous access Age >= 75 History of VTE Family history of VTE Factor V Leiden Prothrombin [id number] Lupus anticoagulant Anticardiolipin antibodies Elevated serum homocysteine Heparin-induced thrombocytopenia Other congenital or acquired thrombophilia Stroke (< 1 month) Elective arthroplasty Hip, pelvis, or leg fracture Acute spinal cord injury (< 1 month) <Nalini Becerra - 11/11/17 12:51> Point Value = 1 Point Value = 2 Point Value = 3 Point Value = 5 Age 41-60 Minor surgery BMI > 25 kg/m2 Swollen legs Varicose veins or History of unexplained or recurrent spontaneous Oral contraceptives or hormone replacement Sepsis (< 1 month) Serious lung disease, including pneumonia (< 1 month) Abnormal pulmonary function Acute myocardial infarction Congestive heart failure (< 1 month) History of inflammatory bowel disease Medical patient at bed rest Age 61-74 Arthroscopic surgery Major open surgery (> 45 min) Laparoscopic surgery (> 45 min) Malignancy Confined to bed (> 72 hours) Immobilizing plaster cast Central venous access Age >= 75 History of VTE Family history of VTE Factor V Leiden Prothrombin [id number] Lupus anticoagulant Anticardiolipin antibodies Elevated serum homocysteine Heparin-induced thrombocytopenia Other congenital or acquired thrombophilia Stroke (< 1 month) Elective arthroplasty Hip, pelvis, or leg fracture Acute spinal cord injury (< 1 month) <Nora Boateng - 11/10/17 13:07> Prophylaxis Regimen: Total Risk Factor Score Risk Level Prophylaxis Regimen 0-1 Low Early ambulation 2 Moderate Order ONE of the following: *Sequential Compression Device (SCD) *Heparin 5000 units SQ BID 3-4 Higher Order ONE of the following medications: *Heparin 5000 units SQ TID *Enoxaparin/Lovenox 40 mg SQ daily (WT < 150 kg, CrCl > 30 mL/min) *Enoxaparin/Lovenox 30 mg SQ daily (WT < 150 kg, CrCl > 10-29 mL/min) *Enoxaparin/Lovenox 30 mg SQ BID (WT < 150 kg, CrCl > 30 mL/min) AND/OR *Sequential Compression Device (SCD) 5 or more Highest Order ONE of the following medications: *Heparin 5000 units SQ TID (Preferred with Epidurals) *Enoxaparin/Lovenox 40 mg SQ daily (WT < 150 kg, CrCl > 30 mL/min) *Enoxaparin/Lovenox 30 mg SQ daily (WT < 150 kg, CrCl > 10-29 mL/min) *Enoxaparin/Lovenox 30 mg SQ BID (WT < 150 kg, CrCl > 30 mL/min) AND *Sequential Compression Device (SCD) <Nalini Becerra - 11/11/17 12:51> Total Risk Factor Score Risk Level Prophylaxis Regimen 0-1 Low Early ambulation 2 Moderate Order ONE of the following: *Sequential Compression Device (SCD) *Heparin 5000 units SQ BID 3-4 Higher Order ONE of the following medications: *Heparin 5000 units SQ TID *Enoxaparin/Lovenox 40 mg SQ daily (WT < 150 kg, CrCl > 30 mL/min) *Enoxaparin/Lovenox 30 mg SQ daily (WT < 150 kg, CrCl > 10-29 mL/min) *Enoxaparin/Lovenox 30 mg SQ BID (WT < 150 kg, CrCl > 30 mL/min) AND/OR *Sequential Compression Device (SCD) 5 or more Highest Order ONE of the following medications: *Heparin 5000 units SQ TID (Preferred with Epidurals) *Enoxaparin/Lovenox 40 mg SQ daily (WT < 150 kg, CrCl > 30 mL/min) *Enoxaparin/Lovenox 30 mg SQ daily (WT < 150 kg, CrCl > 10-29 mL/min) *Enoxaparin/Lovenox 30 mg SQ BID (WT < 150 kg, CrCl > 30 mL/min) AND *Sequential Compression Device (SCD) <Nora Boateng - 11/10/17 13:07> Assessment and Plan - Assessment (1) Chest pain Code(s): R07.9 - Chest pain, unspecified Status: Acute (2) Squamous cell carcinoma of pharynx Code(s): C14.0 - Malignant neoplasm of pharynx, unspecified Status: Chronic (3) Anemia Code(s): D64.9 - Anemia, unspecified Status: Chronic (4) Chronic kidney disease Code(s): N18.9 - Chronic kidney disease, unspecified Status: Chronic (5) Hypertension Code(s): I10 - Essential (primary) hypertension Status: Chronic (6) Nutrition, metabolism, and development symptoms Code(s): R63.8 - Other symptoms and signs concerning food and fluid intake Status: Acute (7) DVT prophylaxis Status: Acute <Nalini Becerra - 11/11/17 12:51> (1) Chest pain Code(s): R07.9 - Chest pain, unspecified Status: Acute Plan: Patient presenting with chest pain that is similar to eyes in the past. Troponin on admission is negative. Will conduct ACS rule out. EKG on admission is similar to last EKG on 09/02 showing sinus rhythm with RBBB CXR on admission shows no acute abnormality or significant interval change Trend troponins 3 with corresponding EKGs Aspirin 325 mg given in ED Nitropaste (2) Squamous cell carcinoma of pharynx Code(s): C14.0 - Malignant neoplasm of pharynx, unspecified Status: Chronic Plan: Diagnosed and Started on Chemotherapy in June 2017. Treated by Dr. Pena of Heme Onc and Dr. Martinez of Radiation Oncology. Consult oncology, appreciate recommendations Consult palliative care due to being interested in hospice care, appreciate recommendations Resume at home pain regimen, can adjust as needed -Dilaudid 8 mg p.o. 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 Appears to be normocytic in nature due to MCV of 89.2. Will continue to monitor trend and will transfuse if falls below 8. (4) Chronic kidney disease Code(s): N18.9 - Chronic kidney disease, unspecified Status: Chronic Plan: Creatinine on admission is 2.67. Last creatinine recorded on 10/26 was 2.19. Disease may be worsening or may be an acute issue. Continue to monitor through BMPs Renally dose medications Avoid nephrotoxic medications (5) Hypertension Code(s): I10 - Essential (primary) hypertension Status: Chronic Plan: Continue at home medications -hydralazine 50 mg p.o. every 8 hours -Isosorbide mononitrate 30 mg p.o. daily -Lisinopril 10 mg p.o. daily -Nifedipine 60 mg p.o. every 12 hours (6) Nutrition, metabolism, and development symptoms Code(s): R63.8 - Other symptoms and signs concerning food and fluid intake Status: Acute Plan: Fluids: tolerating PO Electrolytes: monitor and replete as needed Nutrition: Tube feeding with try, dietary consulted Zofran IV for nausea (7) DVT prophylaxis Status: Acute Plan: DVT Prophylaxis: Early ambulation. 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 Admitted to observation for ACS rule out. <Nora Boateng 11/10/17 18:52> Discussed Condition With: Dr. Becerra, Dr. Fisher <Nora Boateng 11/10/17 18:52> Discharge Planning: Pending clinical course <Nora Boateng 11/10/17 18:52> - Attending Attestation The exam, history, and the medical decision-making described in the above note were completed with the assistance of the resident physician. I reviewed and agree with the findings presented. I attest that I had a [id number] encounter with the patient on the same day, and personally performed and documented my assessment and findings in the medical record. He was seen on the day of admission in the emergency department. He has been very discouraged based on not being able to complete his radiation and chemo due to multiple social situations and other issues. He is very upset about not being able to taste his food and has lost more weight. He also would say at times that he was contemplating hospice where he believed that he was not going to live much longer. Records would have to be reviewed to find out his prognosis. However his lymph node and tumor has responded so far to the radiation and chemo. <Nalini Becerra David - 11/11/17 12:51> <Nora Boateng G - Last Filed: 11/10/17 18:08> (3) Anemia Qualifiers: Anemia type: unspecified type Qualified Code(s): D64.9 - Anemia, unspecified (4) Chronic kidney disease Qualifiers: Chronic kidney disease stage: stage 4 (severe) Qualified Code(s): N18.4 - Chronic kidney disease, stage 4 (severe) (5) Hypertension Qualifiers: Hypertension type: essential hypertension Qualified Code(s): I10 - Essential (primary) hypertension <Nalini Becerra M - Last Filed: 11/11/17 12:51> (3) Anemia Qualifiers: Anemia type: unspecified type Qualified Code(s): D64.9 - Anemia, unspecified (4) Chronic kidney disease Qualifiers: Chronic kidney disease stage: stage 4 (severe) Qualified Code(s): N18.4 - Chronic kidney disease, stage 4 (severe) (5) Hypertension Qualifiers: Hypertension type: essential hypertension Qualified Code(s): I10 - Essential (primary) hypertension <Nora Boateng - Last Filed: 11/10/17 18:08> (3) Anemia Qualifiers: Anemia type: unspecified type Qualified Code(s): D64.9 - Anemia, unspecified (4) Chronic kidney disease Qualifiers: Chronic kidney disease stage: stage 4 (severe) Qualified Code(s): N18.4 - Chronic kidney disease, stage 4 (severe) (5) Hypertension Qualifiers: Hypertension type: essential hypertension Qualified Code(s): I10 - Essential (primary) hypertension <Nalini Becerra M - Last Filed: 11/11/17 12:51> (3) Anemia Qualifiers: Anemia type: unspecified type Qualified Code(s): D64.9 - Anemia, unspecified (4) Chronic kidney disease Qualifiers: Chronic kidney disease stage: stage 4 (severe) Qualified Code(s): N18.4 - Chronic kidney disease, stage 4 (severe) (5) Hypertension Qualifiers: Hypertension type: essential hypertension Qualified Code(s): I10 - Essential (primary) hypertension
[2017-11-10] MEDS ORDERED: Acetaminophen 325 MG Tablet PO PRN (13:30)
[2017-11-10] MEDS ORDERED: Temazepam 15 MG Capsule PO PRN (13:30)
[2017-11-10] MEDS ORDERED: Naloxone Inj 0.4 MG/ML Vial IV.PUSH PRN (13:40)
[2017-11-10] MEDS: Lisinopril 10 MG Tablet PO SCH (15:05)
[2017-11-10] MEDS: hydrALAZINE 50 MG Tablet PO SCH ×2 (15:21→20:59)
[2017-11-10] MEDS: HYDROmorphone PF Inj 2 MG/ML Vial IV.PUSH PRN ×3 (16:17→22:55)
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
[2017-11-10 16:57] LABS: Bilirubin,Urine Negative (Negative); Clarity,Urine Cloudy (Clear); Color,Urine Yellow (Yellw/Straw); Glucose,Urine (UA) 500 or Greater mg/dL (Negative); Leukocyte Esterase,Urine Negative (Negative); Mucus,Urine Few /lpf (Occasional); Nitrite,Urine Negative (Negative); Specific Gravity,Urine 1.015 (1.002-1.035)
[2017-11-10] MEDS: Senna/Docusate Sodium 8.6/50 MG Tablet PO SCH (20:58)
[2017-11-10] MEDS: Heparin - SQ 10,000 UNITS/ML Vial SQ SCH (20:59)
[2017-11-10] MEDS: Sod Chloride 0.9% Inj 1,000 ML IV.CONT SCH (21:06)
[2017-11-11] MEDS: HYDROmorphone PF Inj 2 MG/ML Vial IV.PUSH PRN ×6 (01:58→22:30)
[2017-11-11] MEDS: Isosorbide Mononitrate 30 MG ER 24HR Tablet (Imdur) PO SCH (06:13)
[2017-11-11] MEDS: hydrALAZINE 50 MG Tablet PO SCH ×3 (06:13→22:29)
[2017-11-11] MEDS: Sod Chloride 0.9% Inj 1,000 ML IV.CONT SCH ×2 (06:13→16:24)
[2017-11-11 06:53] LABS: Baso % (Auto) 0.5 % (0.0-2.0); Eos # (Auto) 0.1 th/mm3 (0.0-0.4); Eos % (Auto) 1.5 % (0.0-4.0); Hematocrit 23.3 % (39.0-51.0); Lymph # (Auto) 0.4 th/mm3 (1.0-4.8); Lymph % (Auto) 8.4 % (9.0-44.0); Mean Corpuscular HGB Conc 34.5 % (32.0-36.0); Mean Corpuscular Hemoglobin 30.7 pg (27.0-34.0); Mean Corpuscular Volume 88.9 fL (80.0-100.0); Mean Platelet Volume 6.9 fL (7.0-11.0); Mono # (Auto) 0.5 th/mm3 (0.0-0.9); Mono % (Auto) 11.3 % (0.0-8.0); Neut # (Auto) 3.7 th/mm3 (1.8-7.7); Neut % (Auto) 78.3 % (16.0-70.0); Platelet Count 160 th/mm3 (150-450); Red Blood Count 2.62 mil/mm3 (4.50-5.90); Red Cell Distribution Width 19.1 % (11.6-17.2); White Blood Count 4.8 th/mm3 (4.0-11.0)
[2017-11-11 07:13] LABS: Albumin 2.6 g/dL (3.4-5.0); Anion Gap 6 meq/L (5-15); Aspartate Aminotransferase 31 U/L (15-37); Blood Urea Nitrogen 34 mg/dL (7-18); Calcium 7.9 mg/dL (8.5-10.1); Carbon Dioxide 27.9 meq/L (21.0-32.0); Chloride 107 meq/L (98-107); Glomerular Filtration Rate 28 mL/min (>89); Glucose,Random 105 mg/dL (74-106); Potassium 3.6 meq/L (3.5-5.1); Sodium 141 meq/L (136-145)
[2017-11-11 07:15] LABS: Alanine Aminotransferase 36 U/L (12-78)
[2017-11-11 07:17] LABS: Alkaline Phosphatase 99 U/L (45-117); Total Protein 6.3 g/dL (6.4-8.2)
--- NOTE | 2017-11-11 07:57 | P.CON ---
History of Present Illness Service: Hematology/oncology Consult date: 11/11/17 Reason for Consult: Patient with diagnosis of squamous cell carcinoma of the head and neck. Primary Care Provider: Mateo Pena MD Chief Complaint: "I am so weak I cannot walk ". History of Present Illness: Mr. Beard is a very pleasant 62-year-old man who is well-known to me and my service. Mr. Beard was diagnosed with squamous cell carcinoma of the base of the tongue in June 2017, he had pathologically enlarged right-sided cervical lymph nodes. His disease was without evidence of distal metastases. The patient was initiated on definitive (curative intent) combined chemoradiotherapy in August 2017. Due to his history of chronic renal insufficiency he was treated with carboplatin and paclitaxel on a weekly basis and has thus far received treatments in the inpatient and outpatient setting. The patient has had suboptimal treatment dosing density due to repeated hospitalizations secondary to dehydration, malnourishment and failure to thrive. Mr. 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 Additionally he had been solely responsible for raising his 9-year-old daughter , recently he tells me his daughter has been put into foster care because he has not been able to care for her. He also not able to stay in his home because he was unable to care for himself or for the house and have to move in to his ex-'s home in [place]. The patient reports having lost significant weight over the past several weeks, he is down to 110 pounds, his starting weight was over 170 pounds. He tells me he felt so weak he was unable to walk and felt dizzy every time he stood up. He also began to have chest pain and came into the emergency department for further workup and evaluation. Overnight he has been treated with IV fluid hydration and pain control. The patient tells me he has been trying to eat but it hurts when he swallows, he tells me he has been trying to take his tube feeds but often has nausea and regurgitation of the tube feeds after he pours the tube feeds into his PEG tube. Review of Systems Constitutional: Reports anorexia, Reports fatigue, Reports lack of energy, Reports weight loss Eyes: Denies change in vision Ears, Nose, Mouth, and Throat: Reports change in voice, Reports ringing in the ears, Reports sore throat, Reports throat swelling, Denies abnormal hearing Cardiovascular: Reports chest pain, Reports shortness of breath with activity, Denies chest pain at rest, Denies chest pain with activity Respiratory: Reports cough Gastrointestinal: Denies abdominal pain (Morning) Genitourinary: Denies blood in urine Musculoskeletal: Denies abnormal walking Neurologic: Denies abnormal hearing Psychiatric: Denies anxiety Endocrine: Denies cold intolerance Hematologic/Lymphatic: Denies easy bleeding Allergic/Immunologic: Denies GI upset with certain foods PMFSH - History History Provided By: Patient - Medical History Medical History: Medical History (Last Updated 11/11/17 @ 07:48 by Mateo Pena MD) Adult failure to thrive Anxiety Chronic renal failure, stage 3 (moderate) Hepatitis C MRSA (methicillin resistant Staphylococcus aureus) infection Posttraumatic stress disorder Prostate carcinoma Protein calorie malnutrition Squamous cell carcinoma of base of tongue HBP (high blood pressure) Head and neck cancer - Surgical History Surgical History: Surgical History (Last Reviewed 11/10/17 @ 12:54 by Jalyn Keane DO) H/O neck surgery History of eye surgery History of knee surgery PEG (percutaneous endoscopic gastrostomy) status - Family History Family History: Family History (Last Reviewed 11/10/17 @ 16:15 by Jv Cruz MD) Mother Respiratory failure - Tobacco History Second Hand Smoke Exposure: No Tobacco Use In Past 30 Days: No Smoking Status: Former smoker Tobacco Type: Cigarettes - Alcohol History How Often Do You Have a Drink Containing Alcohol: Never - Substance Use History Substance History: No History of Abuse - Travel History Recent Travel in the [place] Within the Last 8 Weeks: No Recent Travel Out of the Country Within the Last 8 Weeks: No - Immunization History Tetanus Immunization: Unable to Assess Hx Influenza Vaccine This Season: No Medications and Allergies Active Medications: Active Medications Acetaminophen (Tylenol) 650 mg PO Q4H PRN PRN Reason: Temp > 100.4 Heparin Sodium (Porcine) (Heparin Inj) 5,000 units SQ Q12HR [facility] Last Admin: 11/10/17 20:59 Dose: 5,000 units Hydralazine HCl (Apresoline) 50 mg PO Q8HR [facility] Last Admin: 11/11/17 06:13 Dose: 50 mg Hydromorphone HCl (Dilaudid) 8 mg PO Q4HR [facility] Last Admin: 11/11/17 04:10 Dose: 8 mg Hydromorphone HCl (Dilaudid Pf Inj) 1 mg IV.PUSH Q3H PRN PRN Reason: BREAKTHROUGH PAIN Last Admin: 11/11/17 06:14 Dose: 1 mg Sodium Chloride (Ns Inj) 1,000 mls @ 100 mls/hr IV.CONT .Q10H [facility] Last Admin: 11/11/17 06:13 Dose: 100 mls/hr Isosorbide Mononitrate (Imdur) 30 mg PO DAILY@0700 [facility] Last Admin: 11/11/17 06:13 Dose: 30 mg Lisinopril (Prinivil) 10 mg PO DAILY [facility] Last Admin: 11/10/17 15:05 Dose: 10 mg Naloxone HCl (Narcan Inj) 0.4 mg IV.PUSH UNSCH PRN PRN Reason: SEE LABEL COMMENTS Nifedipine (Procardia Xl) 60 mg PO Q12HR [facility] Last Admin: 11/10/17 20:57 Dose: 60 mg Ondansetron HCl (Zofran Inj) 4 mg IV.PUSH Q6H PRN PRN Reason: NAUSEA OR VOMITING Senna/Docusate Sodium (Mary Lou-Colace) 1 tab PO BID [facility] Last Admin: 11/10/17 20:58 Dose: Not Given Sodium Chloride (Ns Flush) 2 ml IV.FLUSH UNSCH PRN PRN Reason: FLUSH AFTER USING IV ACCESS Temazepam (Restoril) 15 mg PO HS PRN PRN Reason: INSOMNIA Allergies Allergy/AdvReac Type Severity Reaction Status Date / Time simvastatin AdvReac Severe Joint Pain Verified 11/10/17 10:14 Physical Exam Vital signs: Vital Signs 11/10/17 09:58 11/10/17 10:21 11/10/17 10:50 Temperature 97.4 F L 98.6 F Pulse Rate 84 63 80 Respiratory Rate 22 18 Blood Pressure 127/88 180/115 H Pulse Oximetry 100 100 96 11/10/17 11:25 11/10/17 12:50 11/10/17 13:08 Temperature Pulse Rate 67 Respiratory Rate 16 18 10 L Blood Pressure 162/80 H Pulse Oximetry 98 11/10/17 13:38 11/10/17 14:22 11/10/17 18:00 Temperature Pulse Rate 86 Respiratory Rate 16 16 Blood Pressure Pulse Oximetry 11/10/17 19:18 11/10/17 19:29 11/10/17 20:00 Temperature 97.5 F L Pulse Rate 61 78 Respiratory Rate 16 20 18 Blood Pressure 139/86 144/87 H Pulse Oximetry 100 99 11/10/17 21:00 11/10/17 22:00 11/10/17 23:00 Temperature Pulse Rate 60 58 L 62 Respiratory Rate Blood Pressure Pulse Oximetry 11/11/17 00:00 11/11/17 01:00 11/11/17 02:00 Temperature 97.9 F Pulse Rate 74 58 L 60 Respiratory Rate 18 Blood Pressure 129/73 Pulse Oximetry 98 11/11/17 03:00 11/11/17 04:00 11/11/17 05:00 Temperature 97.9 F Pulse Rate 56 L 59 L 66 Respiratory Rate 18 Blood Pressure 140/78 Pulse Oximetry 98 11/11/17 05:49 Temperature Pulse Rate 60 Respiratory Rate Blood Pressure Pulse Oximetry Intake & Output 11/10/17 11/11/17 11/11/17 18:59 06:59 18:59 Intake Total 1840 / 1840 Balance 1840 / 1840 Weight 56.699 kg 57.2 kg Intake: IV 1000 / 1000 NS Inj 1,000 ML @ 100 mls/hr IV 1000 / 1000 .CONT .Q10H [facility] Rx#:[id number] Oral 840 / 840 Other: # Voids 4 Date of Last Bowel Movement 11/10/17 - Constitutional no acute distress, disheveled, cooperative Comments: Chronically ill and cachectic appearing. He has alopecia of chemotherapy. He is awake, alert and oriented and cooperative. - Routine HEENT Exam Head: Present: normocephalic, atraumatic - Routine Neck Exam Present: supple, full ROM, lymphadenopathy Comments: Radiation changes along bilateral aspects of the neck. The pathologically enlarged right sided upper cervical lymph node has significantly decreased in size from pretreatment levels. This now measures approximately 1.5 cm. This signifies an impressive reduction in size. Oral examination: Dry mucous membranes, thrush noted. No ulceration or active bleeding. No masses noted. - Routine Respiratory Exam Present: CTA bilaterally, prolonged expiratory phase. Absent: accessory muscle use, decreased breath sounds, rales, respiratory distress - Routine Cardiovascular Exam Present: RRR, S1, S2. Absent: murmur, gallop, rubs, S3 - Routine Abdominal Exam Present: soft. Absent: tenderness, guarding Comments: PEG tube in place. - Routine Extremities Exam Absent: cyanosis, clubbing Comments: Generalized decreased muscle mass, muscle atrophy. - Routine Skin Exam Present: intact, dry. Absent: cyanosis, erythema - Routine Neurological Exam Present: alert, oriented X3. Absent: CN II-XII intact, sensory deficit - Detailed Neurological Exam: Coma Scale Eye Opening: Spontaneous - Routine Psychiatric Exam Absent: normal affect Assessment and Plan - Plan Mr. 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 No evidence of distal metastases. From a clinical standpoint he has T2 N2 M0; stage KRISTIN disease. Presently on curative intent combined chemoradiotherapy. He has been on treatment since early August 2017. He has 5 fractions of radiation remaining and if his renal function and clinical condition allows 1 additional dose of weekly carboplatin and paclitaxel. He comes into the hospital with complaints of progressive weakness , fatigue, weight loss, chest pain. He tells me he has not been able to maintain adequate oral nutritional intake and has also not been able to maintain nutritional intake via PEG tube. He tells me he has not been able to care for himself ever since he was discharged from his custodial facility because of generalized weakness and also due to the lack of support. Because he was unable to care for himself and his daughter, his daughter has been put into foster care and he is no longer able to live in his own house, yet the moving with his ex- in [place]. He presents the hospital with the above-noted symptoms, blood work indicates acute on chronic renal insufficiency. Clinically he appears to be significantly masticated and dehydrated. From an oncologic standpoint with appropriate supportive care i.e. IV fluid hydration and nutrition as well as physical therapy he should be able to complete definitive (curative intent) therapy. Based on the clinical response to treatment thus far I suspect there is a reasonable chance that his current treatment i.e. combined chemoradiotherapy will result in a durable remission. Recommendations: 1. Squamous cell carcinoma of the oropharynx: Initiate IV fluid hydration with normal saline. I will request dietary consultation to make recommendations regarding tube feeding. In the meantime I would also recommend him being allowed to eat orally to maintain nutritional intake and caloric intake. The patient has already been seen by Dr. Martinez of radiation oncology and radiation will be resumed while in the hospital. Ideally, I would like him to receive his last weekly dosing of carboplatin and paclitaxel in hospital while he is under our care. 2. Chronic renal insufficiency: This is a chronic issue, he seems to respond very well to IV fluid hydration. 3. Chest pain: Await cardiology evaluation. 4. Symptom management: Palliative care is following. I would appreciate their assistance in managing his symptoms. This patient however is not curative intent treatment and with the appropriate supportive care he should be able to recover. Thank you for asking oncology to see this patient, we will follow along with you.
[2017-11-11] MEDS: Lisinopril 10 MG Tablet PO SCH (08:29)
[2017-11-11] MEDS: Senna/Docusate Sodium 8.6/50 MG Tablet PO SCH ×2 (08:29→20:32)
[2017-11-11] MEDS: Heparin - SQ 10,000 UNITS/ML Vial SQ SCH ×2 (08:30→20:32)
--- NOTE | 2017-11-11 08:56 | P.CON ---
History of Present Illness Service: Radiation oncology Consult date: 11/11/17 Requesting Physician: Nalini Becerra Reason for Consult: Patient been evaluated for continuation of care Primary Care Provider: Mateo Pena MD Chief Complaint: "I am so weak I cannot walk ". History of Present Illness: 62-year-old white male known to me as he is undergoing concurrent chemoradiation therapy the present time. Patient says that he had to move to [facility], with his ex- due to the fact that he could not take care of the house anymore or his child. He said that he was having issues finding that transportation to the center for treatment. He also was having issues with failure to thrive keeping up with hydration and nutrition. He said that he got so weak that he could not walk and started having chest pain, as a result of this he came into the emergency room where he was evaluated and admitted for workup. A consult has been placed for continuation of radiation therapy. Patient says that he feels much better since being admitted and the mass of the right neck has decreased dramatically in size. Review of Systems Constitutional: Reports anorexia, Reports fatigue, Reports lack of energy, Reports malaise, Reports weakness, Reports weight loss Eyes: Reports blind spots, Reports loss of vision Ears, Nose, Mouth, and Throat: Reports abnormal hearing, Reports dizziness, Reports dry mouth, Reports hearing loss, Reports neck lump, Reports poor balance Cardiovascular: Reports chest pain, Reports chest pain at rest, Reports fainting , Reports lightheadedness, Reports shortness of breath, Reports shortness of breath with activity Respiratory: Reports shortness of breath with activity Gastrointestinal: Reports nausea, Reports vomiting Genitourinary: Denies blood in semen, Denies blood in urine, Denies decreased urination, Denies difficulty urinating, Denies difficulty with ejaculations, Denies erectile dysfunction, Denies genital lesions, Denies genital pain, Denies painful urination, Denies side pain, Denies frequent nighttime urination , Denies painful ejaculations, Denies penile discharge, Denies scrotal swelling , Denies testicle lump, Denies testicle pain, Denies urinary frequency, Denies urinary hesitancy, Denies urinary incontinence, Denies urinary urgency, Denies other Musculoskeletal: Reports back pain, Reports body aches, Reports decreased muscle mass, Reports joint pain, Reports muscle weakness Skin/Breast: Reports dry skin Neurologic: Reports weakness Psychiatric: Denies abnormal sleep pattern, Denies anxiety, Denies behavioral changes, Denies change in appetite, Denies change in sex drive, Denies confusion , Denies depression, Denies difficulty concentrating, Denies hearing things others do not hear, Denies hopelessness, Denies irritability, Denies lack of enjoyment, Denies memory loss, Denies mood swings, Denies panic attacks, Denies paranoia, Denies seeing things others do not see, Denies sensing things others do not sense, Denies tactile hallucinations, Denies thoughts of hurting/killing others, Denies thoughts of hurting/killing yourself, Denies other Endocrine: Denies cold intolerance, Denies excessive sweating, Denies flushing, Denies heat intolerance, Denies increased hunger, Denies increased thirst, Denies increased urination, Denies rapid, pounding, or irregular heartbeat, Denies other Hematologic/Lymphatic: Reports enlarged lymph nodes Allergic/Immunologic: Reports GI upset with certain foods PMFSH - History History Provided By: Patient - Medical History Medical History: Medical History (Last Updated 11/11/17 @ 07:48 by Mateo Pena MD) Adult failure to thrive Anxiety Chronic renal failure, stage 3 (moderate) Hepatitis C MRSA (methicillin resistant Staphylococcus aureus) infection Posttraumatic stress disorder Prostate carcinoma Protein calorie malnutrition Squamous cell carcinoma of base of tongue HBP (high blood pressure) Head and neck cancer - Surgical History Surgical History: Surgical History (Last Reviewed 11/10/17 @ 12:54 by Jalyn Keane DO) H/O neck surgery History of eye surgery History of knee surgery PEG (percutaneous endoscopic gastrostomy) status - Family History Family History: Family History (Last Reviewed 11/10/17 @ 16:15 by Jv Cruz MD) Mother Respiratory failure - Tobacco History Second Hand Smoke Exposure: No Tobacco Use In Past 30 Days: No Smoking Status: Former smoker Tobacco Type: Cigarettes - Alcohol History How Often Do You Have a Drink Containing Alcohol: Never - Substance Use History Substance History: No History of Abuse - Travel History Recent Travel in the [place] Within the Last 8 Weeks: No Recent Travel Out of the Country Within the Last 8 Weeks: No - Immunization History Tetanus Immunization: Unable to Assess Hx Influenza Vaccine This Season: No Medications and Allergies Active Medications: Active Medications Acetaminophen (Tylenol) 650 mg PO Q4H PRN PRN Reason: Temp > 100.4 Heparin Sodium (Porcine) (Heparin Inj) 5,000 units SQ Q12HR [facility] Last Admin: 11/11/17 08:30 Dose: 5,000 units Hydralazine HCl (Apresoline) 50 mg PO Q8HR [facility] Last Admin: 11/11/17 06:13 Dose: 50 mg Hydromorphone HCl (Dilaudid) 8 mg PO Q4HR [facility] Last Admin: 11/11/17 08:30 Dose: 8 mg Hydromorphone HCl (Dilaudid Pf Inj) 1 mg IV.PUSH Q3H PRN PRN Reason: BREAKTHROUGH PAIN Last Admin: 11/11/17 06:14 Dose: 1 mg Sodium Chloride (Ns Inj) 1,000 mls @ 100 mls/hr IV.CONT .Q10H [facility] Last Admin: 11/11/17 06:13 Dose: 100 mls/hr Isosorbide Mononitrate (Imdur) 30 mg PO DAILY@0700 [facility] Last Admin: 11/11/17 06:13 Dose: 30 mg Lisinopril (Prinivil) 10 mg PO DAILY [facility] Last Admin: 11/11/17 08:29 Dose: 10 mg Naloxone HCl (Narcan Inj) 0.4 mg IV.PUSH UNSCH PRN PRN Reason: SEE LABEL COMMENTS Nifedipine (Procardia Xl) 60 mg PO Q12HR [facility] Last Admin: 11/11/17 08:29 Dose: 60 mg Ondansetron HCl (Zofran Inj) 4 mg IV.PUSH Q6H PRN PRN Reason: NAUSEA OR VOMITING Senna/Docusate Sodium (Mary Lou-Colace) 1 tab PO BID [facility] Last Admin: 11/11/17 08:29 Dose: 1 tab Sodium Chloride (Ns Flush) 2 ml IV.FLUSH UNSCH PRN PRN Reason: FLUSH AFTER USING IV ACCESS Temazepam (Restoril) 15 mg PO HS PRN PRN Reason: INSOMNIA Allergies Allergy/AdvReac Type Severity Reaction Status Date / Time simvastatin AdvReac Severe Joint Pain Verified 11/10/17 10:14 Physical Exam Vital signs: Vital Signs 11/10/17 09:58 11/10/17 10:21 11/10/17 10:50 Temperature 97.4 F L 98.6 F Pulse Rate 84 63 80 Respiratory Rate 22 18 Blood Pressure 127/88 180/115 H Pulse Oximetry 100 100 96 11/10/17 11:25 11/10/17 12:50 11/10/17 13:08 Temperature Pulse Rate 67 Respiratory Rate 16 18 10 L Blood Pressure 162/80 H Pulse Oximetry 98 11/10/17 13:38 11/10/17 14:22 11/10/17 18:00 Temperature Pulse Rate 86 Respiratory Rate 16 16 Blood Pressure Pulse Oximetry 11/10/17 19:18 11/10/17 19:29 11/10/17 20:00 Temperature 97.5 F L Pulse Rate 61 78 Respiratory Rate 16 20 18 Blood Pressure 139/86 144/87 H Pulse Oximetry 100 99 11/10/17 21:00 11/10/17 22:00 11/10/17 23:00 Temperature Pulse Rate 60 58 L 62 Respiratory Rate Blood Pressure Pulse Oximetry 11/11/17 00:00 11/11/17 01:00 11/11/17 02:00 Temperature 97.9 F Pulse Rate 74 58 L 60 Respiratory Rate 18 Blood Pressure 129/73 Pulse Oximetry 98 11/11/17 03:00 11/11/17 04:00 11/11/17 05:00 Temperature 97.9 F Pulse Rate 56 L 59 L 66 Respiratory Rate 18 Blood Pressure 140/78 Pulse Oximetry 98 11/11/17 05:49 Temperature Pulse Rate 60 Respiratory Rate Blood Pressure Pulse Oximetry Intake & Output 11/10/17 11/11/17 11/11/17 18:59 06:59 18:59 Intake Total 1840 / 1840 Balance 1840 / 1840 Weight 56.699 kg 57.2 kg Intake: IV 1000 / 1000 NS Inj 1,000 ML @ 100 mls/hr IV 1000 / 1000 .CONT .Q10H [facility] Rx#:[id number] Oral 840 / 840 Other: # Voids 4 Date of Last Bowel Movement 11/10/17 - Constitutional no acute distress, thin, chronically ill appearing, cooperative - Routine HEENT Exam Head: Present: normocephalic, atraumatic Eye: Present: EOMI ENT: Present: mucous membranes dry, oropharynx clear, nares patent, external ear normal - Routine Neck Exam Present: lymphadenopathy, trachea midline Comments: 2 visual examination of the right neck at the previously noted mass has significantly decreased in size. To palpation this area is nontender, to palpation the mass now measuring about 2 cm in diameter. - Routine Respiratory Exam Present: decreased breath sounds Comments: Lungs are clear to auscultation bilaterally. - Routine Cardiovascular Exam Comments: Heart is regular in rate and rhythm with no murmurs - Routine Abdominal Exam Present: soft - Routine Extremities Exam Comments: No lower extremity edema detected - Routine Skin Exam Present: intact, dry - Routine Neurological Exam Present: alert, oriented X3, moving all extremities, normal speech - Routine Psychiatric Exam Present: normal affect, normal thought process, cooperative, good insight, good judgment Assessment and Plan - Assessment (1) Squamous cell carcinoma of pharynx Code(s): C14.0 - Malignant neoplasm of pharynx, unspecified Status: Chronic - Plan Assessment: 62-year-old white male with diagnosis of muscle carcinoma of the right neck. Patient being evaluated for continuation of care Plan: Case has been discussed with Dr. Pena. Patient looks much better and will be able to continue his radiation therapy. He has 4 treatments left. Will proceed forward for treatments today as discussed. Patient advised if I could be of any further assistance or to please let me know otherwise we will proceed as above. Patient may get chemotherapy while in the hospital. Discussed Condition With: Dr. Sepulveda
--- NOTE | 2017-11-11 09:02 | P.HPFP ---
History of Present Illness Primary Care Physician: Mateo Pena MD Chief Complaint: "I am so weak I cannot walk ". History of Present Illness: Mr. Beard is a 62-year-old white male with a past medical history of squamous cell carcinoma of the pharynx presenting to the ED with chest pain. He states that this pain started last night. He describes it as a 10/10 stabbing pain and pressure in his left chest and radiating down his left arm. It is worse with movement, better with laying down and with a dose of nitroglycerin. He also had associated shortness of breath. He has a history of [place] and states that this is the same pain that he had before. He is also had recent stress with his family and from his cancer. He has had issues with his nutrition and has lost more weight. He states that he has been vomiting all his food and tube feeds. His cancer is currently managed by Dr. Pena. Patient is unsure of whether he wants to continue with therapy and would like to discuss hospice options. - Diagnosis (1) Chest pain (2) Squamous cell carcinoma of pharynx (3) Anemia (4) Chronic kidney disease (5) Hypertension (6) Nutrition, metabolism, and development symptoms (7) DVT prophylaxis PMFSH - History History Provided By: Patient - Medical History Medical History: Medical History (Last Updated 11/11/17 @ 07:48 by Mateo Pena MD) Adult failure to thrive Anxiety Chronic renal failure, stage 3 (moderate) Hepatitis C MRSA (methicillin resistant Staphylococcus aureus) infection Posttraumatic stress disorder Prostate carcinoma Protein calorie malnutrition Squamous cell carcinoma of base of tongue HBP (high blood pressure) Head and neck cancer - Surgical History Surgical History: Surgical History (Last Reviewed 11/10/17 @ 12:54 by Jalyn Keane DO) H/O neck surgery History of eye surgery History of knee surgery PEG (percutaneous endoscopic gastrostomy) status - Family History Family History: Family History (Last Reviewed 11/10/17 @ 16:15 by Jv Cruz MD) Mother Respiratory failure - Tobacco History Second Hand Smoke Exposure: No Tobacco Use In Past 30 Days: No Smoking Status: Former smoker Tobacco Type: Cigarettes - Alcohol History How Often Do You Have a Drink Containing Alcohol: Never - Substance Use History Substance History: No History of Abuse - Travel History Recent Travel in the [facility] Within the Last 8 Weeks: No Recent Travel Out of the Country Within the Last 8 Weeks: No - Immunization History Tetanus Immunization: Unable to Assess Hx Influenza Vaccine This Season: No Medications and Allergies Active Medications: Active Medications Acetaminophen (Tylenol) 650 mg PO Q4H PRN PRN Reason: Temp > 100.4 Heparin Sodium (Porcine) (Heparin Inj) 5,000 units SQ Q12HR [facility] Last Admin: 11/11/17 08:30 Dose: 5,000 units Hydralazine HCl (Apresoline) 50 mg PO Q8HR [facility] Last Admin: 11/11/17 06:13 Dose: 50 mg Hydromorphone HCl (Dilaudid) 8 mg PO Q4HR [facility] Last Admin: 11/11/17 08:30 Dose: 8 mg Hydromorphone HCl (Dilaudid Pf Inj) 1 mg IV.PUSH Q3H PRN PRN Reason: BREAKTHROUGH PAIN Last Admin: 11/11/17 06:14 Dose: 1 mg Sodium Chloride (Ns Inj) 1,000 mls @ 100 mls/hr IV.CONT .Q10H [facility] Last Admin: 11/11/17 06:13 Dose: 100 mls/hr Isosorbide Mononitrate (Imdur) 30 mg PO DAILY@0700 [facility] Last Admin: 11/11/17 06:13 Dose: 30 mg Lisinopril (Prinivil) 10 mg PO DAILY [facility] Last Admin: 11/11/17 08:29 Dose: 10 mg Naloxone HCl (Narcan Inj) 0.4 mg IV.PUSH UNSCH PRN PRN Reason: SEE LABEL COMMENTS Nifedipine (Procardia Xl) 60 mg PO Q12HR [facility] Last Admin: 11/11/17 08:29 Dose: 60 mg Ondansetron HCl (Zofran Inj) 4 mg IV.PUSH Q6H PRN PRN Reason: NAUSEA OR VOMITING Senna/Docusate Sodium (Mary Lou-Colace) 1 tab PO BID [facility] Last Admin: 11/11/17 08:29 Dose: 1 tab Sodium Chloride (Ns Flush) 2 ml IV.FLUSH UNSCH PRN PRN Reason: FLUSH AFTER USING IV ACCESS Temazepam (Restoril) 15 mg PO HS PRN PRN Reason: INSOMNIA Allergies Allergy/AdvReac Type Severity Reaction Status Date / Time simvastatin AdvReac Severe Joint Pain Verified 11/10/17 10:14 Exam Vital signs: Vital Signs 11/10/17 09:58 11/10/17 10:21 11/10/17 10:50 Temperature 97.4 F L 98.6 F Pulse Rate 84 63 80 Respiratory Rate 22 18 Blood Pressure 127/88 180/115 H Pulse Oximetry 100 100 96 11/10/17 11:25 11/10/17 12:50 11/10/17 13:08 Temperature Pulse Rate 67 Respiratory Rate 16 18 10 L Blood Pressure 162/80 H Pulse Oximetry 98 11/10/17 13:38 11/10/17 14:22 11/10/17 18:00 Temperature Pulse Rate 86 Respiratory Rate 16 16 Blood Pressure Pulse Oximetry 11/10/17 19:18 11/10/17 19:29 11/10/17 20:00 Temperature 97.5 F L Pulse Rate 61 78 Respiratory Rate 16 20 18 Blood Pressure 139/86 144/87 H Pulse Oximetry 100 99 11/10/17 21:00 11/10/17 22:00 11/10/17 23:00 Temperature Pulse Rate 60 58 L 62 Respiratory Rate Blood Pressure Pulse Oximetry 11/11/17 00:00 11/11/17 01:00 11/11/17 02:00 Temperature 97.9 F Pulse Rate 74 58 L 60 Respiratory Rate 18 Blood Pressure 129/73 Pulse Oximetry 98 11/11/17 03:00 11/11/17 04:00 11/11/17 05:00 Temperature 97.9 F Pulse Rate 56 L 59 L 66 Respiratory Rate 18 Blood Pressure 140/78 Pulse Oximetry 98 11/11/17 05:49 Temperature Pulse Rate 60 Respiratory Rate Blood Pressure Pulse Oximetry Intake & Output 11/10/17 11/11/17 11/11/17 18:59 06:59 18:59 Intake Total 1840 / 1840 Balance 1840 / 1840 Weight 56.699 kg 57.2 kg Intake: IV 1000 / 1000 NS Inj 1,000 ML @ 100 mls/hr IV 1000 / 1000 .CONT .Q10H [facility] Rx#:[id number] Oral 840 / 840 Other: # Voids 4 Date of Last Bowel Movement 11/10/17 Results - Labs Result diagrams: 11/11/17 06:18 11/11/17 06:18 Abnormal lab results 11/10/17 11/10/17 11/10/17 Range/Units 10:54 10:54 10:54 RBC 3.18 L (4.50-5.90) mil/mm3 Hgb 9.7 L (13.0-17.0) gm/dL Hct 28.4 L (39.0-51.0) % RDW 19.4 H (11.6-17.2) % MPV 6.9 L (7.0-11.0) fL Neut % (Auto) 82.2 H (16.0-70.0) % Lymph % (Auto) 6.3 L (9.0-44.0) % [place] % (Auto) 10.1 H (0.0-8.0) % Lymph # (Auto) 0.3 L (1.0-4.8) th/mm3 Chloride 109 H (98-107) meq/L BUN 31 H (7-18) mg/dL Creatinine 2.67 H (0.60-1.30) mg/dL Estimated GFR 25 L (>89) mL/min Calcium (8.5-10.1) mg/dL Troponin I Less than 0.02 L (0.02-0.05) ng/mL B-Natriuretic Peptide 305 H (0-100) pg/mL Total Protein (6.4-8.2) g/dL Albumin (3.4-5.0) g/dL Urine Clarity (Clear) Urine Mucus (Occasional) /lpf 11/10/17 11/10/17 11/11/17 Range/Units 16:00 18:48 00:30 RBC (4.50-5.90) mil/mm3 Hgb (13.0-17.0) gm/dL Hct (39.0-51.0) % RDW (11.6-17.2) % MPV (7.0-11.0) fL Neut % (Auto) (16.0-70.0) % Lymph % (Auto) (9.0-44.0) % [place] % (Auto) (0.0-8.0) % Lymph # (Auto) (1.0-4.8) th/mm3 Chloride (98-107) meq/L BUN (7-18) mg/dL Creatinine (0.60-1.30) mg/dL Estimated GFR (>89) mL/min Calcium (8.5-10.1) mg/dL Troponin I Less than 0.02 L Less than 0.02 L (0.02-0.05) ng/mL B-Natriuretic Peptide (0-100) pg/mL Total Protein (6.4-8.2) g/dL Albumin (3.4-5.0) g/dL Urine Clarity Cloudy H (Clear) Urine Mucus Few H (Occasional) /lpf 11/11/17 11/11/17 Range/Units 06:18 06:18 RBC 2.62 L (4.50-5.90) mil/mm3 Hgb 8.0 L (13.0-17.0) gm/dL Hct 23.3 L (39.0-51.0) % RDW 19.1 H (11.6-17.2) % MPV 6.9 L (7.0-11.0) fL Neut % (Auto) 78.3 H (16.0-70.0) % Lymph % (Auto) 8.4 L (9.0-44.0) % [place] % (Auto) 11.3 H (0.0-8.0) % Lymph # (Auto) 0.4 L (1.0-4.8) th/mm3 Chloride (98-107) meq/L BUN 34 H (7-18) mg/dL Creatinine 2.40 H (0.60-1.30) mg/dL Estimated GFR 28 L (>89) mL/min Calcium 7.9 L (8.5-10.1) mg/dL Troponin I (0.02-0.05) ng/mL B-Natriuretic Peptide (0-100) pg/mL Total Protein 6.3 L (6.4-8.2) g/dL Albumin 2.6 L (3.4-5.0) g/dL Urine Clarity (Clear) Urine Mucus (Occasional) /lpf Short CBC 11/10/17 11/11/17 Range/Units 10:54 06:18 WBC 5.4 4.8 (4.0-11.0) th/mm3 Hgb 9.7 L 8.0 L (13.0-17.0) gm/dL Hct 28.4 L 23.3 L (39.0-51.0) % Plt Count 198 D 160 (150-450) th/mm3 BMP 11/10/17 11/11/17 10:54 06:18 Sodium 143 141 Potassium 3.8 3.6 Chloride 109 H 107 Carbon Dioxide 26.4 27.9 BUN 31 H 34 H Creatinine 2.67 H 2.40 H Calcium 8.6 7.9 L Cardiac Enzymes 11/10/17 11/10/17 11/11/17 Range/Units 10:54 18:48 00:30 Troponin I Less than 0.02 L Less than 0.02 L Less than 0.02 L (0.02-0.05) ng/mL Liver Function 11/11/17 Range/Units 06:18 Total Bilirubin 0.2 (0.2-1.0) mg/dL AST 31 (15-37) U/L ALT 36 (12-78) U/L Alkaline Phosphatase 99 (45-117) U/L Albumin 2.6 L (3.4-5.0) g/dL Urine 11/10/17 Range/Units 16:00 Urine Color Yellow (Yellw/Straw) Urine Clarity Cloudy H (Clear) Urine pH 5.0 (5.0-8.5) Ur Specific [place] 1.015 (1.002-1.035) Urine Protein Negative (Neg-Trace) mg/dL Urine Glucose (UA) 500 or greater (Negative) mg/dL - Imaging Impressions Chest X-Ray 11/10/17 10:50 CONCLUSION: 1. No acute abnormality or significant interval change. Caprini VTE Risk Assessment Caprini VTE Risk Assessment: Moderate/High Risk (score >= 2) Caprini Risk Assessment Model: Point Value = 1 Point Value = 2 Point Value = 3 Point Value = 5 Age 41-60 Minor surgery BMI > 25 kg/m2 Swollen legs Varicose veins or History of unexplained or recurrent spontaneous Oral contraceptives or hormone replacement Sepsis (< 1 month) Serious lung disease, including pneumonia (< 1 month) Abnormal pulmonary function Acute myocardial infarction Congestive heart failure (< 1 month) History of inflammatory bowel disease Medical patient at bed rest Age 61-74 Arthroscopic surgery Major open surgery (> 45 min) Laparoscopic surgery (> 45 min) Malignancy Confined to bed (> 72 hours) Immobilizing plaster cast Central venous access Age >= 75 History of VTE Family history of VTE Factor V Leiden Prothrombin [id number] Lupus anticoagulant Anticardiolipin antibodies Elevated serum homocysteine Heparin-induced thrombocytopenia Other congenital or acquired thrombophilia Stroke (< 1 month) Elective arthroplasty Hip, pelvis, or leg fracture Acute spinal cord injury (< 1 month) Prophylaxis Regimen: Total Risk Factor Score Risk Level Prophylaxis Regimen 0-1 Low Early ambulation 2 Moderate Order ONE of the following: *Sequential Compression Device (SCD) *Heparin 5000 units SQ BID 3-4 Higher Order ONE of the following medications: *Heparin 5000 units SQ TID *Enoxaparin/Lovenox 40 mg SQ daily (WT < 150 kg, CrCl > 30 mL/min) *Enoxaparin/Lovenox 30 mg SQ daily (WT < 150 kg, CrCl > 10-29 mL/min) *Enoxaparin/Lovenox 30 mg SQ BID (WT < 150 kg, CrCl > 30 mL/min) AND/OR *Sequential Compression Device (SCD) 5 or more Highest Order ONE of the following medications: *Heparin 5000 units SQ TID (Preferred with Epidurals) *Enoxaparin/Lovenox 40 mg SQ daily (WT < 150 kg, CrCl > 30 mL/min) *Enoxaparin/Lovenox 30 mg SQ daily (WT < 150 kg, CrCl > 10-29 mL/min) *Enoxaparin/Lovenox 30 mg SQ BID (WT < 150 kg, CrCl > 30 mL/min) AND *Sequential Compression Device (SCD) Assessment and Plan - Assessment (1) Chest pain Code(s): R07.9 - Chest pain, unspecified Status: Acute Plan: Patient presenting with chest pain that is similar to eyes in the past. Troponin on admission is negative. Will conduct ACS rule out. EKG on admission is similar to last EKG on 09/02 showing sinus rhythm with RBBB CXR on admission shows no acute abnormality or significant interval change Trend troponins 3 with corresponding EKGs Aspirin 325 mg given in ED Nitropaste (2) Squamous cell carcinoma of pharynx Code(s): C14.0 - Malignant neoplasm of pharynx, unspecified Status: Chronic Plan: Diagnosed and Started on Chemotherapy in June 2017. Treated by Dr. Pena of Heme Onc and Dr. Martinez of Radiation Oncology. Consult oncology, appreciate recommendations Consult palliative care due to being interested in hospice care, appreciate recommendations Resume at home pain regimen, can adjust as needed -Dilaudid 8 mg p.o. 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 Appears to be normocytic in nature due to MCV of 89.2. Will continue to monitor trend and will transfuse if falls below 8. (4) Chronic kidney disease Code(s): N18.9 - Chronic kidney disease, unspecified Status: Chronic Plan: Creatinine on admission is 2.67. Last creatinine recorded on 10/26 was 2.19. Disease may be worsening or may be an acute issue. Continue to monitor through BMPs Renally dose medications Avoid nephrotoxic medications (5) Hypertension Code(s): I10 - Essential (primary) hypertension Status: Chronic Plan: Continue at home medications -hydralazine 50 mg p.o. every 8 hours -Isosorbide mononitrate 30 mg p.o. daily -Lisinopril 10 mg p.o. daily -Nifedipine 60 mg p.o. every 12 hours (6) Nutrition, metabolism, and development symptoms Code(s): R63.8 - Other symptoms and signs concerning food and fluid intake Status: Acute Plan: Fluids: tolerating PO Electrolytes: monitor and replete as needed Nutrition: Tube feeding with try, dietary consulted Zofran IV for nausea (7) DVT prophylaxis Status: Acute Plan: DVT Prophylaxis: Early ambulation. 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 Admitted to observation for ACS rule out. H&P: Quality - VTE Deep Vein Thrombosis/Pulmonary Embolism Present on Admission: No (3) Anemia Qualifiers: Anemia type: unspecified type Qualified Code(s): D64.9 - Anemia, unspecified (4) Chronic kidney disease Qualifiers: Chronic kidney disease stage: stage 4 (severe) Qualified Code(s): N18.4 - Chronic kidney disease, stage 4 (severe) (5) Hypertension Qualifiers: Hypertension type: essential hypertension Qualified Code(s): I10 - Essential (primary) hypertension
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
--- NOTE | 2017-11-11 12:11 | P.DIET ---
Nutritional Evaluation Type of nutrition evaluation: initial Nutrition consult regarding: Tube Feeding (MDC for Tube Feeding) Subjective Subjective Comments: Pt confirmed his ht is 71in. States he believes he is 115#, not 125# as documented in the EMR. Pt voluntarily showed me his arms, stomach, and back to show me his muscle wasting. Prior to admission, he states he was having N/V. He c/o depression like symptoms and he was not eating 2/2 this. He admits that he currently still feels depressed, but doesn't want to so he's been eating. Denies N/V/D/C currently. He has upper dentures but not lower dentures, so this causes issues w/ chewing food. He c/o trouble swallowing 2/2 XRT saying his throat constantly feels dry and sore. 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 Today he says he's eaten an egg & sausage McMuffin, 1 strawberry Ensure, eggs, barrientos, and a biscuit. He feels hungry and is not having issues w/ his appetite currently per pt. Was only giving himself 2 boluses daily when at home and he was not eating prior to admission. Objective - Diagnosis Chest Pain, SELIN, Intactable Pain - Objective % IBW: 73 (MWU=482#) Body Weight Used for Calculations: IBW (78.2kg) Energy Needs - Lower Range (kCal/kg): 30 Energy Needs - Upper Range (kCal/kg): 35 Lower Limit kCal/kg (kCals): 2,346 Upper Limit kCal/kg (kCals): 2,737 Lower Limit Protein Factor (Grams per Kg): 1.2 Upper Limit Protein Factor (Grams per Kg): 1.5 Lower Protein Needs (Protein): 94 Upper Protein Needs (Protein): 117 Dietitian Reviewed in Medical Record: Current diet, Curent medications, Intake & Output, Labs, Medical history, Tube feeding Diet Order: TF w/ Tray, Regular Objective Comments: Labs: BUN 34, sea air land officer 2.40, eGFR 28 LBM 11/10 4 XRT left, plus chemo per review of EMR Feeding - Current Tube Feeding Tube Feeding Product: Two Khalif HN Tube Feeding Method: Pump Tube Feeding Rate: 70 (6pm-8am) Tube Feeding Route: gastrostomy Current kCals Provided by Tube Feedin,960 (84% lower end kcal needs) Current Protein Provided by Tube Feeding (gPRO): 82 (87% lower end PRO needs) Current Free H2O Provided (m/l): 686 - Current PO Supplement Current Supplement: Ensure Original Current Frequency of Supplement: Three times a day Current kCals Provided by Supplement: 250 Current Protein Provided by Supplement: 9 Assessment Assessment: Pt admitted for chest pain, SELIN, and intractable pain. 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 Currently undergoing XRT w/ 4 treatments left and last weekly dose of chemo per Oncology. Pt was tolerating his TFs at home, but was not providing himself w/ enough nutrition. Current TF is providing 84% of his lower end calorie needs and 87% of his lower end PRO needs. This is appropriate as pt was seen eating 100% of his meal this morning plus an Ensure. He is requesting Ensure TID, whole milk x2 TID, and orange sherbet TID (for soothing his throat). He does tell me that he feels depressed and this affects his appetite/desire to feed himself (PO and via PEG). Continue Regular diet w/ nocturnal TFings. Dietitian following. Recommendations: 1. Continue TwoCal HN @ 70mls/hr x 14hrs (6pm-8am). 2. Continue Regular diet. 3. Ensure TID, whole milk x2 TID, and orange sherbet TID per pt preference. Dietitian to Monitor: Lab values, Supplement acceptance, Intake & Output, Diet tolerance, Tube feeding tolerance, Weight change, Residuals, PO Intake, Medical course
--- NOTE | 2017-11-11 12:55 | ECG ---
Date Performed: 11/10/2017 Time Performed: 18:55:56 PTAGE: 62 years EKG: ECTOPIC ATRIAL PACER INDETERMINATE AXIS RIGHT BUNDLE BRANCH BLOCK ABNORMAL ECG Compared to PREVIOUS TRACING , ectopic atrial pacer is new. PREVIOUS TRACIN11/10/2017 10.28 DOCTOR: Eleazar Irving Interpretating Date/Time 11/11/2017 12:53:20
--- NOTE | 2017-11-11 12:55 | ECG ---
Date Performed: 11/10/2017 Time Performed: 22:48:08 PTAGE: 62 years EKG: Sinus rhythm Right bundle branch block Possible septal infarct - age undetermined Inferior/lateral ST-T changes a re nonspecific Abnormal ECG Compared to PREVIOUS TRACING , sinus rhythm has replaced ectopic atrial pacer. PREVIOUS TRACIN10/27 18.55 DOCTOR: Eleazar Irving Interpretating Date/Time 11/11/2017 12:53:53
[2017-11-12] MEDS: HYDROmorphone PF Inj 2 MG/ML Vial IV.PUSH PRN ×6 (02:10→22:45)
[2017-11-12] MEDS: Sod Chloride 0.9% Inj 1,000 ML IV.CONT SCH ×2 (02:55→16:50)
[2017-11-12 05:39] LABS: Baso % (Auto) 0.6 % (0.0-2.0); Eos # (Auto) 0.1 th/mm3 (0.0-0.4); Eos % (Auto) 1.3 % (0.0-4.0); Hematocrit 25.9 % (39.0-51.0); Hemoglobin 8.7 gm/dL (13.0-17.0); Lymph # (Auto) 0.4 th/mm3 (1.0-4.8); Lymph % (Auto) 5.6 % (9.0-44.0); Mean Corpuscular HGB Conc 33.8 % (32.0-36.0); Mean Corpuscular Hemoglobin 30.6 pg (27.0-34.0); Mean Corpuscular Volume 90.5 fL (80.0-100.0); Mean Platelet Volume 6.7 fL (7.0-11.0); Mono # (Auto) 0.7 th/mm3 (0.0-0.9); Mono % (Auto) 10.3 % (0.0-8.0); Neut # (Auto) 5.3 th/mm3 (1.8-7.7); Neut % (Auto) 82.2 % (16.0-70.0); Platelet Count 160 th/mm3 (150-450); Red Blood Count 2.86 mil/mm3 (4.50-5.90); Red Cell Distribution Width 19.3 % (11.6-17.2); White Blood Count 6.5 th/mm3 (4.0-11.0)
[2017-11-12 06:03] LABS: Calcium 8.4 mg/dL (8.5-10.1); Carbon Dioxide 29.2 meq/L (21.0-32.0); Potassium 4.5 meq/L (3.5-5.1)
[2017-11-12] MEDS: hydrALAZINE 50 MG Tablet PO SCH ×3 (06:04→22:49)
[2017-11-12] MEDS: Isosorbide Mononitrate 30 MG ER 24HR Tablet (Imdur) PO SCH (06:27)
[2017-11-12] MEDS: Lisinopril 10 MG Tablet PO SCH (08:25)
[2017-11-12] MEDS: Heparin - SQ 10,000 UNITS/ML Vial SQ SCH ×2 (08:25→22:49)
[2017-11-12] MEDS: Senna/Docusate Sodium 8.6/50 MG Tablet PO SCH ×2 (08:26→23:00)
--- NOTE | 2017-11-12 10:47 | P.PNONC ---
Subjective Interval history: Afebrile Patient seen and examined while he is awaiting to go for radiation No specific complaints Discussed with him the plan to give chemotherapy today and he agrees Objective Vital Signs/Intake & Output: Vital Signs 11/11/17 11:56 11/11/17 11:58 11/11/17 12:00 Temperature Pulse Rate 56 L Respiratory Rate 18 18 Blood Pressure Pulse Oximetry 11/11/17 15:01 11/11/17 16:00 11/11/17 16:23 Temperature 97.8 F Pulse Rate 60 Respiratory Rate 18 18 18 Blood Pressure Pulse Oximetry 11/11/17 18:38 11/11/17 19:00 11/11/17 20:00 Temperature 98.1 F Pulse Rate 90 90 Respiratory Rate 18 16 Blood Pressure 159/84 H Pulse Oximetry 94 L 11/12/17 00:00 11/12/17 04:00 11/12/17 08:54 Temperature 97.4 F L 98.1 F Pulse Rate 56 L 63 Respiratory Rate 18 18 20 Blood Pressure 157/96 H 163/80 H Pulse Oximetry 99 98 Intake & Output 11/11/17 11/12/17 11/12/17 18:59 06:59 18:59 Intake Total 1000 / 1000 1720 / 1720 Output Total 400 / 400 Balance 600 / 600 1720 / 1720 Weight 131 lb 2.801 oz 127 lb 4.8 oz Intake: IV 1000 / 1000 1000 / 1000 NS Inj 1,000 ML @ 100 mls/hr IV 1000 / 1000 1000 / 1000 .CONT .Q10H TONY Rx#:[id number] Oral 720 / 720 Output: Emesis 400 / 400 Other: # Voids 4 Date of Last Bowel Movement 11/10/17 # Emeses 1 Result Diagrams: 11/12/17 05:00 11/12/17 05:00 Laboratory Results: Laboratory Results - last 24 hr 11/12/17 11/12/17 05:00 05:00 WBC 6.5 RBC 2.86 L Hgb 8.7 L Hct 25.9 L MCV 90.5 MCH 30.6 MCHC 33.8 RDW 19.3 H Plt Count 160 MPV 6.7 L Neut % (Auto) 82.2 H Lymph % (Auto) 5.6 L [place] % (Auto) 10.3 H Eos % (Auto) 1.3 Baso % (Auto) 0.6 Neut # (Auto) 5.3 Lymph # (Auto) 0.4 L [place] # (Auto) 0.7 Eos # (Auto) 0.1 Baso # (Auto) 0.0 WBC Differential . Differential Comment Auto diff final Sodium 142 Potassium 4.5 D Chloride 107 Carbon Dioxide 29.2 Anion Gap 6 BUN 27 H Creatinine 2.21 H Estimated GFR 31 L Random Glucose 82 Calcium 8.4 L Medications: Active Medications Generic Name Dose Route Start Last Admin Trade Name Freq PRN Reason Stop Dose Admin Heparin Sodium (Porcine) 5,000 units 11/10/17 21:00 11/12/17 08:25 Heparin Inj SQ 5,000 units Q12HR TONY Administration Hydralazine HCl 50 mg 11/10/17 14:00 11/12/17 06:04 Apresoline PO 50 mg Q8HR TONY Administration Hydromorphone HCl 8 mg 11/10/17 14:00 11/12/17 08:25 Dilaudid PO 8 mg Q4HR TONY Administration Hydromorphone HCl 1 mg 11/10/17 13:40 11/12/17 10:12 Dilaudid Pf Inj IV.PUSH 1 mg Q3H PRN Administration BREAKTHROUGH PAIN Sodium Chloride 1,000 mls @ 100 mls/hr 11/10/17 20:00 11/12/17 02:55 Ns Inj IV.CONT 100 mls/hr .Q10H TONY Administration Isosorbide Mononitrate 30 mg 11/11/17 07:00 11/12/17 06:27 Imdur PO 30 mg DAILY@0700 TONY Administration Lisinopril 10 mg 11/10/17 13:45 11/12/17 08:25 Prinivil PO 10 mg DAILY TONY Administration Nifedipine 60 mg 11/10/17 13:45 11/12/17 08:25 Procardia Xl PO 60 mg Q12HR TONY Administration Ondansetron HCl 4 mg 11/10/17 13:30 11/11/17 14:59 Zofran Inj IV.PUSH 4 mg Q6H PRN Administration NAUSEA OR VOMITING Senna/Docusate Sodium 1 tab 11/10/17 21:00 11/12/17 08:26 Mary Lou-Colace PO Not Given BID [facility] Objective Remarks: GENERAL: Older malnourished appearing male standing at bedside complaining of the need to urinate. SKIN: Warm and dry. HEAD: Normocephalic. EYES: No injection or drainage. NECK: Supple, trachea midline. Radiation changes noted CARDIOVASCULAR: Regular rate and rhythm without murmurs. RESPIRATORY: Clear but diminished posteriorly. GASTROINTESTINAL: Abdomen soft, non-tender, nondistended. EXTREMITIES: No cyanosis, or edema. MUSCULOSKELETAL: Diminished muscle tone. NEUROLOGICAL: No obvious focal deficit. Awake, alert, and oriented x3. 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 Unfortunately he has had multiple hospitalizations due to malnourishment and failure to thrive which has resulted in suboptimal treatment dosing. He was admitted with complaints of chest pain. Acute coronary syndrome has been ruled out by attending 1. The patient is due to continue with radiation treatments today. His last radiation is scheduled for November 16. His last chemotherapy was given on October 26 and ideally this is given weekly. As the patient is feeling better and counts are stable we will initiate another cycle of chemotherapy today with carboplatin and paclitaxel. 2. I have discussed with the patient's attending and there is apparently a new rule regarding Medicare with replacement back into half-way facility. Ideally would like to keep him in the hospital until he finishes radiation; however if patient is discharged we will see him back in the clinic for follow- up. He will need to continue radiation treatments per Dr. Martinez. 3. Continue IV fluids. Attempt to optimize nutrition.
--- NOTE | 2017-11-12 11:23 | P.PNFP ---
Subjective Interval history: Patient seen and examined this morning. He states that he is doing ok. Still feeling weak and unsteady on his feet due to the cancer and weight loss. He had vomiting overnight after eating. His pain is well- controlled. No fever/chills, no chest pain, no shortness of breath. <Nora Boateng - 11/12/17 14:34> Results - Labs Result diagrams: 11/13/17 04:33 11/13/17 04:33 <Nalini Becerra - 11/15/17 11:51> Abnormal lab results 11/12/17 11/12/17 Range/Units 05:00 05:00 RBC 2.86 L (4.50-5.90) mil/mm3 Hgb 8.7 L (13.0-17.0) gm/dL Hct 25.9 L (39.0-51.0) % RDW 19.3 H (11.6-17.2) % MPV 6.7 L (7.0-11.0) fL Neut % (Auto) 82.2 H (16.0-70.0) % Lymph % (Auto) 5.6 L (9.0-44.0) % [place] % (Auto) 10.3 H (0.0-8.0) % Lymph # (Auto) 0.4 L (1.0-4.8) th/mm3 BUN 27 H (7-18) mg/dL Creatinine 2.21 H (0.60-1.30) mg/dL Estimated GFR 31 L (>89) mL/min Calcium 8.4 L (8.5-10.1) mg/dL Short CBC 11/12/17 Range/Units 05:00 WBC 6.5 (4.0-11.0) th/mm3 Hgb 8.7 L (13.0-17.0) gm/dL Hct 25.9 L (39.0-51.0) % Plt Count 160 (150-450) th/mm3 BMP 11/12/17 05:00 Sodium 142 Potassium 4.5 D Chloride 107 Carbon Dioxide 29.2 BUN 27 H Creatinine 2.21 H Calcium 8.4 L <Nora Boateng - 11/12/17 11:23> Physical Exam Vital signs: Vital Signs 11/11/17 11:56 11/11/17 11:58 11/11/17 12:00 Temperature Pulse Rate 56 L Respiratory Rate 18 18 Blood Pressure Pulse Oximetry 11/11/17 15:01 11/11/17 16:00 11/11/17 16:23 Temperature 97.8 F Pulse Rate 60 Respiratory Rate 18 18 18 Blood Pressure Pulse Oximetry 11/11/17 18:38 11/11/17 19:00 11/11/17 20:00 Temperature 98.1 F Pulse Rate 90 90 Respiratory Rate 18 16 Blood Pressure 159/84 H Pulse Oximetry 94 L 11/12/17 00:00 11/12/17 04:00 11/12/17 08:54 Temperature 97.4 F L 98.1 F Pulse Rate 56 L 63 Respiratory Rate 18 18 20 Blood Pressure 157/96 H 163/80 H Pulse Oximetry 99 98 Intake & Output 11/11/17 11/12/17 11/12/17 18:59 06:59 18:59 Intake Total 1000 / 1000 1720 / 1720 Output Total 400 / 400 Balance 600 / 600 1720 / 1720 Weight 59.5 kg 57.742 kg Intake: IV 1000 / 1000 1000 / 1000 NS Inj 1,000 ML @ 100 mls/hr IV 1000 / 1000 1000 / 1000 .CONT .Q10H [facility] Rx#:[id number] Oral 720 / 720 Output: Emesis 400 / 400 Other: # Voids 4 Date of Last Bowel Movement 11/10/17 # Emeses 1 <Nora Boateng G - 11/12/17 11:23> Narrative: GENERAL: cachetic white male laying in bed, in no acute distress SKIN: Warm and dry. HEAD: Atraumatic. Normocephalic. EYES: Pupils equal and round. No scleral icterus. No injection or drainage. ENT: No nasal bleeding or discharge. Mucous membranes pink and moist. Edentulous. 2x2cm nontender mass at right neck. NECK: Trachea midline. No JVD. CARDIOVASCULAR: Regular rate and rhythm. RESPIRATORY: No accessory muscle use. Clear to auscultation. Breath sounds equal bilaterally. GASTROINTESTINAL: Abdomen soft, non-tender, nondistended. Hepatic and splenic margins not palpable. G tube in place, no signs of infection. MUSCULOSKELETAL: Extremities without clubbing, cyanosis, or edema. No obvious deformities. NEUROLOGICAL: Awake and alert. No obvious cranial nerve deficits. Motor grossly within normal limits. Normal speech. <Nora Boateng - 11/12/17 14:34> Assessment and Plan - Assessment (1) Squamous cell carcinoma of pharynx Code(s): C14.0 - Malignant neoplasm of pharynx, unspecified Status: Chronic Plan: Diagnosed and Started on Chemotherapy in June 2017. Treated by Dr. Pena of Heme Onc and Dr. Martinez of Radiation Oncology. Consult oncology, appreciate recommendations -Weekly chemotherapy with carboplatin and paclitaxel. -Next cycle today Consult radiation onc, appreciate recommendations -Due for 4 more treatments. -Will resume radiation therapy today Consult palliative care due to being interested in hospice care, appreciate recommendations Resume at home pain regimen, can adjust as needed -Dilaudid 8 mg p.o. every 4 hours scheduled -Dilaudid 1 mg IV every 3 hours as needed for breakthrough pain (2) Chest pain Code(s): R07.9 - Chest pain, unspecified Status: Acute Plan: Patient presenting with chest pain that is similar to [place] in the past. Troponin on admission is negative. ACS has been ruled out. 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 Appears to be normocytic in nature due to MCV of 89.2. Will continue to monitor trend and will transfuse if falls below 8. (4) Chronic kidney disease Code(s): N18.9 - Chronic kidney disease, unspecified Status: Chronic Plan: Creatinine on admission is 2.67. Last creatinine recorded on 10/26 was 2.19. Disease may be worsening or may be an acute issue. Cr is now improving. Continue to monitor through BMPs Renally dose medications Avoid nephrotoxic medications (5) Hypertension Code(s): I10 - Essential (primary) hypertension Status: Chronic Plan: Continue at home medications -hydralazine 50 mg p.o. every 8 hours -Isosorbide mononitrate 30 mg p.o. daily -Lisinopril 10 mg p.o. daily -Nifedipine 60 mg p.o. every 12 hours (6) Nutrition, metabolism, and development symptoms Code(s): R63.8 - Other symptoms and signs concerning food and fluid intake Status: Acute Plan: Fluids: tolerating PO Electrolytes: monitor and replete as needed Nutrition: Tube feeding with try, dietary consulted Zofran IV for nausea (7) DVT prophylaxis Status: Acute Plan: DVT Prophylaxis: Early ambulation. Heparin 5000U subQ q12hr and bilateral SCDs <Nora Boateng 11/12/17 14:24> (1) [id number] kidney injury Code(s): N17.9 - Acute kidney failure, unspecified; N18.9 - Chronic kidney disease, unspecified Status: Acute (2) Neck pain Code(s): M54.2 - Cervicalgia Status: Acute (3) Chest pain Code(s): R07.9 - Chest pain, unspecified Status: Resolved (4) Chronic neoplasm-related pain Code(s): G89.3 - Neoplasm related pain (acute) (chronic) Status: Acute <Nalini Becerra 11/15/17 11:51> - Assessment and Plan The exam, history, and the medical decision-making described in the above note were completed with the assistance of the resident physician. I reviewed and agree with the findings presented. I attest that I had a [id number] encounter with the patient on the same day, and personally performed and documented my assessment and findings in the medical record. he is very happy to be going back to [facility]. 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 Admitted to observation for ACS rule out. <Nora Boateng 11/12/17 11:23> Discussed Condition With: Dr. Becerra <Nora Boateng 11/12/17 11:23> Discharge Planning: Pending clinical course <Nora Boateng 11/12/17 11:23> <Nora Boateng G - Last Filed: 11/12/17 14:24> (3) Anemia Qualifiers: Anemia type: unspecified type Qualified Code(s): D64.9 - Anemia, unspecified (4) Chronic kidney disease Qualifiers: Chronic kidney disease stage: stage 4 (severe) Qualified Code(s): N18.4 - Chronic kidney disease, stage 4 (severe) (5) Hypertension Qualifiers: Hypertension type: essential hypertension Qualified Code(s): I10 - Essential (primary) hypertension <Nalini Becerra - Last Filed: 11/15/17 11:51> (3) Chest pain Qualifiers: Chest pain type: precordial pain Qualified Code(s): R07.2 - Precordial pain <Cordell Boatengin - Last Filed: 11/12/17 14:24> (3) Anemia Qualifiers: Anemia type: unspecified type Qualified Code(s): D64.9 - Anemia, unspecified (4) Chronic kidney disease Qualifiers: Chronic kidney disease stage: stage 4 (severe) Qualified Code(s): N18.4 - Chronic kidney disease, stage 4 (severe) (5) Hypertension Qualifiers: Hypertension type: essential hypertension Qualified Code(s): I10 - Essential (primary) hypertension <Nalini Becerra - Last Filed: 11/15/17 11:51> (3) Chest pain Qualifiers: Chest pain type: precordial pain Qualified Code(s): R07.2 - Precordial pain
[2017-11-12] MEDS ORDERED: Granisetron 1 MG/ML Vial IV.PUSH ONE (12:00)
[2017-11-12] MEDS ORDERED: Famotidine PF Inj 20 MG/2 ML Vial IV.PUSH ONE (12:00)
[2017-11-12] MEDS ORDERED: Dexamethasone Inj 20 MG in Sodium Chlor 0.9% Inj 50 ML IV.SIG ONE (12:00)
[2017-11-12] MEDS ORDERED: SODIUM CHLOR 0.9% IV.SIG ONE ×2 (13:00→15:00)
[2017-11-12] MEDS ORDERED: PACLITAXEL IV.SIG ONE (13:00)
[2017-11-12] MEDS ORDERED: Sodium Chlor 0.9% Inj 250 ML IV.SIG SCH (13:00)
[2017-11-12] MEDS ORDERED: CARBOPLATIN IV.SIG ONE (15:00)
[2017-11-13] MEDS: Sod Chloride 0.9% Inj 1,000 ML IV.CONT SCH ×2 (00:17→02:05)
[2017-11-13] MEDS: HYDROmorphone PF Inj 2 MG/ML Vial IV.PUSH PRN ×4 (02:01→13:26)
[2017-11-13 05:49] LABS: Baso % (Auto) 0.2 % (0.0-2.0); Hematocrit 22.9 % (39.0-51.0); Hemoglobin 7.9 gm/dL (13.0-17.0); Lymph # (Auto) 0.4 th/mm3 (1.0-4.8); Lymph % (Auto) 4.5 % (9.0-44.0); Mean Corpuscular HGB Conc 34.6 % (32.0-36.0); Mean Corpuscular Hemoglobin 31.1 pg (27.0-34.0); Mean Corpuscular Volume 89.8 fL (80.0-100.0); Mean Platelet Volume 7.4 fL (7.0-11.0); Mono # (Auto) 0.4 th/mm3 (0.0-0.9); Mono % (Auto) 4.5 % (0.0-8.0); Neut # (Auto) 7.4 th/mm3 (1.8-7.7); Neut % (Auto) 90.8 % (16.0-70.0); Platelet Count 142 th/mm3 (150-450); Red Blood Count 2.55 mil/mm3 (4.50-5.90); Red Cell Distribution Width 19.3 % (11.6-17.2); White Blood Count 8.2 th/mm3 (4.0-11.0)
[2017-11-13 06:07] LABS: Alanine Aminotransferase 31 U/L (12-78); Albumin 2.6 g/dL (3.4-5.0); Anion Gap 6 meq/L (5-15); Aspartate Aminotransferase 25 U/L (15-37); Blood Urea Nitrogen 27 mg/dL (7-18); Calcium 8.4 mg/dL (8.5-10.1); Carbon Dioxide 24.8 meq/L (21.0-32.0); Chloride 110 meq/L (98-107); Glomerular Filtration Rate 32 mL/min (>89); Glucose,Random 86 mg/dL (74-106); Potassium 4.3 meq/L (3.5-5.1); Sodium 141 meq/L (136-145)
[2017-11-13 06:09] LABS: Alkaline Phosphatase 93 U/L (45-117); Total Protein 6.4 g/dL (6.4-8.2)
[2017-11-13] MEDS: hydrALAZINE 50 MG Tablet PO SCH ×2 (06:45→15:02)
[2017-11-13] MEDS: Isosorbide Mononitrate 30 MG ER 24HR Tablet (Imdur) PO SCH (06:45)
[2017-11-13] MEDS: Senna/Docusate Sodium 8.6/50 MG Tablet PO SCH (09:12)
[2017-11-13] MEDS: Heparin - SQ 10,000 UNITS/ML Vial SQ SCH (09:12)
[2017-11-13] MEDS: Lisinopril 10 MG Tablet PO SCH (09:12)
--- NOTE | 2017-11-13 09:36 | P.PNONC ---
Subjective Interval history: Afebrile. Tolerated chemotherapy well yesterday. Complains of posterior neck pain, that radiates across to shoulders. Upset that his pain medications are late. Ate breakfast. Objective Vital Signs/Intake & Output: Vital Signs 11/12/17 12:00 11/12/17 16:00 11/12/17 20:00 Temperature 98.8 F 97.2 F L 98.1 F Pulse Rate 56 L 58 L 80 Respiratory Rate 20 20 20 Blood Pressure 136/55 L 170/88 H Pulse Oximetry 97 99 100 11/12/17 20:50 11/12/17 23:15 11/13/17 00:00 Temperature 98.5 F Pulse Rate 54 L Respiratory Rate 18 15 20 Blood Pressure 158/79 H Pulse Oximetry 100 11/13/17 00:42 11/13/17 02:31 11/13/17 04:00 Temperature 98.5 F Pulse Rate 59 L Respiratory Rate 18 16 20 Blood Pressure 137/67 Pulse Oximetry 99 11/13/17 04:54 11/13/17 07:15 11/13/17 08:00 Temperature 98.5 F Pulse Rate 60 Respiratory Rate 20 18 18 Blood Pressure 161/74 H Pulse Oximetry 100 Intake & Output 11/12/17 11/13/17 11/13/17 18:59 06:59 18:59 Intake Total 576.15 / 576.15 1999 Output Total 900 / 900 Balance 576.15 / 576.15 1100 / 1100 Weight 57.742 kg 59.8 kg Intake: IV 576.15 / 576.15 1999 NS Inj 1,000 ML @ 100 mls/hr IV 1999 .CONT .Q10H [facility] Rx#:[id number] Paraplatin Inj 81 MG In NS Inj 258.1 / 258.1 250 ML @ 516.2 mls/hr IV.SIG ONCE ONE Rx#:[id number] Decadron Inj 20 MG In NS Inj 50 55 / 55 ML @ 220 mls/hr IV.SIG ONCE ONE Rx#:[id number] Taxol Inj 78.3 MG In NS Inj 250 263.05 / 263.05 ML @ 131.525 mls/hr IV.SIG ONCE ONE Rx#:[id number] Output: Urine 900 / 900 Other: Date of Last Bowel Movement 11/12/17 11/12/17 Result Diagrams: 11/13/17 04:33 11/13/17 04:33 Laboratory Results: Laboratory Results - last 24 hr 11/13/17 11/13/17 04:33 04:33 WBC 8.2 RBC 2.55 L Hgb 7.9 L Hct 22.9 L MCV 89.8 MCH 31.1 MCHC 34.6 RDW 19.3 H Plt Count 142 L MPV 7.4 Neut % (Auto) 90.8 H Lymph % (Auto) 4.5 L Lares % (Auto) 4.5 Eos % (Auto) 0.0 Baso % (Auto) 0.2 Neut # (Auto) 7.4 Lymph # (Auto) 0.4 L Lares # (Auto) 0.4 Eos # (Auto) 0.0 Baso # (Auto) 0.0 WBC Differential . Differential Comment Auto diff final Sodium 141 Potassium 4.3 Chloride 110 H Carbon Dioxide 24.8 Anion Gap 6 BUN 27 H Creatinine 2.12 H Estimated GFR 32 L Random Glucose 86 Calcium 8.4 L Total Bilirubin 0.2 AST 25 ALT 31 Alkaline Phosphatase 93 Total Protein 6.4 Albumin 2.6 L Medications: Active Medications Generic Name Dose Route Start Last Admin Trade Name Freq PRN Reason Stop Dose Admin Heparin Sodium (Porcine) 5,000 units 11/10/17 21:00 11/13/17 09:12 Heparin Inj SQ 5,000 units Q12HR [facility] Administration Hydralazine HCl 50 mg 11/10/17 14:00 11/13/17 06:45 Apresoline PO 50 mg Q8HR [facility] Administration Hydromorphone HCl 8 mg 11/10/17 14:00 11/13/17 09:12 Dilaudid PO 8 mg Q4HR [facility] Administration Hydromorphone HCl 1 mg 11/10/17 13:40 11/13/17 06:45 Dilaudid Pf Inj IV.PUSH 1 mg Q3H PRN Administration BREAKTHROUGH PAIN Sodium Chloride 1,000 mls @ 100 mls/hr 11/10/17 20:00 11/13/17 02:05 Ns Inj IV.CONT 100 mls/hr .Q10H [facility] Administration Isosorbide Mononitrate 30 mg 11/11/17 07:00 11/13/17 06:45 Imdur PO 30 mg DAILY@0700 [facility] Administration Lisinopril 10 mg 11/10/17 13:45 11/13/17 09:12 Prinivil PO 10 mg DAILY [facility] Administration Nifedipine 60 mg 11/10/17 13:45 11/13/17 09:12 Procardia Xl PO 60 mg Q12HR [facility] Administration Ondansetron HCl 4 mg 11/10/17 13:30 11/11/17 14:59 Zofran Inj IV.PUSH 4 mg Q6H PRN Administration NAUSEA OR VOMITING Senna/Docusate Sodium 1 tab 11/10/17 21:00 11/13/17 09:12 Mary Lou-Colace PO Not Given BID [facility] Objective Remarks: GENERAL: Elderly male patient, lying in bed, in no acute distress. SKIN: Warm and dry. HEAD: Normocephalic. MOUTH: Orwell moist mucous membranes. EYES: No scleral icterus. No injection or drainage. PERRLA. NECK: Supple, trachea midline. No JVD , enlarged/hard right upper cervical node. CARDIOVASCULAR: Regular rate and rhythm without murmurs. RESPIRATORY: Breath sounds clear, equal bilaterally. No accessory muscle use. GASTROINTESTINAL: Abdomen flat, soft, non-tender, nondistended. EXTREMITIES: No cyanosis, or edema. MUSCULOSKELETAL: Adequate muscle tone. NEUROLOGICAL: No obvious focal deficit. Awake, alert, and oriented x3. PSYCHIATRIC: Appropriate mood and affect; insight and judgment normal. 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 Unfortunately he has had multiple hospitalizations due to malnourishment and failure to thrive which has resulted in suboptimal treatment dosing. He was admitted with complaints of chest pain. Acute coronary syndrome has been ruled out by attending 1. Status post radiation yesterday. His last radiation is scheduled for November 16. 2. Status post chemotherapy with carboplatin and paclitaxel, yesterday. Scheduled for weekly. Patient reports tolerated well. 3. Continue IV fluids.
--- NOTE | 2017-11-13 11:28 | P.PNFP ---
Subjective Interval history: Mr Beard is stable today and discussion he very much wants to go to [facility] before his Medicare insurance runs out and will not pay for any additional services. He is doing well after chemo he does have pain in his neck his cancer pain as well as some chronic pain due to his osteo-and arthritis. He did not complain about any breathing problems chest pain abdominal problems there were no reports about any other issues overnight. Results - Labs Result diagrams: 11/13/17 04:33 11/13/17 04:33 Abnormal lab results 11/13/17 11/13/17 Range/Units 04:33 04:33 RBC 2.55 L (4.50-5.90) mil/mm3 Hgb 7.9 L (13.0-17.0) gm/dL Hct 22.9 L (39.0-51.0) % RDW 19.3 H (11.6-17.2) % Plt Count 142 L (150-450) th/mm3 Neut % (Auto) 90.8 H (16.0-70.0) % Lymph % (Auto) 4.5 L (9.0-44.0) % Lymph # (Auto) 0.4 L (1.0-4.8) th/mm3 Chloride 110 H (98-107) meq/L BUN 27 H (7-18) mg/dL Creatinine 2.12 H (0.60-1.30) mg/dL Estimated GFR 32 L (>89) mL/min Calcium 8.4 L (8.5-10.1) mg/dL Albumin 2.6 L (3.4-5.0) g/dL Short CBC 11/13/17 Range/Units 04:33 WBC 8.2 (4.0-11.0) th/mm3 Hgb 7.9 L (13.0-17.0) gm/dL Hct 22.9 L (39.0-51.0) % Plt Count 142 L (150-450) th/mm3 BMP 11/13/17 04:33 Sodium 141 Potassium 4.3 Chloride 110 H Carbon Dioxide 24.8 BUN 27 H Creatinine 2.12 H Calcium 8.4 L Liver Function 11/13/17 Range/Units 04:33 Total Bilirubin 0.2 (0.2-1.0) mg/dL AST 25 (15-37) U/L ALT 31 (12-78) U/L Alkaline Phosphatase 93 (45-117) U/L Albumin 2.6 L (3.4-5.0) g/dL Physical Exam Vital signs: Vital Signs 11/12/17 12:00 11/12/17 16:00 11/12/17 20:00 Temperature 98.8 F 97.2 F L 98.1 F Pulse Rate 56 L 58 L 80 Respiratory Rate 20 20 20 Blood Pressure 136/55 L 170/88 H Pulse Oximetry 97 99 100 11/12/17 20:50 11/12/17 23:15 11/13/17 00:00 Temperature 98.5 F Pulse Rate 54 L Respiratory Rate 18 15 20 Blood Pressure 158/79 H Pulse Oximetry 100 11/13/17 00:42 11/13/17 02:31 11/13/17 04:00 Temperature 98.5 F Pulse Rate 59 L Respiratory Rate 18 16 20 Blood Pressure 137/67 Pulse Oximetry 99 11/13/17 04:54 11/13/17 07:15 11/13/17 08:00 Temperature 98.5 F Pulse Rate 60 Respiratory Rate 20 18 18 Blood Pressure 161/74 H Pulse Oximetry 100 Intake & Output 11/12/17 11/13/17 11/13/17 18:59 06:59 18:59 Intake Total 576.15 / 576.15 1999 Output Total 900 / 900 Balance 576.15 / 576.15 1100 / 1100 Weight 57.742 kg 59.8 kg Intake: IV 576.15 / 576.15 1999 NS Inj 1,000 ML @ 100 mls/hr IV 1999 .CONT .Q10H [facility] Rx#:[id number] Paraplatin Inj 81 MG In NS Inj 258.1 / 258.1 250 ML @ 516.2 mls/hr IV.SIG ONCE ONE Rx#:[id number] Decadron Inj 20 MG In NS Inj 50 55 / 55 ML @ 220 mls/hr IV.SIG ONCE ONE Rx#:[id number] Taxol Inj 78.3 MG In NS Inj 250 263.05 / 263.05 ML @ 131.525 mls/hr IV.SIG ONCE ONE Rx#:[id number] Output: Urine 900 / 900 Other: Date of Last Bowel Movement 11/12/17 11/12/17 - Constitutional no acute distress, cachectic, cooperative - Routine HEENT Exam Head: Present: normocephalic, atraumatic. Absent: facial swelling Eye: Present: EOMI, PERRL - Routine Neck Exam Present: supple, full ROM - Routine Respiratory Exam Present: CTA bilaterally. Absent: accessory muscle use, patient mechanically ventilated - Routine Cardiovascular Exam Present: RRR. Absent: murmur, gallop, rubs, bradycardia - Routine Abdominal Exam Present: soft - Routine Extremities Exam Absent: cyanosis, clubbing, edema - Routine Skin Exam Present: intact. Absent: cyanosis, petechiae - Routine Neurological Exam Present: alert, oriented X3. 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 Treated by Dr. Pena of Heme Onc and Dr. Martinez of Radiation Oncology. Consulted oncology, appreciate recommendations -Weekly chemotherapy with carboplatin and paclitaxel. -Chemo done yesterday in hospital Consulted radiation onc, appreciate recommendations -Due for 2 more treatments. Consulted palliative care due to being interested in hospice care, appreciate recommendations Resume at home pain regimen, can adjust as needed -Dilaudid 8 mg p.o. every 4 hours scheduled -Dilaudid 1 mg IV every 3 hours as needed for breakthrough pain (2) Chest pain Code(s): R07.9 - Chest pain, unspecified Status: Resolved Plan: Patient presenting with chest pain that is similar to [place] in the past. Troponin on admission is negative. ACS has been ruled out. EKG on admission is similar to last EKG on 09/02 showing sinus rhythm with RBBB CXR on admission shows no acute abnormality or significant interval change Trend troponins 3 with corresponding EKGs Aspirin 325 mg given in ED Nitropaste He made himself a DNR and is not want any aggressive treatment which includes bypass surgery or anything else. 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 Appears to be normocytic in nature due to MCV of 89.2. Will continue to monitor trend and will transfuse if falls below 8. (4) Chronic kidney disease Code(s): N18.9 - Chronic kidney disease, unspecified Status: Chronic Plan: Creatinine on admission is 2.67. Last creatinine recorded on 10/26 was 2.19. Disease may be worsening or may be an acute issue. Cr is now improving. Continue to monitor through BMPs Renally dose medications Avoid nephrotoxic medications (5) Hypertension Code(s): I10 - Essential (primary) hypertension Status: Chronic Plan: Continue at home medications -hydralazine 50 mg p.o. every 8 hours -Isosorbide mononitrate 30 mg p.o. daily -Lisinopril 10 mg p.o. daily -Nifedipine 60 mg p.o. every 12 hours (6) Nutrition, metabolism, and development symptoms Code(s): R63.8 - Other symptoms and signs concerning food and fluid intake Status: Acute Plan: Fluids: tolerating PO Electrolytes: monitor and replete as needed Nutrition: Tube feeding plus regular diet as tolerated Zofran IV for nausea (7) DVT prophylaxis Status: Acute Plan: DVT Prophylaxis: Early ambulation. 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 Admitted to observation for ACS rule out. Discharge Planning: Medicare will refuse to pay for any half-way placement after the of this month. Mr. Beard very much wants to go back to [facility]. He did well there they transported him to his appointments and his radiation. They fed him well and did a good job with his daily care and he had no problems until he left [facility] and went to live with his ex-. After he went there he did not eat and lost a large amount of weight he also had no transportation as his ex- and her boyfriend did not agree to drive him to any radiation appointments nor did they drive him to any chemotherapy appointments. Will send him to [facility] as he is doing super well post chemo and he will get transportation over here to continue his radiation. (2) Chest pain Qualifiers: Chest pain type: precordial pain Qualified Code(s): R07.2 - Precordial pain (3) Anemia Qualifiers: Anemia type: bone marrow failure Bone marrow failure anemia type: pancytopenia, antineoplastic chemotherapy-induced (4) Chronic kidney disease Qualifiers: Chronic kidney disease stage: stage 4 (severe) Qualified Code(s): N18.4 - Chronic kidney disease, stage 4 (severe) (5) Hypertension Qualifiers: Hypertension type: essential hypertension Qualified Code(s): I10 - Essential (primary) hypertension
--- NOTE | 2017-11-13 11:32 | P.DS ---
Date of admission: 11/10/17 12:50 Primary care physician: Mateo Pena MD Brief History from admission: Mr. Beard is a 62-year-old white male with a past medical history of squamous cell carcinoma of the pharynx presenting to the ED with chest pain. He states that this pain started last night. He describes it as a 10/10 stabbing pain and pressure in his left chest and radiating down his left arm. It is worse with movement, better with laying down and with a dose of nitroglycerin. He also had associated shortness of breath. He has a history of NE and states that this is the same pain that he had before. He is also had recent stress with his family and from his cancer. He has had issues with his nutrition and has lost more weight. He states that he has been vomiting all his food and tube feeds. His cancer is currently managed by Dr. Pena. Patient is unsure of whether he wants to continue with therapy and would like to discuss hospice options. DS: Diagnosis - Discharge Diagnosis (1) [id number] kidney injury Status: Acute (2) Neck pain Status: Acute (3) Chest pain Status: Resolved (4) Chronic neoplasm-related pain Status: Acute DS: Medications - Discharge Medications Prescriptions: hydromorphone 8 mg PO Q6H #28 tab ondansetron 4 mg PO Q6H PRN #30 tab PRN Reason: Nausea Or Vomiting DS: Summary Hospital Course: Mr Beard is a 62 yr old male with a PMH of head and neck cancer whom presented to the ED with left sided chest pain and shortness of breath on 11/10. He was concerned this was an NE because it felt similar that in the past. His EKG and trended troponin were negative for ACS. He also complained of a lot of pain associated with his cancer. During this visit Palliative care was consulted to asses pt's readiness for Hospice and goals of care management. Pt decided not proceed with Hospice at this moment, but reaffirms his code status of DNR. Oncology was consulted as well to continue his cancer treatment while inpatient , including radiation and chemotherapy. Dietitian consulted to help manage his PEG tube feeds. Pt was discharge in a stable condition to SNF with plans to continue his radiation therapy during the week. Pain medication script supply for one week signed prior to discharge. - Time Spent with Patient Total time spent providing and/or coordinating discharge services: Less than 30 minutes - Quality: VTE Deep Vein Thrombosis/Pulmonary Embolism Present on Admission: No Exam Vital signs: Vital Signs 11/12/17 12:00 11/12/17 16:00 11/12/17 20:00 Temperature 98.8 F 97.2 F L 98.1 F Pulse Rate 56 L 58 L 80 Respiratory Rate 20 20 20 Blood Pressure 136/55 L 170/88 H Pulse Oximetry 97 99 100 11/12/17 20:50 11/12/17 23:15 11/13/17 00:00 Temperature 98.5 F Pulse Rate 54 L Respiratory Rate 18 15 20 Blood Pressure 158/79 H Pulse Oximetry 100 11/13/17 00:42 11/13/17 02:31 11/13/17 04:00 Temperature 98.5 F Pulse Rate 59 L Respiratory Rate 18 16 20 Blood Pressure 137/67 Pulse Oximetry 99 11/13/17 04:54 11/13/17 07:15 11/13/17 08:00 Temperature 98.5 F Pulse Rate 60 Respiratory Rate 20 18 18 Blood Pressure 161/74 H Pulse Oximetry 100 Intake & Output 11/12/17 11/13/17 11/13/17 18:59 06:59 18:59 Intake Total 576.15 / 576.15 1999 Output Total 900 / 900 Balance 576.15 / 576.15 1100 / 1100 Weight 57.742 kg 59.8 kg Intake: IV 576.15 / 576.15 1999 NS Inj 1,000 ML @ 100 mls/hr IV 1999 .CONT .Q10H [facility] Rx#:[id number] Paraplatin Inj 81 MG In NS Inj 258.1 / 258.1 250 ML @ 516.2 mls/hr IV.SIG ONCE ONE Rx#:[id number] Decadron Inj 20 MG In NS Inj 50 55 / 55 ML @ 220 mls/hr IV.SIG ONCE ONE Rx#:[id number] Taxol Inj 78.3 MG In NS Inj 250 263.05 / 263.05 ML @ 131.525 mls/hr IV.SIG ONCE ONE Rx#:[id number] Output: Urine 900 / 900 Other: Date of Last Bowel Movement 11/12/17 11/12/17 Narrative: GENERAL: very thin patient. in NAD SKIN: Warm and dry. HEAD: Normocephalic and atraumatic. EYES: No scleral icterus. No injection or drainage. ENT: No nasal drainage noted. Airway patent. CARDIOVASCULAR: Regular rate and rhythm without murmurs, gallops, or rubs. RESPIRATORY: Breath sounds equal bilaterally. No accessory muscle use. ABDOMEN/GI: Abdomen soft, non-tender, bowel sounds present, no rebound, no guarding EXTREMITIES: No cyanosis or edema. NEUROLOGICAL: Awake and alert. Motor and sensory grossly within normal limits. Normal speech. Results Procedures completed during hospitalization: None Labs on day of discharge: Labs from last 24 hours 11/13/17 11/13/17 04:33 04:33 WBC 8.2 RBC 2.55 L Hgb 7.9 L Hct 22.9 L MCV 89.8 MCH 31.1 MCHC 34.6 RDW 19.3 H Plt Count 142 L MPV 7.4 Neut % (Auto) 90.8 H Lymph % (Auto) 4.5 L [place] % (Auto) 4.5 Eos % (Auto) 0.0 Baso % (Auto) 0.2 Neut # (Auto) 7.4 Lymph # (Auto) 0.4 L [place] # (Auto) 0.4 Eos # (Auto) 0.0 Baso # (Auto) 0.0 WBC Differential . Differential Comment Auto diff final Sodium 141 Potassium 4.3 Chloride 110 H Carbon Dioxide 24.8 Anion Gap 6 BUN 27 H Creatinine 2.12 H Estimated GFR 32 L Random Glucose 86 Calcium 8.4 L Total Bilirubin 0.2 AST 25 ALT 31 Alkaline Phosphatase 93 Total Protein 6.4 Albumin 2.6 L - Impressions ITS Impressions Chest X-Ray 11/10/17 10:50 CONCLUSION: 1. No acute abnormality or significant interval change. Discharge Plan - Discharge Disposition Patient Disposition: Discharge to SNF - Discharge Condition Condition: Stable - Discharge Order Discharge Orders: Discharge Order (Routine); Ordered 11/13/17 Ordered By: Lizett Donohue - Physicians Team Primary Care Provider: Mateo Pena Attending Provider: Nalini Becerra Other Providers: Mateo Pena MD ; Jv Cruz MD ; Petar Mendoza MD ; [facility]
[2017-11-13] MEDS ORDERED: Heparin Central Flush 100 UNIT/ML 5 ML Vial IV.FLUSH PRN ×2 (14:39)
== END 2017-11-13 15:10 ==
LOC: HCIN 09:54 → NEPC 09:54 → NEDA 09:54 → HCIS 19:25 → HCIN 11-12 08:49
PROVIDERS: ADMIT Family Medicine; ATTEND Family Medicine
DX: R13.10 Dysphagia, unspecified; C77.0 Secondary and unspecified malignant neoplasm of lymph nodes of head, face and neck; Z85.46 Personal history of malignant neoplasm of prostate; N17.9 Acute kidney failure, unspecified; Z92.3 Personal history of irradiation; Z66 Do not resuscitate; G89.3 Neoplasm related pain (acute) (chronic); Z79.899 Other long term (current) drug therapy; D64.81 Anemia due to antineoplastic chemotherapy; Z87.891 Personal history of nicotine dependence; I12.9 Hypertensive chronic kidney disease with stage 1 through stage 4 chronic kidney disease, or unspecified chronic kidney disease; I25.2 Old myocardial infarction; C14.0 Malignant neoplasm of pharynx, unspecified; C01 Malignant neoplasm of base of tongue; D70.1 Agranulocytosis secondary to cancer chemotherapy; Z93.1 Gastrostomy status; N18.4 Chronic kidney disease, stage 4 (severe); R07.89 Other chest pain; Z51.0 Encounter for antineoplastic radiation therapy

== ENCOUNTER 2018-03-01 11:27 | Observation (INO) ==
[2018-03-01] MEDS ORDERED: Morphine Inj 4 MG/ML Vial IV.PUSH ONE (12:14)
--- NOTE | 2018-03-01 12:23 | ED ---
HPI General Chief complaint: Back Pain/Injury Stated complaint: back pain Time Seen by Provider: 03/01/18 12:07 History of Present Illness HPI narrative: 63-year-old male with history of squamous cell cancer of the tongue to the ED today from his oncologist for high blood pressure and lower back pain. Patient reports blood pressure systolically was above 200 at the clinic and he was told to come to the ER. He denies any headache, any chest pain, any shortness of breath, or any lightheadedness. He also complains of lower back pain with associated weak weakness in his legs. This has been chronic for over a year and he is worried that it could be his cancer. He reports numbness and tingling in bilateral arms and legs. Denies any bowel or bladder incontinence, any radiating pain, fevers, chills, recent illness. He is scheduled to follow-up with his oncologist on . Related Data Home Medications Medication Instructions Recorded Confirmed amlodipine [Norvasc] 10 mg PO DAILY 01/16/18 01/16/18 oxycodone 10 mg PO Q6H PRN 01/16/18 01/16/18 oxycodone [OxyContin] 30 mg PO Q12H 01/16/18 01/16/18 Previous Rx's Medication Instructions Recorded hydralazine 50 mg PO Q8HR tab 11/13/17 lisinopril 10 mg PO DAILY tab 11/13/17 Allergies Allergy/AdvReac Type Severity Reaction Status Date / Time simvastatin AdvReac Severe Joint Pain Verified 03/01/18 11:41 Review of Systems Constitutional Denies chills and Denies fever(s) Eyes Denies change in vision ENT Denies neck pain and Denies sore throat Cardiovascular Denies chest pain, Denies syncope, Denies edema and Denies palpitations Respiratory Denies cough, Denies dyspnea and Denies dyspnea on exertion Gastrointestinal Denies fecal incontinence, Denies diarrhea, Denies nausea and Denies vomiting Genitourinary Denies urinary incontinence Musculoskeletal Reports muscle weakness, Reports numbness and Reports tingling Integumentary/Breasts Denies rash Neurologic Reports numbness, Reports tingling and Reports weakness PMFSH Social History Social History Substance History: No History of Abuse Second Hand Smoke Exposure: Yes Smoking Status: Current every day smoker Tobacco Type: Cigarettes How Often Do You Have a Drink Containing Alcohol: Never Recent Travel in [place] within the Last 8 Weeks: No Recent Out of Country Travel within the Last 8 Weeks: No Immunization History Tetanus Immunization: <5 Years Exam Narrative Exam Narrative: GENERAL: Thin male in no acute distress SKIN: Focused skin assessment warm/dry. HEAD: Atraumatic. Normocephalic. EYES: Pupils equal and round. No scleral icterus. No injection or drainage. Right enophthalmos ENT: No nasal bleeding or discharge. Mucous membranes pink and moist. NECK: Trachea midline. No JVD. CARDIOVASCULAR: Regular rate and rhythm. No murmur appreciated. RESPIRATORY: No accessory muscle use. Clear to auscultation. Breath sounds equal bilaterally. GASTROINTESTINAL: Abdomen soft, non-tender, nondistended. Hepatic and splenic margins not palpable. MUSCULOSKELETAL: No obvious deformities. No clubbing. No cyanosis. No edema. Spinal tenderness or lumbar spine NEUROLOGICAL: Awake and alert. No obvious cranial nerve deficits. Motor grossly within normal limits. Normal speech. PSYCHIATRIC: Appropriate mood and affect; insight and judgment normal. Course Initial Documented Vital Signs Temperature 98.6 F 03/01/18 11:39 Pulse Rate 77 03/01/18 11:39 Respiratory Rate 18 03/01/18 11:39 Blood Pressure 204/97 H 03/01/18 11:39 Pulse Oximetry 96 03/01/18 11:39 Last Documented Vital Signs Temperature 98.6 F 03/01/18 11:39 Pulse Rate 73 03/01/18 12:09 Respiratory Rate 18 03/01/18 12:09 Blood Pressure 184/105 H 03/01/18 12:09 Pulse Oximetry 100 03/01/18 12:38 Medical Decision Making [facility] Narrative Medical decision making narrative: 63-year-old male with history of shortness of tongue presents to the ED from his oncologist office due to elevated blood pressure. He also complains of chronic lower back pain and bilateral leg weakness. He reports his blood pressure systolically was over 200 the clinic. He denied any signs of hypertensive emergency such as headache, visual changes, chest pain, shortness of breath or lightheadedness. His chronic back pain has been worsening over the past year and is having difficulty walking. He is worried that this is due to his cancer. His scheduled follow-up with oncologist on . On arrival his vital signs were unremarkable except elevated blood pressure 185/105. He had point tenderness over his lumbar spine. Morphine was ordered for pain control, Zofran for nausea, and hydralazine to decrease blood pressure. CBC and CMP were ordered. MR spine was ordered to investigate for etiology back pain. Results below: CBC revealed anemia 9.6 which appears to be baseline and was negative for any leukocytosis neutrophilia or lately abnormality CMP revealed BUN of 47 and creatinine of 3.5 which appears to be significantly elevated from previous studies. Liver enzymes were also elevated with an AST 82 and ALT 91 Lumbar spine MRI: degenerative disc disease L4-L5 and L5-S1 with moderate bilateral foraminal narrowing. There is no significant spinal canal stenosis. No evidence of metastatic disease. Patient has an appointment with his oncologist on , he will bring a copy of his MRI report with him to his office appointment. Patient is stable for discharge at this time. Patient will return to the emergency room as needed. patient's baseline cr 2.12 - 2.4 - creatine now 3.5 - patient unsure if he has kidney disease. will obs for renal insuffiency Case reviewed with Dr. Nicholas who accepts pt to service Medical Screen Exam Complete: Yes Emergency Medical Condition: Yes Lab Data Result diagrams: 03/01/18 12:30 03/01/18 12:30 Lab Results 03/01/18 03/01/18 03/01/18 Range/Units 12:30 12:30 12:45 WBC 4.3 (4.0-11.0) th/mm3 RBC 3.08 L (4.50-5.90) mil/mm3 Hgb 9.6 L (13.0-17.0) gm/dL Hct 28.1 L (39.0-51.0) % MCV 91.2 (80.0-100.0) fL MCH 31.3 (27.0-34.0) pg MCHC 34.3 (32.0-36.0) % RDW 14.8 (11.6-17.2) % Plt Count 234 (150-450) th/mm3 MPV 6.7 L (7.0-11.0) fL Neut % (Auto) 76.1 H (16.0-70.0) % Lymph % (Auto) 12.0 (9.0-44.0) % [place] % (Auto) 9.5 H (0.0-8.0) % Eos % (Auto) 1.6 (0.0-4.0) % Baso % (Auto) 0.8 (0.0-2.0) % Neut # (Auto) 3.3 (1.8-7.7) th/mm3 Lymph # (Auto) 0.5 L (1.0-4.8) th/mm3 [place] # (Auto) 0.4 (0.0-0.9) th/mm3 Eos # (Auto) 0.1 (0.0-0.4) th/mm3 Baso # (Auto) 0.0 (0.0-0.2) th/mm3 WBC Differential . Differential Comment Auto diff final Sodium 140 (136-145) meq/L Potassium 4.0 (3.5-5.1) meq/L Chloride 104 (98-107) meq/L Carbon Dioxide 31.4 (21.0-32.0) meq/L Anion Gap 5 (5-15) meq/L BUN 47 H (7-18) mg/dL Creatinine 3.50 H (0.60-1.30) mg/dL Estimated GFR 18 L (>89) mL/min Random Glucose 159 H (74-106) mg/dL Calcium 8.3 L (8.5-10.1) mg/dL Total Bilirubin 0.5 (0.2-1.0) mg/dL AST 82 H (15-37) U/L ALT 91 H (12-78) U/L Alkaline Phosphatase 118 H (45-117) U/L Total Protein 7.5 (6.4-8.2) g/dL Albumin 3.3 L (3.4-5.0) g/dL Lipase 244 (73-393) U/L Urine Color Yellow (Yellw/Straw) Urine Clarity Clear (Clear) Urine pH 5.0 (5.0-8.5) Ur Specific [place] 1.017 (1.002-1.035) Urine Protein 500 or greater (Neg-Trace) mg/dL Urine Glucose (UA) 50 (Negative) mg/dL Urine Ketones Negative (Negative) mg/dL Urine Occult Blood Small H (Negative) Urine Nitrate Negative (Negative) Urine Bilirubin Negative (Negative) Urine Urobilinogen Less than 2 (Less than 2) mg/dL Ur Leukocyte Esterase Negative (Negative) Urine RBC 1 (0-3) /hpf Urine WBC 2 (0-5) /hpf Ur Squamous Epith Cells <1 (0-5) /hpf Hyaline Casts 4 (0-3) /lpf Urine Sperm Rare H (None) /hpf Micro UA Comment Culture not ind Ur Microscopic Review Not Reportable Urine Culture Comments Culture not ind Imaging Data Radiologist's impression: Lumbar Spine MRI 03/01/18 12:14 CONCLUSION: Degenerative disc disease L4-L5 and L5-S1 with moderate bilateral foraminal narrowing. There is no significant spinal canal stenosis. No evidence of metastatic disease. Discharge Plan Discharge Disposition Patient Disposition: ED Admit(ED Internal Use Only) Discharge Condition Condition: Fair Discharge Details Diagnosis: Acute on chronic renal insufficiency Physicians Team ED Provider: Clement Powers Primary Care Provider: Mateo Pena Rxs /Orders / Referrals /Forms Prescriptions: No Action lisinopril 10 mg Tablet 10 mg PO DAILY RF: 0 hydralazine 50 mg Tablet 50 mg PO Q8HR RF: 0 amlodipine [Norvasc] 10 mg Tablet 10 mg PO DAILY RF: 0 oxycodone 10 mg Tablet 10 mg PO Q6H PRN (Reason: Pain) RF: 0 oxycodone [OxyContin] 30 mg Tablet,Oral Only,Ext.Rel.12 Hr 30 mg PO Q12H RF: 0 Discharge Interventions Interventions: Vital Signs Last Done: 03/01/18 12:09 Status ED Status: With Doctor
[2018-03-01] MEDS ORDERED: hydrALAZINE HCl Inj 20 MG/ML Vial IV.PUSH ONE ×2 (12:30→14:00)
[2018-03-01 12:49] LABS: Baso % (Auto) 0.8 % (0.0-2.0); Eos # (Auto) 0.1 th/mm3 (0.0-0.4); Eos % (Auto) 1.6 % (0.0-4.0); Hematocrit 28.1 % (39.0-51.0); Hemoglobin 9.6 gm/dL (13.0-17.0); Lymph # (Auto) 0.5 th/mm3 (1.0-4.8); Mean Corpuscular HGB Conc 34.3 % (32.0-36.0); Mean Corpuscular Hemoglobin 31.3 pg (27.0-34.0); Mean Corpuscular Volume 91.2 fL (80.0-100.0); Mean Platelet Volume 6.7 fL (7.0-11.0); Mono # (Auto) 0.4 th/mm3 (0.0-0.9); Mono % (Auto) 9.5 % (0.0-8.0); Neut # (Auto) 3.3 th/mm3 (1.8-7.7); Neut % (Auto) 76.1 % (16.0-70.0); Platelet Count 234 th/mm3 (150-450); Red Blood Count 3.08 mil/mm3 (4.50-5.90); Red Cell Distribution Width 14.8 % (11.6-17.2); White Blood Count 4.3 th/mm3 (4.0-11.0)
[2018-03-01 13:09] LABS: Alanine Aminotransferase 91 U/L (12-78); Albumin 3.3 g/dL (3.4-5.0); Anion Gap 5 meq/L (5-15); Aspartate Aminotransferase 82 U/L (15-37); Blood Urea Nitrogen 47 mg/dL (7-18); Calcium 8.3 mg/dL (8.5-10.1); Carbon Dioxide 31.4 meq/L (21.0-32.0); Chloride 104 meq/L (98-107); Glomerular Filtration Rate 18 mL/min (>89); Glucose,Random 159 mg/dL (74-106); Lipase 244 U/L (73-393); Sodium 140 meq/L (136-145)
[2018-03-01 13:11] LABS: Alkaline Phosphatase 118 U/L (45-117); Total Protein 7.5 g/dL (6.4-8.2)
[2018-03-01 14:04] LABS: Bilirubin,Urine Negative (Negative); Clarity,Urine Clear (Clear); Color,Urine Yellow (Yellw/Straw); Glucose,Urine (UA) 50 mg/dL (Negative); Hyaline Casts,Urine 4 /lpf (0-3); Leukocyte Esterase,Urine Negative (Negative); Nitrite,Urine Negative (Negative); Specific Gravity,Urine 1.017 (1.002-1.035); Sperm,Urine Rare /hpf; Squamous Epithelial Cell,Urine <1 /hpf (0-5)
--- NOTE | 2018-03-01 15:52 | MR ---
EXAM DATE: 03/01/2018 2:45 PM EST AGE/SEX: 63 years / Male INDICATIONS: . Back pain with carcinoma. CLINICAL DATA: This is the patient's initial encounter. Patient reports that signs and symptoms have been present for 2 days and indicates a pain score of 5/10. MEDICAL/SURGICAL HISTORY: Carcinoma, prostatic. Hepatitis C. Renal failure, chronic. neck an d throat cancer Tonsillectomy. right foot surgery, peg tube, port placed, left shoulder surgery COMPARISON: No prior exams available for comparison. TECHNIQUE: Multiplanar, multisequence MRI of the lumbar spine was performed without contrast. Patie nt was scanned in a sitting position; neutral, flexion, and extension scans were performed in the sa gittal plane. FINDINGS: Sagittal images demonstrate normal vertebral body alignment and curvature. No focal areas of marrow r eplacement are identified. The conus terminates normally. Axial images were performed from T12-L1 thr ough L5-S1.There is disc space narrowing and marginal osteophyte formation at L4-L5 and L5-S1. T12-L1: No significant abnormalities identified. L1-L2: No significant abnormalities identified. L2-L3: No significant abnormalities identified. L3-L4: There is mild diffuse annular bulge of the disc. The neural foramina are clear bilaterally. T here is no significant spinal canal stenosis. L4-L5: There is mild annular bulge of the disc. There is mild facet arthritis and ligamentum flavum hypertrophy bilaterally. There is moderate neural foraminal narrowing bilaterally. There is no sign ificant spinal canal stenosis. L5-S1: There is mild annular bulge of the disc. There is moderate neural foraminal narrowing bilater ally. There is no significant spinal canal stenosis. CONCLUSION: Degenerative disc disease L4-L5 and L5-S1 with moderate bilateral foraminal narrowing. There is no si gnificant spinal canal stenosis. No evidence of metastatic disease. Electronically signed by: Eleazar Vivar MD 03/01/2018 3:51 PM EST
[2018-03-01] MEDS: Sod Chloride 0.9% Inj 1,000 ML IV.CONT SCH ×2 (18:55→23:09)
--- NOTE | 2018-03-01 20:09 | P.HP ---
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 The patient reports that for the past week he has had increasingly worsening lower back pain to the point where he can now barely ambulate. He denies any fevers/chills. He completed chemotherapy and radiation 1 month ago. His oncologist is Dr. Pena. The patient denies any chest pain or shortness of breath. No abdominal pain. No nausea/vomiting/ diarrhea. No focal neurologic deficits. Review of Systems All other systems reviewed negative except as stated in HPI PMFSH - History History Provided By: Patient - Medical History Medical History: Medical History (Last Reviewed 03/01/18 @ 19:54 by Sandra Brooks MD) Adult failure to thrive Anxiety Chronic renal failure, stage 3 (moderate) HBP (high blood pressure) Head and neck cancer Hepatitis C MRSA (methicillin resistant Staphylococcus aureus) infection Posttraumatic stress disorder Prostate carcinoma Protein calorie malnutrition Squamous cell carcinoma of base of tongue - Surgical History Surgical History: Surgical History (Last Reviewed 03/01/18 @ 19:55 by Sandra Brooks MD) H/O neck surgery History of eye surgery History of knee surgery PEG (percutaneous endoscopic gastrostomy) status - Family History Family History: Family History (Last Reviewed 03/01/18 @ 19:55 by Sandra Brooks MD) Mother Respiratory failure - Tobacco History Second Hand Smoke Exposure: Yes Tobacco Use In Past 30 Days: Yes Smoking Status: Current every day smoker Tobacco Type: Cigarettes - Alcohol History How Often Do You Have a Drink Containing Alcohol: Never - Substance Use History Substance History: No History of Abuse - Travel History Recent Travel in the [place] Within the Last 8 Weeks: No Recent Travel Out of the Country Within the Last 8 Weeks: No - Immunization History Tetanus Immunization: <5 Years Medications and Allergies Active Medications: Active Medications Sodium Chloride (Ns Inj) 1,000 mls @ 100 mls/hr IV.CONT .Q10H TONY Last Admin: 03/01/18 18:55 Dose: 100 mls/hr Sodium Chloride (Ns Flush) 2 ml IV.FLUSH UNSCH PRN PRN Reason: FLUSH AFTER USING IV ACCESS Last Admin: 03/01/18 15:15 Dose: 2 ml Allergies Allergy/AdvReac Type Severity Reaction Status Date / Time simvastatin AdvReac Severe Joint Pain Verified 03/01/18 11:41 Home Medications Medication Instructions Recorded Confirmed Type amlodipine [Norvasc] 10 mg PO DAILY 01/16/18 03/01/18 History oxycodone 10 mg PO Q6H PRN 01/16/18 03/01/18 History oxycodone [OxyContin] 30 mg PO Q12H 01/16/18 03/01/18 History Exam Vital signs: Vital Signs 03/01/18 11:39 03/01/18 12:09 03/01/18 12:38 Temperature 98.6 F Pulse Rate 77 73 Respiratory Rate 18 18 Blood Pressure 204/97 H 184/105 H Pulse Oximetry 96 97 100 03/01/18 18:55 Temperature Pulse Rate 67 Respiratory Rate 16 Blood Pressure 192/91 H Pulse Oximetry 100 Intake & Output 03/01/18 03/01/18 03/02/18 06:59 18:59 06:59 Weight 56.699 kg Narrative: Gen.: No acute distress Head: Normocephalic. Atraumatic. EENT: Pupils equal round and reactive to light. Nose without drainage. Airway intact. Throat without injection. Cardiovascular: Regular rate and rhythm. No murmurs, rubs or gallops. Respiratory: Lungs clear to auscultation bilaterally. No wheezes or rhonchi. Abdomen: Soft, nontender, nondistended. No peritoneal signs. Musculoskeletal: No gross deformities. No edema. Spinal tenderness along lumbar spine. No step-offs. Skin: No obvious rashes or erythema. Neuro: Sensory and motor grossly intact. Cranial nerves II through XII grossly intact. Results - Labs CBC & Chem 7: 03/01/18 12:30 03/01/18 12:30 Labs: Laboratory Results - last 24 hr 03/01/18 03/01/18 03/01/18 12:30 12:30 12:45 WBC 4.3 RBC 3.08 L Hgb 9.6 L Hct 28.1 L MCV 91.2 MCH 31.3 MCHC 34.3 RDW 14.8 Plt Count 234 MPV 6.7 L Neut % (Auto) 76.1 H Lymph % (Auto) 12.0 [place] % (Auto) 9.5 H Eos % (Auto) 1.6 Baso % (Auto) 0.8 Neut # (Auto) 3.3 Lymph # (Auto) 0.5 L [place] # (Auto) 0.4 Eos # (Auto) 0.1 Baso # (Auto) 0.0 WBC Differential . Differential Comment Auto diff final Sodium 140 Potassium 4.0 Chloride 104 Carbon Dioxide 31.4 Anion Gap 5 BUN 47 H Creatinine 3.50 H Estimated GFR 18 L Random Glucose 159 H Calcium 8.3 L Total Bilirubin 0.5 AST 82 H ALT 91 H Alkaline Phosphatase 118 H Total Protein 7.5 Albumin 3.3 L Lipase 244 Urine Color Yellow Urine Clarity Clear Urine pH 5.0 Ur Specific [place] 1.017 Urine Protein 500 or greater Urine Glucose (UA) 50 Urine Ketones Negative Urine Occult Blood Small H Urine Nitrate Negative Urine Bilirubin Negative Urine Urobilinogen Less than 2 Ur Leukocyte Esterase Negative Urine RBC 1 Urine WBC 2 Ur Squamous Epith Cells <1 Hyaline Casts 4 Urine Sperm Rare H Micro UA Comment Culture not ind Ur Microscopic Review Not Reportable Urine Culture Comments Culture not ind - Imaging Impressions Lumbar Spine MRI 03/01/18 12:14 CONCLUSION: Degenerative disc disease L4-L5 and L5-S1 with moderate bilateral foraminal narrowing. There is no significant spinal canal stenosis. No evidence of metastatic disease. Caprini VTE Risk Assessment Caprini VTE Risk Assessment: Moderate/High Risk (score >= 2) Caprini Risk Assessment Model: Point Value = 1 Point Value = 2 Point Value = 3 Point Value = 5 Age 41-60 Minor surgery BMI > 25 kg/m2 Swollen legs Varicose veins or History of unexplained or recurrent spontaneous Oral contraceptives or hormone replacement Sepsis (< 1 month) Serious lung disease, including pneumonia (< 1 month) Abnormal pulmonary function Acute myocardial infarction Congestive heart failure (< 1 month) History of inflammatory bowel disease Medical patient at bed rest Age 61-74 Arthroscopic surgery Major open surgery (> 45 min) Laparoscopic surgery (> 45 min) Malignancy Confined to bed (> 72 hours) Immobilizing plaster cast Central venous access Age >= 75 History of VTE Family history of VTE Factor V Leiden Prothrombin [id number] Lupus anticoagulant Anticardiolipin antibodies Elevated serum homocysteine Heparin-induced thrombocytopenia Other congenital or acquired thrombophilia Stroke (< 1 month) Elective arthroplasty Hip, pelvis, or leg fracture Acute spinal cord injury (< 1 month) Prophylaxis Regimen: Total Risk Factor Score Risk Level Prophylaxis Regimen 0-1 Low Early ambulation 2 Moderate Order ONE of the following: *Sequential Compression Device (SCD) *Heparin 5000 units SQ BID 3-4 Higher Order ONE of the following medications: *Heparin 5000 units SQ TID *Enoxaparin/Lovenox 40 mg SQ daily (WT < 150 kg, CrCl > 30 mL/min) *Enoxaparin/Lovenox 30 mg SQ daily (WT < 150 kg, CrCl > 10-29 mL/min) *Enoxaparin/Lovenox 30 mg SQ BID (WT < 150 kg, CrCl > 30 mL/min) AND/OR *Sequential Compression Device (SCD) 5 or more Highest Order ONE of the following medications: *Heparin 5000 units SQ TID (Preferred with Epidurals) *Enoxaparin/Lovenox 40 mg SQ daily (WT < 150 kg, CrCl > 30 mL/min) *Enoxaparin/Lovenox 30 mg SQ daily (WT < 150 kg, CrCl > 10-29 mL/min) *Enoxaparin/Lovenox 30 mg SQ BID (WT < 150 kg, CrCl > 30 mL/min) AND *Sequential Compression Device (SCD) Assessment and Plan - Plan Assessment/plan: 1. Lower back pain MRI of the lumbar spine shows degenerative disc disease without significant canal stenosis or evidence of metastatic disease Physical therapy consulted, appreciate assistance Morphine for breakthrough pain 2. Acute on chronic renal insufficiency BUN/creatinine 41/3.50 Baseline creatinine 2.0 IV fluid hydration Monitor renal function 3. Metastatic squamous cell carcinoma of the tongue Oncology consulted, appreciate assistance Last chemotherapy/radiation approximately 1 month ago 4. Hypertension/hyperlipidemia/coronary artery disease Continue home medications 5. Transaminitis Chronic Monitor FEN Heart healthy diet Electrolytes: Monitor and replete as needed NS at 100 cc/hour Lovenox
[2018-03-01] MEDS: Morphine Inj 4 MG/ML Vial IV.PUSH PRN (21:41)
[2018-03-01] MEDS: Enoxaparin Inj 30 MG/0.3 ML Syringe SQ SCH (22:39)
[2018-03-01] MEDS: hydrALAZINE 50 MG Tablet PO SCH (23:13)
[2018-03-01] MEDS: oxyCODONE 10 MG Controlled Release Tablet PO SCH ×2 (23:14→23:59)
[2018-03-02] MEDS: Sod Chloride 0.9% Inj 1,000 ML IV.CONT SCH ×3 (05:09→17:29)
[2018-03-02] MEDS: hydrALAZINE 50 MG Tablet PO SCH ×3 (05:34→21:38)
[2018-03-02 06:05] LABS: Calcium 7.7 mg/dL (8.5-10.1); Carbon Dioxide 27.4 meq/L (21.0-32.0); Potassium 4.1 meq/L (3.5-5.1)
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
[2018-03-02] MEDS: oxyCODONE 10 MG Controlled Release Tablet PO SCH ×2 (09:04→21:37)
[2018-03-02] MEDS: Lisinopril 10 MG Tablet PO SCH (09:05)
[2018-03-02] MEDS: amLODIPine 10 MG Tablet PO SCH (09:05)
[2018-03-02] MEDS: Morphine Inj 4 MG/ML Vial IV.PUSH PRN ×3 (10:46→20:31)
[2018-03-02] MEDS ORDERED: MethylPREDNISolone Sod Succinate Inj 40 MG/ML Vial IV.PUSH ONE (12:36)
--- NOTE | 2018-03-02 12:42 | P.PNIM ---
Subjective Interval history: Patient's pain continues. He does have improvement in his renal function which is trending back towards baseline. Car over the weekend. This may be contributory to his pain. Physical Exam Vital signs: Last Vital Signs Temp 97.9 F 03/02/18 10:43 Pulse 69 03/02/18 10:43 Resp 16 03/02/18 10:43 BP 157/97 H 03/02/18 10:43 Pulse Ox 96 03/02/18 10:43 Intake & Output 02/28/18 03/01/18 03/02/18 03/03/18 06:59 06:59 06:59 06:59 Intake Total 1830 / 1830 1000 / 1000 Output Total 300 / 300 Balance 1530 / 1530 1000 / 1000 Weight 55.5 kg Narrative: GENERAL: NAD, A&Ox3 HEAD: Normocephalic. NECK: Supple, trachea midline. No lymphadenopathy. EYES: No scleral icterus. No injection or drainage. CARDIOVASCULAR: Regular rate and rhythm without murmurs, gallops, or rubs. RESPIRATORY: Breath sounds equal bilaterally. No accessory muscle use. GASTROINTESTINAL: Abdomen soft, non-tender, nondistended. MUSCULOSKELETAL: No cyanosis, or edema. Decreased range of motion globally secondary to pain. SKIN: Warm and dry. NEURO: No focal neurological deficits. Results Labs CBC & Chem 7: 03/01/18 12:30 03/02/18 04:20 Imaging Imaging: Impressions Lumbar Spine MRI 03/01/18 12:14 CONCLUSION: Degenerative disc disease L4-L5 and L5-S1 with moderate bilateral foraminal narrowing. There is no significant spinal canal stenosis. No evidence of metastatic disease. Assessment and Plan Plan 63-year-old male admitted secondary to lower back pain and acute on chronic renal insufficiency Lower back pain Not yet improved Likely related to over exertion and activity Physical therapy continues Continue oxycodone Morphine for breakthrough pain Steroids initiated for an anti-inflammatory effect, patient a poor candidate for NSAIDs Acute on chronic renal insufficiency Follow BUN and creatinine Patient does have a downward trend today back towards his creatinine baseline of approximately 2.0 Today's creatinine is 2.8 Continue IV fluids Continue to monitor renal function Metastatic squamous cell carcinoma of tongue Oncology following Continue management as an outpatient Hypertension Continue baseline treatment Follow blood pressures Adjust treatments as needed Hyperlipidemia Continue present treatment Follow as an outpatient Coronary artery disease Follow clinically No reports of chest pain Transaminitis chronic Follow lab values DVT prophylaxis Lovenox Progress Note: Quality VTE Deep Vein Thrombosis/Pulmonary Embolism Present on Admission: No
--- NOTE | 2018-03-02 16:04 | P.DIET ---
Nutritional Evaluation Type of nutrition evaluation: initial Nutrition consult regarding: Diet Evaluation Nutrition screening: Weight Loss > 10 lbs Screening comments: 03/01 WLS Objective - Diagnosis acute on chronic renal insufficiency - Objective % IBW: 71 (IBW = 172lb) Body Weight Used for Calculations: IBW Energy Needs - Lower Range (kCal/kg): 35 Energy Needs - Upper Range (kCal/kg): 40 Lower Limit kCal/kg (kCals): 1,943 Upper Limit kCal/kg (kCals): 2,220 Lower Limit Protein Factor (Grams per Kg): 1.0 Upper Limit Protein Factor (Grams per Kg): 1.2 Lower Protein Needs (Protein): 56 Upper Protein Needs (Protein): 67 Dietitian Reviewed in Medical Record: Current diet, Curent medications, Intake & Output, Labs, Medical history Diet Order: cardiac diet Oral Diet Intake Amount: Excellent 90%+ Objective Comments: PMH: adult failure to thrive, CKD III, high blood pressure, head/neck CA, hepetitis C, MRSA, PTSD, prostate carcinoma, squamous cell carcinoma base of tongue Labs: random glucose 159 115, BUN 38, Cr 2.80, GFR 23 Assessment Assessment: Pt currently at nutritional risk r/t unplanned wt loss of more than 10lbs. Pt stated he had a good appetite today, consuming 100% of all his meals and said that he felt hungry during RD visit. Pt mentioned he had no teeth and is planning on getting new dentures, but being admitted to the hospital delayed the process, otherwise pt is consuming foods well. Pt stated he weighed 255lb before but could not give a timeframe of how long. RD to recommend Suplena BID as a PO supplement for additional nutrition. Continue to monitor PO and supplement intake. Labs reviewed, dietitian following. Recommendations: 1. RD to recommend Suplena BID as a PO supplement for additional nutrition 2. Continue to monitor PO and supplement intake 3. Dietitian following Dietitian to Monitor: Lab values, Renal labs, Supplement acceptance, Intake & Output, Weight change, PO Intake, Medical course
[2018-03-02] MEDS: Enoxaparin Inj 30 MG/0.3 ML Syringe SQ SCH (20:40)
[2018-03-03] MEDS: Morphine Inj 4 MG/ML Vial IV.PUSH PRN ×7 (00:13→23:22)
[2018-03-03] MEDS: Sod Chloride 0.9% Inj 1,000 ML IV.CONT SCH ×2 (04:05→15:22)
[2018-03-03 05:13] LABS: Baso % (Auto) 0.2 % (0.0-2.0); Eos % (Auto) 0.2 % (0.0-4.0); Hematocrit 25.8 % (39.0-51.0); Hemoglobin 9.1 gm/dL (13.0-17.0); Lymph # (Auto) 0.5 th/mm3 (1.0-4.8); Mean Corpuscular HGB Conc 35.4 % (32.0-36.0); Mean Corpuscular Hemoglobin 31.3 pg (27.0-34.0); Mean Corpuscular Volume 88.2 fL (80.0-100.0); Mean Platelet Volume 7.2 fL (7.0-11.0); Mono # (Auto) 0.4 th/mm3 (0.0-0.9); Mono % (Auto) 7.4 % (0.0-8.0); Neut # (Auto) 4.8 th/mm3 (1.8-7.7); Neut % (Auto) 84.2 % (16.0-70.0); Platelet Count 195 th/mm3 (150-450); Red Blood Count 2.92 mil/mm3 (4.50-5.90); Red Cell Distribution Width 14.7 % (11.6-17.2); White Blood Count 5.7 th/mm3 (4.0-11.0)
[2018-03-03 05:36] LABS: Alanine Aminotransferase 59 U/L (12-78); Albumin 2.4 g/dL (3.4-5.0); Anion Gap 5 meq/L (5-15); Aspartate Aminotransferase 47 U/L (15-37); Blood Urea Nitrogen 40 mg/dL (7-18); Calcium 7.6 mg/dL (8.5-10.1); Carbon Dioxide 25.8 meq/L (21.0-32.0); Chloride 108 meq/L (98-107); Glomerular Filtration Rate 25 mL/min (>89); Glucose,Random 101 mg/dL (74-106); Potassium 4.7 meq/L (3.5-5.1); Sodium 139 meq/L (136-145)
[2018-03-03 05:45] LABS: Alkaline Phosphatase 108 U/L (45-117); Total Protein 6.1 g/dL (6.4-8.2)
[2018-03-03] MEDS: hydrALAZINE 50 MG Tablet PO SCH ×3 (06:13→21:04)
[2018-03-03] MEDS: oxyCODONE 10 MG Controlled Release Tablet PO SCH ×2 (08:09→21:05)
[2018-03-03] MEDS: amLODIPine 10 MG Tablet PO SCH (08:10)
[2018-03-03] MEDS: Lisinopril 10 MG Tablet PO SCH (08:10)
[2018-03-03] MEDS ORDERED: predniSONE 10 MG Tablet PO SCH (09:00)
--- NOTE | 2018-03-03 13:03 | P.PNIM ---
Subjective Interval history: Patient still reports pain. He has remained in bed the whole time here and has not moved out of bed. Steroids were initiated yesterday to try to improve his pain but he notices no difference, however he does report today that he feels he might build to get out of bed. Physical Exam Vital signs: Last Vital Signs Temp 98.1 F 03/03/18 08:00 Pulse 71 03/03/18 12:00 Resp 20 03/03/18 12:00 BP 169/94 H 03/03/18 12:00 Pulse Ox 97 03/03/18 12:00 Intake & Output 03/01/18 03/02/18 03/03/18 03/04/18 06:59 06:59 06:59 06:59 Intake Total 1830 / 1830 5846 / 5846 Output Total 300 / 300 3050 / 3050 Balance 1530 / 1530 2796 / 2796 Weight 55.5 kg 56 kg Narrative: GENERAL: NAD, A&Ox3 HEAD: Normocephalic. NECK: Supple, trachea midline. No lymphadenopathy. EYES: No scleral icterus. No injection or drainage. CARDIOVASCULAR: Regular rate and rhythm without murmurs, gallops, or rubs. RESPIRATORY: Breath sounds equal bilaterally. No accessory muscle use. GASTROINTESTINAL: Abdomen soft, non-tender, nondistended. MUSCULOSKELETAL: No cyanosis, or edema. Decreased range of motion globally secondary to pain. SKIN: Warm and dry. NEURO: No focal neurological deficits. Results Labs CBC & Chem 7: 03/03/18 04:20 03/03/18 04:20 Assessment and Plan Plan 63-year-old male admitted secondary to lower back pain and acute on chronic renal insufficiency Onset of hypertensive urgency, likely related to steroids. Discontinue steroids. As needed clonidine. Patient encouraged to work with physical therapy today to see how well he is able to ambulate. Possible discharge tomorrow if patient ambulatory. Lower back pain Not yet improved Likely related to over exertion and activity Physical therapy continues Continue oxycodone Morphine for breakthrough pain Steroids initiated for an anti-inflammatory effect, patient a poor candidate for NSAIDs Acute on chronic renal insufficiency Follow BUN and creatinine Patient does have a downward trend today back towards his creatinine baseline of approximately 2.0 Today's creatinine is 2.8 Continue IV fluids Continue to monitor renal function Metastatic squamous cell carcinoma of tongue Oncology following Continue management as an outpatient Hypertension Continue baseline treatment Follow blood pressures Adjust treatments as needed Hyperlipidemia Continue present treatment Follow as an outpatient Coronary artery disease Follow clinically No reports of chest pain Transaminitis chronic Follow lab values DVT prophylaxis Lovenox Progress Note: Quality VTE Deep Vein Thrombosis/Pulmonary Embolism Present on Admission: No
[2018-03-03] MEDS: Enoxaparin Inj 30 MG/0.3 ML Syringe SQ SCH (21:05)
[2018-03-04] MEDS: Morphine Inj 4 MG/ML Vial IV.PUSH PRN ×2 (03:06→07:40)
[2018-03-04] MEDS: Sod Chloride 0.9% Inj 1,000 ML IV.CONT SCH (03:07)
[2018-03-04] MEDS: hydrALAZINE 50 MG Tablet PO SCH (05:34)
[2018-03-04] MEDS: Lisinopril 10 MG Tablet PO SCH (08:33)
[2018-03-04] MEDS: amLODIPine 10 MG Tablet PO SCH (08:33)
[2018-03-04] MEDS: oxyCODONE 10 MG Controlled Release Tablet PO SCH (09:49)
[2018-03-04] MEDS ORDERED: Heparin Central Flush 100 UNIT/ML 5 ML Vial IV.FLUSH ONE (10:00)
--- NOTE | 2018-03-04 11:32 | P.DS ---
DS: Providers Date of admission: 03/01/18 18:20 Primary care physician: Mateo Pena MD Consults: 03/01/18 20:06 Consult to Oncology Routine Consulting Provider: Bernadette Lawson Reason for Consultation: Squamous cell carcinoma of the tongue with acute renal failure and lower back pain Notified:: Service Spoke with:: Elizabeth Date Notified:: 03/01/18 Time Notified:: 20:20 Ordering Provider: FABI Brief History from admission: 63-year-old male with past medical history significant for squamous cell carcinoma of the tongue with biopsy-proven metastatic disease, hypertension, hyperlipidemia, coronary artery disease, history of prostate cancer and history of CVA without residual deficits presents to the emergency department for evaluation of lower back pain. The patient reports that for the past week he has had increasingly worsening lower back pain to the point where he can now barely ambulate. He denies any fevers/chills. He completed chemotherapy and radiation 1 month ago. His oncologist is Dr. Pena. The patient denies any chest pain or shortness of breath. No abdominal pain. No nausea/vomiting/ diarrhea. No focal neurologic deficits. DS: Summary Mr. Beard is a 63-year-old male. He was admitted secondary to acute back pain and inability to ambulate. He also had elevated creatinine level compared to baseline. His creatinine level had gone from 2.0 to 3.5. He was treated with IV hydration and his renal function has improved through time. Pain medications were adjusted for temporary relief of his pain. Etiology for his pain is likely related to overactivity as he painted a car at the previous 2 days before admit. He is ambulatory at this point and his renal function has improved and trended back towards baseline. He is medically stable and cleared for discharge home today. Time Spent with Patient Total time spent providing and/or coordinating discharge services: Quality: VTE Deep Vein Thrombosis/Pulmonary Embolism Present on Admission: No Results Impressions ITS Impressions Lumbar Spine MRI 03/01/18 12:14 CONCLUSION: Degenerative disc disease L4-L5 and L5-S1 with moderate bilateral foraminal narrowing. There is no significant spinal canal stenosis. No evidence of metastatic disease. Discharge Plan Discharge Disposition Patient Disposition: Discharge Home Discharge Condition Condition: Stable Discharge Order Discharge Orders: Discharge Order (Routine); Ordered 03/04/18 Ordered By: Rhett Crystal Discharge Details Anticipated Discharge Date: 03/04/18 Physicians Team Primary Care Provider: Mateo Pena Attending Provider: Rhett Crystal Other Providers: Bernadette Lawson Rxs /Orders / Referrals /Forms Prescriptions: New hydromorphone [Dilaudid] 4 mg tablet 4 mg PO Q6H PRN (Reason: Pain 3 to 10) Qty: 20 RF: 0 Continue lisinopril 10 mg Tablet 10 mg PO DAILY RF: 0 hydralazine 50 mg Tablet 50 mg PO Q8HR RF: 0 amlodipine [Norvasc] 10 mg Tablet 10 mg PO DAILY RF: 0 oxycodone [OxyContin] 30 mg Tablet,Oral Only,Ext.Rel.12 Hr 30 mg PO Q12H RF: 0 Discontinued oxycodone 10 mg Tablet 10 mg PO Q6H PRN (Reason: Pain) RF: 0 Referrals: Mateo Pena MD [Primary Care Provider] - See Instructions Discharge Instructions Patient Printed Instructions: Hydromorphone (By mouth), Preventing Infections ( GEN) Additional Instructions: follow up with primary care provider Status ED Status: Left Department Discharge Information Discharge Date/Time: 03/04/18 10:17
== END 2018-03-04 10:17 | disposition home or self-care (01) ==
LOC: NEDA 11:27 → NEPE 11:27 → HCIN 23:01
PROVIDERS: ADMIT Hospitalist; ATTEND Hospitalist
DX: C02.9 Malignant neoplasm of tongue, unspecified; N17.9 Acute kidney failure, unspecified; Z79.899 Other long term (current) drug therapy; Z86.73 Personal history of transient ischemic attack (TIA), and cerebral infarction without residual deficits; C76.0 Malignant neoplasm of head, face and neck; N18.3 Chronic kidney disease, stage 3 (moderate); F43.10 Post-traumatic stress disorder, unspecified; M47.9 Spondylosis, unspecified; E78.5 Hyperlipidemia, unspecified; F03.90 Unspecified dementia, unspecified severity, without behavioral disturbance, psychotic disturbance, mood disturbance, and anxiety; Z92.3 Personal history of irradiation; E86.0 Dehydration; Z92.21 Personal history of antineoplastic chemotherapy; F17.210 Nicotine dependence, cigarettes, uncomplicated; Z93.1 Gastrostomy status; I16.0 Hypertensive urgency; H05.401 Unspecified enophthalmos, right eye; I12.9 Hypertensive chronic kidney disease with stage 1 through stage 4 chronic kidney disease, or unspecified chronic kidney disease; M51.36 Other intervertebral disc degeneration, lumbar region; I25.10 Atherosclerotic heart disease of native coronary artery without angina pectoris; M54.9 Dorsalgia, unspecified; Z86.14 Personal history of Methicillin resistant Staphylococcus aureus infection; M51.37 Other intervertebral disc degeneration, lumbosacral region